=== PATIENT | female | born 1940 | race Caucasian/White ===

== ENCOUNTER → 2017-07-26 12:54 | Outpatient (CLI) | payer MEDICARE, OTHER, SELFPAY ==
--- NOTE | 2017-07-26 12:57 | CT_ITS ---
STUDY: CT RIGHT SHOULDER REASON FOR EXAM: Female, 76 years old. Osteoarthritis. RADIATION DOSAGE (If Supplied By Facility): CTDIvol = ( 24.58 ) mGy, DLP = ( 376.22 ) mGycm TECHNIQUE: The patient was scanned in a multi detector CT scanner. High resolution transaxial imaging was performed without the administration of intravenous contrast material. Sagittal and coronal images were reconstructed. Individualized dose optimization techniques were used for this CT. COMPARISON: None. FINDINGS: No acute fracture or dislocation. Very severe glenohumeral osteoarthritis. There is [id number] osteoarthritis with sclerosis of the glenoid and humeral head, flattening of the articular surface of the humerus, and prominent osteophytes. There are calcifications seen between the humeral head and acromion consistent with calcific tendinitis. Cannot exclude rotator cuff tear. There is a probable fluid density mass in the anterior subcoracoid space approximately 4.7 cm in size and best seen on axial image 27 most consistent with a large ganglion cyst. CT/Extremity Upper without Contra IMPRESSION: No fracture or dislocation. Severe long-standing glenohumeral osteoarthritis. Probable calcific tendinitis. MRI recommended. Electronically Signed: Chip Solitario MD at 18:21 EDT , Service support ,
== END ==
PROVIDERS: Family Provider Student in an Organized Health Care Education/Training Program; PCP Student in an Organized Health Care Education/Training Program; Visit Provider Specialist
DX: M19.211 Secondary osteoarthritis, right shoulder (principal)
CPT/HCPCS: 73200

== ENCOUNTER 2017-11-28 05:56 | Inpatient (IN) | payer MEDICARE, OTHER, SELFPAY ==
--- NOTE | 2017-11-13 14:07 | PCM.HP.BLA ---
History and Physical DATE OF SURGERY: 11/28/2017 SCHEDULED PROCEDURE: Right Reverse Total Shoulder Arthroplasty HISTORY OF PRESENT ILLNESS: This is a 77-year-old female who has been having ongoing pain in her bilateral shoulders for the past 1-2 years. Patient's states the right side is worse than her left. Patient is right-hand dominant. Patient states she has difficult time with any activities that require any overhead lifting. Pain is primarily over the lateral aspect of the shoulder and into the upper arm. She feels there is more limitation of range of motion on the right when compared to the left. She also complains of weakness bilateral shoulders. Patient has tried previous conservative measures consisting of nonsteroidal anti-inflammatories, corticosteroid injection, and physical therapy. Patient continues to have significant dysfunction of the right shoulder. She states it is keeping her up and she has difficult time with sleeping. She has been struggling with activities of daily living. After failing conservative measures and discussing all treatment options of Dr. David Nieto, the patient would like to proceed with a right reverse total shoulder arthroplasty. We are obtaining surgical clearance from patient's primary care physician. Patient currently denies any chest pain, shortness of breath, fevers chills, recent infections. Patient has pertinent medical history for hypertension. REVIEW OF SYSTEMS: ROS: Const: Denies anorexia, anxiety, change in appetite, fever, hard of hearing, vision problems and weight change. CV: Denies chest pain, heart murmur, irregular heartbeat and peripheral vascular disease. Resp: Denies asthma, cough, pneumonia, sleep apnea, SOB, tuberculosis and wheezing. GI: Reports constipation and heartburn, but denies diarrhea, difficulty swallowing, nausea, bloody stools and vomiting. : Genital: reports postmenopausal. Urinary: denies incontinence. Musculo: Reports weakness, but denies leg swelling, limp and trouble walking. Skin: Denies Raynaud's, history of shingles and tattoo. Neuro: Reports dizziness and vertigo but denies ambulatory dysfunction, numbness/tingling and tremor. Psych: Reports stress, but denies anxiety, depression, insomnia and mental illness. Ferdinand/Lymph: Denies anemia, bleeding/bruising tendency and past transfusion. Reviewed, no changes. PAST MEDICAL HISTORY: Advance Care Plan: Other Directive, POA Effective Date: 09/11/2014 Other Directive, LIVING WILL Effective Date: 09/11/2014 PMH: Medical Problems: Arthritis, High Blood Pressure, Thyroid Disease, Hard Of Hearing, Hypercholesterolemia Accidents: None Surgical Hx: Gallbladder - (1984) [facility] Tonsillectomy - (1952) [facility] Knee Replacement LT - (06/09/2008) DR MONROY AT [facility] RT TKR - (01/12/2009) DR MONROY [facility] Anesthesia Complications: None Assistive Devices: Glasses, Dentures, Hearing Aid Reviewed, no changes. 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 Personal Habits: Cigarette Use: Never.Alcohol: Occasionally.Drug Use: Denies Use.Enjoy Exercising: Never Exercises. Reviewed, no changes. VITALS: Ht: 62 Wt: 170lb Wt k.112 BMI: 31.1 BP: 147/102 Pulse: 54 Resp: 16 T: 97.9 T: 36.6C ALLERGIES: Morphine MEDICATIONS: Pravastatin Sodium 40 mg 1po qday, Levothyroxine Sodium 125 mcg 1po qday, Sertraline HCL 50 mg 1 by mouth every day, Aromasin 25 mg 1 tab PO daily, Losartan Potassium 25 mg 1 tab PO daily, Calcium 1500 mg 1 tab PO daily PRE-OP EXAM: General appearance:NORMAL Other: Eyes: Conjunctivae and lids: NORMAL Pupils: ERR Ears, Nose, Mouth, and Throat: NORMAL Other: Inspection of lips, teeth and gums: NORMAL Other: Neck: Examination of neck: no masses noted. Respiratory: Assessment of respiratory effort: NORMAL Other: Auscultation of lungs: clear to auscultation no wheezes, rhonchi or rales. Cardiovascular: Auscultation of heart: regular rate and rhythm, no murmurs, gallops or rubs. Exam of carotid arteries: NORMAL Other: Gastrointestinal: Exam of abdomen: soft, nontender, nondistended bowel sounds present. PHYSICAL EXAMINATION: Right shoulder is cool to touch without erythema. There is mild atrophy appreciated. Shoulder range of motion on the right 80 active forward flexion, passive forward flexion to 85. External rotation is -10 on the right, internal rotation T12 on the right and T8 on the left. Patient does have scapular dyskinesia with crepitus bilaterally. Supraspinatus strength 4/5 on the right. Sensations intact to light touch. IMAGING STUDIES: 1. X-rays of the right shoulder reveal severe glenohumeral osteoarthritis with posterior glenoid wear. There is joint space narrowing, osteophyte formation, and subchondral sclerosis. 2. MRI of the right shoulder show severe osteoarthritis with near full-thickness tear of the rotator cuff IMPRESSION: 1. 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 Hypertension 3. Thyroid disease 4. Hypercholesterolemia PLAN: Dr. Nieto did discuss and review with the patient all treatment options including surgical versus nonsurgical options. Patient does wish to proceed with the above-stated procedure. Potential risks, benefits, and complications of the procedure were discussed in detail including but not limited to , infection, nerve and blood vessel damage, persistent pain, numbness, tingling, paresthesias, blood clot, pulmonary embolism, and requirement for possible further surgery. The patient expressed full understanding and has no further questions for the doctor. Patient does agree to proceed with the above-stated procedure and has signed the surgery consent form. ___ I have re-examined the patient. There are no clinical changes since date of exam. ___ See progress notes for changes. ___ Dictated on admission Date: Time: Signature:
[2017-11-13 14:57] VITALS: BP 139/72; PULSE 53; RESP 16; TEMP 36.9; O2SAT 94; BMI 31.1
--- NOTE | 2017-11-13 15:30 | SDCEKG_ITS ---
Test Reason : Blood Pressure : / mmHG Vent. Rate : 051 BPM Atrial Rate : 051 BPM P-R Int : 158 ms QRS Dur : 088 ms QT Int : 426 ms P-R-T Axes : 002 019 000 degrees QTc Int : 392 ms Sinus bradycardia Nonspecific T wave abnormality Abnormal ECG Confirmed by MASSIEL SIMMS, IZAIAH ([id number]), editor newspaper BRIANNA THAO ([id number]) on 11/16/2017 12:04:56 PM Referred By: David Nieto Confirmed By:IZAIAH RANKIN MD
[2017-11-13 15:45] LABS: Absolute Lymphocyte Count 1.92 X10^3/ul (0.83-4.51); Absolute Neutrophil Count 5.2 X10^3/uL (2.0-7.7); Basophil# 0.04 X10^3/uL; Basophil% 0.5 % (0-1); Eosinophil# 0.25 X10^3/uL; Eosinophils% 3.1 % (0-5); Hematocrit 38.2 % (37-47); Hemoglobin 12.7 g/dl (12.0-15.0); Lymphocyte # 1.92 X10^3/ul (4.0); Lymphocyte % 23.6 % (19-41); Mean Corp Hgb Conc 33.2 g/gl (32-36); Mean Corpuscular Hgb 30.5 pg (27.0-32.0); Mean Corpuscular Volume 91.6 fL (81-99); Mean Platelet Vol. 11.2 fl (6.2-12.0); Monocyte# 0.74 X10^3/uL; Monocyte% 9.1 % (0-10); Neutrophil # 5.16 X10^3/uL (2.7-7.7); Neutrophil % 63.6 % (47-70); Platelet Count 247 K/mm3 (150-450); RBC Distribution Width CV 13.7 % (11.6-14.6); RBC Distribution Width SD 45.2 fl (35.1-43.9); Red Blood Count 4.17 M/mm3 (4.2-5.4); White Blood Count 8.1 K/mm3 (4.4-11.0)
[2017-11-13 15:48] LABS: POSITIVE COUNT NO; POSITIVE DIFFERENTIAL NO; POSITIVE MORPHOLOGY NO
[2017-11-13 16:25] LABS: Anion Gap 9 (5-15); BUN 13 mg/dL (7-18); Calcium,Total 9.1 mg/dL (8.5-10.1); Chloride 106 mmol/L (98-107); Creatinine, Serum 0.81 mg/dL (0.55-1.02); EST Glomerular Filtration Rate 73 mL/min (>60); Est Glom Filt Rate - Afr Amer 88 mL/min (>60); Glucose 136 mg/dL (74-106); Sodium Level 143 mmol/L (136-145); Thyroid Stim Hormone (TSH) 2.27 uIU/mL (0.358-3.74)
[2017-11-28] VITALS (15 sets, daily range): BP systolic 134–192; BP diastolic 73–95; PULSE 56–89; RESP 16–18; TEMP 36.2–36.8; O2SAT 92–99; BMI 31.1
[2017-11-28] MEDS: oxyCODONE HCl Cr 10 MG Tablet PO (06:43)
[2017-11-28] MEDS: Celecoxib 200 MG Capsule 400 MG PO (06:44)
[2017-11-28] MEDS: Acetaminophen 500 MG Tablet 1000 MG PO ×3 (06:44→21:45)
--- NOTE | 2017-11-28 07:01 | PCM.OPRPT ---
Report of Operation Date of Procedure: 11/28/17 Pre-Operative Diagnosis: Right shoulder primary osteoarthritis. Right shoulder rotator cuff tear Post-Operative Diagnosis: Right shoulder primary osteoarthritis. Right shoulder rotator cuff tear Surgery/Procedure Performed:: Right reverse total shoulder replacement Description of Surgical Findings:: Stable shoulder well reduced extension service advisor: Kurt Thornton Type of Anesthesia:: General Anesthesiologist: Tiburcio Duarte Special Medications: 2 g Ancef, 1 g TXA at incision, 1 g TXA closure, 10 mg Decadron, joint cocktail (5 mg Duramorph, 30 mL of 0.5% Ropivicaine, 1000 units of epinephrine, 30 mg of Toradol), 1 g vancomycin throughout case Specimen's removed: Bony cuts Estimated Blood Loss (mL): 150 Fluids Replaced: 500 ML Description of Procedure: Components used 1. Equinox glenoid baseplate from [employer] for reverse TSA 2. Equinox 36 mm Glenosphere 3. Equinox 36mm, 0mm humeral liner 4. Equinox reverse TSA humeral adapter tray 0mm 5. Equinox humeral stem primary press-fit preserve 10 mm mm size Brief history/Operative indications: 77 yo F with history of R shoulder pain and cuff tear arthropathy. Patient failed conservative measures as mentioned in the H&P. After discussion of risk and benefits of reverse total shoulder replacement including but not limited to blood loss, DVTs, PEs, nerve vessel damage, infection, general risk of anesthesia including loss of life, instability and stiffness patient demonstrating understanding wish to proceed was able to sign informed consent. Medical clearance was obtained. Procedure: On the date of the procedure, patient's R upper extremity was marked in the preoperative area. Patient was taken back to the operating room where they were placed on the table in the supine position. Anesthesia assumed control of the C-spine and airway, then administered anesthetic. All bony prominences were identified well-padded, the head was secured and the patient was placed in the beachchair position at about 35? inclination. Anesthesia remained in control of the C-spine airway throughout the remainder of the procedure. Patient was then appropriately fastened to the table and the R upper extremity was prepped in a sterile fashion. The surgeons then scrubbed. Upon reentering the room, the R upper extremity was draped in a sterile fashion and the incision was marked out. Timeout was called, everyone agreed upon the side, the site, the procedure to be performed, patient identity and antibiotics given. Incision was taken down through skin and subcutaneous tissue, fat down to fascia. The stripe of the deltopectoral interval and cephalic vein were identified and blunt dissection was used to retract the deltoid. The cephalic vein was retracted laterally. Clavipectoral fascia was then incised and a cobra retractor was placed in the wound. The proximal one third of the pectoralis major insertion was released. Pectoralis tendon insertion was used to tenodesed the biceps tendon which was identified in the bicipital groove. Tenodesis was done with #1 Vicryl. Proximally we followed the biceps tendon after transecting it into the rotator interval. The rotator interval was split and the arm was externally rotated. The split was 1 cm medial to the bicipital groove. Subscapularis tendon was released. We released down the anterior portion of the humeral head and a vieyra elevator was used to release the inferior portion of the humeral head. The arm was externally rotated and the shoulder was dislocated. The [employer] humeral head cutting guide was used to make humeral cut. This was done at 20? retroversion. Once his humeral head cut was made humerus was retracted out of the way and the glenoid was exposed. After exposing the glenoid, the labrum and the remaining proximal biceps were debrided. At this time we are able to view the entire outer edge of the glenoid. A central pin was placed we sequentially reamed over this central pin to 38mm. Once this was completed the central pedicle was drilled. The glenoid baseplate was impacted into place. Wound was closely irrigated out with normal saline we then drilled sequentially for 4 screws. Screws were placed superiorly and inferiorly and tightened down the screws. Then anteriorly and posteriorly. Once the screws were appropriately tightened into place the glenoid baseplate was compressed against the exposed subchondral bone. Locking caps were placed and a 36mm glenosphere was impacted into place engaging the Jeffers taper. The central screw was then tightened into place. Attention was then turned towards the humerus. The humerus was again externally rotated exposing the proximal portion of the humerus. Central canal finder was then used to open up the canal. We then broached to a 10mm stem. We trialed the 0mm liner, with the 0mm humeral baseplate. We obtained an adequate reduction at this time with a nice stable shoulder. Good internal rotation to the gluteus, forward elevation to 140?, external rotation to 20?. Final components were then assembled on the back table, trials were removed and the wound was copiously irrigated with normal saline after dislocating the shoulder. Once the final components were assembled they were impacted into place. Shoulder was then reduced and found to be stable with good range of motion. Subscapularis tendon not repairable. The wound was then copiously irrigated out with a 1 L normal saline lavage. The deltopectoral fascia was then closed using #1 Vicryl skin was closed using 2-0 Vicryl interrupted sutures and final skin closure was done with 3-0 Monocryl. Steri-Strips are placed for final skin closure. Sterile dressing was placed patient was then placed in a sling and awakened by anesthesia. Patient was then transferred to the PACU for recovery. Postoperative plan: Patient will be admitted to the hospital overnight. They will get physical therapy starting in 2 weeks with normal postoperative regimen. Patient will be placed on 325 mg aspirin daily for DVT prophylaxis. The first postoperative appointment will be in 2 weeks for wound check and initiation of phase 1 physical therapy. During the course of the procedure the physician assistant customer service manager played a vital role. His intimate knowledge of my steps in the procedure aided in safe and expedient completion of the procedure. The PA played a vital rolls in positioning particularly in obtaining the appropriate beach chair position and securing the patient's body and head to the table. The PA was also vital in the retraction of soft tissues during the exposure and especially the glenoid work as this is a vital part of the procedure to prevent neurovascular damage. the PA was also vital and protecting soft tissues during times of bony cuts and reaming. He also played a vital role in closure with my direct supervision. The PA was also important during reduction and dislocation of the joint and trials intraoperatively. Grafts/Implants Used: [employer] Equinox preserve stem - Complications NONE - Admit VTE Documentation VTE Present on Admission: No VTE Mechan Device Prophylaxis: SCD's VTE Pharm Prophylaxis ordered?: Yes
[2017-11-28] MEDS: Cefazolin 2 GM in 0.9% Normal Saline 100 ML IV (08:01)
--- NOTE | 2017-11-28 10:10 | RAD_ITS ---
RAD/Shoulder One View IMPRESSION: Appropriate postsurgical features. Correlate with operative report. Electronically Signed: Macho Karen, at 10:26 EDT Tel , Service support ,
--- NOTE | 2017-11-28 10:33 | SUR.PHASEI ---
1012 pt awake. speech slurred. pt aware that voice sounds different. tongue midline, eye brow raise equal, equal santos hand grasps, equal pedal pushes. Dr Bonilla paged.
[2017-11-28] MEDS: Lactated Ringers 1,000 ML 125 ML IV ×2 (13:17→21:52)
--- NOTE | 2017-11-28 14:15 | PCM.CONS.GEN ---
Problem List (1) Dysphonia Status: Acute Reason for Consult Date of Consultation: 11/28/17 History of Present Illness: The patient is a 77 year old F admitted today for right upper extremity orthopedic procedure. a local block was performed in the right lower neck. the patient then became hoarse, with globus sensation. she had no other complaints. the procedure was completed per usual; the patient had an uneventful intubation and extubation. Past Medical History Allergies morphine Adverse Reaction (Verified 11/13/17 14:45) Vomiting Home Medications: Ambulatory Orders Medication Instructions Recorded Levothyroxine [Synthroid] 125 mcg PO DAILY 01/30/13 Metoprolol Tartrate [Lopressor] 25 mg PO BID 01/30/13 Pravastatin [Pravachol] 40 mg PO QHS 01/30/13 Sertraline HCl [Zoloft] 100 mg PO DAILY 12/04/15 Acetaminophen [Tylenol Extra 500 mg PO DAILY PRN PRN 11/13/17 Strength] Calcium Carbonate [Calcium] 1,500 mg PO QHS 11/13/17 Exemestane [Aromasin] 25 mg PO DAILY 11/13/17 Smoking Status: Never smoker Tobacco Use: Non-smoker Review of Systems HEENT: Denies: Head Aches, Sinus Congestion, Sinus Drainage Cardiovascular: Denies: Chest Pain, Palpitations Respiratory: Reports: - - no stridor. Denies: Cough, Shortness of breath at rest, Sputum production Patient Problems: Active and Suspected Problems Dysphonia (Acute) - Physical Exam General: Alert, Oriented x3, Cooperative HEENT: Atraumatic, PERRLA, EOMI, Normocephalic Neck: Supple, No JVD, Negative Carotid Bruits Lungs: - - no stridor Vital Signs Temp Pulse Resp BP Pulse Ox 97.1 F L 80 18 169/81 H 97 11/28/17 13:52 11/28/17 14:06 11/28/17 13:52 11/28/17 14:06 11/28/17 13:52 Oxygen Flow Rate (L/min) 2 Oxygen Delivery Method Nasal Cannula Weight: 77.111 kg Body Mass Index (BMI) 31.1 Intake and Output for Last 24 Hours 11/26/17 11/27/17 11/28/17 23:59 23:59 23:59 Intake Total 700 / 700 Balance 700 / 700 Assessment/Plan All Active Problems Dysphonia (Acute) 77 year old female with dysphonia after right-sided block. -PO liquid challenge demonstrated no aspiration symptoms -flexible laryngoscopy showed an immobile right vocal cord, in the paramedian position. left cord mobile. airway widely patent -recommend slow PO intake for the remainder of the day (specifically, sips of liquids. no restrictions for solids) -f/u with dr guy in clinic whenever convenient this week - [id number]
--- NOTE | 2017-11-28 14:21 | PCM.OPRPT ---
Problem List (1) Dysphonia Status: Acute Report of Operation Date of Procedure: 11/28/17 Pre-Operative Diagnosis: dysphonia Post-Operative Diagnosis: dysphonia Surgery/Procedure Performed:: fiberoptic flexible laryngoscopy book packer: none Type of Anesthesia:: None Description of Procedure: the tip of the flexible laryngoscope was placed into the right nasal cavity. this was advanced to the nasopharynx. no nasopharyngeal masses. the supraglottis was normal including the epiglottis and arytenoids. the right vocal cord was immobile and paramedian. the left cord moved normally. the airway was widely patent. there were no masses or mucosal irregularities.
[2017-11-28] MEDS: Famotidine 20 MG Tablet PO (14:40)
[2017-11-28] MEDS: Aspirin 325 MG Tablet PO (14:40)
[2017-11-28] MEDS: Sertraline 100 MG Tablet PO (14:40)
[2017-11-28] MEDS: Cefazolin 1 GM/50 ML BAG IV (16:26)
[2017-11-28] MEDS: Pravastatin 40 MG Tablet PO (21:44)
[2017-11-28] MEDS: Calcium (Elemental) 500 MG Tablet 1500 MG PO (21:45)
[2017-11-28] MEDS: Metoprolol Tartrate 25 MG Tablet PO (21:45)
[2017-11-28] MEDS: oxyCODONE 5 MG Tablet PO (21:49)
[2017-11-29] MEDS: Cefazolin 1 GM/50 ML BAG IV (00:06)
[2017-11-29 02:05] VITALS: BP 140/72; PULSE 80; RESP 18; TEMP 36.5; O2SAT 97
[2017-11-29] MEDS: Acetaminophen 500 MG Tablet 1000 MG PO (05:44)
[2017-11-29] MEDS: Levothyroxine 125 MCG Tablet PO (05:44)
[2017-11-29] MEDS: Lactated Ringers 1,000 ML 125 ML IV (05:45)
--- NOTE | 2017-11-29 07:13 | PCM.PN.ORT ---
Patient Problems: Active and Suspected Problems Dysphonia (Acute) Subjective: The patient was sitting in bed upon examination. Patient denies any chest pain, shortness of breath, dizziness, lightheadedness, nausea or vomiting, or calf pain. Pain is controlled on medications. No adverse overnight events. Patient did have vocal cord paralysis secondary to the block. ENT was consulted. Patient states the symptoms she was having last night have resolved this morning. She feels much better. She denies any sore throat, hoarseness, or difficulty swallowing. Patient states the shoulder is doing well and she does wish to go home today. Objective: Dressing is C/D/I Ultra-sling fitting appropriately Sensation intact to axillary, radial, median, and ulnar distribution Motor intact to AIN, PIN, and ulnar nerve - Physical Exam General: Alert, Oriented x3, Cooperative, No apparent distress Vital Signs Temp Pulse Resp BP Pulse Ox 97.7 F L 80 18 140/72 H 97 11/29/17 02:05 11/29/17 02:05 11/29/17 02:05 11/29/17 02:05 11/29/17 02:05 Oxygen Flow Rate (L/min) 2 Oxygen Delivery Method Room Air Weight: 77.111 kg Body Mass Index (BMI) 31.1 Intake and Output for Last 24 Hours 11/27/17 11/28/17 11/29/17 23:59 23:59 23:59 Intake Total 2151 / 2151 1570 / 1570 Output Total 950 / 950 Balance 2151 / 2151 620 / 620 Medical Necessity - Tobacco Use Smoking Status: Never smoker Tobacco Use: Non-smoker Assessment/Plan All Active Problems Dysphonia (Acute) 1. S/P right reverse total shoulder arthroplasty POD #1 2. Continue Pain Medications: Tylenol and oxycodone 3. DVT Prophylaxis: Aspirin 325 mg daily 4. PT/OT: Okay to work on elbow, wrist, hand range of motion and pendulum exercises. No range of motion of the right shoulder. Outpatient formal physical therapy will begin after 2 week postop follow-up. Continue UltraSling at all times. 5. Vocal cord paralysis: Occurred after block, patient's symptoms have resolved. ENT was consulted and patient will follow-up as an outpatient this week. 6. Encouraged Incentive Spirometry 7. Disposition: Plan is for discharge home today. Prescriptions will be E scribed to [facility]. Patient will follow-up per postop instructions. Patient is to follow-up with ENT this week secondary to the vocal cord paralysis.
--- NOTE | 2017-11-29 07:22 | PCM.DC.ORTHO ---
Discharge Diet: No Restrictions Discharge Activity: May Not Drive May shower in (days): 1 - Turned dressing away from water Ice area for (Minutes): 20 - Every 1-2 hours while awake Weight Bearing Status: No weight bearing - Right upper extremity Call your doctor if your incision/area has: Continuous Slow Oozing, Sudden Increased Bleeding, Increased Pain/ Swelling, Increased Redness, Foul Smelling Discharge Call your doctor if you observe: Fever of 101 or Higher, Coldness, Increased Pain, Numbness or Tingling, Change in Color Remove Dressing in (days):: 4 - Okay to remove on December 03, 2017 Additional Instructions: Follow [facility] postop instructions Allergies/Adverse Reactions: Allergies morphine Adverse Reaction (Verified 11/13/17 14:45) Vomiting Medications to take at Discharge Levothyroxine [Synthroid] 125 mcg PO DAILY 01/30/13 Metoprolol Tartrate [Lopressor (beta alina)] 25 mg PO BID 01/30/13 Pravastatin [Pravachol] 40 mg PO QHS 01/30/13 Sertraline HCl [Zoloft] 100 mg PO DAILY 12/04/15 Calcium Carbonate [Calcium] 1,500 mg PO QHS 11/13/17 Exemestane [Aromasin] 25 mg PO DAILY 11/13/17 Acetaminophen [Tylenol] 1,000 mg PO Q8 #60 tab 11/29/17 Aspirin 325 mg PO DAILY@0800 #13 tab 11/29/17 Famotidine [Pepcid] 20 mg PO DAILY #13 tab 11/29/17 Oxycodone [Oxyir] 5 - 10 mg PO Q4H PRN PRN 4 Days #45 tablet 11/29/17 Senna/Docusate Sodium [Senokot-S] 2 tab PO BID PRN PRN #20 tab 11/29/17 The following prescriptions were given: Oxycodone [Oxyir] 5 - 10 mg PO Q4H PRN PRN 4 Days #45 tablet PRN Reason: Pain Acetaminophen [Tylenol] 1,000 mg PO Q8 #60 tab Aspirin 325 mg PO DAILY@0800 #13 tab Famotidine [Pepcid] 20 mg PO DAILY #13 tab Senna/Docusate Sodium [Senokot-S] 2 tab PO BID PRN PRN #20 tab PRN Reason: Constipation Primary Care Physician: Vini Sparks DO [Primary Care Provider] - Test Results: Test results from this visit will be discussed in further detail at your follow-up appointment, if applicable. Please Follow Up With: Michi Lopez MD When: follow up this week Please Follow Up With: physical therapy When: as scheduled, must schedule after 2 week post-op visit @ [facility] Please Follow Up With: Kurt Thornton PA-C When: 12/11/17 @ 10:30 am
[2017-11-29 07:47] VITALS: BP 160/68; PULSE 61; RESP 18; TEMP 37.1; O2SAT 95
[2017-11-29 07:54] VITALS: PULSE 61
[2017-11-29] MEDS: Aspirin 325 MG Tablet PO (07:54)
[2017-11-29] MEDS: Famotidine 20 MG Tablet PO (07:54)
[2017-11-29] MEDS: Metoprolol Tartrate 25 MG Tablet PO (07:54)
[2017-11-29] MEDS: Sertraline 100 MG Tablet PO (07:54)
[2017-11-29 09:18] VITALS: PULSE 79; RESP 17
[2017-11-29] MEDS: 0.9% NaCl Peripheral Flush Adult/Peds IV (09:33)
--- NOTE | 2017-11-29 12:05 | CASEMGMT ---
SYLVIE LOPEZ Face to Face with patient for initial transition planning/care coordination assessment. RN JESSICA introduced self and role at [facility]. Patient sitting in chair, alert and oriented, family at bedside. Patient willing to participate in assessment and is able to answer all questions appropriately. Care providers, pharmacy, and demographics verified. Patient lives with and has family that can assists with transportation. Patient denies needs at this time. Patient wishes to discharge home with follow-up plans at [facility]. Patient states she has no further needs or concerns at this time. CM to follow for discharge planning needs that may arise. Disposition Plan: Patient to discharge home with family support and follow-up plans in place. Lexus MENDEZ, RN, CM
== END 2017-11-29 12:58 | disposition home or self-care (01) | DRG 483 ==
LOC: MS3 05:56
PROVIDERS: Anesthesiology; Admitting Provider Specialist; Family Provider Student in an Organized Health Care Education/Training Program; PCP Student in an Organized Health Care Education/Training Program; Visit Provider Specialist
PROC: 0RRJ00Z Replacement of Right Shoulder Joint with Reverse Ball and Socket Synthetic Substitute, Open Approach (ICD-10-PCS; CPT 23472; principal; 2017-11-28 07:30)
DX: M19.211 Secondary osteoarthritis, right shoulder (principal); M75.101 Unspecified rotator cuff tear or rupture of right shoulder, not specified as traumatic; R49.0 Dysphonia; J38.01 Paralysis of vocal cords and larynx, unilateral; I10 Essential (primary) hypertension; E78.00 Pure hypercholesterolemia, unspecified; F32.9 Major depressive disorder, single episode, unspecified; E06.9 Thyroiditis, unspecified; T88.59XA Other complications of anesthesia, initial encounter; Z85.3 Personal history of malignant neoplasm of breast; Z79.899 Other long term (current) drug therapy
CPT/HCPCS: 73020; 80048; 84443; 85025; 87077; 87081; 93005; 97166; 97530; C1776; J7050; J7120; A4216

== ENCOUNTER 2019-01-09 06:23 | Inpatient (IN) | payer MEDICARE, OTHER, SELFPAY ==
--- NOTE | 2018-12-31 23:31 | PCM.HP.BLA ---
History and Physical Patient Name: Harjit Gooden : 1940 From: MIGNON RUIZ PA-C DATE OF SURGERY: 01/09/2019 SCHEDULED PROCEDURE: left reverse total shoulder arthroplasty and distal clavicle excision HISTORY OF PRESENT ILLNESS: Preoperative history and physical exam was performed on December 31, 2018. This is a 78-year-old female who has been having ongoing pain in her left shoulder which has progressively become worse. Pain is been present for over a year. Patient does feel a large knot over the top of the shoulder. She denies any cervical neck pain or numbness and tingling. Pain can reach as high as an 8/10 with activity. Pain is increased with any wishing, pulling or reaching out and overhead. Activities of daily living including driving increase her pain. She has difficult time getting dressed and doing her hair due to the pain. She has had a previous corticosteroid injection which only gave 1-2 weeks of relief. She has tried oral medications consisting of Tylenol. Patient has severe glenohumeral osteoarthritis with associated chronic rotator cuff dysfunction. Patient is also getting an MRI of the left shoulder to rule out any pathological process of the distal clavicle. Patient currently denies any chest pain, shortness of breath, fevers chills, recent infections. Patient has medical history pertinent for hypertension, thyroid disease, previous breast cancer. She has obtain surgical clearance or patient's primary care physician Dr. Sparks. After failing conservative measures and discussing treatment options with Dr. David Nieto, the patient would like to proceed with a left reverse total shoulder arthroplasty and distal clavicle excision. Patient has undergone a previous reverse total shoulder arthroplasty on the right on November 28, 2017. REVIEW OF SYSTEMS: ROS: Const: Denies anorexia, anxiety, change in appetite, fever, hard of hearing, vision problems and weight change. CV: Denies chest pain, heart murmur, irregular heartbeat and peripheral vascular disease. Resp: Denies asthma, cough, pneumonia, sleep apnea, SOB, tuberculosis and wheezing. GI: Reports constipation and heartburn, but denies diarrhea, difficulty swallowing, nausea, bloody stools and vomiting. : Genital: reports postmenopausal. Urinary: denies incontinence. Musculo: Reports weakness, but denies leg swelling, limp and trouble walking. Skin: Denies Raynaud's, history of shingles and tattoo. Neuro: Reports dizziness and vertigo but denies ambulatory dysfunction, numbness/tingling and tremor. Psych: Reports stress, but denies anxiety, depression, insomnia and mental illness. Ferdinand/Lymph: Denies anemia, bleeding/bruising tendency and past transfusion. Reviewed, no changes. PAST MEDICAL HISTORY: Advance Care Plan: Other Directive, POA Effective Date: 09/11/2014 Other Directive, LIVING WILL Effective Date: 09/11/2014 PMH: Medical Problems: Arthritis, High Blood Pressure, Thyroid Disease, Hard Of Hearing, Hypercholesterolemia, Depression Accidents: None Surgical Hx: Gallbladder - (1984) LODI Tonsillectomy - (1952) LODI Knee Replacement LT - (06/09/2008) DR MONROY AT [facility] RT TKR - (01/12/2009) DR MONROY [facility] RT TSR Revision - (11/28/2017) [email or web address] Anesthesia Complications: None Assistive Devices: Glasses, Dentures, Hearing Aid Reviewed, no changes. 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 Personal Habits: Cigarette Use: Never.Alcohol: Occasionally.Drug Use: Denies Use.Enjoy Exercising: Never Exercises. Reviewed, no changes. VITALS: Ht: 61.5 Wt: 169lb Wt k.658 BMI: 31.4 BP: 118/68 Pulse: 70 Resp: 18 T: 99.6 T: 37.6C ALLERGIES: Morphine MEDICATIONS: Pravastatin Sodium 40 mg 1po qday, Levothyroxine Sodium 125 mcg 1po qday, Sertraline HCL 50 mg 1 by mouth every day, Aromasin 25 mg 1 tab PO daily, Losartan Potassium 25 mg 1 tab PO daily, Calcium 1500 mg 1 tab PO daily PRE-OP EXAM: General appearance:NORMAL Other: Eyes: Conjunctivae and lids: NORMAL Pupils: ERR Ears, Nose, Mouth, and Throat: NORMAL Other: Inspection of lips, teeth and gums: NORMAL Other: Neck: Examination of neck: no masses noted. Respiratory: Assessment of respiratory effort: NORMAL Other: Auscultation of lungs: clear to auscultation no wheezes, rhonchi or rales. Cardiovascular: Auscultation of heart: regular rate and rhythm, no murmurs, gallops or rubs. Gastrointestinal: Exam of abdomen: soft, nontender, nondistended bowel sounds present. PHYSICAL EXAMINATION: Examination of the left shoulder reveals 2 cm x 2 cm round nodule over the top of the shoulder. Left shoulder scope to touch without erythema. Range of motion left shoulder: Forward elevation 100, external rotation 10, internal rotation to back pocket on the left. Supraspinatus strength on the left 4/5. Scapular dyskinesia with range of motion. IMAGING STUDIES: Previous x-rays of the left shoulder reveal severe arthrosis of the glenohumeral joint with large osteophyte on the femoral head and glenoid with a loose body and the inferior pouch. There is central wear pattern of the glenoid. There is also associated rotator cuff dysfunction. There is a small area in the distal clavicle with loss of normal cortical contour concerning for bony lesion. There is associated joint space narrowing and osteophyte formation consistent with severe chronic radicular osteoarthritis. IMPRESSION: 1. Severe left shoulder glenohumeral osteoarthritis with rotator cuff dysfunction 2. Hypertension 3. Thyroid disease 4. Hypercholesterolemia 5. Depression 6. History of breast cancer PLAN: Dr. David Nieto did discuss and review with the patient all treatment options including surgical versus nonsurgical options. Patient does wish to proceed with the above-stated procedure. Potential risks, benefits, and complications of the procedure were discussed in detail including but not limited to , infection, nerve and blood vessel damage, persistent pain, numbness, tingling, paresthesias, blood clot, pulmonary embolism, and requirement for possible further surgery. The patient expressed full understanding and has no further questions for the doctor. Patient does agree to proceed with the above-stated procedure and has signed the surgery consent form. This dictation was created using voice recognition software. Phonetic and/or grammatical errors may exist.. ___ I have re-examined the patient. There are no clinical changes since date of exam. ___ See progress notes for changes. ___ Dictated on admission Date: Time: Signature:
[2019-01-03 15:21] VITALS: BP 124/65; PULSE 62; RESP 17; TEMP 36.5; O2SAT 98; BMI 32.1
[2019-01-03 16:55] LABS: Thyroid Stim Hormone (TSH) 2.16 uIU/mL (0.358-3.74)
[2019-01-09] VITALS (13 sets, daily range): BP systolic 121–168; BP diastolic 67–90; PULSE 53–75; RESP 16–18; TEMP 36.2–36.9; O2SAT 96–100; BMI 32.1; BMI 31.2
[2019-01-09] MEDS: Gabapentin 600 MG Tablet PO (07:00)
[2019-01-09 07:05] LABS: Bedside Glucose 75 mg/dL (70-110)
--- NOTE | 2019-01-09 07:06 | RAD_ITS ---
STUDY: X-RAY - LEFT SHOULDER REASON FOR EXAM: Female, 78 years old. Left shoulder replacement. TECHNIQUE: 2 view(s) of the shoulder. COMPARISON: None. FINDINGS: The patient is status post left reverse shoulder replacement. There is good alignment. Increased markings at the lung bases suggest bibasilar atelectasis with blunting of the left costophrenic angle. RAD/Shoulder min 2 Views IMPRESSION: Status post reverse left shoulder replacement. There is good alignment. Electronically Signed: Carlitos Rainey, at 15:28 EDT , Service support ,
[2019-01-09] MEDS: Acetaminophen 500 MG Tablet 1000 MG PO ×3 (07:09→22:24)
[2019-01-09] MEDS: Magnesium Sulfate 4gm/100mL 4 GM/100 ML IV.SOLN. IV (07:10)
[2019-01-09] MEDS: Celecoxib 200 MG Capsule 400 MG PO (07:10)
[2019-01-09] MEDS: Lactated Ringers 1,000 ML 999 ML IV ×2 (07:19→12:37)
[2019-01-09] MEDS: Cefazolin 2 GM in 0.9% Normal Saline 100 ML IV (08:55)
--- NOTE | 2019-01-09 10:34 | PCM.OPRPT ---
Report of Operation Date of Procedure: 01/09/19 Pre-Operative Diagnosis: 1. Left shoulder severe cuff tear arthropathy. 2. 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 Left shoulder severe cuff tear arthropathy. 2. 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 Left reverse total shoulder replacement. 2. Left distal clavicle resection Description of Surgical Findings:: Stable shoulder. 5 mm distal clavicle resected. nitrocellulose maker: Anthony Valentin Type of Anesthesia:: General Anesthesiologist: Alessandro Baker Special Medications: 2 g Ancef, 1 g TXA at incision, 1 g TXA closure, 10 mg Decadron, joint cocktail (5 mg Duramorph, 30 mL of 0.5% Ropivicaine, 1000 units of epinephrine, 30 mg of Toradol), vancomycin IV Specimen's removed: Bony cuts Estimated Blood Loss (mL): 100 Fluids Replaced: 1200 mL crystalloid Description of Procedure: Components used 1. Equinox glenoid baseplate from [employer] for reverse TSA 2. Equinox 36mm Glenosphere 3. Equinox 36mm, 0mm humeral liner 4. Equinox reverse TSA humeral adapter tray 0mm 5. Equinox humeral stem preserve 10 mm mm size Brief history/Operative indications: 78 yo F with history of left shoulder pain, severe chromic clavicular joint osteoarthritis and cuff tear arthropathy. Patient failed conservative measures as mentioned in the H&P. After discussion of risk and benefits of reverse total shoulder replacement including but not limited to blood loss, DVTs, PEs, nerve vessel damage, infection, general risk of anesthesia including loss of life, instability and stiffness patient demonstrating understanding wish to proceed was able to sign informed consent. Medical clearance was obtained. Procedure: On the date of the procedure, patient's L upper extremity was marked in the preoperative area. Patient was taken back to the operating room where they were placed on the table in the supine position. Anesthesia assumed control of the C-spine and airway, then administered anesthetic. All bony prominences were identified well-padded, the head was secured and the patient was placed in the beachchair position at about 35? inclination. Anesthesia remained in control of the C-spine airway throughout the remainder of the procedure. Patient was then appropriately fastened to the table and the L upper extremity was prepped in a sterile fashion. The surgeons then scrubbed. Upon reentering the room, the L upper extremity was draped in a sterile fashion and the incision was marked out. Timeout was called, everyone agreed upon the side, the site, the procedure to be performed, patient identity and antibiotics given. Incision was taken down through skin and subcutaneous tissue, fat down to fascia. Initially our attention was directed superiorly. We dissected superiorly over the acromioclavicular joint. 18-gauge needle was used to identify the joint. Once identified the joint and made a longitudinal arthrotomy. We then exposed the distal clavicle. Retractors were placed on anteriorly and posteriorly to the distal clavicle and a small saw was used to remove 5 mm of distal clavicle bone. This was removed without excess trauma. This was copiously with normal saline and then closed with #1 Vicryl. The stripe of the deltopectoral interval and cephalic vein were identified and blunt dissection was used to retract the deltoid. The cephalic vein was retracted laterally. Clavipectoral fascia was then incised and a cobra retractor was placed in the wound. The proximal one third of the pectoralis major insertion was released. Pectoralis tendon insertion was used to tenodesed the biceps tendon which was identified in the bicipital groove. Tenodesis was done with #1 Vicryl. Proximally we followed the biceps tendon after transecting it into the rotator interval. The rotator interval was split and the arm was externally rotated. The split was 1 cm medial to the bicipital groove. Subscapularis tendon was released. We released down the anterior portion of the humeral head and a vieyra elevator was used to release the inferior portion of the humeral head. The arm was externally rotated and the shoulder was dislocated. The [employer] humeral head cutting guide was used to make humeral cut. This was done at 20? retroversion. Once his humeral head cut was made humerus was retracted out of the way and the glenoid was exposed. After exposing the glenoid, the labrum and the remaining proximal biceps were debrided. At this time we are able to view the entire outer edge of the glenoid. A central pin was placed we sequentially reamed over this central pin to 36 mm mm. Once this was completed the central pedicle was drilled. The glenoid baseplate was impacted into place. Wound was closely irrigated out with normal saline we then drilled sequentially for 4 screws. Screws were placed superiorly and inferiorly and tightened down the screws. Then anteriorly and posteriorly. Once the screws were appropriately tightened into place the glenoid baseplate was compressed against the exposed subchondral bone. Locking caps were placed and a 36 mm glenosphere was impacted into place engaging the Jeffers taper. The central screw was then tightened into place. Attention was then turned towards the humerus. The humerus was again externally rotated exposing the proximal portion of the humerus. Central canal finder was then used to open up the canal. We then broached to a 10mm stem. We trialed the 0mm liner, with the 0mm humeral baseplate. We obtained an adequate reduction at this time with a nice stable shoulder. Good internal rotation to the gluteus, forward elevation to 140?, external rotation to 20?. Final components were then assembled on the back table, trials were removed and the wound was copiously irrigated with normal saline after dislocating the shoulder. Once the final components were assembled they were impacted into place. Shoulder was then reduced and found to be stable with good range of motion. Subscapularis tendon could not be repaired. Chlorhexidine lavage was performed for 1 minute. The wound was then copiously irrigated out with a 1 L normal saline lavage. The deltopectoral fascia was then closed using #1 Vicryl skin was closed using 2-0 Vicryl interrupted sutures and final skin closure was done with 3-0 Monocryl. Steri-Strips are placed for final skin closure. Sterile dressing was placed patient was then placed in a sling and awakened by anesthesia. Patient was then transferred to the PACU for recovery. Postoperative plan: Patient will be admitted to the hospital overnight. They will get physical therapy starting in 2 weeks with normal postoperative regimen. Patient will be placed on aspirin daily for DVT prophylaxis. The first postoperative appointment will be in 2 weeks for wound check and initiation of phase 1 physical therapy. Grafts/Implants Used: [employer] - Complications No intraoperative complications - Admit VTE Documentation VTE Present on Admission: No VTE Mechan Device Prophylaxis: SCD's, Thigh High JEREMIAS Hose VTE Pharm Prophylaxis ordered?: Yes
[2019-01-09] MEDS: Lactated Ringers 1,000 ML 125 ML IV ×2 (12:45→19:11)
--- NOTE | 2019-01-09 13:24 | CASEMGMT ---
Addendum entered by Marychuy Dominique 01/10/19 10:08: MATHEUS let pt know that the POA form is not in the chart and asked her to bring in the form as able. Pt states understanding. LIAM Rodriguez Original Note: Pt's living will in echart, but not POA. MATHEUS did print LW and placed it on the paper chart. RIGOBERTO RodriguezS
[2019-01-09] MEDS: Ensure Surgery 237 ML LIQUID PO ×2 (13:33→16:50)
[2019-01-09] MEDS: Famotidine 20 MG Tablet PO (13:35)
[2019-01-09] MEDS: Sertraline 50 MG Tablet PO (13:35)
--- NOTE | 2019-01-09 15:34 | NURSING ---
cap refill left hand wnl, fingers mobile shoulder immobilizer adjusted and pt ambulatory to br then to chair w/ sba
[2019-01-09] MEDS: Cefazolin 1 GM/50 ML BAG IV (16:50)
[2019-01-09] MEDS: Calcium (Elemental) 500 MG Tablet 1500 MG PO (16:51)
--- NOTE | 2019-01-09 16:57 | NURSING ---
pt able to move left fingers/squeezing device attached to left arm immobilizer cap refill wnl-pt has no pain
[2019-01-09] MEDS: Senna/Docusate Sodium 1 Tablet 2 TABLET PO (22:24)
[2019-01-09] MEDS: Pravastatin 40 MG Tablet PO (22:24)
[2019-01-10] MEDS: Cefazolin 1 GM/50 ML BAG IV (00:45)
[2019-01-10 00:52] VITALS: BP 131/64; PULSE 50; RESP 16; TEMP 36.5; O2SAT 95
[2019-01-10] MEDS: 0.9% NaCl Peripheral Flush Adult/Peds IV (01:27)
[2019-01-10] MEDS: Levothyroxine 125 MCG Tablet PO (05:07)
[2019-01-10] MEDS: Acetaminophen 500 MG Tablet 1000 MG PO (05:07)
[2019-01-10 05:14] VITALS: BP 122/70; PULSE 65; RESP 16; TEMP 36.4; O2SAT 96
[2019-01-10 06:04] LABS: Hematocrit 35.3 % (37-47); Hemoglobin 11.4 g/dL (12.0-15.0); Mean Corp Hgb Conc 32.3 g/dL (32-36); Mean Corpuscular Hgb 30.7 pg (27.0-32.0); Mean Corpuscular Volume 95.1 fL (81-99); Mean Platelet Vol. 11.3 fl (6.2-12.0); Platelet Count 157 K/mm3 (150-450); RBC Distribution Width SD 49.1 fl (35.1-43.9); Red Blood Count 3.71 M/mm3 (4.2-5.4); White Blood Count 11.7 K/mm3 (4.4-11.0)
[2019-01-10 06:26] LABS: Anion Gap 7 (5-15); BUN 12 mg/dL (7-18); BUN/Creat Ratio 19.1 RATIO (10-20); Calcium,Total 8.2 mg/dL (8.5-10.1); Chloride 110 mmol/L (98-107); Creatinine, Serum 0.63 mg/dL (0.55-1.02); EST Glomerular Filtration Rate 98 mL/min (>60); Est Glom Filt Rate - Afr Amer 118 mL/min (>60); Estimated Creatinine Clearance 38.35 ml/min; Glucose 118 mg/dL (74-106); Potassium 4.7 mmol/L (3.5-5.1); Sodium Level 141 mmol/L (136-145)
[2019-01-10 08:10] VITALS: BP 120/58; PULSE 58; RESP 18; TEMP 36.6; O2SAT 98
[2019-01-10] MEDS: Aspirin E.C. 81 MG Tablet PO (08:13)
[2019-01-10] MEDS: Famotidine 20 MG Tablet PO (08:13)
[2019-01-10] MEDS: Sertraline 50 MG Tablet PO (08:13)
[2019-01-10] MEDS: Ensure Surgery 237 ML LIQUID PO ×2 (08:13→11:50)
[2019-01-10] MEDS: Meloxicam 7.5 MG Tablet PO (08:13)
--- NOTE | 2019-01-10 09:05 | PN.ORTHO_ITS ---
Subjective: The patient was sitting in bedside chair upon examination. Patient denies any chest pain, shortness of breath, dizziness, lightheadedness, nausea or vomiting, or calf pain. Pain is controlled on medications. No adverse overnight events. Overall patient is doing very well. Her pain in the left shoulder is been well controlled. She is tolerating the UltraSling. She does wish to go home today. Objective: Vital signs stable, afebrile Dressing is clean, dry, intact Ultra-sling fitting appropriately Sensation intact to axillary, radial, median, and ulnar distribution Motor intact to AIN, PIN, and ulnar nerve - Physical Exam General: Alert, Oriented x3, Cooperative, No apparent distress Vital Signs Temp Pulse Resp BP Pulse Ox 97.8 F 58 L 18 120/58 L 98 01/10/19 08:10 01/10/19 08:10 01/10/19 08:10 01/10/19 08:10 01/10/19 08:10 Oxygen Flow Rate (L/min) 6 Oxygen Delivery Method Room Air Weight: 80 kg Body Mass Index (BMI) 31.2 Intake and Output for Last 24 Hours 01/08/19 01/09/19 01/10/19 23:59 23:59 23:59 Intake Total 4102.92 / 4102.92 1253.67 / 1253.67 Output Total 300 / 300 1400 / 1400 Balance 3802.92 / 3802.92 -146.33 / -146.33 Laboratory Tests Past 24 Hrs 01/10/19 01/10/19 05:48 05:48 WBC 11.7 H RBC 3.71 L Hgb 11.4 L Hct 35.3 L MCV 95.1 MCH 30.7 MCHC 32.3 RDW Std Deviation 49.1 H RDW Coeff of Beni 14.0 Plt Count 157 MPV 11.3 Sodium 141 Potassium 4.7 Chloride 110 H Carbon Dioxide 24.0 Anion Gap 7 BUN 12 Creatinine 0.63 Estim Creat Clear Calc 38.35 Est GFR (MDRD) Af Amer 118 Est GFR (MDRD) Non-Af 98 BUN/Creatinine Ratio 19.1 Glucose 118 H Calcium 8.2 L Medical Necessity - Tobacco Use Smoking Status: Never smoker Assessment/Plan All Active Problems Dysphonia (Acute) 1. S/P left reverse total shoulder arthroplasty POD #1 2. Continue Pain Medications: Tylenol and OxyIR 3. DVT Prophylaxis: Aspirin for 2 weeks postoperatively 4. PT/OT: Nonweightbearing left upper extremity. No range of motion left shoulder. Okay to work on pendulum, elbow/wrist/hand range of motion only. We will begin formal physical therapy 2 weeks postoperatively. 5. H & H: 11.4/35.3, asymptomatic 6. Reactive leukocytosis: Currently 11.7, afebrile. Patient did receive Decadron intraoperatively 7. Encouraged Incentive Spirometry 8. Disposition: Orthopedically stable, plan will be for discharge home today. Prescriptions will be E scribed to [facility] pharmacy. Patient will follow-up per postop instructions. Outpatient physical therapy has been established..
--- NOTE | 2019-01-10 09:12 | DCINST_ITS ---
Discharge Diet: No Restrictions Discharge Activity: May Not Drive May shower in (days): 1 - If dressing is intact to skin. Turn dressing away from water Ice area for (Minutes): 20 - Every 1-2 hours while awake Weight Bearing Status: No weight bearing - Left upper extremity Call your doctor if your incision/area has: Continuous Slow Oozing, Sudden Increased Bleeding, Increased Pain/ Swelling, Increased Redness, Foul Smelling Discharge Call your doctor if you observe: Fever of 101 or Higher, Coldness, Increased Pain, Numbness or Tingling, Change in Color Remove Dressing in (days):: 4 - Okay to remove on January 14, 2019 Additional Instructions: Follow orthopedic postop instructions Allergies/Adverse Reactions: Allergies morphine Adverse Reaction (Verified 01/09/19 06:52) Vomiting Medications to take at Discharge Levothyroxine [Synthroid] 125 mcg PO DAILY 01/30/13 Pravastatin [Pravachol] 40 mg PO QHS 01/30/13 Sertraline HCl [Zoloft] 50 mg PO DAILY 12/04/15 Calcium Carbonate [Calcium] 1,500 mg PO QHS 11/13/17 Letrozole [Femara] 2.5 mg PO DAILY 01/03/19 Acetaminophen [Tylenol] 1,000 mg PO Q8 14 Days #100 tab 01/10/19 Aspirin E.C. [Ecotrin] 81 mg PO DAILY@0800 #60 tab 01/10/19 Famotidine [Pepcid] 20 mg PO DAILY #14 tab 01/10/19 Meloxicam [Mobic] 7.5 mg PO BID #60 tab 01/10/19 Oxycodone [Oxyir] 5 mg PO Q4H PRN PRN 5 Days #30 tablet 01/10/19 Senna/Docusate Sodium [Senokot-S] 2 tab PO BID #15 tab 01/10/19 The following prescriptions were given: Aspirin E.C. [Ecotrin] 81 mg PO DAILY@0800 #60 tab Transmission Status: Pending to [facility] Meloxicam [Mobic] 7.5 mg PO BID #60 tab Transmission Status: Pending to [facility] Oxycodone [Oxyir] 5 mg PO Q4H PRN PRN 5 Days #30 tablet PRN Reason: Pain Score [id number] Transmission Status: Sent to [facility] Famotidine [Pepcid] 20 mg PO DAILY #14 tab Transmission Status: Pending to [facility] Senna/Docusate Sodium [Senokot-S] 2 tab PO BID #15 tab Transmission Status: Pending to [facility] Acetaminophen [Tylenol] 1,000 mg PO Q8 14 Days #100 tab Transmission Status: Pending to [facility] Primary Care Physician: Vini Sparks DO [Primary Care Provider] - Test Results: Test results from this visit will be discussed in further detail at your follow- up appointment, if applicable. Please Follow Up With: Physical Therapy When: 01/23/19 Please Follow Up With: Kurt Thornton PA-C When: 01/23/19 @ 10:45 AM
--- NOTE | 2019-01-10 10:30 | CASEMGMT ---
RN CM Face to Face with patient for initial transition planning/care coordination assessment. RN CM introduced self and role at [facility]. Patient sitting in chair, alert and oriented. Patient willing to participate in assessment and is able to answer all questions appropriately. Care providers, pharmacy, and demographics verified. Patient wishes to discharge home, denies need for home health at this time. Patient states she has no further needs or concerns at this time. CM to follow for discharge planning needs that may arise. PCP: [place] Specialists: eric Nieto Pharmacy: [facility] Insurance: [facility] Prescription Benefit: yes Living Will/HPOA: yes, Jesus Gooden LNOK: Living Arrangements: Patient lives with in 2 story home with bed and bath on first floor. 5 steps to enter the home with railing. Transportation: , daughter DME/HHC: Patient has shower chair, raised toilet, grab bars, walker at home. Disposition Plan: Patient to discharge home with family support and follow-up plans in place. Lexus MENDEZ, RN, CM
== END 2019-01-10 12:27 | disposition home or self-care (01) | DRG 483 ==
LOC: ACINP 06:24 → MS3 08:46
PROVIDERS: Anesthesiology; Admitting Provider Specialist; Family Provider Student in an Organized Health Care Education/Training Program; PCP Student in an Organized Health Care Education/Training Program; Referring Provider Specialist; Visit Provider Specialist
PROC: 0RRK00Z Replacement of Left Shoulder Joint with Reverse Ball and Socket Synthetic Substitute, Open Approach (ICD-10-PCS; CPT 23472; principal; 2019-01-09 08:30)
DX: M19.012 Primary osteoarthritis, left shoulder (principal); I10 Essential (primary) hypertension; E07.9 Disorder of thyroid, unspecified; E78.00 Pure hypercholesterolemia, unspecified; F32.9 Major depressive disorder, single episode, unspecified; Z85.3 Personal history of malignant neoplasm of breast; Z79.899 Other long term (current) drug therapy; Z90.12 Acquired absence of left breast and nipple; M75.102 Unspecified rotator cuff tear or rupture of left shoulder, not specified as traumatic; D72.828 Other elevated white blood cell count
CPT/HCPCS: 36415; 73030; 80048; 82962; 84443; 85027; 87077; 87081; 97110; 97166; 97535; 99251; C1776; J7050; J7120; A4216; G0463

== ENCOUNTER 2019-06-10 15:03 | Emergency (ER) | payer MEDICARE, OTHER, SELFPAY ==
[2019-01-09 12:50] VITALS: BMI 31.2
[2019-06-10 15:04] VITALS: BP 199/110; PULSE 63; RESP 16; TEMP 36.4; O2SAT 99; BMI 31.9
--- NOTE | 2019-06-10 16:25 | CT_ITS ---
STUDY: CT BRAIN WITHOUT CONTRAST REASON FOR EXAM: Female, 78 years old. DIZZINESS, HEADACHE RADIATION DOSAGE (If Supplied By Facility): CTDIvol = ( 44.99 ) mGy, DLP = ( 745.49 ) mGycm TECHNIQUE: Transaxial CT imaging of the brain was performed without administration of intravenous contrast material. Individualized dose optimization techniques were used for this CT. COMPARISON: No relevant priors. FINDINGS: Normal soft tissue structures. Normal calvarium. There are central and cortical involutional changes. There are mild deep white matter periventricular hypodensities. Normal basal ganglia and thalami. Normal brainstem. Normal cerebellum. There is no intracranial hemorrhage. There are no findings of an acute ischemic infarction. Normal visualized paranasal sinuses. CT/Brain/Head without Contrast IMPRESSION: Central and cortical involutional changes Mild small vessel old deep white matter ischemia, if there is clinical concern for acute infarct MRI brain follow-up could be performed Electronically Signed: Earnest Ceja, at 17:13 EST Tel , Service support ,
--- NOTE | 2019-06-10 16:28 | ED.DCSUM_ITS ---
- ER Visit Summary Date of Service: 06/10/19 Chief Complaint: Dizziness History of Present Illness: The patient is a 78 F 3 of hypertension high cholesterol. Prior breast cancer with prior left mastectomy. Patient states that she is had dizziness since last Monday about 6 days ago. Said she awoke with it Monday morning. Denies any headache, chest pain, shortness of breath or abdominal pain. Denies any nausea, vomiting or diarrhea. She attributed to vertigo that she had years ago. States she is been taking Dramamine for it and that is getting better. She is never had a stroke or mini stroke. She denies any trouble moving arms or legs. She denies any visual change or problems with her speech. Physical Examination: Female no acute distress. Vital signs are initial blood pressure is 199/110. H EENT exam normal. Pupils are unreactive laser motions are intact. TMs normal. No wax. No facial droop. Tongue midline. Normal speech. Neck nontender. Lungs clear to auscultation. Heart regular rhythm no murmur. Abdomen soft nontender normal bowel sounds no peritoneal signs. Extremities moves all 4. 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 Dorsi plantarflexion intact. Fingertip to nose [id number] all within normal limits. Neurologic exam normal. NIH is 0. Patient stood up walk to the door without any difficulty with her balance. No ataxia. Test Results: CAT scan of the brain without contrast read by the radiologist and reviewed by me shows no acute abnormality. Chronic white matter changes. CBC shows no acute abnormality. White count of 7. Hemoglobin 12. BMP shows no acute abnormality. Normal anion gap and creatinine. Emergency Department Course and Treatment: His exam today is normal. She has a normal neurologic exam with an NIH of 0. Her symptoms seem to be getting better with Dramamine which would be consistent with possible vertigo. Treatment Plan: Repeat exam patient is doing well. We went over her CAT scan lab results. She is improving on the Dramamine she will continue that and follow-up with her doctor. Disposition: Discharge Impression: Acute dizziness of uncertain etiology This note was generated with [employer] software. It may contain incorrect words, spelling, and punctuation that were not noted in review of the chart prior to signing ED Disposition - Plan for ED Patient: Referrals: Vini Sparks DO [Primary Care Provider] -
[2019-06-10 17:02] LABS: Hematocrit 39.5 % (37-47); Hemoglobin 12.7 g/dL (12.0-15.0); Mean Corp Hgb Conc 32.2 g/dL (32-36); Mean Corpuscular Hgb 29.8 pg (27.0-32.0); Mean Corpuscular Volume 92.7 fL (81-99); Platelet Count 249 K/mm3 (150-450); RBC Distribution Width CV 13.6 % (11.6-14.6); RBC Distribution Width SD 46.5 fl (35.1-43.9); Red Blood Count 4.26 M/mm3 (4.2-5.4); White Blood Count 7.9 K/mm3 (4.4-11.0)
[2019-06-10 17:03] VITALS: BP 133/116; PULSE 61; RESP 18; O2SAT 96
[2019-06-10 17:08] LABS: Anion Gap 5 (5-15); BUN 12 mg/dL (7-18); BUN/Creat Ratio 14.7 RATIO (10-20); Calcium,Total 9.4 mg/dL (8.5-10.1); Chloride 106 mmol/L (98-107); Creatinine, Serum 0.82 mg/dL (0.55-1.02); EST Glomerular Filtration Rate 72 mL/min (>60); Est Glom Filt Rate - Afr Amer 87 mL/min (>60); Estimated Creatinine Clearance 42.67 ml/min; Glucose 89 mg/dL (74-106); Potassium 3.9 mmol/L (3.5-5.1); Sodium Level 141 mmol/L (136-145)
--- NOTE | 2019-06-10 17:59 | ED.DEP ---
ED Disposition - Plan for ED Patient: Disposition: Home or Assisted Living Instructions: DIZZINESS, Unk Cause Referrals: Vini Sparks DO [Primary Care Provider] - 3-5 Days if not improving Additional Instructions: Follow up with your doctor if not improving. Return to the ER if you are feeling worse. You may continue to use the Dramamine if you feel it is helping.
[2019-06-10 18:12] VITALS: BP 150/99; PULSE 87; RESP 16; O2SAT 97
== END 2019-06-10 18:12 | disposition home or self-care (01) ==
PROVIDERS: Emergency Provider Emergency Medicine; PCP Student in an Organized Health Care Education/Training Program
DX: R42 Dizziness and giddiness (principal); E78.00 Pure hypercholesterolemia, unspecified; I10 Essential (primary) hypertension; Z85.3 Personal history of malignant neoplasm of breast; Z79.899 Other long term (current) drug therapy
CPT/HCPCS: 70450; 80048; 85027; 99284; A4216

== ENCOUNTER 2020-06-15 10:12 | Outpatient (RCR) | payer MEDICARE, OTHER, SELFPAY | END 2020-06-15 23:59 | LOC: IMMUN 10:12 | PROVIDERS: PCP Student in an Organized Health Care Education/Training Program; Referring Provider Family Medicine; Visit Provider Family Medicine | DX: Z23 Encounter for immunization (principal) | CPT/HCPCS: 0011A; 0012A ==

== ENCOUNTER → 2021-09-24 | Outpatient (CLI) | payer MEDICARE, OTHER, SELFPAY ==
--- NOTE | 2021-09-24 14:28 | CT_ITS ---
EXAM: CT HEAD WITHOUT INTRAVENOUS CONTRAST CLINICAL INDICATION: TIA TECHNIQUE: Multiple axial images were obtained of the head without intravenous contrast. This CT exam was performed using one or more of the following dose reduction techniques: automated exposure control, adjustment of the mA and/or kV according to patient size, and/or use of iterative reconstruction technique. This report was created using [employer] report generation technology. COMPARISON: 06/10/2019 FINDINGS: BRAIN AND EXTRA-AXIAL SPACES: Unremarkable. No intra- or extra-axial hemorrhage. No evidence of acute infarct. No intracranial mass or mass effect. There is preservation of the salas/white matter interface. Posterior fossa structures are unremarkable. Ventricles are appropriate for age. No hydrocephalus. Basal cisterns are patent. BONES/JOINTS: Unremarkable. No discrete lytic or blastic abnormalities. SINUSES: Unremarkable as visualized. Clear. MASTOID AIR CELLS: Unremarkable. Clear. ORBITS: Visualized globes, extraocular muscles, optic nerves and retrobulbar fat appear unremarkable. CT/Brain/Head without Contrast IMPRESSION: Negative head/brain CT without intravenous contrast. There has been no significant change from the reference exam. Electronically Signed: Wilver Anders MD at 14:52 EDT ,
== END | disposition home or self-care (01) ==
LOC: CT 14:26
PROVIDERS: PCP Student in an Organized Health Care Education/Training Program; Referring Provider Nurse Practitioner Family; Visit Provider Nurse Practitioner Family
DX: G45.9 Transient cerebral ischemic attack, unspecified (principal); R53.1 Weakness; R47.01 Aphasia; H53.8 Other visual disturbances
CPT/HCPCS: 70450

== ENCOUNTER → 2025-01-13 | Outpatient (CLI) | payer MEDICARE, SELFPAY ==
--- OUTSIDE RECORDS SUMMARY | 2025-01-10 10:48 | XMS RPT_ITS ---
Author Name Auto Generated Organization OHIP Care Team Providers Care Disciplinary Hearing Officer Name Role Phone VINI HERNANDEZ Primary Care Unavailable AYESHA TRAN Referring Unavailabl e VINI HERNANDEZ Primary Care Unavailable VINI HERNANDEZ Referring Unavailable HERNANDEZVINI Primary Care Unavailable VINI HERNANDEZ Referring Unavailable HERNANDEZVINI Primary Care Unavailable ELISSA NEGRO Referring Unavailable VINI HERNANDEZ Referring Unavailable VINI HERNANDEZ Primary Care Unavailable VINI HERNANDEZ L Attending Unavailable HERNANDEZ, VINI L Primary Care Unavailable SIVA ROMERO Attending Unavailable HERNANDEZ, VINI Tsai Primary Care Unavailable VINI HERNANDEZ Attending Unavailable VINI HERNANDEZ Primary Care Unavailable VINI HERNANDEZ Primary Care Unavailable VINI HERNANDEZ L Referring Unavailable PROBLEMS DATE TYPE CONDITION / CODE ATTENDING STATUS [facility] 11/15/2016 Active 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 01/10/2025 Active Encounter for sc reening mammogram for high-risk patient / Z12.31(ICD-10) NA Active [facility] 10/10/2024 Active Carotid atherosclerosis, bilateral / I65.23(ICD-10) NA Active [facility] 09/16/2024 Active Palpitations / R00.2(ICD-10) NA Active [facility] 08/15/2022 Active Hyperkalemia / E87.5(ICD-10) NA Active [facility] 01/20/2021 Active PALMA (generalized anxiety disorder) / F41.1(ICD-10) VINI HERNANDEZ Active [facility] 08/28/2024 Active Medicare annual wellness visit, subsequent / Z00.00(ICD-10) VINI HERNANDEZ Active [facility] 08/28/2024 Active Other chest pain / R07.89(ICD-10) VINI HERNANDEZ Active [facility] 08/28/2024 Active Melena / K92.1(ICD-10) VINI HERNANDEZ Active [facility] 08/28/2024 Active Chronic pain of both knees / M25.561(ICD-10) VINI HERNANDEZ Active [facility] 08/28/2024 Active Chronic pain of both knees / M25.562(ICD-10) VINI HERNANDEZ Active [facility] 08/28/2024 Active Chronic pain of both knees / G89.29(ICD-10) VINI HERNANDEZ Active [facility] 08/28/2024 Active History of total knee arthroplasty, bilateral / Z96.653(ICD-10) VINI HERNANDEZ Active [facility] 08/15/2022 Active Depression, recu rrent (HCC) / F33.9(ICD-10) VINI HERNANDEZ Active [facility] 08/15/2022 Active Hyperglycemia / R73.9(ICD-10) VINI HERNANDEZ Active [facility] 02/28/2018 Active Fatigue, unspeci fied type / R53.83(ICD-10) IVNI HERNANDEZ Active [facility] 08/29/2017 Active Essential hypert ension, benign / I10(ICD-10) VINI HERNANDEZ Active [facility] 08/24/2016 Active Dysthymia / F34.1(ICD-10) VINI HERNANDEZ Active [facility] 02/26/2024 Active Need for influen za vaccination / Z23(ICD-10) VINI HERNANDEZ Active [facility] 02/26/2024 Active Need for COVID-1 9 vaccine / Z23(ICD-10) VINI HERNANDEZ Active [facility] 08/15/2022 Active Vitamin B12 defi ciency / E53.8(ICD-10) NA Active [facility] 02/28/2018 Active Hypothyroidism, acquired / E03.9(ICD-10) NA Active [facility] 02/28/2018 Active Vitamin D defici ency / E55.9(ICD-10) NA Active [facility] 08/29/2017 Active Dyslipidemia / E78.5(ICD-10) NA Active [facility] PROCEDURES No Procedure Records Found RESULTS PROGRESS Observed: 01/10/2025 11:10 AM Status: COMPLETED Source: [facility] HNO ID: [id number] Author: TAYLER CAMPOS RT(R) Service: ? Author Type: Technologist Type: Progress Notes Filed: 01/10/2025 14:34 Note Text: Radiology Service Progress Note PATIENT NAME: Harjit Bradshaw DATE OF SERVICE: January 10, 2025 TIME: 2:33 PM PATIENT IDENTITY VERIFICATION COMPLETED USING TWO (2) IDENTIFIERS: Name and Date of confirmed by patient verbally. FALL SCREENING: Has the patient had 2 falls in the last year or 1 fall with injury or currently using an Ambulatory Assistive Device (Walker, Cane, Wheelchair, Crutches, etc.)? No PATIENT GENDER DATA: Assigned female at . status: : No status: NO. PATIENT RELEVANT IMPLANT DATA REVIEWED: Not Applicable PATIENT PRESENTS WITH AN IMPLANTABLE OR ATTACHED RAND MAKER: No RADIOLOGY DEPARTMENT: Mammography PERIPHERAL IV DATA: Not applicable SIGNED BY: RT Aleida(R) January 10, 2025 2:33 PM AMBROSE SCREENING W ORACIO Observed: 11:05 AM Status: F Source: [facility] * * *Final Report* * * DATE OF EXAM: Jan 10 2025 11:05AM [id number] - AMBROSE SCREENING W ORACIO / PROCEDURE REASON: multiple diagnoses * * * * Physician Interpretation * * * * RESULT: [place] [address] [place] [id number] #[id number] - AMBROSE SCREENING W ORACIO HISTORY: 84 year-old patient presents for screening. Patient is asymptomatic in both breasts. The patient has the following personal history of breast cancer: breast cancer in the left breast at age 76. COMPARISON STUDIES: The present examination has been compared to prior imaging studies dated 11/21/2019 (mammogram), 11/27/2020 (mammogram), 12/31/2021 (mammogram), 01/05/2023 (mammogram) and 01/08/2024 (mammogram). MAMMOGRAM TECHNIQUE: The study was acquired using full field digital technology and interpreted from soft copy. Digital Breast Tomosynthesis (DBT) images were obtained and used to assist in the interpretation of this examination. MAMMOGRAM FINDINGS: There are scattered areas of fibroglandular density. S/P left mastectomy. No suspicious masses, calcifications or other abnormalities are seen in the right breast. There are no significant interval changes. IMPRESSION: There is no mammographic evidence of malignancy in the right breast. Routine screening mammogram is recommended. Annual mammogram will be due in 1 year. BI-RADS Category 1: Negative RISK: Due to the reported patient's history, the patient's estimated lifetime risk of developing breast cancer cannot be assessed at this time. We encourage all patients to talk with their providers about their risk assessment, further recommendations for managing breast health, and appropriate supplemental screening options if the patient has dense breast tissue. Interpreting Radiologist: Silvia Mac M.D. Electronically signed on: 01/11/2025 Watch Hairspring Assembler: HILDA Transcribe Date/Time: Jan 10 2025 10:50A Dictated by: SILVIA MAC MD This examination was interpreted and the report reviewed and electronically signed by: SILVIA MAC MD on Jan 11 2025 7:46AM EST [id number] CNPN Observed: 01/07/2025 12:00 AM Status: COMPLETED Source: [facility] Telephone (FAMPWS) HARJIT BRADSHAW ([id number]) 1940 F Date Time Provider Department 01/07/25 VINI HERNANDEZ FAMPWS During your visit today, we recorded the following information about you: Ashley King 01/07/2025 2:47 PM Signed Prescription Refill Information The patient has been identified by name and date of : Yes Caregiver verified no other encounters exist for this prescription request: Yes Caregiver confirmed with patient/requestor that no other refills are due, in the near future, with this provider at this time: Yes The last office visit in the department: 08/28/24 Does the patient have a future office visit with this provider/department: Yes 02/28/25 Apixaban (Increased from 2.5 mg tabs to 5 mg tabs) Ashley King January 07, 2025 2:44 PM Ayesha Tran APRN.MARYANA 01/08/2025 9:58 AM Signed Refilled 2.5 mg BID. Please clarify with patient the request for an increase. Thank you, Ayesha Tran APRN.MARYANA The following approved medication requests have been transmitted electronically. Requested Prescriptions Signed Prescriptions Disp Refills apixaban (ELIQUIS) 2.5 mg tab(s) 60 tablet 3 Sig: Take 1 tablet by mouth two times a day. Authorizing Provider: AYESHA TRAN APRN.Talia Dupont RN 01/08/2025 10:46 AM Signed Pt called and is notified of providers message. Pt voices understanding. She states Sarah PEARCE from [facility] told her she needed to take 5 mg before her Stress test on Monday. I asked her for how long she wanted her on that dose, and the Pt didn't know. I told her she either needs to send it I to the pharmacy for her or get a hold of the Pt's PCP office and let them know. The Pt said she will contact their office and have the get in contact with us. SYLVIE Wheeler Alyson Taylor, APRN.MARYANA 01/08/2025 10:50 AM Signed Agree with below. Needs instruction and rx from cardiology. Thank you, Ayseha Tran APRN.MARYANA Allergies As of Date: 01/07/2025 Noted Allergy Reaction MORPHINE 03/03/2014 1 - Mental Status Change 5 - Intolerance 8 - GI Upset Date Reviewed: 08/28/2024 Reviewed by: Randy Aguilera LPN - Fully Assessed Reason for Visit: Refill Request [94] Visit Diagnoses:Palpitations [R00.2] Atrial fibrillation, unspecified type (HCC) [I48.91] Order(s):apixaban (ELIQUIS) 2.5 mg tab(s)Take 1 tablet by mouth two times a day.Disp: 60 tabletRfl: 3 Prescriptions as of 01/08/2025 - apixaban (ELIQUIS) 2.5 mg tab(s) Take 1 tablet by mouth two times a day. - pravastatin (PRAVACHOL) 40 mg tablet Take 1 tablet by mouth daily at bedtime. - metoprolol tartrate, short acting, (LOPRESSOR) 50 mg tablet Take 1 tablet by mouth two times a day. - levothyroxine (SYNTHROID) 112 mcg tablet Take 1 tablet by mouth daily Take on empty stomach. For thyroid. - amLODIPine (NORVASC) 5 mg tablet Take 1 tablet by mouth once daily. - sertraline (ZOLOFT) 100 mg tablet Take 2 tablets by mouth once daily. - losartan (COZAAR) 50 mg tablet Take 1 tablet by mouth once daily. - Blood Pressure Test Kit-Large 1 Each once daily. - vitamin b complex tab Take 1 tablet by mouth once daily. - calcium carbonate/vitamin D3 (CALCIUM 600 + D,3, ORAL) Take 1 tablet by mouth once daily. Meds Comments as of 03/03/2011: Problem List As Of Date 01/07/2025 Noted Resolved Hypothyroidism [E03.9] Hyperlipidemia [E78.5] BONE AND CARTILAGE DIS NOS [M89.9, M94.9] OSTEOARTHROS NOS-OTHER SITE [M19.90] BPPV (benign paroxysmal positional vertigo), un*02/15/2007 Malignant neoplasm of central portion of left f*11/27/2015 Unspecified hypothyroidism [E03.9] Other and unspecified hyperlipidemia [E78.5] Bilateral malignant neoplasm of central portion* Microcalcifications of the breast [R92.0] 11/24/2015 Osteopenia of neck of femur [M85.859] 01/2022 Dysthymia [F34.1] 08/24/2016 Malignant neoplasm of central portion of left b*11/15/2016 Dyslipidemia [E78.5] 08/29/2017 HYPERTENSION BENIGN [I10] 08/29/2017 Obesity, Class I, BMI 30-34.9 [E66.811] 08/29/2017 Vitamin D deficiency [E55.9] 02/28/2018 Hypothyroidism, acquired [E03.9] 02/28/2018 Fatigue [R53.83] 02/28/2018 Hypertensive crisis [I16.9] 06/12/2019 Dizziness [R42] 06/12/2019 Vertigo [R42] 06/12/2019 Uncomplicated alcohol dependence (HCC) [F10.20] 01/20/2021 Tremor [R25.1] 01/20/2021 PALMA (generalized anxiety disorder) [F41.1] 01/20/2021 Osteopenia, senile [M85.80] 12/15/2021 Anxious mood [F41.9] 12/15/2021 Hyperkalemia [E87.5] 08/15/2022 Vitamin B12 deficiency [E53.8] 08/15/2022 Hyperglycemia [R73.9] 08/15/2022 Personal history of alcoholism (HCC) [F10.21] 08/15/2022 Depression, recurrent (HCC) [F33.9] 08/15/2022 Prescriptions ordered this encounter Disp Refills Start End APIXABAN 2.5 MG TABLET 60 t* 3 01/08/2025 Route: PO Sig: Take 1 tablet by mouth two times a day. Medications Discontinued During This Encounter Prescriptions - apixaban (ELIQUIS) 2.5 mg tab(s) (Discontinued) Take 1 tablet by mouth two times a day. Encounter Status:Closed by JODIE FLORES on 01/08/25 PROGRESS Observed: 12/17/2024 3:08 PM Status: COMPLETED Source: [facility] ID: [id number] Author: LIANE WHITING MA Service: ? Author Type: Sales Producer Type: Progress Notes Filed: 12/17/2024 15:08 Note Text: POPULATION HEALTH NAVIGATION OUTREACH Action/FYI HCC gap closure added to upcoming appointment notes. No other Hm due. Reason for Outreach Care Gap/HCC or Scheduling Wellness Visits Care Gaps due: N/A Patient Contacted: Unable or unnecessary to reach patient: HCC related Updated appointment notes Navigation Signature: Liane Whiting MA December 17, 2024 3:08 PM MARYANATOMARZENA Observed: 12/17/2024 12:00 AM Status: COMPLETED Source: [facility] Patient Outreach (NETNAV) HARJIT BRADSHAW ([id number]) 1940 F Date Time Provider Department 12/17/24 LIANE WHITING During your visit today, we recorded the following information about you: Liane Whiting MA 12/17/2024 3:08 PM Signed POPULATION HEALTH NAVIGATION OUTREACH Action/FYI HCC gap closure added to upcoming appointment notes. No other Hm due. Reason for Outreach Care Gap/HCC or Scheduling Wellness Visits Care Gaps due: N/A Patient Contacted: Unable or unnecessary to reach patient: HCC related Updated appointment notes Navigation Signature: Liane Whiting MA December 17, 2024 3:08 PM Allergies As of Date: 12/17/2024 Noted Allergy Reaction MORPHINE 03/03/2014 1 - Mental Status Change 5 - Intolerance 8 - GI Upset Date Reviewed: 08/28/2024 Reviewed by: Randy Aguilera LPN - Fully Assessed Reason for Visit: Population Health Navigation Outreach [3910] Cmt: Nehal/Jeff/LILI Prescriptions as of 12/17/2024 - pravastatin (PRAVACHOL) 40 mg tablet Take 1 tablet by mouth daily at bedtime. - metoprolol tartrate, short acting, (LOPRESSOR) 50 mg tablet Take 1 tablet by mouth two times a day. - levothyroxine (SYNTHROID) 112 mcg tablet Take 1 tablet by mouth daily Take on empty stomach. For thyroid. - amLODIPine (NORVASC) 5 mg tablet Take 1 tablet by mouth once daily. - sertraline (ZOLOFT) 100 mg tablet Take 2 tablets by mouth once daily. - apixaban (ELIQUIS) 2.5 mg tab(s) Take 1 tablet by mouth two times a day. - losartan (COZAAR) 50 mg tablet Take 1 tablet by mouth once daily. - Blood Pressure Test Kit-Large 1 Each once daily. - vitamin b complex tab Take 1 tablet by mouth once daily. - calcium carbonate/vitamin D3 (CALCIUM 600 + D,3, ORAL) Take 1 tablet by mouth once daily. Meds Comments as of 03/03/2011: Problem List As Of Date 12/17/2024 Noted Resolved Hypothyroidism [E03.9] Hyperlipidemia [E78.5] BONE AND CARTILAGE DIS NOS [M89.9, M94.9] OSTEOARTHROS NOS-OTHER SITE [M19.90] BPPV (benign paroxysmal positional vertigo), un*02/15/2007 Malignant neoplasm of central portion of left f*11/27/2015 Unspecified hypothyroidism [E03.9] Other and unspecified hyperlipidemia [E78.5] Bilateral malignant neoplasm of central portion* Microcalcifications of the breast [R92.0] 11/24/2015 Osteopenia of neck of femur [M85.859] 01/2022 Dysthymia [F34.1] 08/24/2016 Malignant neoplasm of central portion of left b*11/15/2016 Dyslipidemia [E78.5] 08/29/2017 HYPERTENSION BENIGN [I10] 08/29/2017 Obesity, Class I, BMI 30-34.9 [E66.811] 08/29/2017 Vitamin D deficiency [E55.9] 02/28/2018 Hypothyroidism, acquired [E03.9] 02/28/2018 Fatigue [R53.83] 02/28/2018 Hypertensive crisis [I16.9] 06/12/2019 Dizziness [R42] 06/12/2019 Vertigo [R42] 06/12/2019 Uncomplicated alcohol dependence (HCC) [F10.20] 01/20/2021 Tremor [R25.1] 01/20/2021 PALMA (generalized anxiety disorder) [F41.1] 01/20/2021 Osteopenia, senile [M85.80] 12/15/2021 Anxious mood [F41.9] 12/15/2021 Hyperkalemia [E87.5] 08/15/2022 Vitamin B12 deficiency [E53.8] 08/15/2022 Hyperglycemia [R73.9] 08/15/2022 Personal history of alcoholism (HCC) [F10.21] 08/15/2022 Depression, recurrent (HCC) [F33.9] 08/15/2022 Encounter Status:Closed by LIANE WHITING on 12/17/24 CAROTID ARTERIES [facility] Observed: 10/10/2024 11:31 AM Status: F Source: [facility] Non-Invasive [facility] Carotid Duplex Bilateral/Complete Date of service/time: 10/10/2024 11:31:16 AM Name: MRS. HARJIT BRADSHAW Date of : 1940 Age: 84 years Gender: F Clinical Indication Follow-up study on a patient with known carotid disease. TECHNIQUE -------- A carotid duplex ultrasound examination was performed, including grayscale imaging and color Doppler and spectral Doppler examination of the below mentioned arteries. FINDINGS -------- RIGHT SIDE Common carotid artery: Origin: PSV: 103 cm/s. EDV: 26 cm/s. Proximal: PSV: 70 cm/s. EDV: 13 cm/s. Mid: PSV: 62 cm/s. EDV: 18 cm/s. Distal: PSV: 66 cm/s. EDV: 24 cm/s. Internal carotid artery: Origin: PSV: 48 cm/s. EDV: 14 cm/s. Proximal: PSV: 47 cm/s. EDV: 12 cm/s. Mid: PSV: 61 cm/s. EDV: 26 cm/s. Distal: PSV: 75 cm/s. EDV: 25 cm/s. ICA/CCA Ratio: 0.7 External carotid artery: Proximal: PSV: 68 cm/s. EDV: 8 cm/s. Subclavian artery: Proximal: PSV: 85 cm/s. EDV: 0 cm/s. Innominate artery: PSV: 70 cm/s. EDV: 0 cm/s. Vertebral artery: PSV: 35 cm/s. EDV: 5 cm/s. LEFT SIDE Common carotid artery: Proximal: PSV: 85 cm/s. EDV: 19 cm/s. Mid: PSV: 59 cm/s. EDV: 17 cm/s. Distal: PSV: 65 cm/s. EDV: 10 cm/s. Internal carotid artery: Origin: PSV: 39 cm/s. EDV: 0 cm/s. Proximal: PSV: 46 cm/s. EDV: 18 cm/s. Mid: PSV: 52 cm/s. EDV: 20 cm/s. Distal: PSV: 54 cm/s. EDV: 19 cm/s. ICA/CCA Ratio: 0.7 External carotid artery: Proximal: PSV: 71 cm/s. EDV: 10 cm/s. Subclavian artery: Proximal: PSV: 92 cm/s. EDV: 0 cm/s. Vertebral artery: PSV: 46 cm/s. EDV: 13 cm/s. IMPRESSION Please note: the new carotid interpretation criteria are used as recommended by [facility]. When compared with the prior study, of 09/29/2021 no significant change is noted on the right side and no significant change is noted on the left side. RIGHT SIDE Common carotid artery: Patent. Internal carotid artery: Normal study. External carotid artery: Patent. Vertebral artery: Patent and antegrade flow noted. Innominate artery: Patent. Subclavian artery: Patent. LEFT SIDE Common carotid artery: Patent. Internal carotid artery: Normal study. External carotid artery: Patent. Vertebral artery: Patent and antegrade flow noted. Subclavian artery: Patent. Technologist: Tayler Pritchett T Ordering physician: VINI HERNANDEZ Interpreting physician: Riley Bernstein MD, RPVI Final CC [employer] [facility] Image : [id number] See Link below for Image CNPN Observed: 09/26/2024 12:00 AM Status: COMPLETED [facility]: [facility] ([id number]) 1940 F Date Time Provider Department 09/26/24 VINI HERNANDEZ During your visit today, we recorded the following information about you: Yaa Jordan RN 09/26/2024 3:30 PM Signed Patient states she was ordered Eliquis but it is too costly for her to continue. Asking for provider to order an alternative medication that will cost less. Please call patient with reply. SYLVIE Manjarrez Jordan L, DO 09/27/2024 8:37 AM Signed Has she seen the Lending Consultant yet? This is needed DO Julian Díaz Sherrie, RN 09/27/2024 9:07 AM Signed Attempted to reach patient using two phone numbers, no answer. Unable to leave messages. Please try contacting patient again. SYLVIE Manjarrez Krystle, RN 09/27/2024 9:14 AM Signed Patient returns call and provider message below reviewed. Patient is scheduled to see cardiology on October 15, 2024. Patient reports that her phone is not currently working but she can see when we call so if we are not able to leave a message she will still call back. Continue to use the home phone number. SYLVIE Le Jordan L, DO 09/27/2024 9:50 AM Signed Does she have enough Eliquis to get her to this appt with Lending Consultant? DO Arabella Díaz Susan LPN 09/27/2024 10:18 AM Signed Message left to return call. Jodie Flores LPN 10/04/2024 12:46 PM Signed Tried to call pt muliple times phone rings it appears someone picks up then hangs up . Not sure what is happening. Will try again in a bit. Allergies As of Date: 09/26/2024 Noted Allergy Reaction MORPHINE 03/03/2014 1 - Mental Status Change 5 - Intolerance 8 - GI Upset Date Reviewed: 08/28/2024 Reviewed by: Randy Aguilera LPN - Fully Assessed Reason for Visit: Medication Request [138] Prescriptions as of 10/17/2024 - amLODIPine (NORVASC) 5 mg tablet Take 1 tablet by mouth once daily. - metoprolol tartrate, short acting, (LOPRESSOR) 50 mg tablet Take 1 tablet by mouth two times a day. - sertraline (ZOLOFT) 100 mg tablet Take 2 tablets by mouth once daily. - apixaban (ELIQUIS) 2.5 mg tab(s) Take 1 tablet by mouth two times a day. - levothyroxine (SYNTHROID) 112 mcg tablet Take 1 tablet by mouth daily Take on empty stomach. For thyroid. - pravastatin (PRAVACHOL) 40 mg tablet Take 1 tablet by mouth daily at bedtime. - losartan (COZAAR) 50 mg tablet Take 1 tablet by mouth once daily. - Blood Pressure Test Kit-Large 1 Each once daily. - vitamin b complex tab Take 1 tablet by mouth once daily. - calcium carbonate/vitamin D3 (CALCIUM 600 + D,3, ORAL) Take 1 tablet by mouth once daily. Meds Comments as of 03/03/2011: Problem List As Of Date 09/26/2024 Noted Resolved Hypothyroidism [E03.9] Hyperlipidemia [E78.5] BONE AND CARTILAGE DIS NOS [M89.9, M94.9] OSTEOARTHROS NOS-OTHER SITE [M19.90] BPPV (benign paroxysmal positional vertigo), un*02/15/2007 Malignant neoplasm of central portion of left f*11/27/2015 Unspecified hypothyroidism [E03.9] Other and unspecified hyperlipidemia [E78.5] Bilateral malignant neoplasm of central portion* Microcalcifications of the breast [R92.0] 11/24/2015 Osteopenia of neck of femur [M85.859] 01/2022 Dysthymia [F34.1] 08/24/2016 Malignant neoplasm of central portion of left b*11/15/2016 Dyslipidemia [E78.5] 08/29/2017 HYPERTENSION BENIGN [I10] 08/29/2017 Obesity, Class I, BMI 30-34.9 [E66.811] 08/29/2017 Vitamin D deficiency [E55.9] 02/28/2018 Hypothyroidism, acquired [E03.9] 02/28/2018 Fatigue [R53.83] 02/28/2018 Hypertensive crisis [I16.9] 06/12/2019 Dizziness [R42] 06/12/2019 Vertigo [R42] 06/12/2019 Uncomplicated alcohol dependence (HCC) [F10.20] 01/20/2021 Tremor [R25.1] 01/20/2021 PALMA (generalized anxiety disorder) [F41.1] 01/20/2021 Osteopenia, senile [M85.80] 12/15/2021 Anxious mood [F41.9] 12/15/2021 Hyperkalemia [E87.5] 08/15/2022 Vitamin B12 deficiency [E53.8] 08/15/2022 Hyperglycemia [R73.9] 08/15/2022 Personal history of alcoholism (HCC) [F10.21] 08/15/2022 Depression, recurrent (HCC) [F33.9] 08/15/2022 Encounter Status:Closed by YAA JORDAN on 10/17/24 SID Observed: 09/17/2024 12:00 AM Status: COMPLETED Source: [facility] HARJIT [facility]AD[facility]W ([id number]) 1940 F Date Time Provider Department 09/17/[address] [facility] During your visit today, we recorded the following information about you: Vini Hernandez DO 09/17/2024 7:40 AM Signed Please inform patient that her ECHO shows mild tricuspid valve and mitral valve regurgitation only. Otherwise her ECHO is normal. Continue good exercise and BLOOD PRESSURE control Recommend repeat echo in 2-3 years DO Arabella Díaz Susan LPN 09/17/2024 1:08 PM Signed Pt. informed letter sent. Allergies As of Date: 09/17/2024 Noted Allergy Reaction MORPHINE 03/03/2014 1 - Mental Status Change 5 - Intolerance 8 - GI Upset Date Reviewed: 08/28/2024 Reviewed by: Randy Aguilera LPN - Fully Assessed Prescriptions as of 09/17/2024 - metoprolol tartrate, short acting, (LOPRESSOR) 50 mg tablet Take 1 tablet by mouth two times a day. - sertraline (ZOLOFT) 100 mg tablet Take 2 tablets by mouth once daily. - apixaban (ELIQUIS) 2.5 mg tab(s) Take 1 tablet by mouth two times a day. - amLODIPine (NORVASC) 5 mg tablet Take 1 tablet by mouth once daily. - levothyroxine (SYNTHROID) 112 mcg tablet Take 1 tablet by mouth daily Take on empty stomach. For thyroid. - pravastatin (PRAVACHOL) 40 mg tablet Take 1 tablet by mouth daily at bedtime. - losartan (COZAAR) 50 mg tablet Take 1 tablet by mouth once daily. - Blood Pressure Test Kit-Large 1 Each once daily. - vitamin b complex tab Take 1 tablet by mouth once daily. - calcium carbonate/vitamin D3 (CALCIUM 600 + D,3, ORAL) Take 1 tablet by mouth once daily. Meds Comments as of 03/03/2011: Problem List As Of Date 09/17/2024 Noted Resolved Hypothyroidism [E03.9] Hyperlipidemia [E78.5] BONE AND CARTILAGE DIS NOS [M89.9, M94.9] OSTEOARTHROS NOS-OTHER SITE [M19.90] BPPV (benign paroxysmal positional vertigo), un*02/15/2007 Malignant neoplasm of central portion of left f*11/27/2015 Unspecified hypothyroidism [E03.9] Other and unspecified hyperlipidemia [E78.5] Bilateral malignant neoplasm of central portion* Microcalcifications of the breast [R92.0] 11/24/2015 Osteopenia of neck of femur [M85.859] 01/2022 Dysthymia [F34.1] 08/24/2016 Malignant neoplasm of central portion of left b*11/15/2016 Dyslipidemia [E78.5] 08/29/2017 HYPERTENSION BENIGN [I10] 08/29/2017 Obesity, Class I, BMI 30-34.9 [E66.811] 08/29/2017 Vitamin D deficiency [E55.9] 02/28/2018 Hypothyroidism, acquired [E03.9] 02/28/2018 Fatigue [R53.83] 02/28/2018 Hypertensive crisis [I16.9] 06/12/2019 Dizziness [R42] 06/12/2019 Vertigo [R42] 06/12/2019 Uncomplicated alcohol dependence (HCC) [F10.20] 01/20/2021 Tremor [R25.1] 01/20/2021 PALMA (generalized anxiety disorder) [F41.1] 01/20/2021 Osteopenia, senile [M85.80] 12/15/2021 Anxious mood [F41.9] 12/15/2021 Hyperkalemia [E87.5] 08/15/2022 Vitamin B12 deficiency [E53.8] 08/15/2022 Hyperglycemia [R73.9] 08/15/2022 Personal history of alcoholism (HCC) [F10.21] 08/15/2022 Depression, recurrent (HCC) [F33.9] 08/15/2022 Letter Text Encounter Status:Closed by RANDY AGUILERA LPN on 09/17/24 ECHO Observed: 09/16/2024 1:00 PM Status: F Source: [facility] Echocardiography Report: Tra nsthoracic Echo [facility] Date of service: 09/16/2024 1:00:21 PM [employer] Ordering physician: VINI HERNANDEZ Exam indication: Chest Pain Technologist: Ailin Lilly [facility] Interpreting physician: Dale Mercer MD PATIENT: Name: HARJIT BRADSHAW : 1940 Age: 84 years Gender: F History of hypertension, dyslipidemia and arrhythmia. Primary rhythm: atrial fib. Height: 156.00 cm BSA: 1.80 m Weight: 74.84 kg BMI: 30.8 kg/m Heart rate 95 bpm Blood pressure 116/73 mmHg Technically difficult exam due to body habitus and left mastectomy. Color Doppler was utilized to interrogate the cardiac valves assessed and spectral Doppler was utilized to determine the flow velocities and pressure gradients reported in this exam. MEASUREMENTS: Value Indexed Normal Max aortic dimension 3.1 cm Ao < 3.8 Left atrial volume 65 ml (4ch A-L) 36 ml/m Jess <= 34 LV ID (diastole) 4.0 cm (2D) 2.23 cm/m LV ID (systole) 3.0 cm (2D) 1.67 cm/m IVS, leaflet tips 1.1 cm (2D) Posterior wall thickness 1.0 cm (2D) Left ventricular mass 134 g (2D) 75 g/m LV stroke volume 31 ml (2D 4-ch.) LV end diastolic volume 55 ml (2D 4-ch.) 30.5 ml/m 29<=EDVi<62 LV end systolic volume 24 ml (2D 4-ch.) 13.6 ml/m Ejection Fraction 56 % (2D 4-ch.) EF > 54 FINDINGS: LEFT VENTRICLE The left ventricle is normal in size. Left ventricular systolic function is normal. Left ventricular diastolic function was not evaluated due to AF. Wall Motion: All scored segments are normal. RIGHT VENTRICLE The right ventricle is normal in size. Right ventricular systolic function is normal. RV systolic tissue Doppler velocity is 11.0 cm/s. Estimated right ventricular systolic pressure is 39 mmHg consistent with mild pulmonary hypertension. Estimated right atrial pressure is 8 mmHg based on IVC assessment. LEFT ATRIUM The left atrial cavity is mildly dilated. Pulmonary Veins: The pulmonary venous pattern showed blunted systolic flow. RIGHT ATRIUM The right atrial cavity is normal in size. Inferior Vena Cava: The inferior vena cava appears normal measuring 1.6 cm. The vessel decreases less than 50 percent with inspiration. MITRAL VALVE The mitral valve leaflets are structurally normal. There is mild mitral annular calcification observed posterior. There is mild (1+) mitral valve regurgitation. TRICUSPID VALVE The tricuspid valve leaflets are structurally normal. There is mild (1+) tricuspid valve regurgitation. AORTIC VALVE The aortic valve cusps are structurally normal. There is no aortic valve stenosis. There is no aortic valve regurgitation. Tricuspid aortic valve. The peak gradient is 9 mmHg (peak velocity = 148.9 cm/s). PULMONIC VALVE The pulmonic valve cusps are structurally normal. There is no pulmonic valve stenosis. There is trace pulmonic valve regurgitation. AORTA The visualized aorta is normal in size. Measurements - Mid ascending aorta 3.1 cm. INTERATRIAL SEPTUM There is no evidence of intracardiac shunting as detected by Doppler. PERICARDIUM There is no pericardial effusion. There is an epicardial fat pad. CONCLUSIONS: - Technically difficult exam due to body habitus and left mastectomy. - Exam indication: Chest Pain - The left ventricle is normal in size. Left ventricular systolic function is normal. EF = 56 5% (2D 4-ch.). Left ventricular diastolic function was not evaluated due to AF. - The right ventricle is normal in size. Right ventricular systolic function is normal. - Mild (1+) mitral valve regurgitation. - Mild (1+) tricuspid valve regurgitation. - The patient has not had a prior CC echocardiographic exam for comparison. * * * Final * * * CC [employer] [facility] Image : [id number] Collected: 10:34 AM Status: F Source: [facility] Order Comment: Specimen Type : BLOOD SPECIMEN Ordering Facility: [facility] Address: [address] [place] [address] TYPE CODE TESTS RESULT OUT OF RANGE REFERENCE UNITS LAB 2823-3(LOINC) Potassium SerPl-sCnc 5.0 3.7-5.1 mmol/L Performed By: #### K1 #### [facility] CLIA [id number] [address] [place] [address] [place] [address] [place] CNPN Observed: 09/04/2024 12:00 AM Status: COMPLETED Source: [facility] Telephone ([employer]) HARJIT BRADSHAW ([id number]) 1940 F Date Time Provider Department 09/04/24 VINI HERNANDEZ FAMPWS During your visit today, we recorded the following information about you: Purnima Galvez LPN 09/04/2024 2:55 PM Signed Patient calling said pharmacy told her for a month of Eliquis is 460 dollars and she can not afford that. She said her is on the medication and has to pay that much for 90 days rx. Patient is asking if she could be put on something else that is cheaper? Patient uses [facility] for her pharmacy. Please advise Vini Hernandez DO 09/07/2024 7:29 AM Signed Please call and clarify if she has seen the Lending Consultant yet? She was just recently diagnosed with atrial fibrillation on 08/28 in office DO Kiah Díaz Linda M, LPN 09/07/2024 10:05 AM Signed Spoke wit pt states has not yet seen training and development professional. Vini Hernandez DO 09/07/2024 11:17 AM Signed I need her to get an appt VIDHI, I don;t know if she is actually a candidate, until getting their opinion, to change to Warfarin instead of Eliquis DO Sade Díaz Jazzmin, MA 09/10/2024 10:49 AM Signed Pt needs to see cardiology VIDHI! Please schedule LOULOU Seymour Stephanie 09/12/2024 8:52 AM Signed Spoke with patient and she does not want to leave [place] for her cardiology appointment. First available at [facility] isn't until March 2025. Please advise if provider is ok with patient going to [facility]. Ayesha Tran APRN.MARYANA 09/12/2024 1:16 PM Signed Ok with going with [facility]. Please assistance in scheduling/ provide her the number. Thank you, GODWIN Beth Stephanie 09/13/2024 3:45 PM Signed Order faxed to [facility] with the request that they reach out to the patient to schedule. Allergies As of Date: 09/04/2024 Noted Allergy Reaction MORPHINE 03/03/2014 1 - Mental Status Change 5 - Intolerance 8 - GI Upset Date Reviewed: 08/28/2024 Reviewed by: Liliana-Green, Randy JAR FILLER - Fully Assessed Reason for Visit: Medication Problem [65] cost of Eliquis [Other] Prescriptions as of 09/13/2024 - metoprolol tartrate, short acting, (LOPRESSOR) 50 mg tablet Take 1 tablet by mouth two times a day. - sertraline (ZOLOFT) 100 mg tablet Take 2 tablets by mouth once daily. - apixaban (ELIQUIS) 2.5 mg tab(s) Take 1 tablet by mouth two times a day. - amLODIPine (NORVASC) 5 mg tablet Take 1 tablet by mouth once daily. - levothyroxine (SYNTHROID) 112 mcg tablet Take 1 tablet by mouth daily Take on empty stomach. For thyroid. - pravastatin (PRAVACHOL) 40 mg tablet Take 1 tablet by mouth daily at bedtime. - losartan (COZAAR) 50 mg tablet Take 1 tablet by mouth once daily. - Blood Pressure Test Kit-Large 1 Each once daily. - vitamin b complex tab Take 1 tablet by mouth once daily. - calcium carbonate/vitamin D3 (CALCIUM 600 + D,3, ORAL) Take 1 tablet by mouth once daily. Meds Comments as of 03/03/2011: Problem List As Of Date 09/04/2024 Noted Resolved Hypothyroidism [E03.9] Hyperlipidemia [E78.5] BONE AND CARTILAGE DIS NOS [M89.9, M94.9] OSTEOARTHROS NOS-OTHER SITE [M19.90] BPPV (benign paroxysmal positional vertigo), un*02/15/2007 Malignant neoplasm of central portion of left f*11/27/2015 Unspecified hypothyroidism [E03.9] Other and unspecified hyperlipidemia [E78.5] Bilateral malignant neoplasm of central portion* Microcalcifications of the breast [R92.0] 11/24/2015 Osteopenia of neck of femur [M85.859] 01/2022 Dysthymia [F34.1] 08/24/2016 Malignant neoplasm of central portion of left b*11/15/2016 Dyslipidemia [E78.5] 08/29/2017 HYPERTENSION BENIGN [I10] 08/29/2017 Obesity, Class I, BMI 30-34.9 [E66.811] 08/29/2017 Vitamin D deficiency [E55.9] 02/28/2018 Hypothyroidism, acquired [E03.9] 02/28/2018 Fatigue [R53.83] 02/28/2018 Hypertensive crisis [I16.9] 06/12/2019 Dizziness [R42] 06/12/2019 Vertigo [R42] 06/12/2019 Uncomplicated alcohol dependence (HCC) [F10.20] 01/20/2021 Tremor [R25.1] 01/20/2021 PALMA (generalized anxiety disorder) [F41.1] 01/20/2021 Osteopenia, senile [M85.80] 12/15/2021 Anxious mood [F41.9] 12/15/2021 Hyperkalemia [E87.5] 08/15/2022 Vitamin B12 deficiency [E53.8] 08/15/2022 Hyperglycemia [R73.9] 08/15/2022 Personal history of alcoholism (HCC) [F10.21] 08/15/2022 Depression, recurrent (HCC) [F33.9] 08/15/2022 Encounter Status:Closed by AILIN ALANIS on 09/13/24 HEMOCCULT STL QL IA Collected: 08/31/2024 9:[address] atus: F Source: [facility] Order Comment: Specimen Type : STOOL SPECIMEN Ordering Facility: [facility] Address: [address] [place] [address] TYPE CODE TESTS RESULT OUT OF RANGE REFERENCE UNITS LAB 73725-8(LOINC) Hemoccult Stl Ql IA Negative Negative Performed By: #### 95543-1 # ### [facility] CLIA [id number] [address] [place] [address] [place] DEPRECATED HGB A1C BLD Collected: 08/29 11:26 AM Status: F Source: [facility] Order Comment: Specimen Type : BLOOD SPECIMEN Ordering Facility: [facility] Address: [address] [place] [address] TYPE CODE TESTS RESULT OUT OF RANGE REFERENCE UNITS LAB 4548-4(LOINC) HbA1c MFr Bld 5.8 High 4.3-5.6 % Result Comment: [place] [employer] betes Association guidelines indicate that patients with HgbA1c in the range 5.7-6.4% are at increased risk for development of diabetes, and intervention by lifestyle modification may be beneficial. HgbA1c greater or equal to 6.5% is considered diagnostic of diabetes. LAB 58954-3(LOINC) Est. average glucose Bld gHb Est-mCnc 120 mg/dL Result Comment: eAG: (Estima otis average glucose) is a calculated value from HgbA1c and is credit resolution representative of the average blood glucose level in the last 2-3 month period. Performed By: #### 81366-0 # ### [facility] CLIA [id number] [address] [place] [address] OF [place] VIT B12 SERPL-MCNC Collected: 5 11:26 AM Status: F Source: [facility] Comment: Specimen Type : BLOOD SPECIMEN Ordering Facility: [facility] Address: [address] [place] [address] TYPE CODE TESTS RESULT OUT OF RANGE REFERENCE UNITS LAB 2132-9([facility]) Vit B12 SerPl-mCnc 925 000-8076 pg/mL Performed By: #### 2132-9 ## ## [facility] CLIA [id number] [address] [place] [address] [place] CBC PNL BLD AUTO Collected: 5 11:26 AM Status: F Source: [facility] Comment: Specimen Type : BLOOD SPECIMEN Ordering Facility: [facility] Address: [address] [place] [address] TYPE CODE TESTS RESULT OUT OF RANGE REFERENCE UNITS LAB 6690-2(LOINC) WBC # Bld Auto 9.35 3.70-11.00 k/uL LAB 789-8(LOINC) RBC # Bld Auto 4.39 3.90-5.20 m/uL LAB 718-7(LOINC) Hgb Bld-mCnc 12.9 11.5-15.5 g/dL LAB 4544-3(LOINC) Hct VFr Bld Auto 41.0 36.0-46.0 % LAB 787-2(LOINC) MCV RBC Auto 93.4 80.0-100.0 fL LAB 785-6(LOINC) MCH RBC Qn Auto 29.4 26.0-34.0 pg LAB 786-4([facility]) MCHC RBC Auto-mCnc 31.5 30.5-36.0 g/dL LAB 12016-3([facility]) RDW RBC-Rto 15.4 High 11.5-15.0 % LAB 777-3([facility]) Platelet # Bld Auto 268 150-400 k/uL LAB 27916-1([facility]) PMV Bld Auto 11.5 9.0-12.7 fL LAB 771-6([facility]) nRBC # Bld Auto <0.01 <0.01 k/uL Performed By: #### 90646-4 # ### [facility] CLIA [id number] [address] [place] [address] [place] COMP METAB 2000 PNL SERPL Collected: 11:26 AM Status: F Source: [facility] Order Comment: Specimen Type : BLOOD SPECIMEN Ordering Facility: [facility] Address: [address] [place] [address] TYPE CODE TESTS RESULT OUT OF RANGE REFERENCE UNITS LAB 2885-2([facility]) Prot SerPl-mCnc 7.4 6.3-8.0 g/dL LAB 1751-7([facility]) Albumin SerPl-mCnc 4.5 3.9-4.9 g/dL LAB 60942-1([facility]) Calcium SerPl-mCnc 9.6 8.5-10.2 mg/dL LAB 1975-2([facility]) Bilirub SerPl-mCnc 0.5 0.2-1.3 mg/dL LAB 6768-6([facility]) ALP SerPl-cCnc 119 34-123 U/L LAB 1920-8(INC) AST SerPl-cCnc 31 13-35 U/L LAB 1742-6(INC) ALT SerPl-cCnc 25 7-38 U/L LAB 2345-7([facility]) Glucose SerPl-mCnc 95 74-99 mg/dL Result Comment: The [place] Diabetes Association (ADA) provides guidance for cutoff values for fasting glucose and random glucose. The ADA defines fasting as no caloric intake for at least 8 hours. Fasting plasma glucose results between 100 to 125 mg/dL indicate increased risk for diabetes (prediabetes). Fasting plasma glucose results greater than or equal to 126 mg/dL meet the criteria for diagnosis of diabetes. In the absence of unequivocal hyperglycemia, results should be confirmed by repeat testing. In a patient with classic symptoms of hyperglycemia or hyperglycemic crisis, random plasma glucose results greater than or equal to 200 mg/dL meet the criteria for diagnosis of diabetes. Reference: Standards of Medical Care in Diabetes 2016, [place] Diabetes Association. Diabetes Care. 2016.39(Suppl 1). LAB 3094-0(LOINC) BUN SerPl-mCnc 19 7-21 mg/ dL LAB 2160-0(LOINC) Creat SerPl-mCnc 0.90 0.58-0.96 mg/dL LAB 2951-2(LOINC) Sodium SerPl-sCnc 141 136-144 mmol/L LAB 2823-3(LOINC) Potassium SerPl-sCnc 5.5 High 3.7-5.1 mmol/L LAB 2075-0(LOINC) Chloride SerPl-sCnc 105 98-107 mmol/L LAB 2028-9(LOINC) CO2 SerPl-sCnc 22 22-30 mmo l/L LAB 10306-5(LOINC) Anion Gap SerPl-sCnc 14 8-15 mmol/L LAB 25959-9(LOINC) Creatinine + eGFR Pnl SerPlBld 63 >=60 mL/min/1 .73m??? Result Comment: Estimated Gl omerular Filtration Rate (eGFR) is calculated using the 2020 CKD-EPI creatinine equation. This equation utilizes serum creatinine, sex, and age as parameters. The creatinine assay has traceable calibration to isotope dilution-mass spectrometry. Refer to KDIGO guidelines for clinical interpretation. In patients with unstable renal function, e.g. those with acute kidney injury, the eGFR may not accurately reflect actual GFR. Performed By: #### 3016-3, 2 4331-1, 3024-7, 81673-8 #### [facility] CLIA [id number] [address] [place] [address] [place] LIPID 1996 PNL SERPL Collected: 025 11:26 AM Status: F Source: [facility] Comment: Specimen Type : BLOOD SPECIMEN Ordering Facility: [facility] Address: [address], [place] [address] TYPE CODE TESTS RESULT OUT OF RANGE REFERENCE UNITS LAB 3-3(LOINC) Cholest SerPl-mCnc 200 High <200 mg/dL Result Comment: <200 mg/dL, Desirable 200-239 mg/dL, Borderline high >239 mg/dL, High LAB 2571-8(LOINC) Trigl SerPl-mCnc 131 <150 mg/dL Result Comment: <150 mg/dL, Normal 150-199 mg/dL, Borderline high 200-499 mg/dL, High >499 mg/dL, Very high LAB 5-9(LOINC) HDLc SerPl-mCnc 89 >39 mg/dL Result Comment: 40-59 mg/dL, Acceptable >59 mg/dL, High: Negative risk factor for coronary heart disease <40 mg/dL, Low: Positive risk factor for coronary heart disease LAB 2088-1(LOINC) LDLc SerPl-mCnc 89 <100 mg/dL Result Comment: <100 mg/dL, Optimal 100-129 mg/dL, Near optimal/above optimal 130-159 mg/dL, Borderline high 160-189 mg/dL, High >189 mg/dL, Very high Secondary prevention optimal LDL Cholesterol levels are recommended to be <70 mg/dL LDL cholesterol is calculated using the Butler-NIH equation. LAB 26963-2(LOINC) NonHDLc SerPl-mCnc 111 <130 mg/dL Result Comment: <130 mg/dL, Optimal 130-159 mg/dL, Near optimal/above optimal 160-189 mg/dL, Borderline high 190-219 mg/dL, High >219 mg/dL, Very high Secondary prevention optimal non HDL Cholesterol levels are recommended to be <100 mg/dL LAB 17034-6(LOINC) VLDLc SerPl Calc-mCnc 21 <30 mg/dL LAB 9830-1(LOINC) Cholest/HDLc SerPl 2.25 <5.10 LAB 16095-6(LOINC) LDLc/HDLc SerPl 1.00 <2.54 Result Comment: Reference: 1. National Cholesterol Education Program ATP III Guideline At-A-Glance Quick Desk Reference: National Heart, Lung, and Blood [place]. National Institutes of Health. 2001: NIH Publication No. 01-3305. 2. An International Atherosclerosis Society position paper: global recommendations for the management of dyslipidemia: executive summary, Atherosclerosis. 2014: 232(2):410-413. LAB FT FASTING TIME 12 hrs Performed By: #### 3016-3, 2 4331-1, 3024-7, 07109-4 #### [facility] CLIA [id number] [address] [place] [address] [place] T4 FREE SERPL-MCNC Collected: 5 11:26 AM Status: F Source: [facility] Comment: Specimen Type : BLOOD SPECIMEN Ordering Facility: [facility] Address: [address] [place] [address] TYPE CODE TESTS RESULT OUT OF RANGE REFERENCE UNITS LAB 3024-7(LOINC) T4 Free SerPl-mCnc 1.4 0.9-1.7 ng/dL Performed By: #### 3016-3, 2 4331-1, 3024-7, 70520-4 #### [facility] CLIA [id number] [address] [place], [place] [id number] [place] TSH SERPL-ACNC Collected: 5 11:26 AM Status: F Source: [facility] Comment: Specimen Type : BLOOD SPECIMEN Ordering Facility: [facility] Address: [address] [place] [address] TYPE CODE TESTS RESULT OUT OF RANGE REFERENCE UNITS LAB 301-3(LOINC) TSH SerPl-aCnc 1.370 0.270-4.200 mIU/L Performed By: #### 3016-3, 2 4331-1, 3024-7, 79006-7 #### [facility] CLIA [id number] [address] [place], [place] [address] [place] 25(OH)D3 SERPL-MCNC Collected: 08/30/19 25 11:26 AM Status: F Source: [facility] Comment: Specimen Type : BLOOD SPECIMEN Ordering Facility: [facility] Address: [address] [place], [place] [address] TYPE CODE TESTS RESULT OUT OF RANGE REFERENCE UNITS LAB 1989-3(LOINC) 25(OH)D3 [facility] 63.8 31.0-80.0 ng/mL Performed By: #### 1988-06 ## ## [facility] CLIA [id number] [address] [place] [address] [place] [address] [facility] ECG COMPLETE Observed: 08/28/2024 12:47 PM Status: F Source: [facility] Ventricular Rate : 93 BPM QRS Duration : 84 ms Q-T Interval : 364 ms QTC Calculation(Bazett) : 452 ms Calculated R [place] : 7 degrees Calculated T [place] : -57 degrees ATRIAL FIBRILLATION INFERIOR T WAVE ABNORMALITY ABNORMAL ECG Confirmed by MD LOYA QARAB ([id number]) on 09/02/2024 12:34:02 PM NAME : HARJIT BRADSHAW PID : [id number] : 1940 Gender : Female Race : ORD : [id number] Procedure Date : Aug 28 2024 12:47:38 Edit Date : Sep 02 2024 12:34:05 Diagnosis: ATRIAL FIBRILLATION INFERIOR T WAVE ABNORMALITY ABNORMAL ECG Confirmed by MD LOYA QARAB ([id number]) on 09/02/2024 12:34:02 PM Test Reason : R07.89 Other chest pain Location : 185 : [facility] Overread By : MD LOYA QARAB Edited By : MD LOYA QARAB Referred By : , Acquired by : PAKO, PROGRESS Observed: 08/28/2024 12:40 PM Status: COMPLETED Source: [facility] HNO ID: [id number] Author: VINI HERNANDEZ DO Service: ? Author Type: Physician Type: Progress Notes Filed: 08/28/2024 13:14 Note Text: CC: Harjit Senia Bradshaw is a 84 year old female who presents to the office for follow up HPI: Has had a few episodes of dark tar like stool over the last few months. No abdominal pain, no obvious BRBPR. Denies any nausea or vomiting. Has had increased stress since her had a seizure in Fall 2023 and has had to be caregiving for him B/l knee pain,. Hx of b/l knee replacement surgery in the past. No injuries. Hasn't had any falls. Denies any regular exercise. States "when I walk for a while my knees just start to feel rubbery like they will give out on me." No use of a cane or a walker at this time. Hypothyroidism, willing to have labs obtained Anxiety, +irritability. Was seen in office by another provider 2 months ago and started on buspirone medication without any improvement in symptoms. Wondering if sertraline needs to be adjusted. No SI or HI. Has had stressors with her . Taking as an evening medication. Palpitations, fatigue, a few episodes of heart fluttering feeling/chest discomfort that is fleeting, no chest pressure, no LH/dizziness. No syncope. PAST MEDICAL HISTORY Diagnosis Date Anxiety Bilateral malignant neoplasm of central portion of breast in female (HCC) Disorder of bone and cartilage, unspecified Microcalcifications of the breast 11/24/2015 left Osteoarthrosis, unspecified whether generalized or localized, other specified sites knees Osteopenia of neck of femur 01/2022 Other and unspecified hyperlipidemia Unspecified hypothyroidism PAST SURGICAL HISTORY Procedure Laterality Date ARTHROPLASTY TOTAL SHOULDER Right 11/28/2017 Dr. David Nieto; R reverse total shoulder replacment ARTHROPLASTY TOTAL SHOULDER Left 01/09/2019 Dr. David Nieto @ [facility]; L reverse total shoulder replacement; L distal clavicle resection ARTHRP KNE CONDYLEANDPLATU MEDIALANDLAT COMPARTMENTS 2008 Knee replacement, total, bilateral BX BREAST W/DEVICE 1ST LESION STEREOTACTIC GUID Left 11/24/2015 BX/EXC LYMPH NODE OPEN DEEP AXILLARY NODE Left 12/07/2015 CHOLECYSTECTOMY Cholecystectomy INJ RADIOACTIVE TRACER FOR ID OF SENTINEL NODE 12/07/2015 MASTECTOMY, SIMPLE, COMPLETE Left 12/07/2015 TONSILLECTOMY HX Current Outpatient Medications Medication Sig metoprolol tartrate, short acting, (LOPRESSOR) 50 mg tablet Take 1 tablet by mouth two times a day. sertraline (ZOLOFT) 100 mg tablet Take 2 tablets by mouth once daily. amLODIPine (NORVASC) 5 mg tablet Take 1 tablet by mouth once daily. levothyroxine (SYNTHROID) 112 mcg tablet Take 1 tablet by mouth daily Take on empty stomach. For thyroid. pravastatin (PRAVACHOL) 40 mg tablet Take 1 tablet by mouth daily at bedtime. losartan (COZAAR) 50 mg tablet Take 1 tablet by mouth once daily. Blood Pressure Test Kit-Large 1 Each once daily. vitamin b complex tab Take 1 tablet by mouth once daily. calcium carbonate/vitamin D3 (CALCIUM 600 + D,3, ORAL) Take 1 tablet by mouth once daily. No current facility-administered medications for this visit. ALLERGIES Allergen Reactions Morphine Mental Status Change, Intolerance, GI Upset Social History Tobacco Use Smoking status: Never Smokeless tobacco: Never Vaping Use Vaping status: Never Used Substance Use Topics Alcohol use: Not Currently Comment: couple times a week Drug use: No ROS: See HPI PE: BP 120/80 Pulse 76 Temp (Src) 97 (Left Tympanic) Resp 16 Ht 5' 1.417" (1.56m) Wt 165 lb (74.8kg) BMI 30.75 kg/(m2). Gen: AANDOX3, NAD, non-toxic appearing HEENT: PERRLA, EOMs intact b/l, nares without drainage, pharynx without erythema, exudate, lesions, or drainage. Uvula midline. Neck: No LAD, no thyromegaly, no meningismus. CV: irregularly irregular, 1/6 HSM rusb soft blowing murmur, normal s1s2 Lungs: CTA b/l, no wheezing Skin: No rashes, lesions, or wounds on exposed skin. Reduced b/l thigh and leg strength B/l healed knee vertical incisions No edema lower legs, normal pulses Abd: soft, NT, ND, normal BS, no masses ASSESSMENT/PLAN: 1. Medicare annual wellness visit, subsequent - ICD9: V70.0, ICD10: Z00.00 (primary diagnosis) - Counseled on healthy diet and regular exercise - Discussed need and benefit for weight loss. BMI 30.75 kg/(m2) 2. HYPERTENSION BENIGN - ICD9: 401.1, ICD10: I10 - Controlled - Continue current medications - Recommend home blood pressure monitoring, to bring results to next visit - Encouraged sodium restriction, DASH or Mediterranean diet - Recommend regular aerobic exercise - METOPROLOL TARTRATE 50 MG TABLET 3. Carotid atherosclerosis, bilateral - ICD9: 433.10, 433.30, ICD10: I65.23 Recehck US carotids - US CAROTID ARTERIES [facility] 4. Palpitations - ICD9: 785.1, ICD10: R00.2 Check ECG today Check ECHO - ECHO - PERFLUTREN LIPID MICROSPHERES 1.1 MG/ML INJECTION IN NS 10 ML - SODIUM CHLORIDE 0.9 % (FLUSH) INJECTION SYRINGE 5. PALMA (generalized anxiety disorder) - ICD9: 300.02, ICD10: F41.1 Change zoloft to 100 mg in AM and 100 mg in pm Taper off the buspirone medication No SI or HI - SERTRALINE 100 MG TABLET 6. Dysthymia - ICD9: 300.4, ICD10: F34.1 Change zoloft to 100 mg in AM and 100 mg in pm Taper off the buspirone medication No SI or HI - SERTRALINE 100 MG TABLET 7. Other chest pain - ICD9: 786.59, ICD10: R07.89 See above - ECG COMPLETE 8. Melena - ICD9: 578.1, ICD10: K92.1 Check IFOBT Consider EGD/colonoscopy as d/w her today a - IMMUNOCHEMICAL FECAL OCCULT BLOOD TEST 9. Chronic pain of both knees - ICD9: 719.46, 338.29, ICD10: M25.561, M25.562, G89.29 Xray as ordered Needs to start regular exercises, consider PHYSICAL THERAPY Consider starting on Turmeric supplement as well - XR KNEE GENERAL 4V AP BOTH/PA BOTH/LAT/MERC BILATERAL 10. History of total knee arthroplasty, bilateral - ICD9: V43.65, ICD10: Z96.653 Xray as ordered Needs to start regular exercises, consider PHYSICAL THERAPY Consider starting on Turmeric supplement as well - XR KNEE GENERAL 4V AP BOTH/PA BOTH/LAT/MERC BILATERAL 11. Chronic atrial fibrillation (HCC) - ICD9: 427.31, ICD10: I48.20 Continue metoprolol Start on eliquis Check ECHO and carotid US F/u with Lending Consultant for opinion if any further testing is needed 12. Atrial fibrillation, unspecified type (HCC) - ICD9: 427.31, ICD10: I48.91 See above Continue metoprolol Start on eliquis Check ECHO and carotid US F/u with Lending Consultant for opinion if any further testing is needed - CONSULT TO CARDIOLOGY - APIXABAN 2.5 MG TABLET Vini Hernandez DO I spent 45 minutes in the visit, with more than 50% of the total [id number] time of the visit in counseling / coordination of care. Return if no improvement. Follow up with Vini L Hernandez, DO. To ER if develops chest pain, shortness of breath. Discussed risks, benefits, alternatives, and potential side effects of medications. Patient/Guardian expressed understanding and agreed with the plan. See patient instructions. Vini Hernandez DO [address] [place] [address] PROGRESS Observed: 08/28/2024 12:40 PM Status: COMPLETED Source: [facility] HNO ID: [id number] Author: VINI HERNANDEZ DO Service: ? Author Type: Physician Type: Progress Notes Filed: 08/28/2024 13:14 Note Text: Harjit Bradshaw is a 84 year old female here for a Medicare wellness visit. Medicare Health Risk Assessment General Health Good Exercise: Minutes/Day 0 min Exercise: Days/Week 0 days Alcohol: Daily Use 2-4 times a month Alcohol: Drinks/Day 1 or 2 Alcohol: 6 or more drinks Never Feel off balance No Concerns: Teeth/Dentures No Concerns: Sexual function No Troubled by feelings Stressed; Irritable Frequency: Eating healthy diet Several days ADLs requiring help None of the above Safety precautions in home/vehicle Yes Smoke, vape, chews tobacco No Difficulty hearing Yes, I wear a hearing aid Difficulty seeing No Current Providers Specialists: I have reviewed specialist-related care of the patient in the medical record. Medical/Family history review Reviewed and updated problem list, medical/surgical/family/social history, medications, and allergies. Opioid use review Opioid Medications (last 90 days) No data to display Anxiety/Depression screening PHQ-2 Score: 1 (Lower risk for depression) Recommendation: counseling and medication management Adjusting the zoloft Cognitive screening Mini Cog Score: 5 Cognitive screening reviewed and No further action needed (score 3-5). Functional Observation Was the patient's Timed Up AND Go test unsteady or >= 12 seconds? No Advance Care Planning Surrogate decision maker and/or advance care plan documented Measurements BP 120/80 Pulse 76 Temp 36.1 ?C (97 ?F) (Left Tympanic) Resp 16 Ht 156 cm (5' 1.42") Wt 74.8 kg (165 lb) BMI 30.75 kg/m? Vision Screening: Follows with optometry/ophthalmology Assessment/Plan Medicare annual wellness visit, subsequent (Z00.00) - Counseled on healthy diet and regular exercise - Fall avoidance information provided - Personalized prevention plan provided - Discussed need for and benefit of weight loss. BMI 30.75 kg/(m2) Vini Hernandez DO CNOV Observed: 08/28/2024 12:00 PM Status: COMPLETED Source: [facility] HARJIT BRADSHAW ([id number]) 1940 F Date Time Provider Department 08/28/24 12:00 PM [facility] During your visit today, we recorded the following information about you: Temperature Pulse Respiration Blood pressure 97 degrees 76/minute 16/minute 120/80 Weight Height 74.8 kg 1.56 m Vini Hernandez DO 08/28/2024 1:14 PM Signed Harjit Conn Augustine is a 84 year old female here for a Medicare wellness visit. Medicare Health Risk Assessment General Health Good Exercise: Minutes/Day 0 min Exercise: Days/Week 0 days Alcohol: Daily Use 2-4 times a month Alcohol: Drinks/Day 1 or 2 Alcohol: 6 or more drinks Never Feel off balance No Concerns: Teeth/Dentures No Concerns: Sexual function No Troubled by feelings Stressed; Irritable Frequency: Eating healthy diet Several days ADLs requiring help None of the above Safety precautions in home/vehicle Yes Smoke, vape, chews tobacco No Difficulty hearing Yes, I wear a hearing aid Difficulty seeing No Current Providers Specialists: I have reviewed specialist-related care of the patient in the medical record. Medical/Family history review Reviewed and updated problem list, medical/surgical/family/social history, medications, and allergies. Opioid use review Opioid Medications (last 90 days) No data to display Anxiety/Depression screening PHQ-2 Score: 1 (Lower risk for depression) Recommendation: counseling and medication management Adjusting the zoloft Cognitive screening Mini Cog Score: 5 Cognitive screening reviewed and No further action needed (score 3-5). Functional Observation Was the patient's Timed Up AND Go test unsteady or >= 12 seconds? No Advance Care Planning Surrogate decision maker and/or advance care plan documented Measurements BP 120/80 Pulse 76 Temp 36.1 ?C (97 ?F) (Left Tympanic) Resp 16 Ht 156 cm (5' 1.42") Wt 74.8 kg (165 lb) BMI 30.75 kg/m? Vision Screening: Follows with optometry/ophthalmology Assessment/Plan Medicare annual wellness visit, subsequent (Z00.00) - Counseled on healthy diet and regular exercise - Fall avoidance information provided - Personalized prevention plan provided - Discussed need for and benefit of weight loss. BMI 30.75 kg/(m2) DO Bridger Díaz Jordan L, DO 08/28/2024 1:14 PM Signed CC: Harjit Bradshaw is a 84 year old female who presents to the office for follow up HPI: Has had a few episodes of dark tar like stool over the last few months. No abdominal pain, no obvious BRBPR. Denies any nausea or vomiting. Has had increased stress since her had a seizure in Fall 2023 and has had to be caregiving for him B/l knee pain,. Hx of b/l knee replacement surgery in the past. No injuries. Hasn't had any falls. Denies any regular exercise. States "when I walk for a while my knees just start to feel rubbery like they will give out on me." No use of a cane or a walker at this time. Hypothyroidism, willing to have labs obtained Anxiety, +irritability. Was seen in office by another provider 2 months ago and started on buspirone medication without any improvement in symptoms. Wondering if sertraline needs to be adjusted. No SI or HI. Has had stressors with her . Taking as an evening medication. Palpitations, fatigue, a few episodes of heart fluttering feeling/chest discomfort that is fleeting, no chest pressure, no LH/dizziness. No syncope. PAST MEDICAL HISTORY Diagnosis Date Anxiety Bilateral malignant neoplasm of central portion of breast in female (HCC) Disorder of bone and cartilage, unspecified Microcalcifications of the breast 11/24/2015 left Osteoarthrosis, unspecified whether generalized or localized, other specified sites knees Osteopenia of neck of femur 01/2022 Other and unspecified hyperlipidemia Unspecified hypothyroidism PAST SURGICAL HISTORY Procedure Laterality Date ARTHROPLASTY TOTAL SHOULDER Right 11/28/2017 Dr. David Nieto; R reverse total shoulder replacment ARTHROPLASTY TOTAL SHOULDER Left 01/09/2019 Dr. David Nieto @ [facility]; L reverse total shoulder replacement; L distal clavicle resection ARTHRP KNE CONDYLEANDPLATU MEDIALANDLAT COMPARTMENTS 2008 Knee replacement, total, bilateral BX BREAST W/DEVICE 1ST LESION STEREOTACTIC GUID Left 11/24/2015 BX/EXC LYMPH NODE OPEN DEEP AXILLARY NODE Left 12/07/2015 CHOLECYSTECTOMY Cholecystectomy INJ RADIOACTIVE TRACER FOR ID OF SENTINEL NODE 12/07/2015 MASTECTOMY, SIMPLE, COMPLETE Left 12/07/2015 TONSILLECTOMY HX Current Outpatient Medications Medication Sig metoprolol tartrate, short acting, (LOPRESSOR) 50 mg tablet Take 1 tablet by mouth two times a day. sertraline (ZOLOFT) 100 mg tablet Take 2 tablets by mouth once daily. amLODIPine (NORVASC) 5 mg tablet Take 1 tablet by mouth once daily. levothyroxine (SYNTHROID) 112 mcg tablet Take 1 tablet by mouth daily Take on empty stomach. For thyroid. pravastatin (PRAVACHOL) 40 mg tablet Take 1 tablet by mouth daily at bedtime. losartan (COZAAR) 50 mg tablet Take 1 tablet by mouth once daily. Blood Pressure Test Kit-Large 1 Each once daily. vitamin b complex tab Take 1 tablet by mouth once daily. calcium carbonate/vitamin D3 (CALCIUM 600 + D,3, ORAL) Take 1 tablet by mouth once daily. No current facility-administered medications for this visit. ALLERGIES Allergen Reactions Morphine Mental Status Change, Intolerance, GI Upset Social History Tobacco Use Smoking status: Never Smokeless tobacco: Never Vaping Use Vaping status: Never Used Substance Use Topics Alcohol use: Not Currently Comment: couple times a week Drug use: No ROS: See HPI PE: BP 120/80 Pulse 76 Temp (Src) 97 (Left Tympanic) Resp 16 Ht 5' 1.417" (1.56m) Wt 165 lb (74.8kg) BMI 30.75 kg/(m2). Gen: AANDOX3, NAD, non-toxic appearing HEENT: PERRLA, EOMs intact b/l, nares without drainage, pharynx without erythema, exudate, lesions, or drainage. Uvula midline. Neck: No LAD, no thyromegaly, no meningismus. CV: irregularly irregular, 1/6 HSM rusb soft blowing murmur, normal s1s2 Lungs: CTA b/l, no wheezing Skin: No rashes, lesions, or wounds on exposed skin. Reduced b/l thigh and leg strength B/l healed knee vertical incisions No edema lower legs, normal pulses Abd: soft, NT, ND, normal BS, no masses ASSESSMENT/PLAN: 1. Medicare annual wellness visit, subsequent - ICD9: V70.0, ICD10: Z00.00 (primary diagnosis) - Counseled on healthy diet and regular exercise - Discussed need and benefit for weight loss. BMI 30.75 kg/(m2) 2. HYPERTENSION BENIGN - ICD9: 401.1, ICD10: I10 - Controlled - Continue current medications - Recommend home blood pressure monitoring, to bring results to next visit - Encouraged sodium restriction, DASH or Mediterranean diet - Recommend regular aerobic exercise - METOPROLOL TARTRATE 50 MG TABLET 3. Carotid atherosclerosis, bilateral - ICD9: 433.10, 433.30, ICD10: I65.23 Recehck US carotids - US CAROTID ARTERIES [facility] 4. Palpitations - ICD9: 785.1, ICD10: R00.2 Check ECG today Check ECHO - ECHO - PERFLUTREN LIPID MICROSPHERES 1.1 MG/ML INJECTION IN NS 10 ML - SODIUM CHLORIDE 0.9 % (FLUSH) INJECTION SYRINGE 5. PALMA (generalized anxiety disorder) - ICD9: 300.02, ICD10: F41.1 Change zoloft to 100 mg in AM and 100 mg in pm Taper off the buspirone medication No SI or HI - SERTRALINE 100 MG TABLET 6. Dysthymia - ICD9: 300.4, ICD10: F34.1 Change zoloft to 100 mg in AM and 100 mg in pm Taper off the buspirone medication No SI or HI - SERTRALINE 100 MG TABLET 7. Other chest pain - ICD9: 786.59, ICD10: R07.89 See above - ECG COMPLETE 8. Melena - ICD9: 578.1, ICD10: K92.1 Check IFOBT Consider EGD/colonoscopy as d/w her today a - IMMUNOCHEMICAL FECAL OCCULT BLOOD TEST 9. Chronic pain of both knees - ICD9: 719.46, 338.29, ICD10: M25.561, M25.562, G89.29 Xray as ordered Needs to start regular exercises, consider PHYSICAL THERAPY Consider starting on Turmeric supplement as well - XR KNEE GENERAL 4V AP BOTH/PA BOTH/LAT/MERC BILATERAL 10. History of total knee arthroplasty, bilateral - ICD9: V43.65, ICD10: Z96.653 Xray as ordered Needs to start regular exercises, consider PHYSICAL THERAPY Consider starting on Turmeric supplement as well - XR KNEE GENERAL 4V AP BOTH/PA BOTH/LAT/MERC BILATERAL 11. Chronic atrial fibrillation (HCC) - ICD9: 427.31, ICD10: I48.20 Continue metoprolol Start on eliquis Check ECHO and carotid US F/u with Lending Consultant for opinion if any further testing is needed 12. Atrial fibrillation, unspecified type (HCC) - ICD9: 427.31, ICD10: I48.91 See above Continue metoprolol Start on eliquis Check ECHO and carotid US F/u with Lending Consultant for opinion if any further testing is needed - CONSULT TO CARDIOLOGY - APIXABAN 2.5 MG TABLET Vini Hernandez DO I spent 45 minutes in the visit, with more than 50% of the total cuko-ic-hmog time of the visit in counseling / coordination of care. Return if no improvement. Follow up with Vini Hernandez DO. To ER if develops chest pain, shortness of breath. Discussed risks, benefits, alternatives, and potential side effects of medications. Patient/Guardian expressed understanding and agreed with the plan. See patient instructions. Vini Hernandez DO [address] [place] [address] Allergies As of Date: 08/28/2024 Noted Allergy Reaction MORPHINE 03/03/2014 1 - Mental Status Change 5 - Intolerance 8 - GI Upset Date Reviewed: 08/28/2024 Reviewed by: Randy Aguilera LPN - Fully Assessed Reason for Visit: Medicare Wellness Exam [4060] Primary Visit Diagnosis:Medicare annual wellness visit, subsequent [Z00.00] Other Visit Diagnoses:HYPERTENSION BENIGN [I10] Carotid atherosclerosis, 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] Palpitations [R00.2] PALMA (generalized anxiety disorder) [F41.1] Dysthymia [F34.1] Other chest pain [R07.89] Melena [K92.1] Chronic pain of both knees [M25.561, M25.562, G89.29] History of total knee arthroplasty, bilateral [Z96.653] Chronic atrial fibrillation (HCC) [I48.20] Atrial fibrillation, unspecified type (HCC) [I48.91] Order(s):metoprolol tartrate, short acting, (LOPRESSOR) 50 mg tabletTake 1 tablet by mouth two times a day.Disp: 180 tabletRfl: 3 CAROTID ARTERIES [facility] [0218492] Order #: [id number] FUTURE ECHO [235961] Order #: [id number]: 1 FUTURE sertraline (ZOLOFT) 100 mg tabletTake 2 tablets by mouth once daily.Disp: 180 tabletRfl: 1 ECG COMPLETE [ECG01] Order #: [id number]. #:[id number]--[id number] IMMUNOCHEMICAL FECAL OCCULT BLOOD TEST [SQIFOBT] Order #: [id number]. #:[id number] XR KNEE GENERAL 4V AP BOTH/PA BOTH/LAT/MERC BILATERAL [1721670] Order #: [id number] FUTURE CONSULT TO CARDIOLOGY [9004] Order #: [id number]: 1 FUTURE apixaban (ELIQUIS) 2.5 mg tab(s)Take 1 tablet by mouth two times a day.Disp: 60 tabletRfl: 3 Prescriptions as of 08/28/2024 - metoprolol tartrate, short acting, (LOPRESSOR) 50 mg tablet Take 1 tablet by mouth two times a day. - sertraline (ZOLOFT) 100 mg tablet Take 2 tablets by mouth once daily. - apixaban (ELIQUIS) 2.5 mg tab(s) Take 1 tablet by mouth two times a day. - amLODIPine (NORVASC) 5 mg tablet Take 1 tablet by mouth once daily. - levothyroxine (SYNTHROID) 112 mcg tablet Take 1 tablet by mouth daily Take on empty stomach. For thyroid. - pravastatin (PRAVACHOL) 40 mg tablet Take 1 tablet by mouth daily at bedtime. - losartan (COZAAR) 50 mg tablet Take 1 tablet by mouth once daily. - Blood Pressure Test Kit-Large 1 Each once daily. - vitamin b complex tab Take 1 tablet by mouth once daily. - calcium carbonate/vitamin D3 (CALCIUM 600 + D,3, ORAL) Take 1 tablet by mouth once daily. Meds Comments as of 03/03/2011: Problem List As Of Date 08/28/2024 Noted Resolved Hypothyroidism [E03.9] Hyperlipidemia [E78.5] BONE AND CARTILAGE DIS NOS [M89.9, M94.9] OSTEOARTHROS NOS-OTHER SITE [M19.90] BPPV (benign paroxysmal positional vertigo), un*02/15/2007 Malignant neoplasm of central portion of left f*11/27/2015 Unspecified hypothyroidism [E03.9] Other and unspecified hyperlipidemia [E78.5] Bilateral malignant neoplasm of central portion* Microcalcifications of the breast [R92.0] 11/24/2015 Osteopenia of neck of femur [M85.859] 01/2022 Dysthymia [F34.1] 08/24/2016 Malignant neoplasm of central portion of left b*11/15/2016 Dyslipidemia [E78.5] 08/29/2017 HYPERTENSION BENIGN [I10] 08/29/2017 Obesity, Class I, BMI 30-34.9 [E66.811] 08/29/2017 Vitamin D deficiency [E55.9] 02/28/2018 Hypothyroidism, acquired [E03.9] 02/28/2018 Fatigue [R53.83] 02/28/2018 Hypertensive crisis [I16.9] 06/12/2019 Dizziness [R42] 06/12/2019 Vertigo [R42] 06/12/2019 Uncomplicated alcohol dependence (HCC) [F10.20] 01/20/2021 Tremor [R25.1] 01/20/2021 PALMA (generalized anxiety disorder) [F41.1] 01/20/2021 Osteopenia, senile [M85.80] 12/15/2021 Anxious mood [F41.9] 12/15/2021 Hyperkalemia [E87.5] 08/15/2022 Vitamin B12 deficiency [E53.8] 08/15/2022 Hyperglycemia [R73.9] 08/15/2022 Personal history of alcoholism (HCC) [F10.21] 08/15/2022 Depression, recurrent (HCC) [F33.9] 08/15/2022 Prescriptions ordered this encounter Disp Refills Start End METOPROLOL TARTRATE 50 MG TABLET 180 * 3 08/28/2024 08/23/2025 Route: ORAL Sig: Take 1 tablet by mouth two times a day. SERTRALINE 100 MG TABLET 180 * 1 08/28/2024 Route: ORAL Sig: Take 2 tablets by mouth once daily. APIXABAN 2.5 MG TABLET 60 t* 3 08/28/2024 Route: ORAL Sig: Take 1 tablet by mouth two times a day. Medications Discontinued During This Encounter Prescriptions - metoprolol tartrate, short acting, (LOPRESSOR) 50 mg tablet (Discontinued) Take 1 tablet by mouth two times a day. - sertraline (ZOLOFT) 50 mg tablet (Discontinued) Take 1 tablet PO daily at bedtime x 1 week then increase to 2 tablets PO daily at bedtime - sertraline (ZOLOFT) 100 mg tablet (Discontinued) Take 2 tablets by mouth once daily. - busPIRone (BUSPAR) 10 mg tablet (Discontinued) Take 1 tablet by mouth two times a day. Encounter Status:Closed by VINI HERNANDEZ on 08/28/24 CNPN Observed: 08/28/2024 12:00 AM Status: COMPLETED Source: [facility] HARJIT BRADSHAW ([id number]) 1940 F Date Time Provider Department 08/28/24 [facility] During your visit today, we recorded the following information about you: Vini Hernandez DO 08/28/2024 1:15 PM Signed Please fax Lending Consultant referral to [facility] per her request Also fax current ECG and office notes DO Arabella Díaz Susan LPN 08/28/2024 2:00 PM Signed Medical records faxed to Dr. Can Allergies As of Date: 08/28/2024 Noted Allergy Reaction MORPHINE 03/03/2014 1 - Mental Status Change 5 - Intolerance 8 - GI Upset Date Reviewed: 08/28/2024 Reviewed by: Randy Agiulera LPN - Fully Assessed Prescriptions as of 08/28/2024 - metoprolol tartrate, short acting, (LOPRESSOR) 50 mg tablet Take 1 tablet by mouth two times a day. - sertraline (ZOLOFT) 100 mg tablet Take 2 tablets by mouth once daily. - apixaban (ELIQUIS) 2.5 mg tab(s) Take 1 tablet by mouth two times a day. - amLODIPine (NORVASC) 5 mg tablet Take 1 tablet by mouth once daily. - levothyroxine (SYNTHROID) 112 mcg tablet Take 1 tablet by mouth daily Take on empty stomach. For thyroid. - pravastatin (PRAVACHOL) 40 mg tablet Take 1 tablet by mouth daily at bedtime. - losartan (COZAAR) 50 mg tablet Take 1 tablet by mouth once daily. - Blood Pressure Test Kit-Large 1 Each once daily. - vitamin b complex tab Take 1 tablet by mouth once daily. - calcium carbonate/vitamin D3 (CALCIUM 600 + D,3, ORAL) Take 1 tablet by mouth once daily. Meds Comments as of 03/03/2011: Problem List As Of Date 08/28/2024 Noted Resolved Hypothyroidism [E03.9] Hyperlipidemia [E78.5] BONE AND CARTILAGE DIS NOS [M89.9, M94.9] OSTEOARTHROS NOS-OTHER SITE [M19.90] BPPV (benign paroxysmal positional vertigo), un*02/15/2007 Malignant neoplasm of central portion of left f*11/27/2015 Unspecified hypothyroidism [E03.9] Other and unspecified hyperlipidemia [E78.5] Bilateral malignant neoplasm of central portion* Microcalcifications of the breast [R92.0] 11/24/2015 Osteopenia of neck of femur [M85.859] 01/2022 Dysthymia [F34.1] 08/24/2016 Malignant neoplasm of central portion of left b*11/15/2016 Dyslipidemia [E78.5] 08/29/2017 HYPERTENSION BENIGN [I10] 08/29/2017 Obesity, Class I, BMI 30-34.9 [E66.811] 08/29/2017 Vitamin D deficiency [E55.9] 02/28/2018 Hypothyroidism, acquired [E03.9] 02/28/2018 Fatigue [R53.83] 02/28/2018 Hypertensive crisis [I16.9] 06/12/2019 Dizziness [R42] 06/12/2019 Vertigo [R42] 06/12/2019 Uncomplicated alcohol dependence (HCC) [F10.20] 01/20/2021 Tremor [R25.1] 01/20/2021 PALMA (generalized anxiety disorder) [F41.1] 01/20/2021 Osteopenia, senile [M85.80] 12/15/2021 Anxious mood [F41.9] 12/15/2021 Hyperkalemia [E87.5] 08/15/2022 Vitamin B12 deficiency [E53.8] 08/15/2022 Hyperglycemia [R73.9] 08/15/2022 Personal history of alcoholism (HCC) [F10.21] 08/15/2022 Depression, recurrent (HCC) [F33.9] 08/15/2022 Encounter Status:Closed by RANDY AGUILERA LPN on 08/28/24 CNOV Observed: 07/11/2024 2:20 PM Status: COMPLETED Source: [facility] Office Visit ([facility]) HARJIT BRADSHAW ([id number]) 1940 F Date Time Provider Department 07/11/24 2:20 PM SIVA ROMEROPWS During your visit today, we recorded the following information about you: Pulse Respiration Blood pressure Weight 60/minute 18/minute 130/84 74.7 kg Siva Romero MD 07/11/2024 2:56 PM Signed Chief Complaint Patient presents with: Anxiety HPI Ica A Augustine is a 83 year old female who presents here today for anxiety. Established pt of Dr. Hernandez, new to this office. Pt here with c/o anxiety. Pt called into the office and spoke with Triage Nurse with increasing anxiety over the past month. Pt reports this has worsened since having to care for her . Pt reports symptoms of anxiety, leg feel like rubber, hands get shaky, bottom lip starts shaking and can hardly get it to stop, stomach feels like it "flip/flops", tired, and has no energy. Pt has less ambition, not wanting to go to the store or go around people. Decreased appetite, has lost 10 pounds of weight. Does have hx of depression and anxiety. Denies SI/HI. Reports severity a 9.5/10. Does have family support with her children around, which is helpful. Pt currently takes Zoloft 100 + 50 mg 1 tab po once daily. Zoloft has been helpful. Has not done any counseling. Past medical history, appointments, medications, allergies reviewed. Previous Medical History PAST MEDICAL HISTORY Diagnosis Date Anxiety Bilateral malignant neoplasm of central portion of breast in female (HCC) Disorder of bone and cartilage, unspecified Microcalcifications of the breast 11/24/2015 left Osteoarthrosis, unspecified whether generalized or localized, other specified sites knees Osteopenia of neck of femur 01/2022 Other and unspecified hyperlipidemia Unspecified hypothyroidism Previous Surgical History PAST SURGICAL HISTORY Procedure Laterality Date ARTHROPLASTY TOTAL SHOULDER Right 11/28/2017 Dr. David Nieto; R reverse total shoulder replacment ARTHROPLASTY TOTAL SHOULDER Left 01/09/2019 Dr. David Nieto @ [facility]; L reverse total shoulder replacement; L distal clavicle resection ARTHRP KNE CONDYLEANDPLATU MEDIALANDLAT COMPARTMENTS 2008 Knee replacement, total, bilateral BX BREAST W/DEVICE 1ST LESION STEREOTACTIC GUID Left 11/24/2015 BX/EXC LYMPH NODE OPEN DEEP AXILLARY NODE Left 12/07/2015 CHOLECYSTECTOMY Cholecystectomy INJ RADIOACTIVE TRACER FOR ID OF SENTINEL NODE 12/07/2015 MASTECTOMY, SIMPLE, COMPLETE Left 12/07/2015 TONSILLECTOMY HX Family History FAMILY HISTORY Problem Relation Age of Onset Cancer Mother ? no details, 85 Coronary Artery Disease Father [place], 94 Cancer Sister 57 liver Cancer Brother 50 Acute leukemia Cancer Brother Unknown type of cancer Cancer Brother ?Lung--Unknown type of cancer Cancer Sister 70 Breast cancer Cancer Sister lung Cancer Sister Rheumatologic disease Sister Cancer Brother lung COPD Brother Heart Brother Patient Allergies ALLERGIES Allergen Reactions Morphine Mental Status Change, Intolerance, GI Upset Current Medications Current Outpatient Medications on File Prior to Visit Medication Sig sertraline (ZOLOFT) 100 mg tablet Take 1.5 tablets daily at bedtime amLODIPine (NORVASC) 5 mg tablet Take 1 tablet by mouth once daily. levothyroxine (SYNTHROID) 112 mcg tablet Take 1 tablet by mouth daily Take on empty stomach. For thyroid. pravastatin (PRAVACHOL) 40 mg tablet Take 1 tablet by mouth daily at bedtime. losartan (COZAAR) 50 mg tablet Take 1 tablet by mouth once daily. sertraline (ZOLOFT) 50 mg tablet Take 1 tablet PO daily at bedtime x 1 week then increase to 2 tablets PO daily at bedtime metoprolol tartrate, short acting, (LOPRESSOR) 50 mg tablet Take 1 tablet by mouth two times a day. Blood Pressure Test Kit-Large 1 Each once daily. vitamin b complex tab Take 1 tablet by mouth once daily. calcium carbonate/vitamin D3 (CALCIUM 600 + D,3, ORAL) Take 1 tablet by mouth once daily. No current facility-administered medications on file prior to visit. Social History Social History Tobacco Use Smoking status: Never Smokeless tobacco: Never Vaping Use Vaping status: Never Used Substance Use Topics Alcohol use: Not Currently Comment: couple times a week Drug use: No EXAM: BP 130/84 (BP Site: Right Arm, BP Position: Sitting, BP Cuff Size: Regular Adult) Pulse 60 Resp 18 Wt 74.7 kg (164 lb 10.9 oz) BMI 30.70 kg/m? General Appearance: Well appearing, alert, in no acute distress, well-hydrated, well nourished.. Lungs: Lungs clear to auscultation. No wheezing, rhonchi, rales.. Heart: RRR without murmur, gallop, or rubs. No ectopy. Health Maintenance List DTaP,Tdap,Td Vaccine(1 - Tdap) Never done RSV Vaccine(1 - 1-dose 75+ series) Never done Shingrix Vaccine(2 of 2) due on 12/31/2022 Covid-19 Vaccine(2023- season) due on 08/25/2024 Diabetes Screening due on 02/18/2027 Bone Density Screening Completed Influenza Vaccine Completed Pneumococcal Vaccine: 50+ Completed Colorectal Cancer Screening Discontinued Advance Directive Discussion Discontinued Data reviewed None ASSESSMENT/PLAN: 1. PALMA (generalized anxiety disorder) - ICD9: 300.02, ICD10: F41.1 (primary diagnosis) Increase zoloft to 200mg daily, add Buspar 10 mg bid - SERTRALINE 100 MG TABLET - BUSPIRONE 10 MG TABLET 2. Dysthymia - ICD9: 300.4, ICD10: F34.1 - SERTRALINE 100 MG TABLET - BUSPIRONE 10 MG TABLET Follow up with PCP as scheduled Medical Decision Making: Problems: Moderate: 1+ chronic illnesses with change Risk: Moderate: Drug management Medical Decision Making Level: 4 - Moderate Siva Romero MD Allergies As of Date: 07/11/2024 Noted Allergy Reaction MORPHINE 03/03/2014 1 - Mental Status Change 5 - Intolerance 8 - GI Upset Date Reviewed: 07/11/2024 Reviewed by: Milana Rader MA - Fully Assessed Reason for Visit: Anxiety [9] Primary Visit Diagnosis:PALMA (generalized anxiety disorder) [F41.1] Other Visit Diagnosis:Dysthymia [F34.1] Order(s):sertraline (ZOLOFT) 100 mg tabletTake 2 tablets by mouth once daily.Disp: 180 tabletRfl: 1 busPIRone (BUSPAR) 10 mg tabletTake 1 tablet by mouth two times a day.Disp: 60 tabletRfl: 2 Prescriptions as of 07/11/2024 - sertraline (ZOLOFT) 100 mg tablet Take 2 tablets by mouth once daily. - busPIRone (BUSPAR) 10 mg tablet Take 1 tablet by mouth two times a day. - amLODIPine (NORVASC) 5 mg tablet Take 1 tablet by mouth once daily. - levothyroxine (SYNTHROID) 112 mcg tablet Take 1 tablet by mouth daily Take on empty stomach. For thyroid. - pravastatin (PRAVACHOL) 40 mg tablet Take 1 tablet by mouth daily at bedtime. - losartan (COZAAR) 50 mg tablet Take 1 tablet by mouth once daily. - sertraline (ZOLOFT) 50 mg tablet Take 1 tablet PO daily at bedtime x 1 week then increase to 2 tablets PO daily at bedtime - metoprolol tartrate, short acting, (LOPRESSOR) 50 mg tablet Take 1 tablet by mouth two times a day. - Blood Pressure Test Kit-Large 1 Each once daily. - vitamin b complex tab Take 1 tablet by mouth once daily. - calcium carbonate/vitamin D3 (CALCIUM 600 + D,3, ORAL) Take 1 tablet by mouth once daily. Meds Comments as of 03/03/2011: Problem List As Of Date 07/11/2024 Noted Resolved Hypothyroidism [E03.9] Hyperlipidemia [E78.5] BONE AND CARTILAGE DIS NOS [M89.9, M94.9] OSTEOARTHROS NOS-OTHER SITE [M19.90] BPPV (benign paroxysmal positional vertigo), un*02/15/2007 Malignant neoplasm of central portion of left f*11/27/2015 Unspecified hypothyroidism [E03.9] Other and unspecified hyperlipidemia [E78.5] Bilateral malignant neoplasm of central portion* Microcalcifications of the breast [R92.0] 11/24/2015 Osteopenia of neck of femur [M85.859] 01/2022 Dysthymia [F34.1] 08/24/2016 Malignant neoplasm of central portion of left b*11/15/2016 Dyslipidemia [E78.5] 08/29/2017 HYPERTENSION BENIGN [I10] 08/29/2017 Obesity, Class I, BMI 30-34.9 [E66.811] 08/29/2017 Vitamin D deficiency [E55.9] 02/28/2018 Hypothyroidism, acquired [E03.9] 02/28/2018 Fatigue [R53.83] 02/28/2018 Hypertensive crisis [I16.9] 06/12/2019 Dizziness [R42] 06/12/2019 Vertigo [R42] 06/12/2019 Uncomplicated alcohol dependence (HCC) [F10.20] 01/20/2021 Tremor [R25.1] 01/20/2021 PALMA (generalized anxiety disorder) [F41.1] 01/20/2021 Osteopenia, senile [M85.80] 12/15/2021 Anxious mood [F41.9] 12/15/2021 Hyperkalemia [E87.5] 08/15/2022 Vitamin B12 deficiency [E53.8] 08/15/2022 Hyperglycemia [R73.9] 08/15/2022 Personal history of alcoholism (HCC) [F10.21] 08/15/2022 Depression, recurrent (HCC) [F33.9] 08/15/2022 Prescriptions ordered this encounter Disp Refills Start End SERTRALINE 100 MG TABLET 180 * 1 07/11/2024 Route: ORAL Sig: Take 2 tablets by mouth once daily. BUSPIRONE 10 MG TABLET 60 t* 2 07/11/2024 Route: ORAL Sig: Take 1 tablet by mouth two times a day. Medications Discontinued During This Encounter Prescriptions - sertraline (ZOLOFT) 100 mg tablet (Discontinued) Take 1.5 tablets daily at bedtime Level of Service: OFFICE/OUTPATIENT ESTABLISHED MOD MDM 30 MIN [70227] Additional E/M codes: VISIT CPLX INHERENT EANDM ASSOC WITH MED * Disposition: Return if symptoms worsen or fail to improve. Follow-up and Disposition History for Encounter Date Provider Department Center 07/11/2024 [id number] En[facility] Status:Closed by SIVA ROMERO on 07/11/24 PROGRESS Observed: 07/11/2024 2:20 PM Status: COMPLETED Source: [facility] HN ID: [id number] Author: SIVA ROMERO MD Service: ? Author Type: Physician Type: Progress Notes Filed: 07/11/2024 14:56 Note Text: Chief Complaint Patient presents with: Anxiety HPI Ica Senia Bradshaw is a 83 year old female who presents here today for anxiety. Established pt of Dr. Hernandez, new to this office. Pt here with c/o anxiety. Pt called into the office and spoke with Triage Nurse with increasing anxiety over the past month. Pt reports this has worsened since having to care for her . Pt reports symptoms of anxiety, leg feel like rubber, hands get shaky, bottom lip starts shaking and can hardly get it to stop, stomach feels like it "flip/flops", tired, and has no energy. Pt has less ambition, not wanting to go to the store or go around people. Decreased appetite, has lost 10 pounds of weight. Does have hx of depression and anxiety. Denies SI/HI. Reports severity a 9.5/10. Does have family support with her children around, which is helpful. Pt currently takes Zoloft 100 + 50 mg 1 tab po once daily. Zoloft has been helpful. Has not done any counseling. Past medical history, appointments, medications, allergies reviewed. Previous Medical History PAST MEDICAL HISTORY Diagnosis Date Anxiety Bilateral malignant neoplasm of central portion of breast in female (HCC) Disorder of bone and cartilage, unspecified Microcalcifications of the breast 11/24/2015 left Osteoarthrosis, unspecified whether generalized or localized, other specified sites knees Osteopenia of neck of femur 01/2022 Other and unspecified hyperlipidemia Unspecified hypothyroidism Previous Surgical History PAST SURGICAL HISTORY Procedure Laterality Date ARTHROPLASTY TOTAL SHOULDER Right 11/28/2017 Dr. David Nieto; R reverse total shoulder replacment ARTHROPLASTY TOTAL SHOULDER Left 01/09/2019 Dr. David Nieto @ [facility]; L reverse total shoulder replacement; L distal clavicle resection ARTHRP KNE CONDYLEANDPLATU MEDIALANDLAT COMPARTMENTS 2008 Knee replacement, total, bilateral BX BREAST W/DEVICE 1ST LESION STEREOTACTIC GUID Left 11/24/2015 BX/EXC LYMPH NODE OPEN DEEP AXILLARY NODE Left 12/07/2015 CHOLECYSTECTOMY Cholecystectomy INJ RADIOACTIVE TRACER FOR ID OF SENTINEL NODE 12/07/2015 MASTECTOMY, SIMPLE, COMPLETE Left 12/07/2015 TONSILLECTOMY HX Family History FAMILY HISTORY Problem Relation Age of Onset Cancer Mother ? no details, 85 Coronary Artery Disease Father [place], 94 Cancer Sister 57 liver Cancer Brother 50 Acute leukemia Cancer Brother Unknown type of cancer Cancer Brother ?Lung--Unknown type of cancer Cancer Sister 70 Breast cancer Cancer Sister lung Cancer Sister Rheumatologic disease Sister Cancer Brother lung COPD Brother Heart Brother Patient Allergies ALLERGIES Allergen Reactions Morphine Mental Status Change, Intolerance, GI Upset Current Medications Current Outpatient Medications on File Prior to Visit Medication Sig sertraline (ZOLOFT) 100 mg tablet Take 1.5 tablets daily at bedtime amLODIPine (NORVASC) 5 mg tablet Take 1 tablet by mouth once daily. levothyroxine (SYNTHROID) 112 mcg tablet Take 1 tablet by mouth daily Take on empty stomach. For thyroid. pravastatin (PRAVACHOL) 40 mg tablet Take 1 tablet by mouth daily at bedtime. losartan (COZAAR) 50 mg tablet Take 1 tablet by mouth once daily. sertraline (ZOLOFT) 50 mg tablet Take 1 tablet PO daily at bedtime x 1 week then increase to 2 tablets PO daily at bedtime metoprolol tartrate, short acting, (LOPRESSOR) 50 mg tablet Take 1 tablet by mouth two times a day. Blood Pressure Test Kit-Large 1 Each once daily. vitamin b complex tab Take 1 tablet by mouth once daily. calcium carbonate/vitamin D3 (CALCIUM 600 + D,3, ORAL) Take 1 tablet by mouth once daily. No current facility-administered medications on file prior to visit. Social History Social History Tobacco Use Smoking status: Never Smokeless tobacco: Never Vaping Use Vaping status: Never Used Substance Use Topics Alcohol use: Not Currently Comment: couple times a week Drug use: No EXAM: BP 130/84 (BP Site: Right Arm, BP Position: Sitting, BP Cuff Size: Regular Adult) Pulse 60 Resp 18 Wt 74.7 kg (164 lb 10.9 oz) BMI 30.70 kg/m? General Appearance: Well appearing, alert, in no acute distress, well-hydrated, well nourished.. Lungs: Lungs clear to auscultation. No wheezing, rhonchi, rales.. Heart: RRR without murmur, gallop, or rubs. No ectopy. Health Maintenance List DTaP,Tdap,Td Vaccine(1 - Tdap) Never done RSV Vaccine(1 - 1-dose 75+ series) Never done Shingrix Vaccine(2 of 2) due on 12/31/2022 Covid-19 Vaccine( season) due on 08/25/2024 Diabetes Screening due on 02/18/2027 Bone Density Screening Completed Influenza Vaccine Completed Pneumococcal Vaccine: 50+ Completed Colorectal Cancer Screening Discontinued Advance Directive Discussion Discontinued Data reviewed None ASSESSMENT/PLAN: 1. PALMA (generalized anxiety disorder) - ICD9: 300.02, ICD10: F41.1 (primary diagnosis) Increase zoloft to 200mg daily, add Buspar 10 mg bid - SERTRALINE 100 MG TABLET - BUSPIRONE 10 MG TABLET 2. Dysthymia - ICD9: 300.4, ICD10: F34.1 - SERTRALINE 100 MG TABLET - BUSPIRONE 10 MG TABLET Follow up with PCP as scheduled Medical Decision Making: Problems: Moderate: 1+ chronic illnesses with change Risk: Moderate: Drug management Medical Decision Making Level: 4 - Moderate Siva Romero MD PROGRESS Observed: 07/10/2024 12:55 PM Status: COMPLETED Source: [facility] HNO ID: [id number] Author: DORITA TIJERINA MA Service: ? Author Type: Sales Producer Type: Progress Notes Filed: 07/10/2024 13:27 Note Text: POPULATION HEALTH NAVIGATION OUTREACH Action/FYI Advised patient to be seen within 24 hours due to anxiety symptoms. Patient would like to see Dr. Hernandez. Call received from Chikis Leone RN - above message copied from Triage Encounter. RN did not have patient on the phone at time of call. Call placed to patient to assist in scheduling OV with PCP to discuss anxiety, patient agreeable to schedule with PCP/Team. Reason for Outreach Healthy at Home Care Gaps due: N/A Call received from: Nurse Chikis Leone RN Patient Contacted: Spoke to patient/parent/or legal guardian Patient identified by name and date of Yes Healthy at Home actions taken: Patient scheduled/pended orders: Follow-up Appointment 07/11/2024 in [facility] with SIVA ROMERO - Anxiety 08/28/2024 in [facility] with VINI HERNANDEZ - Medicare Wellness 01/10/2025 in [facility] with [facility] - 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 in female, estrogen receptor positive (HCC) [C50.112, Z17.0]; Encounter for screening mammogram for high-risk patient [Z12.31] , Comment: RIGHT 01/20/2025 in [facility] with ELISSA NEGRO - 1 YR OV/MAMM 01/10* Navigation Signature: Dorita Hopkins MA July 10, 2024 12:55 PM CNPTOUTREACH Observed: 07/10/2024 12:00 AM Status: COMPLETED Source: [facility] Patient Outreach (NETNA[facility]) HARJIT BRADSHAW ([id number]) 1940 F Date Time Provider Department 07/10/24 DORITA TIJERINA During your visit today, we recorded the following information about you: Dorita Tijerina MA 07/10/2024 1:27 PM Signed POPULATION HEALTH NAVIGATION OUTREACH Action/FYI Advised patient to be seen within 24 hours due to anxiety symptoms. Patient would like to see Dr. Hernandez. Call received from Chikis Leone RN - above message copied from Triage Encounter. RN did not have patient on the phone at time of call. Call placed to patient to assist in scheduling OV with PCP to discuss anxiety, patient agreeable to schedule with PCP/Team. Reason for Outreach Healthy at Home Care Gaps due: N/A Call received from: Nurse Chikis Leone RN Patient Contacted: Spoke to patient/parent/or legal guardian Patient identified by name and date of Yes Healthy at Home actions taken: Patient scheduled/pended orders: Follow-up Appointment 07/11/2024 in [facility] with SIVA ROMERO - Anxiety 08/28/2024 in [facility] with VINI HERNANDEZ - Medicare Wellness 01/10/2025 in [facility] with [facility] - 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 in female, estrogen receptor positive (HCC) [C50.112, Z17.0]; Encounter for screening mammogram for high-risk patient [Z12.31] , Comment: RIGHT 01/20/2025 in [facility] with ELISSA NEGRO - 1 YR OV/MAMM 01/10* Navigation Signature: Dorita Hopkins MA July 10, 2024 12:55 PM Allergies As of Date: 07/10/2024 Noted Allergy Reaction MORPHINE 03/03/2014 1 - Mental Status Change 5 - Intolerance 8 - GI Upset Date Reviewed: 02/26/2024 Reviewed by: Randy Aguilera LPN - Fully Assessed Reason for Visit: Population Health Navigation Outreach [3910] Cmt: Healthy at Home - [facility] Prescriptions as of 07/10/2024 - sertraline (ZOLOFT) 100 mg tablet Take 1.5 tablets daily at bedtime - amLODIPine (NORVASC) 5 mg tablet Take 1 tablet by mouth once daily. - levothyroxine (SYNTHROID) 112 mcg tablet Take 1 tablet by mouth daily Take on empty stomach. For thyroid. - pravastatin (PRAVACHOL) 40 mg tablet Take 1 tablet by mouth daily at bedtime. - losartan (COZAAR) 50 mg tablet Take 1 tablet by mouth once daily. - sertraline (ZOLOFT) 50 mg tablet Take 1 tablet PO daily at bedtime x 1 week then increase to 2 tablets PO daily at bedtime - metoprolol tartrate, short acting, (LOPRESSOR) 50 mg tablet Take 1 tablet by mouth two times a day. - Blood Pressure Test Kit-Large 1 Each once daily. - vitamin b complex tab Take 1 tablet by mouth once daily. - calcium carbonate/vitamin D3 (CALCIUM 600 + D,3, ORAL) Take 1 tablet by mouth once daily. Meds Comments as of 03/03/2011: Problem List As Of Date 07/10/2024 Noted Resolved Hypothyroidism [E03.9] Hyperlipidemia [E78.5] BONE AND CARTILAGE DIS NOS [M89.9, M94.9] OSTEOARTHROS NOS-OTHER SITE [M19.90] BPPV (benign paroxysmal positional vertigo), un*02/15/2007 Malignant neoplasm of central portion of left f*11/27/2015 Unspecified hypothyroidism [E03.9] Other and unspecified hyperlipidemia [E78.5] Bilateral malignant neoplasm of central portion* Microcalcifications of the breast [R92.0] 11/24/2015 Osteopenia of neck of femur [M85.859] 01/2022 Dysthymia [F34.1] 08/24/2016 Malignant neoplasm of central portion of left b*11/15/2016 Dyslipidemia [E78.5] 08/29/2017 HYPERTENSION BENIGN [I10] 08/29/2017 Obesity, Class I, BMI 30-34.9 [E66.811] 08/29/2017 Vitamin D deficiency [E55.9] 02/28/2018 Hypothyroidism, acquired [E03.9] 02/28/2018 Fatigue [R53.83] 02/28/2018 Hypertensive crisis [I16.9] 06/12/2019 Dizziness [R42] 06/12/2019 Vertigo [R42] 06/12/2019 Uncomplicated alcohol dependence (HCC) [F10.20] 01/20/2021 Tremor [R25.1] 01/20/2021 PALMA (generalized anxiety disorder) [F41.1] 01/20/2021 Osteopenia, senile [M85.80] 12/15/2021 Anxious mood [F41.9] 12/15/2021 Hyperkalemia [E87.5] 08/15/2022 Vitamin B12 deficiency [E53.8] 08/15/2022 Hyperglycemia [R73.9] 08/15/2022 Personal history of alcoholism (HCC) [F10.21] 08/15/2022 Depression, recurrent (HCC) [F33.9] 08/15/2022 Encounter Status:Closed by DORITA TIJERINA on 07/10/24 PROGRESS Observed: 03/04/2024 10:02 AM Status: COMPLETED Source: [facility] HNO ID: [id number] Author: OWEN JARVIS RN Service: ? Author Type: Registered Nurse Type: Progress Notes Filed: 03/04/2024 10:07 Note Text: CDM Telephonic Outreach Provider Action/FYI HTN, depression, breast cancer with mast, + for Covid in June, Healthy At Home Goal Pt would like to lose 10-15 pounds this year.Stay away from cookies, candies, and bread and will increase activity outside when the weather warms up, check BP at home Contacted for: Routine Telephonic Outreach Contact made with patient: No, unable to leave message. Will reattempt call Recorded Message stated "call did not go through", attempted 2 x Owen Jarvis RN March 04, 2024 10:06 AM CNPTOUTREACH Observed: 03/04/2024 12:00 AM Status: COMPLETED Source: [facility] Patient Outreach ([facility]) HARJIT BRADSHAW ([id number]) 1940 F Date Time Provider Department 03/04/24 OWEN JARVIS During your visit today, we recorded the following information about you: Owen Jarvis RN 03/04/2024 10:07 AM Signed CDM Telephonic Outreach Provider Action/FYI HTN, depression, breast cancer with mast, + for Covid in June, Healthy At Home Goal Pt would like to lose 10-15 pounds this year.Stay away from cookies, candies, and bread and will increase activity outside when the weather warms up, check BP at home Contacted for: Routine Telephonic Outreach Contact made with patient: No, unable to leave message. Will reattempt call Recorded Message stated "call did not go through", attempted 2 x Owen Jarvis RN March 04, 2024 10:06 AM Allergies As of Date: 03/04/2024 Noted Allergy Reaction MORPHINE 03/03/2014 1 - Mental Status Change 5 - Intolerance 8 - GI Upset Date Reviewed: 02/26/2024 Reviewed by: Randy Aguilera LPN - Fully Assessed Prescriptions as of 03/20/2024 - sertraline (ZOLOFT) 100 mg tablet Take 1.5 tablets daily at bedtime - amLODIPine (NORVASC) 5 mg tablet Take 1 tablet by mouth once daily. - levothyroxine (SYNTHROID) 112 mcg tablet Take 1 tablet by mouth daily Take on empty stomach. For thyroid. - pravastatin (PRAVACHOL) 40 mg tablet Take 1 tablet by mouth daily at bedtime. - losartan (COZAAR) 50 mg tablet Take 1 tablet by mouth once daily. - sertraline (ZOLOFT) 50 mg tablet Take 1 tablet PO daily at bedtime x 1 week then increase to 2 tablets PO daily at bedtime - metoprolol tartrate, short acting, (LOPRESSOR) 50 mg tablet Take 1 tablet by mouth two times a day. - Blood Pressure Test Kit-Large 1 Each once daily. - vitamin b complex tab Take 1 tablet by mouth once daily. - calcium carbonate/vitamin D3 (CALCIUM 600 + D,3, ORAL) Take 1 tablet by mouth once daily. Meds Comments as of 03/03/2011: Problem List As Of Date 03/04/2024 Noted Resolved Hypothyroidism [E03.9] Hyperlipidemia [E78.5] BONE AND CARTILAGE DIS NOS [M89.9, M94.9] OSTEOARTHROS NOS-OTHER SITE [M19.90] BPPV (benign paroxysmal positional vertigo), un*02/15/2007 Malignant neoplasm of central portion of left f*11/27/2015 Unspecified hypothyroidism [E03.9] Other and unspecified hyperlipidemia [E78.5] Bilateral malignant neoplasm of central portion* Microcalcifications of the breast [R92.0] 11/24/2015 Osteopenia of neck of femur [M85.859] 01/2022 Dysthymia [F34.1] 08/24/2016 Malignant neoplasm of central portion of left b*11/15/2016 Dyslipidemia [E78.5] 08/29/2017 HYPERTENSION BENIGN [I10] 08/29/2017 Obesity, Class I, BMI 30-34.9 [E66.811] 08/29/2017 Vitamin D deficiency [E55.9] 02/28/2018 Hypothyroidism, acquired [E03.9] 02/28/2018 Fatigue [R53.83] 02/28/2018 Hypertensive crisis [I16.9] 06/12/2019 Dizziness [R42] 06/12/2019 Vertigo [R42] 06/12/2019 Uncomplicated alcohol dependence (HCC) [F10.20] 01/20/2021 Tremor [R25.1] 01/20/2021 PALMA (generalized anxiety disorder) [F41.1] 01/20/2021 Osteopenia, senile [M85.80] 12/15/2021 Anxious mood [F41.9] 12/15/2021 Hyperkalemia [E87.5] 08/15/2022 Vitamin B12 deficiency [E53.8] 08/15/2022 Hyperglycemia [R73.9] 08/15/2022 Personal history of alcoholism (HCC) [F10.21] 08/15/2022 Depression, recurrent (HCC) [F33.9] 08/15/2022 Encounter Status:Closed by OWEN JARVIS on 03/04/24 SID Observed: 02/29/2024 12:00 AM Status: COMPLETED Source: [facility] Telephone (FAMPWS) HARJIT BRADSHAW ([id number]) 1940 F Date Time Provider Department 02/29/24 VINI HERNANDEZ During your visit today, we recorded the following information about you: Purnima Galvez LPN 02/29/2024 9:18 AM Signed [facility] calling asking to clarify directions on Sertraline 100 mg rx please. Rx has 2 sets of directions on the rx. Aware PCP is out of the office on and they will notify the patient also. Please advise Ava Roberts PA-C 03/04/2024 10:46 AM Signed Please confirm with patient her dose-it appears from last visit and refill that she is taking Zoloft 100 mg - 2 tabs at bedtime. Kiya Angeles RN 03/05/2024 11:17 AM Signed Please see below. Pt appears to have a lot of confusion on how many Zoloft tablets she is taking and when. Pt is out of medication and needs today. Called and spoke with pt. Pt states several times that she has only been taking 1 tablet once a day. Pt read off the bottle that they are 50 mg tablets. Pt read directions to nurse and states that she has not been taking them at bedtime and has only been taking 1 tablet in the morning. Confirmed this with her several times. Pt states she took her last 50 mg tablet this morning at 8 am. In looking at pt's script from 11/17/23, pt was to be taking 2 tablets daily at bedtime. The script was for 90 tablets with 1 refill. Called [facility] and spoke with pharmacist Camilla. Confirmed with her the last time that the patient picked up her prescription. She states pt picked up her refill on 01/11 which would have been a 45 day supply. Since pt states she is out of medication, it appears pt had to be taking more than 1 tablet daily. Per Camilla, pt had told pharmacist on 03/01 that she was taking 150 mg daily which would be 3 of the 50 mg tablets. Called pt back a second time to confirm with her how she is taking her medication. Now pt states that sometimes she forgets to take the Zoloft in the morning so then she will take 2 tablets at bedtime. Asked pt to confirm date on the current bottle she has. Pt states the date is 07/09/23 and prescription number of [id number]. Pt states that sometimes she will empty her pills from a new bottle to an old bottle which would explain the June date. Asked pt to look and see if she has any other bottles of Zoloft. Pt denies. After more discussion, pt states that she has been taking 2 tablets at bedtime for the last 1-2 weeks. Then pt stated she took 1 tablet this morning at 8 am. A couple minutes later, she states she takes 1 in the morning and sometimes 1 at night. Asked about reporting to the pharmacist that she was taking 150 mg which would be 3 pills. She states that she told him Dr. Hernandez was going to increase her to 150 mg. Asked pt if she has a daily pill container that she uses. She states that she does but she doesn't put the Zoloft in it. Encouraged that she will need to put her tablets in with the other nighttime pills so that she takes it correctly. Verbalizes understanding. Spoke with pt about her confusion on how she is taking her Zoloft and possibly her other medications. Pt agrees that she is confused. Spoke with pt about having family help her fill her pill container on Sundays. Pt agreeable and pt gives permission to speak with her daughter Lexy, Jesus, [id number] Owen and son Bravo. Nurse concerned about pt so asked if it was okay to contact her daughter Lexy and talk with her about her confusion with medications. Ica okay with speaking with her. She also asked that I call her daughter in law Owen as she lives closer and will probably be the one to help with her pills on Monday. Called and spoke with both daughter Lexy and daughter in law Owen about pt's confusion on medications. They will start helping pt with her medications. Daughter Lexy given pt's next appt date and time so that she can come to appt. Also instructed Lexy to contact us if she starts noticing more confusion. Verbalized understanding. Vini Hernandez DO 03/05/2024 4:22 PM Signed The following approved medication requests have been transmitted electronically. Requested Prescriptions Signed Prescriptions Disp Refills sertraline (ZOLOFT) 100 mg tablet 135 tablet 1 Sig: Take 1.5 tablets daily at bedtime Authorizing Provider: VINI HERNANDEZ DO Detwiler-Green, Susan LPN 03/05/2024 4:45 PM Signed Tried to inform no answer or VM. Kumar Kinney Sarah 03/05/2024 4:49 PM Signed Patient returned phone call. Please call her on her 's cell: [phone]. Randy Aguilera LPN 03/06/2024 5:57 PM Signed Detailed message left on husbands VM. Allergies As of Date: 02/29/2024 Noted Allergy Reaction MORPHINE 03/03/2014 1 - Mental Status Change 5 - Intolerance 8 - GI Upset Date Reviewed: 02/26/2024 Reviewed by: Randy Aguilera LPN - Fully Assessed Reason for Visit: clarify directions on Sertraline 100 mg rx [Other] Visit Diagnosis:Dysthymia [F34.1] Order(s):sertraline (ZOLOFT) 100 mg tabletTake 1.5 tablets daily at bedtimeDisp: 135 tabletRfl: 1 Prescriptions as of 03/06/2024 - sertraline (ZOLOFT) 100 mg tablet Take 1.5 tablets daily at bedtime - amLODIPine (NORVASC) 5 mg tablet Take 1 tablet by mouth once daily. - levothyroxine (SYNTHROID) 112 mcg tablet Take 1 tablet by mouth daily Take on empty stomach. For thyroid. - pravastatin (PRAVACHOL) 40 mg tablet Take 1 tablet by mouth daily at bedtime. - losartan (COZAAR) 50 mg tablet Take 1 tablet by mouth once daily. - sertraline (ZOLOFT) 50 mg tablet Take 1 tablet PO daily at bedtime x 1 week then increase to 2 tablets PO daily at bedtime - metoprolol tartrate, short acting, (LOPRESSOR) 50 mg tablet Take 1 tablet by mouth two times a day. - Blood Pressure Test Kit-Large 1 Each once daily. - vitamin b complex tab Take 1 tablet by mouth once daily. - calcium carbonate/vitamin D3 (CALCIUM 600 + D,3, ORAL) Take 1 tablet by mouth once daily. Meds Comments as of 03/03/2011: Problem List As Of Date 02/29/2024 Noted Resolved Hypothyroidism [E03.9] Hyperlipidemia [E78.5] BONE AND CARTILAGE DIS NOS [M89.9, M94.9] OSTEOARTHROS NOS-OTHER SITE [M19.90] BPPV (benign paroxysmal positional vertigo), un*02/15/2007 Malignant neoplasm of central portion of left f*11/27/2015 Unspecified hypothyroidism [E03.9] Other and unspecified hyperlipidemia [E78.5] Bilateral malignant neoplasm of central portion* Microcalcifications of the breast [R92.0] 11/24/2015 Osteopenia of neck of femur [M85.859] 01/2022 Dysthymia [F34.1] 08/24/2016 Malignant neoplasm of central portion of left b*11/15/2016 Dyslipidemia [E78.5] 08/29/2017 HYPERTENSION BENIGN [I10] 08/29/2017 Obesity, Class I, BMI 30-34.9 [E66.811] 08/29/2017 Vitamin D deficiency [E55.9] 02/28/2018 Hypothyroidism, acquired [E03.9] 02/28/2018 Fatigue [R53.83] 02/28/2018 Hypertensive crisis [I16.9] 06/12/2019 Dizziness [R42] 06/12/2019 Vertigo [R42] 06/12/2019 Uncomplicated alcohol dependence (HCC) [F10.20] 01/20/2021 Tremor [R25.1] 01/20/2021 PALMA (generalized anxiety disorder) [F41.1] 01/20/2021 Osteopenia, senile [M85.80] 12/15/2021 Anxious mood [F41.9] 12/15/2021 Hyperkalemia [E87.5] 08/15/2022 Vitamin B12 deficiency [E53.8] 08/15/2022 Hyperglycemia [R73.9] 08/15/2022 Personal history of alcoholism (HCC) [F10.21] 08/15/2022 Depression, recurrent (HCC) [F33.9] 08/15/2022 Prescriptions ordered this encounter Disp Refills Start End SERTRALINE 100 MG TABLET 135 * 1 03/05/2024 Sig: Take 1.5 tablets daily at bedtime Medications Discontinued During This Encounter Prescriptions - sertraline (ZOLOFT) 100 mg tablet (Discontinued) Take 1.5 tablets by mouth once daily. Take 1 tablet PO daily at bedtime x 1 week then increase to 2 tablets PO daily at bedtime Encounter Status:Closed by RANDY AGUILERA LPN on 03/05/24 CNPN Observed: 02/28/2024 12:00 AM Status: COMPLETED Source: [facility] Telephone ([employer] [facility]) HARJIT BRADSHAW ([id number]) 1940 F Date Time Provider Department 02/28/24 [facility] During your visit today, we recorded the following information about you: Nayely Tiarra 02/28/2024 2:49 PM Signed Ica is calling Vini Hernandez DO today. Patient was at [facility] today and they have no record of receiving two of the medications sent on Monday sertraline (ZOLOFT) 100 mg tablet amLODIPine (NORVASC) 5 mg tablet Please contact pharmacy or send new scripts. Deana Ferreira MA 02/28/2024 3:01 PM Signed Called and spoke to [facility] in [place] they have both prescription on file and will get ready for picker/puller. Deana Ferreira MA Allergies As of Date: 02/28/2024 Noted Allergy Reaction MORPHINE 03/03/2014 1 - Mental Status Change 5 - Intolerance 8 - GI Upset Date Reviewed: 02/26/2024 Reviewed by: Randy Aguilera LPN - Fully Assessed Reason for Visit: Medication Problem [65] Prescriptions as of 02/28/2024 - amLODIPine (NORVASC) 5 mg tablet Take 1 tablet by mouth once daily. - levothyroxine (SYNTHROID) 112 mcg tablet Take 1 tablet by mouth daily Take on empty stomach. For thyroid. - pravastatin (PRAVACHOL) 40 mg tablet Take 1 tablet by mouth daily at bedtime. - sertraline (ZOLOFT) 100 mg tablet Take 1.5 tablets by mouth once daily. Take 1 tablet PO daily at bedtime x 1 week then increase to 2 tablets PO daily at bedtime - losartan (COZAAR) 50 mg tablet Take 1 tablet by mouth once daily. - sertraline (ZOLOFT) 50 mg tablet Take 1 tablet PO daily at bedtime x 1 week then increase to 2 tablets PO daily at bedtime - metoprolol tartrate, short acting, (LOPRESSOR) 50 mg tablet Take 1 tablet by mouth two times a day. - Blood Pressure Test Kit-Large 1 Each once daily. - vitamin b complex tab Take 1 tablet by mouth once daily. - calcium carbonate/vitamin D3 (CALCIUM 600 + D,3, ORAL) Take 1 tablet by mouth once daily. Meds Comments as of 03/03/2011: Problem List As Of Date 02/28/2024 Noted Resolved Hypothyroidism [E03.9] Hyperlipidemia [E78.5] BONE AND CARTILAGE DIS NOS [M89.9, M94.9] OSTEOARTHROS NOS-OTHER SITE [M19.90] BPPV (benign paroxysmal positional vertigo), un*02/15/2007 Malignant neoplasm of central portion of left f*11/27/2015 Unspecified hypothyroidism [E03.9] Other and unspecified hyperlipidemia [E78.5] Bilateral malignant neoplasm of central portion* Microcalcifications of the breast [R92.0] 11/24/2015 Osteopenia of neck of femur [M85.859] 01/2022 Dysthymia [F34.1] 08/24/2016 Malignant neoplasm of central portion of left b*11/15/2016 Dyslipidemia [E78.5] 08/29/2017 HYPERTENSION BENIGN [I10] 08/29/2017 Obesity, Class I, BMI 30-34.9 [E66.811] 08/29/2017 Vitamin D deficiency [E55.9] 02/28/2018 Hypothyroidism, acquired [E03.9] 02/28/2018 Fatigue [R53.83] 02/28/2018 Hypertensive crisis [I16.9] 06/12/2019 Dizziness [R42] 06/12/2019 Vertigo [R42] 06/12/2019 Uncomplicated alcohol dependence (HCC) [F10.20] 01/20/2021 Tremor [R25.1] 01/20/2021 PALMA (generalized anxiety disorder) [F41.1] 01/20/2021 Osteopenia, senile [M85.80] 12/15/2021 Anxious mood [F41.9] 12/15/2021 Hyperkalemia [E87.5] 08/15/2022 Vitamin B12 deficiency [E53.8] 08/15/2022 Hyperglycemia [R73.9] 08/15/2022 Personal history of alcoholism (HCC) [F10.21] 08/15/2022 Depression, recurrent (HCC) [F33.9] 08/15/2022 Encounter Status:Closed by DEANA FERREIRA on 02/28/24 PROGRESS Observed: 02/26/2024 3:47 PM Status: COMPLETED Source: [facility] HNO ID: [id number] Author: VINI HERNANDEZ, DO Service: ? Author Type: Physician Type: Progress Notes Filed: 02/26/2024 15:57 Note Text: CC: Harjit Senia Bradshaw is a 83 year old female who presents to the office for follow up HPI: HPL, had recent fasting labs Mood, overall doing okay, previously she felt her depressed mood an anxiety symptoms are much better but does feel she is struggling to manage her 's poor health worse and she is more irritable and angry at times, wondering if her zoloft can be adjusted. No SI or HI concerns. Feels it has improved since getting off alcohol and now has been sober longer/months of time. Arthritis, stable, trying to do more exercises at home to help with her strength and balance. She has been starting to use a stepper exercise machine to help with balance. Hypothyroidism, taking her levothyroxine hormone medication, no concerns. Has some chronic fatigue symptoms PAST MEDICAL HISTORY Diagnosis Date Anxiety Bilateral malignant neoplasm of central portion of breast in female (HCC) Disorder of bone and cartilage, unspecified Microcalcifications of the breast 11/24/2015 left Osteoarthrosis, unspecified whether generalized or localized, other specified sites knees Osteopenia of neck of femur 01/2022 Other and unspecified hyperlipidemia Unspecified hypothyroidism PAST SURGICAL HISTORY Procedure Laterality Date ARTHROPLASTY TOTAL SHOULDER Right 11/28/2017 Dr. David Nieto; R reverse total shoulder replacment ARTHROPLASTY TOTAL SHOULDER Left 01/09/2019 Dr. David Nieto @ [facility]; L reverse total shoulder replacement; L distal clavicle resection ARTHRP KNE CONDYLEANDPLATU MEDIALANDLAT COMPARTMENTS 2008 Knee replacement, total, bilateral BX BREAST W/DEVICE 1ST LESION STEREOTACTIC GUID Left 11/24/2015 BX/EXC LYMPH NODE OPEN DEEP AXILLARY NODE Left 12/07/2015 CHOLECYSTECTOMY Cholecystectomy INJ RADIOACTIVE TRACER FOR ID OF SENTINEL NODE 12/07/2015 MASTECTOMY, SIMPLE, COMPLETE Left 12/07/2015 TONSILLECTOMY HX Current Outpatient Medications Medication Sig amLODIPine (NORVASC) 5 mg tablet Take 1 tablet by mouth once daily. levothyroxine (SYNTHROID) 112 mcg tablet Take 1 tablet by mouth daily Take on empty stomach. For thyroid. pravastatin (PRAVACHOL) 40 mg tablet Take 1 tablet by mouth daily at bedtime. sertraline (ZOLOFT) 100 mg tablet Take 1.5 tablets by mouth once daily. Take 1 tablet PO daily at bedtime x 1 week then increase to 2 tablets PO daily at bedtime losartan (COZAAR) 50 mg tablet Take 1 tablet by mouth once daily. sertraline (ZOLOFT) 50 mg tablet Take 1 tablet PO daily at bedtime x 1 week then increase to 2 tablets PO daily at bedtime metoprolol tartrate, short acting, (LOPRESSOR) 50 mg tablet Take 1 tablet by mouth two times a day. Blood Pressure Test Kit-Large 1 Each once daily. vitamin b complex tab Take 1 tablet by mouth once daily. calcium carbonate/vitamin D3 (CALCIUM 600 + D,3, ORAL) Take 1 tablet by mouth once daily. No current facility-administered medications for this visit. ALLERGIES Allergen Reactions Morphine Mental Status Change, Intolerance, GI Upset Social History Tobacco Use Smoking status: Never Smokeless tobacco: Never Vaping Use Vaping status: Never Used Substance Use Topics Alcohol use: Not Currently Comment: couple times a week Drug use: No ROS: See HPI PE: BP 120/80 Pulse 60 Temp (Src) 97 (Left Tympanic) Resp 16 Wt 169 lb (76.7kg) Gen: AANDOX3, NAD, non-toxic appearing, hard of hearing, wearing glasses, pleasant, well dressed HEENT: PERRLA, EOMs intact b/l, nares without drainage, pharynx without erythema, exudate, lesions, or drainage. Uvula midline. Neck: No LAD, no thyromegaly, no meningismus. CV: RRR, no murmur, normal s1s2 Lungs: CTA b/l, no wheezing Skin: No rashes, lesions, or wounds on exposed skin. No edema, normal pulses ASSESSMENT/PLAN: 1. Hypothyroidism, acquired - ICD9: 244.9, ICD10: E03.9 (primary diagnosis) - Instructed patient on importance of taking on an empty stomach either first thing in the morning or at bedtime. - continue current dose of Synthroid - THYROID STIMULATING HORMONE - T4 FREE/FREE THYROXINE - COMPREHENSIVE METABOLIC PANEL - COMPLETE BLOOD COUNT 2. HYPERTENSION BENIGN - ICD9: 401.1, ICD10: I10 - Controlled - Continue current medications - Recommend home blood pressure monitoring, to bring results to next visit - Encouraged sodium restriction, DASH or Mediterranean diet - Recommend regular aerobic exercise - Discussed need for and benefit of weight loss. BMI 31.50 kg/(m2) - AMLODIPINE 5 MG TABLET 3. Need for influenza vaccination - ICD9: V04.81, ICD10: Z23 - INFLUENZA VACCINE, PRSV FREE, AGE 65+ YR, HIGH DOSE, TRIVALENT (FLUZONE HIGH-DOSE) 4. Dyslipidemia - ICD9: 272.4, ICD10: E78.5 - Improving control - Continue current medications - Counseled on healthy diet and regular exercise - PRAVASTATIN 40 MG TABLET - LIPID PANEL BASIC 5. Dysthymia - ICD9: 300.4, ICD10: F34.1 Increase dose of zoloft as ordered No SI or HI - SERTRALINE 100 MG TABLET 6. Need for COVID-19 vaccine - ICD9: V04.89, ICD10: Z23 - [employer] COVID-19 VACCINE AGE 12+ YR ([facility]) 7. Depression, recurrent (HCC) - ICD9: 296.30, ICD10: F33.9 See above Increase dose of zoloft 8. Vitamin B12 deficiency - ICD9: 266.2, ICD10: E53.8 Start on oral supplement - VITAMIN B12 9. Vitamin D deficiency - ICD9: 268.9, ICD10: E55.9 Continue supplement Levels are stable - VITAMIN D 25 HYDROXY 10. Hyperglycemia - ICD9: 790.29, ICD10: R73.9 Recheck labs - HEMOGLOBIN A1C 11. Fatigue, unspecified type - ICD9: 780.79, ICD10: R53.83 Labs as ordered. Vini Hernandez, DO Return if no improvement. Follow up with Vini Hernandez DO. To ER if develops chest pain, shortness of breath. Discussed risks, benefits, alternatives, and potential side effects of medications. Patient/Guardian expressed understanding and agreed with the plan. See patient instructions. Vini Hernandez DO [address] [place] [address] CNOV Observed: 02/26/2024 10:40 AM Status: COMPLETED Source: [facility] Office Visit ([facility]) AUGUSTINEHARJIT Senia ([id number]) 1940 F Date Time Provider Department 02/26/24 10:40 AM [facility] During your visit today, we recorded the following information about you: Temperature Pulse Respiration Blood pressure 97 degrees 60/minute 16/minute 120/80 Weight 76.7 kg Vini Hernandez DO 02/26/2024 11:08 AM Signed Magnesium glycinate or gluconate 400-500 mg in the evening to help symptoms Vitamin B12 once a day 1000 mcg a day in the AM Vini Hernandez DO 02/26/2024 3:57 PM Signed CC: Harjit Conn Augustine is a 83 year old female who presents to the office for follow up HPI: HPL, had recent fasting labs Mood, overall doing okay, previously she felt her depressed mood an anxiety symptoms are much better but does feel she is struggling to manage her 's poor health worse and she is more irritable and angry at times, wondering if her zoloft can be adjusted. No SI or HI concerns. Feels it has improved since getting off alcohol and now has been sober longer/months of time. Arthritis, stable, trying to do more exercises at home to help with her strength and balance. She has been starting to use a stepper exercise machine to help with balance. Hypothyroidism, taking her levothyroxine hormone medication, no concerns. Has some chronic fatigue symptoms PAST MEDICAL HISTORY Diagnosis Date Anxiety Bilateral malignant neoplasm of central portion of breast in female (HCC) Disorder of bone and cartilage, unspecified Microcalcifications of the breast 11/24/2015 left Osteoarthrosis, unspecified whether generalized or localized, other specified sites knees Osteopenia of neck of femur 01/2022 Other and unspecified hyperlipidemia Unspecified hypothyroidism PAST SURGICAL HISTORY Procedure Laterality Date ARTHROPLASTY TOTAL SHOULDER Right 11/28/2017 Dr. David Nieto; R reverse total shoulder replacment ARTHROPLASTY TOTAL SHOULDER Left 01/09/2019 Dr. David Nieto @ [facility]; L reverse total shoulder replacement; L distal clavicle resection ARTHRP KNE CONDYLEANDPLATU MEDIALANDLAT COMPARTMENTS 2008 Knee replacement, total, bilateral BX BREAST W/DEVICE 1ST LESION STEREOTACTIC GUID Left 11/24/2015 BX/EXC LYMPH NODE OPEN DEEP AXILLARY NODE Left 12/07/2015 CHOLECYSTECTOMY Cholecystectomy INJ RADIOACTIVE TRACER FOR ID OF SENTINEL NODE 12/07/2015 MASTECTOMY, SIMPLE, COMPLETE Left 12/07/2015 TONSILLECTOMY HX Current Outpatient Medications Medication Sig amLODIPine (NORVASC) 5 mg tablet Take 1 tablet by mouth once daily. levothyroxine (SYNTHROID) 112 mcg tablet Take 1 tablet by mouth daily Take on empty stomach. For thyroid. pravastatin (PRAVACHOL) 40 mg tablet Take 1 tablet by mouth daily at bedtime. sertraline (ZOLOFT) 100 mg tablet Take 1.5 tablets by mouth once daily. Take 1 tablet PO daily at bedtime x 1 week then increase to 2 tablets PO daily at bedtime losartan (COZAAR) 50 mg tablet Take 1 tablet by mouth once daily. sertraline (ZOLOFT) 50 mg tablet Take 1 tablet PO daily at bedtime x 1 week then increase to 2 tablets PO daily at bedtime metoprolol tartrate, short acting, (LOPRESSOR) 50 mg tablet Take 1 tablet by mouth two times a day. Blood Pressure Test Kit-Large 1 Each once daily. vitamin b complex tab Take 1 tablet by mouth once daily. calcium carbonate/vitamin D3 (CALCIUM 600 + D,3, ORAL) Take 1 tablet by mouth once daily. No current facility-administered medications for this visit. ALLERGIES Allergen Reactions Morphine Mental Status Change, Intolerance, GI Upset Social History Tobacco Use Smoking status: Never Smokeless tobacco: Never Vaping Use Vaping status: Never Used Substance Use Topics Alcohol use: Not Currently Comment: couple times a week Drug use: No ROS: See HPI PE: BP 120/80 Pulse 60 Temp (Src) 97 (Left Tympanic) Resp 16 Wt 169 lb (76.7kg) Gen: AANDOX3, NAD, non-toxic appearing, hard of hearing, wearing glasses, pleasant, well dressed HEENT: PERRLA, EOMs intact b/l, nares without drainage, pharynx without erythema, exudate, lesions, or drainage. Uvula midline. Neck: No LAD, no thyromegaly, no meningismus. CV: RRR, no murmur, normal s1s2 Lungs: CTA b/l, no wheezing Skin: No rashes, lesions, or wounds on exposed skin. No edema, normal pulses ASSESSMENT/PLAN: 1. Hypothyroidism, acquired - ICD9: 244.9, ICD10: E03.9 (primary diagnosis) - Instructed patient on importance of taking on an empty stomach either first thing in the morning or at bedtime. - continue current dose of Synthroid - THYROID STIMULATING HORMONE - T4 FREE/FREE THYROXINE - COMPREHENSIVE METABOLIC PANEL - COMPLETE BLOOD COUNT 2. HYPERTENSION BENIGN - ICD9: 401.1, ICD10: I10 - Controlled - Continue current medications - Recommend home blood pressure monitoring, to bring results to next visit - Encouraged sodium restriction, DASH or Mediterranean diet - Recommend regular aerobic exercise - Discussed need for and benefit of weight loss. BMI 31.50 kg/(m2) - AMLODIPINE 5 MG TABLET 3. Need for influenza vaccination - ICD9: V04.81, ICD10: Z23 - INFLUENZA VACCINE, PRSV FREE, AGE 65+ YR, HIGH DOSE, TRIVALENT (FLUZONE HIGH-DOSE) 4. Dyslipidemia - ICD9: 272.4, ICD10: E78.5 - Improving control - Continue current medications - Counseled on healthy diet and regular exercise - PRAVASTATIN 40 MG TABLET - LIPID PANEL BASIC 5. Dysthymia - ICD9: 300.4, ICD10: F34.1 Increase dose of zoloft as ordered No SI or HI - SERTRALINE 100 MG TABLET 6. Need for COVID-19 vaccine - ICD9: V04.89, ICD10: Z23 - [employer] COVID-19 VACCINE AGE 12+ YR ([facility]) 7. Depression, recurrent (HCC) - ICD9: 296.30, ICD10: F33.9 See above Increase dose of zoloft 8. Vitamin B12 deficiency - ICD9: 266.2, ICD10: E53.8 Start on oral supplement - VITAMIN B12 9. Vitamin D deficiency - ICD9: 268.9, ICD10: E55.9 Continue supplement Levels are stable - VITAMIN D 25 HYDROXY 10. Hyperglycemia - ICD9: 790.29, ICD10: R73.9 Recheck labs - HEMOGLOBIN A1C 11. Fatigue, unspecified type - ICD9: 780.79, ICD10: R53.83 Labs as ordered. Vini Hernandez DO Return if no improvement. Follow up with Vini Hernandez DO. To ER if develops chest pain, shortness of breath. Discussed risks, benefits, alternatives, and potential side effects of medications. Patient/Guardian expressed understanding and agreed with the plan. See patient instructions. Vini Hernandez DO [address] [place] [address] Referring Provider: SELF [[id number]] Allergies As of Date: 02/26/2024 Noted Allergy Reaction MORPHINE 03/03/2014 1 - Mental Status Change 5 - Intolerance 8 - GI Upset Date Reviewed: 02/26/2024 Reviewed by: Randy Aguilera LPN - Fully Assessed Reason for Visit: 6 Month Exam [189] Immunizations [194] Cmt: Flu vaccination Primary Visit Diagnosis:Hypothyroidism, acquired [E03.9] Other Visit Diagnoses:HYPERTENSION BENIGN [I10] Need for influenza vaccination [Z23] Dyslipidemia [E78.5] Dysthymia [F34.1] Need for COVID-19 vaccine [Z23] Depression, recurrent (HCC) [F33.9] Vitamin B12 deficiency [E53.8] Vitamin D deficiency [E55.9] Hyperglycemia [R73.9] Fatigue, unspecified type [R53.83] Order(s):INFLUENZA VACCINE, PRSV FREE, AGE 65+ YR, HIGH DOSE, TRIVALENT (FLUZONE HIGH-DOSE) [[id number]] Order #: [id number] amLODIPine (NORVASC) 5 mg tabletTake 1 tablet by mouth once daily.Disp: 90 tabletRfl: 1 levothyroxine (SYNTHROID) 112 mcg tabletTake 1 tablet by mouth daily Take on empty stomach. For thyroid.Disp: 90 tabletRfl: 1 [employer] COVID-19 VACCINE AGE 12+ YR ([facility]) [[id number]] Order #: [id number] pravastatin (PRAVACHOL) 40 mg tabletTake 1 tablet by mouth daily at bedtime.Disp: 90 tabletRfl: 1 sertraline (ZOLOFT) 100 mg tabletTake 1.5 tablets by mouth once daily. Take 1 tablet PO daily at bedtime x 1 week then increase to 2 tablets PO daily at bedtimeDisp: 135 tabletRfl: 1 THYROID STIMULATING HORMONE [SQTSH] Order #: [id number] FUTURE T4 FREE/FREE THYROXINE [SQFT4] Order #: [id number] FUTURE COMPREHENSIVE METABOLIC PANEL [SQCMP] Order #: [id number] FUTURE COMPLETE BLOOD COUNT [SQCBC] Order #: [id number] FUTURE HEMOGLOBIN A1C [[id number]] Order #: [id number] FUTURE LIPID PANEL BASIC [SQLIPB] Order #: [id number] FUTURE VITAMIN D 25 HYDROXY [SQVITD] Order #: [id number] FUTURE VITAMIN B12 [SQB12] Order #: [id number] FUTURE Prescriptions as of 02/26/2024 - amLODIPine (NORVASC) 5 mg tablet Take 1 tablet by mouth once daily. - levothyroxine (SYNTHROID) 112 mcg tablet Take 1 tablet by mouth daily Take on empty stomach. For thyroid. - pravastatin (PRAVACHOL) 40 mg tablet Take 1 tablet by mouth daily at bedtime. - sertraline (ZOLOFT) 100 mg tablet Take 1.5 tablets by mouth once daily. Take 1 tablet PO daily at bedtime x 1 week then increase to 2 tablets PO daily at bedtime - losartan (COZAAR) 50 mg tablet Take 1 tablet by mouth once daily. - sertraline (ZOLOFT) 50 mg tablet Take 1 tablet PO daily at bedtime x 1 week then increase to 2 tablets PO daily at bedtime - metoprolol tartrate, short acting, (LOPRESSOR) 50 mg tablet Take 1 tablet by mouth two times a day. - Blood Pressure Test Kit-Large 1 Each once daily. - vitamin b complex tab Take 1 tablet by mouth once daily. - calcium carbonate/vitamin D3 (CALCIUM 600 + D,3, ORAL) Take 1 tablet by mouth once daily. Meds Comments as of 03/03/2011: Problem List As Of Date 02/26/2024 Noted Resolved Hypothyroidism [E03.9] Hyperlipidemia [E78.5] BONE AND CARTILAGE DIS NOS [M89.9, M94.9] OSTEOARTHROS NOS-OTHER SITE [M19.90] BPPV (benign paroxysmal positional vertigo), un*02/15/2007 Malignant neoplasm of central portion of left f*11/27/2015 Unspecified hypothyroidism [E03.9] Other and unspecified hyperlipidemia [E78.5] Bilateral malignant neoplasm of central portion* Microcalcifications of the breast [R92.0] 11/24/2015 Osteopenia of neck of femur [M85.859] 01/2022 Dysthymia [F34.1] 08/24/2016 Malignant neoplasm of central portion of left b*11/15/2016 Dyslipidemia [E78.5] 08/29/2017 HYPERTENSION BENIGN [I10] 08/29/2017 Obesity, Class I, BMI 30-34.9 [E66.811] 08/29/2017 Vitamin D deficiency [E55.9] 02/28/2018 Hypothyroidism, acquired [E03.9] 02/28/2018 Fatigue [R53.83] 02/28/2018 Hypertensive crisis [I16.9] 06/12/2019 Dizziness [R42] 06/12/2019 Vertigo [R42] 06/12/2019 Uncomplicated alcohol dependence (HCC) [F10.20] 01/20/2021 Tremor [R25.1] 01/20/2021 PALMA (generalized anxiety disorder) [F41.1] 01/20/2021 Osteopenia, senile [M85.80] 12/15/2021 Anxious mood [F41.9] 12/15/2021 Hyperkalemia [E87.5] 08/15/2022 Vitamin B12 deficiency [E53.8] 08/15/2022 Hyperglycemia [R73.9] 08/15/2022 Personal history of alcoholism (HCC) [F10.21] 08/15/2022 Depression, recurrent (HCC) [F33.9] 08/15/2022 Other instructions from your clinician: Magnesium glycinate or gluconate 400-500 mg in the evening to help symptoms Vitamin B12 once a day 1000 mcg a day in the AM Prescriptions ordered this encounter Disp Refills Start End AMLODIPINE 5 MG TABLET 90 t* 1 02/26/2024 Route: ORAL Sig: Take 1 tablet by mouth once daily. LEVOTHYROXINE 112 MCG TABLET 90 t* 1 02/26/2024 Sig: Take 1 tablet by mouth daily Take on empty stomach. For thyroid. PRAVASTATIN 40 MG TABLET 90 t* 1 02/26/2024 Route: ORAL Sig: Take 1 tablet by mouth daily at bedtime. SERTRALINE 100 MG TABLET 135 * 1 02/26/2024 Route: ORAL Sig: Take 1.5 tablets by mouth once daily. Take 1 tablet PO daily at bedtime x 1 week then increase to 2 tablets PO daily at bedtime Medications Discontinued During This Encounter Prescriptions - pravastatin (PRAVACHOL) 40 mg tablet (Discontinued) Take 1 tablet by mouth daily at bedtime. - amLODIPine (NORVASC) 5 mg tablet (Discontinued) Take 1 tablet by mouth once daily. - levothyroxine (SYNTHROID) 112 mcg tablet (Discontinued) Take 1 tablet by mouth daily Take on empty stomach. For thyroid. Encounter Status:Closed by VINI HERNANDEZ on 02/26/24 COMP METAB 2000 PNL SERPL Collected: 10:38 AM Status: F Source: [facility] Order Comment: Specimen Type : BLOOD SPECIMEN Ordering Facility: [facility] Address: [address] [place] [address] TYPE CODE TESTS RESULT OUT OF RANGE REFERENCE UNITS LAB 2885-2(LOINC) Prot SerPl-mCnc 6.8 6.3-8.0 g/dL LAB 1751-7(LOINC) Albumin SerPl-mCnc 4.4 3.9-4.9 g/dL LAB 83518-8(LOINC) Calcium SerPl-mCnc 9.3 8.5-10.2 mg/dL LAB 1975-2(LOINC) Bilirub SerPl-mCnc 0.5 0.2-1.3 mg/dL LAB 6768-6(LOINC) ALP SerPl-cCnc 116 34-123 U/L LAB 1920-8(LOINC) AST SerPl-cCnc 21 13-35 U/L LAB 1742-6(LOINC) ALT SerPl-cCnc 15 7-38 U/L LAB 2345-7(LOINC) Glucose SerPl-mCnc 94 74-99 mg/dL Result Comment: The [place] Diabetes Association (ADA) provides guidance for cutoff values for fasting glucose and random glucose. The ADA defines fasting as no caloric intake for at least 8 hours. Fasting plasma glucose results between 100 to 125 mg/dL indicate increased risk for diabetes (prediabetes). Fasting plasma glucose results greater than or equal to 126 mg/dL meet the criteria for diagnosis of diabetes. In the absence of unequivocal hyperglycemia, results should be confirmed by repeat testing. In a patient with classic symptoms of hyperglycemia or hyperglycemic crisis, random plasma glucose results greater than or equal to 200 mg/dL meet the criteria for diagnosis of diabetes. Reference: Standards of Medical Care in Diabetes 2016, [place] Diabetes Association. Diabetes Care. 2016.39(Suppl 1). LAB 3094-0(LOINC) BUN SerPl-mCnc 17 7-21 mg/ dL LAB 2160-0(LOINC) Creat SerPl-mCnc 0.82 0.58-0.96 mg/dL LAB 2951-2(LOINC) Sodium SerPl-sCnc 139 136-144 mmol/L LAB 2823-3(LOINC) Potassium SerPl-sCnc 4.4 3.7-5.1 mmol/L LAB 2075-0(LOINC) Chloride SerPl-sCnc 102 98-107 mmol/L LAB 2028-9(LOINC) CO2 SerPl-sCnc 25 22-30 mmo l/L LAB 18052-4(LOINC) Anion Gap SerPl-sCnc 12 8-15 mmol/L LAB 37106-7(LOINC) Creatinine + eGFR Pnl SerPlBld 71 >=60 mL/min/1 .73m??? Result Comment: Estimated Gl omerular Filtration Rate (eGFR) is calculated using the 2020 CKD-EPI creatinine equation. This equation utilizes serum creatinine, sex, and age as parameters. The creatinine assay has traceable calibration to isotope dilution-mass spectrometry. Refer to KDIGO guidelines for clinical interpretation. In patients with unstable renal function, e.g. those with acute kidney injury, the eGFR may not accurately reflect actual GFR. Performed By: #### 3016-3, 2 4323-8, 77888-6, 3024-7 #### [facility] CLIA [id number] [address] [place], [place] [address] [place] [address] [place] LIPID 1996 PNL SERPL Collected: 024 10:38 AM Status: F Source: [facility] Order Comment: Specimen Type : BLOOD SPECIMEN Ordering Facility: [facility] Address: [address] [place] [address] TYPE CODE TESTS RESULT OUT OF RANGE REFERENCE UNITS LAB 2093-3(LOINC) Cholest SerPl-mCnc 252 High <200 mg/dL Result Comment: <200 mg/dL, Desirable 200-239 mg/dL, Borderline high >239 mg/dL, High LAB 2571-8(LOINC) Trigl SerPl-mCnc 91 <150 mg/dL Result Comment: <150 mg/dL, Normal 150-199 mg/dL, Borderline high 200-499 mg/dL, High >499 mg/dL, Very high LAB 2085-9(LOINC) HDLc SerPl-mCnc 100 >39 mg/dL Result Comment: 40-59 mg/dL, Acceptable >59 mg/dL, High: Negative risk factor for coronary heart disease <40 mg/dL, Low: Positive risk factor for coronary heart disease LAB 36292-1(LOINC) NonHDLc SerPl-mCnc 152 High <130 mg/dL Result Comment: <130 mg/dL, Optimal 130-159 mg/dL, Near optimal/above optimal 160-189 mg/dL, Borderline high 190-219 mg/dL, High >219 mg/dL, Very high Secondary prevention optimal non HDL Cholesterol levels are recommended to be <100 mg/dL LAB FT FASTING TIME 12 hrs LAB 20253-2(LOINC) VLDLc SerPl Calc-mCnc 18 <30 mg/dL LAB 9830-1(LOINC) Cholest/HDLc SerPl 2.52 <5.10 LAB 2089-1(LOINC) LDLc SerPl-mCnc 134 High <100 mg/dL Result Comment: <100 mg/dL, Optimal 100-129 mg/dL, Near optimal/above optimal 130-159 mg/dL, Borderline high 160-189 mg/dL, High >189 mg/dL, Very high Secondary prevention optimal LDL Cholesterol levels are recommended to be < 70 mg/dL LAB 11636-0(LOINC) LDLc/HDLc SerPl 1.34 <2.54 Result Comment: Reference: 1. National Cholesterol Education Program ATP III Guideline At-A-Glance Quick Desk Reference: National Heart, Lung, and Blood [place]. National Institutes of Health. 2001: NIH Publication No. 01-3305. 2. An International Atherosclerosis Society position paper: global recommendations for the management of dyslipidemia: executive summary, Atherosclerosis. 2014: 232(2):410-413. Performed By: #### 3016-3, 2 4323-8, 48603-6, 3024-7 #### [facility] CLIA [id number] [address] [place] [address] [place] T4 FREE SERPL-MCNC Collected: 4 10:38 AM Status: F Source: [facility] Order Comment: Specimen Type : BLOOD SPECIMEN Ordering Facility: [facility] Address: [address] [place] [address] TYPE CODE TESTS RESULT OUT OF RANGE REFERENCE UNITS LAB 3024-7(LOINC) T4 Free SerPl-mCnc 1.6 0.9-1.7 ng/dL Performed By: #### 3016-3, 2 4323-8, 44005-7, 3024-7 #### [facility] CLIA [id number] [address] [place] TSH SERPL-ACNC Collected: 4 10:38 AM Status: F Source: [facility] Comment: Specimen Type : BLOOD SPECIMEN Ordering Facility: [facility] Address: [address] [place] [address] TYPE CODE TESTS RESULT OUT OF RANGE REFERENCE UNITS LAB 3016-3(LOINC) TSH SerPl-aCnc 0.880 0.270-4.200 mIU/L Performed By: #### 3016-3, 2 4323-8, 04533-1, 3024-7 #### [facility] CLIA [id number] [address] [facility] [address] [address] [place] CBC W AUTO DIFF BLD Collected: 02/19/2024 10:38 AM S tatus: F Source: [facility] Order Comment: Specimen Type : BLOOD SPECIMEN Ordering Facility: [facility] Address: [address] [place] [address] TYPE CODE TESTS RESULT OUT OF RANGE REFERENCE UNITS LAB 6690-2([facility]) WBC # Bld Auto 7.13 3.70-11.00 k/uL LAB 789-8([facility]) RBC # Bld Auto 4.13 3.90-5.20 m/ uL LAB 718-7([facility]) Hgb Bld-mCnc 12.8 11.5-15.5 g/dL LAB 4544-3([facility]) Hct VFr Bld Auto 39.5 36.0-46.0 % LAB 787-2([facility]) MCV RBC Auto 95.6 80.0-100.0 fL LAB 785-6([facility]) MCH RBC Qn Auto 31.0 26.0-34.0 p g LAB 786-4([facility]) MCHC RBC Auto-mCnc 32.4 30.5-36.0 g/dL LAB 11363-3([facility]) RDW RBC-Rto 13.8 11.5-15.0 % LAB 777-3([facility]) Platelet # Bld Auto 262 150-400 k/uL LAB 33720-8([facility]) PMV Bld Auto 11.0 9.0-12.7 fL LAB 770-8([facility]) Neutrophils/leuk NFr Bld Auto 63.2 % LAB 751-8([facility]) Neutrophils # Bld Auto 4.50 1.45-7.50 k/uL LAB 736-9([facility]) Lymphocytes/leuk NFr Bld Auto 21.3 % LAB 731-0([facility]) Lymphocytes # Bld Auto 1.52 1.00-4.00 k/uL LAB 5905-5([facility]) Monocytes/leuk NFr Bld Auto 9.5 % LAB 742-7([facility]) Monocytes # Bld Auto 0.68 <0.87 k/uL LAB 713-8([facility]) Eosinophil/leuk NFr Bld Auto 4.6 % LAB 711-2([facility]) Eosinophil # Bld Auto 0.33 <0.46 k/uL LAB 706-2([facility]) Basophils/leuk NFr Bld Auto 1.0 % LAB 704-7([facility]) Basophils # Bld Auto 0.07 <0.11 k/uL LAB 72680-1([facility]) Imm Granulocytes/salvatore k NFr Bld Auto 0.4 % LAB 72474-4([facility]) Imm Granulocytes # Bld Auto 0.03 <0.10 k/uL LAB 42557-4([facility]) nRBC/100 WBC Bld-Rto 0.0 /100 WBC LAB 771-6([facility]) nRBC # Bld Auto <0.01 <0.01 k/u L LAB 14628-5([facility]) Differential method Bld Auto Performed By: #### 18609-5 # ### [facility] CLIA [id number] [address] [place] [address] [place] 25([place])D3 SERPL-MCNC Collected: 02/19/20 24 10:38 AM Status: F Source: [facility] Order Comment: Specimen Type : BLOOD SPECIMEN Ordering Facility: [facility] Address: [address] [place] [address] TYPE CODE TESTS RESULT OUT OF RANGE REFERENCE UNITS LAB 1988-([facility]) 25([place])D3 SerPl-mCnc 51.5 31.0-80.0 ng/mL Performed By: #### 3 ## ## [facility] CLIA [id number] [address] [place] [address] [place] VIT B12 SERPL-MCNC Collected: 4 10:38 AM Status: F Source: [facility] Order Comment: Specimen Type : BLOOD SPECIMEN Ordering Facility: [facility] Address: [address] [place] [address] TYPE CODE TESTS RESULT OUT OF RANGE REFERENCE UNITS LAB 2131-9([facility]) Vit B12 SerPl-mCnc 700 583-5251 pg/mL Performed By: #### 2131-9 ## ## [facility] CLIA [id number] [address] [place], [place] [address] [place] [address] [place] CNPN Observed: 02/09/2024 12:00 AM Status: COMPLETED Source: [facility] Telephone (FAMPWS) HARJIT BRADSHAW ([id number]) 1940 F Date Time Provider Department 02/09/24 VINI HERNANDEZ FAMPWS During your visit today, we recorded the following information about you: Jyoti Santoyo 02/09/2024 3:19 PM Signed Ica is calling Vini Hernandez DO today with concern regarding Lab Orders Patient would like to do lab work prior to upcoming appointment. Thank you. Patient has been identified by name and birthdate. Duration of symptoms: N/A Person calling: self Call patient at: at home [phone] (home) Was an appointment scheduled: No Closing statement: Results or non-symptom based questions: Thank you for calling [facility], your call will be returned within the next business day. Vini Peres DO 02/10/2024 12:35 PM Signed Orders placed for fasting labs Please inform patient DO Cortez Díaz Amanda, RN 02/12/2024 10:58 AM Signed Pt called and is notified of providers message and instructions. Pt voices understanding. Talia Mitchell RN Allergies As of Date: 02/09/2024 Noted Allergy Reaction MORPHINE 03/03/2014 1 - Mental Status Change 5 - Intolerance 8 - GI Upset Date Reviewed: 12/04/2023 Reviewed by: 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 APRN.POSITION CLASSIFIER - Fully Assessed Reason for Visit: Lab Orders [9088] Primary Visit Diagnosis:Hypothyroidism, acquired [E03.9] Other Visit Diagnoses:Dyslipidemia [E78.5] Vitamin D deficiency [E55.9] Vitamin B12 deficiency [E53.8] Order(s):COMPREHENSIVE METABOLIC PANEL [SQCMP] Order #: [id number] FUTURE COMPLETE BLOOD COUNT AND DIFFERENTIAL [SQCBCDIF] Order #: [id number] FUTURE LIPID PANEL BASIC [SQLIPB] Order #: [id number] FUTURE THYROID STIMULATING HORMONE [SQTSH] Order #: [id number] FUTURE T4 FREE/FREE THYROXINE [SQFT4] Order #: [id number] FUTURE VITAMIN D 25 HYDROXY [SQVITD] Order #: [id number] FUTURE VITAMIN B12 [SQB12] Order #: [id number] FUTURE Prescriptions as of 02/12/2024 - losartan (COZAAR) 50 mg tablet Take 1 tablet by mouth once daily. - sertraline (ZOLOFT) 50 mg tablet Take 1 tablet PO daily at bedtime x 1 week then increase to 2 tablets PO daily at bedtime - levothyroxine (SYNTHROID) 112 mcg tablet Take 1 tablet by mouth daily Take on empty stomach. For thyroid. - metoprolol tartrate, short acting, (LOPRESSOR) 50 mg tablet Take 1 tablet by mouth two times a day. - amLODIPine (NORVASC) 5 mg tablet Take 1 tablet by mouth once daily. - pravastatin (PRAVACHOL) 40 mg tablet Take 1 tablet by mouth daily at bedtime. - Blood Pressure Test Kit-Large 1 Each once daily. - vitamin b complex tab Take 1 tablet by mouth once daily. - calcium carbonate/vitamin D3 (CALCIUM 600 + D,3, ORAL) Take 1 tablet by mouth once daily. Meds Comments as of 03/03/2011: Problem List As Of Date 02/09/2024 Noted Resolved Hypothyroidism [E03.9] Hyperlipidemia [E78.5] BONE AND CARTILAGE DIS NOS [M89.9, M94.9] OSTEOARTHROS NOS-OTHER SITE [M19.90] BPPV (benign paroxysmal positional vertigo), un*02/15/2007 Malignant neoplasm of central portion of left f*11/27/2015 Unspecified hypothyroidism [E03.9] Other and unspecified hyperlipidemia [E78.5] Bilateral malignant neoplasm of central portion* Microcalcifications of the breast [R92.0] 11/24/2015 Osteopenia of neck of femur [M85.859] 01/2022 Dysthymia [F34.1] 08/24/2016 Malignant neoplasm of central portion of left b*11/15/2016 Dyslipidemia [E78.5] 08/29/2017 HYPERTENSION BENIGN [I10] 08/29/2017 Obesity, Class I, BMI 30-34.9 [E66.811] 08/29/2017 Vitamin D deficiency [E55.9] 02/28/2018 Hypothyroidism, acquired [E03.9] 02/28/2018 Fatigue [R53.83] 02/28/2018 Hypertensive crisis [I16.9] 06/12/2019 Dizziness [R42] 06/12/2019 Vertigo [R42] 06/12/2019 Uncomplicated alcohol dependence (HCC) [F10.20] 01/20/2021 Tremor [R25.1] 01/20/2021 PALMA (generalized anxiety disorder) [F41.1] 01/20/2021 Osteopenia, senile [M85.80] 12/15/2021 Anxious mood [F41.9] 12/15/2021 Hyperkalemia [E87.5] 08/15/2022 Vitamin B12 deficiency [E53.8] 08/15/2022 Hyperglycemia [R73.9] 08/15/2022 Personal history of alcoholism (HCC) [F10.21] 08/15/2022 Depression, recurrent (HCC) [F33.9] 08/15/2022 Encounter Status:Closed by TALIA MITCHELL on 02/12/24 PROGRESS Observed: 01/30/2024 2:03 PM Status: COMPLETED Source: [facility] ID: [id number] Author: OWEN JARVIS RN Service: ? Author Type: Registered Nurse Type: Progress Notes Filed: 01/30/2024 14:05 Note Text: CDM Telephonic Outreach Provider Action/FYI HTN, depression, breast cancer with mast, + for Covid in June Goal Pt would like to lose 10-15 pounds this year.Stay away from cookies, candies, and bread and will increase activity outside when the weather warms up, check BP at home 02/26/2024 10:40 AM Vini Hernandez, Family [facility] [place] 6 month follow up Contacted for: Routine Telephonic Outreach Contact made with patient: No, unable to leave message. Will reattempt call Owen Jarvis RN January 30, 2024 2:04 PM PROGRESS Observed: 01/27/2024 4:12 PM Status: COMPLETED Source: [facility] HNO ID: [id number] Author: OWEN JARVIS RN Service: ? Author Type: Registered Nurse Type: Progress Notes Filed: 01/27/2024 16:46 Note Text: CDM Telephonic Outreach Provider Action/FYI HTN, depression, breast cancer with mast, + for Covid in June Goal Pt would like to lose 10-15 pounds this year.Stay away from cookies, candies, and bread and will increase activity outside when the weather warms up, check BP at home 02/26/2024 10:40 AM Vini Hernandez DO Family Medicine [place] 6 month follow up Contacted for: Routine Telephonic Outreach Contact made with patient: No, unable to leave message. Will reattempt call Owen Jarvis RN January 27, 2024 4:44 PM CNPTOUTREACH Observed: 01/27/2024 12:00 AM Status: COMPLETED Source: [facility] Patient Outreach ([facility]) HARJIT BRADSHAW ([id number]) 1940 F Date Time Provider Department 01/27/24 OWEN JARVIS AMBG During your visit today, we recorded the following information about you: Owen Jarvis RN 01/27/2024 4:46 PM Signed CD Telephonic Outreach Provider Action/FYI HTN, depression, breast cancer with mast, + for Covid in June Goal Pt would like to lose 10-15 pounds this year.Stay away from cookies, candies, and bread and will increase activity outside when the weather warms up, check BP at home 02/26/2024 10:40 AM Vini Hernandez DO Family [facility] [place] 6 month follow up Contacted for: Routine Telephonic Outreach Contact made with patient: No, unable to leave message. Will reattempt call Owen Jarvis RN January 27, 2024 4:44 PM Owen Jarvis RN 01/30/2024 2:05 PM Signed CDM Telephonic Outreach Provider Action/FYI HTN, depression, breast cancer with mast, + for Covid in June Goal Pt would like to lose 10-15 pounds this year.Stay away from cookies, candies, and bread and will increase activity outside when the weather warms up, check BP at home 02/26/2024 10:40 AM Vini Hernandez DO Family [facility] [place] 6 month follow up Contacted for: Routine Telephonic Outreach Contact made with patient: No, unable to leave message. Will reattempt call Owen Jarvis RN January 30, 2024 2:04 PM Allergies As of Date: 01/27/2024 Noted Allergy Reaction MORPHINE 03/03/2014 1 - Mental Status Change 5 - Intolerance 8 - GI Upset Date Reviewed: 12/04/2023 Reviewed by: 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 APRN.POSITION CLASSIFIER - Fully Assessed Reason for Visit: community monitoring outreach [Other] Cmt: [facility] telephonic Prescriptions as of 01/30/2024 - sertraline (ZOLOFT) 50 mg tablet Take 1 tablet PO daily at bedtime x 1 week then increase to 2 tablets PO daily at bedtime - levothyroxine (SYNTHROID) 112 mcg tablet Take 1 tablet by mouth daily Take on empty stomach. For thyroid. - metoprolol tartrate, short acting, (LOPRESSOR) 50 mg tablet Take 1 tablet by mouth two times a day. - amLODIPine (NORVASC) 5 mg tablet Take 1 tablet by mouth once daily. - losartan (COZAAR) 50 mg tablet Take 1 tablet by mouth once daily. - pravastatin (PRAVACHOL) 40 mg tablet Take 1 tablet by mouth daily at bedtime. - Blood Pressure Test Kit-Large 1 Each once daily. - vitamin b complex tab Take 1 tablet by mouth once daily. - calcium carbonate/vitamin D3 (CALCIUM 600 + D,3, ORAL) Take 1 tablet by mouth once daily. Meds Comments as of 03/03/2011: Problem List As Of Date 01/27/2024 Noted Resolved Hypothyroidism [E03.9] Hyperlipidemia [E78.5] BONE AND CARTILAGE DIS NOS [M89.9, M94.9] OSTEOARTHROS NOS-OTHER SITE [M19.90] BPPV (benign paroxysmal positional vertigo), un*02/15/2007 Malignant neoplasm of central portion of left f*11/27/2015 Unspecified hypothyroidism [E03.9] Other and unspecified hyperlipidemia [E78.5] Bilateral malignant neoplasm of central portion* Microcalcifications of the breast [R92.0] 11/24/2015 Osteopenia of neck of femur [M85.859] 01/2022 Dysthymia [F34.1] 08/24/2016 Malignant neoplasm of central portion of left b*11/15/2016 Dyslipidemia [E78.5] 08/29/2017 HYPERTENSION BENIGN [I10] 08/29/2017 Obesity, Class I, BMI 30-34.9 [E66.811] 08/29/2017 Vitamin D deficiency [E55.9] 02/28/2018 Hypothyroidism, acquired [E03.9] 02/28/2018 Fatigue [R53.83] 02/28/2018 Hypertensive crisis [I16.9] 06/12/2019 Dizziness [R42] 06/12/2019 Vertigo [R42] 06/12/2019 Uncomplicated alcohol dependence (HCC) [F10.20] 01/20/2021 Tremor [R25.1] 01/20/2021 PALMA (generalized anxiety disorder) [F41.1] 01/20/2021 Osteopenia, senile [M85.80] 12/15/2021 Anxious mood [F41.9] 12/15/2021 Hyperkalemia [E87.5] 08/15/2022 Vitamin B12 deficiency [E53.8] 08/15/2022 Hyperglycemia [R73.9] 08/15/2022 Personal history of alcoholism (HCC) [F10.21] 08/15/2022 Depression, recurrent (HCC) [F33.9] 08/15/2022 Encounter Status:Closed by OWEN JARVIS on 01/27/24 ALLERGIES DATE TYPE / CODE NAME / CODE REACTION SEVERITY SOURCE 03/03/2014 DRUG INGREDI/[id number](S NOMED CT) MORPHINE Mental Chg [facility] ENCOUNTERS ADMIT/DISCHARGE ACCOUNT NUMBER ADMITTING ENCOUNTER CLASS LOC ATION SOURCE 01/10/2025 [id number] [facility] 10/10/2024/ 5 [id number] [facility]WOVL [facility] 09/16/2024/ 5 [id number] [facility]WOCA [facility] 09/14/2024/ 5 [id number] [facility] 08/29/2024/ 5 [id number] [facility] 08/28/2024/ 5 [id number] [facility] 5 [id number] [facility] 02/26/2024/ 4 [id number] [facility] 02/19/2024/ 4 [id number] [facility] PAYERS ENCOUNTER GUARANTOR PAYER SUBSCRIBER SOURCE 01/10/2025 Primary Insuranc e:MEDICARE A AND BPolicy Number: [id number] Date:4623-97-18Iajg Name:P ICA Senia FRARYDOB: [id number] [place] [address] [facility] 01/10/2025 Secondary Insura nce:UNITED HUNGARIAN SUPPLEMENTPolicy Number: [id number] Date:7071-30-71Ljnk Name:C ICA Senia FRARYDOB: [id number] [place] [address] [facility] 10/10/2024 Primary Insuranc e:MEDICARE A AND BPolicy Number: [id number] Date:0196-06-06Shnn Name:P ICA A FRARYDOB: [id number] 09/16/2024 Primary Insuranc e:MEDICARE A AND BPolicy Number: [id number] Date:9599-24-61Cpsy Name:P ICA A FRARYDOB: [id number] [address] 09/14/2024 Primary Insuranc e:MEDICARE A AND BPolicy Number: [id number] Date:2825-10-25Qljf Name:P ICA A FRARYDOB: [id number] [address] 08/29/2024 Primary Insuranc e:MEDICARE A AND BPolicy Number: [id number] Date:0846-01-79Nwgg Name:P ICA A FRARYDOB: [id number] [address] 08/28/2024 Primary Insuranc e:MEDICARE A AND BPolicy Number: [id number] Date:6185-85-53Wgch Name:P ICA A FRARYDOB: [id number] [address] 07/11/2024 Primary Insuranc e:MEDICARE A AND BPolicy Number: [id number] Date:6017-25-07Txdu Name:P ICA A FRARYDOB: [id number] [address] 02/26/2024 Primary Insuranc e:MEDICARE A AND BPolicy Number: [id number] Date:5760-36-68Zewd Name:P ICA A FRARYDOB: [id number] [address] 02/19/2024 Primary Insuranc e:MEDICARE A AND BPolicy Number: [id number] Date:7805-34-65Garv Name:Alberta HAYNES: [id number] [place] [address] [facility]
--- NOTE | 2025-01-13 18:47 | STRESSREP ---
Stress Test Report Pharmacologic myocardial perfusion stress test. 84-year-old lady with a history of dyspnea on exertion. Resting EKG demonstrates atrial fibrillation with a rate of 96 bpm. Resting blood pressure is 132/70 mmHg. 0.4 mg of regadenoson was infused per usual protocol followed by rapid intravenous saline flush injection. Continuous EKG monitoring was performed. The maximum heart rate was 123 bpm which was 90% of max impacted heart rate the maximum workload was 1 metabolic equivalent. At rest there were no ST or T wave changes noted to suggest ischemia and at peak infusion nonspecific ST changes were noted which did not meet the criteria for ischemia. No clinical angina is noted. The final blood pressure was 122/70 mmHg. Myocardial perfusion protocol. 11 mCi of technetium 99m sestamibi was injected at rest. 0.4 mg of regadenoson was infused per usual protocol. At peak infusion 35.4 mCi of technetium 99m sestamibi was injected stress images were obtained stress and rest images were reconstructed and compared in the short axis vertical long and horizontal long axis. Gated images were also obtained. Perfusion SPECT analysis: Review of the stress images demonstrate normal uptake of tracer noted in all areas of the myocardium. The resting images similar demonstrated normal uptake of tracer noted in all areas of the myocardium. No areas of reversibility are noted to suggest ischemia and no previous infarct is noted. Gated SPECT analysis: The gated ejection fraction is 67%. Conclusion: Normal pharmacologic myocardial perfusion stress test. Preserved ejection fraction.
== END | disposition home or self-care (01) ==
PROVIDERS: PCP Student in an Organized Health Care Education/Training Program; Referring Provider Physician Assistant Medical; Visit Provider Physician Assistant Medical
DX: R06.09 Other forms of dyspnea (principal); R53.83 Other fatigue
CPT/HCPCS: 78452; 93017; A9500; A4216; J2785

== ENCOUNTER → 2025-01-16 | Outpatient (CLI) | payer MEDICARE, SELFPAY ==
[2025-01-16 11:41] LABS: Hematocrit 41.5 % (37-47); Hemoglobin 13.4 g/dL (12.0-15.0); Mean Corp Hgb Conc 32.3 g/dL (32-36); Mean Corpuscular Volume 92.2 fL (81-99); Mean Platelet Vol. 10.8 fl (6.2-12.0); Platelet Count 296 K/mm3 (150-450); RBC Distribution Width CV 14.1 % (11.6-14.6); RBC Distribution Width SD 47.7 fl (35.1-43.9); Red Blood Count 4.50 M/mm3 (4.2-5.4); White Blood Count 9.6 K/mm3 (4.4-11.0)
[2025-01-16 12:19] LABS: Anion Gap 12 (5-15); BUN 16 mg/dL (4-19); BUN/Creat Ratio 17.4 RATIO (10-20); Calcium,Total 9.3 mg/dL (7.6-11.0); Carbon Dioxide 23.4 mmol/L (21.0-32.0); Chloride 103 mmol/L (98-108); Glucose 101 mg/dL (70-99); Potassium 4.7 mmol/L (3.3-5.1); T4 Total, Thyroxin 7.0 ug/dL (4.8-13.9)
== END | disposition home or self-care (01) ==
LOC: LAB 11:19
PROVIDERS: PCP Student in an Organized Health Care Education/Training Program; Referring Provider Internal Medicine Cardiovascular Disease; Visit Provider Internal Medicine Cardiovascular Disease
DX: R06.09 Other forms of dyspnea (principal); I48.0 Paroxysmal atrial fibrillation; E03.9 Hypothyroidism, unspecified
CPT/HCPCS: 36415; 80048; 84436; 84443; 85027

== ENCOUNTER 2025-01-28 10:23 | Day surgery (SDC) | payer MEDICARE, OTHER, SELFPAY ==
[2025-01-27 13:44] VITALS: BMI 30.4
--- NOTE | 2025-01-28 12:29 | CARDIOVERS_ITS ---
Cardioversion Cardioversion: The patient was brought to the [facility] recovery area in the fasting state. She had been loaded on amiodarone and was currently on 200 mg daily. She had also been on uninterrupted Eliquis for 6 weeks. The patient had a presumed duration of paroxysmal atrial fibrillation of 3-4 months. The patient received anesthesia by Dr. Sarath Trivedi with 40 mg of IV Diprovan. After she was confirmed to be appropriately anesthetized a single 200 J synchronized shock was delivered. The patient converted to normal sinus rhythm at 60 bpm. ECG was done that showed some nonspecific T wave changes and otherwise was unremarkable. The patient recovered was moving all of her extremities answering questions appropriately and had no obvious neurologic deficits. The patient will be recovered in the cardiac [facility] recovery unit and discharged to home. The patient has an appointment for follow-up ECG in 1 week in the [facility] office. The patient will be continued on amiodarone 200 mg daily will reevaluate long-term management at 4 to 6 weeks when she is reevaluated in the office. Procedures Coronary Therapeutic CF Procedures [id number]: [id number] Cardioversion electric ext
--- NOTE | 2025-01-28 12:37 | PCM.OP.PRO2 ---
Procedures Pulmonary Pulmonary Procedures /Diagnostic Testin Con Sedation Bedside Procedural Bedside Procedure Information Date of Procedure: 01/28/25 Description of procedure: CONSCIOUS SEDATION REPORT DATE OF SERVICE: January 28, 2025 BRIEF HISTORY OF PRESENT ILLNESS: The patient is an 84-year-old female who presented to [facility] to undergo an elective outpatient cardioversion due to underlying atrial fibrillation. The patient has never previously undergone a cardioversion. She denied any anesthetic complications in the past. The patient is systemically anticoagulated on Eliquis. Her last surface echocardiogram demonstrated an ejection fraction of 55%. The patient has never been diagnosed with any pulmonary related conditions. She denies a history of obstructive sleep apnea. PHYSICAL EXAMINATION: VITAL SIGNS: Reviewed and were acceptable. GENERAL: The patient is a female, in no apparent distress, speaking in full sentences. HEENT: Normocephalic, atraumatic. Mucous membranes are moist and pink. Good mouth opening noted. Trachea is midline. CHEST: S1, S2 irregularly irregular. No murmurs, rubs or gallops were noted. LUNGS: Clear to auscultation bilaterally without appreciable wheezes, rales or rhonchi. ABDOMEN: Soft, nontender, nondistended. Positive bowel sounds. EXTREMITIES: There is no clubbing, cyanosis or edema. ASA Class: II DESCRIPTION OF PROCEDURE: After confirmation of informed consent, the patient's anesthesia plan was reviewed in detail. Propofol was chosen. Risks and benefits were reviewed and the patient agreed to proceed. At 1218, the patient was given 40 mg of propofol. The patient achieved an appropriate level of sedation and was given a 200 joule synchronized cardioversion by Dr. Bustos at the bedside. This was successful in achieving normal sinus rhythm. The patient was monitored until 1233, at which time she reached her baseline mental status and function. The patient tolerated the procedure well. COMPLICATIONS: None ESTIMATED BLOOD LOSS: None RECOMMENDATIONS: Okay to recover in usual fashion.
== END 2025-01-28 13:20 | disposition home or self-care (01) ==
PROVIDERS: PCP Student in an Organized Health Care Education/Training Program; Referring Provider Internal Medicine Cardiovascular Disease; Visit Provider Internal Medicine Cardiovascular Disease
DX: I48.20 Chronic atrial fibrillation, unspecified (principal); Z79.01 Long term (current) use of anticoagulants; I10 Essential (primary) hypertension; I25.10 Atherosclerotic heart disease of native coronary artery without angina pectoris; E03.9 Hypothyroidism, unspecified; Z79.899 Other long term (current) drug therapy; E78.00 Pure hypercholesterolemia, unspecified; Z79.890 Hormone replacement therapy
CPT/HCPCS: 92960; 93005

== ENCOUNTER 2025-01-30 22:11 | Inpatient (IN) | payer MEDICARE, OTHER, SELFPAY ==
[2025-01-30 21:00] VITALS: BP 130/77; PULSE 72; RESP 16; TEMP 35.9; O2SAT 97
--- OUTSIDE RECORDS SUMMARY | 2025-01-30 21:15 | XMS RPT_ITS | CCD ---
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 Vini Sparks DO Primary Care Provider Dr. Vini Sparks DO Referring Provider Dr. Srinath Bustos MD Attending Provider [facility] TROUT FARMER.Marilny MIJARES Unavailable Sarah Charles Attending Provider Dr. Vini Sparks DO Primary Care Physician Dr. Srinath Bustos MD Attending Physician Sarah Charles Attending Physician Sarah Charles Referring Provider Sarah Charles Nurse Practitioner Pamella SIMMS, Dr. Cherry Attending Physician Dr. Srinath Bustos MD Referring Provider SPARKS, VINI L Referring Unavailable SPARKS, VINI L Primary Care Unavailable AYESHA TRAN Referring Unavailabl e SPARKS, VINI L Primary Care Unavailable SPARKS, VINI L Referring Unavailable SPARKS, VINI L Primary Care Unavailable SPARKS, VINI L Primary Care Unavailable SPARKS, VINI L Attending Unavailable SPARKS, VINI L Primary Care Unavailable SIVA KNAPP Attending Unavailable SPARKS, VINI L Primary Care Unavailable SPARKS, VINI L Attending Unavailable SPARKS, VINI L Primary Care Unavailable SPARKS, VINI L Referring Unavailable ELISSA NEGRO Attending Unavailable ELISSA NEGRO Referring Unavailable SPARKS, VINI L Primary Care Unavailable ELISSA NEGRO Referring Unavailable SPARKS, VINI L Primary Care Unavailable SPARKS, VINI L Referring Unavailable SPARKS, VINI L Primary Care Unavailable Sparks, Vini Primary Care Unavailable Srinath Bustos Attending Unavailable Srinath Bustos Referring Unavailable Sarath Trivedi Attending Unavailable Srinath Bustos Referring Unavailable Srinath Bustos Consulting Unavailable Sparks, Vini Primary Care Unavailable Sparks, Vini Primary Care Unavailable Sarah Charles Consulting Unavail able Sarah Charles Referring Unavail able Dilip Can Attending Unavailable Srinath Bustos Attending Unavailable Sparks, Vini Primary Care Unavailable Sparks, Vini Referring Unavailable Sarah Charles Attending Unavail able Sparks, Vini Primary Care Unavailable Sparks, Vini Referring Unavailable Sparks, Vini Primary Care Unavailable Srinath Bustos Attending Unavailable Sparks, Vini Referring Unavailable Srinath Bustos Attending Unavailable Sparks, Vini Referring Unavailable Sparks, Vini Primary Care Unavailable Srinath Bustos Referring Unavailable Srinath Bustos Consulting Unavailable Srinath Bustos Attending Unavailable Sparks, Vini Primary Care Unavailable Sarah Charles Attending Unavail able Sarah Charles Referring Unavail able Sparks, Vini Primary Care Unavailable Srinath Bustos Referring Unavailable Srinath Bustos Attending Unavailable Sparks, Vini Primary Care Unavailable Allergies Allergy Classification Reported Allergen(s) Allergy Type Date of Onset Reaction(s) Facility (20 sources) Morphine; Translations: [MORPHINE] Drug Allergy 4 Mental Status Change, Intolerance, GI Upset [facility] (1 source) Morphine Drug Allergy 5 [facility] Repository Medications Current Medications Medication Drug Class(es) Dates Sig (Normalized) Sig (Original) amiodarone hydrochloride 200 mg oral tablet (3 sources) Antiarrhythmic Start: 01-16-2025 take 1 tablet by mouth once daily amLODIPine 5 mg oral tablet (20 sources) Dihydropyridine Calcium Channel Kushal Start: 09-30-2024 take 1 tablet by mouth once daily Start: 04-13-2022 End: 09-18-2024 take 1 tablet by mouth once daily Amlodipine 5 mg tablet Active 5 mg PO daily September 30, 2024 12:00am Comment on above: Take 1 tablet by alesha th once daily. apixaban 5 mg oral tablet (20 sources) Factor Xa Inhibitor Start: 12-13-2024 take 1 tablet by mouth twice daily Start: 08-28-2024 End: 12-13-2024 take 1 tablet by mouth twice daily Apixaban (Eliquis) 2.5 mg tablet Discontinued 2.5 mg PO TWICE A DAY 200 3 December 12, 2024 9:17am December 13, 2024 3:05pm Blood Pressure Test Kit-Larg e (20 sources) Start: 01-21-2022 Blood Pressure Test Kit-Large Indications: Essential hypertension, benign 1 Each once daily. 1 Each 01/21/2022 Active Start: 01-21-2022 Blood Pressure Test Kit-Large Indications: Essential hypertension, benign 1 Each once daily. 1 Each 0 01/21/2022 Active Comment on above: 1 Each once daily. calcium carbonate 1250 mg oral tablet (6 sources) Start: 11-13-2017 take 1500 mg by mouth at bedtime Calcium Carbonate Active 1500 MG PO AT BEDTIME November 13, 2017 2:45pm Start: 11-13-2017 take 3 tablets by mouth at bed time Calcium Carbonate / vitamin D3 (20 sources) take 1 tablet by alesha th once daily calcium carbonate/vitamin D3 (CALCIUM 600 + D,3, ORAL) Take 1 tablet by mouth once daily. Active take 1 tablet by mouth once chen y calcium carbonate/vitamin D3 (CALCIUM 600 + D,3, ORAL) Take 1 tablet by mouth once daily. 0 Active Comment on above: Take 1 tablet by alesha th once daily. levothyroxine sodium 0.112 mg oral tablet (20 sources) l-Thyroxine Start: 12-12-2024 take 1 tablet by mouth once daily Start: 12-12-2024 take 1 tablet by mouth once [place] Levothyroxine 112 mcg tablet Active 112 ug PO daily December 12, 2024 12:00am Start: 09-30-2024 End: 12-12-2024 take 1 capsule by mouth once daily Levothyroxine 112 mcg capsule Discontinued 112 ug PO daily September 30, 2024 12:00am December 12, 2024 8:35am Start: 10-23-2023 End: 11-05-2024 take 1 tablet by mouth once daily for thyroid dysfunction levothyroxine (SYNTHROID) 112 mcg tablet Take 1 tablet by mouth daily Take on empty stomach. For thyroid. 90 tablet 1 11/05/2024 Active Start: 04-13-2022 End: 10-20-2023 take 1 tablet by mouth once daily for thyroid dysfunction levothyroxine (SYNTHROID) 112 mcg tablet Take 1 tablet by mouth daily Take on empty stomach. For thyroid. 90 tablet 1 04/06/2023 10/20/2023 Discontinued Start: 04-14-2021 End: 10-11-2021 take 1 tablet by mouth once daily for thyroid dysfunction levothyroxine (LEVOXYL) 112 mcg tablet Take 1 tablet by mouth daily Take on empty stomach. For thyroid. 90 tablet 1 10/12/2021 Active Start: 01-30-2013 End: 09-30-2024 take 1 tablet by mouth once daily Levothyroxine 125 MC G tablet Discontinued 125 ug PO DAILY January 30, 2013 12:00am September 30, 2024 1:44pm THYROID Comment on above: Take 1 tablet by alesha th daily Take on empty stomach. For thyroid. losartan potassium 50 mg oral tablet (20 sources) Angiotensin 2 Receptor Kushal Start: 09-30-2024 take 1 tablet by mouth once daily Start: 04-07-2023 End: 02-09-2024 take 1 tablet by mouth once daily Losartan 50 mg tablet Active 50 mg PO daily September 30, 2024 12:00am Start: 02-18-2022 End: 02-01-2023 take 1 tablet by mouth once daily losartan (COZAAR) 50 mg tablet Indications: Essential hypertension, benign Take 1 tablet by mouth once daily. 30 tablet 1 12/05/2022 02/01/2023 Discontinued Start: 01-21-2022 End: 02-20-2022 take 1 tablet by mouth twice daily losartan (COZAAR) 50 mg tablet Indications: Essential hypertension, benign Take 1 tablet by mouth twice daily. 60 tablet 2 01/21/2022 02/20/2022 Active Start: 01-18-2022 End: 01-21-2022 take 1 tablet by mouth once daily losartan (COZAAR) 50 mg tablet Take 1 tablet by mouth once daily. 30 tablet 0 01/18/2022 01/21/2022 Discontinued Comment on above: Take 1 tablet by alesha th twice daily. Take 1 tablet by alesha th once daily. naproxen 500 mg oral tablet (5 sources) Nonsteroidal Anti-inflammatory Drug Start: End: take 1 tablet by mouth every twelve hours as needed for headache and headache naproxen (NAPROSYN) 500 mg tablet Indications: Headaches Take 1 tablet by mouth twice daily as needed (for pain/inflammation) . Take with food. 30 tablet 0 01/13/2022 02/12/2022 Active Comment on above: Take 1 tablet by alesha th twice daily as needed (for pain/inflammation). Take with food. pravastatin sodium 40 mg oral tablet (20 sources) HMG-CoA Reductase Inhibitor Start: End: take 1 tablet by mouth at bedtime Start: 02-01-2021 take 1 tablet by alesha th once daily at bedtime pravastatin (PRAVACHOL) 40 mg tablet Indications: Dyslipidemia Take 1 tablet by mouth daily at bedtime. 90 tablet 3 02/01/2021 Active Comment on above: Take 1 tablet by alesha th daily at bedtime. sertraline 50 mg oral tablet (20 sources) Serotonin Reuptake Inhibitor Start: 10-15-2024 End: 01-16-2025 take 1 tablet by mouth at bedtime Start: 07-11-2024 End: 10-15-2024 take 2 tablets by mouth once daily Sertraline 100 mg tablet Discontinued 200 mg PO DAILY September 30, 2024 1:46pm October 15, 2024 1:16pm DEPRESSION Start: 02-26-2024 End: 07-11-2024 sertraline (ZOLOFT) 100 mg t ablet Indications: Dysthymia Take 1.5 tablets daily at bedtime 135 tablet 1 03/05/2024 07/11/2024 Discontinued Start: 06-13-2022 End: 08-28-2024 take 1 tablet by mouth once daily at bedtime, then take 2 tablets by mouth once daily at bedtime sertraline (ZOLOFT) 50 mg tablet Indications: Dysthymia Take 1 tablet PO daily at bedtime x 1 week then increase to 2 tablets PO daily at bedtime 90 tablet 1 11/17/2023 08/28/2024 Discontinued Start: 05-13-2022 End: 06-13-2022 take 1 tablet by mouth once daily at bedtime, then take 2 tablets by mouth once daily at bedtime sertraline (ZOLOFT) 25 mg tablet Indications: Dysthymia Take 1 tablet PO daily at bedtime x 1 week then increase to 2 tablets PO daily at bedtime 90 tablet 0 05/13/2022 06/13/2022 Discontinued Start: 10-21-2021 End: 12-14-2021 take 1 tablet by mouth once daily sertraline (ZOLOFT) 100 mg tablet Indications: Dysthymia Take 1 tablet by mouth once daily. 145 tablet 2 10/21/2021 12/14/2021 Discontinued Start: 11-13-2020 End: 10-21-2021 take 1.5 tablets by mouth once daily sertraline (ZOLOFT) 100 mg tablet Indications: Dysthymia Take 1.5 tablets by mouth once daily. 145 tablet 2 11/13/2020 10/21/2021 Discontinued (Adjust Sig - Block E-Cancel) Start: 12-04-2015 take 50 mg by mouth once daily Sertraline Active 50 MG PO DAILY December 04, 2015 1:59pm Start: 12-04-2015 End: 09-30-2024 Sertraline 100 MG tablet Discontinued 50 mg PO DAILY December 04, 2015 12:00am September 30, 2024 1:47pm DEPRESSION Comment on above: Take 1.5 tablets by mouth once daily. Take 1 tablet by alesha th once daily. Take 1 tablet PO bret ly at bedtime x 1 week then increase to 2 tablets PO daily at bedtime Vitamin B Complex (20 sources) take 1 tablet by mouth once daily vitamin b complex tab Take 1 tablet by mouth once daily. Active take 1 tablet by mouth once chen y vitamin b complex tab Take 1 tablet by mouth once daily. 0 Active Comment on above: Take 1 tablet by alesha th once daily. Vitamin B Complex tablet (5 sources) Start: 09-30-2024 Start: 09-30-2024 Vitamin B Comp micheal tablet Active 1 {tbl} PO daily September 30, 2024 12:00am Complies with drug therapy Start: 09-30-2024 Vitamin B Comp micheal tablet Active 1 {tbl} PO daily September 30, 2024 12:00am Completed/Discontinued Medications Medication Drug Class(es) Dates Sig (Normalized) Sig (Original) acetaminophen 500 mg oral tablet (20 sources) Start: 01-10-2019 End: 01-28-2019 take 3000 mg by mouth every twenty-four hours Acetaminophen Discontinued 1000 MG PO EVERY 8 HOURS 100 14 January 10, 2019 9:08am January 28, 2019 12:08am Do not take more than 3000 mg Tylenol in 24-hour. Start: 01-10-2019 End: 01-28-2019 Acetaminophen 500 MG tablet Discontinued 1000 mg PO EVERY 8 HOURS 100 14 0 January 10, 2019 12:00am January 23, 2019 12:00am January 28, 2019 12:08am Do not take more than 3000 mg Tylenol in 24-hour. Start: 11-29-2017 End: 01-10-2019 Acetaminophen Discontinued 1 000 MG PO NEEDED January 03, 2019 3:19pm January 10, 2019 9:11am Start: 11-29-2017 End: 01-10-2019 Acetaminophen 500 MG tablet Discontinued 1000 mg PO NEEDED as needed for Pain January 03, 2019 3:19pm January 10, 2019 9:11am Start: 11-13-2017 End: 11-29-2017 take 1 tablet by mouth once daily as needed for pain Acetaminophen (Tylenol Extra Strength) 500 MG tablet Discontinued 500 mg PO DAILY NEEDED as needed for Pain November 13, 2017 12:00am November 29, 2017 7:19am acetaminophen 325 mg / oxyCODONE hydrochloride 5 mg oral tablet (6 sources) Opioid Agonist Start: 12-08-2015 End: 12-08-2015 take 1 tablet by mouth every four hours Oxycodone-Acetaminophen Discontinued 1 - 2 TABLET PO Q4H December 08, 2015 7:35am December 08, 2015 11:46am Start: 12-08-2015 End: 12-08-2015 Oxycodone-Acetaminophen 1 TA BLET tablet Discontinued 1 - 2 {tbl} PO Q4H as needed for Pain 20 0 December 08, 2015 12:00am December 08, 2015 11:46am benzonatate 100 mg oral capsule (2 sources) Non-narcotic Antitussive Start: 01-09-2023 End: 01-24-2023 take 1 capsule by mouth every eight hours as needed for cough and cough benzonatate (TESSALON PERLE) 100 mg capsule Indications: Acute cough Take 1 capsule by mouth every 8 hours as needed for cough for up to 15 days. 30 capsule 01/09/2023 01/24/2023 Comment on above: Take 1 capsule by mo [facility] every 8 hours as needed for cough for up to 15 days. busPIRone hydrochloride 10 mg oral tablet (2 sources) Start: 07-11-2024 End: 08-28-2024 take 1 tablet by mouth twice daily busPIRone (BUSPAR) 10 mg tablet Indications: PALMA (generalized anxiety disorder) , Dysthymia Take 1 tablet by mouth two times a day. 60 tablet 2 07/11/2024 08/28/2024 Discontinued letrozole 2.5 mg oral tablet (11 sources) Aromatase Inhibitor Start: 01-03-2019 End: 10-15-2024 take 1 tablet by mouth once daily Letrozole 2.5 MG tablet Discontinued 2.5 mg PO DAILY January 03, 2019 12:00am October 15, 2024 1:19pm breast ca Comment on above: Take 1 tablet by alesha once daily. meloxicam 7.5 mg oral tablet (6 sources) Nonsteroidal Anti-inflammatory Drug Start: 01-10-2019 End: 10-15-2024 take 1 tablet by mouth twice daily Meloxicam 7.5 MG tablet Discontinued 7.5 mg PO TWICE A DAY 60 0 January 10, 2019 12:00am October 15, 2024 1:19pm Do not take any other nonsteroidal anti-inflammatorie s while on Mobic/meloxicam metoprolol tartrate 50 mg oral tablet (20 sources) beta-Adrenergic Kushal Start: 02-18-2022 End: 10-31-2025 take 1 tablet by mouth twice daily Metoprolol Tartrate 50 mg tablet Discontinued 50 mg PO TWICE A DAY September 30, 2024 12:00am January 16, 2025 11:15am Start: 01-13-2022 take 1 tablet by alesha th twice daily metoprolol tartrate, short acting, (LOPRESSOR) 50 mg tablet Indications: Essential hypertension, benign Take 1 tablet by mouth twice daily. 60 tablet 1 01/13/2022 Active Start: 01-20-2021 take 1.5 tablets by mouth twice daily metoprolol tartrate, short acting, (LOPRESSOR) 25 mg tablet Indications: Essential hypertension, benign Take 1.5 tablets by mouth twice daily. 270 tablet 3 01/20/2021 Active Start: 06-10-2019 End: 09-30-2024 take 1 tablet by mouth twice daily Metoprolol Tartrate 25 MG tablet Discontinued 25 mg PO TWICE A DAY June 10, 2019 1:00am September 30, 2024 1:44pm Comment on above: Take 1.5 tablets by mouth twice daily. Take 1 tablet by alesha th twice daily. oxyCODONE hydrochloride 5 mg oral tablet (6 sources) Opioid Agonist Start: End: take 1 tablet by mouth every four hours as needed for pain Oxycodone 5 MG tablet Discontinued 5 mg PO EVERY 4 HOURS NEEDED as needed for Pain Score 4-10/10 30 5 0 January 10, 2019 January 14, 2019 12:00am January 23, 2019 12:07am Presence of left artificial shoulder joint Problems Active Problems Problem Classification Problem Date Documented Date Episodic/Chronic Alcohol-related disorders (20 sources) Alcohol dependence; Translations: [Alcohol dependence, uncomplicated] Onset: 01-20-2021 01-20-2021 Chronic Anxiety disorders (20 sources) Generalized anxiety disorder; Translations: [Generalized anxiety disorder] Onset: 01-20-2021 01-20-2021 Chronic Blindness and vision defects (1 source) Blurring of visual image; Translations: [Other visual disturbances] Episodic Cancer of breast (20 sources) Malignant neoplasm of central part of female breast; Translations: [Malignant neoplasm of central portion of left female breast] Onset: 11-27-2015 11-27-2015 Chronic Cancer of breast (3 sources) History of malignant neoplasm of breast; Translations: [Personal history of malignant neoplasm of breast] Onset: 01-20-2025 12-04-2023 Episodic Cardiac dysrhythmias (20 sources) Atrial fibrillation; Translations: [Chronic atrial fibrillation] Onset: 01-20-2025 08-28-2024 Chronic Disorders of lipid metabolism (20 sources) Hyperlipidemia; Translations: [Hyperlipidemia, unspecified] Onset: 08-29-2017 04-28-2015 Chronic Essential hypertension (20 sources) Benign essential hypertension; Translations: [Essential (primary) hypertension] Onset: 08-29-2017 08-29-2017 Chronic Headache; including migraine (1 source) Headache; Translations: [Headaches] Episodic Headache; including migraine (1 source) Headache; including migraine; Translations: [Acute nonintractable headache, unspecified headache type] Onset: 01-18-2022 Hypertension with complications and secondary hypertension (20 sources) Hypertensive crisis; Translations: [Hypertensive crisis, unspecified] Onset: 06-12-2019 06-12-2019 Chronic Malaise and fatigue (20 sources) Asthenia; Translations: [Weakness] Onset: 02-28-2018 Episodic Mood disorders (20 sources) Dysthymia; Translations: [Dysthymic disorder] Onset: 08-24-2016 08-24-2016 Chronic Nutritional deficiencies (20 sources) Vitamin D deficiency; Translations: [Vitamin D deficiency, unspecified] Onset: 02-28-2018 02-28-2018 Chronic Occlusion or stenosis of precerebral arteries (17 sources) Bilateral atherosclerosis of carotid arteries; Translations: [Occlusion and stenosis of bilateral carotid arteries] Onset: 08-28-2024 08-28-2024 Chronic Osteoarthritis (20 sources) Osteoarthritis; Translations: [Unspecified osteoarthritis, unspecified site] 03-29-2005 Chronic Other aftercare (1 source) Encounter for follow-up examination after completed treatment for malignant neoplasm; Translations: [Encounter for follow-up surveillance of breast cancer] Onset: 01-20-2025 Episodic Other bone disease and musculoskeletal deformities (20 sources) Disorder of skeletal system; Translations: [Disorder of bone, unspecified] 03-29-2005 Episodic Other bone disease and musculoskeletal deformities (1 source) Disorder of bone and articular cartilage; Translations: [Disorder of bone, unspecified] Episodic Other bone disease and musculoskeletal deformities (2 sources) Disorder of bone; Translations: [Disorder of bone density and structure, unspecified] Episodic Other connective tissue disease (1 source) History of bilateral total knee replacement; Translations: [Presence of artificial knee joint, bilateral] 08-28-2024 Chronic Other connective tissue disease (1 source) Presence of artificial knee joint, bilateral; Translations: [History of total knee arthroplasty, bilateral] Onset: 08-28-2024 Chronic Other injuries and conditions due to external causes (1 source) Foreign body in left ear; Translations: [Foreign body in left ear, initial encounter] Episodic Other lower respiratory disease (1 source) Cough; Translations: [Acute cough] 01-09-2023 Episodic Other lower respiratory disease (8 sources) Dyspnea on exertion; Translations: [Other forms of dyspnea] 12-12-2024 Episodic Other lower respiratory disease (2 sources) Other forms of dyspnea; Translations: [Other forms of dyspnea] Onset: 01-17-2025 Episodic Other nervous system disorders (1 source) Aphasia; Translations: [Aphasia] Chronic Other nervous system disorders (1 source) Other chronic pain; Translations: [Chronic pain of both knees] Onset: 08-28-2024 Chronic Other nutritional; endocrine; and metabolic disorders (20 sources) Obese class I; Translations: [Obesity, unspecified] Onset: 08-29-2017 08-29-2017 Chronic Other screening for suspected conditions (not mental disorders or infectious disease) (11 sources) Patient encounter status; Translations: [Encounter for screening mammogram for malignant neoplasm of breast] Onset: 01-17-2022 Episodic Other skin disorders (1 source) Excessive sweating; Translations: [Generalized hyperhidrosis] Episodic Other upper respiratory disease (6 sources) Dysphonia; Translations: [Dysphonia] 11-28-2017 Episodic Other upper respiratory infections (1 source) Viral upper respiratory tract infection; Translations: [Acute upper respiratory infection, unspecified] 06-29-2023 Episodic Residual codes; unclassified (1 source) History of left mastectomy; Translations: [Acquired absence of left breast and nipple] 02-15-2023 Episodic Thyroid disorders (20 sources) Hypothyroidism; Translations: [Hypothyroidism, unspecified] Onset: 02-28-2018 09-08-2015 Chronic Transient cerebral ischemia (1 source) Cerebral ischemia; Translations: [Transient cerebral ischemic attack, unspecified] Chronic Unclassified (1 source) Chronic pain of both knees 08-28-2024 Unclassified (1 source) Chronic atrial fibrillation, unspecified; Translations: [Chronic atrial fibrillation, unspecified] Onset: 01-20-2025 Past or Other Problems Problem Classification Problem Date Documented Date Episodic/Chronic Cardiac dysrhythmias (9 sources) Palpitations; Translations: [Palpitations] Onset: 5 08-28-2024 Episodic Conditions associated with dizziness or vertigo (20 sources) Benign paroxysmal positional vertigo; Translations: [Benign paroxysmal vertigo, unspecified ear] Onset: 7 03-05-2020 Episodic Diabetes mellitus without complication (20 sources) Hyperglycemia; Translations: [Hyperglycemia, unspecified] Onset: 3 Episodic Fluid and electrolyte disorders (20 sources) Hyperkalemia; Translations: [Hyperkalemia] Onset: 3 Episodic Gastrointestinal hemorrhage (2 sources) Melena; Translations: [Melena] Onset: 5 08-28-2024 Episodic Immunizations and screening for infectious disease (5 sources) Contact with or exposure to other viral diseases; Translations: [Exposure to COVID-19 virus] Onset: 4 06-29-2023 Episodic Nonmalignant breast conditions (20 sources) Microcalcifications of the breast; Translations: [Mammographic microcalcification found on diagnostic imaging of breast] Onset: 6 08-24-2016 Episodic Nonspecific chest pain (3 sources) Chest pain; Translations: [Other chest pain] Onset: 5 08-28-2024 Episodic Nutritional deficiencies (20 sources) Cobalamin deficiency; Translations: [Deficiency of other specified B group vitamins] Onset: 3 Episodic Other bone disease and musculoskeletal deformities (20 sources) Osteopenia; Translations: [Other specified disorders of bone density and structure, multiple sites] Onset: 7 08-24-2016 Episodic Other bone disease and musculoskeletal deformities (20 sources) Senile osteopenia; Translations: [Other specified disorders of bone density and structure, unspecified site] Onset: 2 Episodic Other nervous system disorders (20 sources) Tremor; Translations: [Tremor, unspecified] Onset: 1 01-20-2021 Episodic Other non-traumatic joint disorders (2 sources) Pain in right knee; Translations: [Pain in joint, lower leg] Onset: 5 08-28-2024 Episodic Other non-traumatic joint disorders (1 source) Pain in left knee; Translations: [Chronic pain of both knees] Onset: 5 Episodic Residual codes; unclassified (1 source) Estrogen receptor positive status [ER+]; Translations: [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 in female, estrogen receptor positive (HCC)] Onset: 7 Episodic Unclassified (1 source) History of bilateral total knee replacement 08-28-2024 Results Test Name Value Interpretation Reference Range Facility Cardioversion Reporton 01-28 Cardioversion Report [facility] [address] [place] [address] MR#: [id number] Acct: [id number] Name: HARJIT BRADSHAW Rep #: [id number] : [id number] 84 From: Srinath Bustos MD Primary Care: Dr. Vini Sparks, DO [place] [facility] [place]erring [place]: Srinath Bustos MD Sex: F C Cardioversion Cardioversion: The patient was brought to the [facility] [place] recovery area in the fasting state. She had been loaded on amiodarone and was currently on 200 mg daily. She had also been on uninterrupted Eliquis for 6 weeks. The patient had a presumed duration of paroxysmal atrial fibrillation of 3-4 months. The patient received anesthesia by Dr. Sarath Trivedi with 40 mg of IV Diprovan. After she was confirmed to be appropriately anesthetized a single 200 J synchronized shock was delivered. The patient converted to normal sinus rhythm at 60 bpm. ECG was done that showed some nonspecific T wave changes and otherwise was unremarkable. The patient recovered was moving all of her extremities answering questions appropriately and had no obvious neurologic deficits. The patient will be recovered in the cardiac [facility] recovery unit and discharged to home. The patient has an appointment for follow-up ECG in 1 week in the [place] [facility] office. The patient will be continued on amiodarone 200 mg daily will reevaluate long-term management at 4 to 6 weeks when she is reevaluated in the office. Procedures Coronary Therapeutic CF Procedures [id number]-[id number]: [id number] Cardioversion electric ext 01/28/25 1233 Date Srinath Bustos MD CC: Dr. Vini Sparks, DO; Dr. Srinath Bustos MD Date Dictated: 01/28/251228 Date Transcribed: 01/28/251228 Freight Breaker: Signed Normal [facility] Procedure Reporton Procedure Report [facility] Medical Records Department [address] [place] [address] Procedure Report 01/28/25 1237 MR#: [id number] Acct: [id number] Name: HARJIT BRADSHAW Rep #: [id number] : 1940 84 From: Sarath Trivedi DO PCP: Dr. Vini Sparks DO [place] [facility] [place] [facility] Procedures Pulmonary Pulmonary Procedures /Diagnostic Testin Con Sedation Bedside Procedural Bedside Procedure Information Date of Procedure: 01/28/25 Description of procedure: CONSCIOUS SEDATION REPORT DATE OF SERVICE: January 28, 2025 BRIEF HISTORY OF PRESENT ILLNESS: The patient is an 84-year-old female who presented to [facility] to undergo an elective outpatient cardioversion due to underlying atrial fibrillation. The patient has never previously undergone a cardioversion. She denied any anesthetic complications in the past. The patient is systemically anticoagulated on Eliquis. Her last surface echocardiogram demonstrated an ejection fraction of 55%. The patient has never been diagnosed with any pulmonary related conditions. She denies a history of obstructive sleep apnea. PHYSICAL EXAMINATION: VITAL SIGNS: Reviewed and were acceptable. GENERAL: The patient is a female, in no apparent distress, speaking in full sentences. HEENT: Normocephalic, atraumatic. Mucous membranes are moist and pink. Good mouth opening noted. Trachea is midline. CHEST: S1, S2 irregularly irregular. No murmurs, rubs or gallops were noted. LUNGS: Clear to auscultation bilaterally without appreciable wheezes, rales or rhonchi. ABDOMEN: Soft, nontender, nondistended. Positive bowel sounds. EXTREMITIES: There is no clubbing, cyanosis or edema. ASA Class: II DESCRIPTION OF PROCEDURE: After confirmation of informed consent, the patient's anesthesia plan was reviewed in detail. Propofol was chosen. Risks and benefits were reviewed and the patient agreed to proceed. At 1218, the patient was given 40 mg of propofol. The patient achieved an appropriate level of sedation and was given a 200 joule synchronized cardioversion by Dr. Bustos at the bedside. This was successful in achieving normal sinus rhythm. The patient was monitored until 1233, at which time she reached her baseline mental status and function. The patient tolerated the procedure well. COMPLICATIONS: None ESTIMATED BLOOD LOSS: None RECOMMENDATIONS: Okay to recover in usual fashion. 01/28/25 1239 Cosigner Signature (if applicable): CC: Dr. Sarath Trivedi, DO; Dr. Vini Sparks, DO; Dr. Srinath Bustos MD Signed Normal [facility] CNOVSPon 01-20-2025 CNOVSP Visit (SP) Office (HEMAWS) HARJIT BRADSHAW ([id number]) 1940 F Date Time Provider Department 01/20/25 11:00 AM ELISSA NEGRO During your visit today, we recorded the following information about you: Temperature Pulse Blood pressure Weight 97.4 degrees 88/minute 130/90 74.2 kg 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 APRN.CNP 01/20/2025 11:26 AM Signed Chief Complaint Patient presents with: Established Patient HPI: Harjit Bradshaw is a 84 year old female who presents here today for follow up breast cancer. Per Dr. Nelson's previous note: H/o was found to have an abnormality in the left breast on a recent screening mammogram. She underwent a left breast, stereotactic mammotome biopsy on 11/24/2015. 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 The ductal carcinoma in situ was noted to be of solid pattern and intermediate nuclear grade and comprised less than 5% the tumor volume. The malignancy was both ER and IA positive (both > 95%, strong) and HER-2 quantified at 1+. The patient then underwent a mastectomy with sentinel lymph node sampling procedure on 12/03/2015. The final pathology demonstrated that within the center portion of the breast there was a 5 mm single focus of cancer. Overall grade was 2. Margins were negative. Lymphovascular invasion was not identified. 6 sentinel lymph nodes were removed all were negative for disease. Current therapy:Chloé Began arimidex 12/2015. Changed to aromasin 11/2016. Changed to femara 12/14/18. No new concerns today. Appetite:I'm not hungry but I eat. Wt. down 7# over past year. Energy level:I have very little. Denies fevers or recent illness. Resp:denies cough or sob Cardiac:denies chest pain/palpitations h/o A.fib GI:denies abd pain, n/v, moving bowels regularly :denies dysuria/hematuria Extrem:chronic L shoulder pain, s/p R shoulder replacement, denies new pain today Endo:denies hot flashes Neuro:denies symptoms of neuropathy Skin:denies rashes/lesions Heme:denies bleeding, on eliquis The ROS is otherwise negative. Past medical history, appointments, medications, allergies reviewed. No changes. EXAM: BP 130/90 Pulse 88 Temp 36.3 ?C (97.4 ?F) (Temporal) Wt 74.2 kg (163 lb 9.3 oz) SpO2 95% BMI 30.49 kg/m? APPEARANCE Well appearing, alert, in no acute distress, well-hydrated, well nourished. HEART RRR with normal S1 and S2, no murmurs LUNG clear to auscultation BREAST FEMALE R no mass/nodule, L mastectomy scar no nodule LYMPH NODES No cervical lymphadenopathy, No supraclavicular lymphadenopathy, and No axillary lymphadenopathy. ABDOMEN bowel sounds normoactive, soft, non-tender EXTREMITIES No edema NEURO Awake, alert and oriented x 3, Normal gait, and No involuntary motions. SKIN Skin color, texture, turgor normal, no suspicious rashes or lesions RADIOLOGY: Mammogram 01/10/25: IMPRESSION: There is no mammographic evidence of malignancy in the right breast. Routine screening mammogram is recommended. Annual mammogram will be due in 1 year. BI-RADS Category 1: Negative ASSESSMENT/PLAN: 1. 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 - No concerning findings on exam. - Tolerated aromasin poorly d/t fatigue and crying spells. - Tolerated femara well. - Pt. completed 5 years of AI therapy fall 2020. - Reviewed R mamm with pt. - Continue follow up with PCP for routine. - R mammogram due 2025. - Follow up in one year. - Pt. aware to call office with any questions/concerns. The patient indicates understanding of these issues and agrees with the plan. All documentation from previous visit of 12/04/23-Dr. Nelson/myself was copied and pasted, documentation has been reviewed and edited as necessary for today's visit. 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 APRN.MAINTENANCE AND CUSTODIAN SUPERVISOR Referring Provider: ELISSA NEGRO [[id number]] Allergies As of Date: 01/20/2025 Noted Allergy Reaction MORPHINE 03/03/2014 1 - Mental Status Change 5 - Intolerance 8 - GI Upset Date Reviewed: 01/20/2025 Reviewed by: 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 APRN.MAINTENANCE AND CUSTODIAN SUPERVISOR - Fully Assessed Reason for Visit: Established Patient [175] Primary Visit Diagnosis:Encounter for follow-up surveillance of breast cancer [Z08, Z85.3] Other Visit Diagnoses: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 in female, estrogen receptor positive (HCC) [C50.112, Z17.0] Encounter for screening mammogram for high-risk patient [Z12.31] Order(s):[facility] SCREENING W ORACIO [[id number]] Order #: [id number] FUTURE Follow-up and Disposition History for Encounter Date Provider Department Center 01/20/2025 [id number] Prescriptions as of 01/20/2025 - a (more content not included)... Normal [facility] Anion gap in Serum or Plasma Ordered By: Srinath Bustos on 01-16-2025 Anion gap [Moles/Vol] 12 mmol/L 08-29 [facility] BUN/creatinine ratioOrdered By: Srinath Bustos on 01-16-2025 Urea nitrogen/Creatinine [Mass ratio] 17.4 mg/mg 02-03 [facility] Basic Metabolic Profile (BMP )on 01-16-2025 BUN/CRE 17.4 RATIO Normal 10-20 [facility] Comment on above: Performed By: #### L 500.2500, L501.9310, L100.0500, L501.9520 #### [facility] Laboratory [address] [place], [address] Calcium [Mass/Vol] 9.3 mg/dL Normal 7.6-11.0 [facility] Comment on above: Performed By: #### L 500.2500, L501.9310, L100.0500, L501.9520 #### [facility] [address] [place], [address] Chloride [Moles/Vol] 103 mmol/L Normal 98-108 [facility] Comment on above: Performed By: #### L 500.2500, L501.9310, L100.0500, L501.9520 #### [facility] [address] [place], [address] CO2 [Moles/Vol] 23.4 mmol/L Normal 21.0-32.0 [facility] Comment on above: Performed By: #### L 500.2500, L501.9310, L100.0500, L501.9520 #### [facility] [address] [place], [address] Creatinine [Mass/Vol] 0.90 mg/dL Normal 0.70-1.20 [facility] Comment on above: Performed By: #### L 500.2500, L501.9310, L100.0500, L501.9520 #### [facility] [address] [place], [address] GAP 12 Normal 5-15 [facility] Comment on above: Performed By: #### L 500.2500, L501.9310, L100.0500, L501.9520 #### [facility] [address] [place], [address] GFR/1.73 sq M.predicted among non-blacks MDRD (S/P/Bld) [Vol rate/Area] 63 mL/min/{1.73_m2} Normal >60 [facility] Comment on above: Result Comment: mL/m in/1.73m2 CKD-EPI Creatinine Equation (2020) Performed By: #### L 500.2500, L501.9310, L100.0500, L501.9520 #### [facility] [address] [place], [address] Glucose [Mass/Vol] 101 mg/dL High 70-99 [facility] Comment on above: Performed By: #### L 500.2500, L501.9310, L100.0500, L501.9520 #### [facility] [address] [place], [address] Potassium [Moles/Vol] 4.7 mmol/L Normal 3.3-5.1 [facility] Comment on above: Performed By: #### L 500.2500, L501.9310, L100.0500, L501.9520 #### [facility] [address] [place], [address] Sodium [Moles/Vol] 139 mmol/L Normal 133-145 [facility] Comment on above: Performed By: #### L 500.2500, L501.9310, L100.0500, L501.9520 #### [facility] [address] [place], [address] Urea nitrogen [Mass/Vol] 16 mg/dL Normal 4-19 [facility] Comment on above: Performed By: #### L 500.2500, L501.9310, L100.0500, L501.9520 #### [facility] [address] [place], [address] CBC-Complete Blood Cnt No Di ffon 01-16-2025 Erythrocyte distribution width (RBC) [Ratio] 14.1 % Normal 11.6-14.6 [facility] Comment on above: Performed By: #### L 500.2500, L501.9310, L100.0500, L501.9520 #### [facility] [address] [place], [address] Hematocrit (Bld) [Volume fraction] 41.5 % Normal 37-47 [facility] Comment on above: Performed By: #### L 500.2500, L501.9310, L100.0500, L501.9520 #### [facility] [address] [place], [address] Hemoglobin (Bld) [Mass/Vol] 13.4 g/dL Normal 12.0-15.0 [facility] Comment on above: Performed By: #### L 500.2500, L501.9310, L100.0500, L501.9520 #### [facility] [address] [place], [address] MCH (RBC) [Entitic mass] 29.8 pg Normal 27.0-32.0 [facility] Comment on above: Performed By: #### L 500.2500, L501.9310, L100.0500, L501.9520 #### [facility] [address] [place], [address] MCHC (RBC) [Mass/Vol] 32.3 g/dL Normal 32-36 [facility] Comment on above: Performed By: #### L 500.2500, L501.9310, L100.0500, L501.9520 #### [facility] [address] [place], [address] MCV (RBC) [Entitic vol] 92.2 fL Normal 81-99 [facility] Comment on above: Performed By: #### L 500.2500, L501.9310, L100.0500, L501.9520 #### [facility] [address] [place], [address] Platelet mean volume (Bld) [Entitic vol] 10.8 fL Normal 6.2-12.0 [facility] Comment on above: Performed By: #### L 500.2500, L501.9310, L100.0500, L501.9520 #### [facility] [address] [place], [address] Platelets (Bld) [#/Vol] 296 10*3/uL Normal 150-450 [facility] Comment on above: Performed By: #### L 500.2500, L501.9310, L100.0500, L501.9520 #### [facility] [address] [place], [address] RBC (Bld) [#/Vol] 4.50 10*6/uL Normal 4.2-5.4 [facility] Comment on above: Performed By: #### L 500.2500, L501.9310, L100.0500, L501.9520 #### [facility] [address] [place], [address] RDW SD 47.7 fl High 35.1-43.9 [facility] Comment on above: Performed By: #### L 500.2500, L501.9310, L100.0500, L501.9520 #### [facility] [address] [place], [address] WBC (Bld) [#/Vol] 9.6 10*3/uL Normal 4.4-11.0 [facility] Comment on above: Performed By: #### L 500.2500, L501.9310, L100.0500, L501.9520 #### [facility] [address] [place], [address] Carbon dioxide, total [Moles /volume] in Central venous bloodOrdered By: Srinath Bustos on 01-16-2025 CO2 [Moles/Vol] 23.4 mmol/L 21.0-32.0 [facility] Cardiology Visit Reporton Cardiology Visit Report [facility] [address] [place] [address] OFFICE VISIT Date of Service: 01/16/25 MR#: [id number] Acct: [id number] Name: HARJIT BRADSHAW Rep #: [id number] : 1940 Provider: Dr. Srinath styles MD Age/Sex: 84/F Location: [facility] [place] Status: Signed HPI HPI History of Present Illness Details: Patient is a very pleasant 84-year-old white female that comes in today with her for reevaluation of her atrial fibrillation. Patient was originally diagnosed with atrial fibrillation in July or August 2024. She was first seen in our office in October 2024. She has now been on oral anticoagulation therapy for more than 6 weeks she had been reluctant to take it due to black tarry stools back in the summer. These stools were found not to be consistent with a GI bleed. And she has been on Eliquis December 12. Patient denies any nuisance bleeding she does report fatigue and dyspnea on exertion and does appear to be having symptoms from her atrial fibrillation. She is also complaining of jitteriness and fluttering sensations in her chest. The patient carries a history of hypertension her blood pressure is adequate controlled at 133/91 heart rate is 93 by palpation it was 105 on her ECGs which shows atrial fibrillation. The ECG also shows poor R wave progression and some nonspecific T wave changes in the inferior leads. Patient's echocardiogram done September 16, 2024 showed a mildly enlarged left atrium normal right atrium LVEF was 56% the right ventricle was normal in size with right ventricular systolic pressure being normal 1+ MR 1+ TR. This was done at the [facility]. The patient also had a stress test done 01/13/2025 which was a pharmacologic nuclear stress test which showed no evidence of ischemia. The patient is now here with her to discuss further recommendations. Intake Vital Signs 12/12/24 08:30 01/16/25 10:34 Height 5 ft 1 in 5 ft 1 in Weight: 164 lb 161 lb BMI 30.9 30.4 BP 140/90 H 133/91 H Blood Pressure Location Rt brachial Rt brachial Position Sitting Sitting Respiration 16 18 Pulse 74 93 Pulse Source NIBP Monitor Pulse Oximetry (%) 96 Oxygen Delivery Method room air Intake Visit Reasons: 6 W FU Complex Commercial Litigation Paralegal Required: No Accompanied by: Is patient in pain?: No Allergies morphine Adverse Reaction (Verified 01/16/25 10:35) Vomiting Medications ???Medication ???Instructions ???Recorded ???Confirmed ???Type calcium carbonate 1,500 mg PO QHS SUPPLEMENT 8 01/16/25 History amlodipine 5 mg tablet 5 mg PO QDAY 09/30/24 01/16/25 His tory losartan 50 mg tablet 50 mg PO QDAY 09/30/24 01/16/25 Hi story pravastatin 40 mg tablet 40 mg PO QHS 09/30/24 01/16/25 His tory vitamin B complex 1 tab PO QDAY 09/30/24 01/16/25 Hi story levothyroxine 112 mcg tablet 112 mcg PO QDAY 12/12/24 01/16/25 History apixaban 5 mg tablet 5 mg PO BID #200 tabs 12/13/2406/11 Rx amiodarone 200 mg tablet 200 mg PO QDAY #60 tabs 01/16/25 1 Rx sertraline 50 mg tablet 50 mg PO QHS 01/16/25 01/16/25 His tory Ejection fraction %: 56 Have you fallen in the past year?: No PFSH Medical History Chronic atrial fibrillation Palpitations Carotid atherosclerosis Hypothyroidism Bilateral malignant neoplasm of central portion of breast in female Anxiety Hyperlipidemia Hypertension Surgical History History of knee replacement History of tonsillectomy History of mastectomy History of cholecystectomy History of breast biopsy Family History Mother Cancer Father CAD (coronary artery disease) Myocardial infarction Sister Cancer Brother Cancer Heart disease Social History Smoking Status: Never smoker alcohol intake: current substance use type: does not use caffeine: Yes ROS Const Const: Positive for fatigue; Negative for weakness ENT ENT: Positive for dizziness; Negative for balance problems Cardio Chest Pain: No Palpitations: Yes Edema: Bilateral Muscle aches with walking: None Resp Respiratory: Negative for SOB with activity, SOB at rest or SOB orthopnea SOB lying down GI GI: Negative nausea, vomiting or heartburn Musc Musc: Negative for muscle weakness or balance problems Neuro Neuro: Positive for dizziness; Negative for lightheadedness, near syncope, syncope or weakness Endo Endo: Positive for fatigue Cardiology Exam Const Appearance: cooperative, healthy appearing, comfortable and no acute distress Nutritional Appearance: overweight Head Head: n (more content not included)... Normal [facility] Chloride assayOrdered By: Ariadna Bustos on 01-16-2025 Chloride [Moles/Vol] 103 mmol/L 98-108 [facility] Erythrocyte distribution wid th ratioOrdered By: Srinath Bustos on 01-16-2025 Erythrocyte distribution width (RBC) [Ratio] 14.1 % 11.6-14.6 [facility] Erythrocyte distribution wid th standard deviationOrdered By: Srinath Bustos on 01-16-2025 Erythrocyte distribution width (RBC) [Ratio] 47.7 fl High 35.1-43.9 [facility] Glomerular filtration rate ( GFR) estimation/1.73 sq m using serum, plasma, or whole bOrdered By: Srinath Bustos on 01-16-2025 GFR/1.73 sq M.predicted among non-blacks MDRD (S/P/Bld) [Vol rate/Area] 63 mL/min/{1.73_m2} >60 [facility] Comment on above: mL/min/1.73m2 CKD-EP I Creatinine Equation (2020) Hematocrit Auto (Bld) [Volum e fraction]Ordered By: Srinath Bustos on 01-16-2025 Hematocrit (Bld) [Volume fraction] 41.5 % 37-47 [facility] Hemoglobin measurementOrdere d By: Srinath Bustos on 01-16-2025 Hemoglobin (Bld) [Mass/Vol] 13.4 g/dL 12.0-15.0 [facility] MCV (mean corpuscular volume ) determinationOrdered By: Srinath Bustos on 01-16-2025 MCV (RBC) [Entitic vol] 92.2 fL 81-99 [facility] Mean corpuscular hemoglobin (MCH) determinationOrdered By: Srinath Bustos on 01-16-2025 MCH (RBC) [Entitic mass] 29.8 pg 27.0-32.0 [facility] Mean corpuscular hemoglobin concentration (MCHC) determinationOrdered By: Srinath Bustos on 01-16-2025 MCHC (RBC) [Mass/Vol] 32.3 g/dL 32-36 [facility] Mean platelet volume determi nationOrdered By: Srinath Bustos on 01-16-2025 Platelet mean volume (Bld) [Entitic vol] 10.8 fL 6.2-12.0 [facility] Platelet countOrdered By: Ariadna Bustos on 01-16-2025 Platelets (Bld) [#/Vol] 296 10*3/uL 150-450 [facility] Potassium measurement (mass/ volume)Ordered By: Srinath Bustos on 01-16-2025 Potassium (Unsp spec) [Mass/Vol] 4.7 mmol/L 3.3-5.1 [facility] RBC Auto (Bld) [#/Vol]Ordere d By: Srinath Bustos on 01-16-2025 RBC (Bld) [#/Vol] 4.50 10*6/uL 4.2-5.4 [facility] Serum creatinine measurement (mass/volume)Ordered By: Srinath Bustos on 01-16-2025 Creatinine [Mass/Vol] 0.90 mg/dL 0.70-1.20 [facility] Serum glucose measurement (m ass/volume)Ordered By: Srinath Bustos on 01-16-2025 Glucose [Mass/Vol] 101 mg/dL High 70-99 [facility] Serum or plasma calcium bette urement (mass/volume)Ordered By: Srinath Bustos on 01-16-2025 Calcium [Mass/Vol] 9.3 mg/dL 7.6-11.0 [facility] Serum or plasma urea nitroge n measurement (mass/volume)Ordered By: Srinath Bustos on 01-16-2025 Urea nitrogen [Mass/Vol] 16 mg/dL 4-19 [facility] Sodium levelOrdered By: Angel Bustos on 01-16-2025 Sodium [Moles/Vol] 139 mmol/L 133-145 [facility] T4 Total, Thyroxinon 025 T4 [Mass/Vol] 7.0 ug/dL Normal 4.8-13.9 [facility] Comment on above: Performed By: #### L 500.2500, L501.9310, L100.0500, L501.9520 #### [facility] [address] [place], [address] TSH DL <= 0.005 mIU/L QnOrde red By: Srinath Bustos on 01-16-2025 TSH Qn 3.710 uIU/mL 0.300-4.200 [facility] Thyroid Stim Hormone (TSH)on 01-16-2025 TSH 3.710 uIU/mL Normal 0.300-4.200 [facility] Comment on above: Performed By: #### L 500.2500, L501.9310, L100.0500, L501.9520 #### [facility] [address] [place], [address] ThyroxineOrdered By: Srinath Bustos on 01-16-2025 T4 [Mass/Vol] 7.0 ug/dL 4.8-13.9 [facility] White blood cell (WBC) count Ordered By: Srinath Bustos on 01-16-2025 WBC (Bld) [#/Vol] 9.6 10*3/uL 4.4-11.0 [facility] Cardiovascular stress test r eportOrdered By: Dilip Can on 01-13-2025 Study report [facility] Cardiovascular Services [address] [place] [address] MR#: [id number] Acct: [id number] Name: HARJIT BRADSHAW Rep #: [id number] : 1940 84 From: Dilip Can MD Primary Care: Dr. Vini Sparks, Sta tus: REG CLI Referring Dr: Sarah Garcia Sex : F C Stress Test Report Pharmacologic myocardial perfusion stress test. 84-year-old lady with a history of dyspnea on exertion. Resting EKG demonstrates atrial fibrillation with a rate of 96 bpm. Resting blood pressure is 132/70 mmHg. 0.4 mg of regadenoson was infused per usual protocol followed by rapid intravenous saline flush injection. Continuous EKG monitoring was performed. The maximum heart rate was 123 bpm which was 90% of max impacted heart rate the maximum workload was 1 metabolic equivalent. At restthere were no ST or T wave changes noted to suggest ischemia and at peak infusion nonspecific ST changes were noted which did not meet the criteria for ischemia. No clinical angina is noted. The final blood pressure was 122/70 mmHg. Myocardial perfusion protocol. 11 mCi of technetium 99m sestamibi was injected at rest. 0.4 mg of regadenoson was infused per usual protocol. At peak infusion 35.4 mCi of technetium 99m sestamibi was injected stress images were obtained stress and rest images were reconstructed and compared in the short axis vertical long and horizontal long axis. Gated images were also obtained. Perfusion SPECT analysis: Review of the stress images demonstrate normal uptake of tracer noted in all areas of the myocardium. The resting images similar demonstrated normal uptake of tracer noted in all areas of the myocardium. No areas of reversibility are noted to suggest ischemia and no previous infarct is noted. Gated SPECT analysis: The gated ejection fraction is 67%. Conclusion: Normal pharmacologic myocardial perfusion stress test. Preserved ejection fraction. 01/13/251847 Date _ Dilip Can MD CC: Dr. Vini Sparks DO; RAMSES Bansal ~ Date Dictated: 01/13/251846 Date Transcribed: 01/13/251846 Freight Breaker: CO Signed [facility] Work Phone: Stress Reporton 01-13-2025 Stress Report [facility] Cardiovascular Services [address] [place] [address] MR#: [id number] Acct: [id number] Name: HARJIT BRADSHAW Senia Rep #: [id number] : 1940 84 From: Dilip Can MD Primary Care: Dr. Vini Sparks DO Status: REG CLI Referring Dr: Sarah Garcia Sex: F C Stress Test Report Pharmacologic myocardial perfusion stress test. 84-year-old lady with a history of dyspnea on exertion. Resting EKG demonstrates atrial fibrillation with a rate of 96 bpm. Resting blood pressure is 132/70 mmHg. 0.4 mg of regadenoson was infused per usual protocol followed by rapid intravenous saline flush injection. Continuous EKG monitoring was performed. The maximum heart rate was 123 bpm which was 90% of max impacted heart rate the maximum workload was 1 metabolic equivalent. At rest there were no ST or T wave changes noted to suggest ischemia and at peak infusion nonspecific ST changes were noted which did not meet the criteria for ischemia. No clinical angina is noted. The final blood pressure was 122/70 mmHg. Myocardial perfusion protocol. 11 mCi of technetium 99m sestamibi was injected at rest. 0.4 mg of regadenoson was infused per usual protocol. At peak infusion 35.4 mCi of technetium 99m sestamibi was injected stress images were obtained stress and rest images were reconstructed and compared in the short axis vertical long and horizontal long axis. Gated images were also obtained. Perfusion SPECT analysis: Review of the stress images demonstrate normal uptake of tracer noted in all areas of the myocardium. The resting images similar demonstrated normal uptake of tracer noted in all areas of the myocardium. No areas of reversibility are noted to suggest ischemia and no previous infarct is noted. Gated SPECT analysis: The gated ejection fraction is 67%. Conclusion: Normal pharmacologic myocardial perfusion stress test. Preserved ejection fraction. 01/13/251847 Date Dilip Can MD CC: Dr. Vini Sparks, DO; RAMSES Bansal Date Dictated: 01/13/251846 Date Transcribed: 01/13/251846 Freight Breaker: CO Signed Normal [facility] AMBROSE SCREENING Rosana Lewis 01-10 AMBROSE SCREENING W ORACIO * * *Final Report* * * DATE OF EXAM: Jan 10 2025 11:05AM WRW [id number] - AMBROSE SCREENING W ORACIO / PROCEDURE REASON: multiple diagnoses * * * * Physician Interpretation * * * * RESULT: [address] [address] #[id number] - [facility] SCREENING W ORACIO HISTORY: 84 year-old patient [...] has dense breast tissue. Interpreting Radiologist: Silvia Story M.D. Electronically signed on: 01/11/2025 Freight Breaker: HILDA Transcribe Date/Time: Jan 10 2025 10:50A Dictated by: SILVIA STORY MD This examination was interpreted and the report reviewed and electronically signed by: SILVIA STORY MD on Jan 11 2025 7:46AM EST [id number] Normal [facility] López [facility]-07-20[facility] HARJ[facility] BRADSHAW ([id number]) 1940 F Date Time Provider Department 01/07/25 VINI SPARKS During your visit today, we recorded the [...] January 07, 2025 2:44 PM Ayesha Tran APRN.CNP 01/08/2025 9:58 AM Signed Refilled 2.5 mg BID. Please clarify with patient the request for an increase. Thank you, Ayesha Tran APRN.MARYANA The following approved medication requests have been transmitted electronically. Requested Prescriptions Signed Prescriptions Disp Refills apixaban (ELIQUIS) 2.5 mg tab(s) 60 tablet 3 Sig: Take 1 tablet by mouth two times a day. Authorizing Provider: AYESHA TRAN APRN.CNP Babulski, Amanda, RN 01/08/2025 10:46 AM Signed Pt called and is notified of providers message. Pt voices understanding. She states Sarah PEARCE from [facility] told her she needed to [...] instruction and rx from cardiology. Thank you, Ayesha Tran APRN.MAINTENANCE AND CUSTODIAN SUPERVISOR Allergies As of Date: 01/07/2025 Noted Allergy Reaction MORPHINE 03/03/2014 1 - Mental Status Change 5 - Intolerance 8 - GI Upset Date Reviewed: 08/28/2024 Reviewed by: Randy Aguilera LPN - Fully Assessed Reason for Visit: Refill Request [94] Visit Diagnoses:Palpitation s [R00.2] Atrial fibrillation, unspecified type (HCC) [I48.91] [...] t* 3 01/08/2025 Route: PO Sig: Take (more content not included)... Normal [facility] Cardiology Visit Reporton Cardiology Visit Report [facility] [address] [place], [place] [address]curly. [address] [place], [place] [address] OFFICE VISIT Date of Service: 12/12/24 MR#: [id number] Acct: [id number] Name: HARJIT BRADSHAW Senia Rep #: [id number] : 1940 Provider: RAMSES Da Silva Age/Sex: 84/F Location: [facility] Status: Signed HPI HPI History of Present Illness Details: Harjit Bradshaw is an 84-year-old female that recently established with us for atrial fibrillation. She also has a history of hypertension and hyperlipidemia. echocardiogram in 2024 demonstrated an ejection fraction of 56%. Mild mitral and tricuspid insuff. Stress test in 2016 was negative for ischemia. She was not started on Eliquis d/t concerns over blood in her stools. This work up was negative. She is here today to discuss this. Pts biggest concern is leg weakness. She has not fallen. It is getting worse over the last few months. She also feels that she is more fatigued with exertion. She does not have any chest pain. She does sometimes have worsening SOB. Intake Vital Signs 10/15/24 13:14 12/12/24 08:30 Height 5 ft 1 in 5 ft 1 in Weight: 162 lb 164 lb BMI 30.6 30.9 BP 114/76 140/90 H Blood Pressure Location Lt brachial Rt brachial Position Sitting Sitting Respiration 18 16 Pulse 86 74 Pulse Source Monitor NIBP Pulse Oximetry (%) 95 Oxygen Delivery Method room air Intake Visit Reasons: 2 WK FU/See Clinical Note Complex Commercial Litigation Paralegal Required: No Accompanied by: Is patient in pain?: No Allergies morphine Adverse Reaction (Verified 10/15/24 13:14) Vomiting Medications ???Medication ???Instructions ???Recorded ???Confirmed ???Type calcium carbonate 1,500 mg PO QHS SUPPLEMENT 8 12/12/24 History amlodipine 5 mg tablet 5 mg PO QDAY 09/30/24 12/12/24 His tory losartan 50 mg tablet 50 mg PO QDAY 09/30/24 12/12/24 Hi story metoprolol tartrate 50 mg tablet 50 mg PO BID 09/30/24 12/12/24 His tory pravastatin 40 mg tablet 40 mg PO QHS 09/30/24 12/12/24 His tory vitamin B complex 1 tab PO QDAY 09/30/24 12/12/24 Hi story sertraline 50 mg tablet mg PO QHS 10/15/24 12/12/24 Histor y apixaban 2.5 mg tablet (Eliquis) 2.5 mg PO BID #200 tabs 12/12/24 0 12/12/24 Rx levothyroxine 112 mcg tablet 112 mcg PO QDAY 12/12/24 12/12/24 History Ejection fraction %: 56 Have you fallen in the past year?: No PFSH Medical History Chronic atrial fibrillation Palpitations Carotid atherosclerosis Hypothyroidism Bilateral malignant neoplasm of central portion of breast in female Anxiety Hyperlipidemia Hypertension Surgical History History of knee replacement History of tonsillectomy History of mastectomy History of cholecystectomy History of breast biopsy Family History Mother Cancer Father CAD (coronary artery disease) Myocardial infarction Sister Cancer Brother Cancer Heart disease Social History Smoking Status: Never smoker alcohol intake: current substance use type: does not use caffeine: Yes ROS Const Const: Negative for fatigue or weakness Eyes Eyes: Negative for change in vision ENT ENT: Negative for dizziness or balance problems Cardio Chest Pain: No Palpitations: No Edema: Bilateral (Mild, intermittently) Resp Respiratory: Positive for SOB with activity (Occasionally); Negative for SOB at rest or SOB orthopnea SOB lying down GI GI: Negative nausea or heartburn Musc Musc: Positive for muscle weakness (Leg weakness at times); Negative for balance problems Neuro Neuro: Positive for lightheadedness (Occasionally); Negative for dizziness, near syncope, syncope or weakness Endo Endo: Negative for fatigue Cardiology Exam Const Appearance: cooperative, comfortable and no acute distress Nutritional Appearance: overweight Head Head: normal to inspection Eyes General: appearance normal, both eyes and all related structures Neck Neck: normal visual inspection and no JVD Carotids: Negative bruit Chest Chest inspection: normal inspection of the chest Auscultation: Bilateral: Clear to Auscultation Cardio Rate: regular rate Rhythm: irregularly irregular Heart sounds: S1 normal and S2 normal; Negative rub, gallop or murmur Neuro General: patient alert and patient oriented x3 Extremities Lower Extremity Edema: None: Bilateral Psych Psychological: normal affect Supplemental Info Supplemental Information Echocardiogram 09/16/2024 Conclusions -Technically difficult exam due to body habitus and left mastectomy -Exam indication: chest pain -The left ventricle is normal in size. Left ventricular systolic function is no (more content not included)... Normal [facility] Cardiology Visit Reporton Cardiology Visit Report [facility] [address] [place] [address] OFFICE VISIT Date of Service: 10/15/24 MR#: [id number] Acct: [id number] Name: HARJIT BRADSHAW Rep #: [id number] : 1940 Provider: Dr. Srinath styles MD Age/Sex: 84/F Location: [facility] Status: Signed HPI HPI History of Present Illness Details: Patient is a very pleasant 84-year-old white female that comes in today with her who I actually took care of 25 years ago at [facility]. The patient is here for new patient visit for atrial fibrillation. Patient originally found out that she was in atrial fibrillation in July 2024 when she was evaluated in Dr. Sparks's office and found to be in an irregular rhythm. She does not know when this started. ECG in the office today shows that she is in atrial fibrillation with a controlled ventricular response at 97 bpm there are some nonspecific inferior and lateral T wave changes. The patient denies any chest pain she denies any palpitations she is totally asymptomatic from an arrhythmia standpoint. The patient denies any history of TIA or CVAs she has been on Eliquis and has noted some dark tarry stools. She apparently sent the stool sample in recently to Dr. Sparks's office but has not heard back yet. She also had blood work done which I assume was a CBC but I do not have access to it. 3 weeks ago she had blood work which showed a hemoglobin of 12.9 hematocrit 41.0 and a normal platelet count of 268,000. Patient's last lipids 3 weeks ago total cholesterol was 200 triglycerides 131 HDL 89 and LDL 89. The patient does not have known coronary artery disease. She has minimal carotid disease. Patient reports that she is able to get around and do about what she pleases but is limited by weakness that occurs with her legs status post bilateral knee replacements. She denies any dyspnea on exertion or shortness of breath denies any PND orthopnea denies any chest pains. Intake Vital Signs 10/15/24 13:14 Height 5 ft 1 in Weight: 162 lb BMI 30.6 BP 114/76 Blood Pressure Location Lt brachial Position Sitting Respiration 18 Pulse 86 Pulse Source Monitor Pulse Oximetry (%) 95 Oxygen Delivery Method room air Intake Visit Reasons: AFIB (BRIDGER) Complex Commercial Litigation Paralegal Required: No Accompanied by: Is patient in pain?: No Allergies morphine Adverse Reaction (Verified 10/15/24 13:14) Vomiting Medications ???Medication ???Instructions ???Recorded ???Confirmed ???Type calcium carbonate 1,500 mg PO QHS SUPPLEMENT 8 10/15/24 History amlodipine 5 mg tablet 5 mg PO QDAY 09/30/24 10/15/24 His tory apixaban 2.5 mg tablet (Eliquis) 2.5 mg PO BID 09/30/24 10/15/24 Hi story levothyroxine 112 mcg capsule 112 mcg PO QDAY 09/30/24 10/15/24 History losartan 50 mg tablet 50 mg PO QDAY 09/30/24 10/15/24 Hi story metoprolol tartrate 50 mg tablet 50 mg PO BID 09/30/24 10/15/24 His tory pravastatin 40 mg tablet 40 mg PO QHS 09/30/24 10/15/24 His tory vitamin B complex 1 tab PO QDAY 09/30/24 10/15/24 Hi story sertraline 50 mg tablet mg PO QHS 10/15/24 10/15/24 Histor y Ejection fraction %: 56 Have you fallen in the past year?: No PFSH Medical History Chronic atrial fibrillation Palpitations Carotid atherosclerosis Hypothyroidism Bilateral malignant neoplasm of central portion of breast in female Anxiety Hyperlipidemia Hypertension Surgical History History of knee replacement History of tonsillectomy History of mastectomy History of cholecystectomy History of breast biopsy Family History Mother Cancer Father CAD (coronary artery disease) Myocardial infarction Sister Cancer Brother Cancer Heart disease Social History Smoking Status: Never smoker alcohol intake: current substance use type: does not use caffeine: Yes ROS Const Const: Positive for fatigue; Negative for weakness ENT ENT: Negative for dizziness or balance problems Cardio Chest Pain: No Palpitations: No Edema: Bilateral Muscle aches with walking: None Resp Respiratory: Positive for SOB with activity; Negative for SOB at rest or SOB orthopnea SOB lying down GI GI: Negative nausea, vomiting or heartburn Musc Musc: Negative for muscle weakness or balance problems Neuro Neuro: Negative for dizziness, lightheadedness, near syncope, syncope or weakness Endo Endo: Positive for fatigue Cardiology Exam Const Appearance: cooperative, comfortable and no acute distress Nutritional Appearance: overweight Head Head: normal to inspecti (more content not included)... Normal [facility] US CAROTID ARTERIES [facility] 10-10-2024 US CAROTID [facility]ERIES [facility] Non-Invasive Vascular Laboratory [facility] Carotid Duplex Bilateral/Complete Date of service/time: 10/10/2024 [...] interpretation criteria are used as recommended by Intersocietal Accreditation Commission. When compared with the prior [...] noted. Subclavian artery: Patent. Technologist: Tayler Pritchett RVT Ordering physician: VINI SPARKS Interpreting physician: Juan Bernstein MD, LUDIVINA Final CC [employer] [facility] Image : [id number] amicsSISUID See Link below for Image Normal [facility] CNPElizabeth 09-26-2024 CNPN Telephone (FAMPWS) HARJIT BRADSHAW ([id number]) 1940 F Date Time Provider Department 09/26/24 [facility] During your visit today, we recorded the following information about you: Yaa Jordan RN 09/26/2024 3:30 PM Signed Patient states she was ordered Eliquis but it is too costly for her to continue. Asking for provider to order an alternative medication that will cost less. Please call patient with reply. SYLVIE Manjarrez Jordan L, DO 09/27/2024 8:37 AM Signed Has she seen the Community Relations Police Lieutenant yet? This is needed DO Julian Díaz [...] to get her to this appt with Community Relations Police Lieutenant? DO Arabella Díaz Susan LPN 09/27/2024 10:18 AM Signed Message left to return call. Jodie Dupont LPN 10/04/2024 12:46 PM Signed Tried to [...] Encounter Status:Closed by YAA JORDAN on 10/17/24 [facility] 09-17-2024 [facility] HARJIT BRADSHAW ([id number]) 1940 F Date Time Provider Department 09/17/24 VINI SPARKS [facility] During your visit today, we recorded the following information about you: Vini Sparks, DO 09/17/2024 7:40 AM Signed Please inform [...] Status:Closed by RANDY AGUILERA LPN on 09/17/24 Normal [facility] ECHOon 09-16-2024 Echocardiography Echocardiography Report: Transthoracic Echo [facility] Date of service: 09/16/2024 1:00:21 PM MACHINIST Ordering physician: VINI SPARKS Exam indication: Chest Pain Technologist: Ailin Lilly RD Interpreting physician: Dale Mercer MD PATIENT: Name: [...] * * Final * * * CC [employer] [facility] : [id number] amicsSISUID Normal [facility] POTASSIUMon 09-14-2024 Potassium [Moles/Vol] 5.0 mmol/L Normal 3.7-5.1 [facility] Comment on above: Order Comment: Speci men Type: BLOOD SPECIMEN Ordering Facility: [facility] Address: [address] [place] [address] Performed By: #### K 1 #### [facility] CLIA [id number] [address] [place], [place] [address] [place] CNPNon 09-04-2024 CNPN Telephone (FAMPWS) HARJIT BRADSHAW ([id number]) 1940 F Date Time Provider Department 09/04/24 VINI SPARKS [facility] During your visit today, we recorded the following information about you: Quattrocchi, Purnima, AUTOMOTIVE WINDOW TINTER 09/04/2024 2:55 PM Signed Patient calling said pharmacy told her for a month of Eliquis is 460 dollars and she can not afford that. She said her is on the medication and has to pay that much for 90 days rx. Patient is asking if she could be put on something else that is cheaper? Patient uses [facility] for her pharmacy. Please advise Vini Sparks DO 09/07/2024 7:29 AM Signed Please call and clarify if she has seen the Community Relations Police Lieutenant yet? She was just recently diagnosed with atrial fibrillation on 08/28 in office DO Kiah Díaz Linda M, LPN 09/07/2024 10:05 AM Signed Spoke wit pt states has not yet seen legal cashier. Vini Sparks DO 09/07/2024 11:17 AM Signed I need her to get an appt [facility], I don;t know if she is actually a candidate, until getting their opinion, to change to Warfarin instead of Eliquis DO Sade Díaz Jazzmin, MA 09/10/2024 10:49 AM Signed Pt needs to see cardiology [facility]! Please schedule LOULOU Seymour Stephanie 09/12/2024 8:52 AM Signed Spoke with patient and she does not want to leave [facility] for [facility] cardiology [facility]. [facility] Please advise if provider is ok with patient going to [facility]. Ayesha Tran APRN.MARYANA 09/12/2024 1:16 PM Signed Ok with going with [facility]. Please assistance in scheduling/ provide her the number. Thank you, GODWIN Beth Stephanie 09/13/2024 3:45 PM Signed Order faxed to [facility] with the request that they reach out to the patient to schedule. Allergies As of Date: 09/04/2024 Noted Allergy Reaction MORPHINE 03/03/2014 1 - Mental Status Change 5 - Intolerance 8 - GI Upset Date Reviewed: 08/28/2024 Reviewed by: Liliana-Green, Randy AUTOMOTIVE WINDOW TINTER - Fully Assessed Reason for Visit: Medication [...] Encounter Status:Closed by AILIN ALANIS on 09/13/24 Normal [facility] Hemoccult Stl Ql IAon 2024 Lower GI hemoglobin IA Ql (Stl) Negative Normal Negative [facility] Comment on above: Order Comment: Speci men Type: STOOL SPECIMEN Ordering Facility: [facility] Address: [address] [place] [address] Performed By: #### 2 9771-3 #### [facility] CLIA [id number] [address] [place] [address] [place] 25(OH)D3 [facility] 25-hydroxyvitamin D3 [Mass/Vol] 63.8 ng/mL Normal 31.0-80.0 [facility] Comment on above: Order Comment: Speci men Type: BLOOD SPECIMENOrdering Facility: [facility] Address: [address] [place] [address] Performed By: #### 1 989-3 ####[facility]IA [id number] [place] [address] [place] CBC panel Auto (Bld)on 05-15 -2025 Erythrocyte distribution width (RBC) [Ratio] 15.4 % High 11.5-15.0 [facility] Comment on above: Order Comment: Speci men Type: STOOL SPECIMEN Ordering Facility: [facility] Address: [address] [place] [address] Performed By: #### 2 9771-3 #### [facility] CLIA [id number] [address] [place] [address] [place] Hematocrit (Bld) [Volume fraction] 41.0 % Normal 36.0-46.0 [facility] Comment on above: Order Comment: Speci men Type: STOOL SPECIMEN Ordering Facility: [facility] Address: [address] [place] [address] Performed By: #### 2 9771-3 #### [facility] CLIA [id number] [address] [place] [address] [place] Hemoglobin (Bld) [Mass/Vol] 12.9 g/dL Normal 11.5-15.5 [facility] Comment on above: Order Comment: Speci men Type: STOOL SPECIMEN Ordering Facility: [facility] Address: [address] [place] [address] Performed By: #### 2 9771-3 #### [facility] CLIA [id number] [address] [place] [address] [place] MCH (RBC) [Entitic mass] 29.4 pg Normal 26.0-34.0 [facility] Comment on above: Order Comment: Speci men Type: STOOL SPECIMEN Ordering Facility: [facility] Address: [address] [place] [address] Performed By: #### 2 9771-3 #### [facility] CLIA [id number] [address] [place] [address] [place] MCHC (RBC) [Mass/Vol] 31.5 g/dL Normal 30.5-36.0 [facility] Comment on above: Order Comment: Speci men Type: STOOL SPECIMEN Ordering Facility: [facility] Address: [address] [place] [address] Performed By: #### 2 9771-3 #### [facility] CLIA [id number] [address] [place] [address] [place] MCV (RBC) [Entitic vol] 93.4 fL Normal 80.0-100.0 [facility] Comment on above: Order Comment: Speci men Type: STOOL SPECIMEN Ordering Facility: [facility] Address: [address] [place] [address] Performed By: #### 2 9771-3 #### [facility] CLIA [id number] [address] [place] [address] [place] Nucleated RBC (Bld) [#/Vol] 10*3/uL Normal <0.01 [facility] Comment on above: Order Comment: Speci men Type: STOOL SPECIMEN Ordering Facility: [facility] Address: [address] [place] [address] Performed By: #### 2 9771-3 #### [facility] CLIA [id number] [address] [place] [address] [place] Platelet mean volume (Bld) [Entitic vol] 11.5 fL Normal 9.0-12.7 [facility] Comment on above: Order Comment: Speci men Type: STOOL SPECIMEN Ordering Facility: [facility] Address: [address] [place] [address] Performed By: #### 2 9771-3 #### [facility] CLIA [id number] [address] [place] [address] [place] Platelets (Bld) [#/Vol] 268 10*3/uL Normal 150-400 [facility] Comment on above: Order Comment: Speci men Type: STOOL SPECIMEN Ordering Facility: [facility] Address: [address] [place] [address] Performed By: #### 2 9771-3 #### [facility] CLIA [id number] [address] [place] [address] [place] RBC (Bld) [#/Vol] 4.39 10*6/uL Normal 3.90-5.20 [facility] Comment on above: Order Comment: Speci men Type: STOOL SPECIMEN Ordering Facility: [facility] Address: [address] [place] [address] Performed By: #### 2 9771-3 #### [facility] CLIA [id number] [address] [place] [address] [place] WBC (Bld) [#/Vol] 9.35 10*3/uL Normal 3.70-11.00 [facility] Comment on above: Order Comment: Speci men Type: STOOL SPECIMEN Ordering Facility: [facility] Address: [address] [place] [address] Performed By: #### 2 9771-3 #### [facility] CLIA [id number] [address] [place] [address] [place] Comprehensive metabolic 2000 panelon 08-29-2024 Albumin [Mass/Vol] 4.5 g/dL Normal 3.9-4.9 [facility] Comment on above: Order Comment: Speci men Type: BLOOD SPECIMENOrdering Facility: [facility] Address: [address] [place] [address] Performed By: #### 3 016-3, 20817-3, 04254-7, 3024-7 ####[facility] [id number] [place] [address] [place] ALP [Catalytic activity/Vol] 119 U/L Normal 34-123 [facility] Comment on above: Order Comment: Speci men Type: BLOOD SPECIMENOrdering Facility: [facility] Address: [address] [place] [address] Performed By: #### 3 016-3, 13498-5, 76696-5, 3024-7 ####[facility] [id number] [address] [address] [place] ALT [Catalytic activity/Vol] 25 U/L Normal 7-38 [facility] Comment on above: Order Comment: Speci men Type: BLOOD SPECIMENOrdering Facility: [facility] Address: [address] [place] [address] Performed By: #### 3 016-3, 93292-5, 78014-7, 3023-7 ####[facility] [id number] [address] [address] [place] Anion gap [Moles/Vol] 14 mmol/L Normal 8-15 [facility] Comment on above: Order Comment: Speci men Type: BLOOD SPECIMENOrdering Facility: [facility] Address: [address] [place] [address] Performed By: #### 3 016-3, 79953-1, 12471-2, 3023-7 ####[facility] [id number] [place] [id number] [place] AST [Catalytic activity/Vol] 31 U/L Normal 13-35 [facility] Comment on above: Order Comment: Speci men Type: BLOOD SPECIMENOrdering Facility: [facility] Address: [address] [place] [address] Performed By: #### 3 016-3, 01567-3, 09920-6, 3023-7 ####[facility] [id number] [address] [address] [place] Bilirubin [Mass/Vol] 0.5 mg/dL Normal 0.2-1.3 [facility] Comment on above: Order Comment: Speci men Type: BLOOD SPECIMENOrdering Facility: [facility] Address: [address] [place] [address] Performed By: #### 3 016-3, 31526-5, 61790-5, 302-7 ####[facility] [id number] [address] [address] [place] Calcium [Mass/Vol] 9.6 mg/dL Normal 8.5-10.2 [facility] Comment on above: Order Comment: Speci men Type: BLOOD SPECIMENOrdering Facility: [facility] Address: [address] [place] [address] Performed By: #### 3 016-3, 29013-5, 86252-9, 3023-7 ####[facility] [id number] [place] [id number] [place] Chloride [Moles/Vol] 105 mmol/L Normal 98-107 [facility] Comment on above: Order Comment: Speci men Type: BLOOD SPECIMENOrdering Facility: [facility] Address: [address] [place] [address] Performed By: #### 3 016-3, 18782-2, 46245-5, 3027 ####[facility] [id number] [place] [id number] [place] CO2 [Moles/Vol] 22 mmol/L Normal 22-30 [facility] Comment on above: Order Comment: Speci men Type: BLOOD SPECIMENOrdering Facility: [facility] Address: [address] [place] [address] Performed By: #### 3 016-3, 02591-4, 25624-6, 7 ####[facility] [id number] [address] [address] [place] Creatinine [Mass/Vol] 0.90 mg/dL Normal 0.58-0.96 [facility] Comment on above: Order Comment: Speci men Type: BLOOD SPECIMENOrdering Facility: [facility] Address: [address] [place] [address] Performed By: #### 3 016-3, 88085-0, 20529-1, 302-7 ####[facility]IA [id number] [address] [place] Creatinine and Glomerular filtration rate.predicted panel (S/P/Bld) 63 mL/min/1.73m??? Normal >=60 [facility] Comment on above: Order Comment: Marychuy andrew Type: BLOOD SPECIMENOrdering Facility: [facility] Address: [address] [place] [address] Result Comment: Halley mated Glomerular Filtration Rate (eGFR) is calculated using the 2020 CKD-EPI creatinine equation. This equation utilizes serum creatinine, sex, and age as parameters. The creatinine assay has traceable calibration to isotope dilution-mass spectrometry. Refer to KDIGO guidelines for clinical interpretation. In patients with unstable renal function, e.g. those with acute kidney injury, the eGFR may not accurately reflect actual GFR. Performed By: #### 3 016-3, 98208-1, 27033-0, 3024-7 ####[facility] [id number] [place] [address] [place] Glucose [Mass/Vol] 95 mg/dL Normal 74-99 [facility] Comment on above: Order Comment: Marychuy andrew Type: BLOOD SPECIMENOrdering Facility: [facility] Address: [address] [place] [address] Result Comment: The [place] Diabetes Association (ADA) provides guidance for cutoff [...] Standards of Medical Care in Diabetes 2016, [place] Diabetes Association. Diabetes Care. 2016.39(Suppl 1). Performed By: #### 3 016-3, 43648-1, 94517-2, 3024-7 ####[facility]IA [id number] [address] [address] [place] Potassium [Moles/Vol] 5.5 mmol/L High 3.7-5.1 [facility] Comment on above: Order Comment: Speci men Type: BLOOD SPECIMENOrdering Facility: [facility] Address: [address] [place] [address] Performed By: #### 3 016-3, 03161-4, 72139-5, 3023-7 ####[facility]IA [id number] [facility] [address] [place] [address] [place] Protein [Mass/Vol] 7.4 g/dL Normal 6.3-8.0 [facility] Comment on above: Order Comment: Speci men Type: BLOOD SPECIMENOrdering Facility: [facility] Address: [address] [place] [address] Performed By: #### 3 016-3, 00363-7, 15922-3, 7 ####[facility]IA [id number] [facility] [address], [facility] [place] Sodium [Moles/Vol] 141 mmol/L Normal 136-144 [facility] Comment on above: Order Comment: Speci men Type: BLOOD SPECIMENOrdering Facility: [facility] Address: [address] [place] [address] Performed By: #### 3 016-3, 19274-6, 25192-1, 7 ####[facility]IA [id number] [facility] [address] [place] [address] [place] Urea nitrogen [Mass/Vol] 19 mg/dL Normal 7-21 [facility] Comment on above: Order Comment: Speci men Type: BLOOD SPECIMENOrdering Facility: [facility] Address: [address] [place] [address] Performed By: #### 3 016-3, 79767-0, 32019-8, 302-7 ####[facility]IA [id number] [facility] [address] [place] HbA1c (Bld)on 08-29-2024 Average glucose Estimated from glycated hemoglobin (Bld) [Mass/Vol] 120 mg/dL Normal [facility] Comment on above: Order Comment: Marychuy andrew Type: STOOL SPECIMEN Ordering Facility: [facility] Address: [address] [place] [address] Result Comment: eAG: (Estimated average glucose) is a calculated value from HgbA1c and is rental sales representative of the average blood glucose level in the last 2-3 month period. Performed By: #### 2 9771-3 #### [facility] CLIA [id number] [address] [place] [address] [place] HbA1c (Bld) [Mass fraction] 5.8 % High 4.3-5.6 [facility] Comment on above: Order Comment: Marychuy andrew Type: STOOL SPECIMEN Ordering Facility: [facility] Address: [address] [place] [address] Result Comment: Amer ican Diabetes Association guidelines indicate that patients with HgbA1c in the range 5.7-6.4% are at increased risk for development of diabetes, and intervention by lifestyle modification may be beneficial. HgbA1c greater or equal to 6.5% is considered diagnostic of diabetes. Performed By: #### 2 9771-3 #### [facility] CLIA [id number] [address] [place] [address] [place] Lipid 1996 panelon 5 Cholesterol [Mass/Vol] 200 mg/dL High <200 [facility] Comment on above: Order Comment: Marychuy andrew Type: BLOOD SPECIMENOrdering Facility: [facility] Address: [address] [place] [address] Result Comment: <200 mg/dL, Desirable 200-239 mg/dL, Borderline high >239 mg/dL, High Performed By: #### 3 016-3, 48133-8, 08182-6, 3024-7 ####[facility] [id number] [place] [address] [place] Cholesterol in HDL [Mass/Vol] 89 mg/dL Normal >39 [facility] Comment on above: Order Comment: Elissai lorrie Type: BLOOD SPECIMENOrdering Facility: [facility] Address: [address] [place] [address] Result Comment: 40-5 9 mg/dL, Acceptable >59 mg/dL, High: Negative risk factor for coronary heart disease <40 mg/dL, Low: Positive risk factor for coronary heart disease Performed By: #### 3 016-3, 14364-9, 95933-2, 3024-7 ####[facility] [id number] [address] [address] [facility] Cholesterol in LDL [Mass/Vol] 89 mg/dL Normal <100 [facility] Comment on above: Order Comment: Marychuy lorrie Type: BLOOD SPECIMENOrdering Facility: [facility] Address: [address] [place] [address] Result Comment: <100 mg/dL, Optimal 100-129 mg/dL, Near optimal/above optimal 130-159 mg/dL, Borderline high 160-189 mg/dL, High >189 mg/dL, Very high Secondary prevention optimal LDL Cholesterol levels are recommended to be <70 mg/dL LDL cholesterol is calculated using the Butler-NIH equation. Performed By: #### 3 016-3, 26793-0, 80786-3, 3024-7 ####[facility] [id number] [place] [address] [facility] Cholesterol in LDL/Cholesterol in HDL [Mass ratio] 1.00 {ratio} Normal <2.54 [facility] Comment on above: Order Comment: Marychuy andrew Type: BLOOD SPECIMENOrdering Facility: [facility] Address: [address] [place] [address] Result Comment: [place]: 1. National Cholesterol Education Program ATP III Guideline At-A-Glance Quick Desk Reference: National Heart, Lung, and Blood [place]. National Institutes of Health. 2001: NIH Publication No. 01-3305. 2. An International Atherosclerosis Society position paper: global recommendations for the management of dyslipidemia: executive summary, Atherosclerosis. 2014: 232(2):410-413. Performed By: #### 3 016-3, 45785-2, 03610-9, 7 ####[facility] [id number] [address] [address] [place] Cholesterol in VLDL [Mass/Vol] 21 mg/dL Normal <30 [facility] Comment on above: Order Comment: Speci men Type: BLOOD SPECIMENOrdering Facility: [facility] Address: [address] [place] [address] Performed By: #### 3 016-3, 86036-3, 24943-5, 3023-10 ####[facility] [id number] [place] [address] [place] Cholesterol non HDL [Mass/Vol] 111 mg/dL Normal <130 [facility] Comment on above: Order Comment: Speci men Type: BLOOD SPECIMENOrdering Facility: [facility] Address: [address] [place] [address] Result Comment: <130 mg/dL, Optimal 130-159 mg/dL, Near optimal/above optimal 160-189 mg/dL, Borderline high 190-219 mg/dL, High >219 mg/dL, Very high Secondary prevention optimal non HDL Cholesterol levels are recommended to be <100 mg/dL Performed By: #### 3 016-3, 60037-0, 85391-6, 7 ####[facility]IA [id number] [address] [place] [address] [place] Cholesterol.total/Choles terol in HDL [Mass ratio] 2.25 {ratio} Normal <5.10 [facility] Comment on above: Order Comment: Speci men Type: BLOOD SPECIMENOrdering Facility: [facility] Address: [address] [place] [address] Performed By: #### 3 016-3, 75017-9, 90554-4, 7 ####[facility]IA [id number] [address] [address] [place] FASTING TIME 12 hrs Normal [facility] Comment on above: Order Comment: Speci men Type: BLOOD SPECIMENOrdering Facility: [facility] Address: [address] [place] [address] Performed By: #### 3 016-3, 58745-4, 27269-9, 4-7 ####[facility]IA [id number] [place] [address] [place] Triglyceride [Mass/Vol] 131 mg/dL Normal <150 [facility] Comment on above: Order Comment: Speci men Type: BLOOD SPECIMENOrdering Facility: [facility] Address: [address] [place] [address] Result Comment: <150 mg/dL, Normal 150-199 mg/dL, Borderline high 200-499 mg/dL, High >499 mg/dL, Very high Performed By: #### 3 016-3, 26096-4, 93499-5, 3023-7 ####[facility]IA [id number] [place] [address] [place] T4 Free SerPl-mCncon 025 Free T4 [Mass/Vol] 1.4 ng/dL Normal 0.9-1.7 [facility] Comment on above: Order Comment: Speci men Type: BLOOD SPECIMENOrdering Facility: [facility] Address: [address] [place] [address] Performed By: #### 3 016-3, 29651-8, 04082-2, 3023-7 ####[facility]IA [id number] [place] [id number] [place] TSH SerPl-aCncon 08-29-2024 TSH Qn 1.370 m[IU]/L Normal 0.270-4.200 [facility] Comment on above: Order Comment: Speci men Type: BLOOD SPECIMENOrdering Facility: [facility] Address: [address] [place] [address] Performed By: #### 3 016-3, 25437-4, 86809-2, 3024-7 ####[facility] [id number] [place] [address] [place] Vit B12 Rosariol-Bobbincabigail 05-15-2 025 Cobalamin (Vitamin B12) [Mass/Vol] 661 pg/mL Normal 232-1245 [facility] Comment on above: Order Comment: Speci men Type: STOOL SPECIMEN Order[facility] Address: [address] [place] [address] Performed By: #### 2 9771-3 #### [facility] CLIA [id number] [address] [place] [address] [place] SHAWNAOVabigail 08-28-2024 CNOV Office Visit (FAMPWS ) HARJIT BRADSHAW ([id number]) 1940 Date Time Provider Department 08/28/24 12:00 PM VINI SPARKS [facility] During your visit today, we recorded the following information about you: Temperature Pulse Respiration Blood pressure 97 degrees 76/minute 16/minute 120/80 Weight Height 74.8 kg 1.56 m Vini Sparks DO 08/28/2024 1:14 PM Signed Harjit Conn [...] history review Reviewed and updated problem list, medical/surgical/fami ly/social history, medications, and allergies. Opioid use review [...] Tympanic) Resp 16 Ht 156 cm (5' 1.42) Wt 74.8 kg (165 lb) BMI 30.75 kg/m? Vision Screening: Follows with optometry/ophthalmolo gy Assessment/Plan Medicare annual wellness visit, subsequent (Z00.00) [...] any falls. Denies any regular exercise. States when I walk for a while my knees just start to feel rubbery like they will give out on me. No use of a cane or a [...] SHOULDER Left 01/09/2019 Dr. David Nieto @ [facility]; L reverse total shoulder replacement; [...] by mouth once daily. levothyroxine (SYNTHROID) 112 (more content not included)... Normal [facility] 08-28-2024 [facility] Telephone (FAMPWS) HARJIT BRADSHAW ([id number]) 1940 F Date Time Provider Department 08/28/24 [facility] During your visit today, we recorded the following information about you: Vini Sparks, 08/28/2024 1:15 PM Signed Please fax Community Relations Police Lieutenant referral to [facility] per her request Also fax current ECG and office notes DO Arablela Díaz Susan LPN 08/28/2024 2:00 PM Signed [...] Status:Closed by RANDY AGUILERA LPN on 08/28/24 Normal [facility] ECG COMPLETEon 08-28-2024 ECG COMPLETE Ventricular Rate : 9 3 BPM QRS Duration : 84 ms Q-T Interval : 364 ms QTC Calculation(Bazett) : 452 ms Calculated R Rapidan : 7 degrees Calculated T Rapidan : -57 degrees ATRIAL FIBRILLATION INFERIOR T WAVE ABNORMALITY ABNORMAL ECG Confirmed by MD SHALINI, DAVID ([id number]) on 09/02/2024 12:34:02 PM NAME : HARJIT BRADSHAW PID : [id number] : 1940 Gender : Female Race : ORD : [id number] Procedure Date : Aug 28 2024 12:47:38 Edit Date : Sep 02 2024 12:34:05 Diagnosis: ATRIAL FIBRILLATION INFERIOR T WAVE ABNORMALITY ABNORMAL ECG Confirmed by MD LOYA QARAB ([id number]) on 09/02/2024 12:34:02 PM Test Reason : R07.89 Other chest pain Location : 185 : [facility] Overread By : MD LOYA QARAB Edited By : MD LOYA QARAB Referred By : , Acquired by : Genaro MIN [facility] CNOVon 07-11-2024 CNOV Office Visit (FAMPWS ) HARJIT BRADSHAW ([id number]) 1940 F Date Time Provider Department 07/11/24 2:20 PM SIVA KNAPP [facility] During your visit today, we recorded the following information about you: Pulse Respiration Blood pressure Weight 60/minute 18/minute 130/84 74.7 kg Siva Knapp MD 07/11/2024 2:56 PM Signed Chief Complaint Patient presents with: Anxiety HPI Ica A Augustine is a 83 year old female who presents here today for anxiety. Established pt of Dr. Sparks, new to this office. Pt here with [...] it to stop, stomach feels like it flip/flops, tired, and has no energy. Pt has [...] SHOULDER Left 01/09/2019 Dr. David Nieto @ [facility]; L reverse total shoulder replacement; [...] no details, 85 Coronary Artery Disease Father [place], 94 Cancer Sister 57 liver Cancer Brother [...] done Shingrix Vaccine(2 of 2) due on (more content not included)... Normal [facility] HARJIT BRADSHAW ([id number]) 1940 F Date Time Provider Department 02/29/24 VINI SPARKS [facility] During your visit today, we recorded the following information about you: Purnima Galvez LPN 02/29/2024 9:18 AM Signed [facility] [place] [facility] calling asking to clarify directions on [...] for 90 tablets with 1 refill. Called [facility] and spoke with pharmacist Camilla. Confirmed with [...] date is 07/09/23 and prescription number of [id number]. Pt states that sometimes she will empty [...] She states that she told him Dr. Sparks was going to increase her to 150 [...] to speak with her daughter Lexy, Jesus, mwbqpvja-[id number] Owen and son Bravo. Nurse concerned about [...] starts noticing more confusion. Verbalized understanding. Vini Sparks DO 03/05/2024 4:22 PM Signed The following approved medication requests have been transmitted electronically. Requested Prescriptions Signed Prescriptions Disp Refills sertraline (ZOLOFT) 100 mg tablet 135 tablet 1 Sig: Take 1.5 tablets daily at bedtime Authorizing Provider: VINI SPARKS DO Detwiler-Green, Susan LPN 03/05/2024 4:45 PM Signed Tried to inform no answer or VM. [place] Sarah Kinney 03/05/2024 4:49 PM Signed Patient returned phone call. Please call her on her 's cell: [phone]. Randy Aguilera LPN 03/06/2024 5:57 PM Signed Detailed message left on husbands VM. Allergies As of Date: 02/29/2024 Noted Allergy Reaction MORPHINE 03/03/2014 1 - Mental Status Change 5 - Intolerance 8 - GI Upset D (more content not included)... [facility] HARJ[facility] BRADSHAW ([id number]) 1940 F Date Time Provider Department 02/28/24 VINI SPARKSWS During your visit today, we recorded the following information about you: Nayely, Deanna 02/28/2024 2:49 PM Signed Harjit is calling Vini Sparks DO today. Patient was at [facility] today and they have no record of receiving two of the medications sent on Monday sertraline (ZOLOFT) 100 mg tablet amLODIPine (NORVASC) 5 mg tablet Please contact pharmacy or send new scripts. Deana Ferreira MA 02/28/2024 3:01 PM Signed [facility] [place] [facility] file and will get ready for turkey picker. Deana Ferreira MA Allergies As of Date: [...] Encounter Status:Closed by DEANA FERREIRA on 02/28/24 [facility] CNOVon 02-26-2024 CNOV Office Visit (FAMPWS ) AUGUSTINEHARJIT Senia ([id number]) 1940 F Date Time Provider Department 02/26/24 10:40 AM [facility] During your visit today, we recorded the following information about you: Temperature Pulse Respiration Blood pressure 97 degrees 60/minute 16/minute 120/80 Weight 76.7 kg Vini Sparks, 02/26/2024 11:08 AM Signed Magnesium glycinate or gluconate 400-500 mg in the evening to help symptoms Vitamin B12 once a day 1000 mcg a day in the AM Vini Sparks DO 02/26/2024 3:57 PM Signed CCJose Luis Conn Augustine is a 83 year old [...] SHOULDER Left 01/09/2019 Dr. David Nieto @ [facility]; L reverse total shoulder replacement; [...] bring results to next visit - Encouraged so (more content not included)... Normal [facility] 25(OH)D3 [facility] 25-hydroxyvitamin D3 [Mass/Vol] 51.5 ng/mL Normal 31.0-80.0 [facility] Comment on above: Order Comment: Speci men Type: BLOOD SPECIMENOrdering Facility: [facility] Address: [address] [place] [address] Performed By: #### 1 989-3 ####[facility] [id number] [place] [address] [place] CBC W Auto Differential pane l (Bld)on 02-19-2024 Basophils (Bld) [#/Vol] 0.07 10*3/uL Normal <0.11 [facility] Comment on above: Order Comment: Elissai men Type: STOOL SPECIMEN [facility] Facility[facility] Address: [address] [place] [address] Performed By: #### 2 9771-3 #### [facility] CLIA [id number] [address] [place] [address] [place] Basophils/100 WBC (Bld) 1.0 % Normal [facility] Comment on above: Order Comment: Speci men Type: STOOL SPECIMEN [facility] Facility[facility] Address: [address] [place] [address] Performed By: #### 2 9771-3 #### [facility] CLIA [id number] [address] [place] [address] [place] Differential cell count method Nom (Bld) Auto Normal [facility] Comment on above: Order Comment: Speci men Type: STOOL SPECIMEN [facility] Address: [address] [place] [address] Performed By: #### 2 9771-3 #### [facility] CLIA [id number] [address] [place] [address] [place] Eosinophils (Bld) [#/Vol] 0.33 10*3/uL Normal <0.46 [facility] Comment on above: Order Comment: Speci men Type: STOOL SPECIMEN [facility] Address: [address] [place] [address] Performed By: #### 2 9771-3 #### [facility] CLIA [id number] [address] [place] [address] [place] Eosinophils/100 WBC (Bld) 4.6 % Normal [facility] Comment on above: Order Comment: Speci men Type: STOOL SPECIMEN [facility] Address: [address] [place] [address] Performed By: #### 2 9771-3 #### [facility] CLIA [id number] [address] [place] [address] [place] Erythrocyte distribution width (RBC) [Ratio] 13.8 % Normal 11.5-15.0 [facility] Comment on above: Order Comment: Speci men Type: STOOL SPECIMEN [facility] Address: [address] [place] [address] Performed By: #### 2 9771-3 #### [facility] CLIA [id number] [address] [place] [address] [place] Hematocrit (Bld) [Volume fraction] 39.5 % Normal 36.0-46.0 [facility] Comment on above: Order Comment: Speci men Type: STOOL SPECIMEN [facility] Address: [address] [place] [address] Performed By: #### 2 9771-3 #### [facility] CLIA [id number] [address] [place] [address] [place] Hemoglobin (Bld) [Mass/Vol] 12.8 g/dL Normal 11.5-15.5 [facility] Comment on above: Order Comment: Speci men Type: STOOL SPECIMEN [facility] Address: [address] [place] [address] Performed By: #### 2 9771-3 #### [facility] CLIA [id number] [address] [place] [address] [place] Immature granulocytes (Bld) [#/Vol] 0.03 10*3/uL Normal <0.10 [facility] Comment on above: Order Comment: Speci men Type: STOOL SPECIMEN [facility] Address: [address] [place] [address] Performed By: #### 2 9771-3 #### [facility] CLIA [id number] [address] [place] [address] [place] Immature granulocytes/100 WBC (Bld) 0.4 % Normal [facility] Comment on above: Order Comment: Speci men Type: STOOL SPECIMEN [facility] Address: [address] [place] [address] Performed By: #### 2 9771-3 #### [facility] CLIA [id number] [address] [place] [address] [place] Lymphocytes (Bld) [#/Vol] 1.52 10*3/uL Normal 1.00-4.00 [facility] Comment on above: Order Comment: Speci men Type: STOOL SPECIMEN [facility] Address: [address] [place] [address] Performed By: #### 2 9771-3 #### [facility] CLIA [id number] [address] [place] [address] [place] Lymphocytes/100 WBC (Bld) 21.3 % Normal [facility] Comment on above: Order Comment: Speci men Type: STOOL SPECIMEN [facility] Address: [address] [place] [address] Performed By: #### 2 9771-3 #### [facility] CLIA [id number] [address] [place] [address] [place] MCH (RBC) [Entitic mass] 31.0 pg Normal 26.0-34.0 [facility] Comment on above: Order Comment: Speci men Type: STOOL SPECIMEN [facility] Address: [address] [place] [address] Performed By: #### 2 9771-3 #### [facility] CLIA [id number] [address] [place] [address] [place] MCHC (RBC) [Mass/Vol] 32.4 g/dL Normal 30.5-36.0 [facility] Comment on above: Order Comment: Speci men Type: STOOL SPECIMEN [facility] Address: [address] [place] [address] Performed By: #### 2 9771-3 #### [facility] CLIA [id number] [address] [place] [address] [place] MCV (RBC) [Entitic vol] 95.6 fL Normal 80.0-100.0 [facility] Comment on above: Order Comment: Speci men Type: STOOL SPECIMEN [facility] Address: [address] [place] [address] Performed By: #### 2 9771-3 #### [facility] CLIA [id number] [address] [place] [address] [place] Monocytes (Bld) [#/Vol] 0.68 10*3/uL Normal <0.87 [facility] Comment on above: Order Comment: Speci men Type: STOOL SPECIMEN [facility] Address: [address] [place] [address] Performed By: #### 2 9771-3 #### [facility] CLIA [id number] [address] [place] [address] [place] Monocytes/100 WBC (Bld) 9.5 % Normal [facility] Comment on above: Order Comment: Speci men Type: STOOL SPECIMEN [facility] Address: [address] [place] [address] Performed By: #### 2 9771-3 #### [facility] CLIA [id number] [address] [place] [address] [place] Neutrophils (Bld) [#/Vol] 4.50 10*3/uL Normal 1.45-7.50 [facility] Comment on above: Order Comment: Speci men Type: STOOL SPECIMEN [facility] Address: [address] [place] [address] Performed By: #### 2 9771-3 #### [facility] CLIA [id number] [address] [place] [address] [place] Neutrophils/100 WBC (Bld) 63.2 % Normal [facility] Comment on above: Order Comment: Speci men Type: STOOL SPECIMEN [facility] Address: [address] [place] [address] Performed By: #### 2 9771-3 #### [facility] CLIA [id number] [address] [place] [address] [place] Nucleated RBC (Bld) [#/Vol] 10*3/uL Normal <0.01 [facility] Comment on above: Order Comment: Speci men Type: STOOL SPECIMEN [facility] Address: [address] [place] [address] Performed By: #### 2 9771-3 #### [facility] CLIA [id number] [address] [place] [address] [place] Nucleated RBC/100 WBC (Bld) [Ratio] 0.0 /100 WBC Normal [facility] Comment on above: Order Comment: Speci men Type: STOOL SPECIMEN [facility] Address: [address] [place] [address] Performed By: #### 2 9771-3 #### [facility] CLIA [id number] [address] [place] [address] [place] Platelet mean volume (Bld) [Entitic vol] 11.0 fL Normal 9.0-12.7 [facility] Comment on above: Order Comment: Speci men Type: STOOL SPECIMEN [facility] Address: [address] [place] [address] Performed By: #### 2 9771-3 #### [facility] CLIA [id number] [address] [place] [address] [place] Platelets (Bld) [#/Vol] 262 10*3/uL Normal 150-400 [facility] Comment on above: Order Comment: Speci men Type: STOOL SPECIMEN [facility] Address: [address] [place] [address] Performed By: #### 2 9771-3 #### [facility] CLIA [id number] [address] [place] [address] [place] RBC (Bld) [#/Vol] 4.13 10*6/uL Normal 3.90-5.20 [facility] Comment on above: Order Comment: Speci men Type: STOOL SPECIMEN [facility] Address: [address] [place] [address] Performed By: #### 2 9771-3 #### [facility] CLIA [id number] [address] [place] [address] [place] WBC (Bld) [#/Vol] 7.13 10*3/uL Normal 3.70-11.00 [facility] Comment on above: Order Comment: Speci men Type: STOOL SPECIMEN [facility] Address: [address] [place] [address] Performed By: #### 2 9771-3 #### [facility] CLIA [id number] [address] [place] [address] [place] Comprehensive metabolic 2000 panelon 02-19-2024 Albumin [Mass/Vol] 4.4 g/dL Normal 3.9-4.9 [facility] Comment on above: Order Comment: Speci men Type: STOOL SPECIMEN [facility] Address: [address] [place] [address] Performed By: #### 2 9771-3 #### [facility] CLIA [id number] [address] [place] [address] [place] ALP [Catalytic activity/Vol] 116 U/L Normal 34-123 [facility] Comment on above: Order Comment: Speci men Type: STOOL SPECIMEN [facility] Address: [address] [place] [address] Performed By: #### 2 9771-3 #### [facility] CLIA [id number] [address] [place] [address] [place] ALT [Catalytic activity/Vol] 15 U/L Normal 7-38 [facility] Comment on above: Order Comment: Speci men Type: STOOL SPECIMEN [facility] Address: [address] [place] [address] Performed By: #### 2 9771-3 #### [facility] CLIA [id number] [address] [place], [place] [address] [place] Anion gap [Moles/Vol] 12 mmol/L Normal 8-15 [facility] Comment on above: Order Comment: Speci men Type: STOOL SPECIMEN [facility] Address: [address] [place] [address] Performed By: #### 2 9771-3 #### [facility] CLIA [id number] [address] [place] [address] [place] AST [Catalytic activity/Vol] 21 U/L Normal 13-35 [facility] Comment on above: Order Comment: Speci men Type: STOOL SPECIMEN [facility] Address: [address] [place] [address] Performed By: #### 2 9771-3 #### [facility] CLIA [id number] [address] [place] [address] [place] Bilirubin [Mass/Vol] 0.5 mg/dL Normal 0.2-1.3 [facility] Comment on above: Order Comment: Speci men Type: STOOL SPECIMEN [facility] Address: [address] [place] [address] Performed By: #### 2 9771-3 #### [facility] CLIA [id number] [address] [place] [address] [place] Calcium [Mass/Vol] 9.3 mg/dL Normal 8.5-10.2 [facility] Comment on above: Order Comment: Speci men Type: STOOL SPECIMEN [facility] Address: [address] [place] [address] Performed By: #### 2 9771-3 #### [facility] CLIA [id number] [address] [place] [address] [place] Chloride [Moles/Vol] 102 mmol/L Normal 98-107 [facility] Comment on above: Order Comment: Speci men Type: STOOL SPECIMEN [facility] Address: [address] [place] [address] Performed By: #### 2 9771-3 #### [facility] CLIA [id number] [address] [place] [address] [place] CO2 [Moles/Vol] 25 mmol/L Normal 22-30 [facility] Comment on above: Order Comment: Speci men Type: STOOL SPECIMEN [facility] Address: [address] [place] [address] Performed By: #### 2 9771-3 #### [facility] CLIA [id number] [address] [place] [address] [place] Creatinine [Mass/Vol] 0.82 mg/dL Normal 0.58-0.96 [facility] Comment on above: Order Comment: Speci men Type: STOOL SPECIMEN [facility] Address: [address] [place] [address] Performed By: #### 2 9771-3 #### [facility] CLIA [id number] [address] [place] [address] [place] Creatinine and Glomerular filtration rate.predicted panel (S/P/Bld) 71 mL/min/1.73m??? Normal >=60 [facility] Comment on above: Order Comment: Speci men Type: STOOL SPECIMEN [facility] Address: [address] [place] [address] Result Comment: Halley mated Glomerular Filtration Rate (eGFR) is calculated using the 2020 CKD-EPI creatinine equation. This equation utilizes serum creatinine, sex, and age as parameters. The creatinine assay has traceable calibration to isotope dilution-mass spectrometry. Refer to KDIGO guidelines for clinical interpretation. In patients with unstable renal function, e.g. those with acute kidney injury, the eGFR may not accurately reflect actual GFR. Performed By: #### 2 9771-3 #### [facility] CLIA [id number] [address] [place] [address] [place] Glucose [Mass/Vol] 94 mg/dL Normal 74-99 [facility] Comment on above: Order Comment: Speci men Type: STOOL SPECIMEN [facility] Address: [address] [place] [address] Result Comment: The [place] [employer] (ADA) provides guidance for cutoff [...] Standards of Medical Care in Diabetes 2016, [place] [employer]. Diabetes Care. 2016.39(Suppl 1). Performed By: #### 2 9771-3 #### [facility] CLIA [id number] [address] [place] [address] [place] Potassium [Moles/Vol] 4.4 mmol/L Normal 3.7-5.1 [facility] Comment on above: Order Comment: Speci men Type: STOOL SPECIMEN [facility] Address: [address] [place], [place] [address] Performed By: #### 2 9771-3 #### [facility] CLIA [id number] [address] [place] [address] [place] Protein [Mass/Vol] 6.8 g/dL Normal 6.3-8.0 [facility] Comment on above: Order Comment: Speci men Type: STOOL SPECIMEN [facility] Address: [address] [place] [address] Performed By: #### 2 9771-3 #### [facility] CLIA [id number] [address] [place] [address] [place] Sodium [Moles/Vol] 139 mmol/L Normal 136-144 [facility] Comment on above: Order Comment: Speci men Type: STOOL SPECIMEN [facility] Address: [address] [place] [address] Performed By: #### 2 9771-3 #### [facility] CLIA [id number] [address] [place] [address] [place] Urea nitrogen [Mass/Vol] 17 mg/dL Normal 7-21 [facility] Comment on above: Order Comment: Speci men Type: STOOL SPECIMEN [facility] Address: [address] [place] [address] Performed By: #### 2 9771-3 #### [facility] CLIA [id number] [address] [place] [address] [place] Lipid 1996 panelon 4 Cholesterol [Mass/Vol] 252 mg/dL High <200 [facility] Comment on above: Order Comment: Speci men Type: STOOL SPECIMEN [facility] Address: [address] [place] [address] Result Comment: <200 mg/dL, Desirable 200-239 mg/dL, Borderline high >239 mg/dL, High Performed By: #### 2 9771-3 #### [facility] CLIA [id number] [address] [place] [address] [place] Cholesterol in HDL [Mass/Vol] 100 mg/dL Normal >39 [facility] Comment on above: Order Comment: Speci men Type: STOOL SPECIMEN [facility] Address: [address] [place] [address] Result Comment: 40-5 9 mg/dL, Acceptable >59 mg/dL, High: Negative risk factor for coronary heart disease <40 mg/dL, Low: Positive risk factor for coronary heart disease Performed By: #### 2 9771-3 #### [facility] CLIA [id number] [address] [place] [address] [place] Cholesterol in LDL [Mass/Vol] 134 mg/dL High <100 [facility] Comment on above: Order Comment: Speci men Type: STOOL SPECIMEN [facility] Address: [address] [place] [address] Result Comment: <100 mg/dL, Optimal 100-129 mg/dL, Near optimal/above optimal 130-159 mg/dL, Borderline high 160-189 mg/dL, High >189 mg/dL, Very high Secondary prevention optimal LDL Cholesterol levels are recommended to be < 70 mg/dL Performed By: #### 2 9771-3 #### [facility] CLIA [id number] [address] [place] [address] [place] [facility] Cholesterol in LDL/Cholesterol in HDL [Mass ratio] 1.34 {ratio} Normal <2.54 [facility] Comment on above: Order Comment: Speci men Type: STOOL SPECIMEN [facility] Address: [address] [place] [address] Result Comment: Refe rence: 1. National Cholesterol Education Program ATP III Guideline At-A-Glance Quick Desk Reference: National Heart, Lung, and Blood [place]. National Institutes of Health. 2001: NIH Publication No. 01-3305. 2. An International Atherosclerosis Society position paper: global recommendations for the management of dyslipidemia: executive summary, Atherosclerosis. 2014: 232(2):410-413. Performed By: #### 2 9771-3 #### [facility] CLIA [id number] [address] [place] [address] [place] Cholesterol in VLDL [Mass/Vol] 18 mg/dL Normal <30 [facility] Comment on above: Order Comment: Speci men Type: STOOL SPECIMEN [facility] Address: [address] [place] [address] Performed By: #### 2 9771-3 #### [facility] CLIA [id number] [address] [place] [address] [place] Cholesterol non HDL [Mass/Vol] 152 mg/dL High <130 [facility] Comment on above: Order Comment: Speci men Type: STOOL SPECIMEN [facility]ing [facility]: [facility] Address: [address] [place] [address] Result Comment: <130 mg/dL, Optimal 130-159 mg/dL, Near optimal/above optimal 160-189 mg/dL, Borderline high 190-219 mg/dL, High >219 mg/dL, Very high Secondary prevention optimal non HDL Cholesterol levels are recommended to be <100 mg/dL Performed By: #### 2 9771-3 #### [facility] CLIA [id number] [address] [place] [address] [place] Cholesterol.total/Choles terol in HDL [Mass ratio] 2.52 {ratio} Normal <5.10 [facility] Comment on above: Order Comment: Speci men Type: STOOL SPECIMEN [facility]ing Facility: [facility] Address: [address] [place] [address] Performed By: #### 2 9771-3 #### [facility] CLIA [id number] [address] [place] [address] [place] FASTING TIME 12 hrs Normal [facility] Comment on above: Order Comment: Speci men Type: STOOL SPECIMEN [facility] Address: [address] [place] [address] Performed By: #### 2 9771-3 #### [facility] CLIA [id number] [address] [place] [address] [place] Triglyceride [Mass/Vol] 91 mg/dL Normal <150 [facility] Comment on above: Order Comment: Speci men Type: STOOL SPECIMEN [facility]ing [facility] Address: [address] [place] [address] Result Comment: <150 mg/dL, Normal 150-199 mg/dL, Borderline high 200-499 mg/dL, High >499 mg/dL, Very high Performed By: #### 2 9771-3 #### [facility] CLIA [id number] [address] [place] [address] [place] T4 Free SerPl-mCncon 024 Free T4 [Mass/Vol] 1.6 ng/dL Normal 0.9-1.7 [facility] Comment on above: Order Comment: Speci men Type: STOOL SPECIMEN [facility]ing [facility] Address: [address] [place] [address] Performed By: #### 2 9771-3 #### [facility] CLIA [id number] [address] [place] [address] [place] TSH SerPl-aCncon 02-19-2024 TSH Qn 0.880 m[IU]/L Normal 0.270-4.200 [facility] Comment on above: Order Comment: Speci men Type: STOOL SPECIMEN [facility] Address: [address] [place] [address] Performed By: #### 2 9771-3 #### [facility] CLIA [id number] [address] [place] [address] [place] Vit B12 SerPl-mCncon 024 Cobalamin (Vitamin B12) [Mass/Vol] 537 pg/mL Normal 232-1245 [facility] Comment on above: Order Comment: Speci men Type: BLOOD SPECIMENOrdering Facility: [facility] Address: [address] [place] [address] Performed By: #### 2 132-9 ####[facility] [id number] [place] [address] [place] CNPElizabeth 02-09-2024 CNPN Telephone (FAMPWS) HARJIT BRADSHAW Senia ([id number]) 1940 F Date Time Provider Department 02/09/24 VINI SPARKS FAMPWS During your visit today, we recorded the following information about you: Jyoti Santoyo 02/09/2024 3:19 PM Signed Ica is calling Vini Sparks DO today with concern regarding Lab Orders Patient would like to do lab work prior to upcoming appointment. Thank you. Patient has been identified by name and birthdate. Duration of symptoms: N/A Person calling: self Call patient at: at home [phone] (home) Was an appointment scheduled: No Closing statement: Results or non-symptom based questions: Thank you for calling [facility], your call will be returned within the next business day. Vini Peres DO 02/10/2024 12:35 PM Signed Orders placed for fasting labs Please inform patient DO Cortez Díaz Amanda, RN 02/12/2024 10:58 AM Signed Pt called and is notified of providers message and instructions. Pt voices understanding. Talia Toro RN Allergies As of Date: 02/09/2024 Noted Allergy Reaction MORPHINE 03/03/2014 1 - Mental Status Change 5 - Intolerance 8 - GI Upset Date Reviewed: 12/04/2023 Reviewed by: 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 APRN.MAINTENANCE AND CUSTODIAN SUPERVISOR - Fully Assessed Reason for Visit: Lab Orders [1688] Primary Visit Diagnosis:Hypothyroid ism, acquired [E03.9] Other Visit Diagnoses:Dyslipidemi a [E78.5] Vitamin D deficiency [E55.9] Vitamin B12 deficiency [E53.8] Order(s):COMPREHENSIV E METABOLIC PANEL [SQCMP] Order #: [id number] FUTURE COMPLETE BLOOD COUNT AND DIFFERENTIAL [SQCBCDIF] Order #: [id number] FUTURE LIPID PANEL BASIC [SQLIPB] Order #: [id number] FUTURE THYROID STIMULATING HORMONE [SQTSH] Order #: [id number] FUTURE T4 FREE/FREE THYROXINE [SQFT4] Order #: [id number] FUTURE VITAMIN D 25 HYDROXY [SQVITD] Order #: [id number] FUTURE VITAMIN B12 [SQB12] Order #: [id number] FUTURE Prescriptions as of 02/12/2024 - losartan [...] (HCC) [F33.9] 08/15/2022 Encounter Status:Closed by TALIA TORO on 02/12/24 Normal [facility] CBC W Auto Differential pane l (Bld)on 08-22-2023 Basophils (Bld) [#/Vol] 0.09 10*3/uL [facility] Basophils/100 WBC (Bld) 1.3 % [facility] Differential cell count method Nom (Bld) Auto [facility] Eosinophils (Bld) [#/Vol] 0.23 10*3/uL [facility] Eosinophils/100 WBC (Bld) 3.4 % [facility] Erythrocyte distribution width (RBC) [Ratio] 14.7 % 11.5 - 15.0 % [facility] Hematocrit (Bld) [Volume fraction] 38.5 % 36.0 - 46.0 % [facility] Hemoglobin (Bld) [Mass/Vol] 12.2 g/dL 11.5 - 15.5 g/dL [facility] Immature granulocytes (Bld) [#/Vol] 0.03 10*3/uL [facility] Immature granulocytes/100 WBC (Bld) 0.4 % [facility] Lymphocytes (Bld) [#/Vol] 1.35 10*3/uL [facility] Lymphocytes/100 WBC (Bld) 19.7 % [facility] MCH (RBC) [Entitic mass] 30.0 pg 26. 0 - 34.[address] [facility] MCHC (RBC) [Mass/Vol] 31.7 g/dL 30.5 - 36.0 g/dL [facility] MCV (RBC) [Entitic vol] 94.8 fL 80.0 - 100.[address] [facility] Monocytes (Bld) [#/Vol] 0.70 10*3/uL [facility] Monocytes/100 WBC (Bld) 10.2 % [facility] Neutrophils (Bld) [#/Vol] 4.46 10*3/uL [facility] Neutrophils/100 WBC (Bld) 65.0 % [facility] Nucleated RBC (Bld) [#/Vol] NINF [facility] Nucleated RBC/100 WBC (Bld) [Ratio] 0.0 % /[address] [facility] Platelet mean volume (Bld) [Entitic vol] 11.6 fL 9.0 - 12.[address] [facility] Platelets (Bld) [#/Vol] 269 10*3/uL [facility] RBC (Bld) [#/Vol] 4.06 10*6/uL 3.90 - 5.2 0 m/uL [facility] WBC (Bld) [#/Vol] 6.86 10*3/uL [facility] Cobalamin (Vitamin B12) [Mas s/Vol]on 08-22-2023 Interpretation and review of laboratory results Normal [facility] Comprehensive metabolic 2000 panelon 08-22-2023 Albumin [Mass/Vol] 4.2 g/dL 3.9 - 4.9 g/dL [facility] ALP [Catalytic activity/Vol] 113 U/L 34 - 123 U/L [facility] ALT [Catalytic activity/Vol] 18 U/L 7 - 38 U/L [facility] Anion gap [Moles/Vol] 12 mmol/L 9 - 18 mmol/L [facility] AST [Catalytic activity/Vol] 28 U/L 13 - 35 U/L [facility] Bilirubin [Mass/Vol] 0.4 mg/dL 0.2 - 1 .3 mg/dL [facility] Calcium [Mass/Vol] 9.5 mg/dL 8.5 - 10. 2 mg/dL [facility] Chloride [Moles/Vol] 105 mmol/L 97 - 10 5 mmol/L [facility] CO2 [Moles/Vol] 23 mmol/L 22 - 30 mmol/L [facility] Creatinine [Mass/Vol] 0.76 mg/dL 0.58 - 0.96 mg/dL [facility] GFR/1.73 sq M.predicted among non-blacks MDRD (S/P/Bld) [Vol rate/Area] 78 mL/min/{1.73_m2} - PINF [facility] Comment on above: Estimated Glomerular Filtration Rate (eGFR) is calculated using the 2020 CKD-EPI creatinine equation. This equation utilizes serum creatinine, sex, and age as parameters. The creatinine assay has traceable calibration to isotope dilution-mass spectrometry. Refer to KDIGO guidelines for clinical interpretation. In patients with unstable renal function, e.g. those with acute kidney injury, the eGFR may not accurately reflect actual GFR. Glucose [Mass/Vol] 94 mg/dL 74 - 99 mg/dL [facility] Comment on above: The [place] Diab[employer] s Association (ADA) provides guidance for cutoff values [...] Standards of Medical Care in Diabetes 2016, [place] [employer]. Diabetes Care. 2016.39(Suppl 1). Interpretation and review of laboratory results Normal [facility] Potassium [Moles/Vol] 4.8 mmol/L 3.7 - 5.1 mmol/L [facility] Protein [Mass/Vol] 7.1 g/dL 6.3 - 8.0 g/dL [facility] Sodium [Moles/Vol] 140 mmol/L 136 - 144 mmol/L [facility] Urea nitrogen [Mass/Vol] 17 mg/dL 7 - 21 mg/d L [facility] Lipid 1996 panelon 4 Cholesterol [Mass/Vol] 204 mg/dL High NINF - 200 mg/dL [facility] Comment on above: <200 mg/dL, Desirabl e 200-239 mg/dL, Borderline high >239 mg/dL, High Cholesterol in HDL [Mass/Vol] 90 mg/dL 39 - PINF mg/dL [facility] Comment on above: 40-59 mg/dL, Accepta ble >59 mg/dL, High: Negative risk factor for coronary heart disease <40 mg/dL, Low: Positive risk factor for coronary heart disease Cholesterol in LDL [Mass/Vol] 97 mg/dL NINF - 100 mg/dL [facility] Comment on above: <100 mg/dL, Optimal 100-129 mg/dL, Near optimal/above optimal 130-159 mg/dL, Borderline high 160-189 mg/dL, High >189 mg/dL, Very high Secondary prevention optimal LDL Cholesterol levels are recommended to be < 70 mg/dL Cholesterol in LDL/Cholesterol in HDL [Mass ratio] 1.08 {ratio} NINF - 2.54 [facility] Comment on above: Reference: 1. National Cholesterol Education Program ATP III Guideline At-A-Glance Quick Desk Reference: National Heart, Lung, and Blood [place]. National Institutes of Health. 2001: NIH Publication No. 01-3305. 2. An International Atherosclerosis Society position paper: global recommendations for the management of dyslipidemia: executive summary, Atherosclerosis. 2014: 232(2):410-413. Cholesterol in VLDL [Mass/Vol] 17 mg/dL NINF - 30 mg/dL [facility] Cholesterol non HDL [Mass/Vol] 114 mg/dL NINF - 130 mg/dL [facility] Comment on above: <130 mg/dL, Optimal 130-159 mg/dL, Near optimal/above optimal 160-189 mg/dL, Borderline high 190-219 mg/dL, High >219 mg/dL, Very high Secondary prevention optimal non HDL Cholesterol levels are recommended to be <100 mg/dL Cholesterol.total/Choles terol in HDL [Mass ratio] 2.27 {ratio} NINF - 5.10 [facility] Fasting Time [address] [facility] Interpretation and review of laboratory results Abnormal [facility] Triglyceride [Mass/Vol] 84 mg/dL NINF - 150 mg/dL [facility] Comment on above: <150 mg/dL, Normal 150-199 mg/dL, Borderline high 200-499 mg/dL, High >499 mg/dL, Very high No Panel Informationon 08-21 Interpretation and review of laboratory results Normal [facility] T4 FREE/FREE THYROXINEon Free T4 [Mass/Vol] 1.4 ng/dL 0.9 - 1.7 ng/dL [facility] THYROID STIMULATING HORMONEo n 08-22-2023 TSH Qn 0.747 m[IU]/L [facility] VITAMIN B12on 08-22-2023 Cobalamin (Vitamin B12) [Mass/Vol] 516 pg/mL 232 - 1245 pg/mL [facility] XR Chest PA and Lateralon IMPRESSION: Stable exam without acute findings. Freight Breaker: PSCCarmen Transcribe Date/Time: Jan 09 2023 11:32A Dictated by : SHAVON DUMONT MD This examination was interpreted and the report reviewed and electronically signed by: SHAVON DUMONT MD on Jan 09 2023 11:34AM [facility] DIVISION OF RADIOLOGY * * *Final Report* * * DATE OF EXAM: Jan 09 2023 11:24AM WOX 5291 - XR CHEST 2V FRONTAL/LAT / PROCEDURE REASON: Acute cough * * * * Physician Interpretation * * * * EXAMINATION: CHEST RADIOGRAPH (2 VIEW FRONTAL & LATERAL) CLINICAL HISTORY: Acute cough MQ: XC2_6 EXAM DATE/TIME: 01/09/2023 11:24 AM COMPARISON: Chest x-ray on 01/17/2022 RESULT: Lines, tubes, and devices: None. Lungs and pleura: No consolidation. No lung mass. No pleural effusion. No pneumothorax. Large bilateral pericardial fat pads are visualized. Cardiomediastinal silhouette: Stable cardiomediastinal silhouette. Bones and soft tissues: Status post bilateral shoulder reverse arthroplasty. The spine shows degenerative changes. DIVISION OF RADIOLOGY Provider, [facility] Luana garcia [place] - 01/09/2023 * * *Final Report* * * DATE OF EXAM: Jan 09 2023 11:24AM WOX 5291 - XR CHEST 2V FRONTAL/LAT / PROCEDURE REASON: Acute cough * * * * Physician Interpretation * * * * EXAMINATION: CHEST RADIOGRAPH (2 VIEW FRONTAL & LATERAL) CLINICAL HISTORY: Acute cough MQ: XC2_6 EXAM DATE/TIME: 01/09/2023 11:24 AM COMPARISON: Chest x-ray on 01/17/2022 RESULT: Lines, tubes, and devices: None. Lungs and pleura: No consolidation. No lung mass. No pleural effusion. No pneumothorax. Large bilateral pericardial fat pads are visualized. Cardiomediastinal silhouette: Stable cardiomediastinal silhouette. Bones and soft tissues: Status post bilateral shoulder reverse arthroplasty. The spine shows degenerative changes. IMPRESSION IMPRESSION: Stable exam without acute findings. Freight Breaker: PSCB Transcribe Date/Time: Jan 09 2023 11:32A Dictated by : SHAVON DUMONT MD This examination was interpreted and the report reviewed and electronically signed by: SHAVON DUMONT MD on Jan 09 2023 11:34AM EST [facility] Radiology Study observation (narrative) Carlos dowling [employer] XR Chest PA and LateralOrder ed By: Ccf Provider on 01-09-2023 [facility] AMBROSE SCREENING W TOMOon 01-05 [facility] ED NOTEon 01-18-2022 ED NOTE HNO ID: [id number] Author: Lulu Hurtado RN Service: Emergency Medicine Author Type: Registered Nurse Type: ED Notes Filed: 01/18/2022 4:46 PM Note Text: Pt verbalizes understanding of discharge instructions. Denies further questions, comments, concerns at this time. Continues to report that she is feeling much better. [facility] ED NOTE HNO ID: [id number] Author: Lulu Hurtado RN Service: Emergency Medicine Author Type: Registered Nurse Type: ED Notes Filed: 01/18/2022 4:08 PM Note Text: Pt sleeping. Awakens to voice and states that she is feeling much better. [facility] ED NOTE HNO ID: [id number] Author: Lulu Hurtado RN Service: Emergency Medicine Author Type: Registered Nurse Type: ED Notes Filed: 01/18/2022 2:47 PM Note Text: Physician to bedside. [facility] ED NOTE HNO ID: [id number] Author: Lulu Hurtado RN Service: Emergency Medicine Author Type: Registered Nurse Type: ED Notes Filed: 01/18/2022 2:47 PM Note Text: Pts standing at door shouting at staff and asking, Is there a doctor even here? Pt and family were educated on emergency room staff and that the physician is currently assisting other emergencies in the department. Pt assessment unchanged. She and family remain anxious. VS as charted. Charge nurse to bedside to speak with patient and family. Patient and family deny further questions, comments, concerns at this time. Pt refuses warm blankets. States position of comfort. Verbalizes understanding to inform staff of any change in condition or needs. Call light in reach. [facility] ED NOTE HNO ID: [id number] Author: Lulu Hurtado RN Service: Emergency Medicine Author Type: Registered Nurse Type: ED Notes Filed: 01/18/2022 2:30 PM Note Text: Pt comes in stating that her bp is high and she has had a headache x1 month. She was seen and treated yesterday for the same symptoms and, whatever you guys gave me it worked. She states that her bp was elevated this morning at home then came down to high normal levels after she took her bp medication but states it has been rising for the last couple hours. She had an apt with her PCP today for follow up and canceled it bc she felt she needed to be seen sooner. She appears in NAD. VS as charted including manual bp. Unable to use left arm for vs post mastectomy. Pt is anxious. Emotional support offered. Family at bedside. Call light in reach. [facility] ED PROV NOTEon 01-18-2022 ED PROV NOTE HNO ID: [id number] Author: Juan Jaimes MD Service: Emergency Medicine Author Type: Physician Type: ED Provider Notes Filed: 01/18/2022 6:30 PM Note Text: ED Provider Note Patient Name: Harjit Bradshaw : 1940 SERVICE DATE: 01/18/22 History Patient presents with: Hypertension Patient brought to the emergency department by her family, for concerns of hypertension and headache. This is patient's second visit for the same in two days. Patient is noted to have blood pressures greater than 200 systolic at home, and she is still complaining of a headache. Patient reports taking her normal blood pressure medications approximate 9 AM this morning, however she not take anything for the headache. Patient mitts to headache, however she states is not that bad since he come to the ER, described as some of a throbbing sensation in the front part of her head, and this is similar to yesterday. Patient has no blurry vision, no loss conscious, no focal weakness, no unilateral complaints, patient has no chest pain, dyspnea. Patient has no leg swelling. Hypertension Severity: Moderate Onset quality: Unable to specify Chronicity: New Relieved by: Nothing Ineffective treatments: Beta blockers Associated symptoms: headaches Associated symptoms: no abdominal pain, no blurred vision, no chest pain, no confusion, no dizziness, no fever, no loss of consciousness, no palpitations, no peripheral edema, no shortness of breath and not vomiting Risk factors comment: Remote hx of alcohol abuse PAST MEDICAL HISTORY Diagnosis Date Anxiety Bilateral malignant neoplasm of central portion of breast in female (HCC) Disorder of bone and cartilage, unspecified Microcalcifications of the breast 11/24/2015 left Osteoarthrosis, unspecified whether generalized or localized, other specified sites knees Other and unspecified hyperlipidemia Unspecified hypothyroidism PAST SURGICAL HISTORY Procedure Laterality Date ARTHROPLASTY TOTAL SHOULDER Right 11/28/2017 Dr. David Nieto; R reverse total shoulder replacment ARTHROPLASTY TOTAL SHOULDER Left 01/09/2019 Dr. David Nieto @ [facility]; L reverse total shoulder replacement; L distal clavicle resection ARTHRP KNE CONDYLEANDPLATU MEDIALANDLAT COMPARTMENTS 2008 Knee replacement, total, bilateral BX BREAST W/DEVICE 1ST LESION STEREOTACTIC GUID Left 11/24/2015 BX/EXC LYMPH NODE OPEN DEEP AXILLARY NODE Left 12/07/2015 CHOLECYSTECTOMY Cholecystectomy INJ RADIOACTIVE TRACER FOR ID OF SENTINEL NODE 12/07/2015 MASTECTOMY, SIMPLE, COMPLETE Left 12/07/2015 TONSILLECTOMY HX FAMILY HISTORY Problem Relation Age of Onset Cancer Mother ? no details, 85 Coronary Artery Disease Father [place], 94 Cancer Sister 57 liver Cancer Brother 50 Acute leukemia Cancer Brother Unknown type of cancer Cancer Brother ?Lung--Unknown type of cancer Cancer Sister 70 Breast cancer Cancer Sister lung Cancer Sister Rheumatologic disease Sister Cancer Brother lung COPD Brother Heart Brother Social History Tobacco Use Smoking status: Never Smokeless tobacco: Never Vaping Use Vaping Use: Never used Substance and Sexual Activity Alcohol use: Not Currently Comment: couple times a week Drug use: No Sexual activity: Yes Partners: Male ALLERGIES Allergen Reactions Morphine Mental Status Change, Intolerance, GI Upset Review of Systems Constitutional: Negative for fever. Eyes: Negative for blurred vision. Respiratory: Negative for shortness of breath. Cardiovascular: Negative for chest pain and palpitations. Gastrointestinal: Negative for abdominal pain and vomiting. Neurological: Positive for headaches. Negative for dizziness and loss of consciousness. Psychiatric/Behaviora l: Negative for confusion. All other systems reviewed and are negative. Physical Exam Vitals [01/18/22 1359] BP Pulse Temp Temp src Resp SpO2 Weight Height (!) 232/109 58 36.1 ?C (97 ?F) Temporal 17 100 % 76.7 kg (169 lb) -- Physical Exam Vitals and nursing note reviewed. Constitutional: General: She is not in acute distress. Appearance: Normal appearance. She is not ill-appearing or toxic-appearing. HENT: Head: Normocephalic and atraumatic. Eyes: General: Right eye: No discharge. Left eye: No discharge. Cardiovascular: Rate and Rhythm: Regular rhythm. Bradycardia present. Pulses: Normal pulses. Heart sounds: No murmur heard. Pulmonary: Effort: No respiratory distress. Abdominal: General: There is no distension. Tenderness: There is no abdominal tenderness. There is no guarding. Musculoskeletal: Right lower leg: No edema. Left lower leg: No edema. Skin: General: Skin is warm and dry. Neurological: General: No focal deficit present. Mental Status: She is alert and oriented to person, place, and time. Mental status is at baseline. Comments: Patient is alert and oriented (more content not included)... Normal [facility] Basic metabolic 2000 panelon 01-17-2022 Anion gap [Moles/Vol] 10 mmol/L Normal 9-18 [facility] Comment on above: Order Comment: Marychuy andrew Type: BLOOD SPECIMEN Ordering Facility: [facility] Address: [address] [place] [address] Performed By: #### 3 016-3, 28589-2 #### [facility] CLIA [id number] [address] [place] [address] [place] Calcium [Mass/Vol] 9.5 mg/dL Normal 8.5-10.2 [facility] Comment on above: Order Comment: Marychuy andrew Type: BLOOD SPECIMEN Ordering Facility: [facility] Address: [address] [place] [place] [address] Performed By: #### 3 016-3, 85257-3 #### [facility] CLIA [id number] [address] [place] Chloride [Moles/Vol] 104 mmol/L Normal 97-105 [facility] Comment on above: Order Comment: Speci men Type: BLOOD SPECIMEN Ordering Facility: [facility] Address: [address] [place] [address] Performed By: #### 3 016-3, 84932-3 #### [facility] CLIA [id number] [address] [place] [id number] [place] CO2 [Moles/Vol] 28 mmol/L Normal 22-30 [facility] Comment on above: Order Comment: Speci men Type: BLOOD SPECIMEN Ordering Facility: [facility] Address: [address] [place] [address] Performed By: #### 3 016-3, 02080-5 #### [facility] CLIA [id number] [address] OF [facility] Creatinine [Mass/Vol] 0.76 mg/dL Normal 0.58-0.96 [facility] Comment on above: Order Comment: Speci men Type: BLOOD SPECIMEN Ordering Facility: [facility] Address: [address] [place] [address] Performed By: #### 3 016-3, 50543-6 #### [facility] CLIA [id number] [address] ESTIMATED GLOMERULAR FILTRATION RATE 79 mL/min/1.73m??? Normal >=60 [facility] Comment on above: Order Comment: Speci men Type: BLOOD SPECIMEN Ordering Facility: [facility] Address: [address] [place] [address] Result Comment: Halley mated Glomerular Filtration Rate (eGFR) is calculated using the 2020 CKD-EPI creatinine equation. This equation utilizes serum creatinine, sex, and age as parameters. The creatinine assay has traceable calibration to isotope dilution-mass spectrometry. Refer to KDIGO guidelines for clinical interpretation. In patients with unstable renal function, e.g. those with acute kidney injury, the eGFR may not accurately reflect actual GFR. Performed By: #### 3 016-3, 54975-7 #### [facility] CLIA [id number] [address] [place] [address] [place] Glucose [Mass/Vol] 106 mg/dL High 74-99 [facility] Comment on above: Order Comment: Marychuy andrew Type: BLOOD SPECIMEN Ordering Facility: [facility] Address: [address] [place], [place] [address] Result Comment: The [place] Diabetes Association (ADA) provides guidance for cutoff [...] Standards of Medical Care in Diabetes 2016, [place] Diabetes Association. Diabetes Care. 2016.39(Suppl 1). Performed By: #### 3 016-3, 05340-4 #### [facility] CLIA [id number] [address] [place] [address] [place] Potassium [Moles/Vol] 4.1 mmol/L Normal 3.7-5.1 [facility] Comment on above: Order Comment: Marychuy andrew Type: BLOOD SPECIMEN Ordering Facility: [facility] Address: [address] [place] [id number] Performed By: #### 3 016-3, 15796-4 #### [facility] CLIA [id number] [address] [place] [address] [place] Sodium [Moles/Vol] 142 mmol/L Normal 136-144 [facility] Comment on above: Order Comment: Marychuy andrew Type: BLOOD SPECIMEN Ordering Facility: [facility] Address: [address] [place] [address] Performed By: #### 3 016-3, 78613-1 #### [facility] CLIA [id number] [address] Urea nitrogen [Mass/Vol] 16 mg/dL Normal 7-21 [facility] Comment on above: Order Comment: Speci men Type: BLOOD SPECIMEN Ordering Facility: [facility] Address: [address] [place] [address] Performed By: #### 3 016-3, 64446-1 #### [facility] CLIA [id number] [address] CBC W Auto Differential pane l (Bld)on 01-17-2022 Basophils (Bld) [#/Vol] 0.04 10*3/uL Normal <0.11 [facility] Comment on above: Order Comment: Speci men Type: BLOOD SPECIMEN Ordering Facility: [facility] Address: [address] [place] [address] Performed By: #### 5 7021-8 #### [facility] CLIA [id number] [address] [place] [address] Basophils/100 WBC (Bld) 0.5 % Normal [facility] Comment on above: Order Comment: Speci men Type: BLOOD SPECIMEN Ordering Facility: [facility] Address: [address] [place] [address] Performed By: #### 5 7021-8 #### [facility] CLIA [id number] [address] Differential cell count method Nom (Bld) Auto Normal [facility] Comment on above: Order Comment: Speci men Type: BLOOD SPECIMEN Ordering Facility: [facility] Address: [address] [place] [address] Performed By: #### 5 7021-8 #### [facility] CLIA [id number] [address] [place] Eosinophils (Bld) [#/Vol] 0.27 10*3/uL Normal <0.46 [facility] Comment on above: Order Comment: Speci men Type: BLOOD SPECIMEN Ordering Facility: [facility] Address: [address] [place] [address] Performed By: #### 5 7021-8 #### [facility] CLIA [id number] [address] [place] Eosinophils/100 WBC (Bld) 3.3 % Normal [facility] Comment on above: Order Comment: Speci men Type: BLOOD SPECIMEN Ordering Facility: [facility] Address: [address] [place] [address] Performed By: #### 5 7021-8 #### [facility] CLIA [id number] [address] [place] Erythrocyte distribution width (RBC) [Ratio] 13.0 % Normal 11.5-15.0 [facility] Comment on above: Order Comment: Speci men Type: BLOOD SPECIMEN Ordering Facility: [facility] Address: [address] [place] [address] Performed By: #### 5 7021-8 #### [facility] CLIA [id number] [address] [place] Hematocrit (Bld) [Volume fraction] 38.1 % Normal 36.0-46.0 [facility] Comment on above: Order Comment: Speci men Type: BLOOD SPECIMEN Ordering Facility: [facility] Address: [address] [place] [address] Performed By: #### 5 7021-8 #### [facility] CLIA [id number] 225 [address] [address] [place] Hemoglobin (Bld) [Mass/Vol] 12.7 g/dL Normal 11.5-15.5 [facility] Comment on above: Order Comment: Speci men Type: BLOOD SPECIMEN Ordering Facility: [facility] Address: [address] [address] Performed By: #### 5 7021-8 #### [facility] CLIA [id number] [address] [place] [address] [place] Lymphocytes (Bld) [#/Vol] 1.63 10*3/uL Normal 1.00-4.00 [facility] Comment on above: Order Comment: Speci men Type: BLOOD SPECIMEN Ordering Facility: [facility] Address: [address] [place] [address] Performed By: #### 5 7021-8 #### [facility] CLIA [id number] [address] [place] [address] Lymphocytes/100 WBC (Bld) 20.0 % Normal [facility] Comment on above: Order Comment: Speci men Type: BLOOD SPECIMEN Ordering Facility: [facility] Address: [address] [place] [address] Performed By: #### 5 7021-8 #### [facility] CLIA [id number] [address] [place] [address] OF [facility] MCH (RBC) [Entitic mass] 30.7 pg Normal 26.0-34.0 [facility] Comment on above: Order Comment: Speci men Type: BLOOD SPECIMEN Ordering Facility: [facility] Address: [address] [place] [address] Performed By: #### 5 7021-8 #### [facility] CLIA [id number] [address] [place] [address] OF [facility] MCHC (RBC) [Mass/Vol] 33.3 g/dL Normal 30.5-36.0 [facility] Comment on above: Order Comment: Speci men Type: BLOOD SPECIMEN Ordering Facility: [facility] Address: [address] [place] [address] Performed By: #### 5 7021-8 #### [facility] CLIA [id number] [address] MCV (RBC) [Entitic vol] 92.0 fL Normal 80.0-100.0 [facility] Comment on above: Order Comment: Speci men Type: BLOOD SPECIMEN Ordering Facility: [facility] Address: [address] [place] [address] Performed By: #### 5 7021-8 #### [facility] CLIA [id number] [address] [place] [address] [place] Monocytes (Bld) [#/Vol] 0.69 10*3/uL Normal <0.87 [facility] Comment on above: Order Comment: Speci men Type: BLOOD SPECIMEN Ordering Facility: [facility] Address: [address] [place] [address] Performed By: #### 5 7021-8 #### [facility] CLIA [id number] [address] [place], [place] [address] [place] [address] [place] Monocytes/100 WBC (Bld) 8.5 % Normal [facility] Comment on above: Order Comment: Speci men Type: BLOOD SPECIMEN Ordering Facility: [facility] Address: [address] [place] [address] Performed By: #### 5 7021-8 #### [facility] CLIA [id number] [address] [place] [address] [place] Neutrophils (Bld) [#/Vol] 5.52 10*3/uL Normal 1.45-7.50 [facility] Comment on above: Order Comment: Speci men Type: BLOOD SPECIMEN Ordering Facility: [facility] Address: [address] [place] [address] Performed By: #### 5 7021-8 #### [facility] CLIA [id number] [address] [place] Neutrophils/100 WBC (Bld) 67.7 % Normal [facility] Comment on above: Order Comment: Speci men Type: BLOOD SPECIMEN Ordering Facility: [facility] Address: [address] [place] [address] Performed By: #### 5 7021-8 #### [facility] CLIA [id number] [address] [place] [address] [place] Platelet mean volume (Bld) [Entitic vol] 11.1 fL Normal 9.0-12.7 [facility] Comment on above: Order Comment: Speci men Type: BLOOD SPECIMEN Ordering Facility: [facility] Address: [address] [place] [address] Performed By: #### 5 7021-8 #### [facility] CLIA [id number] [address] [place] [address] [place] Platelets (Bld) [#/Vol] 261 10*3/uL Normal 150-400 [facility] Comment on above: Order Comment: Speci men Type: BLOOD SPECIMEN Ordering Facility: [facility] Address: [address] [place] [address] Performed By: #### 5 7021-8 #### [facility] CLIA [id number] [address] [place] [address] [place] RBC (Bld) [#/Vol] 4.14 10*6/uL Normal 3.90-5.20 [facility] Comment on above: Order Comment: Speci men Type: BLOOD SPECIMEN Ordering Facility: [facility] Address: [address] [place] [address] Performed By: #### 5 7021-8 #### [facility] CLIA [id number] [address] [place] [address] [place] WBC (Bld) [#/Vol] 8.15 10*3/uL Normal 3.70-11.00 [facility] Comment on above: Order Comment: Speci men Type: BLOOD SPECIMEN Ordering Facility: [facility] Address: [address] [place] [address] Performed By: #### 5 7021-8 #### [facility] CLIA [id number] [address] [place], [place] [address] [place] [address] [place] [address] [address] BRAIN WO IVCONon 01-18-[address] BRAIN WO IVCON * * *Final Report* * * DATE OF EXAM: Jan 17 2022 2:39PM [facility] 0504 - CT BRAIN WO IVCON / PROCEDURE REASON: Headache, new or worsening (Age >= 50y) * * * * Physician Interpretation * * * * EXAMINATION: CT BRAIN WO IVCON CLINICAL HISTORY: Headache new or worsening TECHNIQUE: Serial axial images without IV contrast were obtained from the vertex to the foramen magnum. MQ: CTBWO_3 CT Radiation dose: Integrated Dose-Length Product (DLP) for this visit = 882.80 mGy*cm CT Dose Reduction Employed: No dose reduction techniques were required COMPARISON: MRI brain 10/15/2020 RESULT: [employer] (topogram) images: No additional findings. Post-operative change: None. Acute change: None. Hemorrhage: No evidence of acute intracranial hemorrhage. ECASS hemorrhagic transformation score: Not Applicable Mass Lesion / Mass Effect: No significant mass effect. Chronic change: None apparent. Parenchyma: Cerebral volume loss greatest in the frontal and temporal lobes. Ventricles: The ventricles are within normal limits of size and configuration for age. Paranasal sinuses and skull base: The visualized paranasal sinuses are grossly clear. The skull base and imaged soft tissues are unremarkable. IMPRESSION: No acute intracranial findings. Freight Breaker: PSCB Transcribe Date/Time: Jan 17 2022 2:50P Dictated by : ELOY RICH MD This examination was interpreted and the report reviewed and electronically signed by: ELOY RICH MD on Jan 17 2022 2:53PM EST [id number] N Normal [facility] ECG COMPLETEon 01-17-2022 ECG COMPLETE Ventricular Rate : 5 4 BPM Atrial Rate : 54 BPM P-R Interval : 144 ms QRS Duration : 92 ms Q-T Interval : 420 ms QTC Calculation(Bazett) : 398 ms Calculated P Rapidan : -3 degrees Calculated R Rapidan : 23 degrees Calculated T Rapidan : -23 degrees SINUS BRADYCARDIA INCOMPLETE RIGHT BUNDLE BRANCH BLOCK OTHERWISE NORMAL ECG NO PREVIOUS ECGS AVAILABLE Confirmed by MD ALYSSA, VI ([id number]) on 01/18/2022 11:15:05 PM NAME : HARJIT BRADSHAW PID : [id number] : 1940 Gender : Female Race : ORD : [id number] Procedure Date : Jan 17 2022 14:22:56 Edit Date : Jan 18 2022 23:15:05 Diagnosis: SINUS BRADYCARDIA INCOMPLETE RIGHT BUNDLE BRANCH BLOCK OTHERWISE NORMAL ECG NO PREVIOUS ECGS AVAILABLE Confirmed by MD SHAH VINAYAK ([id number]) on 01/18/2022 11:15:05 PM Test Reason : Hypertension Location : 150 : [facility] 12 Overread By : MD SHAH VINAYAK Edited By : MD SHAH VINAYAK Referred By : , Acquired by : GRANT WAY [facility] ED NOTEon 01-17-2022 ED NOTE HNO ID: [id number] Author: Seth Muro RN Service: Emergency Medicine Author Type: Registered Nurse Type: ED Notes Filed: 01/18/2022 11:47 AM Note Text: Patient Call Back Information How are you doing ? better Did we appropriately manage your pain? Yes Did you understand your discharge instructions? Yes Did you get your prescriptions filled? Yes Were you able to make a follow-up appointment with your physician? Yes Were you comfortable during your stay here? Yes Did a member of the ER nursing team round on you during your visit? Yes You will receive a patient satisfaction survey in the mail in the nest 2 weeks, please take the time to fill out the survey as your input from your ER visit is very important to us. Yes Can we do anything else to help you? No Normal [facility] ED PROV NOTEon 01-17-2022 ED PROV NOTE HNO ID: [id number] Author: Gloria Brown DO Service: Emergency Medicine Author Type: Physician Type: ED Provider Notes Filed: 01/17/2022 5:58 PM Note Text: ED Provider Note Patient Name: Harjit Bradshaw : 1940 SERVICE DATE: 01/17/22 History Patient presents with: Headache Harjit Bradshaw is a 81 year old female with history of multiple chronic medical problems who presents with Headache. - Symptoms began 1 month ago. - Severity: moderate - Timing: constant - Quality: dull, frontal location - Headache is exacerbated by nothing. - Headache is not exacerbated by anything. - Symptoms are associated with 1 episode of vomiting 2 days ago, hypertension. - Symptoms are not associated with abdominal pain, chest pain, chills, diarrhea, fever, nausea, rash, shortness of breath, URI symptoms, vision changes, numbness, weakness, difficulty speaking, slurred speech, head injury, neck stiffness. Patient reports that she has had a frontal headache over the past 1 month. She states she took her self off of Zoloft about a month ago, headache started shortly after. She states her blood pressure has also been elevated. She states she did see her doctor on and they did increase her blood pressure medication. She states that she was prescribed Naprosyn for the headache and her headache improves some with the naprosyn. She states that she has had no fall or head injury. No syncope. No vision changes, numbness, weakness, difficulty speaking or slurred speech. She denies chest pain or shortness of breath. She does note she vomited once which was 2 days ago, no further vomiting. She denies nausea. No diarrhea. No abdominal pain. PAST MEDICAL HISTORY Diagnosis Date Anxiety Bilateral malignant neoplasm of central portion of breast in female (HCC) Disorder of bone and cartilage, unspecified Microcalcifications of the breast 11/24/2015 left Osteoarthrosis, unspecified whether generalized or localized, other specified sites knees Other and unspecified hyperlipidemia Unspecified hypothyroidism PAST SURGICAL HISTORY Procedure Laterality Date ARTHROPLASTY TOTAL SHOULDER Right 11/28/2017 Dr. David Nieto; R reverse total shoulder replacment ARTHROPLASTY TOTAL SHOULDER Left 01/09/2019 Dr. David Nieto @ [facility]; L reverse total shoulder replacement; L distal clavicle resection ARTHRP KNE CONDYLEANDPLATU MEDIALANDLAT COMPARTMENTS 2008 Knee replacement, total, bilateral BX BREAST W/DEVICE 1ST LESION STEREOTACTIC GUID Left 11/24/2015 BX/EXC LYMPH NODE OPEN DEEP AXILLARY NODE Left 12/07/2015 CHOLECYSTECTOMY Cholecystectomy INJ RADIOACTIVE TRACER FOR ID OF SENTINEL NODE 12/07/2015 MASTECTOMY, SIMPLE, COMPLETE Left 12/07/2015 TONSILLECTOMY HX FAMILY HISTORY Problem Relation Age of Onset Cancer Mother ? no details, 85 Coronary Artery Disease Father [place], 94 Cancer Sister 57 liver Cancer Brother 50 Acute leukemia Cancer Brother Unknown type of cancer Cancer Brother ?Lung--Unknown type of cancer Cancer Sister 70 Breast cancer Cancer Sister lung Cancer Sister Rheumatologic disease Sister Cancer Brother lung COPD Brother Heart Brother Social History Tobacco Use Smoking status: Never Smokeless tobacco: Never Vaping Use Vaping Use: Never used Substance and Sexual Activity Alcohol use: Not Currently Comment: couple times a week Drug use: No Sexual activity: Yes Partners: Male ALLERGIES Allergen Reactions Morphine Mental Status Change, Intolerance, GI Upset Review of Systems Constitutional: Negative for chills and fever. HENT: Negative for facial swelling. Eyes: Negative for photophobia, pain, redness and visual disturbance. Respiratory: Negative for cough and shortness of breath. Cardiovascular: Negative for chest pain, palpitations and leg swelling. Gastrointestinal: Positive for vomiting (1 time, which occurred 2 days ago, no further vomiting). Negative for abdominal pain, diarrhea and nausea. Genitourinary: Negative for dysuria and flank pain. Musculoskeletal: Negative for neck pain and neck stiffness. Skin: Negative for rash. Neurological: Positive for headaches. Negative for dizziness, syncope, facial asymmetry, speech difficulty, weakness and numbness. Psychiatric/Behaviora l: Negative for agitation and confusion. Physical Exam Vitals [01/17/22 1341] BP Pulse Temp Temp src Resp SpO2 Weight Height (!) 208/125 58 36.6 ?C (97.8 ?F) Temporal 16 98 % 79.3 kg (174 lb 14.4 oz) 1.549 m (5' 1) Physical Exam Vitals and nursing note reviewed. Constitutional: General: She is not in acute distress. Appearance: She is not ill-appearing, toxic-appearing or diaphoretic. HENT: Head: Normocephalic and atraumatic. Mouth/Throat: Mouth: Mucous membranes are moist. Pharynx: Oropharynx is clear. Eyes: General: No scleral icterus. Extraocular Movements: Extraocular m (more content not included)... Normal [facility] TSH SerPl-aCncon 01-17-2022 TSH Qn 0.124 m[IU]/L Low 0.270-4.200 [facility] Comment on above: Order Comment: Speci men Type: BLOOD SPECIMENOrdering Facility: [facility] Address: [address] [place] [address] Performed By: #### 3 016-3, 92886-2 ####[facility] [id number] [place] [address] [place] Urinalysis complete panel (U )on 01-17-2022 Bacteria LM.HPF (Urine sed) [#/Area] Many Abnormal None Seen [facility] Comment on above: Order Comment: Speci men Type: URINE SPECIMEN Ordering Facility: [facility] Address: [address] [place] [address] Performed By: #### 2 4356-8 #### [facility] CLIA [id number] [address] Bilirubin Ql (U) Negative Normal Negative [facility] Comment on above: Order Comment: Speci men Type: URINE SPECIMEN Ordering Facility: [facility] Address: [address] [place] [address] Performed By: #### 2 4356-8 #### [facility] CLIA [id number] [address] Clarity (Unsp spec) Slightly Cloudy Abnormal Clear [facility] Comment on above: Order Comment: Speci men Type: URINE SPECIMEN Ordering Facility: [facility] Address: [address] [place] [address] Performed By: #### 2 4356-8 #### [facility] CLIA [id number] [address] Color (U) Yellow Normal Yellow [facility] Comment on above: Order Comment: Speci men Type: URINE SPECIMEN Ordering Facility: [facility] Address: [address] [place] [address] Performed By: #### 2 4356-8 #### [facility] CLIA [id number] [address] [id number] [facility] Glucose Test strip (U) [Mass/Vol] Negative Normal Negative [facility] Comment on above: Order Comment: Speci men Type: URINE SPECIMEN Ordering Facility: [facility] Address: [address] [place] [address] Performed By: #### 2 4356-8 #### [facility] CLIA [id number] [address] [place] [address] [facility] [place] Hemoglobin Ql (U) Negative Normal Negative [facility] Comment on above: Order Comment: Speci men Type: URINE SPECIMEN Ordering Facility: [facility] Address: [address] [place] [address] Performed By: #### 2 4356-8 #### [facility] CLIA [id number] [address] [place], [place] [address] [place] [address] [place] Ketones Ql (U) Negative Normal Negative [facility] Comment on above: Order Comment: Speci men Type: URINE SPECIMEN Ordering Facility: [facility] Address: [address] [place] [address] Performed By: #### 2 4356-8 #### [facility] CLIA [id number] [address] [place] Leukocyte esterase Test strip Ql (U) Negative Normal Negative [facility] Comment on above: Order Comment: Speci men Type: URINE SPECIMEN Ordering Facility: [facility] Address: [address] [place] [address] Performed By: #### 2 4356-8 #### [facility] CLIA [id number] [address] [place] Nitrite Ql (U) Negative Normal Negative [facility] Comment on above: Order Comment: Speci men Type: URINE SPECIMEN Ordering Facility: [facility] Address: [address] [place] [address] Performed By: #### 2 4356-8 #### [facility] CLIA [id number] [address] [place] [address] [facility] [place] pH (U) 7.0 [pH] Normal 5.0-8.0 [facility] Comment on above: Order Comment: Speci men Type: URINE SPECIMEN Ordering Facility: [facility] Address: [address] [place] [address] Performed By: #### 2 4356-8 #### [facility] CLIA [id number] [address] Protein (U) [Mass/Vol] Negative Normal Negative [facility] Comment on above: Order Comment: Speci men Type: URINE SPECIMEN Ordering Facility: [facility] Address: [address] [place] [address] Performed By: #### 2 4356-8 #### [facility] CLIA [id number] [address] RBC LM.HPF (Urine sed) [#/Area] 0-3 /HPF Normal 0-3 /HPF [facility] Comment on above: Order Comment: Speci men Type: URINE SPECIMEN Ordering Facility: [facility] Address: [address] [place] [address] Performed By: #### 2 4356-8 #### [facility] CLIA [id number] [address] Specific gravity (U) [Rel density] 1.015 Normal 1.005-1.030 [facility] Comment on above: Order Comment: Speci men Type: URINE SPECIMEN Ordering Facility: [facility] Address: [address] [place] [address] Performed By: #### 2 4356-8 #### [facility] CLIA [id number] [address] Urobilinogen Ql (U) 0.2 EU/dL Normal 0.2-1.0 EU/dL [facility] Comment on above: Order Comment: Speci men Type: URINE SPECIMEN Ordering Facility: [facility] Address: [address] [place] [address] Performed By: #### 2 4356-8 #### [facility] CLIA [id number] [address] WBC LM.HPF (Urine sed) [#/Area] 0-5 /HPF Normal 0-5 /HPF [facility] Comment on above: Order Comment: Speci men Type: URINE SPECIMEN Ordering Facility: [facility] Address: [address] [place] [address] Performed By: #### 2 4356-8 #### [facility] CLIA [id number] [address] [place] [address] [place] [facility] XR CHEST 1V FRONTALon 2021 XR CHEST 1V FRONTAL * * *Final Report* * * DATE OF EXAM: Jan 17 2022 2:44PM LD[facility] 5290 - XR CHEST 1V FRONTAL / PROCEDURE REASON: Hypertension, primary (essential) * * * * Physician Interpretation * * * * EXAMINATION: CHEST RADIOGRAPH (SINGLE VIEW AP OR PA) CLINICAL HISTORY: Hypertension, primary (essential) MQ: XC1_5 Comparison: Chest radiograph 12/22/2018 RESULT: Lines, tubes, and devices: None. Lungs and pleura: No consolidation. No pneumothorax. No pleural effusion. Cardiomediastinal silhouette: Stable cardiomediastinal silhouette. Other: Bilateral shoulder arthroplasty. IMPRESSION: No acute radiographic abnormality. Freight Breaker: PSCB Transcribe Date/Time: Jan 17 2022 2:49P Dictated by : ELOY RICH MD This examination was interpreted and the report reviewed and electronically signed by: ELOY RICH MD on Jan 17 2022 2:50PM EST [id number] N Normal [facility] AMBROSE SCREENING W Joshua 12-31 [facility] Vital Signs Date Time Vital Sign Value Performing Clinician Facility 01-16-2025 10:34-0400 Body height 154.[address] Vini Sparks DO Work Phone: [facility] 01-16-2025 10:34-0400 Body mass index (BMI) [Ratio] 30.4 kg/m2 Dr. Vini Sparks DO Work Phone: [facility] 01-16-2025 10:34-0400 Body weight 73.[address] Vini Sparks DO Work Phone: [facility] 01-16-2025 10:34-0400 Diastolic blood pressure 91 mm[Hg] Dr. Vini Sparks DO Work Phone: [facility] 01-16-2025 10:34-0400 Heart rate 93 /min Dr. Vini Sparks DO Work Phone: 2(757)905-540805 [place] [address] 01-16-2025 10:34-0400 Respiratory rate 18 /min Dr. Vini Sparks DO Work Phone: 5(765)852-735005 [place] [address] 01-16-2025 10:34-0400 SaO2% (BldA) [Mass fraction] 96 % Dr. Vini Sparks DO Work Phone: 6(893)954-758905 [place] [address] 01-16-2025 10:34-0400 Systolic blood pressure 133 mm[Hg] Dr. Vini Sparks DO Work Phone: 2(764)842-698705 [place] [address] 12-12-2024 08:30-0400 Body height 154.[address] Vini Sparks DO Work Phone: 4(855)431-380105 [place] [address] 12-12-2024 08:30-0400 Body mass index (BMI) [Ratio] 30.9 kg/m2 Dr. Vini Sparks DO Work Phone: 1(333)296-940105 [place] [address] 12-12-2024 08:30-0400 Body weight 74.[address] Vini Sparsk DO Work Phone: 8(284)109-214205 [place] [address] 12-12-2024 08:30-0400 Diastolic blood pressure 90 mm[Hg] Dr. Vini Sparks DO Work Phone: 8(432)951-636105 [place] [address] 12-12-2024 08:30-0400 Heart rate 74 /min Dr. Vini Sparks DO Work Phone: 6(886)877-922205 [place] [address] 12-12-2024 08:30-0400 Respiratory rate 16 /min Dr. Vini Sparks DO Work Phone: 1(480)939-925805 [place] [address] 12-12-2024 08:30-0400 Systolic blood pressure 140 mm[Hg] Dr. Vini Sparks DO Work Phone: 7(408)486-691405 [place] [address] 10-15-2024 13:14-0400 Body height 154.[address] Vini Sparks DO Work Phone: 5(793)642-101005 [place] [address] 10-15-2024 13:14-0400 Body mass index (BMI) [Ratio] 30.6 kg/m2 Dr. Vini Sparks DO Work Phone: [facility] 10-15-2024 13:14-0400 Body weight 73.[address] Vini Sparks DO Work Phone: [facility] 10-15-2024 13:14-0400 Diastolic blood pressure 76 mm[Hg] Dr. Vini Sparks DO Work Phone: 7(288)686-229605 [place] [address] 10-15-2024 13:14-0400 Heart rate 86 /min Dr. Vini Sparks DO Work Phone: 2(837)451-155505 [place] [address] 10-15-2024 13:14-0400 Respiratory rate 18 /min Dr. Vini Sparks DO Work Phone: 0(637)694-068005 [place] [address] 10-15-2024 13:14-0400 SaO2% (BldA) [Mass fraction] 95 % Dr. Vini Sparks DO Work Phone: 8(586)266-574505 [place] [address] 10-15-2024 13:14-0400 Systolic blood pressure 114 mm[Hg] Dr. Vini Sparks DO Work Phone: 3(284)221-936805 [place] [address] 08-28-2024 11:47-0400 Body height 156 cm Vini Sparks DO Work Phone: [facility] 08-28-2024 11:47-0400 Body mass index (BMI) [Ratio] 30.75 kg/m2 Vini Sparks DO Work Phone: [facility] 08-28-2024 11:47-0400 Body temperature 97 [degF] Vini Sparks DO Work Phone: [facility] 08-28-2024 11:47-0400 Body weight 74.84 kg Vini Sparks DO Work Phone: [facility] 08-28-2024 11:47-0400 Diastolic blood pressure 80 mm[Hg] Vini Sparks DO Work Phone: [facility] 08-28-2024 11:47-0400 Heart rate 76 /min Vini Sparks DO Work Phone: [facility] 08-28-2024 11:47-0400 Respiratory rate 16 /min Vini Sparks DO Work Phone: [facility] 08-28-2024 11:47-0400 Systolic blood pressure 120 mm[Hg] Vini Sparks DO Work Phone: [facility] 07-11-2024 14:31-0400 Body mass index (BMI) [Ratio] 30.7 kg/m2 Siva Knapp MD Work Phone: [facility] 07-11-2024 14:31-0400 Body weight 74.7 kg Siva Knapp MD Work Phone: [facility] 07-11-2024 14:31-0400 Diastolic blood pressure 84 mm[Hg] Siva Knapp MD Work Phone: [facility] 07-11-2024 14:31-0400 Heart rate 60 /min Siva Knapp MD Work Phone: [facility] [facility] 07-11-2024 14:31-0400 Respiratory rate 18 /min Siva Knapp MD Work Phone: [facility] 07-11-2024 14:31-0400 Systolic blood pressure 130 mm[Hg] Siva Knapp MD Work Phone: [facility] 02-26-2024 10:32-0500 Body mass index (BMI) [Ratio] 31.5 kg/m2 Vini Sparks DO Work Phone: [facility] 02-26-2024 10:32-0500 Body temperature 97 [degF] Vini Sparks DO Work Phone: [facility] 02-26-2024 10:32-0500 Body weight 76.66 kg Vini Sparks DO Work Phone: [facility] 02-26-2024 10:32-0500 Diastolic blood pressure 80 mm[Hg] Vini Sparks DO Work Phone: [facility] 02-26-2024 10:32-0500 Heart rate 60 /min Vini Sparks DO Work Phone: [facility] 02-26-2024 10:32-0500 Respiratory rate 16 /min Vini Sparks DO Work Phone: [facility] 02-26-2024 10:32-0500 Systolic blood pressure 120 mm[Hg] Vini Sparks DO Work Phone: [facility] 12-04-2023 11:24-0400 Body mass index (BMI) [Ratio] 31.81 kg/m2 Hayfield Negro 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 Work Phone: [facility] 12-04-2023 11:24-0400 Body temperature 97.5 [degF] 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 Work Phone: [facility] 12-04-2023 11:24-0400 Body weight 77.4 kg 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 Work Phone: [facility] 12-04-2023 11:24-0400 Diastolic blood pressure 70 mm[Hg] Hayfield Negro 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 Work Phone: [facility] 12-04-2023 11:24-0400 Heart rate 55 /min Hayfield Negro 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 Work Phone: [facility] 12-04-2023 11:24-0400 Systolic blood pressure 143 mm[Hg] 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 Work Phone: [facility] 08-22-2023 10:37-0400 Body mass index (BMI) [Ratio] 32.25 kg/m2 Vini Sparks DO Work Phone: [facility] 08-22-2023 10:37-0400 Body temperature 97.2 [degF] Vini Sparks DO Work Phone: [facility] 08-22-2023 10:37-0400 Body weight 78.47 kg Vini Sparks DO Work Phone: [facility] 08-22-2023 10:37-0400 Diastolic blood pressure 80 mm[Hg] Vini Sparks DO Work Phone: [facility] 08-22-2023 10:37-0400 Heart rate 60 /min Vini Sparks DO Work Phone: [facility] 08-22-2023 10:37-0400 Respiratory rate 16 /min Vini Sparks DO Work Phone: [facility] 08-22-2023 10:37-0400 Systolic blood pressure 130 mm[Hg] Vini Sparks DO Work Phone: [facility] 06-29-2023 11:37-0400 Body temperature 97.9 [degF] Patience Praisler-Wood 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 Work Phone: [facility] 06-29-2023 11:37-0400 Body weight 78.2 kg Patience Praisler-Wood 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 Work Phone: [facility] 06-29-2023 11:37-0400 Diastolic blood pressure 72 mm[Hg] Patience Praisler-Wood 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 Work Phone: [facility] 06-29-2023 11:37-0400 Heart rate 63 /min Patience Praisler-Wood 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 Work Phone: [facility] 06-29-2023 11:37-0400 Respiratory rate 16 /min Patience Praisler-Wood 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 Work Phone: [facility] 06-29-2023 11:37-0400 SaO2% (BldA) [Mass fraction] 96 % Patience Praisler-Wood 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 Work Phone: [facility] 06-29-2023 11:37-0400 Systolic blood pressure 128 mm[Hg] Patience Praisler-Wood 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 Work Phone: [facility] 02-13-2023 13:00-0400 Body temperature 97.59 [degF] Susanna Older 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 Work Phone: [facility] 12-02-2022 11:16-0400 Body height 156 cm Hayfield Negro 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 Work Phone: [facility] 12-02-2022 11:16-0400 Body temperature 98.1 [degF] Hayfield Negro 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 Work Phone: [facility] 12-02-2022 11:16-0400 Body weight 78.93 kg 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 Work Phone: [facility] 12-02-2022 11:16-0400 Diastolic blood pressure 67 mm[Hg] Hayfield Negro 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 Work Phone: [facility] 12-02-2022 11:16-0400 Heart rate 59 /min Hayfield Negro 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 Work Phone: [facility] 12-02-2022 11:16-0400 SaO2% (BldA) [Mass fraction] 98 % 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 Work Phone: [facility] 12-02-2022 11:16-0400 Systolic blood pressure 128 mm[Hg] Hayfield Negro 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 Work Phone: [facility] 08-15-2022 10:41-0400 Body temperature 96.6 [degF] Vini Sparks DO Work Phone: [facility] 08-15-2022 10:41-0400 Body weight 78.47 kg Vini Sparks DO Work Phone: [facility] 08-15-2022 10:41-0400 Diastolic blood pressure 84 mm[Hg] Vini Sparks DO Work Phone: [facility] 08-15-2022 10:41-0400 Heart rate 56 /min Vini Sparks DO Work Phone: [facility] 08-15-2022 10:41-0400 Respiratory rate 20 /min Vini Sparks DO Work Phone: [facility] 08-15-2022 10:41-0400 Systolic blood pressure 132 mm[Hg] Vini Sparks DO Work Phone: [facility] 06-13-2022 11:06-0500 Body weight 79.47 kg Radha Rhiannon 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 Work Phone: [facility] 06-13-2022 11:06-0500 Diastolic blood pressure 78 mm[Hg] Radha Rhiannon 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 Work Phone: [facility] 06-13-2022 11:06-0500 Heart rate 51 /min Radha Rhiannon 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 Work Phone: [facility] 06-13-2022 11:06-0500 SaO2% (BldA) [Mass fraction] 96 % Radha Rhiannon 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 Work Phone: [facility] 06-13-2022 11:06-0500 Systolic blood pressure 124 mm[Hg] Radha Rhiannon 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 Work Phone: [facility] 01-21-2022 11:10-0400 Body weight 76.3 kg Ayesha Zurawick 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 Work Phone: [facility] 01-21-2022 11:10-0400 Diastolic blood pressure 80 mm[Hg] Ayesha Zurawick 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 Work Phone: [facility] 01-21-2022 11:10-0400 Heart rate 53 /min Ayesha Zurawick 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 Work Phone: [facility] 01-21-2022 11:10-0400 Respiratory rate 14 /min Ayesha Zurawick 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 Work Phone: [facility] 01-21-2022 11:10-0400 SaO2% (BldA) [Mass fraction] 100 % Ayesha Zurawick 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 Work Phone: [facility] 01-21-2022 11:10-0400 Systolic blood pressure 170 mm[Hg] Ayesha Zurawick 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 Work Phone: [facility] 01-03-2022 14:16-0400 Body weight 76.66 kg Yamilexhof 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 Work Phone: [facility] 01-03-2022 14:16-0400 Diastolic blood pressure 88 mm[Hg] Tannhof 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 Work Phone: [facility] 01-03-2022 14:16-0400 Heart rate 61 /min raquel Kaminskihof 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 Work Phone: [facility] 01-03-2022 14:16-0400 Respiratory rate 16 /min Ashley Kaminskihof 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 Work Phone: [facility] 01-03-2022 14:16-0400 SaO2% (BldA) [Mass fraction] 98 % Ashley Kaminskihof 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 Work Phone: [facility] 01-03-2022 14:16-0400 Systolic blood pressure 138 mm[Hg] raquel Kaminskihof 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 Work Phone: [facility] 12-14-2021 12:26-0400 Body temperature 97.5 [degF] Vini Sparks DO Work Phone: [facility] 12-14-2021 12:26-0400 Body weight 77.11 kg Vini Sparks DO Work Phone: [facility] 12-14-2021 12:26-0400 Diastolic blood pressure 70 mm[Hg] Vini Sparks DO Work Phone: [facility] 12-14-2021 12:26-0400 Heart rate 64 /min Vini Sparks DO Work Phone: [facility] 12-14-2021 12:26-0400 Respiratory rate 16 /min Vini Sparks DO Work Phone: [facility] 12-14-2021 12:26-0400 Systolic blood pressure 120 mm[Hg] Vini Sparks DO Work Phone: [facility] 12-02-2021 11:27-0400 Body height 157.5 cm 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 Work Phone: [facility] 12-02-2021 11:27-0400 Body temperature 97.59 [degF] 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 Work Phone: [facility] 12-02-2021 11:27-0400 Body weight 77.56 kg Hayfield Negro 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 Work Phone: [facility] 12-02-2021 11:27-0400 Diastolic blood pressure 76 mm[Hg] Hayfield Negro 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 Work Phone: [facility] 12-02-2021 11:27-0400 Heart rate 58 /min 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 Work Phone: [facility] 12-02-2021 11:27-0400 Systolic blood pressure 149 mm[Hg] Hayfield Negro 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 Work Phone: [facility] 10-21-2021 13:07-0400 Body weight 77.29 kg Ayesha Zurawick 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 Work Phone: [facility] 10-21-2021 13:07-0400 Diastolic blood pressure 64 mm[Hg] Ayesha Zurawick 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 Work Phone: [facility] 10-21-2021 13:07-0400 Heart rate 68 /min Ayesha Zurawick 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 Work Phone: [facility] 10-21-2021 13:07-0400 Respiratory rate 18 /min Ayesha Zurawick 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 Work Phone: [facility] 10-21-2021 13:07-0400 Systolic blood pressure 124 mm[Hg] Ayesha Zurawick 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 Work Phone: [facility] 09-24-2021 12:51-0400 Body weight 77.11 kg Radha Rhiannon 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 Work Phone: [facility] 09-24-2021 12:51-0400 Diastolic blood pressure 86 mm[Hg] Radha Rhiannon 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 Work Phone: [facility] 09-24-2021 12:51-0400 Heart rate 54 /min Radha Jurado 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 Work Phone: [facility] 09-24-2021 12:51-0400 Respiratory rate 16 /min Radha Jurado 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 Work Phone: [facility] 09-24-2021 12:51-0400 SaO2% (BldA) [Mass fraction] 97 % Radha Jurado 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 Work Phone: [facility] 09-24-2021 12:51-0400 Systolic blood pressure 142 mm[Hg] Radhazenobia Jurado 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 Work Phone: [facility] Encounters Encounter Date Encounter Type Care Provider Facility Start: 01-28-2025 ambulatory Sarath [facility] Facility:[facility] Start: 01-28-2025 End: 01-28-2025 ambulatory Srinath Bustos Facility:[facility] Start: 01-20-2025 End: 01-20-[address] Srinath Bustos MD -[facility] Work Phone: Start: 01-20-2025 End: 01-20-[address] Vini Sparks DO Work Phone: -[facility] Start: 01-20-2025 End: 01-20-2025 ambulatory [facility] Facility:[facility] Start: 01-16-2025 End: 01-16-[address] Srinath Bustos MD -[facility] Work Phone: Start: 01-16-2025 End: 01-16-[address] Vini Sparks DO Work Phone: -[facility] Start: 01-13-2025 ambulatory Vini Marin y:[facility] Start: 01-13-2025 Non-patient / Non-visit Dr. Felisha SIMMS -[facility] Start: 01-13-2025 End: 01-13-[address] Vini Sparks DO Work Phone: -[facility] Start: 01-13-2025 End: 01-13-2025 Patient encounter procedure Sarah Garcia PA -[facility] Work Phone: Start: 01-13-2025 End: 01-13-2025 ambulatory Sarah PEARCE Facility:[facility] Start: 01-10-2025 ambulatory ELISSA NEGRO Facilit y:[facility] Start: 12-17-2024 End: 12-17-2024 ambulatory Liane Mosher [facility] Start: 12-17-2024 End: 12-17-2024 Patient encounter procedure Liane Mosher MA [facility] Comment on above: Population Health Na vigation Outreach ([place] ) Start: 12-12-2024 End: 12-12-2024 Patient encounter procedure Sarah PEARCE -[place] Work Phone: Start: 12-12-2024 End: 12-12-[address] Vini Sparks DO Work Phone: -[facility] Start: 11-05-2024 End: 11-05-2024 Refill Vini Sparks DO Work Phone: [facility] Comment on above: Refill Request Start: 10-15-2024 End: 10-15-[address] Srinath Bustos MD -[facility] Work Phone: Start: 10-15-2024 End: 10-15-[address] Vini Sparks DO Work Phone: -[facility] Start: 10-10-2024 End: 10-10-2024 ambulatory VINI SPARKS Facility:[facility] Start: 09-26-2024 End: 10-17-2024 Telephone encounter iVni Sparks DO Work Phone: [facility] Comment on above: Medication Request Start: 09-18-2024 End: 09-18-2024 Refill Vini Sparks DO Work Phone: [facility] Comment on above: Refill Request Start: 09-17-2024 End: 09-17-2024 Telephone encounter Vini Fuenteson DO Work Phone: [facility] Start: 09-16-2024 End: 09-16-2024 Follow-up encounter Ayesha Tran APRN.MAINTENANCE AND CUSTODIAN SUPERVISOR Work Phone: [facility] Start: 09-16-2024 End: 09-16-2024 ambulatory VINI SPARKS Facility:[facility] Start: 09-14-2024 End: 09-14-2024 ambulatory AYESHA TRAN Facility:[facility] Start: 09-12-2024 End: 09-13-2024 Follow-up encounter Ayesha Tran 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 Work Phone: [facility] Comment on above: Results Start: 09-04-2024 End: 09-13-2024 Telephone encounter Vini Fuenteson DO Work Phone: [facility] Comment on above: Medication Problem; cost of Eliquis Start: 08-29-2024 End: 08-29-2024 ambulatory VINI MICHELRISON Facility:[facility] Start: 08-28-2024 End: 08-28-2024 Telephone encounter Vini Fuenteson DO Work Phone: [facility] Start: 08-28-2024 End: 08-28-2024 ambulatory VINI FUENTESON Facility:[facility] Start: 08-28-2024 End: 08-28-2024 Patient encounter procedure Vini Michelrison DO Work Phone: [facility] Comment on above: Medicare annual well ness visit, subsequent (Primary Dx); HYPERTENSION BENIGN; Carotid atherosclerosis, bilateral; Palpitations; PALMA (generalized anxiety disorder); Dysthymia; Other chest pain; Melena; Chronic pain of both knees; History of total knee arthroplasty, bilateral; Chronic atrial fibrillation (HCC); Atrial fibrillation, unspecified type (HCC) Start: 07-11-2024 End: 07-11-2024 ambulatory VINI SPARKS Facility:[facility] Start: 07-11-2024 End: 07-11-2024 Office outpatient visit 25 minutes Siva Knapp MD Work Phone: [facility] [place] Comment on above: PALMA (generalized anx iety disorder) (Primary Dx); Dysthymia Start: 07-10-2024 End: 07-10-2024 ambulatory Chikis Leone RN [facility] Comment on above: Anxiety Start: 07-10-2024 End: 07-10-2024 Patient encounter procedure Dorita Hopkins MA [facility] [place] Comment on above: Population Health Na vigation Outreach ([facility] - [facility] ) Start: 03-04-2024 End: 03-04-2024 ambulatory Owen Lopez RN Work Phone: Special Education Director Management Start: 02-29-2024 End: 03-05-2024 Telephone encounter Vini Sparks DO Work Phone: [facility] [place] Comment on above: clarify directions o n Sertraline 100 mg rx Start: 02-28-2024 End: 02-28-2024 Telephone encounter Vini Sparks DO Work Phone: [facility] [place] Comment on above: Medication Problem Start: 02-26-2024 End: 02-26-2024 Refill Vini Fuenteson DO Work Phone: [facility] [place] Comment on above: Med Change Request Start: 02-26-2024 End: 02-26-2024 Patient encounter procedure Vini Fuenteson DO Work Phone: [facility] [place] Comment on above: Hypothyroidism, acqu ired (Primary Dx); HYPERTENSION BENIGN; Need for influenza vaccination; Dyslipidemia; Dysthymia; Need for COVID-19 vaccine; Depression, recurrent (HCC); Vitamin B12 deficiency; Vitamin D deficiency; Hyperglycemia; Fatigue, unspecified type Start: 02-26-2024 End: 02-26-2024 ambulatory VINI SPARKS Facility:[facility] Start: 02-19-2024 End: 02-19-2024 ambulatory VINI SPARKS Facility:[facility] Start: 02-09-2024 End: 02-12-2024 Refill Vini Fuenteson DO Work Phone: [facility] Comment on above: Refill Request Lab Orders Start: 01-27-2024 End: 01-27-2024 ambulatory Owen Lopez RN Work Phone: Special Education Director Management Comment on above: community monitoring outreach (CDM telephonic) Start: 01-11-2024 End: 01-12-2024 Telephone encounter 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 APRN.CNP Work Phone: Hematology/Oncology Start: 01-10-2024 End: 01-11-2024 Documentation procedure Mammography Coordinator [facility] Start: 01-10-2024 End: 01-11-2024 Letter encounter Mammography Coordinator [facility] Start: 01-08-2024 End: 01-08-2024 Subsequent hospital visit by physician [facility] Comment on above: Personal history of breast cancer [Z85.3] Start: 12-29-2023 End: 12-29-2023 ambulatory Owen Lopez RN Work Phone: Special Education Director Management Comment on above: community monitoring outreach (CDM telephonic) Start: 12-20-2023 End: 12-20-2023 ambulatory Owen Lopez RN Work Phone: Special Education Director Management Comment on above: community monitoring outreach (CDM telephonic) Start: 12-04-2023 End: 12-04-2023 Telephone encounter Vini Eulalio Sparks Work Phone: [facility] Comment on above: Patient Update Start: 12-04-2023 End: 12-04-2023 ambulatory 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 APRN.CNP Work Phone: Hematology/Oncology Comment on above: Personal history of breast cancer (Primary Dx); Encounter for screening mammogram for high-risk patient Start: 12-04-2023 End: 12-04-2023 Patient encounter procedure 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 APRN.CNP Work Phone: Hematology/Oncology Start: 11-23-2023 ambulatory Owen Echavarria Work Phone: Special Education Director Management Comment on above: community monitoring outreach (CDM telephonic) Start: 11-17-2023 Refill Vini vicente DO Work Phone: [facility] [place] Comment on above: Refill Request Start: 10-26-2023 ambulatory Owen Garcia Piar R N Work Phone: Special Education Director Management Comment on above: community monitoring outreach (CDM telephonic) Start: 10-20-2023 Refill Vini vicente DO Work Phone: [facility] Comment on above: Refill Request Start: 10-11-2023 ambulatory Owen Garcia Piar R N Work Phone: Special Education Director Management Comment on above: community monitoring outreach (CDM telephonic) Start: 09-13-2023 ambulatory Owen Garcia Piar R N Work Phone: Special Education Director Management Comment on above: community monitoring outreach (CDM telephonic) Refill Request Start: 08-23-2023 Telephone encounter Ayesha vicente 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 Work Phone: [facility] Comment on above: Results Start: 08-22-2023 End: 08-22-2023 Patient encounter procedure Vini Sparks DO Work Phone: [facility] Comment on above: Dyslipidemia (Primar y Dx); Dysthymia; Essential hypertension, benign; Hypothyroidism, acquired; Vitamin D deficiency; Vitamin B12 deficiency; Hyperglycemia; Depression, recurrent (HCC); Personal history of alcoholism (HCC); 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 in female, estrogen receptor positive (HCC) Start: 08-16-2023 ambulatory Owen Gracia Chrissar R N Work Phone: Special Education Director Management Comment on above: community monitoring outreach (CDM telephonc) Start: 08-02-2023 ambulatory Owen G Chrissar R N Work Phone: Special Education Director Management Comment on above: community monitoring outreach (CDM telephonic) Refill Request Start: 07-05-2023 ambulatory Owen Garcia Piar R N Work Phone: Special Education Director Management Comment on above: community monitoring outreach (CDM telephonic) Start: 06-30-2023 Telephone encounter Gray duran 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 Work Phone: [facility] Comment on above: Results Start: 06-29-2023 End: 06-29-2023 Patient encounter procedure Patience Winter 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 Work Phone: [facility] Comment on above: Viral URI with cough (Primary Dx); Exposure to COVID-19 virus Start: 05-23-2023 ambulatory Owen Lopez R N Work Phone: Special Education Director Management Comment on above: community monitoring outreach ([facility] telephonic) Start: 03-21-2023 ambulatory Owen Lopez R N Work Phone: Special Education Director Management Comment on above: community monitoring outreach ([facility] telephonic) Start: 03-20-2023 Refill Radha Stnickishayla tess 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 Work Phone: [facility] [place] Comment on above: Refill Request Start: 02-14-2023 Telephone encounter Elissa Ja milian 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 Work Phone: Hematology/Oncology Comment on above: Refill Request Start: 02-13-2023 End: 02-13-2023 Patient encounter procedure Susanna Laguna 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 Work Phone: [facility] [place] Comment on above: Encounter for immuni zation (Primary Dx) Start: 02-07-2023 Refill Ava muñoz PA-C Work Phone: [facility] [place] Comment on above: Refill Request Start: 02-01-2023 Refill Vini Calderon son DO Work Phone: [facility] [place] Comment on above: Refill Request Start: 01-31-2023 ambulatory Owen Lopez R N Work Phone: Special Education Director Management Comment on above: community monitoring outreach ([facility] telephonic) Start: 01-10-2023 Telephone encounter Patience Andre 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 Work Phone: [facility] Comment on above: Results Start: 01-09-2023 End: 01-09-2023 Subsequent hospital visit by physician [facility] Work Phone: Radiology Comment on above: Acute cough [R05.1] Start: 01-06-2023 Refill Vini vicente DO Work Phone: [facility] Comment on above: Refill Request Results Start: 01-05-2023 End: 01-05-2023 Subsequent hospital visit by physician [facility] Comment on above: 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, estrogen receptor positive (HCC) [C50.112, Z17.0] Start: 01-03-2023 ambulatory Owen Lopez R N Work Phone: Special Education Director Management Comment on above: community monitoring outreach (CDM telephonic) Start: 12-06-2022 ambulatory Owen Lopez R N Work Phone: Special Education Director Management Comment on above: community monitoring outreach (CDM telephonic) Start: 12-05-2022 Refill Vini vicente DO Work Phone: [facility] Comment on above: Refill Request Start: 12-02-2022 End: 12-02-2022 ambulatory 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 APRN.MAINTENANCE AND CUSTODIAN SUPERVISOR Work Phone: Hematology/Oncology Comment on above: 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, estrogen receptor positive (HCC) (Primary Dx); Encounter for screening mammogram for high-risk patient; Depression, recurrent (HCC) Start: 12-02-2022 End: 12-02-2022 Patient encounter procedure 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 Work Phone: [place] [facility] Start: 11-11-2022 ambulatory Owen Lopez R N Work Phone: Special Education Director Management Comment on above: community monitoring outreach (CDM telephonic) Start: 10-14-2022 ambulatory Owen Lopez R N Work Phone: Special Education Director Management Comment on above: community monitoring outreach (CDM telephonic) Start: 10-04-2022 Refill Vini vicente DO Work Phone: [facility] Comment on above: Refill Request Start: 09-28-2022 Refill Vini vicente DO Work Phone: [facility] Comment on above: Refill Request Start: 09-15-2022 ambulatory Owen Lopez R N Work Phone: Special Education Director Management Comment on above: community monitoring outreach (CDM telephonic) Start: 08-18-2022 ambulatory Owen Banerjeear R N Work Phone: Special Education Director Management Comment on above: community monitoring outreach (CDM telephonic) Start: 08-16-2022 Telephone encounter Vini jimenes DO Work Phone: [facility] Comment on above: Results Start: 08-15-2022 End: 08-15-2022 Patient encounter procedure Vini Sparks DO Work Phone: [facility] Comment on above: Essential hypertensi on, benign (Primary Dx); Dyslipidemia; Hypothyroidism, acquired; Hyperkalemia; Vitamin B12 deficiency; Vitamin D deficiency; Hyperglycemia; Personal history of alcoholism (HCC); PALMA (generalized anxiety disorder); 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 in female, estrogen receptor positive (HCC); Depression, recurrent (HCC) Start: 08-09-2022 Refill Vini vicente DO Work Phone: [facility] Comment on above: Refill Request Start: 08-03-2022 ambulatory Owen Lopez R N Work Phone: Special Education Director Management Comment on above: community monitoring outreach (CDM telephonic) Start: 07-27-2022 ambulatory Erik Smith RN [facility] Comment on above: Patient Update Start: 07-18-2022 Refill Radha pulido APRN.CNP Work Phone: [facility] Comment on above: Refill Request Start: 07-06-2022 ambulatory Owen Lopez R N Work Phone: Special Education Director Management Comment on above: community monitoring outreach (CDM telephonic) Start: 06-13-2022 End: 06-13-2022 Patient encounter procedure Radha Rhiannon 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 Work Phone: [facility] [place] Comment on above: Dysthymia Start: 05-19-2022 Telephone encounter Vini jimenes DO Work Phone: [facility] [place] Comment on above: Insurance Authorizat ion Start: 05-16-2022 Transcribe Orders Ciara Marcelo MA Patient Services Comment on above: Malignant neoplasm o f central portion of left breast (HCC) (Primary Dx) Start: 05-12-2022 ambulatory Liliana Love RN Work Phone: [facility] Comment on above: Mood Swings Start: 05-03-2022 Telephone encounter Elissa milian 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 Work Phone: Hematology/Oncology Comment on above: Orders Start: 04-27-2022 ambulatory Peace Hylton RN Work Phone: Special Education Director Management Comment on above: cdm (enrollment) Start: 04-25-2022 Refill Vini Calderon jules DO Work Phone: [facility] [place] Comment on above: Refill Request Start: 02-02-2022 Telephone encounter Vini jimenes DO Work Phone: [facility] [place] Comment on above: Results Start: 01-31-2022 Telephone encounter Ayesha honeycutt 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 Work Phone: [facility] [place] Comment on above: Results Start: 01-27-2022 Telephone encounter Ayesha honeycutt 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 Work Phone: [facility] [place] Comment on above: Results Start: 01-21-2022 End: 01-21-2022 Patient encounter procedure Ayesha Jefferson 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 Work Phone: [facility] [place] Comment on above: HYPERTENSION BENIGN (Primary Dx); Encounter for immunization; PALMA (generalized anxiety disorder); Headaches; Dyslipidemia; Hypothyroidism, acquired; Fatigue, unspecified type Start: 01-18-2022 End: 01-18-2022 Emergency department patient visit VINI Christianson:[facility] Start: 01-18-2022 Telephone encounter Vini jimenes DO Work Phone: [facility] [place] Comment on above: Headache; Hypertensi on Start: 01-17-2022 End: 01-17-2022 Emergency department patient visit VINI SPARKS Facility:[facility] Start: 01-03-2022 End: 01-03-2022 Patient encounter procedure Ashley Flores APRN.MAINTENANCE AND CUSTODIAN SUPERVISOR Work Phone: [facility] [place] Comment on above: HYPERTENSION BENIGN (Primary Dx); Ear foreign body, left, initial encounter Start: 01-03-2022 ambulatory Vini vicente DO Work Phone: [facility] [place] Comment on above: Hypertension Start: 12-31-2021 Documentation procedure Mammog arlin Coordinator [facility] Start: 12-31-2021 Letter encounter Mammography Coordinator 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, estrogen receptor positive (HCC) [C50.112, Z17.0] Start: 12-14-2021 End: 12-14-2021 Patient encounter procedure Vini Sparks DO Work Phone: [facility] [place] Comment on above: Anxious mood (Primar y Dx); Osteopenia, senile; Disorder of bone and articular cartilage; Disorder of bone density and structure, unspecified; Other specified disorders of bone density and structure, multiple sites ; Dysthymia; Vitamin D deficiency; HYPERTENSION BENIGN; Dyslipidemia; Hypothyroidism, acquired; Fatigue, unspecified type Start: 12-02-2021 End: 12-02-2021 ambulatory 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 Work Phone: Hematology/Oncology Comment on above: 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, estrogen receptor positive (HCC) (Primary Dx); Encounter for screening mammogram for high-risk patient Start: 12-02-2021 End: 12-02-2021 Patient encounter procedure 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 Work Phone: [facility] Start: 10-22-2021 Telephone encounter Ayesha Reeder yinka 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 Work Phone: [facility] Comment on above: Results Start: 10-21-2021 End: 10-21-2021 Patient encounter procedure Ayesha Jefferson 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 Work Phone: [facility] Comment on above: Anxious mood (Primar y Dx); Excessive sweating; Dysthymia; Vitamin D deficiency Start: 10-11-2021 Refill Vini vicente DO Work Phone: [facility] Comment on above: Refill Request Start: 09-29-2021 Telephone encounter Ayesha honeycutt 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 Work Phone: [facility] Comment on above: Results Start: 09-24-2021 End: 09-24-2021 Patient encounter procedure [facility] Start: 09-24-2021 Telephone encounter Radha Machado 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 Work Phone: [facility] Comment on above: Results Start: 09-24-2021 End: 09-24-2021 Patient encounter procedure Radha Jurado 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 Work Phone: [facility] Comment on above: Transient cerebral i schemia, unspecified type (Primary Dx); Generalized weakness; Aphasia; Blurred vision Procedures Date Procedure Procedure Detail Performing Clinician Start: 01-13-2025 Cardiovascular stres s test using pharmacologic stress agent Dr. Vini Sparks DO Work Phone: Start: 08-28-2024 Ecg routine ecg w/le ast 12 lds i&r only Vini Sparks DO Work Phone: Start: 02-26-2024 [employer] COVI D-19 VACCINE AGE 12+ YR (COMIRNATY) Vini Sparsk DO Work Phone: Start: 02-13-2023 [employer] COVI D-19 VACCINE ( SEASON) AGE 12+ YR Susanna Older 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 Work Phone: Start: 01-09-2023 Radiologic exam ches t 2 views Brendon Dong MD Work Phone: Start: 01-05-2023 Screening digital br east tomosynthesis bi 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 Work Phone: Start: 01-21-2022 INFLUENZA SEASONAL QUADRIVALENT HIGH DOSE AGE 65+ Ayesha Li 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 Work Phone: Start: 12-31-2021 AMBROSE SCREENING W [facility] Da rbtavon Negro 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 Work Phone: Start: 09-24-2021 CT of head without contrast Plan of Treatment Date Care Activity Detail Author Start: 08-30-2027 [facility] Start: 02-18-2027 Diabetes Screening Diabetes Screenin g [facility] Start: 08-21-2026 Diabetes Screening Diabetes Screenin g [facility] Start: 02-13-2026 [facility] Start: 08-28-2025 Medicare Annual Well ness Visit Medicare Annual Wellness Visit [facility] Start: 08-15-2025 DIABETES SCREEN DIABETES SCREEN [facility] Start: 08-15-2025 Diabetes Screening Diabetes Screenin g [facility] Start: 02-28-2025 End: 02-28-2025 Patient encounter procedure 02/28/2025 12:40 PM EST Office Visit Family [facility] [place] [address] [facility] [place] [id number] Vini Sparks DO [address] [facility] [place] [id number] Follow up 6 months Family [facility] [place] Comment on above: Follow up 6 months Start: 01-28-2025 DIABETES SCREEN DIABETES SCREEN [facility] Start: 01-21-2025 DIABETES SCREEN DIABETES SCREEN [facility] Start: 01-20-2025 End: 01-20-2025 ambulatory 01/20/2025 11:00 AM EDT Visit (SP) Office Hematology/Oncology [address] [place] [address] 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 APRN.MAINTENANCE AND CUSTODIAN SUPERVISOR [address] [place] [address] 1 YR OV/MAMM 01/10* Hematology/Oncology Comment on above: 1 YR OV/MAMM 01/10* Start: 01-20-2025 End: 01-20-2025 Evaluation of diagnostic study results [facility] Start: 01-17-2025 DIABETES SCREEN DIABETES SCREEN [facility] Start: 01-16-2025 Complete blood count [facility] Start: 01-16-2025 Evaluation of diagno stic study results [facility] Start: 01-16-2025 Thyroid stimulating hormone measurement [facility] Start: 01-16-2025 Thyroxine measurement [facility] Start: 01-10-2025 End: 02-09-2025 DBT Breast - bilateral screening AMBROSE SCREENING [facility] Radiology Routine 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 in female, estrogen receptor positive (HCC) Encounter for screening mammogram for high-risk patient Expected: 01/10/2025 (Approximate), Expires: 02/09/2025 [facility] Work Phone: Comment on above: Expected: 01/10/2025 (Approximate), Expires: 02/09/2025 Start: 01-10-2025 End: 01-10-2025 Patient encounter procedure 01/10/2025 11:10 AM EDT Appointment Mammogram [address] [place] [address] 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 in female, estrogen receptor positive (HCC) [C50.112, Z17.0]; Encounter for screening mammogram for high-risk patient [Z12.31] Mammogram Comment on above: 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 Start: 10-21-2024 DIABETES SCREEN DIABETES SCREEN [facility] Start: 10-15-2024 Evaluation of diagno stic study results [facility] Start: 10-15-2024 Evaluation of diagno stic study results [facility] Start: 10-10-2024 End: 10-10-2024 Patient encounter procedure 10/10/2024 12:30 PM EDT Office Visit Vasculary Surgery [address] [place] [address] Carotid atherosclerosis, 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] Vasculary Surgery Comment on above: Carotid atherosclero sis, 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] Start: 09-16-2024 End: 09-16-2024 Patient encounter procedure 09/16/2024 1:00 PM EDT Office Visit Cardiology [address] [place] [address] Palpitations [R00.2] Cardiology Comment on above: Palpitations [R00.2] Start: 09-12-2024 End: 12-12-2024 Potassium [Moles/volume] in Serum or Plasma POTASSIUM Lab Routine Hyperkalemia Expected: 09/12/2024, Expires: 12/12/2024 [facility] Work Phone: Comment on above: Expected: 09/12/2024 , Expires: 12/12/2024 Start: 08-28-2024 End: 08-28-2024 Patient encounter procedure 08/28/2024 12:00 PM EDT Office Visit [facility] [place] [address] [place] [place] [address] Vini Sparks DO [address] [place] [address] Medicare Wellness [facility] [place] Comment on above: Medicare Wellness Start: 08-25-2024 End: 11-24-2024 25-hydroxyvitamin D3 [Mass/volume] in Serum or Plasma VITAMIN D 25 HYDROXY Lab Routine Vitamin D deficiency Expected: 08/25/2024, Expires: 11/24/2024 [facility] Comment on above: Expected: 08/25/2024 , Expires: 11/24/2024 Start: 08-25-2024 End: 11-24-2024 CBC panel - Blood by Automated count COMPLETE BLOOD COUNT Lab Routine Hypothyroidism, acquired Expected: 08/25/2024, Expires: 11/24/2024 [facility] Comment on above: Expected: 08/25/2024 , Expires: 11/24/2024 Start: 08-25-2024 End: 11-24-2024 Cobalamin (Vitamin B12) [Mass/volume] in Serum or Plasma VITAMIN B12 Lab Routine Vitamin B12 deficiency Expected: 08/25/2024, Expires: 11/24/2024 [facility] Comment on above: Expected: 08/25/2024 , Expires: 11/24/2024 Start: 08-25-2024 End: 11-24-2024 Comprehensive metabolic 2000 panel - Serum or Plasma COMPREHENSIVE METABOLIC PANEL Lab Routine Hypothyroidism, acquired Expected: 08/25/2024, Expires: 11/24/2024 [facility] Comment on above: Expected: 08/25/2024 , Expires: 11/24/2024 Start: 08-25-2024 Covid-19 Vaccine () Covid-19 Vaccine () [facility] Start: 08-25-2024 End: 11-24-2024 Hemoglobin A1c in Blood HEMOGLOBIN A1C Lab Routine Hyperglycemia Expected: 08/25/2024, Expires: 11/24/2024 [facility] Comment on above: Expected: 08/25/2024 , Expires: 11/24/2024 Start: 08-25-2024 End: 11-24-2024 Lipid 1996 panel - Serum or Plasma LIPID PANEL BASIC Lab Routine Dyslipidemia Expected: 08/25/2024, Expires: 11/24/2024 [facility] Comment on above: Expected: 08/25/2024 , Expires: 11/24/2024 Start: 08-25-2024 End: 11-24-2024 Thyrotropin [Units/volume] in Serum or Plasma THYROID STIMULATING HORMONE Lab Routine Hypothyroidism, acquired Expected: 08/25/2024, Expires: 11/24/2024 [facility] Work Phone: Comment on above: Expected: 08/25/2024 , Expires: 11/24/2024 Start: 08-25-2024 End: 11-24-2024 Thyroxine (T4) free [Mass/volume] in Serum or Plasma T4 FREE/FREE THYROXINE Lab Routine Hypothyroidism, acquired Expected: 08/25/2024, Expires: 11/24/2024 [facility] Comment on above: Expected: 08/25/2024 , Expires: 11/24/2024 Start: 08-21-2024 Covid-19 Vaccine () Covid-19 Vaccine () [facility] Comment on above: Postponed from (Declined at this time) Start: 07-11-2024 End: 07-11-2024 Patient encounter procedure 07/11/2024 2:20 PM EDT Office Visit [facility] [place] [address] [place] [id number] Siva Knapp MD [address] [facility] [place], [place] [id number] Anxiety [facility] [place] Comment on above: Anxiety Start: 03-15-2024 DIABETES SCREEN DIABETES SCREEN [facility] Start: 02-26-2024 End: 02-26-2024 Patient encounter procedure 02/26/2024 10:40 AM EST Office Visit [facility] [place] [address] [place] [address] Vini Sparks DO [address] [place] [address] 6 month follow up [facility] [place] Comment on above: 6 month follow up Start: 02-10-2024 End: 05-11-2024 25-hydroxyvitamin D3 [Mass/volume] in Serum or Plasma VITAMIN D 25 HYDROXY Lab Routine Vitamin D deficiency Expected: 02/10/2024, Expires: 05/11/2024 [facility] Comment on above: Expected: 02/10/2024 , Expires: 05/11/2024 Start: 02-10-2024 End: 05-11-2024 CBC W Auto Differential panel - Blood COMPLETE BLOOD COUNT AND DIFFERENTIAL Lab Routine Dyslipidemia Expected: 02/10/2024, Expires: 05/11/2024 [facility] Comment on above: Expected: 02/10/2024 , Expires: 05/11/2024 Start: 02-10-2024 End: 05-11-2024 Cobalamin (Vitamin B12) [Mass/volume] in Serum or Plasma VITAMIN B12 Lab Routine Vitamin B12 deficiency Expected: 02/10/2024, Expires: 05/11/2024 [facility] Comment on above: Expected: 02/10/2024 , Expires: 05/11/2024 Start: 02-10-2024 End: 05-11-2024 Comprehensive metabolic 2000 panel - Serum or Plasma COMPREHENSIVE METABOLIC PANEL Lab Routine Dyslipidemia Expected: 02/10/2024, Expires: 05/11/2024 [facility] Work Phone: Comment on above: Expected: 02/10/2024 , Expires: 05/11/2024 Start: 02-10-2024 End: 05-11-2024 Lipid 1996 panel - Serum or Plasma LIPID PANEL BASIC Lab Routine Dyslipidemia Expected: 02/10/2024, Expires: 05/11/2024 [facility] Comment on above: Expected: 02/10/2024 , Expires: 05/11/2024 Start: 02-10-2024 End: 05-11-2024 Thyrotropin [Units/volume] in Serum or Plasma THYROID STIMULATING HORMONE Lab Routine Hypothyroidism, acquired Expected: 02/10/2024, Expires: 05/11/2024 [facility] Comment on above: Expected: 02/10/2024 , Expires: 05/11/2024 Start: 02-10-2024 End: 05-11-2024 Thyroxine (T4) free [Mass/volume] in Serum or Plasma T4 FREE/FREE THYROXINE Lab Routine Hypothyroidism, acquired Expected: 02/10/2024, Expires: 05/11/2024 [facility] Comment on above: Expected: 02/10/2024 , Expires: 05/11/2024 Start: 01-08-2024 End: 01-08-2024 Patient encounter procedure 01/08/2024 11:30 AM EDT Appointment Mammogram [address] [place] [address] Right- Personal history of breast cancer [Z85.3]; Encounter for screening mammogram for high-risk patient [Z12.31] Mammogram Comment on above: Right- Personal hist ory of breast cancer [Z85.3]; Encounter for screening mammogram for high-risk patient [Z12.31] Start: 12-17-2023 Covid-19 Vaccine ( season) Covid-19 Vacc[address] () [facility] Start: 12-17-2023 Covid-19 Vaccine () Covid-19 Vaccine () [facility] Start: 12-17-2023 Influenza vaccination Influenza Vacc ine (#1) [facility] Start: 12-04-2023 End: 12-04-2023 ambulatory 12/04/2023 11:30 AM EDT Visit (SP) Office Hematology/Oncology [address] [place] [id number] 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 APRN.MAINTENANCE AND CUSTODIAN SUPERVISOR [address] [place] [id number] 1 YR OV/MAMM 01/05/23* Hematology/Oncology Comment on above: 1 YR OV/MAMM 01/05/23 * Start: 08-22-2023 End: 11-21-2023 25-hydroxyvitamin D3 [Mass/volume] in Serum or Plasma [facility] Work Phone: Comment on above: Expected: 08/22/2023 , Expires: 11/21/2023 Start: 08-22-2023 End: 11-21-2023 [address] A1c in Blood [facility] Comment on above: Expected: 08/22/2023 , Expires: 11/21/2023 Start: 08-22-2023 End: 08-22-2023 Patient encounter procedure 08/22/2023 10:40 AM EDT Office Visit [facility] [place] [address] [place], [place] [id number] Vini Sparks DO [address] [place] [address] 6 month follow up [facility] [place] Comment on above: 6 month follow up Start: 06-15-2023 Covid-19 Vaccine () Covid-19 Vaccine () [facility] Start: 02-15-2023 End: 04-17-2023 25-hydroxyvitamin D3 [Mass/volume] in Serum or Plasma VITAMIN D 25 HYDROXY Lab Routine Vitamin D deficiency Expected: 02/15/2023, Expires: 04/17/2023 [facility] Work Phone: Comment on above: Expected: 02/15/2023 , Expires: 04/17/2023 Start: 02-15-2023 End: 04-17-2023 CBC panel - Blood by Automated count CBC Lab Routine Essential hypertension, benign Dyslipidemia Expected: 02/15/2023, Expires: 04/17/2023 [facility] Work Phone: Comment on above: Expected: 02/15/2023 , Expires: 04/17/2023 Start: 02-15-2023 End: 04-17-2023 Comprehensive metabolic 2000 panel - Serum or Plasma COMP METABOLIC PANEL Lab Routine Essential hypertension, benign Dyslipidemia Expected: 02/15/2023, Expires: 04/17/2023 [facility] Work Phone: Comment on above: Expected: 02/15/2023 , Expires: 04/17/2023 Start: 02-15-2023 End: 04-17-2023 Hemoglobin A1c in Blood HGB A1C Lab Routine Hyperglycemia Expected: 02/15/2023, Expires: 04/17/2023 [facility] Work Phone: Comment on above: Expected: 02/15/2023 , Expires: 04/17/2023 Start: 02-15-2023 End: 04-17-2023 Lipid 1996 panel - Serum or Plasma LIPID PANEL BASIC Lab Routine Essential hypertension, benign Expected: 02/15/2023, Expires: 04/17/2023 [facility] Work Phone: Comment on above: Expected: 02/15/2023 , Expires: 04/17/2023 Start: 02-15-2023 End: 04-17-2023 Thyrotropin [Units/volume] in Serum or Plasma TSH BLD Lab Routine Hypothyroidism, acquired Expected: 02/15/2023, Expires: 04/17/2023 [facility] Work Phone: Comment on above: Expected: 02/15/2023 , Expires: 04/17/2023 Start: 02-15-2023 End: 04-17-2023 Thyroxine (T4) free [Mass/volume] in Serum or Plasma T4 FREE/FREE THYROX Lab Routine Hypothyroidism, acquired Expected: 02/15/2023, Expires: 04/17/2023 [facility] Work Phone: Comment on above: Expected: 02/15/2023 , Expires: 04/17/2023 Start: 01-21-[address] [facility] Comment on above: Postponed from 08/17 (Declined at this time) Start: 12-31-2022 Shingrix Vaccine (2 of 2) Cohn grix Vaccine (2 of 2) [facility] Start: 12-16-2022 Covid-19 Vaccine (2022- season) Covid-19 Vaccine (2022- season) [facility] Start: 12-16-2022 Influenza vaccination [facility] Start: 08-15-2022 End: 10-15-2022 CBC W Auto Differential panel - Blood [facility] Work Phone: Comment on above: Expected: 08/15/2022 , Expires: 10/15/2022 Start: 08-15-2022 End: 10-15-2022 Cobalamin (Vitamin B12) [Mass/volume] in Serum or Plasma [facility] Work Phone: Comment on above: Expected: 08/15/2022 , Expires: 10/15/2022 Start: 08-15-2022 End: 10-15-2022 Comprehensive metabolic 2000 panel - Serum or Plasma [facility] Work Phone: Comment on above: Expected: 08/15/2022 , Expires: 10/15/2022 Start: 08-15-2022 End: 10-15-2022 Thyrotropin [Units/volume] in Serum or Plasma [facility] Work Phone: Comment on above: Expected: 08/15/2022 , Expires: 10/15/2022 Start: 08-15-2022 End: 10-15-2022 Thyroxine (T4) free [Mass/volume] in Serum or Plasma [facility] Work Phone: Comment on above: Expected: 08/15/2022 , Expires: 10/15/2022 Start: 06-14-2022 End: 08-14-2022 25-hydroxyvitamin D3 [Mass/volume] in Serum or Plasma VITAMIN D 25 HYDROXY Lab Routine Vitamin D deficiency Fatigue, unspecified type Expected: 06/14/2022, Expires: 08/14/2022 [facility] Work Phone: Comment on above: Expected: 06/14/2022 , Expires: 08/14/2022 Start: 06-14-2022 End: 08-14-2022 CBC panel - Blood by Automated count CBC Lab Routine Dyslipidemia Expected: 06/14/2022, Expires: 08/14/2022 [facility] Work Phone: Comment on above: Expected: 06/14/2022 , Expires: 08/14/2022 Start: 06-14-2022 End: 08-14-2022 Cobalamin (Vitamin B12) [Mass/volume] in Serum or Plasma VITAMIN B12 BLOOD Lab Routine Fatigue, unspecified type Expected: 06/14/2022, Expires: 08/14/2022 [facility] Work Phone: Comment on above: Expected: 06/14/2022 , Expires: 08/14/2022 Start: 06-14-2022 End: 08-14-2022 Comprehensive metabolic 2000 panel - Serum or Plasma COMP METABOLIC PANEL Lab Routine Dyslipidemia Expected: 06/14/2022, Expires: 08/14/2022 [facility] Work Phone: Comment on above: Expected: 06/14/2022 , Expires: 08/14/2022 Start: 06-14-2022 End: 08-14-2022 Lipid 1996 panel - Serum or Plasma LIPID PANEL BASIC Lab Routine Dyslipidemia Expected: 06/14/2022, Expires: 08/14/2022 [facility] Work Phone: Comment on above: Expected: 06/14/2022 , Expires: 08/14/2022 Start: 06-14-2022 End: 08-14-2022 Thyrotropin [Units/volume] in Serum or Plasma TSH BLD Lab Routine Hypothyroidism, acquired Expected: 06/14/2022, Expires: 08/14/2022 [facility] Work Phone: Comment on above: Expected: 06/14/2022 , Expires: 08/14/2022 Start: 06-14-2022 End: 08-14-2022 Thyroxine (T4) free [Mass/volume] in Serum or Plasma T4 FREE/FREE THYROX Lab Routine Hypothyroidism, acquired Expected: 06/14/2022, Expires: 08/14/2022 [facility] Work Phone: Comment on above: Expected: 06/14/2022 , Expires: 08/14/2022 Start: 06-14-2022 End: 08-14-2022 Triiodothyronine (T3) Free [Mass/volume] in Serum or Plasma T3 FREE BLD Lab Routine Hypothyroidism, acquired Expected: 06/14/2022, Expires: 08/14/2022 [facility] Work Phone: Comment on above: Expected: 06/14/2022 , Expires: 08/14/2022 Start: 04-17-2022 ADVANCE DIRECTIVE DISCUSSION ADVANCE DIRECTIVE DISCUSSION [facility] Start: 03-23-2022 FECAL OCCULT BLOOD FECAL OCCULT BLOO D [facility] Start: 01-27-2022 End: 03-29-2022 Comprehensive metabolic 2000 panel - Serum or Plasma COMP METABOLIC PANEL Lab Routine Serum potassium elevated Expected: 01/27/2022, Expires: 03/29/2022 [facility] Work Phone: Comment on above: Expected: 01/27/2022 , Expires: 03/29/2022 Start: 01-03-2022 COVID-19 VACCINE (6 - Booster for Moderna series) COVID-19 VACCINE (6 - Booster for Moderna series) [facility] Start: 01-03-2022 COVID-19 VACCINE (6 - Moderna series) COVID-19 VACCINE (6 - Moderna series) [facility] Start: 12-16-2021 Influenza vaccination INFLUENZA (#1) [facility] Start: 10-21-2021 End: 12-21-2021 25-hydroxyvitamin D3 [Mass/volume] in Serum or Plasma [facility] Work Phone: Comment on above: Expected: 10/21/2021 , Expires: 12/21/2021 Start: 10-21-2021 End: 12-21-2021 CBC panel - Blood by Automated count [facility] Work Phone: Comment on above: Expected: 10/21/2021 , Expires: 12/21/2021 Start: 10-21-2021 End: 12-21-2021 Cobalamin (Vitamin B12) [Mass/volume] in Serum or Plasma [facility] Work Phone: Comment on above: Expected: 10/21/2021 , Expires: 12/21/2021 Start: 10-21-2021 End: 12-21-2021 Comprehensive metabolic 2000 panel - Serum or Plasma [facility] Work Phone: Comment on above: Expected: 10/21/2021 , Expires: 12/21/2021 Start: 10-21-2021 End: 12-21-2021 Thyrotropin [Units/volume] in Serum or Plasma [facility] Work Phone: Comment on above: Expected: 10/21/2021 , Expires: 12/21/2021 Start: 10-21-2021 End: 12-21-2021 Thyroxine (T4) free [Mass/volume] in Serum or Plasma [facility] Work Phone: Comment on above: Expected: 10/21/2021 , Expires: 12/21/2021 Start: 10-21-2021 End: 12-21-2021 Triiodothyronine (T3) [Mass/volume] in Serum or Plasma [facility] Work Phone: Comment on above: Expected: 10/21/2021 , Expires: 12/21/2021 Start: 09-24-2021 End: 11-24-2021 CREATININE BLD CREATININE BLD Lab Routine Transient cerebral ischemia, unspecified type Generalized weakness Aphasia Blurred vision Expected: 09/24/2021, Expires: 11/24/2021 [facility] Work Phone: Comment on above: Expected: 09/24/2021 , Expires: 11/24/2021 Start: 06-23-2021 COVID-19 VACCINE (5 - Booster for Moderna series) COVID-19 VACCINE (5 - Booster for Moderna series) [facility] Start: 04-17-2021 ADVANCE DIRECTIVE DISCUSSION ADVANCE DIRECTIVE DISCUSSION [facility] Start: 08-18-2015 RSV Vaccine (1 - 1-d ose 75+ series) RSV Vaccine (1 - 1-dose 75+ series) [facility] Start: 2000 RSV Vaccine (1 - 1-d ose 60+ series) RSV Vaccine (1 - 1-dose 60+ series) [facility] Start: 1990 SHINGRIX VACCINE (1 of 2) COHN GRIX VACCINE (1 of 2) [facility] Start: 08-18-1959 SHINGRIX VACCINE (1 of 2) COHN GRIX VACCINE (1 of 2) [facility] Start: 08-18-[address] [facility] Basic metabolic 2008 panel with ionized calcium - Serum or Plasma [facility] Cardioversion [facility] End: 10-24-2022 Ct head/brain w/o contrast material CT BRAIN WO IVCON Radiology STAT Transient cerebral ischemia, unspecified type Generalized weakness Aphasia Blurred vision 1 Occurrences starting 09/24/2021 until 10/24/2022 [facility] Work Phone: Comment on above: 1 Occurrences starti ng 09/24/2021 until 10/24/2022 End: 01-02-2025 DBT Breast - bilateral screening AMBROSE SCREENING W ORACIO Radiology Routine Personal history of breast cancer Encounter for screening mammogram for high-risk patient 1 Occurrences starting 12/04/2023 until 01/02/2025 [facility] Work Phone: Comment on above: 1 Occurrences starti ng 12/04/2023 until 01/02/2025 DBT Breast - bilater al screening AMBROSE SCREENING W ORACIO Radiology Routine Personal history of breast cancer Encounter for screening mammogram for high-risk patient 01/08/2024 1:08 PM EDT [facility] Work Phone: End: 10-24-2022 Duplex scan extracranial art compl bi study US CAROTID BILAT Radiology Routine Transient cerebral ischemia, unspecified type Generalized weakness Aphasia Blurred vision 1 Occurrences starting 09/24/2021 until 10/24/2022 [facility] Work Phone: Comment on above: 1 Occurrences starti ng 09/24/2021 until 10/24/2022 End: 01-13-2023 Dxa bone density study 1/> sites axial skel DXA-AXIAL SKELETON Radiology Routine Osteopenia, senile Disorder of bone and articular cartilage Disorder of bone density and structure, unspecified Other specified disorders of bone density and structure, multiple sites 1 Occurrences starting 12/14/2021 until 01/13/2023 [facility] Work Phone: Comment on above: 1 Occurrences starti ng 12/14/2021 until 01/13/2023 End: 09-24-2022 ECG COMPLETE ECG COMPLETE ECG Routine Transient cerebral ischemia, unspecified type Generalized weakness Aphasia Blurred vision 1 Occurrences starting 09/24/2021 until 09/24/2022 [facility] Work Phone: Comment on above: 1 Occurrences starti ng 09/24/2021 until 09/24/2022 ECG COMPLETE ECG COMPLETE ECG Routine Other chest pain 08/28/2024 12:[address] [facility] End: 08-28-2025 Echocardiography ECHO Cardiology Routine Palpitations 1 Occurrences starting 08/28/2024 until 08/28/2025 [facility] Comment on above: 1 Occurrences starti ng 08/28/2024 until 08/28/2025 Evaluation of diagno stic study results [facility] Hemoglobin.gastroint estina l.lower [Presence] in Stool by Immunoassay IMMUNOCHEMICAL FECAL OCCULT BLOOD TEST Lab Routine Melena Ordered: 08/28/2024 [facility] Comment on above: Ordered: 08/28/2024 End: 01-01-2023 AMBROSE SCREENING W ORACIO AMBROSE SCREENING W ORACIO Radiology Routine 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 in female, estrogen receptor positive (HCC) Encounter for screening mammogram for high-risk patient 1 Occurrences starting 12/02/2021 until 01/01/2023 [facility] Work Phone: Comment on above: 1 Occurrences starti ng 12/02/2021 until 01/01/2023 End: 01-01-2024 AMBROSE SCREENING W ORACIO AMBROSE SCREENING W ORACIO Radiology Routine 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 in female, estrogen receptor positive (HCC) Encounter for screening mammogram for high-risk patient 1 Occurrences starting 12/02/2022 until 01/01/2024 [facility] Work Phone: Comment on above: 1 Occurrences starti ng 12/02/2022 until 01/01/2024 NM Heart Views W str ess and W radionuclide IV [facility] SARS-CoV-2 (COVID-19 ) RNA [Presence] in Respiratory specimen by BLADE with probe detection COVID NAAT, UPPER RESPIRATORY, ROUTINE Microbiology Routine Viral URI with cough Exposure to COVID-19 virus 06/29/2023 1:10 PM EDT [facility] Work Phone: End: 08-28-2025 US Carotid arteries - bilateral US CAROTID ARTERIES [facility] Lab Routine Carotid atherosclerosis, bilateral 1 Occurrences starting 08/28/2024 until 08/28/2025 [facility] Work Phone: Comment on above: 1 Occurrences starti ng 08/28/2024 until 08/28/2025 End: 09-27-2025 XR Knee - bilateral 4 Views XR KNEE GENERAL 4V AP BOTH/PA BOTH/LAT/MERC BILATERAL Radiology Routine Chronic pain of both knees History of total knee arthroplasty, bilateral 1 Occurrences starting 08/28/2024 until 09/27/2025 [facility] Comment on above: 1 Occurrences starti ng 08/28/2024 until 09/27/2025 [facility] Immunizations Immunization Date Immunization Notes Care Provider Jamari maravilla 02-26-2024 COVID-19 vaccine, ag e 12+ yr (PFIZER-BIONTECH COMIRNATY) Vini Michelrison DO Work Phone: [facility] 02-26-2024 influenza, high dose seasonal, preservative-free Vini Michelrison DO Work Phone: [facility] 02-26-2024 influenza virus vacc ine, unspecified formulation Vini Michelrison DO Work Phone: [facility] 02-21-2023 influenza (HD-IIV4) vaccine, age 65+ yr, high dose, quadrivalent, PF (FLUZONE HIGH-DOSE) Radha Jurado 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 Work Phone: [facility] 02-21-2023 pneumococcal (PCV20) vaccine, 20 valent (PREVNAR 20) Radha Jurado 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 Work Phone: [facility] 02-21-2023 influenza virus vacc ine, unspecified formulation Vini Michelrison DO Work Phone: [facility] 02-13-2023 COVID-19 vaccine, ag e 12+ yr, 2022- season (Systancia) Susanna Laguna 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 Work Phone: [facility] Work Phone: 01-21-2022 influenza, high-dose , quadrivalent vaccine (FLUZONE HIGH DOSE QUADRIVALENT) Ayesha Jefferson 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 Work Phone: [facility] 01-21-2022 influenza virus vacc ine, unspecified formulation Owen Lopez RN Work Phone: [facility] 08-11-2020 COVID-19 vaccine, fu ll dose (MODERNA) Radha Jurado 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 Work Phone: [facility] 07-14-2020 COVID-19 vaccine, fu ll dose (MODERNA) Radha Jurado 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 Work Phone: [facility] 07-13-2020 Covid (Moderna) [facility] 06-15-2020 Covid (Moderna) [facility] 01-08-2020 influenza, high dose seasonal, preservative-free Radha Rhiannon 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 Work Phone: [facility] 02-01-2019 influenza, high dose seasonal, preservative-free Radha Rhiannon 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 Work Phone: [facility] 01-02-2018 influenza, high dose seasonal, preservative-free Radha Rhiannon 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 Work Phone: [facility] Work Phone: 01-16-2017 Influenza virus vaccine [facility] 01-16-2017 influenza, seasonal, injectable, preservative free Radha Rhiannon 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 Work Phone: [facility] 12-31-2016 influenza, high dose seasonal, preservative-free Radha Rhiannon 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 Work Phone: [facility] 08-24-2016 pneumococcal polysaccharide vaccine, 23 valent Radha Rhiannon 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 Work Phone: [facility] Work Phone: 12-30-2015 influenza, high dose seasonal, preservative-free Radha Rhiannon 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 Work Phone: [facility] Work Phone: 07-31-2015 pneumococcal conjuga te vaccine, 13 valent Radha Rhiannon 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 Work Phone: [facility] 02-18-2015 influenza, high dose seasonal, preservative-free Radha Rhiannon 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 Work Phone: [facility] 01-20-2014 influenza, high dose seasonal, preservative-free Radha Rhiannon 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 Work Phone: [facility] 01-29-2013 influenza virus vacc ine, unspecified formulation Radha Rhiannon 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 Work Phone: [facility] 01-25-2012 influenza virus vacc ine, unspecified formulation Radha Rhiannon 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 Work Phone: [facility] Work Phone: 01-10-2009 influenza virus vacc ine, unspecified formulation Radha Rhiannon 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 Work Phone: [facility] 02-19-2008 influenza virus vacc ine, whole virus Radha Rhiannon 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 Work Phone: [facility] 02-19-2008 pneumococcal conjuga te vaccine, 7 valent Radha Rhiannon 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 Work Phone: [facility] 02-19-2007 influenza virus vacc ine, unspecified formulation Radha Rhiannon TROUT FARMER.[facility] Work Phone: [facility] Work Phone: 02-20-2006 influenza virus vacc ine, unspecified formulation Radha Rhiannon 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 Work Phone: [facility] 02-15-2005 influenza virus vacc ine, unspecified formulation Radha Rhiannon TROUT FARMER.[facility] Work Phone: [facility] Work Phone: Payers Date Payer Category Payer Unknown [id number] 2024 Self-pay [id number] 2021 Unknown [employer] [id number] 2021-Present [phone] [id number] [place] [address] Indemnity [id number] 2021 Unknown [employer] [id number] 2021-Present [phone] [address] [address] [place] [address] Indemnity [id number] 2010 Unknown [id number] 2005 Medicare MEDICARE MEDICAR E A AND B [id number] 2005-Present [phone] [address] [address] [place] [address] Medicare [id number] 2005 Medicare [id number] 2005 Medicare [id number] Unknown [id number] Unknown [id number] Unknown [id number] Unknown [id number] Unknown [id number] Unknown [id number] Unknown [id number] Unknown [id number] Unknown [id number] Unknown [id number] Social History Date Type Detail Facility Start: 03-03-2011 End: 10-15-2024 Tobacco smoking status VTIS Never smoked tobacco [facility] Start: 09-24-2021 End: 01-03-2022 Alcohol intake Current drinker of alcohol (finding) [facility] Start: 1940 Sex Assigned At Not on file [facility] Start: 09-14-2021 End: 01-18-2022 Exposure to SARS-CoV-2 (event) Not sure [facility] Start: 06-10-2019 Tobacco smoking stat us VTIS Unknown if ever smoked [facility] Work Phone: Start: 11-29-2017 Non-smoker [facility] Start: 1940 Sex [facility]igned At Female [facility] Start: 03-03-2011 End: 01-03-2022 Tobacco use and exposure Smokeless tobacco non-user [facility] Start: 01-18-2022 End: 08-28-2024 Alcohol intake Ex-drinker (finding) [facility] Start: 01-11-2022 End: 01-21-2022 Exposure to SARS-CoV-2 (event) Yes [facility] Start: 08-15-2022 End: 12-02-2022 History of Social function [facility] Work Phone: Start: 08-15-2022 End: 12-02-[address] [facility] Work Phone: (I/We) worried jodi er (my/our) food would run out before (I/we) got money to buy more. Never true [facility] Work Phone: Start: 03-18-2012 In the past 12 month s, has lack of transportation kept you from medical appointments or from getting medications? No [facility] Work Phone: How often to you hav e a drink containing alcohol? 2-[address] [facility] How many standard dr inks containing alcohol do you have on a typical day? [address] [facility] How often do you hav e 6 or more drinks on 1 occasion? Never [facility] Medical Equipment Procedure Code Equipment Code Equipment Origin al Text Equipment Identifier Dates 4.5MM EQUINOXE R EC CMP SCREW FDA Start: 11-28-2017 EQUINOXE REV HUM ERAL LINER FDA Start: 11-28-2017 EQUINOXE REV LOC K GLENO SCREW FDA Start: 11-28-2017 EQUINOXE REV TOR QUE DEF SCREW FDA Start: 11-28-2017 4.5MM EQUINOXE R EV CMP SCREW FDA Start: 11-28-2017 4.5MM EQUINOXE R EV CMP SCREW FDA Start: 11-28-2017 4.5MM EQUINOXE R EV CMP SCREW FDA Start: 11-28-2017 EQUINOXE GLENOID K-WIRE FDA Start: 11-28-2017 EQUINOXE PRESERV E HUM STEM FDA Start: 11-28-2017 EQUINOXE REV GLE NOID PLATE FDA Start: 11-28-2017 EQUINOXE REV GLENOSPHERE FDA Start: 11-28-2017 EQUINOXE REV HUM ERAL ADPT TRAY FDA Start: 11-28-2017 36MM HUMERAL LINER FDA Start: 01-09-2019 GLENOSPHERE LOCK ING SCREW FDA Start: 01-09-2019 HUMERAL ADAPTER TRAY FDA Star t: 01-09-2019 HUMERAL STEM PF PLASMA COATED FDA Start: 01-09-2019 COMPRESSION SCREW/LOCKING CAP FDA Start: 01-09-2019 COMPRESSION SCREW/LOCKING CAP FDA Start: 01-09-2019 COMPRESSION SCREW/LOCKING CAP FDA Start: 01-09-2019 COMPRESSION SCREW/LOCKING CAP FDA Start: 01-09-2019 COMPRESSION SCREW/LOCKING CAP FDA Start: 01-09-2019 EQUINOXE REV VITALIY ULDER PLATE FDA Start: 01-09-2019 FIXED ANGLE TORQ UE DEFINING SC FDA Start: 01-09-2019 GLENOSPHERE FDA Start: 01-09-2019 4.5MM EQUINOXE R EC CMP SCREW FDA Start: 11-28-2017 EQUINOXE REV HUM ERAL LINER FDA Start: 11-28-2017 EQUINOXE REV LOC K GLENO SCREW FDA Start: 11-28-2017 EQUINOXE REV TOR QUE DEF SCREW FDA Start: 11-28-2017 4.5MM EQUINOXE R EV CMP SCREW FDA Start: 11-28-2017 4.5MM EQUINOXE R EV CMP SCREW FDA Start: 11-28-2017 4.5MM EQUINOXE R EV CMP SCREW FDA Start: 11-28-2017 EQUINOXE GLENOID K-WIRE FDA Start: 11-28-2017 EQUINOXE PRESERV E HUM STEM FDA Start: 11-28-2017 EQUINOXE REV GLE NOID PLATE FDA Start: 11-28-2017 EQUINOXE REV GLENOSPHERE FDA Start: 11-28-2017 EQUINOXE REV HUM ERAL ADPT TRAY FDA Start: 11-28-2017 36MM HUMERAL LINER FDA Start: 01-09-2019 GLENOSPHERE LOCK ING SCREW FDA Start: 01-09-2019 HUMERAL ADAPTER TRAY FDA Star t: 01-09-2019 HUMERAL STEM PF PLASMA COATED FDA Start: 01-09-2019 COMPRESSION SCREW/LOCKING CAP FDA Start: 01-09-2019 COMPRESSION SCREW/LOCKING CAP FDA Start: 01-09-2019 COMPRESSION SCREW/LOCKING CAP FDA Start: 01-09-2019 COMPRESSION SCREW/LOCKING CAP FDA Start: 01-09-2019 COMPRESSION SCREW/LOCKING CAP FDA Start: 01-09-2019 EQUINOXE REV VITALIY ULDER PLATE FDA Start: 01-09-2019 FIXED ANGLE TORQ UE DEFINING SC FDA Start: 01-09-2019 GLENOSPHERE FDA Start: 01-09-2019 4.5MM EQUINOXE R EC CMP SCREW FDA Start: 11-28-2017 EQUINOXE REV HUM ERAL LINER FDA Start: 11-28-2017 EQUINOXE REV LOC K GLENO SCREW FDA Start: 11-28-2017 EQUINOXE REV TOR QUE DEF SCREW FDA Start: 11-28-2017 4.5MM EQUINOXE R EV CMP SCREW FDA Start: 11-28-2017 4.5MM EQUINOXE R EV CMP SCREW FDA Start: 11-28-2017 4.5MM EQUINOXE R EV CMP SCREW FDA Start: 11-28-2017 EQUINOXE GLENOID K-WIRE FDA Start: 11-28-2017 EQUINOXE PRESERV E HUM STEM FDA Start: 11-28-2017 EQUINOXE REV GLE NOID PLATE FDA Start: 11-28-2017 EQUINOXE REV GLENOSPHERE FDA Start: 11-28-2017 EQUINOXE REV HUM ERAL ADPT TRAY FDA Start: 11-28-2017 36MM HUMERAL LINER FDA Start: 01-09-2019 GLENOSPHERE LOCK ING SCREW FDA Start: 01-09-2019 HUMERAL ADAPTER TRAY FDA Star t: 01-09-2019 HUMERAL STEM PF PLASMA COATED FDA Start: 01-09-2019 COMPRESSION SCREW/LOCKING CAP FDA Start: 01-09-2019 COMPRESSION SCREW/LOCKING CAP FDA Start: 01-09-2019 COMPRESSION SCREW/LOCKING CAP FDA Start: 01-09-2019 COMPRESSION SCREW/LOCKING CAP FDA Start: 01-09-2019 COMPRESSION SCREW/LOCKING CAP FDA Start: 01-09-2019 EQUINOXE REV VITALIY ULDER PLATE FDA Start: 01-09-2019 FIXED ANGLE TORQ UE DEFINING SC FDA Start: 01-09-2019 GLENOSPHERE FDA Start: 01-09-2019 4.5MM EQUINOXE R EC CMP SCREW FDA Start: 11-28-2017 EQUINOXE REV HUM ERAL LINER FDA Start: 11-28-2017 EQUINOXE REV LOC K GLENO SCREW FDA Start: 11-28-2017 EQUINOXE REV TOR QUE DEF SCREW FDA Start: 11-28-2017 4.5MM EQUINOXE R EV CMP SCREW FDA Start: 11-28-2017 4.5MM EQUINOXE R EV CMP SCREW FDA Start: 11-28-2017 4.5MM EQUINOXE R EV CMP SCREW FDA Start: 11-28-2017 EQUINOXE GLENOID K-WIRE FDA Start: 11-28-2017 EQUINOXE PRESERV E HUM STEM FDA Start: 11-28-2017 EQUINOXE REV GLE NOID PLATE FDA Start: 11-28-2017 EQUINOXE REV GLENOSPHERE FDA Start: 11-28-2017 EQUINOXE REV HUM ERAL ADPT TRAY FDA Start: 11-28-2017 36MM HUMERAL LINER FDA Start: 01-09-2019 GLENOSPHERE LOCK ING SCREW FDA Start: 01-09-2019 HUMERAL ADAPTER TRAY FDA Star t: 01-09-2019 HUMERAL STEM PF PLASMA COATED FDA Start: 01-09-2019 COMPRESSION SCREW/LOCKING CAP FDA Start: 01-09-2019 COMPRESSION SCREW/LOCKING CAP FDA Start: 01-09-2019 COMPRESSION SCREW/LOCKING CAP FDA Start: 01-09-2019 COMPRESSION SCREW/LOCKING CAP FDA Start: 01-09-2019 COMPRESSION SCREW/LOCKING CAP FDA Start: 01-09-2019 EQUINOXE REV VITALIY ULDER PLATE FDA Start: 01-09-2019 FIXED ANGLE TORQ UE DEFINING SC FDA Start: 01-09-2019 GLENOSPHERE FDA Start: 01-09-2019 4.5MM EQUINOXE R EC CMP SCREW FDA Start: 11-28-2017 EQUINOXE REV HUM ERAL LINER FDA Start: 11-28-2017 EQUINOXE REV LOC K GLENO SCREW FDA Start: 11-28-2017 EQUINOXE REV TOR QUE DEF SCREW FDA Start: 11-28-2017 4.5MM EQUINOXE R EV CMP SCREW FDA Start: 11-28-2017 4.5MM EQUINOXE R EV CMP SCREW FDA Start: 11-28-2017 4.5MM EQUINOXE R EV CMP SCREW FDA Start: 11-28-2017 EQUINOXE GLENOID K-WIRE FDA Start: 11-28-2017 EQUINOXE PRESERV E HUM STEM FDA Start: 11-28-2017 EQUINOXE REV GLE NOID PLATE FDA Start: 11-28-2017 EQUINOXE REV GLENOSPHERE FDA Start: 11-28-2017 EQUINOXE REV HUM ERAL ADPT TRAY FDA Start: 11-28-2017 36MM HUMERAL LINER FDA Start: 01-09-2019 GLENOSPHERE LOCK ING SCREW FDA Start: 01-09-2019 HUMERAL ADAPTER TRAY FDA Star t: 01-09-2019 HUMERAL STEM PF PLASMA COATED FDA Start: 01-09-2019 COMPRESSION SCREW/LOCKING CAP FDA Start: 01-09-2019 COMPRESSION SCREW/LOCKING CAP FDA Start: 01-09-2019 COMPRESSION SCREW/LOCKING CAP FDA Start: 01-09-2019 COMPRESSION SCREW/LOCKING CAP FDA Start: 01-09-2019 COMPRESSION SCREW/LOCKING CAP FDA Start: 01-09-2019 EQUINOXE REV VITALIY ULDER PLATE FDA Start: 01-09-2019 FIXED ANGLE TORQ UE DEFINING SC FDA Start: 01-09-2019 GLENOSPHERE FDA Start: 01-09-2019 4.5MM EQUINOXE R EC CMP SCREW FDA Start: 11-28-2017 EQUINOXE REV HUM ERAL LINER FDA Start: 11-28-2017 EQUINOXE REV LOC K GLENO SCREW FDA Start: 11-28-2017 EQUINOXE REV TOR QUE DEF SCREW FDA Start: 11-28-2017 4.5MM EQUINOXE R EV CMP SCREW FDA Start: 11-28-2017 4.5MM EQUINOXE R EV CMP SCREW FDA Start: 11-28-2017 4.5MM EQUINOXE R EV CMP SCREW FDA Start: 11-28-2017 EQUINOXE GLENOID K-WIRE FDA Start: 11-28-2017 EQUINOXE PRESERV E HUM STEM FDA Start: 11-28-2017 EQUINOXE REV GLE NOID PLATE FDA Start: 11-28-2017 EQUINOXE REV GLENOSPHERE FDA Start: 11-28-2017 EQUINOXE REV HUM ERAL ADPT TRAY FDA Start: 11-28-2017 36MM HUMERAL LINER FDA Start: 01-09-2019 GLENOSPHERE LOCK ING SCREW FDA Start: 01-09-2019 HUMERAL ADAPTER TRAY FDA Star t: 01-09-2019 HUMERAL STEM PF PLASMA COATED FDA Start: 01-09-2019 COMPRESSION SCREW/LOCKING CAP FDA Start: 01-09-2019 COMPRESSION SCREW/LOCKING CAP FDA Start: 01-09-2019 COMPRESSION SCREW/LOCKING CAP FDA Start: 01-09-2019 COMPRESSION SCREW/LOCKING CAP FDA Start: 01-09-2019 COMPRESSION SCREW/LOCKING CAP FDA Start: 01-09-2019 EQUINOXE REV VITALIY ULDER PLATE FDA Start: 01-09-2019 FIXED ANGLE TORQ UE DEFINING SC FDA Start: 01-09-2019 GLENOSPHERE FDA Start: 01-09-2019 Goals Date Patient Goal Desired Activity /State Personal health goal Comment on above: Formatting of this n ote might be different from the original. To keep BP under 140/80 Formatting of this n ote might be different from the original. To keep BP under 140/80 03/21/23 BP at most recent provider office visits has been <130/80 Personal health goal Comment on above: Formatting of this n ote might be different from the original. Patient has the following High Blood Pressure/Hypertension Goals: Two PCP Visits annually and BMP annually Patient will meet these goals by 04/16/24 (describe interventions done by PCC) Formatting of this n ote might be different from the original. Patient has the following High Blood Pressure/Hypertension Goals: Two PCP Visits annually and BMP annually 03/21/23 BP at recent provider office visits have been <130/80 Patient will meet these goals by 04/16/24 (describe interventions done by PCC) Personal health goal Comment on above: Formatting of this n ote might be different from the original. To check BP at home on a regular basis and record. Personal health goal Comment on above: Formatting of this n ote might be different from the original. Pt would like to lose 10-15 pounds this year.Stay away from Burpple, candies, and bread and will increase activity outside when the weather warms up Comment on above: Formatting of this n ote might be different from the original. To keep BP under 140/80 Functional Status Date Assessment Result Facility 08-28-2024 Total score [AUDIT-C] 2 08/29/19 11:50 AM EDT Randy Aguilera LPN [facility] 04-04-2014 Are you deaf, or do you have serious difficulty hearing No 04/04/2014 2:11 PM Sariah Dennis RN No [facility] 04-04-2014 Are you blind, or do you have serious difficulty seeing, even when wearing glasses No 04/04/2014 2:11 PM Sariah Dennis RN No [facility] 04-04-2014 Do you have serious difficulty walking or climbing stairs No 04/04/2014 2:11 PM Sariah Dennis RN No [facility] 04-04-2014 Do you have difficul ty dressing or bathing No 04/04/2014 2:11 PM Sariah Dennis RN No [facility] 04-04-2014 Because of a physica l, mental, or emotional condition, do you have difficulty doing errands alone such as visiting a physician's office or shopping No 04/04/2014 2:11 PM Sariah Dennis RN No [facility] Mental Status Date Assessment Result Facility 04-04-2014 Because of a physica l, mental, or emotional condition, do you have serious difficulty concentrating, remembering, or making decisions No 04/04/2014 2:11 PM Sariah Dennis RN No [facility] Clinical Notes 09-24-2021 to 01-20-2025 Liane Mosher MA - 12/17/2024 3:08 PM EDTTelephone Encounter - María Elena Brown - 11/05/2024 12:00 PM EDTTelephone Encounter - María Elena Brown - 11/05/2024 12:00 PM EDT Note Date & Type Note Facility 01-20-2025 Note HNO ID: [id number] Author: ELISSA NEGRO APRN.MAINTENANCE AND CUSTODIAN SUPERVISOR Service: ? Author Type: Nurse Practitioner Type: Progress Notes Filed: 01/20/2025 11:26 Note Text: Chief Complaint Patient presents with: Established Patient HPI: Harjit Bradshaw is a 84 year old female who presents here today for follow up breast cancer. Per Dr. Nelson's previous note: H/o was found to have an abnormality in the left breast on a recent screening mammogram. She underwent a left breast, stereotactic mammotome biopsy on 11/24/2015. 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 The ductal carcinoma in situ was noted to be of solid pattern and intermediate nuclear grade and comprised less than 5% the tumor volume. The malignancy was both ER and IA positive (both > 95%, strong) and HER-2 quantified at 1+. The patient then underwent a mastectomy with sentinel lymph node sampling procedure on 12/03/2015. The final pathology demonstrated that within the center portion of the breast there was a 5 mm single focus of cancer. Overall grade was 2. Margins were negative. Lymphovascular invasion was not identified. 6 sentinel lymph nodes were removed all were negative for disease. Current therapy:Femara Began arimidex 12/2015. Changed to aromasin 11/2016. Changed to femara 12/14/18. No new concerns today. Appetite:I'm not hungry but I eat. Wt. down 7# over past year. Energy level:I have very little. Denies fevers or recent illness. Resp:denies cough or sob Cardiac:denies chest pain/palpitations h/o A.fib GI:denies abd pain, n/v, moving bowels regularly :denies dysuria/hematuria Extrem:chronic L shoulder pain, s/p R shoulder replacement, denies new pain today Endo:denies hot flashes Neuro:denies symptoms of neuropathy Skin:denies rashes/lesions Heme:denies bleeding, on eliquis The ROS is otherwise negative. Past medical history, appointments, medications, allergies reviewed. No changes. EXAM: BP 130/90 Pulse 88 Temp 36.3 ?C (97.4 ?F) (Temporal) Wt 74.2 kg (163 lb 9.3 oz) SpO2 95% BMI 30.49 kg/m? APPEARANCE Well appearing, alert, in no acute distress, well-hydrated, well nourished. HEART RRR with normal S1 and S2, no murmurs LUNG clear to auscultation BREAST FEMALE R no mass/nodule, L mastectomy scar no nodule LYMPH NODES No cervical lymphadenopathy, No supraclavicular lymphadenopathy, and No axillary lymphadenopathy. ABDOMEN bowel sounds normoactive, soft, non-tender EXTREMITIES No edema NEURO Awake, alert and oriented x 3, Normal gait, and No involuntary motions. SKIN Skin color, texture, turgor normal, no suspicious rashes or lesions RADIOLOGY: Mammogram 01/10/25: IMPRESSION: There is no mammographic evidence of malignancy in the right breast. Routine screening mammogram is recommended. Annual mammogram will be due in 1 year. BI-RADS Category 1: Negative ASSESSMENT/PLAN: 1. 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 - No concerning findings on exam. - Tolerated aromasin poorly d/t fatigue and crying spells. - Tolerated femara well. - Pt. completed 5 years of AI therapy fall 2020. - Reviewed R mamm with pt. - Continue follow up with PCP for routine. - R mammogram due 2025. - Follow up in one year. - Pt. aware to call office with any questions/concerns. The patient indicates understanding of these issues and agrees with the plan. All documentation from previous visit of 12/04/23-Dr. Nelson/myself was copied and pasted, documentation has been reviewed and edited as necessary for today's visit. 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 APRN.[facility] 01-10-2025 Note HNO ID: [id number] Author: TAYLER CAMPOS RT(R) Service: ? Author [...] PATIENT PRESENTS WITH AN IMPLANTABLE OR ATTACHED DIRECTOR OF CODING: No RADIOLOGY DEPARTMENT: Mammography PERIPHERAL IV DATA: Not applicable SIGNED BY: RT Aleida(R) January 10, 2025 2:33 PM [facility] 12-17-2024 Note HNO ID: [id number] Author: LIANE MOSHER MA Service: ? Author Type: Yarder Operator Type: Progress Notes Filed: 12/17/2024 15:08 Note Text: POPULATION HEALTH NAVIGATION OUTREACH Action/FYI HCC gap closure added to upcoming appointment notes. No other Hm due. Reason for Outreach Care Gap/HCC or Scheduling Wellness Visits Care Gaps due: N/A Patient Contacted: Unable or unnecessary to reach patient: HCC related Updated appointment notes Navigation Signature: Liane Mosher MA December 17, 2024 3:08 PM [facility] 12-17-2024 History of Presen t illness Narrative POPULATION HEALTH NAVIGATION OUTREACH Action/FYI HCC gap closure added to upcoming appointment notes. No other Hm due. Reason for Outreach Care Gap/HCC or Scheduling Wellness Visits Care Gaps due: N/A Patient Contacted: Unable or unnecessary to reach patient: HCC related Updated appointment notes Navigation Signature: Liane Mosher MA December 17, 2024 3:08 PM documented in this encounter [facility] 12-17-2024 Note Patient Outreach (NE TNAV) HARJIT BRADSHAW ([id number]) 1940 F Date Time Provider Department 12/17/24 LIANE MOSHER NETVINIV During your visit today, we recorded the following information about you: Liane Mosher MA 12/17/2024 3:08 PM Signed POPULATION HEALTH NAVIGATION OUTREACH Action/FYI HCC gap closure added to upcoming appointment notes. No other Hm due. Reason for Outreach Care Gap/HCC or Scheduling Wellness Visits Care Gaps due: N/A Patient Contacted: Unable or unnecessary to reach patient: HCC related Updated appointment notes Navigation Signature: Liane Mosher MA December 17, 2024 3:08 PM Allergies As of Date: 12/17/2024 Noted Allergy Reaction MORPHINE 03/03/2014 1 - Mental Status Change 5 - Intolerance 8 - GI Upset Date Reviewed: 08/28/2024 Reviewed by: Randy Aguilera LPN - Fully Assessed Reason for Visit: Population Health Navigation Outreach [3910] Cmt: Nehal/Workbeabdiaziz/ACO Prescriptions as of 12/17/2024 - pravastatin (PRAVACHOL) [...] (HCC) [F33.9] 08/15/2022 Encounter Status:Closed by LIANE MOSHER on 12/17/24 [facility] 11-05-2024 Telephone encounter Note Prescription Refill Information The patient has been identified by name and date of : Yes Caregiver verified no other encounters exist for this prescription request: Yes Caregiver confirmed with patient/requestor that no other refills are due, in the near future, with this provider at this time: Yes The last office visit in the department: 08-28-24 Does the patient have a future office visit with this provider/department: Yes Requested Prescriptions Pending Prescriptions Disp Refills pravastatin (PRAVACHOL) 40 mg tablet 90 tablet 1 Sig: Take 1 tablet by mouth daily at bedtime. metoprolol tartrate, short acting, (LOPRESSOR) 50 mg tablet 180 tablet 3 Sig: Take 1 tablet by mouth two times a day. levothyroxine (SYNTHROID) 112 mcg tablet 90 tablet 1 Sig: Take 1 tablet by mouth daily Take on empty stomach. For thyroid. María Elena Brown November 05, 2024 12:[address] [facility] 11-05-2024 Miscellaneous Notes Prescription Refill Information The patient has been identified by name and date of : Yes Caregiver verified no other encounters exist for this prescription request: Yes Caregiver confirmed with patient/requestor that no other refills are due, in the near future, with this provider at this time: Yes The last office visit in the department: 08-28-24 Does the patient have a future office visit with this provider/department: Yes Requested Prescriptions Pending Prescriptions Disp Refills pravastatin (PRAVACHOL) 40 mg tablet 90 tablet 1 Sig: Take 1 tablet by mouth daily at bedtime. metoprolol tartrate, short acting, (LOPRESSOR) 50 mg tablet 180 tablet 3 Sig: Take 1 tablet by mouth two times a day. levothyroxine (SYNTHROID) 112 mcg tablet 90 tablet 1 Sig: Take 1 tablet by mouth daily Take on empty stomach. For thyroid. María Elena Brown November 05, 2024 12:01 PM documented in this encounter [facility] 10-15-2024 Evaluation note Diagnosis Onset Date Resolution Carotid atherosclerosis acute J chelsi 2024 1:09pm Hyperlipidemia acute October 15, 2024 1:09pm Chronic atrial fibrillation chronic October 15, 2024 1:09pm Hypertension chronic October 15 1:09pm Carotid atherosclerosis acute A ugust 2024 8:28am HELM (dyspnea on exertion) acute December 12, 2024 8:28am Fatigue acute December 12, 2 025 8:28am Hyperlipidemia acute November 8:28am Chronic atrial fibrillation chronic December 12 8:28am Hypertension chronic December 12, 2024 8:28am [facility] Work Phone: 1(219) 265-388207-01-2025 Evaluation note* Diagnosis Onset Date Resolution Status Admit Date Carotid atherosclerosis acute J 2024 1:09pm Hyperlipidemia acute October 15, 2024 1:09pm Chronic atrial fibrillation October 15, 2024 1:09pm Hypertension chronic October 15 1:09pm Carotid atherosclerosis acute A ugust 2024 8:28am HELM (dyspnea on exertion) acute December 12, 2024 8:28am Fatigue acute December 12, 2 025 8:28am Hyperlipidemia acute November 8:28am Chronic atrial fibrillation chronic December 12, 2024 8:28am Hypertension chronic December 12, 2024 8:28am Paroxysmal atrial fibrillation acute January 16, 2025 10:32am [facility] Work Phone: 1(234) 403-808007-01-2025 Evaluation note* Diagnosis Onset Date Resolution Status Admit Date Carotid atherosclerosis acute J 2024 1:09pm Hyperlipidemia acute October 15, 2024 1:09pm Chronic atrial fibrillation October 15, 2024 1:09pm Hypertension chronic October 15 1:09pm Carotid atherosclerosis acute A ugust 2024 8:28am HELM (dyspnea on exertion) acute December 12, 2024 8:28am Fatigue acute December 12, 2 025 8:28am Hyperlipidemia acute November 8:28am Chronic atrial fibrillation chronic December 12, 2024 8:28am Hypertension chronic December 12, 2024 8:28am Hyperlipidemia acute January 10:32am Paroxysmal atrial fibrillation acute January 16, 2025 10:32am Hypertension chronic January 16, 2025 10:32am [facility] Work Phone: 1(599) 473-661906-20-2025 Telephone encounter Note* Telephone Encounter - Jodie Dupont LPN - 10/04/2024 12:45 PM EDT Tried to call pt muliple times phone rings it appears someone picks up then hangs up . Not sure what is happening. Will try again in a bit. [facility]06-20-2025 Miscellaneous Notes* Telephone Encounter - Jodie Dupont LPN - 10/04/2024 12:45 PM EDT Tried to call pt muliple times phone rings it appears someone picks up then hangs up . Not sure what is happening. Will try again in a bit. * Telephone Encounter - Randy Aguilera LPN - 09/27/2024 10:18 AM EDT Message left to return call. * Telephone Encounter - Vini Sparks DO - 09/27/2024 9:50 AM EDT Does she have enough Eliquis to get her to this appt with Community Relations Police Lieutenant? Vini Sparks DO * Telephone Encounter - Dianna Monroe RN - 09/27/2024 9:13 AM EDT Patient returns call and provider message below reviewed. Patient is scheduled to see cardiology on October 15, 2024. Patient reports that her phone is not currently working but she can see when we call so if we are not able to leave a message she will still call back. Continue to use the home phone number. Dianna Monroe RN * Telephone Encounter - Yaa Jordan RN - 09/27/2024 9:06 AM EDT Attempted to reach patient using two phone numbers, no answer. Unable to leave messages. Please try contacting patient again. Yaa Jordan RN * Telephone Encounter - Vini Sparks DO - 09/27/2024 8:37 AM EDT Has she seen the Community Relations Police Lieutenant yet? This is needed Vini Sparks DO * Telephone Encounter - Yaa Jordan RN - 09/26/2024 3:27 PM EDT Patient states she was ordered Eliquis but it is too costly for her to continue. Asking for provider to order an alternative medication that will cost less. Please call patient with reply. Yaa Jordan RN [facility] Telephone encounter Note * Telephone Encounter - Randy Aguilera LPN - 09/27/2024 10:18 AM EDT Message left to return call. [facility]06-13-2025 Telephone encounter Note* Telephone Encounter - Vini Sparks DO - 09/27/2024 9:50 AM EDT Does she have enough Eliquis to get her to this appt with Community Relations Police Lieutenant? Vini Sparks DO [facility]06-13-2025 Telephone encounter Note* Telephone Encounter - Dianna Monroe RN - 09/27/2024 9:13 AM EDT Patient returns call and provider message below reviewed. Patient is scheduled to see cardiology on October 15, 2024. Patient reports that her phone is not currently working but she can see when we call so if we are not able to leave a message she will still call back. Continue to use the home phone number. Dianna Monroe RN [facility]06-13-2025 Telephone encounter Note* Telephone Encounter - Yaa Jordan RN - 09/27/2024 9:06 AM EDT Attempted to reach patient using two phone numbers, no answer. Unable to leave messages. Please try contacting patient again. Yaa Jordan RN [facility]06-13-2025 Telephone encounter Note* Telephone Encounter - Vini Sparks DO - 09/27/2024 8:37 AM EDT Has she seen the Community Relations Police Lieutenant yet? This is needed Vini Sparks DO [facility]06-12-2025 Telephone encounter Note* Telephone Encounter - Yaa Jordan RN - 09/26/2024 3:27 PM EDT Patient states she was ordered Eliquis but it is too costly for her to continue. Asking for provider to order an alternative medication that will cost less. Please call patient with reply. Yaa Jordan RN [facility]06-04-2025 Telephone encounter Note* Telephone Encounter - Dianna Monroe RN - 09/18/2024 9:13 AM EDT The patient has been identified by name and date of : Yes Caregiver verified no other encounters exist for this prescription request: Yes Caregiver confirmed with patient/requestor that no other refills are due, in the near future, with this provider at this time: Yes The last office visit in the department: 08/28/2024 Does the patient have a future office visit with this provider/department: 02/28/2025 Requested Prescriptions Pending Prescriptions Disp Refills amLODIPine (NORVASC) 5 mg tablet 90 tablet 1 Sig: Take 1 tablet by mouth once daily. Dianna Monroe RN September 18, 2024 9:[address] [facility]06-04-2025 Miscellaneous Notes* Telephone Encounter - Dianna Monroe RN - 09/18/2024 9:13 AM EDT The patient has been identified by name and date of : Yes Caregiver verified no other encounters exist for this prescription request: Yes Caregiver confirmed with patient/requestor that no other refills are due, in the near future, with this provider at this time: Yes The last office visit in the department: 08/28/2024 Does the patient have a future office visit with this provider/department: 02/28/2025 Requested Prescriptions Pending Prescriptions Disp Refills amLODIPine (NORVASC) 5 mg tablet 90 tablet 1 Sig: Take 1 tablet by mouth once daily. Dianna Monroe RN September 18, 2024 9:13 AM documented in [facility] encounter[facility] Telephone encounter Note * Telephone Encounter - Randy Aguilera LPN - 09/17/2024 1:08 PM EDT Pt. informed letter sent. [facility]06-03-2025 Miscellaneous Notes* Telephone Encounter - Randy Geiger LPN - 09/17/2024 1:08 PM EDT Pt. informed letter sent. * Telephone Encounter - Vini Sparks DO - 09/17/2024 7:39 AM EDT Please inform patient that her ECHO shows mild tricuspid valve and mitral valve regurgitation only.Otherwise her ECHO is normal. Continue good exercise and BLOOD PRESSURE control Recommend repeat echo in 2-3 years Vini Sparks DO documented [facility] Telephone encounter Note * Telephone Encounter - Vini Sparks DO - 09/17/2024 7:39 AM EDT Please inform patient that her ECHO shows mild tricuspid valve and mitral valve regurgitation only.Otherwise her ECHO is normal. Continue good exercise and BLOOD PRESSURE control Recommend repeat echo in 2-3 years Vini Sparks DO [facility]06-02-2025 Telephone encounter Note* Telephone Encounter - Neha Stuart MA - 09/16/2024 10:15 AM EDT Pt informed, verbalized understanding Neha Stuart MA [facility]06-02-2025 Miscellaneous Notes* Telephone Encounter - Neha Stuart MA - 09/16/2024 10:15 AM EDT Pt informed, verbalized understanding Neha Stuart MA * Telephone Encounter - Neha Stuart MA - 09/16/2024 10:14 AM EDT ----- Message from Ayesha Tran APRN.MAINTENANCE AND CUSTODIAN SUPERVISOR sent at 09/16/2024 7:42 AM EDT ----- Please let patient know that potassium level is back to normal. No concerns. Take care, Ayesha Tran APRN.MAINTENANCE AND CUSTODIAN SUPERVISOR documented in [place] encounterC[place] [id number] Telephone encounter Note * Telephone Encounter - Neha Stuart MA - 09/16/2024 10:14 AM EDT ----- Message from Ayesha Tran APRN.MAINTENANCE AND CUSTODIAN SUPERVISOR sent at 09/16/2024 7:42 AM EDT ----- Please let patient know that potassium level is back to normal. No concerns. Take care, Ayesha Tran APRN.MAINTENANCE AND CUSTODIAN SUPERVISOR [facility]05-30-2025 Telephone encounter Note* Telephone Encounter - Purnima Galvez LPN - 09/13/2024 4:26 PM EDT Patient returned call and went over results, notes from Ayesha Tran MILL HELPER with understanding. Patient may not get lab done until Monday that is when she is coming into [place] again, depends ifshe can do it Monday. [facility]05-30-2025 Miscellaneous Notes* Telephone Encounter - Purnima Galvez LPN - 09/13/2024 4:26 PM EDT Patient returned call and went over results, notes from Ayesha Tran MILL HELPER with understanding. Patient may not get lab done until Monday that is when she is coming into [place] again, depends ifshe can do it Monday. * Telephone Encounter - Jodie Dupont LPN - 09/12/2024 3:44 PM EDT Attempted to call pt rings. Then hear a clicking like someone picks up but no one there. * Telephone Encounter - Ayesha Tran APRN.CNP - 09/12/2024 2:18 PM EDT Please call patient and let her know that overall lab work looks good. Cholesterol levels are greatly improved. Continue on current regimens. Potassium level is elevated. I would like to repeat this. I have placed order to have drawn funmi . All other labs look great. Thank you, Ayesha Tran APRN.MARYANA documented in [facility] encounterSt[facility]05-[facility] Telephone encounter Note * Telephone Encounter - Ailin Alanis - 09/13/2024 3:44 PM EDT Order faxed to [facility] with the request that they reach out to the patient to schedule. [facility]05-30-2025 Miscellaneous Notes* Telephone Encounter - Ailin Alanis - 09/13/2024 3:44 PM EDT Order faxed to [facility] with the request that they reach out to the patient to schedule. * Telephone Encounter - Ayesha Tran APRN.MARYANA - 09/12/2024 1:15 PM EDT Ok with going with [facility]. Please assistance in scheduling/ provide her the number. Thank you, Ayesha Tran APRN.MAINTENANCE AND CUSTODIAN SUPERVISOR * Telephone Encounter - Ailin Alanis - 09/12/2024 8:51 AM EDT Spoke with patient and she does not want to leave [place] for her cardiology appointment. First available at [facility] isn't until March 2025. Please advise if provider is ok with patient going to [facility]. * Telephone Encounter - Neha Stuart MA - 09/10/2024 10:48 AM EDT Pt needs to see cardiology FUN[facility]! Please schedule Neha Stuart MA * Telephone Encounter - Vini Sparks DO - 09/07/2024 11:17 AM EDT I need her to get an appt [facility], I don;t know if she is actually a candidate, until getting their opinion, to change to Warfarin instead of Eliquis Vini Sparks DO * Telephone Encounter - Jodie Dupont LPN - 09/07/2024 10:05 AM EDT Spoke wit pt states has not yet seen legal cashier. * Telephone Encounter - Vini Sparks DO - 09/07/2024 7:28 AM EDT Please call and clarify if she has seen the Community Relations Police Lieutenant yet? She was just recently diagnosed with atrial fibrillation on 08/28 in office Vini Sparks DO * Telephone Encounter - Purnima Galvez LPN - 09/04/2024 2:52 PM EDT Patient calling said pharmacy told her for a month of Eliquis is 460 dollars and she can not affordthat. She said her is on the medication and has to pay that much for 90 days rx. Patient isasking if she could be put on something else that is cheaper? Patient uses [facility] for her pharmacy. Please advise [facility] Telephone encounter Note * Telephone Encounter - Jodie Dupont LPN - 09/12/2024 3:44 PM EDT Attempted to call pt rings. Then hear a clicking like someone picks up but no one there. [facility] Telephone encounter Note* Telephone Encounter - Ayesha Tran APRN.MARYANA - 09/12/2024 2:18 PM EDT Please call patient and let her know that overall lab work looks good. Cholesterol levels are greatly improved. Continue on current regimens. Potassium level is elevated. I would like to repeat this. I have placed order to have drawn funmi . All other labs look great. Thank you, Ayesha Tran APRN.MAINTENANCE AND CUSTODIAN SUPERVISOR [facility] Telephone encounter Note* Telephone Encounter - Ayesha Tran APRN.MAINTENANCE AND CUSTODIAN SUPERVISOR - 09/12/2024 1:15 PM EDT Ok with going with [facility]. Please assistance in scheduling/ provide her the number. Thank you, Ayesha Tran APRN.MAINTENANCE AND CUSTODIAN SUPERVISOR [facility] Telephone encounter Note* Telephone Encounter - Ailin Alanis - 09/12/2024 8:51 AM EDT Spoke with patient and she does not want to leave [place] for her cardiology appointment. First available at [facility] isn't until March 2025. Please advise if provider is ok with patient going to [facility]. [facility] Telephone encounter Note* Telephone Encounter - Neha Stuart MA - 09/10/2024 10:48 AM EDT Pt needs to see cardiology FUNMI! Please schedule Neha Stuart MA [facility]05-24-[facility]25 Telephone encounter Note* Telephone Encounter - Vini Sparks DO - 09/07/2024 11:17 AM EDT I need her to get an appt FUNMI, I don;t know if she is actually a candidate, until getting their opinion, to change to Warfarin instead of Eliquis Vini Sparks DO [facility] Telephone encounter Note* Telephone Encounter - Jodie Dupont LPN - 09/07/2024 10:05 AM EDT Spoke wit pt states has not yet seen legal cashier. [facility] Telephone encounter Note* Telephone Encounter - Vini Sparks DO - 09/07/2024 7:28 AM EDT Please call and clarify if she has seen the Community Relations Police Lieutenant yet? She was just recently diagnosed with atrial fibrillation on 08/28 in office Vini Sparks DO [facility]05-21-[facility] Telephone encounter Note* Telephone Encounter - Purnima Galvez LPN - 09/04/2024 2:52 PM EDT Patient calling said pharmacy told her for a month of Eliquis is 460 dollars and she can not affordthat. She said her is on the medication and has to pay that much for 90 days rx. Patient isasking if she could be put on something else that is cheaper? Patient uses [facility] for her pharmacy. Please advise [facility] Telephone encounter Note* Telephone Encounter - Randy Aguilera LPN - 08/28/2024 1:59 PM EDT Medical records faxed to Dr. Can [facility] Miscellaneous Notes* Telephone Encounter - Randy Geiger LPN - 08/28/2024 1:59 PM EDT Medical records faxed to Dr. Can * Telephone Encounter - Vini Sparks DO - 08/28/2024 1:15 PM EDT Please fax Community Relations Police Lieutenant referral to [facility] per her request Also fax current ECG and office notes Vini Sparks DO documented in this encounterSt. [facility] Telephone encounter Note * Telephone Encounter - Vini Sparks DO - 08/28/2024 1:15 PM EDT Please fax Community [employer] Police Lieutenant referral to [facility] per her request Also fax current ECG and office notes Vini Sparks DO [facility]25 NoteHNO ID: [id number] Author: VINI SPARKS DO Service: ? Author Type: Physician Type: [...] any falls. Denies any regular exercise. States when I walk for a while my knees just start to feel rubbery like they will give out on me. No use of a cane or a [...] SHOULDER Left 01/09/2019 Dr. David Nieto @ [facility]; L reverse total shoulder replacement; [...] 97 (Left Tympanic) Resp 16 Ht 5' 1.417 (1.56m) Wt 165 lb (74.8kg) BMI 30.75 [...] - ECHO - PERFLUTREN LIPID MICROSPHERES 1.1 M (more content not included)...[facility]05-14-2025 NoteHNO ID: [id number] Author: VINI SPARKS, DO Service: ? Author Type: Physician Type: [...] Tympanic) Resp 16 Ht 156 cm (5' 1.42) Wt 74.8 kg (165 lb) BMI 30.75 kg/m? Vision Screening: Follows with optometry/ophthalmology Assessment/Plan Medicare annual wellness visit, subsequent (Z00.00) - Counseled on healthy diet and regular exercise - Fall avoidance information provided - Personalized prevention plan provided - Discussed need for and benefit of weight loss. BMI 30.75 kg/(m2) Vini Sparks [facility]05-14-2025 History of Present illness Narrative* Bridger Vini Tsai, DO - 08/28/2024 12:40 PM EDT CC: Harjit Senia Bradshaw is a 84 year old female who presents to the office for follow up HPI: Has had a few episodes of dark tar like stool over the last few months. No abdominal pain, no obvious BRBPR. Denies any nausea or vomiting. Has had increased stress since her had a seizure inFall 2023 and has had to be caregiving for him B/l knee pain,. Hx of b/l knee replacement surgery in the past. No injuries. Hasn't had any falls. Denies any regular exercise. States when I walk for a while my knees just start to feel rubbery like they will give out on me. No use of a cane or a [...] SHOULDER Left 01/09/2019 Dr. David Nieto @ [facility]; L reverse total shoulder replacement; L distal clavicle resection ARTHRP KNE CONDYLE&PLATU MEDIAL&LAT COMPARTMENTS 2009 Knee replacement, total, bilateral BX BREAST W/DEVICE [...] 97 (Left Tympanic) Resp 16 Ht 5' 1.417 (1.56m) Wt 165 lb (74.8kg) BMI 30.75 kg/(m^2). Gen: A&OX3, NAD, non-toxic appearing HEENT: PERRLA, EOMs intact b/l, nares without drainage, pharynx without erythema, exudate, lesions,or drainage. Uvula midline. Neck: No LAD, no [...] and benefit for weight loss. BMI 30.75 kg/(m^2) 2. HYPERTENSION BENIGN - ICD9: 401.1, ICD10: [...] Check ECHO and carotid US F/u with Community Relations Police Lieutenant for opinion if any further testing is needed 12. Atrial fibrillation, unspecified type (HCC) - ICD9: 427.31, ICD10: I48.91 See above Continue metoprolol Start on eliquis Check ECHO and carotid US F/u with Community Relations Police Lieutenant for opinion if any further testing is needed - CONSULT TO CARDIOLOGY - APIXABAN 2.5 MG TABLET Vini Sparks DO I spent 45 minutes in the visit, with more than 50% of the total [id number] time of the visit in counseling / coordination of care. Return if no improvement. Follow up with Vini Sparks DO. To ER if develops chest pain, shortness of breath. Discussed risks, benefits, alternatives, and potential side effects of medications. Patient/Guardian expressed understanding and agreed with the plan. See patient instructions. Vini Sparks DO [address] [place] [address] * Vini Sparks DO - 08/28/2024 12:40 PM EDT Images from the original note were not included. Harjit Bradshaw is a 84 year old [...] Functional Observation Was the patient's Timed Up & Go test unsteady or >= 12 seconds? No Advance Care Planning Surrogate decision maker and/or advance care plan documented Measurements BP 120/80 Pulse 76 Temp 36.1 C (97 F) (Left Tympanic) Resp 16 Ht 156 cm (5' 1.42) Wt 74.8 kg (165 lb) BMI 30.75 kg/m Vision Screening: Follows with optometry/ophthalmology Assessment/Plan Medicare annual wellness visit, subsequent (Z00.00) - Counseled on healthy diet and regular exercise - Fall avoidance information provided - Personalized prevention plan provided - Discussed need for and benefit of weight loss. BMI 30.75 kg/(m^2) Vini Sparks DO documented in this encounterSt. [facility]03-[facility] History of Present illness Narrative* Siva Knapp MD - 07/11/2024 2:20 PM EDT Chief Complaint Patient presents with: Anxiety HPI Ica Senia Bradshaw is a 83 year old female who presents here today for anxiety. Established pt of Dr. Sparks, new to this office. Pt here with [...] it to stop, stomach feels like it flip/flops, tired, and has no energy. Pt has less ambition, not wanting to go to the store or go around people. Decreased appetite, has lost 10 pounds of weight. Does have hx of depression and anxiety. Denies SI/HI. Reports severity a 9.5/10. Does have family support with her children around, which is helpful. Pt currently takes Zoloft 100 + 50 mg 1 tabpo once daily. Zoloft has been helpful. Has [...] SHOULDER Left 01/09/2019 Dr. David Nieto @ [facility]; L reverse total shoulder replacement; L distal clavicle resection ARTHRP KNE CONDYLE&PLATU MEDIAL&LAT COMPARTMENTS 2008 Knee replacement, total, bilateral BX BREAST W/DEVICE 1ST LESION STEREOTACTIC GUID Left 11/24/2015 BX/EXC LYMPH NODE OPEN DEEP AXILLARY NODE Left 12/07/2015 CHOLECYSTECTOMY Cholecystectomy INJ RADIOACTIVE TRACER FOR ID OF SENTINEL NODE 12/07/2015 MASTECTOMY, SIMPLE, COMPLETE Left 12/07/2015 TONSILLECTOMY HX Family History FAMILY HISTORY Problem Relation Age of Onset Cancer Mother ? no details, 85 Coronary Artery Disease Father [place], 94 Cancer Sister 57 liver Cancer Brother [...] BP Cuff Size: Regular Adult) Pulse 60 Resp18 Wt 74.7 kg (164 lb 10.9 oz) BMI 30.70 kg/m General Appearance: Well appearing, alert, in no [...] Decision Making Level: 4 - Moderate Siva Knapp MD documented in this encounterSt. [facility]03-27-2025 NoteHNO ID: [id number] Author: SIVA KNAPP MD Service: ? Author Type: Physician Type: Progress Notes Filed: 07/11/2024 14:56 Note Text: Chief Complaint Patient presents with: Anxiety HPI Ica Senia Bradshaw is a 83 year old female who presents here today for anxiety. Established pt of Dr. Sparks, new to this office. Pt here with [...] it to stop, stomach feels like it flip/flops, tired, and has no energy. Pt has [...] SHOULDER Left 01/09/2019 Dr. David Nieto @ [facility]; L reverse total shoulder replacement; L distal clavicle resection ARTHRP KNE CONDYLEANDPLATU MEDIALANDLAT COMPARTMENTS 2009 Knee replacement, total, bilateral BX BREAST W/DEVICE 1ST LESION STEREOTACTIC GUID Left 11/24/2015 BX/EXC LYMPH NODE OPEN DEEP AXILLARY NODE Left 12/07/2015 CHOLECYSTECTOMY Cholecystectomy INJ RADIOACTIVE TRACER FOR ID OF SENTINEL NODE 12/07/2015 MASTECTOMY, SIMPLE, COMPLETE Left 12/07/2015 TONSILLECTOMY HX Family History FAMILY HISTORY Problem Relation Age of Onset Cancer Mother ? no details, 85 Coronary Artery Disease Father [place], 94 Cancer Sister 57 liver Cancer Brother [...] Completed Colorectal Cancer Screening Discontinued Advance Directive Discussio (more content not included)...[facility]03-26-2025 Telephone encounter Note* Telephone Encounter - Vini Sparks DO - 07/10/2024 2:28 PM EDT See below Patient needs to be seen by MAINTENANCE AND CUSTODIAN SUPERVISOR since I am not in tomorrow and don't have any option to see her Monday and am off next week Vini Sparks DO [facility]03-26[facility]25 Miscellaneous Notes* Telephone Encounter - Vini Sparks DO - 07/10/2024 2:28 PM EDT See below Patient needs to be seen by MAINTENANCE AND CUSTODIAN SUPERVISOR since I am not in tomorrow and don't have any option to see her Monday and am off next week Vini Sparks DO * Telephone Encounter - Chikis Leone RN - 07/10/2024 12:34 PM EDT HEALTHY AT HOME OUTREACH Provider Action/FYI: Advised patient to be seen within 24 hours due to anxiety symptoms. Patient would like to see Dr. Sparks. Lexx, you've reached [facility] Home, my name is Chikis Leone RN, I'm a registered nurse, and we are on a recorded line. Patient identified by name and date of Spoke with patient Verify that the patient is a [facility] patient: Yes Are you having any symptoms today? Yes - Go to Fatuma Ramirez Protocol Symptoms present: anxiety Based on what you've told me, I do recommend that you: Routed to Navigation Do you understand my recommendations? (After patient verifies understanding) If you develop any newsymptoms, your condition worsens, then GO TO THE EMERGENCY ROOM OR CALL 911. If you have any questions, please call us back. Reason for Disposition Patient sounds very upset or troubled to the triager Answer Assessment - Initial Assessment Questions 1. CONCERN: over the last month symptoms have become worse since having to care more for 2. ANXIETY SYMPTOMS: Anxious, legs feel like rubber, hands get shaky, Bottom lip starts shaking andcan hardly get it to stop; tired, no energy Seems like stomach flips and flops 3. ONSET: see above 4. SEVERITY: 9.5/10 5. FUNCTIONAL IMPAIRMENT: having less ambition, not wanting to go to the grocery store or go aroundpeople 6. HISTORY: history of depression and anxiety 7. RISK OF HARM - SUICIDAL IDEATION: denies 8. TREATMENT: medication-Zoloft 9. THERAPIST: Denies 10. POTENTIAL TRIGGERS: see above 11. PATIENT SUPPORT: family/children are very helpful 12. OTHER SYMPTOMS: see above 13. : N/A Protocols used: Anxiety and Panic [id number] documented in this encounterSt. Charles Hospital03-26-2025 NoteHNO ID: [id number] Author: DORITA TIJERINA MA Service: ? Author Type: Yarder Operator Type: Progress Notes Filed: 07/10/2024 13:27 Note Text: POPULATION HEALTH NAVIGATION OUTREACH Action/FYI Advised patient to be seen within 24 hours due to anxiety symptoms. Patient would like to see Dr. Sparks. Call received from Chikis Leone RN - [...] Patient scheduled/pended orders: Follow-up Appointment 07/11/[address] [facility] with SIVA KNAPP - [facility] - Medicare Wellness 01[facility]10/2025 in [facility] with [facility] - 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 in female, estrogen receptor positive (HCC) [C50.112, Z17.0]; Encounter for screening mammogram for high-risk patient [Z12.31] , Comment: RIGHT 01/20/2025 in [facility] with ELISSA NEGRO - 1 YR OV/MAMM 01/10* Navigation Signature: Dorita Hopkins MA July 10, 2024 12:55 [facility]03-26-2025 History of Present illness Narrative* Dorita Tijerina MA - 07/10/2024 12:55 PM EDT POPULATION HEALTH NAVIGATION OUTREACH Action/FYI Advised patient to be seen within 24 hours due to anxiety symptoms. Patient would like to see Dr. Sparks. Call received from Chikis Leone RN - above message copied from Triage Encounter. RN did not have patient on the phone at time of call. Call placed to patient to assist in scheduling OV with PCP to discuss anxiety, patient agreeable toschedule with PCP/Team. Reason for Outreach Healthy at Home Care Gaps due: N/A Call received from: Nurse Chikis Leone RN Patient Contacted: Spoke to patient/parent/or legal guardian Patient identified by name and date of Yes Healthy at Home actions taken: Patient scheduled/pended orders: Follow-up Appointment 07/11/[address] [facility] with SIVA KNAPP - An[facility] - Medicare Wellness 01/10/2025 in [facility] with [facility] - 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 in female, estrogen receptor positive (HCC) [C50.112, Z17.0]; Encounter for screening mammogram for high-risk patient [Z12.31] , Comment: RIGHT 01/20/2025 in [facility] with ELISSA NEGRO - 1 YR OV/MAMM 01/10* Navigation Signature: Dorita Hopkins MA July 10, 2024 12:55 PM documented in this encounterSt. [facility] Hospital03-26-2025 Telephone encounter Note * Telephone Encounter - Chikis Leone RN - 07/10/2024 12:34 PM EDT HEALTHY AT HOME OUTREACH Provider Action/FYI: Advised patient to be seen within 24 hours due to anxiety symptoms. Patient would like to see Dr. Sparks. Hello, you've reached [facility], my name is Chikis Leone RN, I'm a registered nurse, and we are on a recorded line. Patient identified by name and date of Spoke with patient Verify that the patient is a [facility] patient: Yes Are you having any symptoms today? Yes - Go to Burris Ramirez Protocol Symptoms present: anxiety Based on what you've told me, I do recommend that you: Routed to Navigation Do you understand my recommendations? (After patient verifies understanding) If you develop any newsymptoms, your condition worsens, then GO TO THE EMERGENCY ROOM OR CALL 911. If you have any questions, please call us back. Reason for Disposition Patient sounds very upset or troubled to the triager Answer Assessment - Initial Assessment Questions 1. CONCERN: over the last month symptoms have become worse since having to care more for 2. ANXIETY SYMPTOMS: Anxious, legs feel like rubber, hands get shaky, Bottom lip starts shaking andcan hardly get it to stop; tired, no energy Seems like stomach flips and flops 3. ONSET: see above 4. SEVERITY: 9.5/10 5. FUNCTIONAL IMPAIRMENT: having less ambition, not wanting to go to the grocery store or go aroundpeople 6. HISTORY: history of depression and anxiety 7. RISK OF HARM - SUICIDAL IDEATION: denies 8. TREATMENT: medication-Zoloft 9. THERAPIST: Denies 10. POTENTIAL TRIGGERS: see above 11. PATIENT SUPPORT: family/children are very helpful 12. OTHER SYMPTOMS: see above 13. : N/A Protocols used: Anxiety and Panic [id number] [facility]03-26-2025 NotePatient Outreach (NETNAV) HARJIT BRADSHAW ([id number]) 1940 F Date Time Provider Department 07/10/24 DORITA TIJERINA During your visit today, we recorded the following information about you: Dorita Tijerina MA 07/10/2024 1:27 PM Signed POPULATION HEALTH NAVIGATION OUTREACH Action/FYI Advised patient to be seen within 24 hours due to anxiety symptoms. Patient would like to see Dr. Sparks. Call received from Chikis Leone RN - [...] Patient scheduled/pended orders: Follow-up Appointment 07/11/[address] [facility] with SIVA KNAPP - Anxiety 08/28/[address] [facility] with VINI SPARKS - Medicare Wellness 01/10/2025 in [facility] with [facility] - 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 in female, estrogen receptor positive (HCC) [C50.112, Z17.0]; Encounter for screening mammogram for high-risk patient [Z12.31] , Comment: RIGHT 01/20/2025 in [facility] with ELISSA NEGRO - 1 YR OV/MAMM 01/10* Navigation Signature: Dorita eLivaLOULOU polanco July 10, 2024 12:55 PM Allergies As of Date: 07/10/2024 Noted Allergy Reaction MORPHINE 03/03/2014 1 - Mental Status Change 5 - Intolerance 8 - GI Upset Date Reviewed: 02/26/2024 Reviewed by: Randy Aguilera LPN - Fully Assessed Reason for Visit: Population Health Navigation Outreach [3910] Cmt: Healthy at Home - [facility] Prescriptions as of 07/10/2024 - sertraline [...] 08/15/2022 Encounter Status:Closed by DORITA TIJERINA on 07/10/24[facility]11-19-2024 Telephone encounter Note* Telephone Encounter - [place] Sarah Kinney - 03/05/2024 4:49 PM EST Patient returned phone call. Please call her on her 's cell: [phone]. [facility]11-19-[facility] Miscellaneous Notes* Telephone Encounter - [place] Sarah Kinney - 03/05/2024 4:49 PM EST Patient returned phone call. Please call her on her 's cell: [phone]. * Telephone Encounter - Randy Aguilera LPN - 03/05/2024 4:45 PM EST Tried to inform no answer or VM. * Telephone Encounter - Vini Sparks DO - 03/05/2024 4:22 PM EST The following approved medication requests have been transmitted electronically. Requested Prescriptions Signed Prescriptions Disp Refills sertraline (ZOLOFT) 100 mg tablet 135 tablet 1 Sig: Take 1.5 tablets daily at bedtime Authorizing Provider: VINI SPARKS DO * Telephone Encounter - Kiya Angeles RN - 03/05/2024 9:22 AM EST Please see below. Pt appears to have [...] for 90 tablets with 1 refill. Called [facility] and spoke with pharmacist Camilla. Confirmed with her the last time that the patient picked up her prescription. She states pt picked up her refill on 01/11 which would have been a 45 day supply. Since pt states she is out of medication, itappears pt had to be taking more than [...] date is 07/09/23 and prescription number of [id number]. Pt states that sometimes she will empty her pills from a new bottle to an old bottle which would explain the June date. Asked pt to look and see if she has any other bottles of Zoloft. Pt denies. After more discussion, pt states that she has been taking 2 tablets at bedtimefor the last 1-2 weeks. Then pt stated she took 1 tablet this morning at 8 am. A couple minutes later, she states she takes 1 in the morning and sometimes 1 at night. Asked about reporting to the pharmacist that she was taking 150 mg which would be 3 pills. She states that she told him Dr. Bustamante going to increase her to 150 mg. [...] to speak with her daughter Lexy, Jesus, [id number] Owen and son Bravo. Nurse concerned about pt so asked if it was okay to contact celinaUmaña and talk with her about her confusion with medications. Ica okay with speaking with her. She also asked that I call her daughter in law Owen as she lives closer and will probably bethe one to help with her pills on Monday. Called and spoke with both daughter Lexy and daughter in law Owen about pt's confusion on medications. They will start helping pt with her medications. Eloy Pugh given pt's next appt date and time so that she can come to appt. Also instructed Lexy to contact us if she starts noticing more confusion. Verbalized understanding. * Telephone Encounter - Ava Roberts PA-C - 03/04/2024 10:45 AM EST Please confirm with patient her dose-it appears from last visit and refill that she is taking Zoloft 100 mg - 2 tabs at bedtime. * Telephone Encounter - Purnima Galvez LPN - 02/29/2024 9:14 AM EST [facility] [place] pharmacy calling asking to clarify directions on Sertraline 100 mg rx please. Rx has2 sets of directions on the rx. Aware PCP is out of the office on and they will notify thepatient also. Please advise documented in this encounterSt[facility]11-[facility]24 Telephone encounter Note * Telephone Encounter - Randy Aguilera LPN - 03/05/2024 4:45 PM EST Tried to inform no answer or VM. [facility]-19-[facility] Telephone encounter Note* Telephone Encounter - Vini Sparks DO - 03/05/2024 4:22 PM EST The following approved medication requests have been transmitted electronically. Requested Prescriptions Signed Prescriptions Disp Refills sertraline (ZOLOFT) 100 mg tablet 135 tablet 1 Sig: Take 1.5 tablets daily at bedtime Authorizing Provider: VINI SPARKS DO [facility]11-19-2024 Telephone encounter Note* Telephone Encounter - Kiya Angeles RN - 03/05/2024 9:22 AM EST Please see below. Pt appears to have [...] for 90 tablets with 1 refill. Called [facility] and spoke with pharmacist Camilla. Confirmed with her the last time that the patient picked up her prescription. She states pt picked up her refill on 01/11 which would have been a 45 day supply. Since pt states she is out of medication, itappears pt had to be taking more than [...] date is 07/09/23 and prescription number of [id number]. Pt states that sometimes she will empty her pills from a new bottle to an old bottle which would explain the June date. Asked pt to look and see if she has any other bottles of Zoloft. Pt denies. After more discussion, pt states that she has been taking 2 tablets at bedtimefor the last 1-2 weeks. Then pt stated she took 1 tablet this morning at 8 am. A couple minutes later, she states she takes 1 in the morning and sometimes 1 at night. Asked about reporting to the pharmacist that she was taking 150 mg which would be 3 pills. She states that she told him Dr. Bustamante going to increase her to 150 mg. [...] to speak with her daughter Lexy, Jesus, [id number] Owen and son Bravo. Nurse concerned about pt so asked if it was okay to contact shelton Pugh and talk with her about her confusion with medications. Ica okay with speaking with her. She also asked that I call her daughter in law Owen as she lives closer and will probably bethe one to help with her pills on Monday. Called and spoke with both daughter Lexy and daughter in law Owen about pt's confusion on medications. They will start helping pt with her medications. Daughter Lexy given pt's next appt date and time so that she can come to appt. Also instructed Lexy to contact us if she starts noticing more confusion. Verbalized understanding. [facility]11-18-2024 Telephone encounter Note* Telephone Encounter - Ava Roberts PA-C - 03/04/2024 10:45 AM EST Please confirm with patient her dose-it appears from last visit and refill that she is taking Zoloft 100 mg - 2 tabs at bedtime. [facility] Work Phone: [phone] 569-888311-18-2024 NoteHNO ID: [id number] Author: OWEN LOPEZ RN Service: ? Author Type: Registered Nurse [...] message. Will reattempt call Recorded Message stated call did not go through, attempted 2 x Owen Lopez RN March 04, 2024 10:06 [facility]11-18-2024 History of Present illness Narrative* Owen Lopez RN - 03/04/2024 10:02 AM EST CDM Telephonic Outreach Provider Action/MISBAH HTN, depression, breast cancer with mast, + [...] message. Will reattempt call Recorded Message stated call did not go through, attempted 2 x Owen Lopez RN March 04, 2024 10:06 AM documented in this encounterSt. [facility]11[facility]24 NotePatient Outreach ([facility]) HARJIT BRADSHAW ([id number]) 1940 F Date Time Provider Department 03/04/24 OWEN LOPEZ [facility] During your visit today, we recorded the following information about you: Owen Lopez, RN 03/04/2024 10:07 AM Signed [facility] Telephonic Outreach Provider Scooter/MISBAH HTN, depression, breast cancer with mast, + [...] message. Will reattempt call Recorded Message stated call did not go through, attempted 2 x Owen Lopez RN March 04, 2024 10:06 AM Allergies [...] (HCC) [F33.9] 08/15/2022 Encounter Status:Closed by OWEN LOPEZ on 03/04/24[facility] 02-29-2024 Telephone encounter Note* Telephone Encounter - Purnima Galvez LPN - 02/29/2024 9:14 AM EST [facility] calling asking to clarify directions on Sertraline 100 mg rx please. Rx has2 sets of directions on the rx. Aware PCP is out of the office on and they will notify thepatient also. Please advise [facility]11-13-2024 Telephone encounter Note* Telephone Encounter - Deana Ferreira MA - 02/28/2024 3:00 PM EST [facility] [place] [facility] prescription on file and will get ready for turkey picker. Deana Ferreira MA [facility]11-13-2024 Miscellaneous Notes* Telephone Encounter - Deana Ferreira MA - 02/28/2024 3:00 PM EST [facility] [place] [facility] both prescription on file and will get ready for turkey picker. Deana Ferreira MA * Telephone Encounter - Tiarra Adler - 02/28/2024 2:47 PM EST [facility] is calling Vini Sparks DO today. Patient was at [facility] today and they have no record of receiving two of the medications sent on Monday sertraline (ZOLOFT) 100 mg tablet amLODIPine (NORVASC) 5 mg tablet Please contact pharmacy or send new scripts. documented in this encounterSt. [facility]11-13-2024 Telephone encounter Note * Telephone Encounter - Tiarra Adler - 02/28/2024 2:47 PM EST [facility] is calling Vini Sparks DO today. Patient was at [facility] today and they have no record of receiving two of the medications sent on Monday sertraline (ZOLOFT) 100 mg tablet amLODIPine (NORVASC) 5 mg tablet Please contact pharmacy or send new scripts. [facility]11-11-2024 NoteHNO ID: [id number] Author: VINI SPARKS DO Service: ? Author Type: Physician Type: [...] SHOULDER Left 01/09/2019 Dr. David Nieto @ [facility]; L reverse total shoulder replacement; [...] Counseled on healthy diet and regular exercise (more content not included)...[facility]11-11-2024 History of Present illness Narrative* Vini Sparks Eulalio, - 02/26/2024 3:47 PM EST CC: Harjit Senia Bradshaw is a 83 [...] SHOULDER Left 01/09/2019 Dr. David Nieto @ [facility]; L reverse total shoulder replacement; L distal clavicle resection ARTHRP KNE CONDYLE&PLATU MEDIAL&LAT COMPARTMENTS 2009 Knee replacement, total, bilateral BX BREAST W/DEVICE [...] Resp 16 Wt 169 lb (76.7kg) Gen: A&OX3, NAD, non-toxic appearing, hard of hearing, wearing glasses, pleasant, well dressed HEENT: PERRLA, EOMs intact b/l, nares without drainage, pharynx without erythema, exudate, lesions,or drainage. Uvula midline. Neck: No LAD, no [...] and benefit of weight loss. BMI 31.50 kg/(m^2) - AMLODIPINE 5 MG TABLET 3. Need [...] vaccine - ICD9: V04.89, ICD10: Z23 - [employer] COVID-19 VACCINE AGE 12+ YR (COMIRNATY) 7. [...] 780.79, ICD10: R53.83 Labs as ordered. Vini Sparks DO Return if no improvement. Follow up with Vini Sparks DO. To ER if develops chest pain, shortness of breath. Discussed risks, benefits, alternatives, and potential side effects of medications. Patient/Guardian expressed understanding and agreed with the plan. See patient instructions. Vini Sparks DO [address] [place] [address] documented in this encounterSt. [facility]11-11-2024 Instructions* Patient Instructions* Vini Sparks DO - 02/26/2024 11:08 AM EST Magnesium glycinate or gluconate 400-500 mg in the evening to help symptoms Vitamin B12 once a day 1000 mcg a day in the AM documented in this encounterSt. [facility] Hospital10-28-2024 Telephone encounter Note * Telephone Encounter - Talia Toro RN - 02/12/2024 10:58 AM EDT Pt called and is notified of providers message and instructions. Pt voices understanding. Talia Toro RN [facility]10-28-2024 Miscellaneous Notes* Telephone Encounter - Talia Toro RN - 02/12/2024 10:58 AM EDT Pt called and is notified of providers message and instructions. Pt voices understanding. Talia Toro RN * Telephone Encounter - Vini Sparks DO - 02/10/2024 12:35 PM EDT Orders placed for fasting labs Please inform patient Vini Sparks DO * Telephone Encounter - Jyoti Santoyo - 02/09/2024 3:18 PM EDT Ica is calling Vini Sparks DO today with concern regarding Lab Orders Patient would like to do lab work prior to upcoming appointment. Thank you. Patient has been identified by name and birthdate. Duration of symptoms: N/A Person calling: self Call patient at: at home [phone] (home) Was an appointment scheduled: No Closing statement: Results or non-symptom based questions: Thank you for [facility], your call will be returned within the next business day. Jyoti Kinney documented in this encounterSt. Charles Hospital10-26-2024 Telephone encounter Note * Telephone Encounter - Vini Sparks DO - 02/10/2024 12:35 PM EDT Orders placed for fasting labs Please inform patient Vini Sparks DO [facility]10-25-2024 Telephone encounter Note* Telephone Encounter - Jyoti Santoyo - 02/09/2024 3:18 PM EDT Ica is calling Vini Sparks DO today with concern regarding Lab Orders Patient would like to do lab work prior to upcoming appointment. Thank you. Patient has been identified by name and birthdate. Duration of symptoms: N/A Person calling: self Call patient at: at home [phone] (home) Was an appointment scheduled: No Closing statement: Results or non-symptom based questions: Thank you for [facility], your call will be returned within the next business day. Jyoti Kinney [facility]10-25-2024 Telephone encounter Note* Telephone Encounter - Jyoti Santoyo - 02/09/2024 3:17 PM EDT Prescription Refill Information The patient has been identified by name and date of : Yes Caregiver verified no other encounters exist for this prescription request: Yes Caregiver confirmed with patient/requestor that no other refills are due, in the near future, with this provider at this time: Yes The last office visit in the department: 08-22-23 Does the patient have a future office visit with this provider/department: Yes Requested Prescriptions Pending Prescriptions Disp Refills losartan (COZAAR) 50 mg tablet 90 tablet 2 Sig: Take 1 tablet by mouth once daily. Jyoti Owenselizabeth Kinney February 09, 2024 3:[address] [facility]10-25-2024 Miscellaneous Notes* Telephone Encounter - Jyoti Santoyo - 02/09/2024 3:17 PM EDT Prescription Refill Information The patient has been identified by name and date of : Yes Caregiver verified no other encounters exist for this prescription request: Yes Caregiver confirmed with patient/requestor that no other refills are due, in the near future, with this provider at this time: Yes The last office visit in the department: 08-22-23 Does the patient have a future office visit with this provider/department: Yes Requested Prescriptions Pending Prescriptions Disp Refills losartan (COZAAR) 50 mg tablet 90 tablet 2 Sig: Take 1 tablet by mouth once daily. Jyoti Owen Kinney February 09, 2024 3:17 PM documented in this encounterSt. Charles Hospital10-15-2024 NoteHNO ID: [id number] Author: OWEN LOPEZ RN Service: ? Author Type: Registered Nurse [...] BP at home 02/26/2024 10:40 AM Vini Sparks, [facility] [place] 6 month follow up Contacted for: Routine Telephonic Outreach Contact made with patient: No, unable to leave message. Will reattempt call Owen Lopez RN January 30, 2024 2:04 [facility]10-12-2024 NoteHNO ID: [id number] Author: OWEN LOPEZ RN Service: ? Author Type: Registered Nurse [...] BP at home 02/26/2024 10:40 AM Vini Sparks, [facility] [place] 6 month follow up Contacted for: Routine Telephonic Outreach Contact made with patient: No, unable to leave message. Will reattempt call Owen Lopez RN January 27, 2024 4:44 [facility] History of Present illness Narrative* Owen Lopez RN - 01/27/2024 4:12 PM EDT CDM Telephonic Outreach Provider Action/FYI HTN, depression, breast cancer with mast, + for Covid in June Goal Pt would like to lose 10-15 pounds this year.Stay away from cookies, candies, and bread and will increase activity outside when the weather warms up, check BP at home 02/26/2024 10:40 AM Vini Sparks, [facility] [place] 6 month follow up Contacted for: Routine Telephonic Outreach Contact made with patient: No, unable to leave message. Will reattempt call Owen Lopez RN January 27, 2024 4:44 PM documented in this encounterSt. Charles Hospital10-12-2024 NotePatient Outreach ([facility]) HARJIT BRADSHAW ([id number]) 1940 F Date Time Provider Department 01/27/24 OWEN LOPEZ During your visit today, we recorded the following information about you: Owen Lopez RN 01/27/2024 4:46 PM Signed CD Telephonic Outreach Provider Action/MISBAH HTN, depression, breast cancer with mast, + for Covid in June Goal Pt would like to lose 10-15 pounds this year.Stay away from cookies, candies, and bread and will increase activity outside when the weather warms up, check BP at home 02/26/2024 10:40 AM Vini Sparks, DO [facility] [place] 6 month follow up Contacted for: Routine Telephonic Outreach Contact made with patient: No, unable to leave message. Will reattempt call Owen Lopez RN January 27, 2024 4:44 PM Owen Lopez RN 01/30/2024 2:05 PM Signed [facility] Telephonic Outreach Provider Action/MISBAH HTN, depression, breast cancer with mast, + for Covid in June Goal Pt would like to lose 10-15 pounds this year.Stay away from cookies, candies, and bread and will increase activity outside when the weather warms up, check BP at home 02/26/2024 10:40 AM Vini Sparks, [facility] [place] 6 month follow up Contacted for: Routine Telephonic Outreach Contact made with patient: No, unable to leave message. Will reattempt call Owen Lopez RN January 30, 2024 2:04 PM Allergies As of Date: 01/27/2024 Noted Allergy Reaction MORPHINE 03/03/2014 1 - Mental Status Change 5 - Intolerance 8 - GI Upset Date Reviewed: 12/04/2023 Reviewed by: 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 APRN.MAINTENANCE AND CUSTODIAN SUPERVISOR - Fully Assessed Reason for Visit: community monitoring outreach [Other] Cmt: [facility] telephonic Prescriptions as of 01/30/2024 - sertraline [...] (HCC) [F33.9] 08/15/2022 Encounter Status:Closed by OWEN LOPEZ on 01/27/24[facility] 01-12-2024 Telephone encounter Note* Telephone Encounter - Ailin Alanis - 01/12/2024 10:50 AM EDT Spoke with patient and scheduled. Printed and mailed schedule to patient. Ailin Alanis [facility]09-27-2024 Miscellaneous Notes* Telephone Encounter - Ailin Alanis - 01/12/2024 10:50 AM EDT Spoke with patient and scheduled. Printed and mailed schedule to patient. Ailin Alanis * Telephone Encounter - Fabiana De Los Santos LPN - 01/12/2024 9:16 AM EDT Patient still needs scheduled. Fabiana De Los Santos LPN * Telephone Encounter - Herminia Levin - 01/12/2024 8:52 AM EDT Pt called back and was given info about mammogram. Patient voiced understanding. * Telephone Encounter - Fabiana De Los Santos LPN - 01/12/2024 8:48 AM EDT Unable to get through to patient. Fabiana De Los Santos LPN * Telephone Encounter - Ailin Alanis - 01/11/2024 1:57 PM EDT Attempted twice to contact patient - phone rings once, then sounds like someone picks up, hear 2 clicks about 4 seconds apart and then the call disconnects. Ailin Alanis * Telephone Encounter - 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 APRN.CNP - 01/11/2024 1:51 PM EDT Please inform pt. that her R mammogram is fine. R mammogram due in one year-OV one week after mammogram. Thank you. 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 APRN.MAINTENANCE AND CUSTODIAN SUPERVISOR documented in this encounterSt. Charles Hospital09-27-2024 Telephone encounter Note * Telephone Encounter - Fabiana De Los Santos LPN - 01/12/2024 9:16 AM EDT Patient still needs scheduled. Fabiana De Los Santos LPN [facility]09-27-2024 Telephone encounter Note* Telephone Encounter - Herminia Levin - 01/12/2024 8:52 AM EDT Pt called back and was given info about mammogram. Patient voiced understanding. [facility]09-27-2024 Telephone encounter Note* Telephone Encounter - Fabiana De Los Santos LPN - 01/12/2024 8:48 AM EDT Unable to get through to patient. Fabiana De Los Santos LPN [facility]09-26-2024 Telephone encounter Note* Telephone Encounter - Ailin Alanis - 01/11/2024 1:57 PM EDT Attempted twice to contact patient - phone rings once, then sounds like someone picks up, hear 2 clicks about 4 seconds apart and then the call disconnects. Ailin Alanis [facility]09-26-2024 Telephone encounter Note* Telephone Encounter - 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 APRN.CNP - 01/11/2024 1:51 PM EDT Please inform pt. that her R mammogram is fine. R mammogram due in one year-OV one week after mammogram. Thank you. 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 APRN.MAINTENANCE AND CUSTODIAN SUPERVISOR [facility]09-25-2024 Note* Letter - Coordinator, Mammography - 01/10/2024 9:36 PM EDT January 11, 2024 PID: [id number] Harjit Bradshaw [address] [place] [id number] Dear Ms. Bradshaw, We are pleased to inform you that the results of your recent breast imaging exam on 01/08/2024 are normal. Breast tissue can be either dense or not dense. Dense tissue makes it harder to find breast cancer on a mammogram and also raises the risk of developing breast cancer. Your breast tissue is dense. Insome people with dense tissue, other imaging tests in addition to a mammogram may help find cancers. Talk to your healthcare provider about breast density, risks for breast cancer, and your individual situation. Early detection of cancer is very important. We also understand recommendations regarding breast cancer screening are controversial. Please discuss with your primary care provider which strategy is best for you and whether a mammogram is right for you. Your imaging studies and report will be kept on file at [facility] as part of your permanent medical record and are available for your continuing care. Thank you for allowing us to help in meeting your health care needs. Sincerely, Dr. Whiteside Interpreting Radiologist [facility] [place] (Normal over 40) [facility]09-25-2024 Miscellaneous Notes* Letter - Coordinator, Mammography - 01/10/2024 9:36 PM EDT January 11, 2024 PID: [id number] Harjit Bradshaw [address] [place] [phone] Dear Ms. Bradshaw, We are pleased to inform you that the results of your recent breast imaging exam on 01/08/2024 are normal. Breast tissue can be either dense or not dense. Dense tissue makes it harder to find breast cancer on a mammogram and also raises the risk of developing breast cancer. Your breast tissue is dense. Insome people with dense tissue, other imaging tests in addition to a mammogram may help find cancers. Talk to your healthcare provider about breast density, risks for breast cancer, and your individual situation. Early detection of cancer is very important. We also understand recommendations regarding breast cancer screening are controversial. Please discuss with your primary care provider which strategy is best for you and whether a mammogram is right for you. Your imaging studies and report will be kept on file at [facility] as part of your permanent medical record and are available for your continuing care. Thank you for allowing us to help in meeting your health care needs. Sincerely, Dr. Whiteside Interpreting Radiologist [facility] (Normal over 40) documented in this encounterSt. Charles Hospital09-23-2024 History of Present illness Narrative* Anila Flynn Mammo Tech - 01/08/2024 11:30 AM EDT Radiology Service Progress Note PATIENT NAME: Harjit Bradshaw DATE OF SERVICE: January 08, 2024 TIME: 11:10 AM PATIENT IDENTITY VERIFICATION COMPLETED USING TWO (2) IDENTIFIERS: Name and Date of confirmedby patient verbally. FALL SCREENING: Has the patient had 2 falls in the last year or 1 fall with injury or currently using an Ambulatory Assistive Device (Walker, Cane, Wheelchair, Crutches, etc.)? No PATIENT GENDER DATA: Female. status: : No status: NO. PATIENT RELEVANT IMPLANT DATA REVIEWED: Not Applicable PATIENT PRESENTS WITH AN IMPLANTABLE OR ATTACHED DIRECTOR OF CODING: No RADIOLOGY DEPARTMENT: Mammography PERIPHERAL IV DATA: Not applicable SIGNED BY: Patricia Rudolph January 08, 2024 11:10 AM documented in this encounterSt. Charles Hospital09-13-2024 History of Present illness Narrative* Owen Lopez RN - 12/29/2023 9:47 AM EDT CDM Telephonic Outreach Provider Action/FYI HTN, depression, breast cancer with mast, + for Covid in June Goal Pt would like to lose 10-15 pounds this year.Stay away from cookies, candies, and bread and will increase activity outside when the weather warms up, check BP at home Contacted for: Routine Telephonic Outreach Contact made with patient: No, unable to leave message. Will reattempt call in two weeks Owen Lopez RN December 29, 2023 9:49 AM documented in this encounterSt. Charles Hospital09-04-2024 History of Present illness Narrative* Owen Lopez RN - 12/20/2023 4:19 PM EDT [facility] Telephonic Outreach Provider Action/FYI Contacted for: Routine Telephonic Outreach Contact made with patient: No, unable to leave message. Will reattempt call Owen Lopez RN December 20, 2023 4:19 PM documented in this encounterSt. Charles Hospital08-19-2024 Telephone encounter Note * Telephone Encounter - Ashley King - 12/04/2023 3:52 PM EDT Patient called requesting PCP to review today's OV notes from 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 CNP for a second opinion on plan of care. ASSESSMENT/PLAN: 1. 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 - No concerning findings on exam. - Tolerated aromasin poorly d/t fatigue and crying spells. - Tolerated femara well. - Pt. completed 5 years of AI therapy fall 2020. - Advised pt. to contact PCP re:anxiety. - R mammogram due next month. - Follow up in one year-pending R mammogram. - Pt. aware to call office with any questions/concerns. Patient made aware that an OV with PCP was required to further discuss. Patient is wanting to wait until next scheduled appointment on 02/26/24. [facility]08-19-2024 Miscellaneous Notes* Telephone Encounter - Ashley King - 12/04/2023 3:52 PM EDT Patient called requesting PCP to review today's OV notes from 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 CNP for a second opinion on plan of care. ASSESSMENT/PLAN: 1. 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 - No concerning findings on exam. - Tolerated aromasin poorly d/t fatigue and crying spells. - Tolerated femara well. - Pt. completed 5 years of AI therapy fall 2020. - Advised pt. to contact PCP re:anxiety. - R mammogram due next month. - Follow up in one year-pending R mammogram. - Pt. aware to call office with any questions/concerns. Patient made aware that an OV with PCP was required to further discuss. Patient is wanting to wait until next scheduled appointment on 02/26/24. documented in this encounterSt. Charles Hospital08-19-2024 History of Present illness Narrative* 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 APRN.CNP - 12/04/2023 11:22 AM EDT Chief Complaint Patient presents with: Established Patient HPI: Ica Senia Bradshaw is a 83 year old female who presents here today for follow up breast cancer. Per Dr. Nelson's previous note: H/o was found to have an abnormality in the left breast on a recent screening mammogram. She underwent a left breast, stereotactic mammotome biopsy on 11/24/2015. 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 The ductal carcinoma in situ was noted to be of solid pattern and intermediate nuclear grade and comprised less than 5%the tumor volume. The malignancy was both ER and IA positive (both > 95%, strong) and HER-2 quantified at 1+. The patient then underwent a mastectomy with sentinel lymph node sampling procedure on 12/03/2015. The final pathology demonstrated that within the center portion of the breast there was a 5 mm singlefocus of cancer. Overall grade was 2. Margins were negative. Lymphovascular invasion was not identified. 6 sentinel lymph nodes were removed all were negative for disease. Current therapy:Chloé Began arimidex 12/2015. Changed to aromasin 11/2016. Changed to femara 12/14/18. I get so upset. 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 I'm overwhelmed. Appetite:Good. Wt. down 4#. Energy level:I have it. Denies fevers or recent illness. Resp:denies cough or sob Cardiac:denies chest pain/palpitations GI:denies abd pain, n/v, moving bowels regularly :denies dysuria/hematuria Extrem:chronic L shoulder pain, s/p R shoulder replacement, denies pain today Endo:denies hot flashes Neuro:denies symptoms of neuropathy Skin:denies rashes/lesions Heme:denies bleeding The ROS is otherwise negative. Past medical history, appointments, medications, allergies reviewed. No changes. EXAM: BP 143/70 Pulse (!) 55 Temp 36.4 C (97.5 F) (Temporal) Wt 77.4 kg (170 lb 10.2 oz) BMI 31.81 kg/m APPEARANCE Well appearing/tearful, alert, in no acute distress, well-hydrated, well nourished. HEART RRR with normal S1 and S2, no murmurs LUNG clear to auscultation BREAST FEMALE R no mass/nodule, L mastectomy scar no nodule LYMPH NODES No cervical lymphadenopathy, No supraclavicular lymphadenopathy, and No axillary lymphadenopathy. ABDOMEN bowel sounds normoactive, soft, non-tender EXTREMITIES No edema NEURO Awake, alert and oriented x 3, Normal gait, and No involuntary motions. SKIN Skin color, texture, turgor normal, no suspicious rashes or lesions ASSESSMENT/PLAN: 1. 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 - No concerning findings on exam. - Tolerated aromasin poorly d/t fatigue and crying spells. - Tolerated femara well. - Pt. completed 5 years of AI therapy fall 2020. - Advised pt. to contact PCP re:anxiety. - R mammogram due next month. - Follow up in one year-pending R mammogram. - Pt. aware to call office with any questions/concerns. The patient indicates understanding of these issues and agrees with the plan. All documentation from previous visit of 12/02/22-Dr. Nelson/myself was copied and pasted, documentation has been reviewed and edited as necessary for today's visit. 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 APRN.CNP documented in this encounterSt. [facility]08-[facility] History of Present illness Narrative* Owen Lopez RN - 11/23/2023 2:59 PM EDT [facility] Telephonic Outreach Provider Action/FYI Unable to leave message, no voicemail HTN, depression, breast cancer with mast, + for Covid in June Goal Pt would like to lose 10-15 pounds this year.Stay away from cookies, candies, and bread and will increase activity outside when the weather warms up, check BP at home 12/04/2023 11:30 AM 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 APRN.CNP Hematology/Oncology 1 YR OV/MAMM 01/05/23* Contacted for: Routine Telephonic Outreach Contact made with patient: No, unable to leave message. Will reattempt call Owen Lopez RN November 23, 2023 3:02 PM documented in this encounterSt. [facility]08-[facility] Telephone encounter Note * Telephone Encounter - Laurie Johnson LPN - 11/17/2023 12:50 PM EDT Patient taking 2 at bedtime, please review. [facility] Miscellaneous Notes* Telephone Encounter - Laurie Johnson LPN - 11/17/2023 12:50 PM EDT Patient taking 2 at bedtime, please review. * Telephone Encounter - Amparo Woods - 11/17/2023 12:18 PM EDT Prescription Refill Information The patient has been identified by name and date of : Yes Caregiver verified no other encounters exist for this prescription request: Yes Caregiver confirmed with patient/requestor that no other refills are due, in the near future, with this provider at this time: Yes The last office visit in the department: 08/22/23 Does the patient have a future office visit with this provider/department: Yes Requested Prescriptions Pending Prescriptions Disp Refills sertraline (ZOLOFT) 50 mg tablet 90 tablet 1 Sig: Take 1 tablet PO daily at bedtime x 1 week then increase to 2 tablets PO daily at bedtime Amparo Kinney November 17, 2023 12:18 PM documented in this encounterSt. [facility]08-02-2024 Telephone encounter Note * Telephone Encounter - Amparo Woods - 11/17/2023 12:18 PM EDT Prescription Refill Information The patient has been identified by name and date of : Yes Caregiver verified no other encounters exist for this prescription request: Yes Caregiver confirmed with patient/requestor that no other refills are due, in the near future, with this provider at this time: Yes The last office visit in the department: 08/22/23 Does the patient have a future office visit with this provider/department: Yes Requested Prescriptions Pending Prescriptions Disp Refills sertraline (ZOLOFT) 50 mg tablet 90 tablet 1 Sig: Take 1 tablet PO daily at bedtime x 1 week then increase to 2 tablets PO daily at bedtime Amparo Kinney November 17, 2023 12:[address] [facility] History of Present illness Narrative* Owen Lopez RN - 10/26/2023 11:44 AM EDT CDM Telephonic Outreach Provider Action/FYI Unable to leave message, no vmm HTN, depression, breast cancer with mast, + for Covid in June Goal Pt would like to lose 10-15 pounds this year.Stay away from cookies, candies, and bread and will increase activity outside when the weather warms up, check BP at home 12/04/2023 11:30 AM 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 APRN.MAINTENANCE AND CUSTODIAN SUPERVISOR Hematology/Oncology 1 YR OV/MAMM 01/05/23* Contacted for: Routine Telephonic Outreach Contact made with patient: No, unable to leave message. Will reattempt call Owen Lopez RN October 26, 2023 11:47 AM documented in this encounterSt. [facility]07-05-2024 Telephone encounter Note * Telephone Encounter - Jyoti Santoyo - 10/20/2023 2:45 PM EDT Prescription Refill Information The patient has been identified by name and date of : Yes Caregiver verified no other encounters exist for this prescription request: Yes Caregiver confirmed with patient/requestor that no other refills are due, in the near future, with this provider at this time: Yes The last office visit in the department: 08-22-23 Does the patient have a future office visit with this provider/department: Yes Requested Prescriptions Pending Prescriptions Disp Refills levothyroxine (SYNTHROID) 112 mcg tablet 90 tablet 1 Sig: Take 1 tablet by mouth daily Take on empty stomach. For thyroid. Jyoti Kinney October 20, 2023 2:[address] [facility] Miscellaneous Notes* Telephone Encounter - Jyoti Santoyo - 10/20/2023 2:45 PM EDT Prescription Refill Information The patient has been identified by name and date of : Yes Caregiver verified no other encounters exist for this prescription request: Yes Caregiver confirmed with patient/requestor that no other refills are due, in the near future, with this provider at this time: Yes The last office visit in the department: 08-22-23 Does the patient have a future office visit with this provider/department: Yes Requested Prescriptions Pending Prescriptions Disp Refills levothyroxine (SYNTHROID) 112 mcg tablet 90 tablet 1 Sig: Take 1 tablet by mouth daily Take on empty stomach. For thyroid. Jyoti Kinney October 20, 2023 2:46 PM documented in this encounterSt. [facility]06-26-2024 History of Present illness Narrative* Owen Lopez RN - 10/11/2023 11:47 AM EDT [facility] Telephonic Outreach Provider Scooter/MISBAH LVM HTN, depression, breast cancer with mast, + for Covid in June Goal Pt would like to lose 10-15 pounds this year.Stay away from cookies, candies, and bread and will increase activity outside when the weather warms up, check BP at home Contacted for: Routine Telephonic Outreach Contact made with patient: No, left message. Owen Lopez RN October 11, 2023 11:48 AM documented in this encounterSt. [facility]05-29-2024 History of Present illness Narrative* Owen Lopez RN - 09/13/2023 1:47 PM EDT [facility] Telephonic Outreach Provider Scooter/MISBAH Spoke to pt, pt states she feels fine, just brought home from hospital, had seizure and is now getting speech and physical therapy Pt states she has good support system with family and medical team Offered pt at any time social work to help with additional resources, pt states she is good right now and has everything she needs HTN, depression, breast cancer with mast, + for Leslie in June Goal Pt would like to lose 10-15 pounds this year.Stay away from cookies, candies, and bread and will increase activity outside when the weather warms up, check BP at home Contacted for: Routine Telephonic Outreach Contact made with patient: Yes Patient identified by name and date of . Discussed care with patient Are you experiencing any new or worsening symptoms you need to talk about today? No Disease Specific Do you check your blood pressure at home? No pt states BP was good at last PCP appt 130/80 Do you have new or worsening shortness of breath with activity? No Do you feel like you are dehydrated for any reason, including not being able to eat or drink normally, or having less urine/much darker urine than normal for you? No Do you check your daily weight at home? No Based on fairing worker, the following disposition is advised: No symptoms or symptoms present, not severe. Routed to: No Action Needed ABNER Education Provided this Outreach: No Owen Lopez RN September 13, 2023 1:53 PM documented in this encounterSt. [facility]05-29-2024 Telephone encounter Note * Telephone Encounter - Tiarra Adler - 09/13/2023 11:44 AM EDT Patient has been identified by name and date of : Yes Patient phones for refill(s): Requested Prescriptions Pending Prescriptions Disp Refills metoprolol tartrate, short acting, (LOPRESSOR) 50 mg tablet 180 tablet 3 Sig: Take 1 tablet by mouth two times a day. Date of last office visit in primary care: 08/22/2023 Date of next office visit in primary care: 02/26/2024 Please advise. Thank you. Tiarra Adler. [facility] Miscellaneous Notes* Telephone Encounter - Tiarra Adler - 09/13/2023 11:44 AM EDT Patient has been identified by name and date of : Yes Patient phones for refill(s): Requested Prescriptions Pending Prescriptions Disp Refills metoprolol tartrate, short acting, (LOPRESSOR) 50 mg tablet 180 tablet 3 Sig: Take 1 tablet by mouth two times a day. Date of last office visit in primary care: 08/22/2023 Date of next office visit in primary care: 02/26/2024 Please advise. Thank you. Tiarra Adler. documented in this encounterSt. [facility]05-08-2024 Telephone encounter Note * Telephone Encounter - Randy Aguilera LPN - 08/23/2023 6:19 PM EDT Pt. informed. [facility] Miscellaneous Notes* Telephone Encounter - Randy Geiger LPN - 08/23/2023 6:19 PM EDT Pt. informed. * Telephone Encounter - Ayesha Tran APRN.CNP - 08/23/2023 6:13 PM EDT Please call patient and let her know that lab work results all look great and stable. No concerns or abnormalities. Thank you, Ayesha Tran APRN.CNP documented in this encounterSt. [facility] Hospital05-08-2024 Telephone encounter Note * Telephone Encounter - Ayesha Tran APRN.CNP - 08/23/2023 6:13 PM EDT Please call patient and let her know that lab work results all look great and stable. No concerns or abnormalities. Thank you, Ayesha Tran APRN.MAINTENANCE AND CUSTODIAN SUPERVISOR [facility] History of Present illness Narrative* Vini Sparks, DO - 08/22/2023 10:47 AM EDT CC: Harjit Bradshaw is a 83 year old female who presents to the office for follow up HPI: HPL, had recent fasting labs Mood, overall doing great, feels her depressed mood an anxiety symptoms are much better. No SI or HI concerns. Feels it has improved since getting off alcohol and now has been sober longer/months of time. She now just has a few stressors with her husbands health but feels she is overall managing this. Arthritis, stable, trying to do more exercises [...] SHOULDER Left 01/09/2019 Dr. David Nieto @ [facility]; L reverse total shoulder replacement; L distal clavicle resection ARTHRP KNE CONDYLE&PLATU MEDIAL&LAT COMPARTMENTS 2009 Knee replacement, total, bilateral BX BREAST W/DEVICE [...] 1 tablet by mouth daily at bedtime. metoprolol tartrate, short acting, (LOPRESSOR) 50 mg tablet Take 1 tablet by mouth twice daily. Blood Pressure Test Kit-Large 1 Each [...] Never Smokeless tobacco: Never Vaping Use Vaping Use: Never used Substance Use Topics Alcohol use: Not Currently Comment: couple times a week Drug use: No ROS: See HPI PE: BP 130/80 Pulse 60 Temp (Src) 97.2 (Left Tympanic) Resp 16 Wt 173 lb (78.5kg) Gen: A&OX3, NAD, non-toxic appearing, hard of hearing, wearing glasses, pleasant, well dressed HEENT: PERRLA, EOMs intact b/l, nares without drainage, pharynx without erythema, exudate, lesions,or drainage. Uvula midline. Neck: No LAD, no thyromegaly, no meningismus. CV: RRR, no murmur, normal s1s2 Lungs: CTA b/l, no wheezing Skin: No rashes, lesions, or wounds on exposed skin. No edema, normal pulses ASSESSMENT/PLAN: 1. Dyslipidemia - ICD9: 272.4, ICD10: E78.5 (primary diagnosis) - Control undetermined, due for labs - Continue current medications - Counseled on healthy diet and regular exercise - Discussed need for and benefit of weight loss. BMI 32.25 kg/(m^2) - LIPID PANEL BASIC 2. Dysthymia - ICD9: 300.4, ICD10: F34.1 Stable/improved, continue same medication Start on exercise routine 3. Essential hypertension, benign - ICD9: 401.1, ICD10: I10 - Controlled - Continue current medications - Recommend home blood pressure monitoring, to bring results to next visit - Encouraged sodium restriction, DASH or Mediterranean diet - Recommend regular aerobic exercise 4. Hypothyroidism, acquired - ICD9: 244.9, ICD10: E03.9 - Instructed patient on importance of taking on an empty stomach either first thing in the morning or at bedtime. - COMPREHENSIVE METABOLIC PANEL - COMPLETE BLOOD COUNT AND DIFFERENTIAL - THYROID STIMULATING HORMONE - T4 FREE/FREE THYROXINE 5. Vitamin D deficiency - ICD9: 268.9, ICD10: E55.9 Continue supplement - VITAMIN D 25 HYDROXY 6. Vitamin B12 deficiency - ICD9: 266.2, ICD10: E53.8 Continue supplement - VITAMIN B12 7. Hyperglycemia - ICD9: 790.29, ICD10: R73.9 Recheck labs - HEMOGLOBIN A1C 8. Depression, recurrent (HCC) - ICD9: 296.30, ICD10: F33.9 Stable/improved, continue same medication Start on exercise routine 9. Personal history of alcoholism (HCC) - ICD9: V11.3, ICD10: F10.21 Stable/improved, continue same medication Start on exercise routine 10. 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 in female, estrogen receptor positive (HCC) - ICD9: 174.1, V86.0, ICD10: C50.112, Z17.0 Hx of Vini Sparks DO Return if no improvement. Follow up with Vini Sparks DO. To ER if develops chest pain, shortness of breath. Discussed risks, benefits, alternatives, and potential side effects of medications. Patient/Guardian expressed understanding and agreed with the plan. See patient instructions. Vini Sparks DO [address] [place] [address] agdaagux documented in this encounterSt. Charles Hospital05-01-2024 History of Present illness Narrative* Owen Lopez RN - 08/16/2023 12:13 PM EDT CDM Telephonic Outreach Provider Action/FYI Unable to leave message, no voicemail HTN, depression, breast cancer with mast, + for Covid in June Goal Pt would like to lose 10-15 pounds this year.Stay away from cookies, candies, and bread and will increase activity outside when the weather warms up, check BP at home 08/21 PCP appt Contacted for: Routine Telephonic Outreach Contacted for: Routine Telephonic Outreach Contact made with patient: No, unable to leave message. Will reattempt call Owen Lopez RN August 16, 2023 12:15 PM documented in this encounterSt. Charles Hospital04-17-2024 Miscellaneous Notes* Telephone Encounter - Jodie Dupont LPN - 08/02/2023 1:18 PM EDT Patient has been identified by name and date of : Yes, Provider Dr. Sparks Date 08/02/23 Time 1:19 Patient phones for refill(s): Requested Prescriptions Pending Prescriptions Disp Refills amLODIPine (NORVASC) 5 mg tablet 90 tablet 1 Sig: Take 1 tablet by mouth once daily. sertraline (ZOLOFT) 50 mg tablet 90 tablet 1 Sig: Take 1 tablet PO daily at bedtime x 1 week then increase to 2 tablets PO daily at bedtime Date of last office visit in primary care: 02/21/2023 Date of next office visit in primary care: 08/22/2023 Please advise. Thank you. Jodie Dupont LPN. * Telephone Encounter - María Elena Brown - 08/02/2023 1:02 PM EDT Patient has been identified by name and date of : Patient phones for refill(s): Requested Prescriptions Pending Prescriptions Disp Refills amLODIPine (NORVASC) 5 mg tablet 90 tablet 1 Sig: Take 1 tablet by mouth once daily. sertraline (ZOLOFT) 50 mg tablet 90 tablet 1 Sig: Take 1 tablet PO daily at bedtime x 1 week then increase to 2 tablets PO daily at bedtime Date of last office visit in primary care: 02/21/2023 Date of next office visit in primary care: 08/22/2023 Please advise. Thank you. María Elena Brown. documented in this encounterSt. Charles Hospital04-17-2024 History of Present illness Narrative* Owen Lopez, RN - 08/02/2023 12:36 PM EDT CDM Telephonic Outreach Provider Action/FYI LVM HTN, depression, breast cancer with mast, + for Covid in June 19 PCP appt Goal Pt would like to lose 10-15 pounds this year.Stay away from cookies, candies, and bread and will increase activity outside when the weather warms up, check BP at home Contacted for: Routine Telephonic Outreach Contact made with patient: No, left message. Owen Lopez RN August 02, 2023 12:37 PM documented in this encounterSt. [facility] Hospital03-20-2024 History of Present illness Narrative* Owen Lopez RN - 07/05/2023 11:36 AM EDT CDM Telephonic Outreach Provider Action/ROSINAI LVM HTN, depression, breast cancer with mast 08/21 PCP appt Contacted for: Routine Telephonic Outreach Contact made with patient: No, left message. Owen Lopez RN July 05, 2023 11:40 AM documented in this encounterSt. Charles Hospital03-15-2024 Miscellaneous Notes* Telephone Encounter - Zita Capps MA - 06/30/2023 8:30 AM EDT Patient notified of results and recommendations as listed below, verbalized understanding. Zita Capps MA * Telephone Encounter - Gray Cooper APRN.MARYANA - 06/30/2023 7:11 AM EDT Please notify patient positive for covid. Is past treatment window. Treat with otc cold/flu medication. F/u for new or worsening s/s. documented in this encounterSt. Charles Hospital03-14-2024 History of Present illness Narrative* Patience Winter APRN.CNP - 06/29/2023 11:56 AM EDT Subjective Cough Pertinent negatives include no chest pain, no chills, no ear pain, no sore throat, no myalgias and no shortness of breath. Harjit Bradshaw is a 82 year old female who presents with possible COVID. Her was in the hospital on Monday with COVID. He is home now. Harjit has had a cough for the past week. States she feels better now. Her kids wanted her to come get checked. Review of Systems Constitutional: Negative for chills and fever. HENT: Positive for congestion. Negative for ear pain and sore throat. Respiratory: Positive for cough. Negative for shortness of breath. Cardiovascular: Negative for chest pain. Musculoskeletal: Negative for myalgias. BP 128/72 Pulse 63 Temp 36.6 C (97.9 F) (Left Tympanic) Resp 16 Wt 78.2 kg (172 lb 6.4 oz) SpO2 96% BMI 32.13 kg/m PAST MEDICAL HISTORY Diagnosis Date Anxiety Bilateral [...] SHOULDER Left 01/09/2019 Dr. David Nieto @ [facility]; L reverse total shoulder replacement; L distal clavicle resection ARTHRP KNE CONDYLE&PLATU MEDIAL&LAT COMPARTMENTS 2008 Knee replacement, total, bilateral BX BREAST W/DEVICE 1ST LESION STEREOTACTIC GUID Left 11/24/2015 BX/EXC LYMPH NODE OPEN DEEP AXILLARY NODE Left 12/07/2015 CHOLECYSTECTOMY Cholecystectomy INJ RADIOACTIVE TRACER FOR ID OF SENTINEL NODE 12/07/2015 MASTECTOMY, SIMPLE, COMPLETE Left 12/07/2015 TONSILLECTOMY HX ALLERGIES Morphine MEDICATIONS sertraline (ZOLOFT) 50 mg tablet Take 1 [...] 1 tablet by mouth daily at bedtime. amLODIPine (NORVASC) 5 mg tablet take 1 tablet by mouth once daily. Blood Pressure Test Kit-Large 1 Each once daily. vitamin b complex tab Take 1 tablet by mouth once daily. calcium carbonate/vitamin D3 (CALCIUM 600 + D,3, ORAL) Take 1 tablet by mouth once daily. metoprolol tartrate, short acting, (LOPRESSOR) 50 mg tablet Take 1 tablet by mouth twice daily. FAMILY HISTORY Problem Relation Age of Onset Cancer Mother ? no details, 85 Coronary Artery Disease Father [place], 94 Cancer Sister 57 liver Cancer Brother 50 Acute leukemia Cancer Brother Unknown type of cancer Cancer Brother ?Lung--Unknown type of cancer Cancer Sister 70 Breast cancer Cancer Sister lung Cancer Sister Rheumatologic disease Sister Cancer Brother lung COPD Brother Heart Brother Social History Tobacco Use Smoking status: Never Smokeless tobacco: Never Vaping Use Vaping Use: Never used Substance Use Topics Alcohol use: Not Currently Comment: couple times a week Drug use: No Objective Physical Exam Vitals and nursing note reviewed. Constitutional: Appearance: Normal appearance. HENT: Mouth/Throat: Mouth: Mucous membranes are moist. Pharynx: Oropharynx is clear. Cardiovascular: Rate and Rhythm: Normal rate and regular rhythm. Heart sounds: Normal heart sounds. Pulmonary: Effort: Pulmonary effort is normal. No respiratory distress. Breath sounds: Normal breath sounds. No wheezing or rales. Neurological: Mental Status: She is alert. ASSESSMENT/PLAN: 1. Viral URI with cough - ICD9: 465.9, ICD10: J06.9 (primary diagnosis) - Discussed viral etiology and rationale for treatment. - Symptomatic treatment with prn analgesia - Supportive care with fluids and rest - COVID NAAT, UPPER RESPIRATORY, ROUTINE 2. Exposure to COVID-19 virus - ICD9: V01.79, ICD10: Z20.822 - COVID NAAT, UPPER RESPIRATORY, ROUTINE - Follow-up with your PCP in 3-5 days if symptoms have not improved or sooner if symptoms worsen - Discussed red flags and need for immediate medical evaluation if any occur. - Discussed supportive care treatment with fluids, rest and analgesia. - Discussed expected course of illness Patience Winter APRN.MARYANA documented in this encounterSt. Charles Hospital03-14-2024 Instructions* Patient Instructions* Patience Winter APRN.CNP - 06/29/2023 11:54 AM EDT ASSESSMENT/PLAN: 1. Viral URI with cough - ICD9: 465.9, ICD10: J06.9 (primary diagnosis) - Discussed viral etiology and rationale for treatment. - Symptomatic treatment with prn analgesia - Supportive care with fluids and rest - COVID NAAT, UPPER RESPIRATORY, ROUTINE 2. Exposure to COVID-19 virus - ICD9: V01.79, ICD10: Z20.822 - COVID NAAT, UPPER RESPIRATORY, ROUTINE - Follow-up with your PCP in 3-5 days if symptoms have not improved or sooner if symptoms worsen - Discussed red flags and need for immediate medical evaluation if any occur. - Discussed supportive care treatment with fluids, rest and analgesia. - Discussed expected course of illness Patience Winter APRN.MARYANA documented in this encounterSt. Charles Hospital02-06-2024 History of Present illness Narrative* Owen Lopez RN - 05/23/2023 2:15 PM EST [facility] Telephonic Outreach Provider Action/FYI Pt goal, adls and falls risk reviewed and updated Contacted for: Goals/Falls/ADL Update Contact made with patient: Yes Patient identified by name and date of . Discussed care with: patient Goal Setting I would like to take some time today to discuss your personal health goals. Yes, patient has goals. Capture the goal the patient wants to accomplish: To lose 10-15 pounds and monitor BP at home. Does the goal align with programs offered at the [facility]? Yes Chronic Disease Management patient goals yes: Weight loss Most people know what to do to become healthier, yet struggle to put it into action on their own, It can be hard to maintain a healthy lifestyle, especially when life is so stressful. Can we connect you with a [facility] Guide Dog Instructor to find a program that could help you meet your goals? No Falls completed:Yes ADL's updated: Yes Are you experiencing any new or worsening symptoms you need to talk about today? No * Owen Lopez RN - 05/23/2023 2:05 PM EST CDM Telephonic Outreach Provider Scooter/MISBAH Spoke to pt, no CDM issues or concerns HTN, depression, breast cancer with mast 08/21 PCP appt Contacted for: Routine Telephonic Outreach Contact made with patient: Yes Patient identified by name and date of . Discussed care with patient Are you experiencing any new or worsening symptoms you need to talk about today? No Disease Specific Do you check your blood pressure at home? Yes, Enter readings: 134/72 Do you have new or worsening shortness of breath with activity? No Based on fairing worker, the following disposition is advised: No symptoms or symptoms present, not severe. Routed to: No Action Needed ABNER Education Provided this Outreach: No Owen Lopez RN May 23, 2023 2:13 PM documented in this encounterSt. Charles Hospital12-05-2023 History of Present illness Narrative* Owen Lopez RN - 03/21/2023 1:21 PM EST CD Telephonic Outreach Provider Scooter/MISBAH LVM HTN, depression, breast cancer with mast Contacted for: Routine Telephonic Outreach Contact made with patient: No, left message. Owen Lopez RN March 21, 2023 1:25 PM documented in this encounterSt. Charles Hospital12-04-2023 Miscellaneous Notes* Telephone Encounter - Katlin Sandoval MA - 03/20/2023 9:52 AM EST Patient has been identified by name and date of : Yes Requested Prescriptions Pending Prescriptions Disp Refills pravastatin (PRAVACHOL) 40 mg tablet [Pharmacy Med Name: pravastatin 40 mg tablet] 90 tablet 3 Sig: Take 1 tablet by mouth daily at bedtime. RX INSTRUCTIONS: Patient aware RX will be sent to pharmacy. No need to notify patient. Katlin Sandoval MA Janine 02/2023 Nov 08/2023 Last refill: 02/2022 documented in this encounterSt. [facility] Hospital11-01-2023 Miscellaneous Notes* Telephone Encounter - Karlene Rahman LPN - 02/15/2023 11:23 AM EDT Will fax. Karlene Rahman LPN * Telephone Encounter - 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 APRN.CNP - 02/15/2023 10:57 AM EDT Printed. Thank you. 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 APRN.MARYANA * Telephone Encounter - Karlene Rahman LPN - 02/15/2023 9:34 AM EDT Per AYLEEN Strong for printed RX. Insurance allows for 3 bras with 3 refills, prosthetic x 1. Karlene Rahman LPN * Telephone Encounter - 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 APRN.CNP - 02/15/2023 8:13 AM EDT 3 bras? 1 prosthesis? Do they have a form they want me to sign or do they want me to do scripts for each? Thank you. 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 APRN.MARYANA * Telephone Encounter - Kirsten Wagner - 02/14/2023 4:36 PM EDT Ligia- over my head toni at the [facility] calling asking for prescription for pt Mastectomy bras and breast prosthetics. Stated pt needs 3 more [phone] Please assist documented in this encounterSt. Charles Hospital10-24-2023 Miscellaneous Notes* Telephone Encounter - Laurie Johnson LPN - 02/07/2023 10:18 AM EDT Patient has been identified by name and date of : Yes Patient phones for refill(s): Requested Prescriptions Pending Prescriptions Disp Refills amLODIPine (NORVASC) 5 mg tablet [Pharmacy Med Name: amlodipine 5 mg tablet] 90 tablet 1 Sig: take 1 tablet by mouth once daily. Date of last office visit in primary care: 08/15/2022 Date of next office visit in primary care: 02/21/2023 Please advise. Thank you. Laurie Johnson LPN. documented in this encounterSt. Charles Hospital10-18-2023 Miscellaneous Notes* Telephone Encounter - Randy Aburto - 02/01/2023 9:42 AM EDT Patient has been identified by name and date of : Yes Requested Prescriptions Pending Prescriptions Disp Refills losartan (COZAAR) 50 mg tablet 30 tablet 1 Sig: Take 1 tablet by mouth once daily. RX INSTRUCTIONS: Patient aware RX will be sent to pharmacy. No need to notify patient. Randy Kinney documented in this encounterSt. Charles Hospital10-17-2023 History of Present illness Narrative* Owen Lopez RN - 01/31/2023 1:50 PM EDT CDM Telephonic Outreach Provider Action/FYI Fasting labs prior to PCP appt LVM HTN, depression, breast cancer with mast 02/21 PCP appt Contacted for: Routine Telephonic Outreach Contact made with patient: No, left message. Owen Lopez RN January 31, 2023 1:52 PM documented in this encounterSt. Charles Hospital09-26-2023 Miscellaneous Notes* Telephone Encounter - Lexy Garcia - 01/10/2023 7:32 AM EDT Patient given results and verbalized understanding of instructions given. Lexy Garcia * Telephone Encounter - Lexy Garcia - 01/10/2023 7:32 AM EDT ----- Message from Patience Winter APRN.MAINTENANCE AND CUSTODIAN SUPERVISOR sent at 01/10/2023 7:23 AM EDT ----- Please advise patient the COVID test was negative. documented in this encounterSt. Charles Hospital09-25-2023 History of Present illness Narrative* Grace Ramirez RT(R) - 01/09/2023 11:20 AM EDT Radiology Service Progress Note PATIENT NAME: Harjit Bradshaw DATE OF SERVICE: January 09, 2023 TIME: 11:19 AM PATIENT IDENTITY VERIFICATION COMPLETED USING TWO (2) IDENTIFIERS: Name and Date of confirmedby patient verbally. FALL SCREENING: Has the patient had 2 falls in the last year or 1 fall with injury or currently using an Ambulatory Assistive Device (Walker, Cane, Wheelchair, Crutches, etc.)? No PATIENT GENDER DATA: Female. status: : No status: NO. PATIENT RELEVANT IMPLANT DATA REVIEWED: Yes RADIOLOGY DEPARTMENT: General X-ray: Exam(s) Completed: Chest X-Ray PERIPHERAL IV DATA: Not applicable SIGNED BY: RT Julián(R) January 09, 2023 11:19 AM documented in this encounterSt. Charles Hospital09-22-2023 Miscellaneous Notes* Telephone Encounter - Fabiana De Los Santos LPN - 01/06/2023 4:32 PM EDT Patient notified. Fabiana De Los Santos LPN * Telephone Encounter - 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 APRN.CNP - 01/06/2023 2:33 PM EDT Please inform pt. that her mammogram looks good. Follow up as scheduled. Thank you. 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 APRN.MAINTENANCE AND CUSTODIAN SUPERVISOR documented in this encounterSt. Charles Hospital09-22-2023 Miscellaneous Notes* Telephone Encounter - Jodie Dupont LPN - 01/06/2023 10:33 AM EDT Janine--08/15/22 Nov--02/21/23 Last refill--10/04/22 90 with 1 refill Last labs--08/15/22 * Telephone Encounter - Rama Lang - 01/06/2023 9:52 AM EDT Patient has been identified by name and date of : Yes Last office visit in this department: 08/15/2022 RX INSTRUCTIONS: Patient aware RX will be sent to pharmacy. No need to notify patient. Patient phones requesting refills as follows: Requested Prescriptions Pending Prescriptions Disp Refills sertraline (ZOLOFT) 50 mg tablet 90 tablet 1 Sig: Take 1 tablet PO daily at bedtime x 1 week then increase to 2 tablets PO daily at bedtime Please review and advise. Rama Kinney documented in this encounterSt. Charles Hospital09-21-2023 History of Present illness Narrative* Kiya Dos Santos RT(R) - 01/05/2023 11:30 AM EDT Radiology Service Progress Note PATIENT NAME: Harjit Bradshaw DATE OF SERVICE: January 05, 2023 TIME: 11:01 AM PATIENT IDENTITY VERIFICATION COMPLETED USING TWO (2) IDENTIFIERS: Name and Date of confirmedby patient verbally. FALL SCREENING: Has the patient had 2 falls in the last year or 1 fall with injury or currently using an Ambulatory Assistive Device (Walker, Cane, Wheelchair, Crutches, etc.)? No PATIENT GENDER DATA: Female. status: : No status: NO. PATIENT RELEVANT IMPLANT DATA REVIEWED: Not Applicable RADIOLOGY DEPARTMENT: Mammography PERIPHERAL IV DATA: Not applicable SIGNED BY: RT Allen(R) January 05, 2023 11:01 AM documented in this encounterSt. Charles Hospital09-19-2023 History of Present illness Narrative* Owen Lopez RN - 01/03/2023 1:36 PM EDT CDM Telephonic Outreach Provider Action/MISBAH DURON HTN breast cancer depression 921 mammogram 02/21 PCP f/u Contacted for: Routine Telephonic Outreach Contact made with patient: No, left message. Owen Lopez RN January 03, 2023 1:44 PM documented in this encounterSt. Charles Hospital08-22-2023 History of Present illness Narrative* Owen Lopez RN - 12/06/2022 2:57 PM EDT CDM Telephonic Outreach Provider Action/FYI LVM HTN breast cancer depression 02/15 PCP f/u Contacted for: Routine Telephonic Outreach Contact made with patient: No, left message. Owen Lopez RN December 06, 2022 2:59 PM documented in this encounterSt. Charles Hospital08-21-2023 Miscellaneous Notes* Telephone Encounter - Tiarra Adler - 12/05/2022 3:31 PM EDT Patient has been identified by name and date of : Yes Requested Prescriptions Pending Prescriptions Disp Refills losartan (COZAAR) 50 mg tablet 30 tablet 1 Sig: Take 1 tablet by mouth once daily. RX INSTRUCTIONS: Patient aware RX will be sent to pharmacy. No need to notify patient. Tiarra Adler documented in this encounterSt. Charles Hospital08-18-2023 History of Present illness Narrative* 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 APRN.MARYANA - 12/02/2022 11:17 AM EDT Chief Complaint Patient presents with: Established Patient HPI: Harjit Bradshaw is a 82 year old female who presents here today for follow up breast cancer. Per Dr. Nelson's previous note: H/o was found to have an abnormality in the left breast on a recent screening mammogram. She underwent a left breast, stereotactic mammotome biopsy on 11/24/2015. 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 The ductal carcinoma in situ was noted to be of solid pattern and intermediate nuclear grade and comprised less than 5%the tumor volume. The malignancy was both ER and IA positive (both > 95%, strong) and HER-2 quantified at 1+. The patient then underwent a mastectomy with sentinel lymph node sampling procedure on 12/03/2015. The final pathology demonstrated that within the center portion of the breast there was a 5 mm singlefocus of cancer. Overall grade was 2. Margins were negative. Lymphovascular invasion was not identified. 6 sentinel lymph nodes were removed all were negative for disease. Current therapy:Chloé Began arimidex 12/2015. Changed to aromasin 11/2016. Changed to femara 12/14/18. No new concerns today. Appetite:Too good. Wt. stable. Energy level:I don't have much. Denies fevers or recent illness. Resp:denies cough or sob Cardiac:denies chest pain/palpitations GI:denies abd pain, n/v, moving bowels regularly-occ. loose stools since increasing dose of zoloft :denies dysuria/hematuria Extrem:chronic L shoulder pain, s/p R shoulder replacement, denies pain today Endo:hot flashes I sweat. does not wake pt. at night Neuro:denies symptoms of neuropathy Skin:denies rashes/lesions Heme:denies bleeding The ROS is otherwise negative. Past medical history, appointments, medications, allergies reviewed. No changes. EXAM: BP 128/67 Pulse (!) 59 Temp 36.7 C (98.1 F) Ht 156 cm (5' 1.42) Wt 78.9 kg (174 lb) NpG127% BMI 32.43 kg/m APPEARANCE Well appearing, alert, in no acute distress, well-hydrated, well nourished. HEART RRR with normal S1 and S2, no murmurs LUNG clear to auscultation BREAST FEMALE R no mass/nodule, L mastectomy scar no nodule LYMPH NODES No cervical lymphadenopathy, No supraclavicular lymphadenopathy, and No axillary lymphadenopathy. ABDOMEN bowel sounds normoactive, soft, non-tender EXTREMITIES No edema NEURO Awake, alert and oriented x 3, Normal gait, and No involuntary motions. SKIN Skin color, texture, turgor normal, no suspicious rashes or lesions ASSESSMENT/PLAN: 1. 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 - No concerning findings on exam. - Tolerated aromasin poorly d/t fatigue and crying spells. - Tolerated femara well. - Pt. completed 5 years of AI therapy fall 2020. - Pt. will follow up with PCP to discuss zoloft s/e. - R mammogram due next month. - Follow up in one year-pending R mammogram. - Pt. aware to call office with any questions/concerns. The patient indicates understanding of these issues and agrees with the plan. All documentation from previous visit of 12/02/21-Dr. Nelson/myself was copied and pasted, documentation has been reviewed and edited as necessary for today's visit. 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 APRN.MAINTENANCE AND CUSTODIAN SUPERVISOR documented in this encounterSt. Charles Hospital07-28-2023 History of Present illness Narrative* Owen Lopez RN - 11/11/2022 2:09 PM EDT CDM Telephonic Outreach Provider Scooter/MISBAH Spoke to pt, no CDM issues or concerns HTN breast cancer 12/02 Ferdinand/oncology appt Contacted for: Routine Telephonic Outreach Contact made with patient: Yes Patient identified by name and date of . Discussed care with patient Are you experiencing any new or worsening symptoms you need to talk about today? No Disease Specific Do you check your blood pressure at home? Yes, Enter readings: 132/74 Do you have new or worsening shortness of breath with activity? No Do you feel like you are dehydrated for any reason, including not being able to eat or drink normally, or having less urine/much darker urine than normal for you? No Do you check your daily weight at home? No Based on fairing worker, the following disposition is advised: No symptoms or symptoms present, not severe. Routed to: No Action Needed ABNER Education Provided this Outreach: No Owen Lopez RN November 11, 2022 2:19 PM documented in this encounterSt. Charles Hospital06-30-2023 History of Present illness Narrative* Owen Lopez RN - 10/14/2022 2:00 PM EDT CDM Telephonic Outreach Provider Scooter/MISBAH LVM HTN depression Contacted for: Routine Telephonic Outreach Contact made with patient: No, left message. Owen Lopez RN October 14, 2022 2:02 PM documented in this encounterSt. Charles Hospital06-20-2023 Miscellaneous Notes* Telephone Encounter - Irasema Henry Ma - 10/04/2022 10:17 AM EDT Last office visit: 08/15/22 F/u scheduled: 02/15/23 Irasema Henry Ma * Telephone Encounter - Amparo Brown Pss - 10/04/2022 10:14 AM EDT Patient has been identified by name and date of : Yes Requested Prescriptions Pending Prescriptions Disp Refills sertraline (ZOLOFT) 50 mg tablet 90 tablet 1 Sig: Take 1 tablet PO daily at bedtime x 1 week then increase to 2 tablets PO daily at bedtime amLODIPine (NORVASC) 5 mg tablet 90 tablet 1 Sig: Take 1 tablet by mouth once daily. levothyroxine (LEVOXYL) 112 mcg tablet 90 tablet 1 Sig: Take 1 tablet by mouth daily Take on empty stomach. For thyroid. RX INSTRUCTIONS: Patient aware RX will be sent to pharmacy. No need to notify patient. Amparo Brown Pss documented in this encounterSt. Charles Hospital06-14-2023 Miscellaneous Notes* Telephone Encounter - Silvia Aviles - 09/28/2022 10:02 AM EDT Patient has been identified by name and date of : Yes Requested Prescriptions Pending Prescriptions Disp Refills losartan (COZAAR) 50 mg tablet 30 tablet 1 Sig: Take 1 tablet by mouth once daily. JANINE-08/15/22 Labs-08/15/22 NOV-02/15/23 RX INSTRUCTIONS: Patient aware RX will be sent to pharmacy. No need to notify patient. Silvia Aviles documented in this encounterSt. Charles Hospital06-01-2023 History of Present illness Narrative* Owen Lopez RN - 09/15/2022 11:31 AM EDT CDM Telephonic Outreach Provider Action/FYI LVM HTN depression Contacted for: Routine Telephonic Outreach Contact made with patient: No, left message. Owen Lopez RN September 15, 2022 11:32 AM documented in this encounterSt. Charles Hospital05-04-2023 History of Present illness Narrative* Owen Lopez RN - 08/18/2022 9:30 AM EDT Care Coordination Deferred Outreach Provider Action / FYI: Pt seen by PCP in office on 08/15 therefore outreach deferred Deferred outreach to patient at this time due to: Visit with provider today Next Outreach date: 09/15/22 Owen Lopez RN August 18, 2022 9:30 AM documented in this encounterSt. Charles Hospital05-03-2023 Miscellaneous Notes* Telephone Encounter - Shayla Jessica RN - 2022 4:26 PM EDT Patient returned call and given provider's message below with verbalized understanding. * Telephone Encounter - Sadie Medina LPN - 2022 12:44 PM EDT LEFT MESSAGE FOR PATIENT TO CALL OFFICE. * Telephone Encounter - Vini Sparks DO - 08/16/2022 5:16 PM EDT Please inform patient that her labs are stable Vini Sparks DO documented in this encounterSt. Charles Hospital05-01-2023 Miscellaneous Notes* Addendum Note - Vini Sparks DO - 08/15/2022 11:59 AM EDTAddended by: VINI SPARKS on: 08/15/2022 11:59 AM Modules accepted: Orders documented in this encounterSt. Charles Hospital05-01-2023 History of Present illness Narrative* Vini Sparks DO - 08/15/2022 11:43 AM EDT CC: Harjit Bradshaw is a 81 year old female who presents to the office for follow up HPI: Mood, overall doing great, feels her depressed mood an anxiety symptoms are much better. No SI or HI concerns. Feels it has improved since getting off alcohol and now has been sober longer/months of time. Hypothyroidism, taking her levothyroxine hormone medication, no concerns. Willing to have repeat labs. HPL, willing to have fasting labs upcoming Arthritis, stable, trying to do more exercises at home to help with her strength and balance. PAST MEDICAL HISTORY Diagnosis Date Anxiety Bilateral [...] SHOULDER Left 01/09/2019 Dr. David Nieto @ [facility]; L reverse total shoulder replacement; L distal clavicle resection ARTHRP KNE CONDYLE&PLATU MEDIAL&LAT COMPARTMENTS 2009 Knee replacement, total, bilateral BX BREAST W/DEVICE 1ST LESION STEREOTACTIC GUID Left 11/24/2015 BX/EXC LYMPH NODE OPEN DEEP AXILLARY NODE Left 12/07/2015 CHOLECYSTECTOMY Cholecystectomy INJ RADIOACTIVE TRACER FOR ID OF SENTINEL NODE 12/07/2015 MASTECTOMY, SIMPLE, COMPLETE Left 12/07/2015 TONSILLECTOMY HX Social History: Social History Tobacco Use Smoking status: Never Smokeless tobacco: Never Vaping Use Vaping Use: Never used Substance Use Topics Alcohol use: Not Currently Comment: couple times a week Drug use: No FAMILY HISTORY Problem Relation Age of Onset Cancer Mother ? no details, 85 Coronary Artery Disease Father [place], 94 Cancer Sister 57 liver Cancer Brother 50 Acute leukemia Cancer Brother Unknown type of cancer Cancer Brother ?Lung--Unknown type of cancer Cancer Sister 70 Breast cancer Cancer Sister lung Cancer Sister Rheumatologic disease Sister Cancer Brother lung COPD Brother Heart Brother Current Outpatient prescriptions: metoprolol tartrate, short acting, (LOPRESSOR) 50 mg tablet Take 1 tablet by mouth twice daily. losartan (COZAAR) 50 mg tablet Take 1 tablet by mouth once daily. sertraline (ZOLOFT) 50 mg tablet Take 1 tablet PO daily at bedtime x 1 week then increase to 2 tablets PO daily at bedtime amLODIPine (NORVASC) 5 mg tablet Take 1 tablet by mouth once daily. levothyroxine (LEVOXYL) 112 mcg tablet Take 1 tablet by mouth daily Take on empty stomach. For thyroid. pravastatin (PRAVACHOL) 40 mg tablet Take 1 tablet by mouth daily at bedtime. Blood Pressure Test Kit-Large 1 Each once daily. vitamin b complex tab Take 1 tablet by mouth once daily. calcium carbonate/vitamin D3 (CALCIUM 600 + D,3, ORAL) Take 1 tablet by mouth once daily. Allergies: ALLERGIES Allergen Reactions Morphine Mental Status Change, Intolerance, GI Upset ROS: See HPI PE: 08/15/22 1041 BP: 132/84 Pulse: (!) 56 Resp: 20 Temp: (!) 35.9 C (96.6 F) TempSrc: Left Tympanic Weight: 78.5 kg (173 lb) Gen: A&OX3, NAD, non-toxic appearing, hard of hearing, wearing glasses, pleasant, well dressed HEENT: PERRLA, EOMs intact b/l, nares without drainage, pharynx without erythema, exudate, lesions,or drainage. Uvula midline. Neck: No LAD, no thyromegaly, no meningismus. CV: RRR, no murmur, normal s1s2 Lungs: CTA b/l, no wheezing Skin: No rashes, lesions, or wounds on exposed skin. No edema, normal pulses ASSESSMENT/PLAN: 1. Essential hypertension, benign - ICD9: 401.1, ICD10: I10 (primary diagnosis) - good control - Continue current medication(s) - Encouraged dietary sodium restriction/DASH diet - Recommended regular aerobic exercise. - Recommend home blood pressure monitoring, to bring results in on next visit - Goal of BP <130/80 - COMP METABOLIC PANEL - CBC - LIPID PANEL BASIC 2. Dyslipidemia - ICD9: 272.4, ICD10: E78.5 - to be determined upon return of lab results - Encouraged following a low fat, low cholesterol diet. - Discussed the benefits of regular aerobic exercise and weight loss. - COMP METABOLIC PANEL - CBC 3. Hypothyroidism, acquired - ICD9: 244.9, ICD10: E03.9 - Instructed patient on importance of taking on an empty stomach either first thing in the morning or at bedtime. - continue current dose of Synthroid Stable - Behavioral intervention and - Continue current medications - CBC + DIFF - TSH BLD - T4 FREE/FREE THYROX - TSH BLD - T4 FREE/FREE THYROX 4. Hyperkalemia - ICD9: 276.7, ICD10: E87.5 - COMP METABOLIC PANEL 5. Vitamin B12 deficiency - ICD9: 266.2, ICD10: E53.8 Recheck labs as ordered, continue supplement - VITAMIN B12 BLOOD 6. Vitamin D deficiency - ICD9: 268.9, ICD10: E55.9 See above - VITAMIN D 25 HYDROXY 7. Hyperglycemia - ICD9: 790.29, ICD10: R73.9 Recheck labs - HGB A1C 8. Personal history of alcoholism (HCC) - ICD9: V11.3, ICD10: F10.21 Recheck labs as ordered Vini Sparks DO To ER if develops chest pain, shortness of breath, or severe worsening of symptoms. Discussed risks, benefits, alternatives, and potential side effects of medications. Patient expressed understanding and agreed with the plan. Vini Sparks DO [address] [place] [address] documented in this encounterSt. Charles Hospital04-25-2023 Miscellaneous Notes* Telephone Encounter - [place]jignesh [place] [facility] [place]09[place] 10:39 AM EDT Patient has been identified by name and date of : Yes Requested Prescriptions Pending Prescriptions Disp Refills metoprolol tartrate, short acting, (LOPRESSOR) 50 mg tablet 180 tablet 3 Sig: Take 1 tablet by mouth twice daily. RX INSTRUCTIONS: Patient aware RX will be sent to pharmacy. No need to notify patient. [facility]ins [facility] documented in this encounterSt. Charles Hospital04-19-2023 History of Present illness Narrative* Owen Lopez RN - 08/03/2022 2:38 PM EDT CDM Telephonic Outreach Provider Action/FYI LVM HTN depression 08/15 PCP appt Contacted for: Routine Telephonic Outreach Contact made with patient: No, left message. Owen Lopez RN August 03, 2022 2:39 PM documented in this encounterSt. Charles Hospital04-12-2023 Miscellaneous Notes* Telephone Encounter - Erik Smith RN - 07/27/2022 8:03 AM EDT [facility] OUTREACH Provider Action/FYI: Patient will call local pharmacy to ask pharmacist what they can take for diarrhea. This RN offeredto triage symptoms, and informed unable to give recommendation on which anti-diarrheal to take but local pharmacy where they get prescriptions filled ca. Patient politely decline triage and will callpharmacy. Hello, you've reached [facility], my name is Erik Smith RN, I'm a registered nurse, and we are on a recorded line. Patient identified by name and date of Spoke with patient Verify that the patient is a [facility] patient: Yes Are you having any symptoms today? No - What is the reason for call? General Questions/Other Need Started having nausea, vomiting, and diarrhea Monday but felt better around 12:00 PM. This morning, it started again. Asking that they can take over the counter for the diarrhea. Call Disposition: Managed by H@H RN Will call back/seek care for new/worsening symptoms. documented in this encounterSt. Charles Hospital04-03-2023 Miscellaneous Notes* Telephone Encounter - Kiya Jamison LPN - 07/18/2022 12:48 PM EDT Patient phones requesting refills as follows: Requested Prescriptions Pending Prescriptions Disp Refills losartan (COZAAR) 50 mg tablet [Pharmacy Med Name: losartan 50 mg tablet] 30 tablet 1 Sig: Take 1 tablet by mouth once daily. JANINE-06/13/22 Labs-01/28/22 NOV-08/15/22 med filled 02/18/22 Please review and advise. Kiya Jamison LPN documented in this encounterSt. Charles Hospital03-22-2023 History of Present illness Narrative* Owen Lopez RN - 07/06/2022 2:38 PM EDT INSIGHT CDM TELEPHONIC OUTREACH Provider Action/FYI: Spoke to pt, no CDM issues or concerns BP 130's/80's HTN 08/15 PCP appt Contact made with patient: Yes Patient identified by name and . Discussed care with patient It s nice talking to you again. As a reminder, this is our bi-weekly check-in where I will be asking you questions about your health. This will only take a few minutes of your time. Is this a good time? Yes Symptoms What Chronic Disease(s) does the patient have: HTN Do you check your blood pressures at home? Yes, Enter readings: 130/80's Do you have new or worse shortness of breath with activity? No Do you feel like you are dehydrated for any reason, including not being able to eat or drink normally, or having less urine/much darker urine than normal for you? No Do you check your daily weight at home? No Are you having any other symptoms that your PCP needs to know about? No Symptoms: none Symptom Escalation ABNER Education Ordered -: No The patient required an escalation for symptom(s)? No Medications Do you have any questions about taking your medication or which medications you should be on? No Do you need any medication refills at this time, including any of the medications you might take only when needed? No Social We would like to make sure you have what you need so that your basic needs are met- including your personal safety, food, housing, transportation and medications? Would you like to speak with a social work cdl team truck driver to help give you support for any of these needs? No did not ask It can be normal to feel anxious or down during a time like this. Would you like to talk to a mental health professional about how you have been feeling? No did not ask Closing Thank you for taking the time to talk with me today. We want to work with you to ensure that we arekeeping your medical condition(s) well-controlled and to keep you healthy and out of the doctor's office or hospital. It s also not too late for me to sign you up for automated weekly questionnaires through SwitchNote. This is an easy way for us to stay connected each week. Are you interested? No, I understand. We can always sign you up in the future if you change your mind. Just as a reminder, will continue to call you every other week to check in on your health. Our calls should take 10-15 minutes or less. Remember, if you have concerns in between our calls, please call your PCP's office right away. Thank you. Enter next patient outreach date for two weeks on the same day of the week as today in the Track PtOutreach and End outreach. documented in this encounterSt. Charles Hospital02-27-2023 History of Present illness Narrative* Radha Jurado APRN.MAINTENANCE AND CUSTODIAN SUPERVISOR - 06/13/2022 11:09 AM EST Chief Complaint Patient presents with: Depression HPI Ica A Augustine is a 81 year old female who presents here today for Above Complaints. Today: Is doing very well on her Zoloft 50mg daily. Is more social, less borden. Appetite is good. Sleepingbetter. Past medical history, appointments, medications, allergies reviewed. [...] SHOULDER Left 01/09/2019 Dr. David Nieto @ [facility]; L reverse total shoulder replacement; L distal clavicle resection ARTHRP KNE CONDYLE&PLATU MEDIAL&LAT COMPARTMENTS 2008 Knee replacement, total, bilateral BX BREAST W/DEVICE 1ST LESION STEREOTACTIC GUID Left 11/24/2015 BX/EXC LYMPH NODE OPEN DEEP AXILLARY NODE Left 12/07/2015 CHOLECYSTECTOMY Cholecystectomy INJ RADIOACTIVE TRACER FOR ID OF SENTINEL NODE 12/07/2015 MASTECTOMY, SIMPLE, COMPLETE Left 12/07/2015 TONSILLECTOMY HX Family History FAMILY HISTORY Problem Relation Age of Onset Cancer Mother ? no details, 85 Coronary Artery Disease Father [place], 94 Cancer Sister 57 liver Cancer Brother [...] Prior to Visit Medication Sig sertraline (ZOLOFT) 25 mg tablet Take 1 tablet PO daily at bedtime x 1 week then increase to 2 tablets PO daily at bedtime metoprolol tartrate, short acting, (LOPRESSOR) 50 mg tablet Take 1 tablet by mouth twice daily. amLODIPine (NORVASC) 5 mg tablet Take 1 tablet by mouth once daily. levothyroxine (LEVOXYL) 112 mcg tablet Take 1 tablet by [...] Never Smokeless tobacco: Never Vaping Use Vaping Use: Never used Substance Use Topics Alcohol use: Not Currently Comment: couple times a week Drug use: No Review of Symptoms REVIEW OF SYSTEMS See HPI, otherwise negative EXAM: BP 124/78 (BP Site: Left Arm, BP Position: Sitting, BP Cuff Size: Regular Adult) Pulse (!) 51 Wt 79.5 kg (175 lb 3.2 oz) SpO2 96% BMI 33.10 kg/m General Appearance: Well appearing, alert, in no acute distress, well-hydrated, well nourished.. Lungs: Lungs clear to auscultation. No wheezing, rhonchi, rales.. Heart: RRR without murmur, gallop, or rubs. No ectopy. Psychiatric: pleasant, cooperative. Health Maintenance List SHINGRIX VACCINE(1 of 2) Never done FECAL OCCULT BLOOD due on 03/23/2022 ADVANCE DIRECTIVE DISCUSSION Never done DTAP,TDAP,TD(1 - Tdap) due on 01/21/2023 DIABETES SCREEN due on 01/28/2025 BONE DENSITY Completed INFLUENZA Completed COVID-19 VACCINE Completed PNEUMOCOCCAL: 65+ Completed Data reviewed Previous records, office notes ASSESSMENT/PLAN: 1. Dysthymia - ICD9: 300.4, ICD10: F34.1 Doing well on current dose, continue current Zoloft 50mg daily. Follow up in 6 months, sooner if necessary. - SERTRALINE 50 MG TABLET Radha Jurado APRN.MARYANA documented in this encounterSt. Charles Hospital02-02-2023 Miscellaneous Notes* Telephone Encounter - Zayda Spence LPN - 05/19/2022 9:50 AM EST Rec'd covermymed PA for sertraline 25 mg. Called the pharmacy pt paid al for this rx. The issue would be the dose and qty. Insurance would not this to be 50 mg one daily not 25 mg two daily for next refill. documented in this encounterSt. Charles Hospital01-30-2023 Miscellaneous Notes* Telephone Encounter - Purnima Galvez LPN - 05/16/2022 9:35 AM EST Patient returned call and went over notes below from Dr Sparks with understanding.Patient had already picked up rx and stated medication. Scheduled appt with [facility] for 06/13/2022. * Telephone Encounter - Deana Ferreira Ma - 05/13/2022 2:03 PM EST Left message for patient to call back Deana Ferreira Ma * Telephone Encounter - Vini Sparks DO - 05/13/2022 1:44 PM EST Please inform patient to start on rx as below and make sure she has a follow up within the month with me or my team Vini Sparks DO The following approved medication requests have been transmitted electronically. Requested Prescriptions Signed Prescriptions Disp Refills sertraline (ZOLOFT) 25 mg tablet 90 tablet 0 Sig: Take 1 tablet PO daily at bedtime x 1 week then increase to 2 tablets PO daily at bedtime Vini Sparks DO * Telephone Encounter - Talia Toro RN - 05/13/2022 9:03 AM EST Pt called and is notified of providers message and instructions. Pt voices understanding. She states she will try whatever provider thinks is best and would like it to go to [facility] in [place]. Talia Toro RN * Telephone Encounter - Vini Sparks DO - 05/13/2022 7:55 AM EST Patient would need to follow up with [facility] regarding the hormone concerns. I am okay with restarting Zoloft or Wellbutrin if she is willing Vini Sparks DO * Telephone Encounter - Liliana Love RN - 05/12/2022 11:00 AM EST Reason for Disposition [1] Depression AND [2] NO worsening or change Answer Assessment - Initial Assessment Questions 1. CONCERN: What happened that made you call today? Patient states that she has been irritable with her spouse, she feels like she is angry a lot of the time and can cry at the drop of a hat. 2. DEPRESSION SYMPTOM SCREENING: More irritable than normal, can cry easily. 3. RISK OF HARM - SUICIDAL IDEATION: None - INTENT: Do you have thoughts of hurting or killing yourself right NOW? No 4. RISK OF HARM - HOMICIDAL IDEATION: Do you ever have thoughts of hurting or killing someone else? (e.g., yes, no, no but preoccupation - INTENT: Do you have thoughts of hurting or killing someone right NOW? No 5. FUNCTIONAL IMPAIRMENT: How have things been going for you overall? Have you had more difficultythan usual doing your normal daily activities? (e.g., better, same, worse; self-care, school, work, interactions) Same 6. SUPPORT: Who is with you now? Who do you live with? Do you have family or friends who you can talk to? Spouse Protocols used: [id number] [facility]ALTH[facility] AT HOME OUTREACH Provider Action/FYI: Patient feels angry at lot at spouse. States that she feels irritable and can cry at the drop of a hat. Feels that maybe she should go back on a hormone replacement to help stabilize her mood. She does not feel that she is a harm to herself or others. Helreg, you've reached [facility], my name is Liliana Love RN, I'm a registered nurse, and we are on a recorded line. Patient identified by name and date of Spoke with patient Verify that the patient is a [facility] patient: Yes Are you having any symptoms today? Yes - Go to Fatuma Ramirez Protocol Symptoms present: Irritability Based on what you've told me, I do recommend that you: Managed by H@H RN routed to PCP to see if patient needs to be seen or a medication can be started. Do you understand my recommendations? (After patient verifies understanding) If you develop any newsymptoms, your condition worsens, then GO TO THE EMERGENCY ROOM OR CALL 911. If you have any questions, please call us back. documented in this encounterSt. Charles Hospital01-17-2023 Miscellaneous Notes* Telephone Encounter - Estee Alfonso LPN - 05/03/2022 11:32 AM EST Orders faxed. Estee Alfonso LPN * Telephone Encounter - 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 APRN.CNP - 05/03/2022 10:55 AM EST Rx done. 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 APRN.MAINTENANCE AND CUSTODIAN SUPERVISOR * Telephone Encounter - Ashley King - 05/03/2022 10:17 AM EST [facility] is requesting a new prescription for the mastectomy bras [phone]. Ph. [phone]. The patient is eligible to receive 3 bras per year. documented in this encounterSt. Charles Hospital01-11-2023 History of Present illness Narrative* Peace Hylton RN - 04/27/2022 9:12 AM EST [facility] CDM Enrollment Provider Action/FYI: Lexx this is Peace Hylton RN your nurse Sock Mender. I am calling to provide you with a phonenumber to connect you with [facility] services. This number is available 7 days a week from 8am-8pm and provides you with one call access to nursing, appointments, and other valuable resources.I can also send this information to your [employer]. Please take the time to write this number down . - AGREES TO MONTHLY OUTREACHES - DENIES NEEDS OR CONCERNS AT THIS TIME Patient referred by: [facility] Alissa Contact made with patient: Yes - Patient identified by name and . Discussed care with patient Lexx this is Peace Hylton RN and I am calling from Vini Sparks DO office at the [facility]. I am a RN Sock Mender with our [facility] Chronic Disease Management program. Vini Sparks DO wanted me to reach out to help you manage your health at home. Our goal is to keep you wellat home. We want to help you manage your chronic disease by providing a safety net of resources around you, getting you the care you need in a timely manner, and hopefully keep you out of the ED and hospital. I will send you a few questions once a week through your SwitchNote account. It will automatically show up for you to complete. There are simple questions that will help us identify if you haveany concerns or symptoms and I will call you to help get what you need. We will be able to connect you, review your symptoms, do an on demand visit, or communicate with Vini Sparks DO if needed. I am going to sign you up for the program now. Enrollment Questions: Let's get you enrolled in the program. Yes, Do you have regular access to a computer/smartphone? No, Are you offering patient a biweekly phone call? yes/no: Yes. Goal Setting: I would like to take some time today to discuss your personal health goals. Patient does not have a goal. We will review during our next conversations to help support you. Most people know what to do to become healthier, yet struggle to put it into action on their own.Itcan be hard to maintain a healthy lifestyle, especially when life is so stressful. Can we connect you with a [facility] Guide Dog Instructor to find a program that could help you meet your goals? No Closing: Patient accepts telephonic outreach. ABNER Farah Ordered -: No Thank you for your time today. I am excited to work together in managing your health! I will check back within in two weeks to see how things are going. If questions or concerns arise between phone calls, please reach out to your PCP s office. (Place in active status for [facility] and place name in care team and update next patient outreach data to next business day two weeks from today s date) documented in this encounterSt. Charles Hospital01-09-2023 Miscellaneous Notes* Telephone Encounter - Gloria Jerez Pss - 04/25/2022 8:53 AM EST Pharmacy verified in [facility] Patient has been identified by name and date of : Yes Patient aware RX will be sent to pharmacy. No need to notify patient. Patient phones for refill(s): Requested Prescriptions Pending Prescriptions Disp Refills metoprolol tartrate, short acting, (LOPRESSOR) 50 mg tablet 60 tablet Sig: Take 1 tablet by mouth twice daily. Date of last office visit : 02/18/2022 Labs-01/28/22 Date of next office visit : 08/15/2022 Last 2 Encounter Wt Readings: Date: Wt: 02/18/2022 76.8 kg (169 lb 6.4 oz) 01/21/2022 76.3 kg (168 lb 3.2 oz) Please advise. Gloria Jerez Pss documented in this encounterSt. Charles Hospital10-20-2022 Miscellaneous Notes* Telephone Encounter - Neha Mcmahon Ma - 02/03/2022 9:17 AM EDT Pt informed, verbalized understanding Neha Mcmahon Ma * Telephone Encounter - Vini Sparks DO - 02/02/2022 9:50 PM EDT Please inform patient that her BMD shows IMPRESSION: Osteopenia in the left femoral neck. 10-year Fracture Risk (FRAX): Major osteoporotic fracture risk 21% Hip fracture risk 11% I suggest 1200-1500mg of Calcium carbonate into 2 doses daily as well as at least 1000 units of Vitamin D3 daily. Weight bearing exercise, if not already doing, and f/u exam in 2 years for bone density. Vini Sparks DO documented in this encounterSt. Charles Hospital10-17-2022 Miscellaneous Notes* Telephone Encounter - Neha Mcmahon Ma - 01/31/2022 9:27 AM EDT Pt informed, verbalized understanding. Neha Mcmahon Ma * Telephone Encounter - Ayesha Jefferson APRN.CNP - 01/31/2022 7:27 AM EDT Please call and let patient know that potassium is back within normal levels. We will continue to monitor this regularly with the new losartan regimen. For now, no changes. Thank you, Ayesha Jefferson APRN.MARYANA documented in this encounterSt. Charles Hospital10-13-2022 Miscellaneous Notes* Telephone Encounter - Neha Mcmahon Ma - 01/27/2022 2:26 PM EDT Pt informed, verbalized understanding Neha Mcmahon Ma * Telephone Encounter - Ayesha Jefferson APRN.CNP - 01/27/2022 1:30 PM EDT Please let patient know that blood work results look great! Lipid panel is much improved from prior. Continue with the pravastatin 40 mg daily. Thyroid is all normal. Continue current regimen. My only concern is the potassium level of 5.5. This is too high. The losartan can cause elevation in potassium. I would like a redraw [facility] tomorrow to reassess this and if still elevated we may need to change HTN regimen. Thank you, Ayesha Jefferson APRN.MARYANA * Telephone Encounter - Ailin Barrow RN - 01/27/2022 1:11 PM EDT Patient calls and is asking about labs results that were done on 01/21/2022. Please review and advise, Ailin Barrow RN documented in this encounterCleveland [id number] History of Present illness Narrative* Ayesha Jefferson, DIMITRIOS.MAINTENANCE AND CUSTODIAN SUPERVISOR - 01/21/2022 11:19 AM EDT Chief Complaint Patient presents with: BP Check HPI Ica Senia Bradshaw is a 81 year old female who presents here today for Above Complaints. Ica is an established patient of Dr. Sparks, and myself. Concerns today... HTN --- 2 ED visits on 01/17 and 01/18 at [place] [facility] for high BP and headaches. Recent office visits for HTN with on 01/13 and Ashley Flores on 01/03. 1st ER visit -- patient had CT head, laboratory studies, including normal electrolytes, kidney function, and sequential troponins which were reassuring, as well as a baseline EKG. There is no evidence of endorgan damage yesterday, and patient's blood pressure was brought safely down in the emergency room with the addition of hydralazine. 2nd ER visit -- 1 dose of catapres improved HTN, Tylenol improved headache. Started patient on losartan 50 mg daily and discharged. Today.. Reports feeling much better since starting the losartan. Headaches are greatly improved. BP has decreased from at home readings but still elevated -- around 180s systolic per pt. When comparing home BP cuff with our readings -- home BP was 200s systolic while in office cuff [id number] systolic. Pt does admit BP cuff to be very old. She denies chest pain, shortness of breath, palpitations, dizziness, leg edema, or vision changes. Last 14 Encounter BP Readings: Date: BP: 01/21/2022 170/80 01/18/2022 154/88 01/17/2022 136/73 01/13/2022 166/84 01/03/2022 138/88 12/14/2021 120/70 12/02/2021 149/76 10/21/2021 124/64 09/24/2021 142/86 03/23/2021 136/84 01/20/2021 138/84 11/13/2020 117/78 10/14/2020 150/92 03/05/2020 130/86 Zoloft -- Officially out of system. Stopped mediation 6 weeks ago now. Feels stable and mood well controlled without medication. Does not want to start any new medications for anxiety/depression at this point. HLD -- Pravastatin 40 mg daily. Will recheck today. Component Latest Ref Rng & Units 03/15/2021 Cholesterol, Total <200 mg/dL 244 (H) Triglyceride <150 mg/dL 116 HDL Cholesterol >39 mg/dL 89 LDL Cholesterol <100 mg/dL 132 (H) Non HDL Cholesterol <130 mg/dL 155 (H) Fasting Time hrs 12 VLDL Cholesterol <30 mg/dL 23 TC:HDL Ratio <5.10 2.74 LDL:HDL Ratio <2.54 1.48 Hypothyroidism --- Levothyroxine 112 mcg daily. Does report some mild fatigue. Otherwise, no other hypothyroidism symptoms. Will recheck lab work today. Past medical history, appointments, medications, allergies reviewed. 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 David Nieto; R reverse total shoulder replacment ARTHROPLASTY TOTAL SHOULDER Left 01/09/2019 Dr. David Nieto @ [facility]; L reverse total shoulder replacement; L distal clavicle resection ARTHRP KNE CONDYLE&PLATU MEDIAL&LAT COMPARTMENTS 2008 Knee replacement, total, bilateral BX BREAST W/DEVICE 1ST LESION STEREOTACTIC GUID Left 11/24/2015 BX/EXC LYMPH NODE OPEN DEEP AXILLARY NODE Left 12/07/2015 CHOLECYSTECTOMY Cholecystectomy INJ RADIOACTIVE TRACER FOR ID OF SENTINEL NODE 12/07/2015 MASTECTOMY, SIMPLE, COMPLETE Left 12/07/2015 TONSILLECTOMY HX Family History FAMILY HISTORY Problem Relation Age of Onset Cancer Mother ? no details, 85 Coronary Artery Disease Father [place], 94 Cancer Sister 57 liver Cancer Brother [...] on File Prior to Visit Medication Sig losartan (COZAAR) 50 mg tablet Take 1 tablet by mouth once daily. naproxen (NAPROSYN) 500 mg tablet Take 1 tablet by mouth twice daily as needed (for pain/inflammation). Take with food. metoprolol tartrate, short acting, (LOPRESSOR) 50 mg tablet Take 1 tablet by mouth twice daily. (Patient taking differently: Take 100 mg by mouth twice daily.) vitamin b complex tab Take 1 tablet by mouth once daily. levothyroxine (LEVOXYL) 112 mcg tablet Take 1 tablet by mouth daily Take on empty stomach. For thyroid. pravastatin (PRAVACHOL) 40 mg tablet Take 1 tablet by mouth daily at bedtime. calcium carbonate/vitamin D3 (CALCIUM 600 + D,3, ORAL) Take 1 tablet by mouth once daily. No current facility-administered medications on file prior to visit. Social History Social History Tobacco Use Smoking status: Never Smokeless tobacco: Never Vaping Use Vaping Use: Never used Substance Use Topics Alcohol use: Not Currently Comment: couple times a week Drug use: No REVIEW OF SYSTEMS: as above Reviewed relevant PMHx, PSHx, Social Hx, current medications and allergies. Review of Symptoms REVIEW OF SYSTEMS See HPI. All other systems are negative. EXAM: BP 170/80 (BP Site: Right Arm, BP Position: Sitting, BP Cuff Size: Regular Adult) Pulse (!) 53 Resp 14 Wt 76.3 kg (168 lb 3.2 oz) SpO2 100% BMI 31.78 kg/m General Appearance: Well appearing, alert, in no acute distress, well-hydrated, well nourished.. Skin: Skin color, texture, turgor normal, no suspicious rashes or lesions. Head: Normocephalic, no masses, lesions, tenderness or abnormalities. Neck: Supple, no adenopathy; thyroid symmetric, normal size, no bruits. Back:no pain to palpation of vertebrae, good flexion and extension, good range of motion, no muscletenderness, reflexes are 2+ and symmetric, motor and sensory appear to be normal, negative SLR test, no evidence of scoliosis Lungs: Lungs clear to auscultation. No wheezing, rhonchi, rales.. Heart: RRR without murmur, gallop, or rubs. No ectopy. Abdomen: Normal abdominal exam, Abdomen soft, non-tender. Bowel sounds normal. No masses, organomegaly. Extremities: No deformities, edema, skin discoloration, clubbing or cyanosis. Good capillary refill. . Musculoskeletal: No joint swelling, deformity, or tenderness. Peripheral Pulses: Normal. Neurologic: Gait normal. Reflexes normal and symmetric. Sensation grossly intact.. Health Maintenance List SHINGRIX VACCINE(1 of 2) Never done ADVANCE DIRECTIVE DISCUSSION Never done INFLUENZA(1) due on 12/16/2021 DTAP,TDAP,TD(1 - Tdap) due on 01/21/2023 FECAL OCCULT BLOOD due on 03/23/2022 DIABETES SCREEN due on 01/17/2025 BONE DENSITY Completed COVID-19 VACCINE Completed PNEUMOCOCCAL: 65+ Completed ASSESSMENT/PLAN: 1. HYPERTENSION BENIGN - ICD9: 401.1, ICD10: I10 (primary diagnosis) - poor control Improving symptoms and BP control since ED visit 3-4 days ago. But current BP still largely above goal. Increasing HTN dosage regimen even though only 4 days on current regimen. Pt agreeable. Take BP at home daily with new BP cuff as ordered. Bring recordings to next appointment. Report systolic of 200 to office. Discussed when to seek immediate medical attention at ER. - Continue current medication(s) - Increase losartan(Cozaar) to 50 mg BID. - Encouraged dietary sodium restriction/DASH diet - Recommended regular aerobic exercise. - Recommend home blood pressure monitoring, to bring results in on next visit - Discussed need and benefit for weight loss. - Follow up in 1 month for BP recheck. - Goal of BP <130/80 - Recommend home or pharmacy blood pressure monitoring - Recommended no refined sugar, low refined starch, healthy oil intake (olive oil), healthy protein(fish) along the lines of the Mediterranean diet. - BLOOD PRESSURE TEST KIT-LARGE CUFF - LOSARTAN 50 MG TABLET 2. Encounter for immunization - ICD9: V03.89, ICD10: Z23 - INFLUENZA SEASONAL QUADRIVALENT HIGH DOSE AGE 65+ 3. PALMA (generalized anxiety disorder) - ICD9: 300.02, ICD10: F41.1 Stable. Well controlled with relaxation techniques. Continue without medication regimen at this time. If symptoms return, please RTO. 4. Headaches - ICD9: 784.0, ICD10: R51.9 Improving. Likely related to HTN. 5. Dyslipidemia - ICD9: 272.4, ICD10: E78.5 - to be determined upon return of lab results. Have blood work drawn as ordered prior. - Continue current medication. - Check fasting lipid panel and ALT. - Encouraged following a low carbohydrate, healthy oil intake diet. 6. Hypothyroidism, acquired - ICD9: 244.9, ICD10: E03.9 Check blood work as ordered prior. Continue current regimen for now. 7. Fatigue, unspecified type - ICD9: 780.79, ICD10: R53.83 Check blood work as ordered prior. RTO in 4 weeks, sooner if needed. Prescription instructions reviewed with patient as applicable. Potential red flag symptoms discussed with the patient. Reviewed appropriate action plan to take if red flag symptoms occur. Patient agreeable to treatment plan. Ayesha Jefferson APRN.CNP [address] [place] [address] documented in this encounterSt. Charles Hospital10-05-2022 Miscellaneous Notes* Telephone Encounter - Ayesha Jefferson APRN.CNP - 01/19/2022 7:36 PM EDT Agree with below. Ayesha Jefferson APRN.CNP * Telephone Encounter - Brigitte Guerra LPN - 01/18/2022 2:09 PM EDT Pt's caregiver calls from [facility] stating this is the second day pt has been to the ER for high blood pressure and headache. Caregiver reports that today pt's bp was over 200 and pt said it felt like her head was going to explode. Spoke to Dr. Sparks who advised that pt should be admitted to the hospital. Caregiver notified ofsa. Brigitte Guerra LPN documented in this encounterSt. Charles Hospital09-19-2022 Instructions* Patient Instructions* Ashley Flores APRN.CNP - 01/03/2022 2:32 PM EDT 1.) Recommend monitoring blood pressure at home, 1-2 times daily, write down numbers. 2.) Take Metoprolol 1.5 tablets twice daily. 3.) Get plenty of rest and stay hydrated 4.) foreign object removed from left ear. 5.) If symptoms do not improve please contact the office. documented in this encounterSt. Charles Hospital09-19-2022 History of Present illness Narrative* Ashley Flores APRN.MARYANA - 01/03/2022 2:20 PM EDT This is a 81 year old female who presents today with: Patient presents with: Acute Visit: LANE, and elevated BP HISTORY OF PRESENT ILLNESS: Harjit Bradshaw is a 81 year old female. Patient presents with: Acute Visit: LANE, and elevated BP Here in the office for headache and elevated blood pressure. Headaches for the past 2 weeks that wax and wane. On Monday the headache seemed worse, felt weak, light-headed. Used tylenol and dramamine. The medication helped. Maynard better today. Blood pressure was elevated at home. Refers that she wastaking Metoprolol 25 mg BID, ordered 1.5 tablet BID. Took medication this morning and BP came down. Lab work completed in October was within normal limits. PAST MEDICAL HISTORY: PAST MEDICAL HISTORY Diagnosis Date Anxiety Bilateral malignant neoplasm of central portion of breast in female (HCC) Disorder of bone and cartilage, unspecified Microcalcifications of the breast 11/24/2015 left Osteoarthrosis, unspecified whether generalized or localized, other specified sites knees Other and unspecified hyperlipidemia Unspecified hypothyroidism PAST SURGICAL HISTORY Procedure Laterality Date ARTHROPLASTY TOTAL SHOULDER Right 11/28/2017 Dr. David Nieto; R reverse total shoulder replacment ARTHROPLASTY TOTAL SHOULDER Left 01/09/2019 Dr. David Nieto @ [facility]; L reverse total shoulder replacement; L distal clavicle resection ARTHRP KNE CONDYLE&PLATU MEDIAL&LAT COMPARTMENTS 2009 Knee replacement, total, bilateral BX BREAST W/DEVICE 1ST LESION STEREOTACTIC GUID Left 11/24/2015 BX/EXC LYMPH NODE OPEN DEEP AXILLARY NODE Left 12/07/2015 CHOLECYSTECTOMY Cholecystectomy INJ RADIOACTIVE TRACER FOR ID OF SENTINEL NODE 12/07/2015 MASTECTOMY, SIMPLE, COMPLETE Left 12/07/2015 TONSILLECTOMY HX ALLERGIES Morphine MEDICATIONS Current Outpatient Medications Medication Sig vitamin b complex tab Take 1 tablet by mouth once daily. levothyroxine (LEVOXYL) 112 mcg tablet Take 1 tablet by mouth daily Take on empty stomach. For thyroid. pravastatin (PRAVACHOL) 40 mg tablet Take 1 tablet by mouth daily at bedtime. metoprolol tartrate, short acting, (LOPRESSOR) 25 mg tablet Take 1.5 tablets by mouth twice daily. calcium carbonate/vitamin D3 (CALCIUM 600 + D,3, ORAL) Take 1 tablet by mouth once daily. No current facility-administered medications for this visit. FAMILY HISTORY Problem Relation Age of Onset Cancer Mother ? no details, 85 Coronary Artery Disease Father [place], 94 Cancer Sister 57 liver Cancer Brother 50 Acute leukemia Cancer Brother Unknown type of cancer Cancer Brother ?Lung--Unknown type of cancer Cancer Sister 70 Breast cancer Cancer Sister lung Cancer Sister Rheumatologic disease Sister Cancer Brother lung COPD Brother Heart Brother Social History Tobacco Use Smoking status: Never Smokeless tobacco: Never Vaping Use Vaping Use: Never used Substance Use Topics Alcohol use: Yes Comment: couple times a week Drug use: No REVIEW OF SYSTEMS GENERAL: No weight loss, malaise or fevers/chills HEENT: Negative for frequent or significant headaches, No changes in hearing or vision. NECK: Negative for lumps, goiter, pain and significant neck swelling RESPIRATORY: Negative for cough, hemoptysis, wheezing, dyspnea or shortness of breath CARDIOVASCULAR: Negative for chest pain, leg swelling, orthopnea, or palpitations GI: No nausea, vomiting, or diarrhea/constipation. No hematochezia/melena. No heartburn or reflux symptoms. : No history of dysuria, frequency or incontinence MUSCULOSKELETAL: Negative for joint pain or swelling. SKIN: Negative for lesions, rash, and itching ENDOCRINE: Negative for cold or heat intolerance, polyuria, polydipsia and goiter NEURO: + Headache MOOD: Negative for depression, anxiety, or suicidal ideation. EXAM: BP 138/88 Pulse 61 Resp 16 Wt 76.7 kg (169 lb) SpO2 98% BMI 30.91 kg/m PHYSICAL EXAM: General Appearance: Well appearing, alert, in no acute distress, well-hydrated, well nourished. Skin: Skin color, texture, turgor normal, no suspicious rashes or lesions. Head: Normocephalic, no masses, lesions, tenderness or abnormalities. Eyes: Anicteric sclera. Pupils are equally round and reactive to light. Extraocular movements are intact. Ears: External ears normal, canals clear, Positive findings: Foreign object removed from the left ear canal with a curette. Was a small piece from her hearing aid. TMs pearly salas. Neck: Supple, no adenopathy; thyroid symmetric, normal size, no bruits. Lungs: Lungs clear to auscultation. No wheezing, rhonchi, rales.. Heart: RRR without murmur, gallop, or rubs. No ectopy. Extremities: No deformities, edema, skin discoloration, clubbing or cyanosis. Good capillary refill. Peripheral Pulses: Normal, Capillary refill <2secs, strong peripheral pulses, Pulses palpable. Neurologic: Gait normal. Sensation grossly intact. ASSESSMENT/PLAN: 1. HYPERTENSION BENIGN - ICD9: 401.1, ICD10: I10 (primary diagnosis) - suboptimal control - Symptoms more than likely due to incorrect medication dosing. - Continue current medication(s) - Recommended regular aerobic exercise. - Recommend home blood pressure monitoring, to bring results in on next visit - Goal of BP <130/80 2. Ear foreign body, left, initial encounter - ICD9: 931, E915, ICD10: T16.2XXA - Foreign body removed from the left ear canal without difficulty. Follow-up as needed or sooner if symptoms get worse or do not improve. Discussed treatment plan and patient voices understanding. Patient's questions answered appropriately. Medications and potential side effects were discussed and patient voices understanding. Ashley Flores APRN.MARYANA This note was partially generated using Teliportme voice recognition system. Note was reviewed for accuracy. There may be minor misspellings or grammar miscues with Teliportme voice recognition. documented in this encounterSt. [facility]09-19-2022 Miscellaneous Notes* Telephone Encounter - Shayla Jessica RN - 01/03/2022 8:23 AM EDT Protocol recommends see provider in 24 hours. The headache occurred yesterday and so far is resolved. During triage discovered BP is elevated and has been taking metoprolol 25 mg twice daily. Med list states she should be taking 25 mg 1.5 tabs twice daily. Patient states she never knew this. Scheduled same day appt. Patient agreeable to ER if LANE returns at 10/10 like she had yesterday. Reason for Disposition [1] New headache AND [2] age > 50 Answer Assessment - Initial Assessment Questions 1. LOCATION: No headache yet today. Color in face is normal today. Monday had eyes checked at eye doctor, and a bright light was used. No problems Fri or Sat. Monday morning was sweaty, shaky, and nauseous- before breakfast developed a bad LANE (has had off / on for a couple of weeks). Worst LANE she ever had- 10/10. Had dizziness/ lightheadedness, weakness, face looked salas, difficulty walking. Took2 dramamine and 2 tylenol XS. Slept about 2 hours. When woke up felt better- LANE was gone. Sat in chair most of the evening. Slept good through Monday night. 2. ONSET: Monday. 3. PATTERN: No longer has a LANE. Afraid it will return once she is moving around. Forehead, top of head, and between eyes is where the LANE was. 4. SEVERITY: 10/10 on Monday, prior to taking dramamine. 5. RECURRENT SYMPTOM: Has had LANE's for the last couple of weeks. BP reading 150's/80-90's- arm cuffautomatic. BP reading right now- 208/99 (60). Checked it again right away- 216/189. Waited 5 mins checked BP- 173/94 (58) 6. CAUSE: Feels it may be vertigo related to bright light at eye doctor. 7. MIGRAINE: No history of migraines. 8. HEAD INJURY: No recent injury. 9. OTHER SYMPTOMS: May have had a fever but didn't check, has been coughing off and on but not serious, no eye pain- eye doctor said eyes are healthy, blood vessels are good, may have astigmatism. Symptoms were nausea, dizziness/lightheadedness (no spinning), sick to stomach, LANE. No loss of vision. No numbness. No one sided weakness or slurred speech. 10. : No Protocols used: [id number] documented in this encounterSt. Charles Hospital09-16-2022 Miscellaneous Notes* Telephone Encounter - Fabiana De Los Santos LPN - 12/31/2021 3:19 PM EDT Patient notified. Fabiana De Los Santos LPN * Telephone Encounter - 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 APRN.CNP - 12/31/2021 3:01 PM EDT Please inform pt. that her mammogram looks good. Follow up as scheduled. Thank you. 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 APRN.MARYANA documented in this encounterSt. Charles Hospital09-16-2022 Miscellaneous Notes* Letter - Mammography Coordinator - 12/31/2021 1:03 PM EDT December 31, 2021 PID: [id number] Harjit Bradshaw [address] [place] [id number] Dear Ms. Bradshaw, We are pleased to inform you that the results of your recent breast imaging exam on 12/31/2021 are normal. Your mammogram demonstrates that you have dense breast tissue, which could hide abnormalities. Dense breast tissue, in and of itself, is a relatively common condition. Therefore, this information is not provided to cause undue concern; rather, it is to raise your awareness and promote discussion with your health care provider regarding the presence of dense breast tissue in addition to other riskfactors. Early detection of cancer is very important. We also understand recommendations regarding breast cancer screening are controversial. Please discuss with your primary care provider which strategy is best for you and whether a mammogram is right for you. Your imaging studies and report will be kept on file at [facility] as part of your permanent medical record and are available for your continuing care. Thank you for allowing us to help in meeting your health care needs. Sincerely, Dr. Sloan Interpreting Radiologist [facility] (Normal over 40) documented in this encounterSt. Charles Hospital09-16-2022 History of Present illness Narrative* RT Darryl(R) - 12/31/2021 11:10 AM EDT Radiology Service Progress Note PATIENT NAME: Harjit Bradshaw DATE OF SERVICE: December 31, 2021 TIME: 11:00 AM PATIENT IDENTITY VERIFICATION COMPLETED USING TWO (2) IDENTIFIERS: Name and Date of confirmedby patient verbally. FALL SCREENING: Has the patient had 2 falls in the last year or 1 fall with injury or currently using an Ambulatory Assistive Device (Walker, Cane, Wheelchair, Crutches, etc.)? No PATIENT GENDER DATA: Female. status: : No status: NO. PATIENT RELEVANT IMPLANT DATA REVIEWED: Not Applicable RADIOLOGY DEPARTMENT: Mammography PERIPHERAL IV DATA: Not applicable SIGNED BY: RT Darryl(R) December 31, 2021 11:00 AM documented in this encounterSt. Charles Hospital08-31-2022 History of Present illness Narrative* Vini Sparks DO - 12/15/2021 7:11 AM EDT CC: Harjit Bradshaw is a 81 year old female who presents to the office for follow up HPI: Previously Feb 2020 Vertigo, off and on symptoms, lasting typically for seconds at a time, months of symptoms. Worse when she moves her head such as laying down to go to sleep at night or rotating her head during cleaning or cooking etc. No headaches or vision changes or vomiting or fevers or chills or syncope symptoms or head injuries Strong urine odor like ammonia that has been occurring x months. No burning or obvious blood in urine or flank pain or fevers or chills Admits that she has been drinking 3-4 beers per day, her also has been drinking more than usual in the last few months. Has a fmhx of alcoholism in brothers and previously in father as well. Knows it is too much and I need to slow down. I know it is a problem. Hypothyroidism, taking levothyroxine 112 mcg only 6 days a week currently TSH Date Value Ref Range Status 02/26/2020 1.750 0.270 - 4.200 uU/mL Final Free T3 2.5 10/15/2018 T3 73 02/26/2020 Free T4 Date Value Ref Range Status 02/26/2020 1.2 0.9 - 1.7 ng/dL Final BLOOD PRESSURE has been elevated 140-150/80-90s, no CP or dyspnea or palpitations or edema She was started on wellbutrin at that time At follow up virtually 04/01/2020 She hasn't started medicaiton yet but feels she is ready to try this. She is down to 1-2 beers per day but struggling with this sometimes. Plan: will start on once a day wellbutrin and titrate up as needed, f/u in 3-4 weeks to see how sheis doing At next virtual follow up on 05/01/20 She states that she is tolerating the wellbutrin 150 mg tablet very well and feels much better on this. She has been able to cut out the beer mostly and taper off of it. Much less cravings and less difficulty with this process. Very happy about this success. No obvious SE from medication. Plan: will continue this same medication and f/u in 3-4 months in the office when able [facility] She was seen by Deana Du CNP. She was complaining of headaches and dizziness, found to have chronic changes without acute findingon MRI brain. She was started on Zoloft and this was titrated up. Her wellbutrin was stopped. At [facility] 01/20[facility]2021 Mood, feels it is improved, taking 150 mg Zoloft daily, no SI or HI. Has cut down to about 1 beer per day. Knows needs to quit, doesn't want to talk to a counselor or go into a rehab program. Admits to some fatigue and tremors or hands and face at times. Wonders if this is related to the alcohol intake in the past. Hypothyroidism, taking levothyroxine, tolerating well. Seen in office in Mar 2021, at that time Mood, she states that she is doing great. Feels much better controlled and finding carmen again, taking the Zoloft as prescribed. Is now completely off the alcohol, only occasionally drinking an Alcohol-free beer. No alcohol at all. Has quit and feels so good about her accomplishment. She is very excited about her days and more motivated. Denies any concerns. Smiling much more. Currently She was feeling that she was more irritable and overwhelmed and anxious feeling. She states that she just weaned herself off the Zoloft in the last 2 weeks and she is feeling much better, I am like myself again. She has been enjoying her and sitting on the porch. Also has been able to gettogether with a girlfriend and get a pedicure and relax. Feels she is in a stable position for her mood Hypothyroidism, taking levothyroxine TSH Date Value Ref Range Status 10/21/2021 0.406 0.270 - 4.200 mIU/L Final Free T4 Date Value Ref Range Status 10/21/2021 1.5 0.9 - 1.7 ng/dL Final PAST MEDICAL HISTORY Diagnosis Date Anxiety Bilateral malignant neoplasm of central portion of breast in female (HCC) Disorder of bone and cartilage, unspecified Microcalcifications of the breast 11/24/2015 left Osteoarthrosis, unspecified whether generalized or localized, other specified sites knees Other and unspecified hyperlipidemia Unspecified hypothyroidism PAST SURGICAL HISTORY Procedure Laterality Date ARTHROPLASTY TOTAL SHOULDER Right 11/28/2017 Dr. David Nieto; R reverse total shoulder replacment ARTHROPLASTY TOTAL SHOULDER Left 01/09/2019 Dr. David Nieto @ [facility]; L reverse total shoulder replacement; L distal clavicle resection ARTHRP KNE CONDYLE&PLATU MEDIAL&LAT COMPARTMENTS 2009 Knee replacement, total, bilateral BX BREAST W/DEVICE 1ST LESION STEREOTACTIC GUID Left 11/24/2015 BX/EXC LYMPH NODE OPEN DEEP AXILLARY NODE Left 12/07/2015 CHOLECYSTECTOMY Cholecystectomy INJ RADIOACTIVE TRACER FOR ID OF SENTINEL NODE 12/07/2015 MASTECTOMY, SIMPLE, COMPLETE Left 12/07/2015 TONSILLECTOMY HX Current Outpatient Medications Medication Sig vitamin b complex tab Take 1 tablet by mouth once daily. levothyroxine (LEVOXYL) 112 mcg tablet Take 1 tablet by mouth daily Take on empty stomach. For thyroid. pravastatin (PRAVACHOL) 40 mg tablet Take 1 tablet by mouth daily at bedtime. metoprolol tartrate, short acting, (LOPRESSOR) 25 mg tablet Take 1.5 tablets by mouth twice daily. calcium carbonate/vitamin D3 (CALCIUM 600 + D,3, ORAL) Take 1 tablet by mouth once daily. No current facility-administered medications for this visit. ALLERGIES Allergen Reactions Morphine Mental Status Change, Intolerance, GI Upset Social History Tobacco Use Smoking status: Never Smokeless tobacco: Never Vaping Use Vaping Use: Never used Substance Use Topics Alcohol use: Yes Comment: couple times a week Drug use: No ROS: See HPI PE: BP 120/70 Pulse 64 Temp (Src) 97.5 (Temporal) Resp 16 Wt 170 lb (77.1kg) Gen: A&OX3, NAD, non-toxic appearing, hard of hearing, wearing glasses, pleasant, well dressed HEENT: PERRLA, EOMs intact b/l, nares without drainage, pharynx without erythema, exudate, lesions,or drainage. Uvula midline. Neck: No LAD, no thyromegaly, no meningismus. CV: RRR, no murmur, normal s1s2 Lungs: CTA b/l, no wheezing Skin: No rashes, lesions, or wounds on exposed skin. No edema, normal pulses ASSESSMENT/PLAN: 1. 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 Continue off the zoloft. Consider low dose of lexaproor celexa if starts to have symptoms of anxiety or depressed mood. 2. Osteopenia, senile - ICD9: 733.90, ICD10: M85.80 - set up for BMD AP Spine and Hip Unilateral - Reviewed the need for Calcium and Vitamin D supplements and weight bearing exercise as tolerated - DXA-AXIAL SKELETON 3. Disorder of bone and articular cartilage - ICD9: 733.90, ICD10: M89.9, M94.9 - set up for BMD AP Spine and Hip Unilateral - Reviewed the need for Calcium and Vitamin D supplements and weight bearing exercise as tolerated - DXA-AXIAL SKELETON 4. Disorder of bone density and structure, unspecified - ICD9: 733.90, ICD10: M85.9 - set up for BMD AP Spine and Hip Unilateral - Reviewed the need for Calcium and Vitamin D supplements and weight bearing exercise as tolerated - DXA-AXIAL SKELETON 5. Other specified disorders of bone density and structure, multiple sites - ICD9: 733.99, ICD10: M85.89 - DXA-AXIAL SKELETON 6. Dysthymia - ICD9: 300.4, ICD10: F34.1 See above, overall very stable now, not on any medication 7. Vitamin D deficiency - ICD9: 268.9, ICD10: E55.9 - VITAMIN D 25 HYDROXY 8. HYPERTENSION BENIGN - ICD9: 401.1, ICD10: I10 - good control - Continue current medication(s) - Encouraged dietary sodium restriction/DASH diet - Recommended regular aerobic exercise. - Recommend home blood pressure monitoring, to bring results in on next visit - Goal of BP <130/80 9. Dyslipidemia - ICD9: 272.4, ICD10: E78.5 - suboptimal control - Encouraged following a low fat, low cholesterol diet. - Discussed the benefits of regular aerobic exercise and weight loss. - COMP METABOLIC PANEL - CBC - LIPID PANEL BASIC 10. Hypothyroidism, acquired - ICD9: 244.9, ICD10: E03.9 - Instructed patient on importance of taking on an empty stomach either first thing in the morning or at bedtime. Stable - Behavioral intervention, - Pharmacological intervention, and - Continue current medications - TSH BLD - T4 FREE/FREE THYROX - T3 FREE BLD 11. Fatigue, unspecified type - ICD9: 780.79, ICD10: R53.83 - VITAMIN D 25 HYDROXY - VITAMIN B12 BLOOD Vini Sparks DO Return if no improvement. Follow up with Vini Sparks DO. To ER if develops chest pain, shortness of breath Discussed risks, benefits, alternatives, and potential side effects of medications. Patient/Guardian expressed understanding and agreed with the plan. See patient instructions. Vini Sparks DO [address] [place] [address] documented in this encounterSt. Charles Hospital08-18-2022 History of Present illness Narrative* 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 APRN.MAINTENANCE AND CUSTODIAN SUPERVISOR - 12/02/2021 11:39 AM EDT Chief Complaint Patient presents with: Established Patient HPI: Harjit Bradshaw is a 81 year old female who presents here today for follow up breast cancer. Per Dr. Nelson's previous note: H/o was found to have an abnormality in the left breast on a recent screening mammogram. She underwent a left breast, stereotactic mammotome biopsy on 11/24/2015. 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 The ductal carcinoma in situ was noted to be of solid pattern and intermediate nuclear grade and comprised less than 5%the tumor volume. The malignancy was both ER and IA positive (both > 95%, strong) and HER-2 quantified at 1+. The patient then underwent a mastectomy with sentinel lymph node sampling procedure on 12/03/2015. The final pathology demonstrated that within the center portion of the breast there was a 5 mm singlefocus of cancer. Overall grade was 2. Margins were negative. Lymphovascular invasion was not identified. 6 sentinel lymph nodes were removed all were negative for disease. Current therapy:Femara Began arimidex 12/2015. Changed to aromasin 11/2016. Changed to femara 12/14/18. No new concerns today. Appetite:Too good. Wt. stable. Energy level:I don't have much. I get so anxious. Some days I just want to go back to bed. Denies fevers or recent illness. Resp:denies cough or sob Cardiac:denies chest pain/palpitations GI:denies abd pain, n/v, moving bowels regularly :denies dysuria/hematuria Extrem:chronic L shoulder pain, s/p R shoulder replacement, denies pain today Endo:hot flashes I sweat. does not wake pt. at night Neuro:denies symptoms of neuropathy Skin:denies rashes/lesions Heme:denies bleeding The ROS is otherwise negative. Past medical history, appointments, medications, allergies reviewed. No changes. EXAM: BP 149/76 Pulse (!) 58 Temp 36.4 C (97.6 F) (Temporal) Ht 157.5 cm (5' 2) Wt 77.6 kg (171 lb) BMI 31.28 kg/m APPEARANCE Well appearing, alert, in no acute distress, well-hydrated, well nourished. HEART RRR with normal S1 and S2, no murmurs LUNG clear to auscultation BREAST FEMALE R no mass/nodule, L mastectomy scar no nodule LYMPH NODES No cervical lymphadenopathy, No supraclavicular lymphadenopathy, and No axillary lymphadenopathy. ABDOMEN bowel sounds normoactive, soft, non-tender, non-distended, without organomegaly or palpablemasses, no tenderness to palpation EXTREMITIES No edema NEURO Awake, alert and oriented x 3, Normal gait, and No involuntary motions. SKIN Skin color, texture, turgor normal, no suspicious rashes or lesions ASSESSMENT/PLAN: 1. 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 - No concerning findings on exam. - Tolerated aromasin poorly d/t fatigue and crying spells. - Tolerated femara well. - Pt. completed 5 years of AI therapy fall 2020. - Follow up with PCP as scheduled to discuss anxiety. - R mammogram due. - Follow up in one year-pending R mammogram. - Pt. aware to call office with any questions/concerns. The patient indicates understanding of these issues and agrees with the plan. All documentation from previous visit of 11/16/20-Dr. Nelson/myself was copied and pasted, documentation has been reviewed and edited as necessary for today's visit. 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 APRN.MARYANA documented in this encounterSt. Charles Hospital07-08-2022 Miscellaneous Notes* Telephone Encounter - Purnima Galvez LPN - 10/22/2021 2:24 PM EDT Patient returned call and went over results, notes from Ayesha Jefferson MILL HELPER with understanding. * Telephone Encounter - Neha Mcmahon Ma - 10/22/2021 1:55 PM EDT left with patient to contact office for results Neha Mcmahon Ma * Telephone Encounter - Ayesha Jefferson APRN.CNP - 10/22/2021 1:08 PM EDT Please call patient and let her know that her blood work results look fantastic! Not a single red flag or abnormal value. No concerns at all. Thyroid levels are all within normal limits, so the anxious feeling is not related to levothyroxinedosage. Continue current regimen. Thank you, Ayesha Jefferson APRN.CNP documented in this encounterSt. Charles Hospital07-07-2022 Instructions* Patient Instructions* Ayesha Jefferson APRN.CNP - 10/21/2021 2:02 PM EDT Blood work today. Decreased zoloft to 100 mcg daily -- 1 tablet vs 1.5 tablets daily. Follow-up in 6 weeks. documented in this encounterSt. Charles Hospital07-07-2022 History of Present illness Narrative* Ayesha Jefferson APRN.CNP - 10/21/2021 1:20 PM EDT Chief Complaint Patient presents with: Anxiety HPI Ica Senia Bradshaw is a 81 year old female who presents here today for Above Complaints. Ica is an established patient of Dr. Bridger DO. Ica is a new patient to me today. Concerns today... Nervous/anxious: Reports anxious mood swings x a few months. Will wake up in the morning and take her levothyroxine,waits an hour and then takes the rest of her medication... about 1-2 hours after that she will get this anxious mood. Becomes agitated, excessive sweating, and lashes out on in episodes. Pt reports no situation or causal event that leads to episodes. Reports I will get angry and agitation over nothing. Mood and episodes will improve throughout the day. Pt concerned one of her medicationis causing this. Pt also reports wanting to be alone and sleep which is similar to her depression symptoms when she was first diagnosed. Patient is currently taking: (No changes in medications) Levothyroxine 112 mcg daily. Last TSH in february was normal at 2.680. Does report an upset stomach, stomach turning with mood episodes but denies any diarrhea. Denies any hot/cold intolerance or weight changes. Zoloft 150 mg daily. Has been on this regimen for years. Initially started on d/t depression. Pt believes this is the medication that is causing her problems. Femara for breast cancer prevention prescribed by Dr. Negro, oncologist. Has not been taking this x 1 year per pt. Lopressor 37.5 mg daily Pravastatin 40 mg daily No other concerns or complaints at this visit. Past medical history, appointments, medications, allergies reviewed. 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 David Nieto; R reverse total shoulder replacment ARTHROPLASTY TOTAL SHOULDER Left 01/09/2019 Dr. David Nieto @ [facility]; L reverse total shoulder replacement; L distal clavicle resection ARTHRP KNE CONDYLE&PLATU MEDIAL&LAT COMPARTMENTS 2008 Knee replacement, total, bilateral BX BREAST W/DEVICE 1ST LESION STEREOTACTIC GUID Left 11/24/2015 BX/EXC LYMPH NODE OPEN DEEP AXILLARY NODE Left 12/07/2015 CHOLECYSTECTOMY Cholecystectomy INJ RADIOACTIVE TRACER FOR ID OF SENTINEL NODE 12/07/2015 MASTECTOMY, SIMPLE, COMPLETE Left 12/07/2015 TONSILLECTOMY HX Family History FAMILY HISTORY Problem Relation Age of Onset Cancer Mother ? no details, 85 Coronary Artery Disease Father [place], 94 Cancer Sister 57 liver Cancer Brother [...] on File Prior to Visit Medication Sig levothyroxine (LEVOXYL) 112 mcg tablet Take 1 tablet by mouth daily Take on empty stomach. For thyroid. pravastatin (PRAVACHOL) 40 mg tablet Take 1 tablet by mouth daily at bedtime. metoprolol tartrate, short acting, (LOPRESSOR) 25 mg tablet Take 1.5 tablets by mouth twice daily. sertraline (ZOLOFT) 100 mg tablet Take 1.5 tablets by mouth once daily. (Patient taking differently: Take 150 mg by mouth once daily. Taking 1.5 tablets daily ( x1 month) ) letrozole (FEMARA) 2.5 mg tablet Take 1 tablet by mouth once daily. calcium carbonate/vitamin D3 (CALCIUM 600 + D,3, ORAL) Take 1 tablet by mouth once daily. No current facility-administered medications on file prior to visit. Social History Social History Tobacco Use Smoking status: Never Smoker Smokeless tobacco: Never Used Vaping Use Vaping Use: Never used Substance Use Topics Alcohol use: Yes Comment: couple times a week Drug use: No REVIEW OF SYSTEMS: as above Reviewed relevant PMHx, PSHx, Social Hx, current medications and allergies. Review of Symptoms See HPI. All other systems are negative. EXAM: BP 124/64 (BP Site: Right Arm, BP Position: Sitting, BP Cuff Size: Regular Adult) Pulse 68 Resp18 Wt 77.3 kg (170 lb 6.4 oz) BMI (P) 30.96 kg/m General Appearance: Well appearing, alert, in no acute distress, well-hydrated, well nourished.. Skin: Skin color, texture, turgor normal, no suspicious rashes or lesions. Head: Normocephalic, no masses, lesions, tenderness or abnormalities. Neck: Supple, no adenopathy; thyroid symmetric, normal size, no bruits. Lungs: Lungs clear to auscultation. No wheezing, rhonchi, rales.. Heart: RRR without murmur, gallop, or rubs. No ectopy. Neurologic: Gait normal. Reflexes normal and symmetric. Sensation grossly intact.. Health Maintenance List DTAP,TDAP,TD(1 - Tdap) Never done SHINGRIX VACCINE(1 of 2) Never done ADVANCE DIRECTIVE DISCUSSION Never done COVID-19 VACCINE(5 - Booster for Moderna series) due on 06/23/2021 INFLUENZA(1) due on 12/16/2021 FECAL OCCULT BLOOD due on 03/23/2022 DIABETES SCREEN due on 03/15/2024 BONE DENSITY Completed PNEUMOCOCCAL: 65+ Completed ASSESSMENT/PLAN: 1. 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 Concerns for elevated thyroid levels -- may need to decrease levothyroxine dosage if so. - TSH BLD - T3 BLD - T4 FREE/FREE THYROX - CBC - COMP METABOLIC PANEL - VITAMIN B12 BLOOD 2. Excessive sweating - ICD9: 780.8, ICD10: R61 See above. - TSH BLD - T3 BLD - T4 FREE/FREE THYROX - CBC - COMP METABOLIC PANEL - VITAMIN B12 BLOOD 3. Dysthymia - ICD9: 300.4, ICD10: F34.1 Concern for medication side effect vs. Serotonin overload vs worsening anxiety/depression. Discussed options of decreasing Zoloft to see if symptoms resolve related to medication side effect versus adding to anxiety/depression regimen by adding Wellbutrin. Pt would like to get blood work and trial the decreased zoloft first. Will RTO in 6 weeks to reassess. If no improvement, will discuss adding Wellbutrin. Continue current regimen if symptoms worsen with the decreased dosage -- pt agreeable. - SERTRALINE 100 MG TABLET 4. Vitamin D deficiency - ICD9: 268.9, ICD10: E55.9 - VITAMIN D 25 HYDROXY RTO in 6 weeks, sooner if needed. Prescription instructions reviewed with patient as applicable. Potential red flag symptoms discussed with the patient. Reviewed appropriate action plan to take if red flag symptoms occur. Patient agreeable to treatment plan. Ayesha Jefferson APRN.MARYANA [address] [place] [address] documented [facility] Miscellaneous Notes* Telephone Encounter - Danielito Terrell LPN - 10/11/2021 6:34 PM EDT JANINE 09/24/21 NOV no upcoming appt * Telephone Encounter - María Elena Brown - 10/11/2021 4:15 PM EDT Patient has been identified by name and date of : Yes Pending Prescriptions Disp Refills LEVOTHYROXINE 112 MCG TABLET 90 tablet 1 Sig: Take 1 tablet by mouth daily Take on empty stomach. For thyroid. NIC: No RX INSTRUCTIONS: Patient aware RX will be sent to pharmacy. No need to notify patient. María Elena Brown documented in this encounterSt[facility] Miscellaneous Notes* Telephone Encounter - Shira Weaver LPN - 09/29/2021 3:29 PM EDT Spoke with pt and information listed below given. Pt verbalizes understanding. Shira Weaver LPN * Telephone Encounter - Ayesha Jefferson APRN.CNP - 09/29/2021 2:57 PM EDT Please call and let patient know that US of carotid arteries were negative for any significant stenosis. No further work-up needed. Thank you, Ayesha Jefferson APRN.MARYANA documented in this encounterSt[facility]06-[facility]22 Miscellaneous Notes* Telephone Encounter - Randy Aguilera LPN - 09/25/2021 8:23 AM EDT Pt. informed. Randy Aguilera LPN * Telephone Encounter - Radha Jurado APRN.CNP - 09/24/2021 4:50 PM EDT Please let ICA know that the CT of her brain looks good, no concerns. Radha Jurado APRN.CNP documented in this encounterSt. [facility]06-[facility]-2022 Instructions* Patient Instructions* Radha Jurado APRN.CNP - 09/24/2021 1:21 PM EDT Schedule your carotid ultrasound and CT scan. Go to the ED if this happens again! documented in this encounterSt. [facility]06-[facility]22 History of Present illness Narrative* Radha Jurado APRN.CNP - 09/24/2021 1:02 PM EDT Chief Complaint Patient presents with: Neurologic Problem: slurred speech & foggy vision on 09/17 Fatigue Numbness: right leg since 09/17 HPI Ica Senia Bradshaw is a 81 year old female who presents here today for Above Complaints. Today: 1 week ago was out and about. When she got home, was just sitting and doing her regular things. Allof a sudden everything was blurry, unclear. Her asked her a question and she was unable to talk clearly. Voice was very low, modulated, and didn't make any sense. Stayed this way for 10-15 minutes. wanted her to go to ED, but patient refused. Since this episode, has been tired and weak. Right leg has been bothering her- feels pins and needles down the outside of her right leg. No CP, SOB, palpitations. Past medical history, appointments, medications, allergies reviewed. 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 David Nieto; R reverse total shoulder replacment ARTHROPLASTY TOTAL SHOULDER Left 01/09/2019 Dr. David Nieto @ [facility]; L reverse total shoulder replacement; L distal clavicle resection ARTHRP KNE CONDYLE&PLATU MEDIAL&LAT COMPARTMENTS 2009 Knee replacement, total, bilateral BX BREAST W/DEVICE 1ST LESION STEREOTACTIC GUID Left 11/24/2015 BX/EXC LYMPH NODE OPEN DEEP AXILLARY NODE Left 12/07/2015 CHOLECYSTECTOMY Cholecystectomy INJ RADIOACTIVE TRACER FOR ID OF SENTINEL NODE 12/07/2015 MASTECTOMY, SIMPLE, COMPLETE Left 12/07/2015 TONSILLECTOMY HX Family History FAMILY HISTORY Problem Relation Age of Onset Cancer Mother ? no details, 85 Coronary Artery Disease Father [place], 94 Cancer Sister 57 liver Cancer Brother [...] on File Prior to Visit Medication Sig levothyroxine (LEVOXYL) 112 mcg tablet Take 1 tablet by mouth daily Take on empty stomach. For thyroid. pravastatin (PRAVACHOL) 40 mg tablet Take 1 tablet by mouth daily at bedtime. metoprolol tartrate, short acting, (LOPRESSOR) 25 mg tablet Take 1.5 tablets by mouth twice daily. sertraline (ZOLOFT) 100 mg tablet Take 1.5 tablets by mouth once daily. (Patient taking differently: Take 150 mg by mouth once daily. Taking 1.5 tablets daily ( x1 month) ) letrozole (FEMARA) 2.5 mg tablet Take 1 tablet by mouth once daily. calcium carbonate/vitamin D3 (CALCIUM 600 + D,3, ORAL) Take 1 tablet by mouth once daily. No current facility-administered medications on file prior to visit. Social History Social History Tobacco Use Smoking status: Never Smoker Smokeless tobacco: Never Used Vaping Use Vaping Use: Never used Substance Use Topics Alcohol use: Yes Comment: couple times a week Drug use: No Review of Symptoms REVIEW OF SYSTEMS see HPI, otherwise negative EXAM: BP 142/86 (BP Site: Left Arm, BP Position: Sitting, BP Cuff Size: Regular Adult) Pulse (!) 54 Resp 16 Wt 77.1 kg (170 lb) SpO2 97% BMI (P) 30.89 kg/m General Appearance: Well appearing, alert, in no acute distress, well-hydrated, well nourished.. Head: Normocephalic, no masses, lesions, tenderness or abnormalities. Eyes: Anicteric sclera. Pupils are equally round and reactive to light. Extraocular movements are intact. . Ears: External ears normal, canals clear. Neck: Supple, no adenopathy; thyroid symmetric, normal size, no bruits. Lungs: Lungs clear to auscultation. No wheezing, rhonchi, rales.. Heart: RRR without murmur, gallop, or rubs. No ectopy. Abdomen: Normal abdominal exam, Abdomen soft, non-tender. Bowel sounds normal. No masses, organomegaly. Neurologic: Gait normal. Reflexes normal and symmetric. Sensation grossly intact., Visual aguilar: Normal., Oriented X 4. Health Maintenance List DTAP,TDAP,TD(1 - Tdap) Never done SHINGRIX VACCINE(1 of 2) Never done ADVANCE DIRECTIVE DISCUSSION Never done COVID-19 VACCINE(5 - Booster for Moderna series) due on 06/23/2021 FECAL OCCULT BLOOD due on 03/23/2022 DIABETES SCREEN due on 03/15/2024 BONE DENSITY Completed INFLUENZA Completed PNEUMOCOCCAL: 65+ Completed Data reviewed Previous records, office notes ASSESSMENT/PLAN: 1. Transient cerebral ischemia, unspecified type - ICD9: 435.9, ICD10: G45.9 (primary diagnosis) Suspect TIA. Recommend ED for further evaluation. Patient not agreeable to ED visit. Will obtain stat CT brain today. Needs carotid ultrasound. EKG bradycardic, no change from previous. Discussed red flag warning signs with patient and . She has agreed to go to the ED via squadif previous symptoms return. - US CAROTID BILAT - ECG COMPLETE - CT BRAIN WO IVCON - CREATININE BLD 2. Generalized weakness - ICD9: 780.79, ICD10: R53.1 Suspect TIA. Recommend ED for further evaluation. Patient not agreeable to ED visit. Will obtain stat CT brain today. Needs carotid ultrasound. EKG bradycardic, no change from previous. Discussed red flag warning signs with patient and . She has agreed to go to the ED via squadif previous symptoms return. - US CAROTID BILAT - ECG COMPLETE - CT BRAIN WO IVCON - CREATININE BLD 3. Aphasia - ICD9: 784.3, ICD10: R47.01 Suspect TIA. Recommend ED for further evaluation. Patient not agreeable to ED visit. Will obtain stat CT brain today. Needs carotid ultrasound. EKG bradycardic, no change from previous. Discussed red flag warning signs with patient and . She has agreed to go to the ED via squadif previous symptoms return. - US CAROTID BILAT - ECG COMPLETE - CT BRAIN WO IVCON - CREATININE BLD 4. Blurred vision - ICD9: 368.8, ICD10: H53.8 Suspect TIA. Recommend ED for further evaluation. Patient not agreeable to ED visit. Will obtain stat CT brain today. Needs carotid ultrasound. EKG bradycardic, no change from previous. Discussed red flag warning signs with patient and . She has agreed to go to the ED via squadif previous symptoms return. - US CAROTID BILAT - ECG COMPLETE - CT BRAIN WO IVCON - CREATININE BLD Radha Jurado APRN.CNP [facility]* Diagnosis Transient cerebral ischemia, unspecified type- Primary Generalized weakness Other malaise and fatigue Aphasia Blurred vision Other specified visual disturbances [facility] encounter [facility] noteNo assessment information availableWMemorial Hospital Work Phone: Evaluation note* Diagnosis Anxious mood- Primary Anxiety state, unspecified Excessive sweating Generalized hyperhidrosis Dysthymia Dysthymic disorder Vitamin D deficiency Unspecified vitamin D deficiency [facility]* Diagnosis 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 in female, estrogen receptor positive (HCC)- Primary Encounter for screening mammogram for high-risk patient documented [facility]* Diagnosis Anxious mood- Primary Anxiety state, unspecified Osteopenia, senile Disorder of bone and cartilage, unspecified Disorder of bone and articular cartilage Disorder of bone and cartilage, unspecified Disorder of bone density and structure, unspecified Other specified disorders of bone density and structure, multiple sites Dysthymia Dysthymic disorder Vitamin D deficiency Unspecified vitamin D deficiency HYPERTENSION BENIGN Essential hypertension, benign Dyslipidemia Other and unspecified hyperlipidemia Hypothyroidism, acquired Unspecified hypothyroidism Fatigue, unspecified type [facility]* Diagnosis 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 in female, estrogen receptor positive (HCC) Encounter for screening mammogram for high-risk patient documented [facility]* Diagnosis HYPERTENSION BENIGN- Primary Essential hypertension, benign Ear foreign body, left, initial encounter documented [facility]* Diagnosis HYPERTENSION BENIGN- Primary Essential hypertension, benign Encounter for immunization Need for other specified prophylactic vaccination against single bacterial disease PALMA (generalized anxiety disorder) Generalized anxiety disorder Headaches Dyslipidemia Other and unspecified hyperlipidemia Hypothyroidism, acquired Unspecified hypothyroidism Fatigue, unspecified type [facility]* Diagnosis Serum potassium elevated- Primary Hyperpotassemia [facility]* Diagnosis HYPERTENSION BENIGN Essential hypertension, benign [facility]* Diagnosis Vertigo- Primary Dizziness and giddiness [facility]* Diagnosis 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 in female, estrogen receptor positive (HCC)- Primary [facility]* Diagnosis Dysthymia- Primary Dysthymic disorder [facility]* Diagnosis 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 (HCC)- Primary [facility]* Diagnosis Dysthymia Dysthymic disorder [facility]* Diagnosis HYPERTENSION BENIGN Essential hypertension, benign [facility]* Diagnosis Essential hypertension, benign- Primary Dyslipidemia Other and unspecified hyperlipidemia Hypothyroidism, acquired Unspecified hypothyroidism Hyperkalemia Hyperpotassemia Vitamin B12 deficiency Other B-complex deficiencies Vitamin D deficiency Unspecified vitamin D deficiency Hyperglycemia Other abnormal glucose Personal history of alcoholism (HCC) Personal history of alcoholism PALMA (generalized anxiety disorder) Generalized anxiety disorder 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 in female, estrogen receptor positive (HCC) Depression, recurrent (HCC) Major depressive disorder, recurrent episode, unspecified [facility]* Diagnosis HYPERTENSION BENIGN Essential hypertension, benign [facility]* Diagnosis Dysthymia Dysthymic disorder HYPERTENSION BENIGN Essential hypertension, benign [facility]* Diagnosis 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 in female, estrogen receptor positive (HCC)- Primary Encounter for screening mammogram for high-risk patient Depression, recurrent (HCC) Major depressive disorder, recurrent episode, unspecified [facility]* Diagnosis HYPERTENSION BENIGN Essential hypertension, benign [facility]* Diagnosis Dysthymia Dysthymic disorder [facility]* Diagnosis Encounter for immunization- Primary Need for other specified prophylactic vaccination against single bacterial disease [facility] this [facility]* Diagnosis 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 in female, estrogen receptor positive (HCC)- Primary H/O left mastectomy Acquired absence of breast and nipple [facility]* Diagnosis 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 in female, estrogen receptor positive (HCC) Encounter for screening mammogram for high-risk patient [facility]* Diagnosis Dyslipidemia Other and unspecified hyperlipidemia [facility]* Diagnosis Viral URI with cough- Primary Acute upper respiratory infections of unspecified site Exposure to COVID-19 virus [facility]* Diagnosis HYPERTENSION BENIGN Essential hypertension, benign Dysthymia Dysthymic disorder [facility]* Diagnosis Dyslipidemia- Primary Other and unspecified hyperlipidemia Dysthymia Dysthymic disorder Essential hypertension, benign Hypothyroidism, acquired Unspecified hypothyroidism Vitamin D deficiency Unspecified vitamin D deficiency Vitamin B12 deficiency Other B-complex deficiencies Hyperglycemia Other abnormal glucose Depression, recurrent (HCC) Major depressive disorder, recurrent episode, unspecified Personal history of alcoholism (HCC) Personal history of alcoholism 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 in female, estrogen receptor positive (HCC) [facility]* Diagnosis HYPERTENSION BENIGN Essential hypertension, benign [facility]* Diagnosis Dysthymia Dysthymic disorder [facility] this [facility]* Diagnosis Personal history of breast cancer- Primary Personal history of malignant neoplasm of breast Encounter for screening mammogram for high-risk patient [facility]* Diagnosis Acute cough [facility]* Diagnosis Personal history of breast cancer Personal history of malignant neoplasm of breast Encounter for screening mammogram for high-risk patient [facility]* Diagnosis 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 in female, estrogen receptor positive (HCC)- Primary Encounter for screening mammogram for high-risk patient [facility]* Diagnosis HYPERTENSION BENIGN Essential hypertension, benign [facility]* Diagnosis Hypothyroidism, acquired- Primary Unspecified hypothyroidism Dyslipidemia Other and unspecified hyperlipidemia Vitamin D deficiency Unspecified vitamin D deficiency Vitamin B12 deficiency Other B-complex deficiencies [facility]* Diagnosis Dysthymia Dysthymic disorder documented in this encounter [facility]* Diagnosis Hypothyroidism, acquired- Primary Unspecified hypothyroidism HYPERTENSION BENIGN Essential hypertension, benign Need for influenza vaccination Need for prophylactic vaccination and inoculation against influenza Dyslipidemia Other and unspecified hyperlipidemia Dysthymia Dysthymic disorder Need for COVID-19 vaccine Depression, recurrent (HCC) Major depressive disorder, recurrent episode, unspecified Vitamin B12 deficiency Other B-complex deficiencies Vitamin D deficiency Unspecified vitamin D deficiency Hyperglycemia Other abnormal glucose Fatigue, unspecified type [facility]* Diagnosis Dysthymia Dysthymic disorder [facility]* Diagnosis PALMA (generalized anxiety disorder)- Primary Generalized anxiety disorder Dysthymia Dysthymic disorder [facility]* Diagnosis Medicare annual wellness visit, subsequent- Primary Routine general medical examination at a health care facility HYPERTENSION BENIGN Essential hypertension, benign Carotid atherosclerosis, bilateral Palpitations PALMA (generalized anxiety disorder) Generalized anxiety disorder Dysthymia Dysthymic disorder Other chest pain Melena Blood in stool Chronic pain of both knees History of total knee arthroplasty, bilateral Chronic atrial fibrillation (HCC) Atrial fibrillation Atrial fibrillation, unspecified type (HCC) [facility]* Diagnosis Hyperkalemia- Primary Hyperpotassemia documented in this encounter [facility]* Diagnosis HYPERTENSION BENIGN Essential hypertension, benign documented in this encounter [facility]* Diagnosis Dyslipidemia Other and unspecified hyperlipidemia HYPERTENSION BENIGN Essential hypertension, benign documented in this encounter [facility] for referral (narrative)* Diagnostic Procedure Only (Routine) - Authorized Specialty Diagnoses / Procedures Referred By Ebenezer t Referred To Contact [facility] Diagnoses 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 in female, estrogen receptor positive (HCC) Encounter for screening mammogram for high-risk patient Procedures AMBROSE SCREENING W ORACIO SCREENING DIGITAL BREAST TOMOSYNTHESIS BI SCREENING MAMMOGRAPHY BI 2-VIEW BREAST INC Elissa Flores APRN.MAINTENANCE AND CUSTODIAN SUPERVISOR [address] [place] [address] [facility] [address] [place] [address] Referral ID Status Reason Start Date Expiration Date Visits Requested Visits Authorized [id number] Authorized Auto-Generat ed Referral 12/02/2021 01/01/2023 1 1 T [facility] for referral (narrative)* Diagnostic Procedure Only (Routine) - Closed Specialty Diagnoses / Procedures Referred By Contac t Referred To Contact [facility] Diagnoses 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 in female, estrogen receptor positive (HCC) Encounter for screening mammogram for high-risk patient Procedures AMBROSE SCREENING W ORACIO SCREENING DIGITAL BREAST TOMOSYNTHESIS BI SCREENING MAMMOGRAPHY BI 2-VIEW BREAST INC [facility] 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 APRN.MAINTENANCE AND CUSTODIAN SUPERVISOR [address] [place] [address] [facility] [address] [place] [address] Referral ID Status Reason Start Date Expiration Date V isits Requested Visits Authorized [id number] Closed Auto-Generate d Referral 12/02/2021 01/01/2023 1 1 T [facility] for referral (narrative)* Diagnostic Procedure Only (Routine) - Authorized Specialty Diagnoses / Procedures Referred By Contac t Referred To Contact [facility] Diagnoses 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 in female, estrogen receptor positive (HCC) Encounter for screening mammogram for high-risk patient Procedures AMBROSE SCREENING W ORACIO SCREENING DIGITAL BREAST TOMOSYNTHESIS BI SCREENING MAMMOGRAPHY BI 2-VIEW BREAST INC Elissa Flores APRN.MAINTENANCE AND CUSTODIAN SUPERVISOR [address] [place] [address] [facility] [address] [place] [address] Referral ID Status Reason Start Date Expiration Date Visits Requested Visits Authorized [id number] Authorized Auto-Generat ed Referral 12/02/2022 01/01/2024 1 1 T [facility] for referral (narrative)* Diagnostic Procedure Only (Routine) - Closed Specialty Diagnoses / Procedures Referred By Contac t Referred To Contact [facility] Diagnoses 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 in female, estrogen receptor positive (HCC) Encounter for screening mammogram for high-risk patient Procedures AMBROSE SCREENING W ORACIO SCREENING DIGITAL BREAST TOMOSYNTHESIS BI SCREENING MAMMOGRAPHY BI 2-VIEW BREAST INC [facility] 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 APRN.MAINTENANCE AND CUSTODIAN SUPERVISOR [address] [place] [address] [facility] [address] [place] [address] Referral ID Status Reason Start Date Expiration Date V isits Requested Visits Authorized [id number] Closed Auto-Generate d Referral 12/02/2022 01/01/2024 1 1 [facility] for referral (narrative)* Diagnostic Procedure Only (Routine) - Authorized Specialty Diagnoses / Procedures Referred By Contac t Referred To Contact [facility] Diagnoses Personal history of breast cancer Encounter for screening mammogram for high-risk patient Procedures AMBROSE SCREENING W ORACIO SCREENING DIGITAL BREAST TOMOSYNTHESIS BI SCREENING MAMMOGRAPHY BI 2-VIEW BREAST INC Elissa Flores APRN.MAINTENANCE AND CUSTODIAN SUPERVISOR [address] [place] [address] [facility] [address] [place] [address] Referral ID Status Reason Start Date Expiration Date Visits Requested Visits Authorized [id number] Authorized Auto-Generat ed Referral 12/04/2023 01/02/2025 1 1 [facility] for referral (narrative)* Diagnostic Procedure Only (Routine) - Authorized Specialty Diagnoses / Procedures Referred By Contac t Referred To Contact [facility] Diagnoses 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 in female, estrogen receptor positive (HCC) Encounter for screening mammogram for high-risk patient Procedures AMBROSE SCREENING W ORACIO SCREENING DIGITAL BREAST TOMOSYNTHESIS BI SCREENING MAMMOGRAPHY BI 2-VIEW BREAST INC [facility] 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 APRN.MAINTENANCE AND CUSTODIAN SUPERVISOR [address] [place] [address] [facility] [address] [place] [address] Referral ID Status Reason Start Date Expiration Date Visits Requested Visits Authorized [id number] Authorized Auto-Generat ed Referral 01/10/2025 02/09/2025 1 1 [facility] for referral (narrative)No reason for referral information [facility] Phone: Reason for visit Narrative* Diagnostic Procedure Only (Routine) - Closed Specialty Diagnoses / Procedures Referred By Ebenezer morgan Referred To Contact [facility] Diagnoses 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 in female, estrogen receptor positive (HCC) Encounter for screening mammogram for high-risk patient Procedures AMBROSE SCREENING W ORACIO SCREENING DIGITAL BREAST TOMOSYNTHESIS BI SCREENING MAMMOGRAPHY BI 2-VIEW BREAST INC Elissa Flores APRN.MAINTENANCE AND CUSTODIAN SUPERVISOR [address] [place] [address] [facility] [address] [place] [address] Referral ID Status Reason Start Date Expiration Date V isits Requested Visits Authorized [id number] Closed Auto-Generate d Referral 12/02/2021 01/01/2023 1 1 [facility] for visit Narrative* Diagnostic Procedure Only (Routine) - Closed Specialty Diagnoses / Procedures Referred By Ebenezer morgan Referred To Contact [facility] Diagnoses 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 in female, estrogen receptor positive (HCC) Encounter for screening mammogram for high-risk patient Procedures AMBROSE SCREENING W ORACIO SCREENING DIGITAL BREAST TOMOSYNTHESIS BI SCREENING MAMMOGRAPHY BI 2-VIEW BREAST INC Elissa Flores APRN.MAINTENANCE AND CUSTODIAN SUPERVISOR [address] [place] [address] [facility] [address] [place] [address] Referral ID Status Reason Start Date Expiration Date V isits Requested Visits Authorized [id number] Closed Auto-Generate d Referral 12/02/2022 01/01/2024 1 1 [facility] for visit Narrative* Diagnostic Procedure Only (Routine) - Closed Specialty Diagnoses / Procedures Referred By Ebenezer morgan Referred To Contact [facility] Diagnoses Personal history of breast cancer Encounter for screening mammogram for high-risk patient Procedures AMBROSE SCREENING W ORACIO SCREENING DIGITAL BREAST TOMOSYNTHESIS BI SCREENING MAMMOGRAPHY BI 2-VIEW BREAST INC CAD 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, 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 [address] [place] [address] [facility] [address] [place] [address] Referral ID Status Reason Start Date Expiration Date V isits Requested Visits Authorized [id number] Closed Auto-Generate d Referral 12/04/2023 01/02/[address] [facility] Reason for Referral Specialty Diagnoses / Procedures Referred By Contac t Referred To Contact CT IMAGING Diagnoses Transient cerebral ischemia, unspecified type Generalized weakness Aphasia Blurred vision Procedures CT BRAIN WO IVCON CT HEAD/BRAIN W/O CONTRAST MATERIAL Radha Jurado, 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 [address] [place] [address] Ct Imaging Referral ID Status Reason Start Date Expiration Date Visits Requested Visits Authorized [id number] Pending Review Auto-Generat ed Referral 09/24/2021 10/24/2022 1 1 Specialty Diagnoses / Procedures Referred By Contac t Referred [facility] Diagnoses Transient cerebral ischemia, unspecified type Generalized weakness Aphasia Blurred vision Procedures ECG COMPLETE ECG ROUTINE ECG W/LEAST 12 LDS W/I&R Radha Jurado, 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 [address] [place] [address] [facility] [place] [address] [place] [address] Referral ID Status Reason Start Date Expiration Date V isits Requested Visits Authorized [id number] Closed Auto-Generate d Referral 09/24/2021 09/24/2022 1 1 Specialty Diagnoses / Procedures Referred By Contac t Referred To Contact [facility] Diagnoses Transient cerebral ischemia, unspecified type Generalized weakness Aphasia Blurred vision Procedures US CAROTID BILAT Radha Jurado, 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 [address] [place] [address] [facility] Referral ID Status Reason Start Date Expiration Date Visits Requested Visits Authorized [id number] Authorized Auto-Generat ed Referral 09/24/2021 10/24/2022 1 1 Specialty Diagnoses / Procedures Referred By Contac t Referred To Contact Diagnoses 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 in female, estrogen receptor positive (HCC) Procedures BREAST PROSTHESIS, MASTECTOMY BRA 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, 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 [address] [place] [address] Referral ID Status Reason Start Date Expiration Date V isits Requested Visits Authorized [id number] Closed PCP Requested Referral 05/03/2022 08/01/2022 1 1 Specialty Diagnoses / Procedures Referred By Contac t Referred To Contact Diagnoses 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 (HCC) Procedures BREAST PROSTHESIS, MASTECTOMY BRA 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, 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 [address] [place] [address] Referral ID Status Reason Start Date Expiration Date V isits Requested Visits Authorized [id number] Closed PCP Requested Referral 05/16/2022 08/14/2022 1 1 Specialty Diagnoses / Procedures Referred By Contac t Referred To Contact Diagnoses 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 (HCC) Procedures BREAST PROSTHESIS, SILICONE 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, 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 [address] [place] [address] Referral ID Status Reason Start Date Expiration Date V isits Requested Visits Authorized [id number] Closed PCP Requested Referral 05/16/2022 08/14/2022 1 1 Chief Complaint and Reason for Visit Chief Complaint WEAKNESS, APHASIA, B LURRED VISION Chief Complaint Admit Date AFIB (SPARKS) October 15, 2024 1:09p m Chief Complaint Admit Date AFIB (SPARKS) October 15, 2024 1:09p m 2 WK FU/See Clinical Note December 12 025 8:28am Reason for Visit Admit Date Carotid atherosclerosis October 15, 2024 1 :09pm Hyperlipidemia October 15, 2024 1:09p m Chronic atrial fibrillation October 15 1:09pm Hypertension October 15, 2024 1:09p m Carotid atherosclerosis December 12 8:28am HELM (dyspnea on exertion) December 12 2 025 8:28am Fatigue December 12, 2024 8: 28am Hyperlipidemia December 12, 2024 8: 28am Chronic atrial fibrillation December 12, 2024 8:28am Hypertension December 12, 2024 8: 28am Chief Complaint Admit Date AFIB (SPARKS) October 15, 2024 1:09p m 2 WK FU/See Clinical Note December 12 8:28am FATIGUE, HELM January 13, 2025 7:02am FATIGUE, HELM January 13, 2025 6:47pm 6 W FU January 16, 2025 10 :32am Reason for Visit Admit Date Carotid atherosclerosis October 15, 2024 1 :09pm Hyperlipidemia October 15, 2024 1:09p m Chronic atrial fibrillation October 15 1:09pm Hypertension October 15, 2024 1:09p m Carotid atherosclerosis December 12 8:28am HELM (dyspnea on exertion) December 12 8:28am Fatigue December 12, 2024 8: 28am Hyperlipidemia December 12, 2024 8: 28am Chronic atrial fibrillation December 12, 2024 8:28am Hypertension December 12, 2024 8: 28am Paroxysmal atrial fibrillation January 162024 10:32am Chief Complaint Admit Date AFIB (SPARKS) October 15, 2024 1:09p m 2 WK FU/See Clinical Note December 12 8:28am FATIGUE, HELM January 13, 2025 7:02am FATIGUE, HELM January 13, 2025 6:47pm 6 W FU January 16, 2025 10 :32am INT LAB ORDERS January 16, 2025 11 :18am Reason for Visit Admit Date Carotid atherosclerosis October 15, 2024 1 :09pm Hyperlipidemia October 15, 2024 1:09p m Chronic atrial fibrillation October 15 1:09pm Hypertension October 15, 2024 1:09p m Carotid atherosclerosis December 12 8:28am HELM (dyspnea on exertion) December 12 8:28am Fatigue December 12, 2024 8: 28am Hyperlipidemia December 12, 2024 8: 28am Chronic atrial fibrillation December 12, 2024 8:28am Hypertension December 12, 2024 8: 28am Hyperlipidemia January 16, 2025 10 :32am Paroxysmal atrial fibrillation January 162024 10:32am Hypertension January 16, 2025 10 :32am Chief Complaint Admit Date AFIB (SPARKS) October 15, 2024 1:09p m 2 WK FU/See Clinical Note December 12 8:28am FATIGUE, HELM January 13, 2025 7:02am FATIGUE, HELM January 13, 2025 6:47pm 6 W FU January 16, 2025 10 :32am INT LAB ORDERS January 16, 2025 11 :18am DCCV 01/28/25 January 20, 2025 12 :56pm Advance Directives No Advanced Directives Records Found Advance Directive Response Recorded Date/ Time Advance Directives Yes December 07, 2015 12:05pm Living Will Yes June 10 5:52pm Power of Supervisor Locomotive Yes June 10, 2019 5:52pm Advance Directive Response Recorded Date/ Time Advance Directives Yes December 07, 2015 12:05pm Summary Purpose Family History No Family History Records Found Relationship Condition Age at Onset Recorded Date/T dayron mother Malignant neoplasm Unknown father Coronary artery disease Unknown Myocardial infarction Unknown sister Malignant neoplasm Unknown brother Malignant neoplasm Unknown Cardiac disease Unknown Health Concerns Infection Onset Date Last Indicated Resolved Time COVID-19 Confirmed 06/29/2023 06/29/2023 Additional Source Comments Source Comments (unrecognize d section and content) In the event this informatio n is protected by the Federal Confidentiality of Alcohol and Drug Abuse Patient Records regulations: The Federal rules restrict any use of the information to criminally investigate or prosecute any alcohol or drug abuse patient.[facility] event this information is protected by the Federal Confidentiality of Alcohol and Drug Abuse Patient Records regulations: The Federal rules restrict any use of the information to criminally investigate or prosecute any alcohol or drug abuse patient.[facility] the event this information is protected by the Federal Confidentiality of Alcohol and Drug Abuse Patient Records regulations: The Federal rules restrict any use of the information to criminally investigate or prosecute any alcohol or drug abuse patient.[facility] the event this information is protected by the Federal Confidentiality of Alcohol and Drug Abuse Patient Records regulations: The Federal rules restrict any use of the information to criminally investigate or prosecute any alcohol or drug abuse patient.[facility] the event this information is protected by the Federal Confidentiality of Alcohol and Drug Abuse Patient Records regulations: The Federal rules restrict any use of the information to criminally investigate or prosecute any alcohol or drug abuse patient.[facility] the event this information is protected by the Federal Confidentiality of Alcohol and Drug Abuse Patient Records regulations: The Federal rules restrict any use of the information to criminally investigate or prosecute any alcohol or drug abuse patient.[facility] the event this information is protected by the Federal Confidentiality of Alcohol and Drug Abuse Patient Records regulations: The Federal rules restrict any use of the information to criminally investigate or prosecute any alcohol or drug abuse patient.[facility] the event this information is protected by the Federal Confidentiality of Alcohol and Drug Abuse Patient Records regulations: The Federal rules restrict any use of the information to criminally investigate or prosecute any alcohol or drug abuse patient.[facility] the event this information is protected by the Federal Confidentiality of Alcohol and Drug Abuse Patient Records regulations: The Federal rules restrict any use of the information to criminally investigate or prosecute any alcohol or drug abuse patient.[facility] the event this information is protected by the Federal Confidentiality of Alcohol and Drug Abuse Patient Records regulations: The Federal rules restrict any use of the information to criminally investigate or prosecute any alcohol or drug abuse patient.[facility] the event this information is protected by the Federal Confidentiality of Alcohol and Drug Abuse Patient Records regulations: The Federal rules restrict any use of the information to criminally investigate or prosecute any alcohol or drug abuse patient.[facility] the event this information is protected by the Federal Confidentiality of Alcohol and Drug Abuse Patient Records regulations: The Federal rules restrict any use of the information to criminally investigate or prosecute any alcohol or drug abuse patient.[facility] the event this information is protected by the Federal Confidentiality of Alcohol and Drug Abuse Patient Records regulations: The Federal rules restrict any use of the information to criminally investigate or prosecute any alcohol or drug abuse patient.[facility] the event this information is protected by the Federal Confidentiality of Alcohol and Drug Abuse Patient Records regulations: The Federal rules restrict any use of the information to criminally investigate or prosecute any alcohol or drug abuse patient.[facility] the event this information is protected by the Federal Confidentiality of Alcohol and Drug Abuse Patient Records regulations: The Federal rules restrict any use of the information to criminally investigate or prosecute any alcohol or drug abuse patient.[facility] the event this information is protected by the Federal Confidentiality of Alcohol and Drug Abuse Patient Records regulations: The Federal rules restrict any use of the information to criminally investigate or prosecute any alcohol or drug abuse patient.[facility] the event this information is protected by the Federal Confidentiality of Alcohol and Drug Abuse Patient Records regulations: The Federal rules restrict any use of the information to criminally investigate or prosecute any alcohol or drug abuse patient.[facility] the event this information is protected by the Federal Confidentiality of Alcohol and Drug Abuse Patient Records regulations: The Federal rules restrict any use of the information to criminally investigate or prosecute any alcohol or drug abuse patient.[facility] the event this information is protected by the Federal Confidentiality of Alcohol and Drug Abuse Patient Records regulations: The Federal rules restrict any use of the information to criminally investigate or prosecute any alcohol or drug abuse patient.[facility] the event this information is protected by the Federal Confidentiality of Alcohol and Drug Abuse Patient Records regulations: The Federal rules restrict any use of the information to criminally investigate or prosecute any alcohol or drug abuse patient.[facility] the event this information is protected by the Federal Confidentiality of Alcohol and Drug Abuse Patient Records regulations: The Federal rules restrict any use of the information to criminally investigate or prosecute any alcohol or drug abuse patient.[facility] the event this information is protected by the Federal Confidentiality of Alcohol and Drug Abuse Patient Records regulations: The Federal rules restrict any use of the information to criminally investigate or prosecute any alcohol or drug abuse patient.[facility] the event this information is protected by the Federal Confidentiality of Alcohol and Drug Abuse Patient Records regulations: The Federal rules restrict any use of the information to criminally investigate or prosecute any alcohol or drug abuse patient.[facility] the event this information is protected by the Federal Confidentiality of Alcohol and Drug Abuse Patient Records regulations: The Federal rules restrict any use of the information to criminally investigate or prosecute any alcohol or drug abuse patient.[facility] the event this information is protected by the Federal Confidentiality of Alcohol and Drug Abuse Patient Records regulations: The Federal rules restrict any use of the information to criminally investigate or prosecute any alcohol or drug abuse patient.[facility] the event this information is protected by the Federal Confidentiality of Alcohol and Drug Abuse Patient Records regulations: The Federal rules restrict any use of the information to criminally investigate or prosecute any alcohol or drug abuse patient.[facility] the event this information is protected by the Federal Confidentiality of Alcohol and Drug Abuse Patient Records regulations: The Federal rules restrict any use of the information to criminally investigate or prosecute any alcohol or drug abuse patient.[facility] the event this information is protected by the Federal Confidentiality of Alcohol and Drug Abuse Patient Records regulations: The Federal rules restrict any use of the information to criminally investigate or prosecute any alcohol or drug abuse patient.[facility] the event this information is protected by the Federal Confidentiality of Alcohol and Drug Abuse Patient Records regulations: The Federal rules restrict any use of the information to criminally investigate or prosecute any alcohol or drug abuse patient.[facility]In the event this information is protected by the Federal Confidentiality of Alcohol and Drug Abuse Patient Records regulations: The Federal rules restrict any use of the information to criminally investigate or prosecute any alcohol or drug abuse patient.[facility]In the event this information is protected by the Federal Confidentiality of Alcohol and Drug Abuse Patient Records regulations: The Federal rules restrict any use of the information to criminally investigate or prosecute any alcohol or drug abuse patient.[facility]In the event this information is protected by the Federal Confidentiality of Alcohol and Drug Abuse Patient Records regulations: The Federal rules restrict any use of the information to criminally investigate or prosecute any alcohol or drug abuse patient.[facility] the event this information is protected by the Federal Confidentiality of Alcohol and Drug Abuse Patient Records regulations: The Federal rules restrict any use of the information to criminally investigate or prosecute any alcohol or drug abuse patient.[facility]In the event this information is protected by the Federal Confidentiality of Alcohol and Drug Abuse Patient Records regulations: The Federal rules restrict any use of the information to criminally investigate or prosecute any alcohol or drug abuse patient.[facility]In the event this information is protected by the Federal Confidentiality of Alcohol and Drug Abuse Patient Records regulations: The Federal rules restrict any use of the information to criminally investigate or prosecute any alcohol or drug abuse patient.[facility]In the event this information is protected by the Federal Confidentiality of Alcohol and Drug Abuse Patient Records regulations: The Federal rules restrict any use of the information to criminally investigate or prosecute any alcohol or drug abuse patient.[facility]In the event this information is protected by the Federal Confidentiality of Alcohol and Drug Abuse Patient Records regulations: The Federal rules restrict any use of the information to criminally investigate or prosecute any alcohol or drug abuse patient.[facility] HospitalIn the event this information is protected by the Federal Confidentiality of Alcohol and Drug Abuse Patient Records regulations: The Federal rules restrict any use of the information to criminally investigate or prosecute any alcohol or drug abuse patient.[facility] HospitalIn the event this information is protected by the Federal Confidentiality of Alcohol and Drug Abuse Patient Records regulations: The Federal rules restrict any use of the information to criminally investigate or prosecute any alcohol or drug abuse patient.[facility] HospitalIn the event this information is protected by the Federal Confidentiality of Alcohol and Drug Abuse Patient Records regulations: The Federal rules restrict any use of the information to criminally investigate or prosecute any alcohol or drug abuse patient.[facility] HospitalIn the event this information is protected by the Federal Confidentiality of Alcohol and Drug Abuse Patient Records regulations: The Federal rules restrict any use of the information to criminally investigate or prosecute any alcohol or drug abuse patient.[facility] HospitalIn the event this information is protected by the Federal Confidentiality of Alcohol and Drug Abuse Patient Records regulations: The Federal rules restrict any use of the information to criminally investigate or prosecute any alcohol or drug abuse patient.[facility] HospitalIn the event this information is protected by the Federal Confidentiality of Alcohol and Drug Abuse Patient Records regulations: The Federal rules restrict any use of the information to criminally investigate or prosecute any alcohol or drug abuse patient.[facility] HospitalIn the event this information is protected by the Federal Confidentiality of Alcohol and Drug Abuse Patient Records regulations: The Federal rules restrict any use of the information to criminally investigate or prosecute any alcohol or drug abuse patient.[facility] HospitalIn the event this information is protected by the Federal Confidentiality of Alcohol and Drug Abuse Patient Records regulations: The Federal rules restrict any use of the information to criminally investigate or prosecute any alcohol or drug abuse patient.[facility] HospitalIn the event this information is protected by the Federal Confidentiality of Alcohol and Drug Abuse Patient Records regulations: The Federal rules restrict any use of the information to criminally investigate or prosecute any alcohol or drug abuse patient.[facility] HospitalIn the event this information is protected by the Federal Confidentiality of Alcohol and Drug Abuse Patient Records regulations: The Federal rules restrict any use of the information to criminally investigate or prosecute any alcohol or drug abuse patient.[facility] HospitalIn the event this information is protected by the Federal Confidentiality of Alcohol and Drug Abuse Patient Records regulations: The Federal rules restrict any use of the information to criminally investigate or prosecute any alcohol or drug abuse patient.[facility] HospitalIn the event this information is protected by the Federal Confidentiality of Alcohol and Drug Abuse Patient Records regulations: The Federal rules restrict any use of the information to criminally investigate or prosecute any alcohol or drug abuse patient.[facility] HospitalIn the event this information is protected by the Federal Confidentiality of Alcohol and Drug Abuse Patient Records regulations: The Federal rules restrict any use of the information to criminally investigate or prosecute any alcohol or drug abuse patient.[facility] HospitalIn the event this information is protected by the Federal Confidentiality of Alcohol and Drug Abuse Patient Records regulations: The Federal rules restrict any use of the information to criminally investigate or prosecute any alcohol or drug abuse patient.[facility] HospitalIn the event this information is protected by the Federal Confidentiality of Alcohol and Drug Abuse Patient Records regulations: The Federal rules restrict any use of the information to criminally investigate or prosecute any alcohol or drug abuse patient.[facility] HospitalIn the event this information is protected by the Federal Confidentiality of Alcohol and Drug Abuse Patient Records regulations: The Federal rules restrict any use of the information to criminally investigate or prosecute any alcohol or drug abuse patient.[facility] HospitalIn the event this information is protected by the Federal Confidentiality of Alcohol and Drug Abuse Patient Records regulations: The Federal rules restrict any use of the information to criminally investigate or prosecute any alcohol or drug abuse patient.[facility] HospitalIn the event this information is protected by the Federal Confidentiality of Alcohol and Drug Abuse Patient Records regulations: The Federal rules restrict any use of the information to criminally investigate or prosecute any alcohol or drug abuse patient.[facility] HospitalIn the event this information is protected by the Federal Confidentiality of Alcohol and Drug Abuse Patient Records regulations: The Federal rules restrict any use of the information to criminally investigate or prosecute any alcohol or drug abuse patient.[facility] HospitalIn the event this information is protected by the Federal Confidentiality of Alcohol and Drug Abuse Patient Records regulations: The Federal rules restrict any use of the information to criminally investigate or prosecute any alcohol or drug abuse patient.[facility] HospitalIn the event this information is protected by the Federal Confidentiality of Alcohol and Drug Abuse Patient Records regulations: The Federal rules restrict any use of the information to criminally investigate or prosecute any alcohol or drug abuse patient.[facility] HospitalIn the event this information is protected by the Federal Confidentiality of Alcohol and Drug Abuse Patient Records regulations: The Federal rules restrict any use of the information to criminally investigate or prosecute any alcohol or drug abuse patient.[facility] HospitalIn the event this information is protected by the Federal Confidentiality of Alcohol and Drug Abuse Patient Records regulations: The Federal rules restrict any use of the information to criminally investigate or prosecute any alcohol or drug abuse patient.[facility] HospitalIn the event this information is protected by the Federal Confidentiality of Alcohol and Drug Abuse Patient Records regulations: The Federal rules restrict any use of the information to criminally investigate or prosecute any alcohol or drug abuse patient.[facility] HospitalIn the event this information is protected by the Federal Confidentiality of Alcohol and Drug Abuse Patient Records regulations: The Federal rules restrict any use of the information to criminally investigate or prosecute any alcohol or drug abuse patient.[facility] HospitalIn the event this information is protected by the Federal Confidentiality of Alcohol and Drug Abuse Patient Records regulations: The Federal rules restrict any use of the information to criminally investigate or prosecute any alcohol or drug abuse patient.[facility] HospitalIn the event this information is protected by the Federal Confidentiality of Alcohol and Drug Abuse Patient Records regulations: The Federal rules restrict any use of the information to criminally investigate or prosecute any alcohol or drug abuse patient.[facility] HospitalIn the event this information is protected by the Federal Confidentiality of Alcohol and Drug Abuse Patient Records regulations: The Federal rules restrict any use of the information to criminally investigate or prosecute any alcohol or drug abuse patient.[facility] HospitalIn the event this information is protected by the Federal Confidentiality of Alcohol and Drug Abuse Patient Records regulations: The Federal rules restrict any use of the information to criminally investigate or prosecute any alcohol or drug abuse patient.[facility] HospitalIn the event this information is protected by the Federal Confidentiality of Alcohol and Drug Abuse Patient Records regulations: The Federal rules restrict any use of the information to criminally investigate or prosecute any alcohol or drug abuse patient.[facility] HospitalIn the event this information is protected by the Federal Confidentiality of Alcohol and Drug Abuse Patient Records regulations: The Federal rules restrict any use of the information to criminally investigate or prosecute any alcohol or drug abuse patient.[facility] HospitalIn the event this information is protected by the Federal Confidentiality of Alcohol and Drug Abuse Patient Records regulations: The Federal rules restrict any use of the information to criminally investigate or prosecute any alcohol or drug abuse patient.[facility] HospitalIn the event this information is protected by the Federal Confidentiality of Alcohol and Drug Abuse Patient Records regulations: The Federal rules restrict any use of the information to criminally investigate or prosecute any alcohol or drug abuse patient.[facility] HospitalIn the event this information is protected by the Federal Confidentiality of Alcohol and Drug Abuse Patient Records regulations: The Federal rules restrict any use of the information to criminally investigate or prosecute any alcohol or drug abuse patient.[facility] HospitalIn the event this information is protected by the Federal Confidentiality of Alcohol and Drug Abuse Patient Records regulations: The Federal rules restrict any use of the information to criminally investigate or prosecute any alcohol or drug abuse patient.[facility] HospitalIn the event this information is protected by the Federal Confidentiality of Alcohol and Drug Abuse Patient Records regulations: The Federal rules restrict any use of the information to criminally investigate or prosecute any alcohol or drug abuse patient.[facility] HospitalIn the event this information is protected by the Federal Confidentiality of Alcohol and Drug Abuse Patient Records regulations: The Federal rules restrict any use of the information to criminally investigate or prosecute any alcohol or drug abuse patient.[facility] HospitalIn the event this information is protected by the Federal Confidentiality of Alcohol and Drug Abuse Patient Records regulations: The Federal rules restrict any use of the information to criminally investigate or prosecute any alcohol or drug abuse patient.[facility] HospitalIn the event this information is protected by the Federal Confidentiality of Alcohol and Drug Abuse Patient Records regulations: The Federal rules restrict any use of the information to criminally investigate or prosecute any alcohol or drug abuse patient.[facility] HospitalIn the event this information is protected by the Federal Confidentiality of Alcohol and Drug Abuse Patient Records regulations: The Federal rules restrict any use of the information to criminally investigate or prosecute any alcohol or drug abuse patient.[facility] HospitalIn the event this information is protected by the Federal Confidentiality of Alcohol and Drug Abuse Patient Records regulations: The Federal rules restrict any use of the information to criminally investigate or prosecute any alcohol or drug abuse patient.[facility] HospitalIn the event this information is protected by the Federal Confidentiality of Alcohol and Drug Abuse Patient Records regulations: The Federal rules restrict any use of the information to criminally investigate or prosecute any alcohol or drug abuse patient.[facility] HospitalIn the event this information is protected by the Federal Confidentiality of Alcohol and Drug Abuse Patient Records regulations: The Federal rules restrict any use of the information to criminally investigate or prosecute any alcohol or drug abuse patient.[facility] HospitalIn the event this information is protected by the Federal Confidentiality of Alcohol and Drug Abuse Patient Records regulations: The Federal rules restrict any use of the information to criminally investigate or prosecute any alcohol or drug abuse patient.[facility] HospitalIn the event this information is protected by the Federal Confidentiality of Alcohol and Drug Abuse Patient Records regulations: The Federal rules restrict any use of the information to criminally investigate or prosecute any alcohol or drug abuse patient.[facility] HospitalIn the event this information is protected by the Federal Confidentiality of Alcohol and Drug Abuse Patient Records regulations: The Federal rules restrict any use of the information to criminally investigate or prosecute any alcohol or drug abuse patient.[facility] HospitalIn the event this information is protected by the Federal Confidentiality of Alcohol and Drug Abuse Patient Records regulations: The Federal rules restrict any use of the information to criminally investigate or prosecute any alcohol or drug abuse patient.[facility] HospitalIn the event this information is protected by the Federal Confidentiality of Alcohol and Drug Abuse Patient Records regulations: The Federal rules restrict any use of the information to criminally investigate or prosecute any alcohol or drug abuse patient.[facility] HospitalIn the event this information is protected by the Federal Confidentiality of Alcohol and Drug Abuse Patient Records regulations: The Federal rules restrict any use of the information to criminally investigate or prosecute any alcohol or drug abuse patient.[facility] HospitalIn the event this information is protected by the Federal Confidentiality of Alcohol and Drug Abuse Patient Records regulations: The Federal rules restrict any use of the information to criminally investigate or prosecute any alcohol or drug abuse patient.[facility] HospitalIn the event this information is protected by the Federal Confidentiality of Alcohol and Drug Abuse Patient Records regulations: The Federal rules restrict any use of the information to criminally investigate or prosecute any alcohol or drug abuse patient.[facility] HospitalIn the event this information is protected by the Federal Confidentiality of Alcohol and Drug Abuse Patient Records regulations: The Federal rules restrict any use of the information to criminally investigate or prosecute any alcohol or drug abuse patient.[facility] HospitalIn the event this information is protected by the Federal Confidentiality of Alcohol and Drug Abuse Patient Records regulations: The Federal rules restrict any use of the information to criminally investigate or prosecute any alcohol or drug abuse patient.[facility] HospitalIn the event this information is protected by the Federal Confidentiality of Alcohol and Drug Abuse Patient Records regulations: The Federal rules restrict any use of the information to criminally investigate or prosecute any alcohol or drug abuse patient.[facility] HospitalIn the event this information is protected by the Federal Confidentiality of Alcohol and Drug Abuse Patient Records regulations: The Federal rules restrict any use of the information to criminally investigate or prosecute any alcohol or drug abuse patient.[facility] HospitalIn the event this information is protected by the Federal Confidentiality of Alcohol and Drug Abuse Patient Records regulations: The Federal rules restrict any use of the information to criminally investigate or prosecute any alcohol or drug abuse patient.[facility] HospitalIn the event this information is protected by the Federal Confidentiality of Alcohol and Drug Abuse Patient Records regulations: The Federal rules restrict any use of the information to criminally investigate or prosecute any alcohol or drug abuse patient.[facility] HospitalIn the event this information is protected by the Federal Confidentiality of Alcohol and Drug Abuse Patient Records regulations: The Federal rules restrict any use of the information to criminally investigate or prosecute any alcohol or drug abuse patient.[facility] HospitalIn the event this information is protected by the Federal Confidentiality of Alcohol and Drug Abuse Patient Records regulations: The Federal rules restrict any use of the information to criminally investigate or prosecute any alcohol or drug abuse patient.[facility] HospitalIn the event this information is protected by the Federal Confidentiality of Alcohol and Drug Abuse Patient Records regulations: The Federal rules restrict any use of the information to criminally investigate or prosecute any alcohol or drug abuse patient.[facility] HospitalIn the event this information is protected by the Federal Confidentiality of Alcohol and Drug Abuse Patient Records regulations: The Federal rules restrict any use of the information to criminally investigate or prosecute any alcohol or drug abuse patient.[facility] Reason for Visit (unrecogniz ed section and content) Reason Comments Neurologic Problem slurred speech & fog gy vision on 09/17 Fatigue Numbness right leg since 09/17 Reason Comments Results Reason Onset Date Comments Refill Request 10/11/2021 Reason Comments Anxiety Reason Comments Established Patient Reason Comments Mood Reason Comments Acute Visit LANE, and elevated BP Reason Comments Hypertension Reason Comments Headache Hypertension Reason Comments BP Check Reason Onset Date Comments Refill Request 04/25/2022 Reason Onset Date Comments cdm 04/27/2022 enrollment Reason Comments Orders Reason Comments Mood Swings Reason Comments Insurance Authorization Reason Comments Depression Reason Onset Date Comments community monitoring outreach 07/06/2022 CD M telephonic Reason Comments Refill Request Reason Comments Patient Update Reason Onset Date Comments community monitoring outreach 08/03/2022 CD M telephonic Reason Comments Follow Up Reason Onset Date Comments community monitoring outreach 08/18/2022 CD M telephonic Reason Onset Date Comments community monitoring outreach 09/15/2022 CD M telephonic Reason Onset Date Comments Refill Request 09/28/2022 Reason Onset Date Comments Refill Request 10/04/2022 Reason Onset Date Comments community monitoring outreach 10/14/2022 CD M telephonic Reason Onset Date Comments community monitoring outreach 11/11/2022 CD M telephonic Reason Onset Date Comments Refill Request 12/05/2022 Reason Onset Date Comments community monitoring outreach 12/06/2022 CD M telephonic Reason Onset Date Comments community monitoring outreach 01/03/2023 CD M telephonic Reason Onset Date Comments Refill Request 01/06/2023 Reason Onset Date Comments community monitoring outreach 01/31/2023 CD M telephonic Reason Onset Date Comments Refill Request 02/01/2023 Reason Onset Date Comments community monitoring outreach 03/21/2023 CD M telephonic Reason Onset Date Comments community monitoring outreach 05/23/2023 CD M telephonic Reason Comments Cough X 1 week with + COVI D exposure spouse at [facility] Sunday 06/25 Reason Onset Date Comments community monitoring outreach 07/05/2023 CD M telephonic Reason Onset Date Comments community monitoring outreach 08/02/2023 CD M telephonic Reason Onset Date Comments Refill Request 08/02/2023 Reason Onset Date Comments community monitoring outreach 08/16/2023 CD M telephonc Reason Comments 6 Month Exam Reason Onset Date Comments community monitoring outreach 09/13/2023 CD M telephonic Reason Onset Date Comments Refill Request 09/13/2023 Reason Onset Date Comments community monitoring outreach 10/11/2023 CD M telephonic Reason Onset Date Comments Refill Request 10/20/2023 Reason Onset Date Comments community monitoring outreach 10/26/2023 CD M telephonic Reason Onset Date Comments Refill Request 11/17/2023 Reason Onset Date Comments community monitoring outreach 11/23/2023 CD M telephonic Reason Onset Date Comments community monitoring outreach 12/20/2023 CD M telephonic Reason Onset Date Comments community monitoring outreach 12/29/2023 CD M telephonic Reason Onset Date Comments community monitoring outreach 01/27/2024 CD M telephonic Reason Onset Date Comments Refill Request 02/09/2024 Reason Comments Lab Orders Reason Comments Med Change Request Reason Onset Date Comments 6 Month Exam Immunizations 02/26/2024 Flu vaccination Reason Comments Medication Problem Reason Comments clarify directions on Sertraline 100 mg rx Reason Onset Date Comments Population Health Navigation Outreach 07/10/2024 Healthy at Home - [facility] [place] Reason Comments Medicare Wellness Exam Reason Comments Medication Problem cost of Eliquis Reason Onset Date Comments Results 09/12/2024 Reason Onset Date Comments Refill Request 09/18/2024 Reason Comments Medication Request Reason Onset Date Comments Refill Request 11/05/2024 Reason Onset Date Comments Population Health Navigation Outreach 12/17/2024 [place] Care Teams (unrecognized sec tion and content) [employer] Relationship Specialty Start Date End Date Vini Sparks DO [address] [place] [address] PCP - General Family Practice 08/24/16 [employer] Relationship Specialty Start Date End Date Vini Sparks DO [address] [place] [address] PCP - General Family Practice 08/24/16 [employer]er Relationship Specialty Start Date End Date Vini Sparks DO [address] [place] [address] PCP - General Family Practice 08/24/16 Railroad [employer]er Relationship Specialty Start Date End Date Vini Sparks, DO [address] [place] [address] PCP - General Family Practice 08/24/16 Railroad Car [employer]er Relationship Specialty Start Date End Date Vini Sparks, DO [address] [place] [address] PCP - General Family Practice 08/24/16 Railroad [employer]er Relationship Specialty Start Date End Date Vini Sparks, DO [address] [place] [address] PCP - General Family Practice 08/24/16 Railroad [employer]er Relationship Specialty Start Date End Date Vini Sparks, DO [address] [place] [address] PCP - General Family Practice 08/24/16 Railroad [employer]er Relationship Specialty Start Date End Date Vini Sparks, DO [address] [place] [address] PCP - General Family Practice 08/24/16 Railroad [employer]er Relationship Specialty Start Date End Date Vini Sparks, DO [address] [place] [address] PCP - General Family Practice 08/24/16 Railroad Car [employer]er Relationship Specialty Start Date End Date Vini Sparks, DO [address] [place] [address] PCP - General Family Practice 08/24/16 Railroad [employer]er Relationship Specialty Start Date End Date Vini Sparks, DO [address] [place] [address] PCP - General Family Medicine 08/24/16 [employer]er Relationship Specialty Start Date End Date Vini Sparks, DO [address] [place] [address] PCP - General Family Medicine 08/24/16 Railroad Car [employer]er Relationship Specialty Start Date End Date Vini Sparks, DO [address] [place] [address] PCP - General Family Medicine 08/24/16 Railroad [employer]er Relationship Specialty Start Date End Date Vini Sparks, DO [address] [place] [address] PCP - General Family Medicine 08/24/16 Railroad [employer]er Relationship Specialty Start Date End Date Vini Sparks, DO [address] [place] [address] PCP - General Family Medicine 08/24/16 [employer]er Relationship Specialty Start Date End Date Vini Sparks, DO [address] [place] [address] PCP - General Family Medicine 08/24/16 Owen Lopez, RN [address] [place] [address] Crystallizer Operator Internal Medicine 04/27/22 Railroad [employer]er Relationship Specialty Start Date End Date Vini Sparks, DO [address] [place] [address] PCP - General Family Medicine 08/24/16 Owen Lopez, RN [address] [place] [address] Crystallizer Operator Internal Medicine 04/27/22 Railroad Car [employer]er Relationship Specialty Start Date End Date Vini Sparks, DO [address] [place] [address] PCP - General Family Medicine 08/24/16 Owen Lopez, RN [address] [place] [address] Crystallizer Operator Internal Medicine 04/27/22 Railroad Car Loader Relationship Specialty Start Date End Date Vini Sparks, DO [address] [place] [address] PCP - General Family Medicine 08/24/16 Owen Lopez, RN [address] [place] [address] Crystallizer Operator Internal Medicine 04/27/22 Railroad Car Loader Relationship Specialty Start Date End Date Vini Sparks, DO [address] [place] [address] PCP - General Family Medicine 08/24/16 Owen Lopez, RN [address] [place] [address] Crystallizer Operator Internal Medicine 04/27/22 Railroad Car Loader Relationship Specialty Start Date End Date Vini Sparks, DO [address] [place] [address] PCP - General Family Medicine 08/24/16 Owen Lopez, RN [address] [place] [address] Crystallizer Operator Internal Medicine 04/27/22 Railroad Car Loader Relationship Specialty Start Date End Date Vini Sparks, DO [address] [place] [address] PCP - General Family Medicine 08/24/16 Owen Lopez, RN [address] [place] [address] Crystallizer Operator Internal Medicine 04/27/22 Railroad Car Loader Relationship Specialty Start Date End Date Vini Sparks, DO [address] [place] [address] PCP - General Family Medicine 08/24/16 Owen Lopez, RN [address] [place] [address] Crystallizer Operator Internal Medicine 04/27/22 Railroad Car Loader Relationship Specialty Start Date End Date Vini Sparks, DO [address] [place] [address] PCP - General Family Medicine 08/24/16 Owen Lopez, RN [address] [place] [address] Crystallizer Operator Internal Medicine 04/27/22 Railroad Car Loader Relationship Specialty Start Date End Date Vini Sparsk, DO [address] [place] [address] PCP - General Family Medicine 08/24/16 Owen Lopez, RN [address] [place] [address] Crystallizer Operator Internal Medicine 04/27/22 Railroad Car Loader Relationship Specialty Start Date End Date Vini Sparks, DO [address] [place] [address] PCP - General Family Medicine 08/24/16 Owen Lopez, RN [address] [place] [address] Crystallizer Operator Internal Medicine 04/27/22 Railroad Car Loader Relationship Specialty Start Date End Date Vini Sparks, DO [address] [place] [address] PCP - General Family Medicine 08/24/16 Owen Lopez, RN [address] [place] [address] Crystallizer Operator Internal Medicine 04/27/22 Railroad Car Loader Relationship Specialty Start Date End Date Vini Sparks DO [address] [place] [address] PCP - General Family Medicine 08/24/16 Owen Lopez, RN [address] [place] [address] Crystallizer Operator Internal Medicine 04/27/22 Railroad Car Loader Relationship Specialty Start Date End Date Vini Sparks DO [address] [place] [address] PCP - General Family Medicine 08/24/16 Owen Lopez, RN [address] [place] [address] Crystallizer Operator Internal Medicine 04/27/22 Railroad Car Loader Relationship Specialty Start Date End Date Vini Sparks DO [address] [place] [address] PCP - General Family Medicine 08/24/16 Owen Lopez, RN [address] [place] [address] Crystallizer Operator Internal Medicine 04/27/22 Railroad Car Loader Relationship Specialty Start Date End Date Vini Sparks DO [address] [place] [address] PCP - General Family Medicine 08/24/16 Owen Lopez RN [address] [place] [address] Crystallizer Operator Internal Medicine 04/27/22 Railroad Car Loader Relationship Specialty Start Date End Date Vini Sparks, [address] [place] [address] PCP - General Family Medicine 08/24/16 Owne Lopez, RN [address] [place] [address] Crystallizer Operator Internal Medicine 04/27/22 Railroad Car Loader Relationship Specialty Start Date End Date Vini Sparks, [address] [place] [address] PCP - General Family Medicine 08/24/16 Owen Lopez, RN [address] [place] [address] Crystallizer Operator Internal Medicine 04/27/22 Railroad Car Loader Relationship Specialty Start Date End Date Vini Sparks, [address] [place] [address] PCP - General Family Medicine 08/24/16 Owen Lopez, RN [address] [place] [address] Crystallizer Operator Internal Medicine 04/27/22 Railroad Car Loader Relationship Specialty Start Date End Date Vini Sparks DO [address] [place] [address] PCP - General Family Medicine 08/24/16 Owen Lopez, RN [address] [place] [address] Crystallizer Operator Internal Medicine 04/27/22 Railroad Car Loader Relationship Specialty Start Date End Date Vini Sparks DO [address] [place] [address] PCP - General Family Medicine 08/24/16 Owen Lopez, RN [address] [place] [address] Crystallizer Operator Internal Medicine 04/27/22 Railroad Car Loader Relationship Specialty Start Date End Date Vini Sparks DO [address] [place] [address] PCP - General Family Medicine 08/24/16 Owen Lopez, RN [address] [place] [address] Crystallizer Operator Internal Medicine 04/27/22 Railroad Car Loader Relationship Specialty Start Date End Date Vini Sparks, [address] [place] [address] PCP - General Family Medicine 08/24/16 Owen Lopez, RN [address] [place] [address] Crystallizer Operator Internal Medicine 04/27/22 Railroad Car Loader Relationship Specialty Start Date End Date Vini Sparks DO [address] [place] [address] PCP - General Family Medicine 08/24/16 Owen Lopez, RN [address] [place] [address] Crystallizer Operator Internal Medicine 04/27/22 Railroad Car Loader Relationship Specialty Start Date End Date Vini Sparks, [address] [place] [address] PCP - General Family Medicine 08/24/16 Owen Lopez, RN [address] [place] [address] Crystallizer Operator Internal Medicine 04/27/22 Railroad Car Loader Relationship Specialty Start Date End Date Vini Sparks DO [address] [place] [address] PCP - General Family Medicine 08/24/16 Owen Lopez, RN [address] [place] [address] Crystallizer Operator Internal Medicine 04/27/22 Railroad Car Loader Relationship Specialty Start Date End Date Vini Sparks, [address] [place] [address] PCP - General Family Medicine 08/24/16 Owen Lopez, RN [address] [place] [address] Crystallizer Operator Internal Medicine 04/27/22 Railroad Car Loader Relationship Specialty Start Date End Date Vini Sparks, [address] [place] [address] PCP - General Family Medicine 08/24/16 Owen Lopez, RN [address] [place] [address] Crystallizer Operator Internal Medicine 04/27/22 Railroad Car Loader Relationship Specialty Start Date End Date Vini Sparks, [address] [place] [address] PCP - General Family Medicine 08/24/16 Owen Lopez, RN [address] [place] [address] Crystallizer Operator Internal Medicine 04/27/22 Railroad Car Loader Relationship Specialty Start Date End Date Vini Sparks DO [address] [place] [address] PCP - General Family Medicine 08/24/16 Owen Lopez, RN [address] [place] [address] Crystallizer Operator Internal Medicine 04/27/22 Railroad Car Loader Relationship Specialty Start Date End Date Vini Sparks DO [address] [place] [address] PCP - General Family Medicine 08/24/16 Owen Lopez RN [address] [place] [address] Crystallizer Operator Internal Medicine 04/27/22 Railroad Car Loader Relationship Specialty Start Date End Date Vini Sparks DO [address] [place] [address] PCP - General Family Medicine 08/24/16 Radha Jurado, 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 [address] [place] [address] Farm Mechanic Apprentice Family Medicine 03/24/24 Railroad Car Loader Relationship Specialty Start Date End Date Vini Sparks DO [address] [place] [address] PCP - General Family Medicine 08/24/16 Radha Jurado, 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 [address] [place] [address] Farm Mechanic Apprentice Family [facility] 03/24/24 Railroad Car Loader Relationship Specialty Start Date End Date Vini Sparks DO [address] [place] [address] PCP - General Family Medicine 08/24/16 Radha Jurado, 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 [address] [place] [address] Farm Mechanic Apprentice Family [facility] 03/24/24 Railroad Car Loader Relationship Specialty Start Date End Date Viin Sparks DO [address] [place] [address] PCP - General Family Medicine 08/24/16 Radha Jurado, 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 [address] [place] [address] Farm Mechanic Apprentice [facility] 03/24/24 Railroad Car Loader Relationship Specialty Start Date End Date Vini Sparks DO [address] [place] [address] PCP - General Family Medicine 08/24/16 Radha Jurado, 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 [address] [place] [address] [facility] Railroad Car Loader Relationship Specialty Start Date End Date Vini Sparks DO [address] [place] [address] PCP - General Family Medicine 08/24/16 Radha Jurado, 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 [address] [place] [address] [facility] Railroad Car Loader Relationship Specialty Start Date End Date Vini Sparks DO [address] [place], [place] [address] PCP - General Family Medicine 08/24/16 [facility] 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 [address] [place], [place] [address] [facility] 03/24/24 Team Status: Active Member Role/Relationship Status Dates Dr. Vini Sparks DO Family Provider Active Dr. Vini Sparks DO Primary Care Provider Active Team Status: Inactive Member Role/Relationship Status Dates Dr. Vini Sparks DO Primary Care Provider Active Start: October 15, 2024 End: October 15, 2024 Dr. Vini Sparks DO Referring Provider Active Start: October 15, 2024 End: October 15, 2024 Dr. Srinath Bustos MD Attending Provider Active Start: October 15, 2024 End: October 15, 2024 Railroad Car Loader Relationship Specialty Start Date End Date Vini Sparks DO [address] [place], [place] [address] PCP - General Family Medicine 08/24/16 [facility] Radha, 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 [address] [place] [address] [facility] 03/24/24 Marilyn Cummings, 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 [address] [place], [place] [id number] [facility] 09/30/24 Team Status: Inactive Member Role/Relationship Status Dates Dr. Vini Sparks DO Primary Care Provider Active Start: December 12, 2024 End: December 12, 2024 Dr. Vini Sparks DO Referring Provider Active Start: December 12, 2024 End: December 12, 2024 Sarah PEARCE, PA Attending Provider Active Start: December 12, 2024 End: December 12, 2024 Railroad Car Loader Relationship Specialty Start Date End Date Vini Sparks DO [address] [place] [address] PCP - General Family Medicine 08/24/16 Radha Jurado, 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 [address] [place] [address] Farm Mechanic Apprentice Family Medicine 03/24/24 Marilyn Cummings, 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 [address] [place] [address] Farm Mechanic Apprentice Family [facility] 09/30/24 Team Status: Active Member Role/Relationship Status Dates Dr. Vini Sparks DO Primary care physician Active Team Status: Inactive Member Role/Relationship Status Dates Dr. Vini Sparks DO Primary care physician Active Start: October 15, 2024 End: October 15, 2024 Dr. Vini Sparks DO Referring Provider Active Start: October 15, 2024 End: October 15, 2024 Dr. Srinath Bustos MD Attending physician Active Start: October 15, 2024 End: October 15, 2024 Team Status: Inactive Member Role/Relationship Status Dates Dr. Vini Sparks DO Primary care physician Active Start: December 12, 2024 End: December 12, 2024 Dr. Vini Sparks DO Referring Provider Active Start: December 12, 2024 End: December 12, 2024 Sarah PEARCE, PA Attending physician Active Start: December 12, 2024 End: December 12, 2024 Team Status: Active Member Role/Relationship Status Dates Dr. Vini Sparks DO Primary care physician Active Start: January 13, 2025 Sarah PEARCE, PA Attending physician Active Start: January 13, 2025 Sarah Garcia PA, PA Referring Provider Active Start: January 13, 2025 Team Status: Active Member Role/Relationship Status Dates Dr. Vini Sparks DO Primary care physician Active Start: January 13, 2025 RAMSES Espino Referring Provider Active Start: January 13, 2025 RAMSES Espino Nurse Practitioner Active Start: January 13, 2025 Dr. Dilip Can MD Attending physician Active Start: January 13, 2025 Team Status: Inactive Member Role/Relationship Status Dates Dr. Vini Sparks DO Primary care physician Active Start: January 16, 2025 End: January 16, 2025 Dr. Vini Sparks DO Referring Provider Active Start: January 16, 2025 End: January 16, 2025 Dr. Srinath Bustos MD Attending physician Active Start: January 16, 2025 End: January 16, 2025 Team Status: Inactive Member Role/Relationship Status Dates Dr. Vini Sparks DO Primary care physician Active Start: January 13, 2025 End: January 13, 2025 RAMSES Espino Attending physician Active Start: January 13, 2025 End: January 13, 2025 RAMSES Espino Referring Provider Active Start: January 13, 2025 End: January 13, 2025 Team Status: Active Member Role/Relationship Status Dates Dr. Vini Sparks DO Primary care physician Active Start: January 16, 2025 Dr. Srinath Bustos MD Attending physician Active Start: January 16, 2025 Dr. Srinath Bustos MD Referring Provider Active Start: January 16, 2025 Team Status: Inactive Member Role/Relationship Status Dates Dr. Vini Sparks DO Primary care physician Active Start: January 20, 2025 End: January 20, 2025 Dr. Vini Sparks DO Referring Provider Active Start: January 20, 2025 End: January 20, 2025 Dr. Srinath Bustos MD Attending physician Active Start: January 20, 2025 End: January 20, 2025 Goals (unrecognized section and content) Goals may be documented in a n alternate sectionGoals may be documented in an alternate sectionGoals may be documented in an alternate sectionGoals may be documented in an alternate sectionGoals may be documented in an alternate sectionGoals may be documented in an alternate section INFORMATION SOURCE (unrecogn ized section and content) DATE CREATED AUTHOR 01/19/2022 [facility] DATE CREATED AUTHOR AUTHOR'S ORGANIZ ATION 01/22/2025 [facility] DATE CREATED AUTHOR AUTHOR'S TIANA ATION 01/28/2025 [facility] FOR RECORDS PERTAINING TO PATIENTS WHO ARE OR HAVE BEEN ENROLLED IN A CHEMICAL DEPENDENCY/SUBSTANCEABUSE PROGRAM, SOME INFORMATION MAY BE OMITTED. This clinical summary was aggregated from multiple sources. Caution should be exercised in using it in the provision of clinical care. This summary normalizes information from multiple sources, and as a consequence, information in this document may materially change the coding, format and clinical context of patient data. In addition, data may be omitted in some cases. CLINICAL DECISIONS SHOULD BE BASED ON THE PRIMARY CLINICAL RECORDS. [facility] [employer] [facility]. provides no warranty or guarantee of the accuracy or completeness of information in this document.
[2025-01-30 21:29] VITALS: BMI 29.1
--- NOTE | 2025-01-30 21:38 | PCM.HP.STD ---
HPI - General General Date of Admission: 01/30/25 Date of Service: 01/30/25 Chief Complaint: shortness of breath HPI Narrative SIVAN BRADSHAW, is a 84 F with a past medical history as outlined who was admitted as a transfer from [facility] ED for hypoxia. Patient had had cardioversion for A-fib with RVR done in [facility] on 01/28/2025. He was discharged home. He went to the ED today because he had a mechanical fall at home. Patient is on Eliquis. He denied any dizziness, palpitations, nausea vomiting or any other symptoms. CT of the brain done at outside hospital was negative and CT of the cervical, thoracic and lumbar spine showed a mild acute T12 compression fracture with no other significant findings. Was at outside hospital he was hypoxic and saturation at 87% at rest on room air and at 83% on room air with exertion. CTA of the chest showed no evidence of PE but showed interstitial edema with small bilateral pleural effusions and bibasilar subsegmental parenchymal consolidation adjacent to the pleural effusions, moderate cardiomegaly and dense calcification in the LAD. BNP was more than 3000. He was given IV Lasix 20 mg at outside hospital and there was concern for pneumonia so he was also given a dose of IV Rocephin. Labs done at outside hospital showed WBC of 13.7, hemoglobin of 12 and platelets of 233. Chemistry done that showed sodium of 138 with potassium of 4.4, bicarb of 21 and BUN of 18. Creatinine was 0.9 and liver function test were within normal limits. Of note, D dimer was also markedly elevated but as stated the CT chest was negaitve for any evidence of PE and patient is already anticoagulated on eliquis. He was transferred to [facility] to be managed for probable acute exacerbation of heart failure with hypoxia as well as probable pneumonia. OF note, CT cervical,, thoracic and lumbar spine showed mild acute T12 compression fracture and no other fracture and showed multilevel degenerative spine changes and trace pleural effusions and evidence of pulmonary edema. [facility] Medical History Chronic atrial fibrillation Palpitations Carotid atherosclerosis Hypothyroidism Bilateral malignant neoplasm of central portion of breast in female Anxiety Hyperlipidemia Hypertension Home Medications ?Medication ?Instructions ?Recorded ?Last Taken ?Type calcium carbonate 1,500 mg PO QHS SUPPLEMENT 11/13/17 01/29/25 History amlodipine 5 mg tablet 5 mg PO QDAY 09/30/24 01/29/25 History losartan 50 mg tablet 50 mg PO QDAY 09/30/24 01/29/25 History pravastatin 40 mg tablet 40 mg PO QHS 09/30/24 01/29/25 History vitamin B complex 1 tab PO QDAY 09/30/24 Unknown History levothyroxine 112 mcg tablet 112 mcg PO QDAY 12/12/24 01/29/25 History apixaban 5 mg tablet 5 mg PO BID #200 tabs 12/13/24 01/29/25 Rx amiodarone 200 mg tablet 200 mg PO QDAY #60 tabs 01/16/25 01/29/25 Rx sertraline 50 mg tablet 50 mg PO QHS 01/16/25 01/29/25 History metoprolol tartrate 50 mg tablet 50 mg PO BID 01/30/25 01/29/25 History Allergy/AdvReac Type Severity Reaction Status Date / Time morphine AdvReac Vomiting Verified 01/16/25 10:35 Family History Mother Cancer Father CAD (coronary artery disease) Myocardial infarction Sister Cancer Brother Cancer Heart disease Surgical History History of knee replacement History of tonsillectomy History of mastectomy History of cholecystectomy History of breast biopsy Social History Smoking Status: Never smoker alcohol intake: current substance use type: does not use caffeine: Yes ROS Constitutional Constitutional: Reports fatigue, malaise and weakness; Denies anorexia, chills or fever(s) Eyes Eyes: Denies change in vision ENT HEENT: Denies dysphagia, headache(s) or nasal congestion Cardiovascular Cardiovascular: Reports dyspnea on exertion and orthopnea; Denies chest pain, edema, lightheadedness, palpitations, paroxysmal nocturnal dyspnea, rapid heart rate or syncope Respiratory/Chest Respiratory/Chest: Reports cough, dyspnea, shortness of breath at rest and shortness of breath with exertion; Denies productive cough or wheezing Gastrointestinal Gastrointestinal: Denies abdominal pain, constipation, diarrhea, nausea or vomiting Genitourinary Genitourinary: Denies burning urination or dysuria Neurologic Neurologic: Denies confusion, dizziness, focal weakness, headache(s), numbness, seizures or syncope Psychiatric Psychiatric: Denies anxiety Vital Signs Vital Signs Vital Signs: Weight Weight: 159 lb 6.307 oz Body Mass Index (BMI) 29.1 Physical Exam Const alert, oriented x3 and no apparent distress General Appearance: cooperative HEENT normocephalic, head/scalp atraumatic, hearing grossly normal bilaterally, moist oral mucous membranes and oropharynx normal Mouth: oral and palatal mucosa normal Eyes EOMs intact bilaterally and conjunctivae normal Neck supple and no JVD Resp Resp Narrative: Mildly diminished breath sounds bibasilarly. No wheezes or crackles. On room air. Cardio regular rate, regular rhythm, S1 normal heart sound, S2 normal heart sound and no murmurs GI normal to inspection, nondistended, normoactive bowel sounds, soft to palpation, non-tender and non-distended Extremity normal to inspection, full ROM and no clubbing, cyanosis or edema Neuro oriented x3, moves all extremities and no focal motor deficits Sensorium / Orientation: awake and alert Motor Exam: strength 5/5 throughout Psych affect normal Results Lab / Micro Data 01/31/25 05:31 01/31/25 05:31 Assessment & Plan Assessment/Plan (1) Paroxysmal atrial fibrillation: (2) Hypoxia: (3) Acute heart failure: PLAN: Plan # Acute hypoxia due to acute exacerbation of heart failure Admitted as a transfer from outside hospital where he presented with shortness of breath and mechanical fall. He was hypoxic on room air with exertion also. CTA chest showed no PE but showed interstitial edema with bilateral pleural effusion. Diuresed with IV Lasix 40 mg twice daily BNP was markedly elevated at over 3000. Monitor intake and output. Fluid restriction to 1500 cc daily. Titrate oxygen to maintain saturation above 90%. #Paroxysmal atrial fibrillation: Had cardioversion done on 01/28/2025 at [facility]. On amiodarone and Eliquis as well as metoprolol. #Hypothyroidism: On Synthroid #Hypertension: On amlodipine and losartan as well as metoprolol XL #Hyperlipidemia: On statin #Depression: On sertraline DVT prophylaxis: Already on Eliquis CODE STATUS: Patient counseled extensively about different types of CODE STATUS including full code, DNR CCA and DNR CCA. Patient elects to be full code. Total [id number] time 16 minutes. Charges/Coding Visit Charges Inpatient E&M: 43293 Init Hosp L3 Procedures Hospitalists Procedures: 67333 Advncd Care Plan 30 Min
--- OUTSIDE RECORDS SUMMARY | 2025-01-30 22:20 | XMS RPT_ITS | CCD ---
Author Organization [facility] Care Team Providers Care Acetone Button Paster Name Role Phone Vini Sparks DO Primary Care Provider VINI SPARKS Primary Care Unavailable JUAN JAIMES Attending Unava ilable VINI SPARKS Primary Care Unavailable GLORIA BROWN Attending Unavaila ble Vini Sparks DO Primary Care Provider Vini Sparks DO Primary Care Provider Owen Lopez RN Unavailable Owen Lopez RN Unavailable Vini Sparks DO Primary Care Provider [facility] [employer].Radha MIJARES Unavailable Dr. Vini Sparks DO Primary Care Provider Dr. Vini Sparks DO Referring Provider Dr. Srinath Bustos MD Attending Provider [facility] [employer].Marilyn MIJARES Unavailable Sarah Charles Attending Provider Dr. [...] 4 Mental Status Change, Intolerance, GI Upset [facility] (1 source) Morphine Drug Allergy 5 [facility] Repository Medications Current Medications Medication [...] Comment on above: Take 1 tablet by aelsha th twice daily. Take 1 tablet by [...] on above: Take 1 capsule by mo [facility] every 8 hours as needed for [...] Range Facility Cardioversion Reporton 01-28 Cardioversion Report [facility] Cardiovascular Services [address] [place] [address] MR#: [id number] Acct: [id number] Name: HARJIT BRADSHAW Rep #: [id number] : 1940 84 From: Srinath Bustos MD Primary Care: Dr. Vini Sparks, DO Status: [facility] Referring Dr: Srinath Bustos MD Sex: F C Cardioversion Cardioversion: The patient was brought to the Tour [facility] recovery area in the fasting state. She [...] patient will be recovered in the cardiac Tour [facility] recovery unit and discharged to home. The patient has an appointment for follow-up ECG in 1 week in the [place] [facility] office. The patient will be continued on amiodarone 200 mg daily will reevaluate long-term management at 4 to 6 weeks when she is reevaluated in the office. Procedures Coronary Therapeutic CF Procedures 92xxx-93xxx: 40435 Cardioversion electric ext 01/28/25 1233 Date Srinath Bustos MD CC: Dr. Vini Sparks, DO; Dr. Srinath Bustos MD Date Dictated: 01/28/251228 Date Transcribed: 01/28/251228 Agile Tester: Signed Normal [facility] Procedure Reporton Procedure Report [facility] Medical Records Department [address] [place] [address] Procedure Report 01/28/25 1237 MR#: [id number] Acct: [id number] Name: HARJIT BRADSHAW Rep #: [id number] : 1940 84 From: Sarath Trivedi DO PCP: Dr. Vini Sparks DO Status:[facility] Location: [facility] Procedures Pulmonary Pulmonary Procedures /Diagnostic Testin Con Sedation Bedside Procedural Bedside Procedure Information Date of Procedure: 01/28/25 Description of procedure: CONSCIOUS SEDATION REPORT DATE OF SERVICE: January 28, 2025 BRIEF HISTORY OF PRESENT ILLNESS: The patient is an 84-year-old female who presented to [facility] to undergo an elective outpatient [...] DO; Dr. Srinath Bustos MD Signed Normal [facility] CNOVSPon 01-20-2025 CNOVSP Visit (SP) Office (HEMAWS) HARJIT BRADSHAW ([id number]) 1940 F Date Time Provider Department 01/20/25 11:00 AM ELISSA NEGRO During your visit today, we recorded the following information about you: Temperature Pulse Blood pressure Weight 97.4 degrees 88/minute 130/90 74.2 kg Elsisa Negro APRN.CNP 01/20/2025 11:26 AM Signed Chief [...] volume. 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 APRN.DISTRICT MANAGER Referring Provider: ELISSA NEGOR [[id number]] Allergies As of Date: 01/20/2025 Noted Allergy Reaction MORPHINE 03/03/2014 1 - Mental Status Change 5 - Intolerance 8 - GI Upset Date Reviewed: 01/20/2025 Reviewed by: 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 APRN.DISTRICT MANAGER - Fully Assessed Reason for Visit: Established Patient [175] Primary Visit Diagnosis:Encounter for follow-up surveillance of breast cancer [Z08, Z85.3] Other Visit Diagnoses: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 in female, estrogen receptor positive (HCC) [C50.112, Z17.0] Encounter for screening mammogram for high-risk patient [Z12.31] Order(s):[facility] SCREENING W ORACIO [[id number]] Order #: [id number] FUTURE Follow-up and Disposition History for Encounter Date Provider Department Center 01/20/2025 [id number][facility] Prescriptions as of 01/20/2025 - a (more content not included)... Normal [facility] Anion gap in Serum or Plasma Ordered By: Srinath Bustos on 01-16-2025 Anion gap [Moles/Vol] 12 mmol/L 08-29 [facility] BUN/creatinine ratioOrdered By: Srinath Bustos on 01-16-2025 Urea nitrogen/Creatinine [Mass ratio] 17.4 mg/mg 02-03 [facility] Basic Metabolic Profile (BMP )on 01-16-2025 BUN/CRE 17.4 RATIO Normal 10-20 [facility] Comment on above: Performed By: #### L 500.2500, L501.9310, L100.0500, L501.9520 #### [facility] Laboratory [address] [place], [address] Calcium [Mass/Vol] 9.3 mg/dL Normal 7.6-11.0 [facility] Comment on above: Performed By: #### L 500.2500, L501.9310, L100.0500, L501.9520 #### [facility] Laboratory [address] [place], [address] Chloride [Moles/Vol] 103 mmol/L Normal 98-108 [facility] Comment on above: Performed By: #### L 500.2500, L501.9310, L100.0500, L501.9520 #### [facility] [address] [place], [address] CO2 [Moles/Vol] 23.4 mmol/L Normal 21.0-32.0 [facility] Comment on above: Performed By: #### L 500.2500, L501.9310, L100.0500, L501.9520 #### [facility] Laboratory [address] [place], [address] Creatinine [Mass/Vol] 0.90 mg/dL Normal 0.70-1.20 [facility] Comment on above: Performed By: #### L 500.2500, L501.9310, L100.0500, L501.9520 #### [facility] [address] [place], [address] GAP 12 Normal 5-15 [facility] Comment on above: Performed By: #### L 500.2500, L501.9310, L100.0500, L501.9520 #### [facility] [address] [place], [address] GFR/1.73 sq M.predicted among non-blacks MDRD (S/P/Bld) [Vol rate/Area] 63 mL/min/{1.73_m2} Normal >60 [facility] Comment on above: Result Comment: mL/m in/1.73m2 CKD-EPI Creatinine Equation (2020) Performed By: #### L 500.2500, L501.9310, L100.0500, L501.9520 #### [facility] Laboratory [address] [place], [address] Glucose [Mass/Vol] 101 mg/dL High 70-99 [facility] Comment on above: Performed By: #### L 500.2500, L501.9310, L100.0500, L501.9520 #### [facility] Laboratory [address] [place], [address] Potassium [Moles/Vol] 4.7 mmol/L Normal 3.3-5.1 [facility] Comment on above: Performed By: #### L 500.2500, L501.9310, L100.0500, L501.9520 #### [facility] [address] [place], [address] Sodium [Moles/Vol] 139 mmol/L Normal 133-145 [facility] Comment on above: Performed By: #### L 500.2500, L501.9310, L100.0500, L501.9520 #### [facility] [address] [place], [address] Urea nitrogen [Mass/Vol] 16 mg/dL Normal 4-19 [facility] Comment on above: Performed By: #### L 500.2500, L501.9310, L100.0500, L501.9520 #### [facility] Laboratory [address] [place], [address] CBC-Complete Blood Cnt No Di ffon 01-16-2025 Erythrocyte distribution width (RBC) [Ratio] 14.1 % Normal 11.6-14.6 [facility] Comment on above: Performed By: #### L 500.2500, L501.9310, L100.0500, L501.9520 #### [facility] [address] [place], [address] Hematocrit (Bld) [Volume fraction] 41.5 % Normal 37-47 [facility] Comment on above: Performed By: #### L 500.2500, L501.9310, L100.0500, L501.9520 #### [facility] [address] [place], [address] Hemoglobin (Bld) [Mass/Vol] 13.4 g/dL Normal 12.0-15.0 [facility] Comment on above: Performed By: #### L 500.2500, L501.9310, L100.0500, L501.9520 #### [facility] [address] [place], [address] MCH (RBC) [Entitic mass] 29.8 pg Normal 27.0-32.0 [facility] Comment on above: Performed By: #### L 500.2500, L501.9310, L100.0500, L501.9520 #### [facility] [address] [place], [address] MCHC (RBC) [Mass/Vol] 32.3 g/dL Normal 32-36 [facility] Comment on above: Performed By: #### L 500.2500, L501.9310, L100.0500, L501.9520 #### [facility] [address] [place], [address] MCV (RBC) [Entitic vol] 92.2 fL Normal 81-99 [facility] Comment on above: Performed By: #### L 500.2500, L501.9310, L100.0500, L501.9520 #### [facility] Laboratory [address] [place], [address] Platelet mean volume (Bld) [Entitic vol] 10.8 fL Normal 6.2-12.0 [facility] Comment on above: Performed By: #### L 500.2500, L501.9310, L100.0500, L501.9520 #### [facility] Laboratory [address] [place], [address] Platelets (Bld) [#/Vol] 296 10*3/uL Normal 150-450 [facility] Comment on above: Performed By: #### L 500.2500, L501.9310, L100.0500, L501.9520 #### [facility] [address] [place], [address] RBC (Bld) [#/Vol] 4.50 10*6/uL Normal 4.2-5.4 [facility] Comment on above: Performed By: #### L 500.2500, L501.9310, L100.0500, L501.9520 #### [facility] [address] [place], [address] RDW SD 47.7 fl High 35.1-43.9 [facility] Comment on above: Performed By: #### L 500.2500, L501.9310, L100.0500, L501.9520 #### [facility] [address] [place], [address] WBC (Bld) [#/Vol] 9.6 10*3/uL Normal 4.4-11.0 [facility] Comment on above: Performed By: #### L 500.2500, L501.9310, L100.0500, L501.9520 #### [facility] [address] [place], [address] Carbon dioxide, total [Moles /volume] in Central venous bloodOrdered By: Srinath Bustos on 01-16-2025 CO2 [Moles/Vol] 23.4 mmol/L 21.0-32.0 [facility] Cardiology Visit Reporton Cardiology Visit Report [facility] [address] [place] [address] OFFICE VISIT Date of Service: 01/16/25 MR#: [id number] Acct: [id number] Name: HARJIT BRADSHAW Rep #: [id number] : 1940 Provider: Dr. Srinath styles MD Age/Sex: 84/F Location: [facility] [place] Status: Signed HPI HPI History of [...] 1+ TR. This was done at the [facility]. The patient also had a stress test [...] air Intake Visit Reasons: 6 W FU Technical Publications Manager Required: No Accompanied by: Is patient in [...] Head: n (more content not included)... Normal [facility] Chloride assayOrdered By: Ariadna Bustos on 01-16-2025 Chloride [Moles/Vol] 103 mmol/L 98-108 [facility] Erythrocyte distribution wid th ratioOrdered By: Srinath Bustos on 01-16-2025 Erythrocyte distribution width (RBC) [Ratio] 14.1 % 11.6-14.6 [facility] Erythrocyte distribution wid th standard deviationOrdered By: Srinath Bustos on 01-16-2025 Erythrocyte distribution width (RBC) [Ratio] 47.7 fl High 35.1-43.9 [facility] Glomerular filtration rate ( GFR) estimation/1.73 sq m using serum, plasma, or whole bOrdered By: Srinath Bustos on 01-16-2025 GFR/1.73 sq M.predicted among non-blacks MDRD (S/P/Bld) [Vol rate/Area] 63 mL/min/{1.73_m2} >60 [facility] Comment on above: mL/min/1.73m2 CKD-EP I Creatinine Equation (2020) Hematocrit Auto (Bld) [Volum e fraction]Ordered By: Srinath Bustos on 01-16-2025 Hematocrit (Bld) [Volume fraction] 41.5 % 37-47 [facility] Hemoglobin measurementOrdere d By: Srinath Bustos on 01-16-2025 Hemoglobin (Bld) [Mass/Vol] 13.4 g/dL 12.0-15.0 [facility] MCV (mean corpuscular volume ) determinationOrdered By: Srinath Bustos on 01-16-2025 MCV (RBC) [Entitic vol] 92.2 fL 81-99 [facility] Mean corpuscular hemoglobin (MCH) determinationOrdered By: Srinath Bustos on 01-16-2025 MCH (RBC) [Entitic mass] 29.8 pg 27.0-32.0 [facility] Mean corpuscular hemoglobin concentration (MCHC) determinationOrdered By: Srinath Bustos on 01-16-2025 MCHC (RBC) [Mass/Vol] 32.3 g/dL 32-36 [facility] Mean platelet volume determi nationOrdered By: Srinath Bustos on 01-16-2025 Platelet mean volume (Bld) [Entitic vol] 10.8 fL 6.2-12.0 [facility] Platelet countOrdered By: Ariadna Bustos on 01-16-2025 Platelets (Bld) [#/Vol] 296 10*3/uL 150-450 [facility] Potassium measurement (mass/ volume)Ordered By: Srinath Bustos on 01-16-2025 Potassium (Unsp spec) [Mass/Vol] 4.7 mmol/L 3.3-5.1 [facility] RBC Auto (Bld) [#/Vol]Ordere d By: Srinath Bustos on 01-16-2025 RBC (Bld) [#/Vol] 4.50 10*6/uL 4.2-5.4 [facility] Serum creatinine measurement (mass/volume)Ordered By: Srinath Bustos on 01-16-2025 Creatinine [Mass/Vol] 0.90 mg/dL 0.70-1.20 [facility] Serum glucose measurement (m ass/volume)Ordered By: Srinath Bustos on 01-16-2025 Glucose [Mass/Vol] 101 mg/dL High 70-99 [facility] Serum or plasma calcium bette urement (mass/volume)Ordered By: Srinath Bustos on 01-16-2025 Calcium [Mass/Vol] 9.3 mg/dL 7.6-11.0 [facility] Serum or plasma urea nitroge n measurement (mass/volume)Ordered By: Srinath Bustos on 01-16-2025 Urea nitrogen [Mass/Vol] 16 mg/dL 4-19 [facility] Sodium levelOrdered By: Angel Bustos on 01-16-2025 Sodium [Moles/Vol] 139 mmol/L 133-145 [facility] T4 Total, Thyroxinon 025 T4 [Mass/Vol] 7.0 ug/dL Normal 4.8-13.9 [facility] Comment on above: Performed By: #### L 500.2500, L501.9310, L100.0500, L501.9520 #### [facility] Laboratory [address] [place], [address] TSH DL <= 0.005 mIU/L QnOrde red By: Srinath Bustos on 01-16-2025 TSH Qn 3.710 uIU/mL 0.300-4.200 [facility] Thyroid Stim Hormone (TSH)on 01-16-2025 TSH 3.710 uIU/mL Normal 0.300-4.200 [facility] Comment on above: Performed By: #### L 500.2500, L501.9310, L100.0500, L501.9520 #### [facility] Laboratory [address] [facility] [place], [address] ThyroxineOrdered By: Srinath Bustos on 01-16-2025 T4 [Mass/Vol] 7.0 ug/dL 4.8-13.9 [facility] White blood cell (WBC) count Ordered By: Srinath Bustos on 01-16-2025 WBC (Bld) [#/Vol] 9.6 10*3/uL 4.4-11.0 [facility] Cardiovascular stress test r eportOrdered By: Dilip Can on 01-13-2025 Study report [facility] Cardiovascular Services [address] [place] [address] MR#: [id number] Acct: [id number] Name: HARJIT BRADSHAW Rep #: [id number] : 1940 84 From: Dilip Can MD [...] ~ Date Dictated: 01/13/251846 Date Transcribed: 01/13/251846 Agile Tester: CO Signed [facility] Work Phone: Stress Reporton 01-13-2025 Stress Report [facility] Cardiovascular Services [address] [place] [address] MR#: [id number] Acct: [id number] Name: HARJIT BRADSHAW Senia Rep #: [id number] : 1940 84 From: Dilip Can MD [...] Bansal Date Dictated: 01/13/251846 Date Transcribed: 01/13/251846 Agile Tester: CO Signed Normal [facility] AMBROSE SCREENING Rosana Lewis 01-10 AMBROSE SCREENING W ORACIO * * *Final Report* * * DATE OF EXAM: Jan 10 2025 11:05AM WRW 0582 - AMBROSE SCREENING W ORACIO / PROCEDURE REASON: multiple diagnoses * * * * Physician Interpretation * * * * RESULT: [address] [address] #[id number] - [facility] SCREENING W ORACIO HISTORY: 84 year-old [...] Silvia Story M.D. Electronically signed on: 01/11/2025 Agile Tester: HILDA Transcribe Date/Time: Jan 10 2025 10:50A Dictated by: SILVIA STORY MD This examination was interpreted and the report reviewed and electronically signed by: SILVIA STORY MD on Jan 11 2025 7:46AM EST [id number] Normal [facility] López [facility]-07-2025 [facility] HARJIT BRADSHAW ([id number]) 1940 F Date Time Provider Department 01/07/25 [...] voices understanding. She states Sarah PEARCE from [place] [facility] told her she needed to [...] rx from cardiology. Thank you, Ayesha Tran APRN.DISTRICT MANAGER Allergies As of Date: 01/07/2025 Noted Allergy [...] Sig: Take (more content not included)... Normal [facility] Cardiology Visit Reporton Cardiology Visit Report [facility] [address] [place], [place] [address]curly. [address] [place], [place] [address] OFFICE VISIT Date of Service: 12/12/24 MR#: [id number] Acct: [id number] Name: HARJIT BRADSHAW Senia Rep #: [id number] : 1940 Provider: RAMSES Da Silva Age/Sex: 84/F Location: [facility] Status: Signed HPI HPI History of [...] Visit Reasons: 2 WK FU/See Clinical Note Technical Publications Manager Required: No Accompanied by: Is patient in [...] is no (more content not included)... Normal [facility] Cardiology Visit Reporton Cardiology Visit Report [facility] [address] [place] [address] OFFICE VISIT Date of Service: 10/15/24 MR#: [id number] Acct: [id number] Name: HARJIT BRADSHAW Rep #: [id number] : 1940 Provider: Dr. Srinath styles MD Age/Sex: 84/F Location: [facility] Status: Signed HPI HPI History of Present Illness Details: Patient is a very pleasant 84-year-old white female that comes in today with her who I actually took care of 25 years ago at [facility]. The patient is here for new patient [...] room air Intake Visit Reasons: AFIB (BRIDGER) Technical Publications Manager Required: No Accompanied by: Is patient in [...] to inspecti (more content not included)... Normal [facility] US CAROTID ARTERIES [facility] 10-10-2024 US CAROTID [facility]ERIES [facility] Non-Invasive Vascular Laboratory [facility] Carotid Duplex Bilateral/Complete Date of service/time: 10/10/2024 [...] physician: Juan Bernstein MD, LUDIVINA Final CC [employer] [facility] Image : [id number] amicsSISUID See Link below for Image Normal [facility] CNPElizabeth 09-26-2024 CNPN Telephone (FAMPWS) HARJIT BRADSHAW ([id number]) 1940 F Date Time Provider Department 09/26/24 [facility] During your visit today, we recorded [...] 8:37 AM Signed Has she seen the Insole Department Worker yet? This is needed DO Julian Díaz [...] to get her to this appt with Insole Department Worker? 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] 01/20/2021 Tremor [R25.1] 01/20/2021 PAMLA (generalized anxiety disorder) [F41.1] 01/20/2021 Osteopenia, senile [M85.80] 12/15/2021 Anxious mood [F41.9] 12/15/2021 Hyperkalemia [E87.5] 08/15/2022 Vitamin B12 deficiency [E53.8] 08/15/2022 Hyperglycemia [R73.9] 08/15/2022 Personal history of alcoholism (HCC) [F10.21] 08/15/2022 Depression, recurrent (HCC) [F33.9] 08/15/2022 Letter Text Encounter Status:Closed by RANDY AGUILERA LPN on 09/17/24 Normal [facility] ECHOon 09-16-2024 Echocardiography Echocardiography Report: Transthoracic Echo [facility] Date of service: 09/16/2024 1:00:21 PM STUDENT Ordering physician: VINI SPARKS Exam indication: Chest [...] * * Final * * * CC [employer] [facility] : [id number] amicsSISUID Normal [facility] POTASSIUMon 09-14-2024 Potassium [Moles/Vol] 5.0 mmol/L Normal 3.7-5.1 [facility] Comment on above: Order Comment: Speci men Type: BLOOD SPECIMEN Ordering Facility: [facility] Address: [address] [place] [address] Performed By: #### K 1 #### [facility] CLIA [id number] [address] [place], [place] [address] [address] [place] CNPNon 09-04-2024 CNPN Telephone (FAMPWS) HARJIT BRADSHAW ([id number]) 1940 F Date Time Provider Department 09/04/24 [facility] During your visit today, we recorded the following information about you: Quattrocchi, Purnima, JAVA DEVELOPER 09/04/2024 2:55 PM Signed Patient calling said pharmacy told her for a month of Eliquis is 460 dollars and she can not afford that. She said her is on the medication and has to pay that much for 90 days rx. Patient is asking if she could be put on something else that is cheaper? Patient uses [facility] for her pharmacy. Please advise Vini Sparks DO 09/07/2024 7:29 AM Signed Please call and clarify if she has seen the Insole Department Worker yet? She was just recently diagnosed with atrial fibrillation on 08/28 in office DO Kiah Díaz Linda M, LPN 09/07/2024 10:05 AM Signed Spoke wit pt states has not yet seen tool planer set up operator. Vini Sparks DO 09/07/2024 11:17 AM Signed [...] and she does not want to leave [place] [facility] cardi[facility]. [facility] Please advise if provider is ok with patient going to [facility]. Ayesha Tran APRN.MARYANA 09/12/2024 1:16 PM Signed Ok with going with [facility]. Please assistance in scheduling/ provide her the number. Thank you, GODWIN Beth Stephanie 09/13/2024 3:45 PM Signed Order faxed to [facility] with the request that they reach out to the patient to schedule. Allergies As of Date: 09/04/2024 Noted Allergy Reaction MORPHINE 03/03/2014 1 - Mental Status Change 5 - Intolerance 8 - GI Upset Date Reviewed: 08/28/2024 Reviewed by: Liliana-Green, Randy JAVA DEVELOPER - Fully Assessed Reason for Visit: Medication [...] Status:Closed by AILIN ALANIS on 09/13/24 Normal [facility] Hemoccult Stl Ql IAon 2024 Lower GI hemoglobin IA Ql (Stl) Negative Normal Negative [facility] Comment on above: Order Comment: Speci men Type: STOOL SPECIMEN Ordering Facility: [facility] Address: [address] [place] [address] Performed By: #### 2 9771-3 #### [facility] CLIA [id number] [address] [place] [address] [place] 25(OH)D3 [facility] 25-hydroxyvitamin D3 [Mass/Vol] 63.8 ng/mL Normal 31.0-80.0 [facility] Comment on above: Order Comment: Speci men Type: BLOOD SPECIMENOrdering Facility: [facility] Address: [address] [place] [address] Performed By: #### 1 989-3 ####[facility] [id number] [place] [address] [place] CBC panel Auto (Bld)on 05-15 -2025 Erythrocyte distribution width (RBC) [Ratio] 15.4 % High 11.5-15.0 [facility] Comment on above: Order Comment: Speci men Type: STOOL SPECIMEN Ordering Facility: [facility] Address: [address] [place] [address] Performed By: #### 2 9771-3 #### [facility] CLIA [id number] [address] [place] [address] [place] Hematocrit (Bld) [Volume fraction] 41.0 % Normal 36.0-46.0 [facility] Comment on above: Order Comment: Speci men Type: STOOL SPECIMEN Ordering Facility: [facility] Address: [address] [place] [address] Performed By: #### 2 9771-3 #### [facility] CLIA [id number] [address] [place] [address] [place] Hemoglobin (Bld) [Mass/Vol] 12.9 g/dL Normal 11.5-15.5 [facility] Comment on above: Order Comment: Speci men Type: STOOL SPECIMEN Ordering Facility: [facility] Address: [address] [place] [address] Performed By: #### 2 9771-3 #### [facility] CLIA [id number] [address] [place] [address] [place] MCH (RBC) [Entitic mass] 29.4 pg Normal 26.0-34.0 [facility] Comment on above: Order Comment: Speci men Type: STOOL SPECIMEN Ordering Facility: [facility] Address: [address] [place] [address] Performed By: #### 2 9771-3 #### [facility] CLIA [id number] [address] [place] [address] [place] MCHC (RBC) [Mass/Vol] 31.5 g/dL Normal 30.5-36.0 [facility] Comment on above: Order Comment: Speci men Type: STOOL SPECIMEN Ordering Facility: [facility] Address: [address] [place] [address] Performed By: #### 2 9771-3 #### [facility] CLIA [id number] [address] [place] [address] [place] MCV (RBC) [Entitic vol] 93.4 fL Normal 80.0-100.0 [facility] Comment on above: Order Comment: Speci men Type: STOOL SPECIMEN Ordering Facility: [facility] Address: [address] [place] [address] Performed By: #### 2 9771-3 #### [facility] CLIA [id number] [address] [place] [address] [place] Nucleated RBC (Bld) [#/Vol] 10*3/uL Normal <0.01 [facility] Comment on above: Order Comment: Speci men Type: STOOL SPECIMEN Ordering Facility: [facility] Address: [address] [place] [address] Performed By: #### 2 9771-3 #### [facility] CLIA [id number] [address] [place] [address] [place] Platelet mean volume (Bld) [Entitic vol] 11.5 fL Normal 9.0-12.7 [facility] Comment on above: Order Comment: Speci men Type: STOOL SPECIMEN Ordering Facility: [facility] Address: [address] [place] [address] Performed By: #### 2 9771-3 #### [facility] CLIA [id number] [address] [place] [address] [place] Platelets (Bld) [#/Vol] 268 10*3/uL Normal 150-400 [facility] Comment on above: Order Comment: Speci men Type: STOOL SPECIMEN Ordering Facility: [facility] Address: [address] [place] [address] Performed By: #### 2 9771-3 #### [facility] CLIA [id number] [address] [place] [address] [place] RBC (Bld) [#/Vol] 4.39 10*6/uL Normal 3.90-5.20 [facility] Comment on above: Order Comment: Speci men Type: STOOL SPECIMEN Ordering Facility: [facility] Address: [address] [place] [address] Performed By: #### 2 9771-3 #### [facility] CLIA [id number] [address] [place] [address] [place] WBC (Bld) [#/Vol] 9.35 10*3/uL Normal 3.70-11.00 [facility] Comment on above: Order Comment: Speci men Type: STOOL SPECIMEN Ordering Facility: [facility] Address: [address] [place] [address] Performed By: #### 2 9771-3 #### [facility] CLIA [id number] [address] [place] [address] [place] Comprehensive metabolic 2000 panelon 08-29-2024 Albumin [Mass/Vol] 4.5 g/dL Normal 3.9-4.9 [facility] Comment on above: Order Comment: Speci men Type: BLOOD SPECIMENOrdering Facility: [facility] Address: [address] [place] [address] Performed By: #### 3 016-3, 70504-6, 43300-9, 3024-7 ####[facility] [id number] [place] [address] [place] ALP [Catalytic activity/Vol] 119 U/L Normal 34-123 [facility] Comment on above: Order Comment: Speci men Type: BLOOD SPECIMENOrdering Facility: [facility] Address: [address] [place] [address] Performed By: #### 3 016-3, 00753-5, 42994-0, 3024-7 ####[facility] [id number] [address] [address] [place] ALT [Catalytic activity/Vol] 25 U/L Normal 7-38 [facility] Comment on above: Order Comment: Speci men Type: BLOOD SPECIMENOrdering Facility: [facility] Address: [address] [place] [address] Performed By: #### 3 016-3, 37578-0, 79232-8, 3023-7 ####[facility] [id number] [address] [address] [place] Anion gap [Moles/Vol] 14 mmol/L Normal 8-15 [facility] Comment on above: Order Comment: Speci men Type: BLOOD SPECIMENOrdering Facility: [facility] Address: [address] [place] [address] Performed By: #### 3 016-3, 64875-3, 91113-3, 3023-7 ####[facility] [id number] [place] [id number] [place] AST [Catalytic activity/Vol] 31 U/L Normal 13-35 [facility] Comment on above: Order Comment: Speci men Type: BLOOD SPECIMENOrdering Facility: [facility] Address: [address] [place] [address] Performed By: #### 3 016-3, 68260-9, 60100-9, 3023-7 ####[facility] [id number] [address] [address] [place] Bilirubin [Mass/Vol] 0.5 mg/dL Normal 0.2-1.3 [facility] Comment on above: Order Comment: Speci men Type: BLOOD SPECIMENOrdering Facility: [facility] Address: [address] [place] [address] Performed By: #### 3 016-3, 17096-2, 93608-2, 302-7 ####[facility] [id number] [address] [address] [place] Calcium [Mass/Vol] 9.6 mg/dL Normal 8.5-10.2 [facility] Comment on above: Order Comment: Speci men Type: BLOOD SPECIMENOrdering Facility: [facility] Address: [address] [place] [address] Performed By: #### 3 016-3, 99476-8, 91835-2, 3023-7 ####[facility] [id number] [place] [id number] [place] Chloride [Moles/Vol] 105 mmol/L Normal 98-107 [facility] Comment on above: Order Comment: Speci men Type: BLOOD SPECIMENOrdering Facility: [facility] Address: [address] [place] [address] Performed By: #### 3 016-3, 54574-9, 35542-1, 3027 ####[facility] [id number] [place] [address] [place] CO2 [Moles/Vol] 22 mmol/L Normal 22-30 [facility] Comment on above: Order Comment: Speci men Type: BLOOD SPECIMENOrdering Facility: [facility] Address: [address] [place] [address] Performed By: #### 3 016-3, 47820-7, 94051-7, 7 ####[facility] [id number] [address] [address] [place] Creatinine [Mass/Vol] 0.90 mg/dL Normal 0.58-0.96 [facility] Comment on above: Order Comment: Speci men Type: BLOOD SPECIMENOrdering Facility: [facility] Address: [address] [place] [address] Performed By: #### 3 016-3, 47285-4, 65316-5, 302-7 ####[facility] [id number] [address] [place] Creatinine and Glomerular filtration rate.predicted panel (S/P/Bld) 63 mL/min/1.73m??? Normal >=60 [facility] Comment on above: Order Comment: Marychuy andrew Type: BLOOD SPECIMENOrdering Facility: [facility] Address: [address] [place] [address] Result Comment: Halley mated Glomerular Filtration Rate [...] actual GFR. Performed By: #### 3 016-3, 24375-3, 18209-4, 3024-7 ####[facility] [id number] [place] [address] [place] Glucose [Mass/Vol] 95 mg/dL Normal 74-99 [facility] Comment on above: Order Comment: Marychuy andrew Type: BLOOD SPECIMENOrdering Facility: [facility] Address: [address] [place] [address] Result Comment: The [place] Diabetes Association (ADA) provides guidance for cutoff [...] Standards of Medical Care in Diabetes 2016, [place] Diabetes Association. Diabetes Care. 2016.39(Suppl 1). Performed By: #### 3 016-3, 64055-7, 12592-0, 3024-7 ####[facility] [id number] [address] [address] [place] Potassium [Moles/Vol] 5.5 mmol/L High 3.7-5.1 [facility] Comment on above: Order Comment: Speci men Type: BLOOD SPECIMENOrdering Facility: [facility] Address: [address] [place] [address] Performed By: #### 3 016-3, 04991-1, 41681-0, 3023-7 ####[facility] [id number] [facility] [address] [place] [address] [place] Protein [Mass/Vol] 7.4 g/dL Normal 6.3-8.0 [facility] Comment on above: Order Comment: Speci men Type: BLOOD SPECIMENOrdering Facility: [facility] Address: [address] [place] [address] Performed By: #### 3 016-3, 83748-6, 59349-8, 7 ####[facility] [id number] [facility] [address], [facility] [place] Sodium [Moles/Vol] 141 mmol/L Normal 136-144 [facility] Comment on above: Order Comment: Speci men Type: BLOOD SPECIMENOrdering Facility: [facility] Address: [address] [place] [address] Performed By: #### 3 016-3, 92214-9, 07618-8, 7 ####[facility] [id number] [facility] [address] [place] [address] [place] Urea nitrogen [Mass/Vol] 19 mg/dL Normal 7-21 [facility] Comment on above: Order Comment: Speci men Type: BLOOD SPECIMENOrdering Facility: [facility] Address: [address] [place] [address] Performed By: #### 3 016-3, 57963-0, 12827-8, 302-7 ####[facility] [id number] [facility] [address] [place] HbA1c (Bld)on 08-29-2024 Average glucose Estimated from glycated hemoglobin (Bld) [Mass/Vol] 120 mg/dL Normal [facility] Comment on above: Order Comment: Marychuy andrew Type: STOOL SPECIMEN Order[facility] Facility[facility] Address: [address] [place] [address] Result Comment: eAG: (Estimated average glucose) is a calculated value from HgbA1c and is appliance service representative of the average blood glucose level in the last 2-3 month period. Performed By: #### 2 9771-3 #### [facility] CLIA [id number] [address] [place] [address] [place] HbA1c (Bld) [Mass fraction] 5.8 % High 4.3-5.6 [facility] Comment on above: Order Comment: Marychuy andrew Type: STOOL SPECIMEN Order[facility] Address: [address] [place] [address] Result Comment: Amer [place] Diabetes Association guidelines indicate that patients with HgbA1c in the range 5.7-6.4% are at increased risk for development of diabetes, and intervention by lifestyle modification may be beneficial. HgbA1c greater or equal to 6.5% is considered diagnostic of diabetes. Performed By: #### 2 9771-3 #### [facility] CLIA [id number] [address] [place] [address] [place] Lipid 1996 panelon 5 Cholesterol [Mass/Vol] 200 mg/dL High <200 [facility] Comment on above: Order Comment: Marychuy andrew Type: BLOOD SPECIMENOrdering Facility: [facility] Address: [address] [place] [address] Result Comment: <200 mg/dL, Desirable 200-239 mg/dL, Borderline high >239 mg/dL, High Performed By: #### 3 016-3, 78033-4, 72839-5, 3024-7 ####[facility] [id number] [place] [address] [place] Cholesterol in HDL [Mass/Vol] 89 mg/dL Normal >39 [facility] Comment on above: Order Comment: Elissai lorrie Type: BLOOD SPECIMENOrdering Facility: [facility] Address: [address] [place] [address] Result Comment: 40-5 9 mg/dL, Acceptable >59 mg/dL, High: Negative risk factor for coronary heart disease <40 mg/dL, Low: Positive risk factor for coronary heart disease Performed By: #### 3 016-3, 22273-2, 57688-8, 3024-7 ####[facility] [id number] [address] [address] [facility] Cholesterol in LDL [Mass/Vol] 89 mg/dL Normal <100 [facility] Comment on above: Order Comment: Marychuy lorrie Type: BLOOD SPECIMENOrdering Facility: [facility] Address: [address] [place] [address] Result Comment: <100 mg/dL, Optimal 100-129 mg/dL, Near optimal/above optimal 130-159 mg/dL, Borderline high 160-189 mg/dL, High >189 mg/dL, Very high Secondary prevention optimal LDL Cholesterol levels are recommended to be <70 mg/dL LDL cholesterol is calculated using the Butler-NIH equation. Performed By: #### 3 016-3, 46894-6, 86289-2, 3024-7 ####[facility] [id number] [place] [id number] [employer] [facility] Cholesterol in LDL/Cholesterol in HDL [Mass ratio] 1.00 {ratio} Normal <2.54 [facility] Comment on above: Order Comment: Marychuy andrew Type: BLOOD SPECIMENOrdering Facility: [facility] Address: [address] [place] [address] Result Comment: [place]al rock: 1. National Cholesterol Education Program ATP III Guideline At-A-Glance Quick Desk Reference: National Heart, Lung, and Blood [place]. National Institutes of Health. 2001: NIH Publication No. 01-3305. 2. An International Atherosclerosis Society position paper: global recommendations for the management of dyslipidemia: executive summary, Atherosclerosis. 2014: 232(2):410-413. Performed By: #### 3 016-3, 90800-6, 69668-2, 7 ####[facility] [id number] [address] [address] [place] Cholesterol in VLDL [Mass/Vol] 21 mg/dL Normal <30 [facility] Comment on above: Order Comment: Speci men Type: BLOOD SPECIMENOrdering Facility: [facility] Address: [address] [place] [address] Performed By: #### 3 016-3, 32915-5, 21489-9, 3023-10 ####[facility] [id number] [place] [address] [place] Cholesterol non HDL [Mass/Vol] 111 mg/dL Normal <130 [facility] Comment on above: Order Comment: Speci men Type: BLOOD SPECIMENOrdering Facility: [facility] Address: [address] [place] [address] Result Comment: <130 mg/dL, Optimal 130-159 mg/dL, Near optimal/above optimal 160-189 mg/dL, Borderline high 190-219 mg/dL, High >219 mg/dL, Very high Secondary prevention optimal non HDL Cholesterol levels are recommended to be <100 mg/dL Performed By: #### 3 016-3, 53680-3, 50643-6, 7 ####[facility] [id number] [address] [place] [address] [place] Cholesterol.total/Choles terol in HDL [Mass ratio] 2.25 {ratio} Normal <5.10 [facility] Comment on above: Order Comment: Speci men Type: BLOOD SPECIMENOrdering Facility: [facility] Address: [address] [place] [address] Performed By: #### 3 016-3, 11574-6, 38977-3, 7 ####[facility] [id number] [address] [address] [place] FASTING TIME 12 hrs Normal [facility] Comment on above: Order Comment: Speci men Type: BLOOD SPECIMENOrdering Facility: [facility] Address: [address] [place] [address] Performed By: #### 3 016-3, 54317-8, 84652-7, 4-7 ####[facility] [id number] [place] [address] [place] Triglyceride [Mass/Vol] 131 mg/dL Normal <150 [facility] Comment on above: Order Comment: Speci men Type: BLOOD SPECIMENOrdering Facility: [facility] Address: [address] [place] [address] Result Comment: <150 mg/dL, Normal 150-199 mg/dL, Borderline high 200-499 mg/dL, High >499 mg/dL, Very high Performed By: #### 3 016-3, 50067-9, 62648-0, 3023-7 ####[facility] [id number] [place] [address] [place] T4 Free SerPl-mCncon 025 Free T4 [Mass/Vol] 1.4 ng/dL Normal 0.9-1.7 [facility] Comment on above: Order Comment: Speci men Type: BLOOD SPECIMENOrdering Facility: [facility] Address: [address] [place] [address] Performed By: #### 3 016-3, 28215-0, 60390-3, 3023-7 ####[facility] [id number] [place] [id number] [place] TSH SerPl-aCncon 08-29-2024 TSH Qn 1.370 m[IU]/L Normal 0.270-4.200 [facility] Comment on above: Order Comment: Speci men Type: BLOOD SPECIMENOrdering Facility: [facility] Address: [address] [place] [address] Performed By: #### 3 016-3, 32855-1, 90968-2, 3024-7 ####[facility] [id number] [place] [address] [place] Vit B12 Rosariol-Bobbincabigail 05-15-2 025 Cobalamin (Vitamin B12) [Mass/Vol] 661 pg/mL Normal 232-1245 [facility] Comment on above: Order Comment: Speci men Type: STOOL SPECIMEN [facility] Address: [address] [place] [address] Performed By: #### 2 9771-3 #### [facility] CLIA [id number] [address] [place] [address] [place] SHAWNAOVabigail 08-28-2024 CNOV Office Visit (FAMPWS ) HARJIT BRADSHAW ([id number]) 1940 Date Time Provider Department 08/28/24 12:00 [...] SHOULDER Left 01/09/2019 Dr. David Nieto @ [facility]; L reverse total shoulder replacement; L distal [...] (SYNTHROID) 112 (more content not included)... Normal [facility] 08-28-2024 [facility] Telephone (FAMPWS) HARJIT BRADSHAW ([id number]) 1940 F Date Time Provider Department 08/28/24 [facility] visit today, we recorded the following information about you: Vini Sparks, 08/28/2024 1:15 PM Signed Please fax [place] Department Worker referral to [facility] per her request Also fax [...] by RANDY AGUILERA LPN on 08/28/24 Normal [facility] ECG COMPLETEon 08-28-2024 ECG COMPLETE Ventricular Rate : 9 3 BPM QRS Duration : 84 ms Q-T Interval : 364 ms QTC Calculation(Bazett) : 452 ms Calculated R [place] : 7 degrees Calculated T [place] : -57 degrees ATRIAL FIBRILLATION INFERIOR T WAVE ABNORMALITY ABNORMAL ECG Confirmed by MD SHALINI, DAVID ([id number]) on 09/02/2024 12:34:02 PM NAME : HARJIT BRADSHAW PID : [id number] : 1940 Gender : Female Race : ORD : [id number] Procedure Date : Aug 28 2024 12:47:38 Edit Date : Sep 02 2024 12:34:05 Diagnosis: ATRIAL FIBRILLATION INFERIOR T WAVE ABNORMALITY ABNORMAL ECG Confirmed by MD LOYA QARAB ([id number]) on 09/02/2024 12:34:02 PM Test Reason : R07.89 Other chest pain Location : 185 : [facility] Overread By : MD LOYA QARAB Edited By : MD LOYA QARAB Referred By : , Acquired by : Genaro MIN [facility] CNOVon 07-11-2024 CNOV Office Visit (FAMPWS ) HARJIT BRADSHAW ([id number]) 1940 F Date Time Provider Department 07/11/24 2:20 PM SIVA KNAPP [facility] During your visit today, we [...] SHOULDER Left 01/09/2019 Dr. David Nieto @ [facility]; L reverse total shoulder replacement; L distal [...] no details, 85 Coronary Artery Disease Father ID, 94 Cancer Sister 57 liver Cancer Brother [...] due on (more content not included)... Normal [facility] ([id number]) 1940 F Date Time Provider Department 02/29/24 VINI SPARKS [facility] During your visit today, we recorded the following information about you: Purnima Galvez LPN 02/29/2024 9:18 AM Signed [facility] pharmacy calling asking to clarify directions on [...] for 90 tablets with 1 refill. Called [facility] and spoke with pharmacist Camilla. Confirmed with [...] date is 07/09/23 and prescription number of [id number]. Pt states that sometimes she will empty [...] to speak with her daughter Lexy, Jesus, wcyoahya-ye-rsb Owen and son Bravo. Nurse concerned about [...] Tried to inform no answer or VM. Madison Sarah Kinney 03/05/2024 4:49 PM Signed Patient returned phone call. Please call her on her 's cell: [phone]. Randy Aguilera LPN 03/06/2024 5:57 PM Signed Detailed message left on husbands VM. Allergies As of Date: 02/29/2024 Noted Allergy Reaction MORPHINE 03/03/2014 1 - Mental Status Change 5 - Intolerance 8 - GI Upset D (more content not included)... [facility] HARJIT BRASDHAW ([id number]) 1940 F Date Time Provider Department 02/28/24 VINI SPARKSWS During your visit today, we recorded the following information about you: Nayely, Deanna 02/28/2024 2:49 PM Signed Harjit is calling Vini Sparks DO today. Patient was at [facility] today and they have no record of receiving two of the medications sent on Monday sertraline (ZOLOFT) 100 mg tablet amLODIPine (NORVASC) 5 mg tablet Please contact pharmacy or send new scripts. 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 Deana Ferreira MA Allergies As of Date: [...] Encounter Status:Closed by DEANA FERREIRA on 02/28/24 [facility] CNOVon 02-26-2024 CNOV Office Visit (FAMPWS ) AUGUSTINEHARJIT Senia ([id number]) 1940 F Date Time Provider Department 02/26/24 10:40 AM [facility] During your visit today, we recorded the [...] SHOULDER Left 01/09/2019 Dr. David Nieto @ [facility]; L reverse total shoulder replacement; L distal [...] Encouraged so (more content not included)... Normal [facility](OH[facility] 25-hydroxyvitamin D3 [Mass/Vol] 51.5 ng/mL Normal 31.0-80.0 [facility] Comment on above: Order Comment: Speci men Type: BLOOD SPECIMENOrdering Facility: [facility] Address: [address] [place] [address] Performed By: #### 1 989-3 ####[facility] [id number] [place] [address] [place] CBC W Auto Differential pane l (Bld)on 02-19-2024 Basophils (Bld) [#/Vol] 0.07 10*3/uL Normal <0.11 [facility] Comment on above: Order Comment: Elissai men Type: STOOL SPECIMEN [facility]ing Facility[facility] Address: [address] [place] [address] Performed By: #### 2 9771-3 #### [facility] CLIA [id number] [address] [place] [address] [place] Basophils/100 WBC (Bld) 1.0 % Normal [facility] Comment on above: Order Comment: Speci men Type: STOOL SPECIMEN [facility]ing Facility: [facility] Address: [address] [place] [address] Performed By: #### 2 9771-3 #### [facility] CLIA [id number] [address] [place] [address] [place] Differential cell count method Nom (Bld) Auto Normal [facility] Comment on above: Order Comment: Speci men Type: STOOL SPECIMEN [facility] Address: [address] [place] [address] Performed By: #### 2 9771-3 #### [facility] CLIA [id number] [address] [place] [address] [place] Eosinophils (Bld) [#/Vol] 0.33 10*3/uL Normal <0.46 [facility] Comment on above: Order Comment: Speci men Type: STOOL SPECIMEN [facility] Address: [address] [place] [address] Performed By: #### 2 9771-3 #### [facility] CLIA [id number] [address] [place] [address] [place] Eosinophils/100 WBC (Bld) 4.6 % Normal [facility] Comment on above: Order Comment: Speci men Type: STOOL SPECIMEN [facility] Address: [address] [place] [address] Performed By: #### 2 9771-3 #### [facility] CLIA [id number] [address] [place] [address] [place] Erythrocyte distribution width (RBC) [Ratio] 13.8 % Normal 11.5-15.0 [facility] Comment on above: Order Comment: Speci men Type: STOOL SPECIMEN [facility] Address: [address] [place] [address] Performed By: #### 2 9771-3 #### [facility] CLIA [id number] [address] [place] [address] [place] Hematocrit (Bld) [Volume fraction] 39.5 % Normal 36.0-46.0 [facility] Comment on above: Order Comment: Speci men Type: STOOL SPECIMEN [facility] Address: [address] [place] [address] Performed By: #### 2 9771-3 #### [facility] CLIA [id number] [address] [place] [address] [place] Hemoglobin (Bld) [Mass/Vol] 12.8 g/dL Normal 11.5-15.5 [facility] Comment on above: Order Comment: Speci men Type: STOOL SPECIMEN [facility] Address: [address] [place] [address] Performed By: #### 2 9771-3 #### [facility] CLIA [id number] [address] [place] [address] [place] Immature granulocytes (Bld) [#/Vol] 0.03 10*3/uL Normal <0.10 [facility] Comment on above: Order Comment: Speci men Type: STOOL SPECIMEN [facility] Address: [address] [place] [address] Performed By: #### 2 9771-3 #### [facility] CLIA [id number] [address] [place] [address] [place] Immature granulocytes/100 WBC (Bld) 0.4 % Normal [facility] Comment on above: Order Comment: Speci men Type: STOOL SPECIMEN [facility] Address: [address] [place] [address] Performed By: #### 2 9771-3 #### [facility] CLIA [id number] [address] [place] [address] [place] Lymphocytes (Bld) [#/Vol] 1.52 10*3/uL Normal 1.00-4.00 [facility] Comment on above: Order Comment: Speci men Type: STOOL SPECIMEN [facility] Address: [address] [place] [address] Performed By: #### 2 9771-3 #### [facility] CLIA [id number] [address] [place] [address] [place] Lymphocytes/100 WBC (Bld) 21.3 % Normal [facility] Comment on above: Order Comment: Speci men Type: STOOL SPECIMEN [facility] Address: [address] [place] [address] Performed By: #### 2 9771-3 #### [facility] CLIA [id number] [address] [place] [address] [place] MCH (RBC) [Entitic mass] 31.0 pg Normal 26.0-34.0 [facility] Comment on above: Order Comment: Speci men Type: STOOL SPECIMEN [facility] Address: [address] [place] [address] Performed By: #### 2 9771-3 #### [facility] CLIA [id number] [address] [place] [address] [place] MCHC (RBC) [Mass/Vol] 32.4 g/dL Normal 30.5-36.0 [facility] Comment on above: Order Comment: Speci men Type: STOOL SPECIMEN [facility] Address: [address] [place] [address] Performed By: #### 2 9771-3 #### [facility] CLIA [id number] [address] [place] [address] [place] MCV (RBC) [Entitic vol] 95.6 fL Normal 80.0-100.0 [facility] Comment on above: Order Comment: Speci men Type: STOOL SPECIMEN [facility] Address: [address] [place] [address] Performed By: #### 2 9771-3 #### [facility] CLIA [id number] [address] [place] [address] [place] Monocytes (Bld) [#/Vol] 0.68 10*3/uL Normal <0.87 [facility] Comment on above: Order Comment: Speci men Type: STOOL SPECIMEN [facility] Address: [address] [place] [address] Performed By: #### 2 9771-3 #### [facility] CLIA [id number] [address] [place] [address] [place] Monocytes/100 WBC (Bld) 9.5 % Normal [facility] Comment on above: Order Comment: Speci men Type: STOOL SPECIMEN [facility] Address: [address] [place] [address] Performed By: #### 2 9771-3 #### [facility] CLIA [id number] [address] [place] [address] [place] Neutrophils (Bld) [#/Vol] 4.50 10*3/uL Normal 1.45-7.50 [facility] Comment on above: Order Comment: Speci men Type: STOOL SPECIMEN [facility] Address: [address] [place] [address] Performed By: #### 2 9771-3 #### [facility] CLIA [id number] [address] [place] [address] [place] Neutrophils/100 WBC (Bld) 63.2 % Normal [facility] Comment on above: Order Comment: Speci men Type: STOOL SPECIMEN [facility] Address: [address] [place] [address] Performed By: #### 2 9771-3 #### [facility] CLIA [id number] [address] [place] [address] [place] Nucleated RBC (Bld) [#/Vol] 10*3/uL Normal <0.01 [facility] Comment on above: Order Comment: Speci men Type: STOOL SPECIMEN [facility] Address: [address] [place] [address] Performed By: #### 2 9771-3 #### [facility] CLIA [id number] [address] [place] [address] [place] Nucleated RBC/100 WBC (Bld) [Ratio] 0.0 /100 WBC Normal [facility] Comment on above: Order Comment: Speci men Type: STOOL SPECIMEN [facility] Address: [address] [place] [address] Performed By: #### 2 9771-3 #### [facility] CLIA [id number] [address] [place] [address] [place] Platelet mean volume (Bld) [Entitic vol] 11.0 fL Normal 9.0-12.7 [facility] Comment on above: Order Comment: Speci men Type: STOOL SPECIMEN [facility] Address: [address] [place] [address] Performed By: #### 2 9771-3 #### [facility] CLIA [id number] [address] [place] [address] [place] Platelets (Bld) [#/Vol] 262 10*3/uL Normal 150-400 [facility] Comment on above: Order Comment: Speci men Type: STOOL SPECIMEN [facility] Address: [address] [place] [address] Performed By: #### 2 9771-3 #### [facility] CLIA [id number] [address] [place] [address] [place] RBC (Bld) [#/Vol] 4.13 10*6/uL Normal 3.90-5.20 [facility] Comment on above: Order Comment: Speci men Type: STOOL SPECIMEN [facility] Address: [address] [place] [address] Performed By: #### 2 9771-3 #### [facility] CLIA [id number] [address] [place] [address] [place] WBC (Bld) [#/Vol] 7.13 10*3/uL Normal 3.70-11.00 [facility] Comment on above: Order Comment: Speci men Type: STOOL SPECIMEN [facility] Address: [address] [place] [address] Performed By: #### 2 9771-3 #### [facility] CLIA [id number] [address] [place] [address] [place] Comprehensive metabolic 2000 panelon 02-19-2024 Albumin [Mass/Vol] 4.4 g/dL Normal 3.9-4.9 [facility] Comment on above: Order Comment: Speci men Type: STOOL SPECIMEN [facility] Address: [address] [place] [address] Performed By: #### 2 9771-3 #### [facility] CLIA [id number] [address] [place] [address] [place] ALP [Catalytic activity/Vol] 116 U/L Normal 34-123 [facility] Comment on above: Order Comment: Speci men Type: STOOL SPECIMEN [facility] Address: [address] [place] [address] Performed By: #### 2 9771-3 #### [facility] CLIA [id number] [address] [place] [address] [place] ALT [Catalytic activity/Vol] 15 U/L Normal 7-38 [facility] Comment on above: Order Comment: Speci men Type: STOOL SPECIMEN [facility] Address: [address] [place] [address] Performed By: #### 2 9771-3 #### [facility] CLIA [id number] [address] [place], [place] [address] [place] Anion gap [Moles/Vol] 12 mmol/L Normal 8-15 [facility] Comment on above: Order Comment: Speci men Type: STOOL SPECIMEN [facility] Address: [address] [place] [address] Performed By: #### 2 9771-3 #### [facility] CLIA [id number] [address] [place] [address] [place] AST [Catalytic activity/Vol] 21 U/L Normal 13-35 [facility] Comment on above: Order Comment: Speci men Type: STOOL SPECIMEN [facility] Address: [address] [place] [address] Performed By: #### 2 9771-3 #### [facility] CLIA [id number] [address] [place] [address] [place] Bilirubin [Mass/Vol] 0.5 mg/dL Normal 0.2-1.3 [facility] Comment on above: Order Comment: Speci men Type: STOOL SPECIMEN [facility] Address: [address] [place] [address] Performed By: #### 2 9771-3 #### [facility] CLIA [id number] [address] [place] [address] [place] Calcium [Mass/Vol] 9.3 mg/dL Normal 8.5-10.2 [facility] Comment on above: Order Comment: Speci men Type: STOOL SPECIMEN [facility] Address: [address] [place] [address] Performed By: #### 2 9771-3 #### [facility] CLIA [id number] [address] [place] [address] [place] Chloride [Moles/Vol] 102 mmol/L Normal 98-107 [facility] Comment on above: Order Comment: Speci men Type: STOOL SPECIMEN [facility] Address: [address] [place] [address] Performed By: #### 2 9771-3 #### [facility] CLIA [id number] [address] [place] [address] [place] CO2 [Moles/Vol] 25 mmol/L Normal 22-30 [facility] Comment on above: Order Comment: Speci men Type: STOOL SPECIMEN [facility] Address: [address] [place] [address] Performed By: #### 2 9771-3 #### [facility] CLIA [id number] [address] [place] [address] [place] Creatinine [Mass/Vol] 0.82 mg/dL Normal 0.58-0.96 [facility] Comment on above: Order Comment: Speci men Type: STOOL SPECIMEN [facility] Address: [address] [place] [address] Performed By: #### 2 9771-3 #### [facility] CLIA [id number] [address] [place] [address] [place] Creatinine and Glomerular filtration rate.predicted panel (S/P/Bld) 71 mL/min/1.73m??? Normal >=60 [facility] Comment on above: Order Comment: Speci men Type: STOOL SPECIMEN [facility] Address: [address] [place] [address] Result Comment: Halley mated Glomerular Filtration Rate [...] GFR. Performed By: #### 2 9771-3 #### [facility] CLIA [id number] [address] [place] [address] [place] Glucose [Mass/Vol] 94 mg/dL Normal 74-99 [facility] Comment on above: Order Comment: Speci men Type: STOOL SPECIMEN [facility] Address: [address] [place] [address] Result Comment: The [place] Diabetes Association (ADA) provides guidance for cutoff [...] Standards of Medical Care in Diabetes 2016, [place] [employer] Association. Diabetes Care. 2016.39(Suppl 1). Performed By: #### 2 9771-3 #### [facility] CLIA [id number] [address] [place] [address] [place] Potassium [Moles/Vol] 4.4 mmol/L Normal 3.7-5.1 [facility] Comment on above: Order Comment: Speci men Type: STOOL SPECIMEN [facility] Address: [address] [place], [place] [address] Performed By: #### 2 9771-3 #### [facility] CLIA [id number] [address] [place] [address] [place] Protein [Mass/Vol] 6.8 g/dL Normal 6.3-8.0 [facility] Comment on above: Order Comment: Speci men Type: STOOL SPECIMEN [facility] Address: [address] [place] [address] Performed By: #### 2 9771-3 #### [facility] CLIA [id number] [address] [place] [address] [place] Sodium [Moles/Vol] 139 mmol/L Normal 136-144 [facility] Comment on above: Order Comment: Speci men Type: STOOL SPECIMEN [facility] Address: [address] [place] [address] Performed By: #### 2 9771-3 #### [facility] CLIA [id number] [address] [place] [address] [place] Urea nitrogen [Mass/Vol] 17 mg/dL Normal 7-21 [facility] Comment on above: Order Comment: Speci men Type: STOOL SPECIMEN [facility] Address: [address] [place] [address] Performed By: #### 2 9771-3 #### [facility] CLIA [id number] [address] [place] [address] [place] Lipid 1996 panelon 4 Cholesterol [Mass/Vol] 252 mg/dL High <200 [facility] Comment on above: Order Comment: Speci men Type: STOOL SPECIMEN [facility] Address: [address] [place] [address] Result Comment: <200 mg/dL, Desirable 200-239 mg/dL, Borderline high >239 mg/dL, High Performed By: #### 2 9771-3 #### [facility] CLIA [id number] [address] [place] [address] [place] Cholesterol in HDL [Mass/Vol] 100 mg/dL Normal >39 [facility] Comment on above: Order Comment: Speci men Type: STOOL SPECIMEN [facility] Address: [address] [place] [address] Result Comment: 40-5 9 mg/dL, Acceptable >59 mg/dL, High: Negative risk factor for coronary heart disease <40 mg/dL, Low: Positive risk factor for coronary heart disease Performed By: #### 2 9771-3 #### [facility] CLIA [id number] [address] [place] [address] [place] Cholesterol in LDL [Mass/Vol] 134 mg/dL High <100 [facility] Comment on above: Order Comment: Speci men Type: STOOL SPECIMEN [facility] Address: [address] [place] [address] Result Comment: <100 mg/dL, Optimal 100-129 mg/dL, Near optimal/above optimal 130-159 mg/dL, Borderline high 160-189 mg/dL, High >189 mg/dL, Very high Secondary prevention optimal LDL Cholesterol levels are recommended to be < 70 mg/dL Performed By: #### 2 9771-3 #### [facility] CLIA [id number] [address] [place] [address] [place] [facility] Cholesterol in LDL/Cholesterol in HDL [Mass ratio] 1.34 {ratio} Normal <2.54 [facility] Comment on above: Order Comment: Speci men Type: STOOL SPECIMEN [facility] Address: [address] [place] [address] Result Comment: Refe rence: 1. National Cholesterol Education Program ATP III Guideline At-A-Glance Quick Desk Reference: National Heart, Lung, and Blood [place]. National Institutes of Health. 2001: NIH Publication No. 01-3305. 2. An International Atherosclerosis Society position paper: global recommendations for the management of dyslipidemia: executive summary, Atherosclerosis. 2014: 232(2):410-413. Performed By: #### 2 9771-3 #### [facility] CLIA [id number] [address] [place] [address] [place] Cholesterol in VLDL [Mass/Vol] 18 mg/dL Normal <30 [facility] Comment on above: Order Comment: Speci men Type: STOOL SPECIMEN [facility] Address: [address] [place] [address] Performed By: #### 2 9771-3 #### [facility] CLIA [id number] [address] [place] [address] [place] Cholesterol non HDL [Mass/Vol] 152 mg/dL High <130 [facility] Comment on above: Order Comment: Speci men Type: STOOL SPECIMEN [facility] Address: [address] [place] [address] Result Comment: <130 mg/dL, Optimal 130-159 mg/dL, Near optimal/above optimal 160-189 mg/dL, Borderline high 190-219 mg/dL, High >219 mg/dL, Very high Secondary prevention optimal non HDL Cholesterol levels are recommended to be <100 mg/dL Performed By: #### 2 9771-3 #### [facility] CLIA [id number] [address] [place] [address] [place] Cholesterol.total/Choles terol in HDL [Mass ratio] 2.52 {ratio} Normal <5.10 [facility] Comment on above: Order Comment: Speci men Type: STOOL SPECIMEN [facility] Address: [address] [place] [address] Performed By: #### 2 9771-3 #### [facility] CLIA [id number] [address] [place] [address] [place] FASTING TIME 12 hrs Normal [facility] Comment on above: Order Comment: Speci men Type: STOOL SPECIMEN [facility] Address: [address] [place] [address] Performed By: #### 2 9771-3 #### [facility] CLIA [id number] [address] [place] [address] [place] Triglyceride [Mass/Vol] 91 mg/dL Normal <150 [facility] Comment on above: Order Comment: Speci men Type: STOOL SPECIMEN [facility] Address: [address] [place] [address] Result Comment: <150 mg/dL, Normal 150-199 mg/dL, Borderline high 200-499 mg/dL, High >499 mg/dL, Very high Performed By: #### 2 9771-3 #### [facility] CLIA [id number] [address] [place] [address] [place] T4 Free SerPl-mCncon 024 Free T4 [Mass/Vol] 1.6 ng/dL Normal 0.9-1.7 [facility] Comment on above: Order Comment: Speci men Type: STOOL SPECIMEN [facility] Address: [address] [place] [address] Performed By: #### 2 9771-3 #### [facility] CLIA [id number] [address] [place] [address] [place] TSH SerPl-aCncon 02-19-2024 TSH Qn 0.880 m[IU]/L Normal 0.270-4.200 [facility] Comment on above: Order Comment: Speci men Type: STOOL SPECIMEN [facility] Address: [address] [place] [address] Performed By: #### 2 9771-3 #### [facility] CLIA [id number] [address] [place] [address] [place] Vit B12 SerPl-mCncon 024 Cobalamin (Vitamin B12) [Mass/Vol] 537 pg/mL Normal 232-1245 [facility] Comment on above: Order Comment: Speci men Type: BLOOD SPECIMENOrdering Facility: [facility] Address: [address] [place] [address] Performed By: #### 2 132-9 ####[facility] [id number] [place] [address] [place] CNPElizabeth 02-09-2024 CNPN Telephone (FAMPWS) HARJIT BRADSHAW Senia ([id number]) 1940 F Date Time Provider Department 02/09/24 [...] calling: self Call patient at: at home [phone] (home) Was an appointment scheduled: No Closing statement: Results or non-symptom based questions: Thank you for calling [facility], your call will be returned within the [...] Date Reviewed: 12/04/2023 Reviewed by: 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 APRN.DISTRICT MANAGER - Fully Assessed Reason for Visit: Lab Orders [1688] Primary Visit Diagnosis:Hypothyroid ism, acquired [E03.9] Other Visit Diagnoses:Dyslipidemi a [E78.5] Vitamin D deficiency [E55.9] Vitamin B12 deficiency [E53.8] Order(s):COMPREHENSIV E METABOLIC PANEL [SQCMP] Order #: [id number] FUTURE COMPLETE BLOOD COUNT AND DIFFERENTIAL [SQCBCDIF] Order #: [id number] FUTURE LIPID PANEL BASIC [SQLIPB] Order #: [id number] FUTURE THYROID STIMULATING HORMONE [SQTSH] Order #: [id number] FUTURE T4 FREE/FREE THYROXINE [SQFT4] Order #: [id number] FUTURE VITAMIN D 25 HYDROXY [SQVITD] Order #: [id number] FUTURE VITAMIN B12 [SQB12] Order #: [id number] FUTURE Prescriptions as of 02/12/2024 - losartan [...] Status:Closed by TALIA TORO on 02/12/24 Normal [facility] CBC W Auto Differential pane l (Bld)on 08-22-2023 Basophils (Bld) [#/Vol] 0.09 10*3/uL [facility] Basophils/100 WBC (Bld) 1.3 % [facility] Differential cell count method Nom (Bld) Auto [facility] Eosinophils (Bld) [#/Vol] 0.23 10*3/uL [facility] Eosinophils/100 WBC (Bld) 3.4 % [facility] Erythrocyte distribution width (RBC) [Ratio] 14.7 % 11.5 - 15.0 % [facility] Hematocrit (Bld) [Volume fraction] 38.5 % 36.0 - 46.0 % [facility] Hemoglobin (Bld) [Mass/Vol] 12.2 g/dL 11.5 - 15.5 g/dL [facility] Immature granulocytes (Bld) [#/Vol] 0.03 10*3/uL [facility] Immature granulocytes/100 WBC (Bld) 0.4 % [facility] Lymphocytes (Bld) [#/Vol] 1.35 10*3/uL [facility] Lymphocytes/100 WBC (Bld) 19.7 % [facility] MCH (RBC) [Entitic mass] 30.0 pg 26. 0 - 34.0 pg [facility] MCHC (RBC) [Mass/Vol] 31.7 g/dL 30.5 - 36.0 g/dL [facility] MCV (RBC) [Entitic vol] 94.8 fL 80.0 - 100.0 fL [facility] Monocytes (Bld) [#/Vol] 0.70 10*3/uL [facility] Monocytes/100 WBC (Bld) 10.2 % [facility] Neutrophils (Bld) [#/Vol] 4.46 10*3/uL [facility] Neutrophils/100 WBC (Bld) 65.0 % [facility] Nucleated RBC (Bld) [#/Vol] NINF [facility] Nucleated RBC/100 WBC (Bld) [Ratio] 0.0 % /100 WBC [facility] Platelet mean volume (Bld) [Entitic vol] 11.6 fL 9.0 - 12.7 fL [facility] Platelets (Bld) [#/Vol] 269 10*3/uL [facility] RBC (Bld) [#/Vol] 4.06 10*6/uL 3.90 - 5.2 0 m/uL [facility] WBC (Bld) [#/Vol] 6.86 10*3/uL [facility] Cobalamin (Vitamin B12) [Mas s/Vol]on 08-22-2023 Interpretation and review of laboratory results Normal [facility] Comprehensive metabolic 2000 panelon 08-22-2023 Albumin [Mass/Vol] 4.2 g/dL 3.9 - 4.9 g/dL [facility] ALP [Catalytic activity/Vol] 113 U/L 34 - 123 U/L [facility] ALT [Catalytic activity/Vol] 18 U/L 7 - 38 U/L [facility] Anion gap [Moles/Vol] 12 mmol/L 9 - 18 mmol/L [facility] AST [Catalytic activity/Vol] 28 U/L 13 - 35 U/L [facility] Bilirubin [Mass/Vol] 0.4 mg/dL 0.2 - 1 .3 mg/dL [facility] Calcium [Mass/Vol] 9.5 mg/dL 8.5 - 10. 2 mg/dL [facility] Chloride [Moles/Vol] 105 mmol/L 97 - 10 5 mmol/L [facility] CO2 [Moles/Vol] 23 mmol/L 22 - 30 mmol/L [facility] Creatinine [Mass/Vol] 0.76 mg/dL 0.58 - 0.96 mg/dL [facility] GFR/1.73 sq M.predicted among non-blacks MDRD (S/P/Bld) [Vol rate/Area] 78 mL/min/{1.73_m2} - PINF [facility] Comment on above: Estimated Glomerular Filtration Rate [...] [Mass/Vol] 94 mg/dL 74 - 99 mg/dL [facility] Comment on above: The [place] Diabete s Association (ADA) provides guidance for [...] Standards of Medical Care in Diabetes 2016, [place] Diabetes Association. Diabetes Care. 2016.39(Suppl 1). Interpretation and review of laboratory results Normal [facility] Potassium [Moles/Vol] 4.8 mmol/L 3.7 - 5.1 mmol/L [facility] Protein [Mass/Vol] 7.1 g/dL 6.3 - 8.0 g/dL [facility] Sodium [Moles/Vol] 140 mmol/L 136 - 144 mmol/L [facility] Urea nitrogen [Mass/Vol] 17 mg/dL 7 - 21 mg/d L [facility] Lipid 1996 panelon 4 Cholesterol [Mass/Vol] 204 mg/dL High NINF - 200 mg/dL [facility] Comment on above: <200 mg/dL, Desirabl e 200-239 mg/dL, Borderline high >239 mg/dL, High Cholesterol in HDL [Mass/Vol] 90 mg/dL 39 - PINF mg/dL [facility] Comment on above: 40-59 mg/dL, Accepta ble >59 mg/dL, High: Negative risk factor for coronary heart disease <40 mg/dL, Low: Positive risk factor for coronary heart disease Cholesterol in LDL [Mass/Vol] 97 mg/dL NINF - 100 mg/dL [facility] Comment on above: <100 mg/dL, Optimal 100-129 mg/dL, Near optimal/above optimal 130-159 mg/dL, Borderline high 160-189 mg/dL, High >189 mg/dL, Very high Secondary prevention optimal LDL Cholesterol levels are recommended to be < 70 mg/dL Cholesterol in LDL/Cholesterol in HDL [Mass ratio] 1.08 {ratio} NINF - 2.54 [facility] Comment on above: Reference: 1. National Cholesterol Education Program ATP III Guideline At-A-Glance Quick Desk Reference: National Heart, Lung, and Blood [place]. National Institutes of Health. 2001: NIH Publication No. 01-3305. 2. An International Atherosclerosis Society position paper: global recommendations for the management of dyslipidemia: executive summary, Atherosclerosis. 2014: 232(2):410-413. Cholesterol in VLDL [Mass/Vol] 17 mg/dL NINF - 30 mg/dL [facility] Cholesterol non HDL [Mass/Vol] 114 mg/dL NINF - 130 mg/dL [facility] Comment on above: <130 mg/dL, Optimal 130-159 mg/dL, Near optimal/above optimal 160-189 mg/dL, Borderline high 190-219 mg/dL, High >219 mg/dL, Very high Secondary prevention optimal non HDL Cholesterol levels are recommended to be <100 mg/dL Cholesterol.total/Choles terol in HDL [Mass ratio] 2.27 {ratio} NINF - 5.10 [facility] Fasting Time 17 hrs [facility] Interpretation and review of laboratory results Abnormal [facility] Triglyceride [Mass/Vol] 84 mg/dL NINF - 150 mg/dL [facility] Comment on above: <150 mg/dL, Normal 150-199 mg/dL, Borderline high 200-499 mg/dL, High >499 mg/dL, Very high No Panel Informationon 08-21 Interpretation and review of laboratory results Normal [facility] T4 FREE/FREE THYROXINEon Free T4 [Mass/Vol] 1.4 ng/dL 0.9 - 1.7 ng/dL [facility] THYROID STIMULATING HORMONEo n 08-22-2023 TSH Qn 0.747 m[IU]/L [facility] VITAMIN B12on 08-22-2023 Cobalamin (Vitamin B12) [Mass/Vol] 516 pg/mL 232 - 1245 pg/mL [facility] XR Chest PA and Lateralon IMPRESSION: Stable exam without acute findings. Agile Tester: PSCCarmen Transcribe Date/Time: Jan 09 2023 11:32A Dictated by : SHAVON DUMONT MD This examination was interpreted and the report reviewed and electronically signed by: SHAVON DUMONT MD on Jan 09 2023 11:34AM [facility] DIVISION OF RADIOLOGY * * *Final [...] shows degenerative changes. DIVISION OF RADIOLOGY Provider, [facility] Luana garcia [place] - 01/09/2023 * * *Final Report* * [...] IMPRESSION IMPRESSION: Stable exam without acute findings. Agile Tester: PSCB Transcribe Date/Time: Jan 09 2023 11:32A Dictated by : SHAVON DUMONT MD This examination was interpreted and the report reviewed and electronically signed by: SHAVON DUMONT MD on Jan 09 2023 11:34AM EST [facility] Radiology Study observation (narrative) Carlos dowling [facility] XR Chest PA and LateralOrder ed By: Ccf Provider on 01-09-2023 [facility] AMBROSE SCREENING W TOMOon 01-05 [facility] ED NOTEon 01-18-2022 ED NOTE HNO ID: [id number] Author: Lulu Hurtado RN Service: Emergency Medicine Author Type: Registered Nurse Type: ED Notes Filed: 01/18/2022 4:46 PM Note Text: Pt verbalizes understanding of discharge instructions. Denies further questions, comments, concerns at this time. Continues to report that she is feeling much better. [facility] ED NOTE HNO ID: [id number] Author: Lulu Hurtado RN Service: Emergency Medicine Author Type: Registered Nurse Type: ED Notes Filed: 01/18/2022 4:08 PM Note Text: Pt sleeping. Awakens to voice and states that she is feeling much better. [facility] ED NOTE HNO ID: [id number] Author: Lulu Hurtado RN Service: Emergency Medicine Author Type: Registered Nurse Type: ED Notes Filed: 01/18/2022 2:47 PM Note Text: Physician to bedside. [facility] ED NOTE HNO ID: [id number] Author: Lulu Hurtado RN Service: Emergency Medicine [...] or needs. Call light in reach. [facility] ED NOTE HNO ID: [id number] Author: Lulu Hurtado RN Service: Emergency Medicine [...] at bedside. Call light in reach. [facility] ED PROV NOTEon 01-18-2022 ED PROV NOTE HNO ID: [id number] Author: Juan Jaimes MD Service: Emergency Medicine [...] SHOULDER Left 01/09/2019 Dr. David Nieto @ [facility]; L reverse total shoulder replacement; L distal [...] no details, 85 Coronary Artery Disease Father ID, 94 Cancer Sister 57 liver Cancer Brother [...] and oriented (more content not included)... Normal [facility] Basic metabolic 2000 panelon 01-17-2022 Anion gap [Moles/Vol] 10 mmol/L Normal 9-18 [facility] Comment on above: Order Comment: Marychuy andrew Type: BLOOD SPECIMEN Ordering Facility: [facility] Address: [address] [place] [address] Performed By: #### 3 016-3, 31036-9 #### [facility] CLIA [id number] [address] [place] [address] [place] Calcium [Mass/Vol] 9.5 mg/dL Normal 8.5-10.2 [facility] Comment on above: Order Comment: Marychuy andrew Type: BLOOD SPECIMEN Ordering Facility: [facility] Address: [address] [place] [place] [address] Performed By: #### 3 016-3, 38104-7 #### [facility] CLIA [id number] [address] [place] Chloride [Moles/Vol] 104 mmol/L Normal 97-105 [facility] Comment on above: Order Comment: Speci men Type: BLOOD SPECIMEN Ordering Facility: [facility] Address: [address] [place] [address] Performed By: #### 3 016-3, 04648-7 #### [facility] CLIA [id number] [address] [id number] [place] CO2 [Moles/Vol] 28 mmol/L Normal 22-30 [facility] Comment on above: Order Comment: Speci men Type: BLOOD SPECIMEN Ordering Facility: [facility] Address: [address] [place] [address] Performed By: #### 3 016-3, 29930-0 #### [facility] CLIA [id number] [address] OF [facility] Creatinine [Mass/Vol] 0.76 mg/dL Normal 0.58-0.96 [facility] Comment on above: Order Comment: Speci men Type: BLOOD SPECIMEN Ordering Facility: [facility] Address: [address] [place] [address] Performed By: #### 3 016-3, 07050-7 #### [facility] CLIA [id number] [address] ESTIMATED GLOMERULAR FILTRATION RATE 79 mL/min/1.73m??? Normal >=60 [facility] Comment on above: Order Comment: Speci men Type: BLOOD SPECIMEN Ordering Facility: [facility] Address: [address] [place] [address] Result Comment: Halley mated Glomerular Filtration Rate [...] actual GFR. Performed By: #### 3 016-3, 98091-9 #### [facility] CLIA [id number] [address] [place] [address] [place] Glucose [Mass/Vol] 106 mg/dL High 74-99 [facility] Comment on above: Order Comment: Marychuy andrew Type: BLOOD SPECIMEN Ordering Facility: [facility] Address: [address] [place], [place] [address] Result Comment: The [place] Diabetes Association (ADA) provides guidance for cutoff [...] Standards of Medical Care in Diabetes 2016, [place] Diabetes Association. Diabetes Care. 2016.39(Suppl 1). Performed By: #### 3 016-3, 77524-7 #### [facility] CLIA [id number] [address] [place] [address] [place] Potassium [Moles/Vol] 4.1 mmol/L Normal 3.7-5.1 [facility] Comment on above: Order Comment: Marychuy andrew Type: BLOOD SPECIMEN Ordering Facility: [facility] Address: [address] [phone] Performed By: #### 3 016-3, 52196-8 #### [facility][1] [facility] CLIA [id number] [address] [place] [address] [place] Sodium [Moles/Vol] 142 mmol/L Normal 136-144 [facility] Comment on above: Order Comment: Marychuy andrew Type: BLOOD SPECIMEN Ordering Facility: [facility] Address: [address] [place] [address] Performed By: #### 3 016-3, 57801-6 #### [facility] CLIA [id number] [address] Urea nitrogen [Mass/Vol] 16 mg/dL Normal 7-21 [facility] Comment on above: Order Comment: Speci men Type: BLOOD SPECIMEN Ordering Facility: [facility] Address: [address] [place] [address] Performed By: #### 3 016-3, 33178-0 #### [facility] CLIA [id number] [address] CBC W Auto Differential pane l (Bld)on 01-17-2022 Basophils (Bld) [#/Vol] 0.04 10*3/uL Normal <0.11 [facility] Comment on above: Order Comment: Speci men Type: BLOOD SPECIMEN Ordering Facility: [facility] Address: [address] [place] [address] Performed By: #### 5 7021-8 #### [facility] CLIA [id number] [address] [place] [address] Basophils/100 WBC (Bld) 0.5 % Normal [facility] Comment on above: Order Comment: Speci men Type: BLOOD SPECIMEN Ordering Facility: [facility] Address: [address] [place] [address] Performed By: #### 5 7021-8 #### [facility] CLIA [id number] [address] Differential cell count method Nom (Bld) Auto Normal [facility] Comment on above: Order Comment: Speci men Type: BLOOD SPECIMEN Ordering Facility: [facility] Address: [address] [place] [address] Performed By: #### 5 7021-8 #### [facility] CLIA [id number] [address] [place] Eosinophils (Bld) [#/Vol] 0.27 10*3/uL Normal <0.46 [facility] Comment on above: Order Comment: Speci men Type: BLOOD SPECIMEN Ordering Facility: [facility] Address: [address] [place] [address] Performed By: #### 5 7021-8 #### [facility] CLIA [id number] [address] [place] Eosinophils/100 WBC (Bld) 3.3 % Normal [facility] Comment on above: Order Comment: Speci men Type: BLOOD SPECIMEN Ordering Facility: [facility] Address: [address] [place] [address] Performed By: #### 5 7021-8 #### [facility] CLIA [id number] [address] [place] Erythrocyte distribution width (RBC) [Ratio] 13.0 % Normal 11.5-15.0 [facility] Comment on above: Order Comment: Speci men Type: BLOOD SPECIMEN Ordering Facility: [facility] Address: [address] [place] [address] Performed By: #### 5 7021-8 #### [facility] CLIA [id number] [address] [place] Hematocrit (Bld) [Volume fraction] 38.1 % Normal 36.0-46.0 [facility] Comment on above: Order Comment: Speci men Type: BLOOD SPECIMEN Ordering Facility: [facility] Address: [address] [place] [address] Performed By: #### 5 7021-8 #### [facility] CLIA [id number] [address] [place] Hemoglobin (Bld) [Mass/Vol] 12.7 g/dL Normal 11.5-15.5 [facility] Comment on above: Order Comment: Speci men Type: BLOOD SPECIMEN Ordering Facility: [facility] Address: [address] [address] Performed By: #### 5 7021-8 #### [facility] CLIA [id number] [address] [place] [address] [place] Lymphocytes (Bld) [#/Vol] 1.63 10*3/uL Normal 1.00-4.00 [facility] Comment on above: Order Comment: Speci men Type: BLOOD SPECIMEN Ordering Facility: [facility] Address: [address] [place] [address] Performed By: #### 5 7021-8 #### [facility] CLIA [id number] [address] [place] [address] Lymphocytes/100 WBC (Bld) 20.0 % Normal [facility] Comment on above: Order Comment: Speci men Type: BLOOD SPECIMEN Ordering Facility: [facility] Address: [address] [place] [address] Performed By: #### 5 7021-8 #### [facility] CLIA [id number] [address] [place] [address] OF [facility] MCH (RBC) [Entitic mass] 30.7 pg Normal 26.0-34.0 [facility] Comment on above: Order Comment: Speci men Type: BLOOD SPECIMEN Ordering Facility: [facility] Address: [address] [place] [address] Performed By: #### 5 7021-8 #### [facility] CLIA [id number] [address] [place] [address] OF [facility] MCHC (RBC) [Mass/Vol] 33.3 g/dL Normal 30.5-36.0 [facility] Comment on above: Order Comment: Speci men Type: BLOOD SPECIMEN Ordering Facility: [facility] Address: [address] [place] [address] Performed By: #### 5 7021-8 #### [facility] CLIA [id number] [address] MCV (RBC) [Entitic vol] 92.0 fL Normal 80.0-100.0 A [facility] Comment on above: Order Comment: Speci men Type: BLOOD SPECIMEN Ordering Facility: [facility] Address: [address] [place] [address] Performed By: #### 5 7021-8 #### [facility] CLIA [id number] [address] [place] [address] [place] Monocytes (Bld) [#/Vol] 0.69 10*3/uL Normal <0.87 [facility] Comment on above: Order Comment: Speci men Type: BLOOD SPECIMEN Ordering Facility: [facility] Address: [address] [place] [address] Performed By: #### 5 7021-8 #### [facility] CLIA [id number] [address] [place], [place] [id number] [place] [address] [place] Monocytes/100 WBC (Bld) 8.5 % Normal A [facility] Comment on above: Order Comment: Speci men Type: BLOOD SPECIMEN Ordering Facility: [facility] Address: [address] [place] [address] Performed By: #### 5 7021-8 #### [facility] CLIA [id number] [address] [place] [address] [place] Neutrophils (Bld) [#/Vol] 5.52 10*3/uL Normal 1.45-7.50 [facility] Comment on above: Order Comment: Speci men Type: BLOOD SPECIMEN Ordering Facility: [facility] Address: [address] [place] [address] Performed By: #### 5 7021-8 #### [facility] CLIA [id number] [address] [place] Neutrophils/100 WBC (Bld) 67.7 % Normal [facility] Comment on above: Order Comment: Speci men Type: BLOOD SPECIMEN Ordering Facility: [facility] Address: [address] [place] [address] Performed By: #### 5 7021-8 #### [facility][1[facility] CLIA [id number] [address] [place] [address] [place] Platelet mean volume (Bld) [Entitic vol] 11.1 fL Normal 9.0-12.7 [facility] Comment on above: Order Comment: Speci men Type: BLOOD SPECIMEN Ordering Facility: [facility] Address: [address] [place] [address] Performed By: #### 5 7021-8 #### [facility] CLIA [id number] [address] [place] [address] [place] Platelets (Bld) [#/Vol] 261 10*3/uL Normal 150-400 [facility] Comment on above: Order Comment: Speci men Type: BLOOD SPECIMEN Ordering Facility: [facility] Address: [address] [place] [address] Performed By: #### 5 7021-8 #### [facility] CLIA [id number] [address] [place] [address] [place] RBC (Bld) [#/Vol] 4.14 10*6/uL Normal 3.90-5.20 [facility] Comment on above: Order Comment: Speci men Type: BLOOD SPECIMEN Ordering Facility: [facility] Address: [address] [place] [address] Performed By: #### 5 7021-8 #### [facility] CLIA [id number] [address] [place] [address] [place] WBC (Bld) [#/Vol] 8.15 10*3/uL Normal 3.70-11.00 [facility] Comment on above: Order Comment: Speci men Type: BLOOD SPECIMEN Ordering Facility: [facility] Address: [address] [place] [address] Performed By: #### 5 7021-8 #### [facility] CLIA [id number] [address] [place], [place] [address] [place] [address] [place] [address] [address] BRAIN WO IVCONon 01-18-[address] BRAIN WO IVCON * * *Final Report* * * DATE OF EXAM: Jan 17 2022 2:39PM [facility] 0504 - CT BRAIN WO IVCON [...] were required COMPARISON: MRI brain 10/15/2020 RESULT: Java Software Engineer (topogram) images: No additional findings. Post-operative change: [...] are unremarkable. IMPRESSION: No acute intracranial findings. Agile Tester: PSCB Transcribe Date/Time: Jan 17 2022 2:50P Dictated by : ELOY RICH MD This examination was interpreted and the report reviewed and electronically signed by: ELOY RICH MD on Jan 17 2022 2:53PM EST [id number] Normal [facility] ECG COMPLETEon 01-17-2022 ECG COMPLETE Ventricular Rate : 5 4 BPM Atrial Rate : 54 BPM P-R Interval : 144 ms QRS Duration : 92 ms Q-T Interval : 420 ms QTC Calculation(Bazett) : 398 ms Calculated P [place] : -3 degrees Calculated R [place] : 23 degrees Calculated T [place] : -23 degrees SINUS BRADYCARDIA INCOMPLETE RIGHT BUNDLE BRANCH BLOCK OTHERWISE NORMAL ECG NO PREVIOUS ECGS AVAILABLE Confirmed by MD ALYSSA, VI ([id number]) on 01/18/2022 11:15:05 PM NAME : HARJIT BRADSHAW PID : [id number] : 1940 Gender : Female Race : ORD : [id number] Procedure Date : Jan 17 2022 14:22:56 Edit Date : Jan 18 2022 23:15:05 Diagnosis: SINUS BRADYCARDIA INCOMPLETE RIGHT BUNDLE BRANCH BLOCK OTHERWISE NORMAL ECG NO PREVIOUS ECGS AVAILABLE Confirmed by MD SHAH VINAYAK ([id number]) on 01/18/2022 11:15:05 PM Test Reason : Hypertension Location : 150 : [facility] Overread By : MD SHAH VINAYAK Edited By : MD SHAH VINAYAK Referred By : , Acquired by : GRANT WAY [facility] ED NOTEon 01-17-2022 ED NOTE HNO ID: [id number] Author: Seth Muro RN Service: Emergency Medicine [...] anything else to help you? No Normal [facility] ED PROV NOTEon 01-17-2022 ED PROV NOTE HNO ID: [id number] Author: Gloria Brown DO Service: Emergency Medicine [...] SHOULDER Left 01/09/2019 Dr. David Nieto @ [facility]; L reverse total shoulder replacement; L distal [...] no details, 85 Coronary Artery Disease Father ID, 94 Cancer Sister 57 liver Cancer Brother [...] Extraocular m (more content not included)... Normal [facility] TSH SerPl-aCncon 01-17-2022 TSH Qn 0.124 m[IU]/L Low 0.270-4.200 [facility] Comment on above: Order Comment: Speci men Type: BLOOD SPECIMENOrdering Facility: [facility] Address: [address] [place] [phone] Performed By: #### 3 016-3, 58783-7 ####[facility] [id number] [place] [address] [place] Urinalysis complete panel (U )on 01-17-2022 Bacteria LM.HPF (Urine sed) [#/Area] Many Abnormal None Seen [facility] Comment on above: Order Comment: Speci men Type: URINE SPECIMEN Ordering Facility: [facility] Address: [address] [place] [address] Performed By: #### 2 4356-8 #### [facility] CLIA [id number] [address] Bilirubin Ql (U) Negative Normal Negative [facility] Comment on above: Order Comment: Speci men Type: URINE SPECIMEN Ordering Facility: [facility] Address: [address] [place] [address] Performed By: #### 2 4356-8 #### [facility] CLIA [id number] [address] Clarity (Unsp spec) Slightly Cloudy Abnormal Clear [facility] Comment on above: Order Comment: Speci men Type: URINE SPECIMEN Ordering Facility: [facility] Address: [address] [place] [address] Performed By: #### 2 4356-8 #### [facility] CLIA [id number] [address] Color (U) Yellow Normal Yellow [facility] Comment on above: Order Comment: Speci men Type: URINE SPECIMEN Ordering Facility: [facility] Address: [address] [place] [address] Performed By: #### 2 4356-8 #### [facility] CLIA [id number] [address] [place] [id number] [facility] Glucose Test strip (U) [Mass/Vol] Negative Normal Negative [facility] Comment on above: Order Comment: Speci men Type: URINE SPECIMEN Ordering Facility: [facility] Address: [address] [place] [address] Performed By: #### 2 4356-8 #### [facility] CLIA [id number] 225 [place] [address] [employer] [place] Hemoglobin Ql (U) Negative Normal Negative [facility] Comment on above: Order Comment: Speci men Type: URINE SPECIMEN Ordering Facility: [facility] Address: [address] [place] [address] Performed By: #### 2 4356-8 #### [facility] CLIA [id number] [address] [place], [place] [id number] [place] [address] [place] Ketones Ql (U) Negative Normal Negative [facility] Comment on above: Order Comment: Speci men Type: URINE SPECIMEN Ordering Facility: [facility] Address: [address] [place] [address] Performed By: #### 2 4356-8 #### [facility] CLIA [id number] [address] [place] Leukocyte esterase Test strip Ql (U) Negative Normal Negative [facility] Comment on above: Order Comment: Speci men Type: URINE SPECIMEN Ordering Facility: [facility] Address: [address] [place] [address] Performed By: #### 2 4356-8 #### [facility] CLIA [id number] [address] [place] Nitrite Ql (U) Negative Normal Negative [facility] Comment on above: Order Comment: Speci men Type: URINE SPECIMEN Ordering Facility: [facility] Address: [address] [place] [address] Performed By: #### 2 4356-8 #### [facility] CLIA [id number] [address] [place] [address] [employer] [place] pH (U) 7.0 [pH] Normal 5.0-8.0 [facility] Comment on above: Order Comment: Speci men Type: URINE SPECIMEN Ordering Facility: [facility] Address: [address] [place] [address] Performed By: #### 2 4356-8 #### [facility] CLIA [id number] [address] Protein (U) [Mass/Vol] Negative Normal Negative [facility] Comment on above: Order Comment: Speci men Type: URINE SPECIMEN Ordering Facility: [facility] Address: [address] [place] [address] Performed By: #### 2 4356-8 #### [facility] CLIA [id number] [address] RBC LM.HPF (Urine sed) [#/Area] 0-3 /HPF Normal 0-3 /HPF [facility] Comment on above: Order Comment: Speci men Type: URINE SPECIMEN Ordering Facility: [facility] Address: [address] [place] [address] Performed By: #### 2 4356-8 #### [facility] CLIA [id number] [address] Specific gravity (U) [Rel density] 1.015 Normal 1.005-1.030 [facility] Comment on above: Order Comment: Speci men Type: URINE SPECIMEN Ordering Facility: [facility] Address: [address] [place] [address] Performed By: #### 2 4356-8 #### [facility] CLIA [id number] [address] Urobilinogen Ql (U) 0.2 EU/dL Normal 0.2-1.0 EU/dL [facility] Comment on above: Order Comment: Speci men Type: URINE SPECIMEN Ordering Facility: [facility] Address: [address] [place] [address] Performed By: #### 2 4356-8 #### [facility] CLIA [id number] [address] WBC LM.HPF (Urine sed) [#/Area] 0-5 /HPF Normal 0-5 /HPF [facility] Comment on above: Order Comment: Speci men Type: URINE SPECIMEN Ordering Facility: [facility] Address: [address] [place] [address] Performed By: #### 2 4356-8 #### [facility] CLIA [id number] [address] [place] [address] [place] [facility] XR CHEST 1V FRONTALon 2021 XR CHEST [...] shoulder arthroplasty. IMPRESSION: No acute radiographic abnormality. Agile Tester: PSCB Transcribe Date/Time: Jan 17 2022 2:49P Dictated by : ELOY RICH MD This examination was interpreted and the report reviewed and electronically signed by: ELOY RICH MD on Jan 17 2022 2:50PM EST [id number] Normal [facility] AMBROSE SCREENING W Joshua 12-31 [facility] Vital Signs Date Time Vital Sign Value Performing Clinician Facility 01-16-2025 10:34-0400 Body height 154.[address] Vini Sparks DO Work Phone: [facility] 01-16-2025 10:34-0400 Body mass index (BMI) [Ratio] 30.4 kg/m2 Dr. Vini Sparks DO Work Phone: [facility] 01-16-2025 10:34-0400 Body weight 73.[address] Vini Sparks DO Work Phone: [facility] 01-16-2025 10:34-0400 Diastolic blood pressure 91 mm[Hg] Dr. Vini Sparks DO Work Phone: [facility] 01-16-2025 10:34-0400 Heart rate 93 /min Dr. Vini Sparks DO Work Phone: 1(834)119-120072 [place] [address] 01-16-2025 10:34-0400 Respiratory rate 18 /min Dr. Vini Sparks DO Work Phone: 6(056)631-620872 [place] [address] 01-16-2025 10:34-0400 SaO2% (BldA) [Mass fraction] 96 % Dr. Vini Sparks DO Work Phone: 7(670)002-392972 [place] [address] 01-16-2025 10:34-0400 Systolic blood pressure 133 mm[Hg] Dr. Vini Sparks DO Work Phone: 4(552)592-826972 [place] [address] 12-12-2024 08:30-0400 Body height 154.[address] Vini Sparks DO Work Phone: 5(678)128-051772 [place] [address] 12-12-2024 08:30-0400 Body mass index (BMI) [Ratio] 30.9 kg/m2 Dr. Vini Sparks DO Work Phone: 7(977)018-604672 [place] [address] 12-12-2024 08:30-0400 Body weight 74.[address] Vini Sparks DO Work Phone: 5(408)550-678472 [place] [address] 12-12-2024 08:30-0400 Diastolic blood pressure 90 mm[Hg] Dr. Vini Sparks DO Work Phone: 6(747)167-819772 [place] [address] 12-12-2024 08:30-0400 Heart rate 74 /min Dr. Vini Sparks DO Work Phone: 3(141)501-660072 [place] [address] 12-12-2024 08:30-0400 Respiratory rate 16 /min Dr. Vini Sparks DO Work Phone: 6(202)618-404172 [place] [address] 12-12-2024 08:30-0400 Systolic blood pressure 140 mm[Hg] Dr. Vini Sparks DO Work Phone: 5(553)202-261272 [place] [address] 10-15-2024 13:14-0400 Body height 154.[address] Vini Sparks DO Work Phone: 7(376)173-245272 [place] [address] 10-15-2024 13:14-0400 Body mass index (BMI) [Ratio] 30.6 kg/m2 Dr. Vini Sparks DO Work Phone: [facility] 10-15-2024 13:14-0400 Body weight 73.[address] Vini Sparks DO Work Phone: [facility] 10-15-2024 13:14-0400 Diastolic blood pressure 76 mm[Hg] Dr. Vini Sparks DO Work Phone: 1(462)760-906272 [place] [address] 10-15-2024 13:14-0400 Heart rate 86 /min Dr. Vini Sparks DO Work Phone: 3(111)144-492972 [place] [address] 10-15-2024 13:14-0400 Respiratory rate 18 /min Dr. Vini Sparks DO Work Phone: 0(376)488-381372 [place] [address] 10-15-2024 13:14-0400 SaO2% (BldA) [Mass fraction] 95 % Dr. Vini Sparks DO Work Phone: 4(377)509-096072 [place] [address] 10-15-2024 13:14-0400 Systolic blood pressure 114 mm[Hg] Dr. Vini Sparks DO Work Phone: 8(379)676-082372 [place] [address] 08-28-2024 11:47-0400 Body height 156 cm Vini Sparks DO Work Phone: [facility] 08-28-2024 11:47-0400 Body mass index (BMI) [Ratio] 30.75 kg/m2 Vini Sparks DO Work Phone: [facility] 08-28-2024 11:47-0400 Body temperature 97 [degF] Vini Sparks DO Work Phone: [facility] 08-28-2024 11:47-0400 Body weight 74.84 kg Vnii Sparks DO Work Phone: [facility] 08-28-2024 11:47-0400 Diastolic blood pressure 80 mm[Hg] Vini Sparks DO Work Phone: [facility] 08-28-2024 11:47-0400 Heart rate 76 /min Vini Sparks DO Work Phone: [facility] 08-28-2024 11:47-0400 Respiratory rate 16 /min Vini Sparks DO Work Phone: [facility] 08-28-2024 11:47-0400 Systolic blood pressure 120 mm[Hg] Vini Sparks DO Work Phone: [facility] 07-11-2024 14:31-0400 Body mass index (BMI) [Ratio] 30.7 kg/m2 Siva Knapp MD Work Phone: [facility] 07-11-2024 14:31-0400 Body weight 74.7 kg Siva Knapp MD Work Phone: [facility] 07-11-2024 14:31-0400 Diastolic blood pressure 84 mm[Hg] Siva Knapp MD Work Phone: [facility] 07-11-2024 14:31-0400 Heart rate 60 /min Siva Knapp MD Work Phone: [facility] 07-11-2024 14:31-0400 Respiratory rate 18 /min Siva Knapp MD Work Phone: [facility] 07-11-2024 14:31-0400 Systolic blood pressure 130 mm[Hg] Siva Knapp MD Work Phone: [facility] 02-26-2024 10:32-0500 Body mass index (BMI) [Ratio] 31.5 kg/m2 Vini Sparks DO Work Phone: [facility] 02-26-2024 10:32-0500 Body temperature 97 [degF] Vini Sparks DO Work Phone: [facility] 02-26-2024 10:32-0500 Body weight 76.66 kg Vini Sparks DO Work Phone: [facility] 02-26-2024 10:32-0500 Diastolic blood pressure 80 mm[Hg] Vini Sparks DO Work Phone: [facility] 02-26-2024 10:32-0500 Heart rate 60 /min Vini Sparks DO Work Phone: [facility] 02-26-2024 10:32-0500 Respiratory rate 16 /min Vini Sparks DO Work Phone: [facility] 02-26-2024 10:32-0500 Systolic blood pressure 120 mm[Hg] Vini Sparks DO Work Phone: [facility] 12-04-2023 11:24-0400 Body mass index (BMI) [Ratio] 31.81 kg/m2 [place] [employer] MANAGER Work Phone: [facility] 12-04-2023 11:24-0400 Body temperature 97.5 [degF] 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 [employer]RICT MANAGER Work Phone: [facility] 12-04-2023 11:24-0400 Body weight 77.4 kg 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 [employer]RICT MANAGER Work Phone: [facility] 12-04-2023 11:24-0400 Diastolic blood pressure 70 mm[Hg] [place] [employer]DISTRICT MANAGER Work Phone: [facility] 12-04-2023 11:24-0400 Heart rate 55 /min [place] [employer]DISTRICT MANAGER Work Phone: [facility] 12-04-2023 11:24-0400 Systolic blood pressure 143 mm[Hg] 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 [employer]RICT MANAGER Work Phone: [facility] 08-22-2023 10:37-0400 Body mass index (BMI) [Ratio] 32.25 kg/m2 Vini Sparks DO Work Phone: [facility] 08-22-2023 10:37-0400 Body temperature 97.2 [degF] Vini Sparks DO Work Phone: [facility] 08-22-2023 10:37-0400 Body weight 78.47 kg Vini Sparks DO Work Phone: [facility] 08-22-2023 10:37-0400 Diastolic blood pressure 80 mm[Hg] Vini Sparks DO Work Phone: [facility] 08-22-2023 10:37-0400 Heart rate 60 /min Vini Sparks DO Work Phone: [facility] 08-22-2023 10:37-0400 Respiratory rate 16 /min Vini Sparks DO Work Phone: [facility] 08-22-2023 10:37-0400 Systolic blood pressure 130 mm[Hg] Vini Sparks DO Work Phone: [facility] 06-29-2023 11:37-0400 Body temperature 97.9 [degF] Patience Praisler-Wood [employer] MANAGER Work Phone: [facility] 06-29-2023 11:37-0400 Body weight 78.2 kg Patience Praisler-[employer]RICT MANAGER Work Phone: [facility] 06-29-2023 11:37-0400 Diastolic blood pressure 72 mm[Hg] Patience Praisler-[employer]RICT MANAGER Work Phone: [facility] 06-29-2023 11:37-0400 Heart rate 63 /min Patience Praisler-Wood [employer]RICT MANAGER Work Phone: [facility] 06-29-2023 11:37-0400 Respiratory rate 16 /min Patience Praisler-[employer]RICT MANAGER Work Phone: [facility] 06-29-2023 11:37-0400 SaO2% (BldA) [Mass fraction] 96 % Patience Praisler-Wood [employer]DISTRICT MANAGER Work Phone: [facility] 06-29-2023 11:37-0400 Systolic blood pressure 128 mm[Hg] Patience P[employer]ler[employer] MANAGER Work Phone: [facility] 02-13-2023 13:00-0400 Body temperature 97.59 [degF] Susanna Older [employer]RICT MANAGER Work Phone: [facility] 12-02-2022 11:16-0400 Body height 156 cm [place] [employer]DISTRICT MANAGER Work Phone: [facility] 12-02-2022 11:16-0400 Body temperature 98.1 [degF] [place] [employer]RICT MANAGER Work Phone: [facility] 12-02-2022 11:16-0400 Body weight 78.93 kg 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 [employer]RICT MANAGER Work Phone: [facility] 12-02-2022 11:16-0400 Diastolic blood pressure 67 mm[Hg] [place] [employer]DISTRICT MANAGER Work Phone: [facility] 12-02-2022 11:16-0400 Heart rate 59 /min [place] [employer]DISTRICT MANAGER Work Phone: [facility] 12-02-2022 11:16-0400 SaO2% (BldA) [Mass fraction] 98 % 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 [employer]DISTRICT MANAGER Work Phone: [facility] 12-02-2022 11:16-0400 Systolic blood pressure 128 mm[Hg] [place] [employer]RICT MANAGER Work Phone: [facility] 08-15-2022 10:41-0400 Body temperature 96.6 [degF] Vini Sparks DO Work Phone: [facility] 08-15-2022 10:41-0400 Body weight 78.47 kg Vini Sparks DO Work Phone: [facility] 08-15-2022 10:41-0400 Diastolic blood pressure 84 mm[Hg] Vini Sparks DO Work Phone: [facility] 08-15-2022 10:41-0400 Heart rate 56 /min Vini Sparks DO Work Phone: [facility] 08-15-2022 10:41-0400 Respiratory rate 20 /min Vini Sparks DO Work Phone: [facility] 08-15-2022 10:41-0400 Systolic blood pressure 132 mm[Hg] Vini Sparks DO Work Phone: [facility] 06-13-2022 11:06-0500 Body weight 79.47 kg Radha Rhiannon [employer] MANAGER Work Phone: [facility] 06-13-2022 11:06-0500 Diastolic blood pressure 78 mm[Hg] Radha Rhiannon [employer] MANAGER Work Phone: [facility] 06-13-2022 11:06-0500 Heart rate 51 /min Radha Rhiannon [employer] MANAGER Work Phone: [facility] 06-13-2022 11:06-0500 SaO2% (BldA) [Mass fraction] 96 % Radha Rhiannon [employer]RICT MANAGER Work Phone: [facility] 06-13-2022 11:06-0500 Systolic blood pressure 124 mm[Hg] Radha Rhiannon [employer] MANAGER Work Phone: [facility] 01-21-2022 11:10-0400 Body weight 76.3 kg Ayesha Zurawick [employer]RICT MANAGER Work Phone: [facility] 01-21-2022 11:10-0400 Diastolic blood pressure 80 mm[Hg] Ayesha Zurawick [employer] MANAGER Work Phone: [facility] 01-21-2022 11:10-0400 Heart rate 53 /min Ayesha Zurawick [employer]RICT MANAGER Work Phone: [facility] 01-21-2022 11:10-0400 Respiratory rate 14 /min Ayesha Zurawick [employer]RICT MANAGER Work Phone: [facility] 01-21-2022 11:10-0400 SaO2% (BldA) [Mass fraction] 100 % Ayesha Zurawick [employer]DISTRICT MANAGER Work Phone: [facility] 01-21-2022 11:10-0400 Systolic blood pressure 170 mm[Hg] Ayesha Zurawick [employer] MANAGER Work Phone: [facility] 01-03-2022 14:16-0400 Body weight 76.66 kg Yamilexhof [employer]RICT MANAGER Work Phone: [facility] 01-03-2022 14:16-0400 Diastolic blood pressure 88 mm[Hg] Tannhof [employer] MANAGER Work Phone: [facility] 01-03-2022 14:16-0400 Heart rate 61 /min raquel Kaminskihof [employer]RICT MANAGER Work Phone: [facility] 01-03-2022 14:16-0400 Respiratory rate 16 /min Ashley Kaminskihof [employer]DISTRICT MANAGER Work Phone: [facility] 01-03-2022 14:16-0400 SaO2% (BldA) [Mass fraction] 98 % Ashley Kaminskihof [employer]DISTRICT MANAGER Work Phone: [facility] 01-03-2022 14:16-0400 Systolic blood pressure 138 mm[Hg] raquel Kaminskihof [employer]RICT MANAGER Work Phone: [facility] 12-14-2021 12:26-0400 Body temperature 97.5 [degF] Vini Sparks DO Work Phone: [facility] 12-14-2021 12:26-0400 Body weight 77.11 kg Vini Sparks DO Work Phone: [facility] 12-14-2021 12:26-0400 Diastolic blood pressure 70 mm[Hg] Vini Sparks DO Work Phone: [facility] 12-14-2021 12:26-0400 Heart rate 64 /min Vini Sparks DO Work Phone: [facility] 12-14-2021 12:26-0400 Respiratory rate 16 /min Vini Sparks DO Work Phone: [facility] 12-14-2021 12:26-0400 Systolic blood pressure 120 mm[Hg] Vini Sparks DO Work Phone: [facility] 12-02-2021 11:27-0400 Body height 157.5 cm 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 [employer] MANAGER Work Phone: [facility] 12-02-2021 11:27-0400 Body temperature 97.59 [degF] 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 [employer]RICT MANAGER Work Phone: [facility] 12-02-2021 11:27-0400 Body weight 77.56 kg [place] [employer]DISTRICT MANAGER Work Phone: [facility] 12-02-2021 11:27-0400 Diastolic blood pressure 76 mm[Hg] [place]o [employer]DISTRICT MANAGER Work Phone: [facility] 12-02-2021 11:27-0400 Heart rate 58 /min 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 [employer]DISTRICT MANAGER Work Phone: [facility] 12-02-2021 11:27-0400 Systolic blood pressure 149 mm[Hg] [place] [employer]RICT MANAGER Work Phone: [facility] 10-21-2021 13:07-0400 Body weight 77.29 kg Ayesha Zurawick [employer]RICT MANAGER Work Phone: [facility] 10-21-2021 13:07-0400 Diastolic blood pressure 64 mm[Hg] Ayesha Zurawick [employer]DISTRICT MANAGER Work Phone: [facility] 10-21-2021 13:07-0400 Heart rate 68 /min Ayesha Zurawick [employer]DISTRICT MANAGER Work Phone: [facility] 10-21-2021 13:07-0400 Respiratory rate 18 /min Ayesha Zurawick [employer]RICT MANAGER Work Phone: [facility] 10-21-2021 13:07-0400 Systolic blood pressure 124 mm[Hg] Ayesha Zurawick [employer] MANAGER Work Phone: [facility] 09-24-2021 12:51-0400 Body weight 77.11 kg Radha Rhiannon [employer] MANAGER Work Phone: [facility] 09-24-2021 12:51-0400 Diastolic blood pressure 86 mm[Hg] Radha Rhiannon [employer] MANAGER Work Phone: [facility] 09-24-2021 12:51-0400 Heart rate 54 /min Radha Jurado [employer] MANAGER Work Phone: [facility] 09-24-2021 12:51-0400 Respiratory rate 16 /min Radha Jurado [employer]RICT MANAGER Work Phone: [facility] 09-24-2021 12:51-0400 SaO2% (BldA) [Mass fraction] 97 % Radha Jurado [employer]DISTRICT MANAGER Work Phone: [facility] 09-24-2021 12:51-0400 Systolic blood pressure 142 mm[Hg] Radhazenobia Jurado [employer]DISTRICT MANAGER Work Phone: [facility] Encounters Encounter Date Encounter Type Care Provider Facility Start: 01-28-2025 ambulatory [facility] Start: 01-28-2025 End: 01-28-2025 ambulatory Srinath Bustos Facility:[facility] Start: 01-20-2025 End: 01-20-[address] Srinath Bustos MD -[facility] Work Phone: Start: 01-20-2025 End: 01-20-[address] Vini Sparks DO Work Phone: -[facility] Start: 01-20-2025 End: 01-20-2025 ambulatory [facility] Facility:[facility] Start: 01-16-2025 End: 01-16-[address] Srinath Bustos MD -[facility] Work Phone: Start: 01-16-2025 End: 01-16-[address] Vini Sparks DO Work Phone: -[facility] Start: 01-13-2025 ambulatory Vini Marin y:[facility] Start: 01-13-2025 Non-patient / Non-visit Dr. Felisha SIMMS -[facility] Start: 01-13-2025 End: 01-13-[address] Vini Sparks DO Work Phone: -[facility] Start: 01-13-2025 End: 01-13-2025 Patient encounter procedure Sarah Garcia PA -[facility] Work Phone: Start: 01-13-2025 End: 01-13-2025 ambulatory Sarah PEARCE Facility:[facility] Start: 01-10-2025 ambulatory ELISSA NEGRO Facilit y:[facility] Start: 12-17-2024 End: 12-17-2024 ambulatory Liane Mosher MA [facility] Start: 12-17-2024 End: 12-17-2024 Patient encounter procedure Liane Mosher MA [facility] Comment on above: Population Health Na vigation Outreach ([place] ) Start: 12-12-2024 End: 12-12-2024 Patient encounter procedure Sarah PEARCE -[facility] Work Phone: Start: 12-12-2024 End: 12-12-[address] Vini Sparks DO Work Phone: -[facility] Start: 11-05-2024 End: 11-05-2024 Refill Vini Sparks DO Work Phone: [facility] Comment on above: Refill Request Start: 10-15-2024 End: 10-15-[address] Srinath Bustos MD -[facility] Work Phone: Start: 10-15-2024 End: 10-15-[address] Vini Sparks DO Work Phone: -[facility] Start: 10-10-2024 End: 10-10-2024 ambulatory VINI SPARKS Facility:[facility] Start: 09-26-2024 End: 10-17-2024 Telephone encounter Vini Sparks DO Work Phone: [facility] Comment on above: Medication Request Start: 09-18-2024 End: 09-18-2024 Refill Vini Sparks DO Work Phone: [facility] Comment on above: Refill Request Start: 09-17-2024 End: 09-17-2024 Telephone encounter Vini Fuenteson DO Work Phone: [facility] Start: 09-16-2024 End: 09-16-2024 Follow-up encounter Ayesha Tran APRN.DISTRICT MANAGER Work Phone: [facility] Start: 09-16-2024 End: 09-16-2024 ambulatory VINI SPARKS Facility:[facility] Start: 09-14-2024 End: 09-14-2024 ambulatory AYESHA TRAN Facility:[facility] Start: 09-12-2024 End: 09-13-2024 Follow-up encounter Ayesha Tran [employer] MANAGER Work Phone: [facility] Comment on above: Results Start: 09-04-2024 End: 09-13-2024 Telephone encounter Vini Fuenteson DO Work Phone: [facility] Comment on above: Medication Problem; cost of Eliquis Start: 08-29-2024 End: 08-29-2024 ambulatory VINI MICHELRISON Facility:[facility] Start: 08-28-2024 End: 08-28-2024 Telephone encounter Vini Fuenteson DO Work Phone: [facility] Start: 08-28-2024 End: 08-28-2024 ambulatory VINI FUENTESON Facility:[facility] Start: 08-28-2024 End: 08-28-2024 Patient encounter procedure Vini Michelrison DO Work Phone: [facility] Comment on above: Medicare annual well ness visit, subsequent (Primary Dx); HYPERTENSION BENIGN; Carotid atherosclerosis, bilateral; Palpitations; PALMA (generalized anxiety disorder); Dysthymia; Other chest pain; Melena; Chronic pain of both knees; History of total knee arthroplasty, bilateral; Chronic atrial fibrillation (HCC); Atrial fibrillation, unspecified type (HCC) Start: 07-11-2024 End: 07-11-2024 ambulatory VINI SPARKS Facility:[facility] Start: 07-11-2024 End: 07-11-2024 Office outpatient visit 25 minutes Siva Knapp MD Work Phone: [facility] [place] Comment on above: PALMA (generalized anx iety disorder) (Primary Dx); Dysthymia Start: 07-10-2024 End: 07-10-2024 ambulatory Chikis Leone RN NURSE MACHINE MAINTENANCE SUPERVISOR Comment on above: Anxiety Start: 07-10-2024 End: 07-10-2024 Patient encounter procedure Dorita Hopkins MA [facility] [place] Comment on above: Population Health Na vigation Outreach ([facility] at [facility] - [facility] ) Start: 03-04-2024 End: 03-04-2024 ambulatory Owen Lopez RN Work Phone: [employer] In[employer] Management Start: 02-29-2024 End: 03-05-2024 Telephone encounter Vini Sparks DO Work Phone: [facility] [place] Comment on above: clarify directions o n Sertraline 100 mg rx Start: 02-28-2024 End: 02-28-2024 Telephone encounter Vini Sparks DO Work Phone: [facility] [place] Comment on above: Medication Problem Start: 02-26-2024 End: 02-26-2024 Refill Vini Fuenteson DO Work Phone: [facility] [place] Comment on above: Med Change Request Start: 02-26-2024 End: 02-26-2024 Patient encounter procedure Vini Fuenteson DO Work Phone: [facility] [place] Comment on above: Hypothyroidism, acqu ired (Primary Dx); HYPERTENSION BENIGN; Need for influenza vaccination; Dyslipidemia; Dysthymia; Need for COVID-19 vaccine; Depression, recurrent (HCC); Vitamin B12 deficiency; Vitamin D deficiency; Hyperglycemia; Fatigue, unspecified type Start: 02-26-2024 End: 02-26-2024 ambulatory VINI SPARKS Facility:[facility] Start: 02-19-2024 End: 02-19-2024 ambulatory VINI SPARKS Facility:[facility] Start: 02-09-2024 End: 02-12-2024 Refill Vini Fuenteson DO Work Phone: [facility] [place] Comment on above: Refill Request Lab Orders Start: 01-27-2024 End: 01-27-2024 ambulatory Owen Lopez RN Work Phone: [employer] In[employer] Management Comment on above: community monitoring outreach (CDM telephonic) Start: 01-11-2024 End: 01-12-2024 Telephone encounter 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 APRN.CNP Work Phone: Hematology/Oncology Start: 01-10-2024 End: 01-11-2024 Documentation procedure Mammography Coordinator [facility] Department Start: 01-10-2024 End: 01-11-2024 Letter encounter Mammography Coordinator [facility] Start: 01-08-2024 End: 01-08-2024 Subsequent hospital visit by physician Screen Mammo [facility] Comment on above: Personal history of breast cancer [Z85.3] Start: 12-29-2023 End: 12-29-2023 ambulatory Owen Lopez RN Work Phone: [employer] In[employer] Management Comment on above: community monitoring outreach (CDM telephonic) Start: 12-20-2023 End: 12-20-2023 ambulatory Owen Lopez RN Work Phone: [employer] In[employer] Management Comment on above: community monitoring outreach (CDM telephonic) Start: 12-04-2023 End: 12-04-2023 Telephone encounter Vini Eulalio Sparks Work Phone: [facility] Comment on above: Patient Update Start: 12-04-2023 End: 12-04-2023 ambulatory 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 APRN.CNP Work Phone: Hematology/Oncology Comment on above: Personal history of breast cancer (Primary Dx); Encounter for screening mammogram for high-risk patient Start: 12-04-2023 End: 12-04-2023 Patient encounter procedure 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 APRN.CNP Work Phone: Hematology/Oncology Start: 11-23-2023 ambulatory Owen Echavarria Work Phone: [employer] Comment on above: community monitoring outreach (CDM telephonic) Start: 11-17-2023 Refill Vini vicente DO Work Phone: [facility] [place] Comment on above: Refill Request Start: 10-26-2023 ambulatory Owen Garcia Piar R N Work Phone: [employer] In[employer] Management Comment on above: community monitoring outreach (CDM telephonic) Start: 10-20-2023 Refill Vini vicente DO Work Phone: [facility] [place] Comment on above: Refill Request Start: 10-11-2023 ambulatory Owen Garcia Piar R N Work Phone: [employer] In[employer] Management Comment on above: community monitoring outreach (CDM telephonic) Start: 09-13-2023 ambulatory Owen Garcia Piar R N Work Phone: [employer] In[employer] Management Comment on above: community monitoring outreach (CDM telephonic) Refill Request Start: 08-23-2023 Telephone encounter Ayesha vicente [employer]DISTRICT MANAGER Work Phone: [facility] Comment on above: Results Start: 08-22-2023 End: 08-22-2023 Patient encounter procedure Vini Sparks DO Work Phone: [facility] Comment on above: Dyslipidemia (Primar y Dx); Dysthymia; Essential hypertension, benign; Hypothyroidism, acquired; Vitamin D deficiency; Vitamin B12 deficiency; Hyperglycemia; Depression, recurrent (HCC); Personal history of alcoholism (HCC); 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 in female, estrogen receptor positive (HCC) Start: 08-16-2023 ambulatory Owen Garcia Chrissar R N Work Phone: [employer] Management Comment on above: community monitoring outreach (CDM telephonc) Start: 08-02-2023 ambulatory Owen G Chrissar R N Work Phone: [employer] In[employer] Management Comment on above: community monitoring outreach (CDM telephonic) Refill Request Start: 07-05-2023 ambulatory Owen Garcia Piar R N Work Phone: [employer] Instructor Management Comment on above: community monitoring outreach (CDM telephonic) Start: 06-30-2023 Telephone encounter Gray duran [employer]DISTRICT MANAGER Work Phone: [facility] Comment on above: Results Start: 06-29-2023 End: 06-29-2023 Patient encounter procedure Patience Winter [employer].DISTRICT MANAGER Work Phone: [facility] Comment on above: Viral URI with cough (Primary Dx); Exposure to COVID-19 virus Start: 05-23-2023 ambulatory Owen Lopez R N Work Phone: [employer] In[employer] Management Comment on above: community monitoring outreach (CD telephonic) Start: 03-21-2023 ambulatory Owen Lopez R N Work Phone: [employer] Instructor Management Comment on above: community monitoring outreach (CD telephonic) Start: 03-20-2023 Refill Radha Stnickishayla tess [employer].DISTRICT MANAGER Work Phone: [facility] [place] Comment on above: Refill Request Start: 02-14-2023 Telephone encounter Elissa Ja milian [employer].DISTRICT MANAGER Work Phone: Hematology/Oncology Comment on above: Refill Request Start: 02-13-2023 End: 02-13-2023 Patient encounter procedure Susanna Laguna [employer].DISTRICT MANAGER Work Phone: [facility] [place] Comment on above: Encounter for immuni zation (Primary Dx) Start: 02-07-2023 Refill Ava muñoz PA-C Work Phone: [facility] [place] Comment on above: Refill Request Start: 02-01-2023 Refill Vini Calderon son DO Work Phone: [facility] [place] Comment on above: Refill Request Start: 01-31-2023 ambulatory Owen Lopez R N Work Phone: [employer] Comment on above: community monitoring outreach (CD telephonic) Start: 01-10-2023 Telephone encounter Patience Andre [employer].DISTRICT MANAGER Work Phone: [place] [facility] Comment on above: Results Start: 01-09-2023 End: 01-09-2023 Subsequent hospital visit by physician Xr [facility] [place] Work Phone: Radiology Comment on above: Acute cough [R05.1] Start: 01-06-2023 Refill Vini vicente DO Work Phone: [facility] Comment on above: Refill Request Results Start: 01-05-2023 End: 01-05-2023 Subsequent hospital visit by physician Screen Mammo [facility] Comment on above: 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, estrogen receptor positive (HCC) [C50.112, Z17.0] Start: 01-03-2023 ambulatory Owen Lopez R N Work Phone: [employer] Comment on above: community monitoring outreach (CDM telephonic) Start: 12-06-2022 ambulatory Owen Lopez R N Work Phone: [employer] In[employer] Management Comment on above: community monitoring outreach (CDM telephonic) Start: 12-05-2022 Refill Vini vicente DO Work Phone: [facility] Comment on above: Refill Request Start: 12-02-2022 End: 12-02-2022 ambulatory 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 APRN.DISTRICT MANAGER Work Phone: Hematology/Oncology Comment on above: 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, estrogen receptor positive (HCC) (Primary Dx); Encounter for screening mammogram for high-risk patient; Depression, recurrent (HCC) Start: 12-02-2022 End: 12-02-2022 Patient encounter procedure 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 [employer]DISTRICT MANAGER Work Phone: [place] [facility] Start: 11-11-2022 ambulatory Owen Lopez R N Work Phone: Veter[employer] Technology Instructor Management Comment on above: community monitoring outreach (CDM telephonic) Start: 10-14-2022 ambulatory Owen Lopez R N Work Phone: [employer] Instructor Management Comment on above: community monitoring outreach (CDM telephonic) Start: 10-04-2022 Refill Vini vicente DO Work Phone: [facility] Comment on above: Refill Request Start: 09-28-2022 Refill Vini vicente DO Work Phone: [facility] Comment on above: Refill Request Start: 09-15-2022 ambulatory Owen Lopez R N Work Phone: [employer] Management Comment on above: community monitoring outreach (CDM telephonic) Start: 08-18-2022 ambulatory Owen Banerjeear R N Work Phone: [employer] Instructor Management Comment on above: community monitoring outreach (CDM telephonic) Start: 08-16-2022 Telephone encounter Vini jimenes DO Work Phone: [facility] Comment on above: Results Start: 08-15-2022 End: 08-15-2022 Patient encounter procedure Vini Sparks DO Work Phone: [facility] Comment on above: Essential hypertensi on, benign (Primary Dx); Dyslipidemia; Hypothyroidism, acquired; Hyperkalemia; Vitamin B12 deficiency; Vitamin D deficiency; Hyperglycemia; Personal history of alcoholism (HCC); PALMA (generalized anxiety disorder); 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 in female, estrogen receptor positive (HCC); Depression, recurrent (HCC) Start: 08-09-2022 Refill Vini vicente DO Work Phone: [facility] Comment on above: Refill Request Start: 08-03-2022 ambulatory Owen Lopez R N Work Phone: [employer] Instructor Management Comment on above: community monitoring outreach (CDM telephonic) Start: 07-27-2022 ambulatory Erik Smith RN NURSE MACHINE MAINTENANCE SUPERVISOR Comment on above: Patient Update Start: 07-18-2022 Refill Radha pulido APRN.CNP Work Phone: [facility] Comment on above: Refill Request Start: 07-06-2022 ambulatory Owen Lopez R N Work Phone: [employer] In[employer] Management Comment on above: community monitoring outreach (CDM telephonic) Start: 06-13-2022 End: 06-13-2022 Patient encounter procedure Radha Rhiannon [employer]DISTRICT MANAGER Work Phone: [facility] [place] Comment on above: Dysthymia Start: 05-19-2022 Telephone encounter Vini jimenes DO Work Phone: [facility] [place] Comment on above: Insurance Authorizat ion Start: 05-16-2022 Transcribe Orders Ciara Marcelo MA Patient Services Comment on above: Malignant neoplasm o f central portion of left breast (HCC) (Primary Dx) Start: 05-12-2022 ambulatory Liliana Love RN Work Phone: NURSE MACHINE MAINTENANCE SUPERVISOR Comment on above: Mood Swings Start: 05-03-2022 Telephone encounter Elissa milian [employer]DISTRICT MANAGER Work Phone: Hematology/Oncology Comment on above: Orders Start: 04-27-2022 ambulatory Peace Hylton RN Work Phone: Veterinary [employer] Instructor Management Comment on above: cdm (enrollment) Start: 04-25-2022 Refill Viin Calderon jules DO Work Phone: [facility] [place] Comment on above: Refill Request Start: 02-02-2022 Telephone encounter Vini jimenes DO Work Phone: [facility] [place] Comment on above: Results Start: 01-31-2022 Telephone encounter Ayesha honeycutt [employer]DISTRICT MANAGER Work Phone: [facility] [place] Comment on above: Results Start: 01-27-2022 Telephone encounter Ayesha honeycutt [employer]DISTRICT MANAGER Work Phone: [facility] [place] Comment on above: Results Start: 01-21-2022 End: 01-21-2022 Patient encounter procedure Ayesha Jefferson [employer].DISTRICT MANAGER Work Phone: [facility] [place] Comment on above: HYPERTENSION BENIGN (Primary Dx); Encounter for immunization; PALMA (generalized anxiety disorder); Headaches; Dyslipidemia; Hypothyroidism, acquired; Fatigue, unspecified type Start: 01-18-2022 End: 01-18-2022 Emergency department patient visit VINI Chrsitianson:[facility] Start: 01-18-2022 Telephone encounter Vini jimenes DO Work Phone: [facility] [place] Comment on above: Headache; Hypertensi on Start: 01-17-2022 End: 01-17-2022 Emergency department patient visit VINI SPARKS Facility:[facility] Start: 01-03-2022 End: 01-03-2022 Patient encounter procedure Ashley Flores APRN.DISTRICT MANAGER Work Phone: [facility] [place] Comment on above: HYPERTENSION BENIGN (Primary Dx); Ear foreign body, left, initial encounter Start: 01-03-2022 ambulatory Vini vicente DO Work Phone: [facility] [place] Comment on above: Hypertension Start: 12-31-2021 Documentation procedure Mammog arlin Coordinator [facility] Start: 12-31-2021 Letter encounter Mammography Coordinator [facility] Start: 12-31-2021 Telephone encounter Elissa milian APRN.DISTRICT MANAGER Work Phone: Hematology/Oncology Comment on above: Results Start: 12-31-2021 End: 12-31-2021 Subsequent hospital visit by physician Screen Mammo [facility] Comment on above: 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, estrogen receptor positive (HCC) [C50.112, Z17.0] Start: 12-14-2021 End: 12-14-2021 Patient encounter procedure Vini Sparks DO Work Phone: [facility] [place] Comment on above: Anxious mood (Primar y Dx); Osteopenia, senile; Disorder of bone and articular cartilage; Disorder of bone density and structure, unspecified; Other specified disorders of bone density and structure, multiple sites ; Dysthymia; Vitamin D deficiency; HYPERTENSION BENIGN; Dyslipidemia; Hypothyroidism, acquired; Fatigue, unspecified type Start: 12-02-2021 End: 12-02-2021 ambulatory 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 [employer].DISTRICT MANAGER Work Phone: Hematology/Oncology Comment on above: 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, estrogen receptor positive (HCC) (Primary Dx); Encounter for screening mammogram for high-risk patient Start: 12-02-2021 End: 12-02-2021 Patient encounter procedure 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 [employer]DISTRICT MANAGER [facility] Start: 10-22-2021 Telephone encounter Ayesha Reeder yinka [employer].DISTRICT MANAGER Work Phone: [facility] Comment on above: Results Start: 10-21-2021 End: 10-21-2021 Patient encounter procedure Ayesha Jefferson [employer].DISTRICT MANAGER Work Phone: [facility] Comment on above: Anxious mood (Primar y Dx); Excessive sweating; Dysthymia; Vitamin D deficiency Start: 10-11-2021 Refill Vini vicente DO Work Phone: [facility] Comment on above: Refill Request Start: 09-29-2021 Telephone encounter Ayesha honeycutt [employer]DISTRICT MANAGER Work Phone: [facility] Comment on above: Results Start: 09-24-2021 End: 09-24-2021 Patient encounter procedure [facility] Start: 09-24-2021 Telephone encounter Radha Machado [employer].DISTRICT MANAGER Work Phone: [facility] Comment on above: Results Start: 09-24-2021 End: 09-24-2021 Patient encounter procedure Radha Jurado [employer].DISTRICT MANAGER Work Phone: [facility] Comment on above: Transient cerebral i schemia, unspecified type (Primary Dx); Generalized weakness; Aphasia; Blurred vision Procedures Date Procedure Procedure Detail Performing Clinician Start: 01-13-2025 Cardiovascular stres s test using pharmacologic stress agent Dr. Vini Sparks DO Work Phone: Start: 08-28-2024 Ecg routine ecg w/le ast 12 lds i&r only Vini Sparks DO Work Phone: Start: 02-26-2024 [employer] COVI D-19 VACCINE AGE 12+ YR (COMIRNATY) Vini Sparks DO Work Phone: Start: 02-13-2023 [employer] COVI D-19 VACCINE ( SEASON) AGE 12+ YR Susanna Older [employer].DISTRICT MANAGER Work Phone: Start: 01-09-2023 Radiologic exam ches t 2 views Brendon Dong MD Work Phone: Start: 01-05-2023 Screening digital br east tomosynthesis bi 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 [employer].DISTRICT MANAGER Work Phone: Start: 01-21-2022 INFLUENZA SEASONAL QUADRIVALENT HIGH DOSE AGE 65+ Ayesha Li [employer].DISTRICT MANAGER Work Phone: Start: 12-31-2021 AMBROSE SCREENING W [facility] Da rbtavon Negro [employer].DISTRICT MANAGER Work Phone: Start: 09-24-2021 CT of head without contrast Plan of Treatment Date Care Activity Detail Author Start: 08-30-2027 [facility] Start: 02-18-2027 Diabetes Screening Diabetes Screenin g [facility] Start: 08-21-2026 Diabetes Screening Diabetes Screenin g [facility] Start: 02-13-2026 [facility] Start: 08-28-2025 Medicare Annual Well ness Visit Medicare Annual Wellness Visit [facility] Start: 08-15-2025 DIABETES SCREEN DIABETES SCREEN [facility] Start: 08-15-2025 Diabetes Screening Diabetes Screenin g [facility] Start: 02-28-2025 End: 02-28-2025 Patient encounter procedure 02/28/2025 12:40 PM EST Office Visit Family [facility] [place] [address] [facility] [place] [id number] Vnii Sparks DO [address] [facility] [place] [id number] Follow up 6 months [facility] Comment on above: Follow up 6 months Start: 01-28-2025 DIABETES SCREEN DIABETES SCREEN [facility] Start: 01-21-2025 DIABETES SCREEN DIABETES SCREEN [facility] Start: 01-20-2025 End: 01-20-2025 ambulatory 01/20/2025 11:00 AM EDT Visit (SP) Office Hematology/Oncology [address] [place] [address] 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 APRN.DISTRICT MANAGER [address] [place] [address] 1 YR OV/MAMM 01/10* Hematology/Oncology Comment on above: 1 YR OV/MAMM 01/10* Start: 01-20-2025 End: 01-20-2025 Evaluation of diagnostic study results [facility] Start: 01-17-2025 DIABETES SCREEN DIABETES SCREEN [facility] Start: 01-16-2025 Complete blood count [facility] Start: 01-16-2025 Evaluation of diagno stic study results [facility] Start: 01-16-2025 Thyroid stimulating hormone measurement [facility] Start: 01-16-2025 Thyroxine measurement [facility] Start: 01-10-2025 End: 02-09-2025 DBT Breast - bilateral screening AMBROSE SCREENING [facility] Radiology Routine 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 in female, estrogen receptor positive (HCC) Encounter for screening mammogram for high-risk patient Expected: 01/10/2025 (Approximate), Expires: 02/09/2025 [facility] Work Phone: Comment on above: Expected: 01/10/2025 (Approximate), Expires: 02/09/2025 Start: 01-10-2025 End: 01-10-2025 Patient encounter procedure 01/10/2025 11:10 AM EDT Appointment Mammogram [address] [place] [address] 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 in female, estrogen receptor positive (HCC) [C50.112, Z17.0]; Encounter for screening mammogram for high-risk patient [Z12.31] Mammogram Comment on above: 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, estrogen receptor positive (HCC) [C50.112, Z17.0]; Encounter for screening mammogram for high-risk patient [Z12.31] Start: 12-16-2024 Influenza vaccination Influenza Vacc ine (#1) [facility] Start: 10-21-2024 DIABETES SCREEN DIABETES SCREEN [facility] Start: 10-15-2024 Evaluation of diagno stic study results [facility] Start: 10-15-2024 Evaluation of diagno stic study results [facility] Start: 10-10-2024 End: 10-10-2024 Patient encounter procedure 10/10/2024 12:30 PM EDT Office Visit Vasculary Surgery [address] [place] [address] Carotid atherosclerosis, 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] Vasculary Surgery Comment on above: Carotid atherosclero sis, 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] Start: 09-16-2024 End: 09-16-2024 Patient encounter procedure 09/16/2024 1:00 PM EDT Office Visit Cardiology [address] [place] [address] Palpitations [R00.2] Cardiology Comment on above: Palpitations [R00.2] Start: 09-12-2024 End: 12-12-2024 Potassium [Moles/volume] in Serum or Plasma POTASSIUM Lab Routine Hyperkalemia Expected: 09/12/2024, Expires: 12/12/2024 [facility] Work Phone: Comment on above: Expected: 09/12/2024 , Expires: 12/12/2024 Start: 08-28-2024 End: 08-28-2024 Patient encounter procedure 08/28/2024 12:00 PM EDT Office Visit [facility] [place] [address] [place] [address] Vini Sparks DO [address] [place] [address] Medicare Wellness [facility] [place] Comment on above: Medicare Wellness Start: 08-25-2024 End: 11-24-2024 25-hydroxyvitamin D3 [Mass/volume] in Serum or Plasma VITAMIN D 25 HYDROXY Lab Routine Vitamin D deficiency Expected: 08/25/2024, Expires: 11/24/2024 [facility] Comment on above: Expected: 08/25/2024 , Expires: 11/24/2024 Start: 08-25-2024 End: 11-24-2024 CBC panel - Blood by Automated count COMPLETE BLOOD COUNT Lab Routine Hypothyroidism, acquired Expected: 08/25/2024, Expires: 11/24/2024 [facility] Comment on above: Expected: 08/25/2024 , Expires: 11/24/2024 Start: 08-25-2024 End: 11-24-2024 Cobalamin (Vitamin B12) [Mass/volume] in Serum or Plasma VITAMIN B12 Lab Routine Vitamin B12 deficiency Expected: 08/25/2024, Expires: 11/24/2024 [facility] Comment on above: Expected: 08/25/2024 , Expires: 11/24/2024 Start: 08-25-2024 End: 11-24-2024 Comprehensive metabolic 2000 panel - Serum or Plasma COMPREHENSIVE METABOLIC PANEL Lab Routine Hypothyroidism, acquired Expected: 08/25/2024, Expires: 11/24/2024 [facility] Comment on above: Expected: 08/25/2024 , Expires: 11/24/2024 Start: 08-25-2024 Covid-19 Vaccine () Covid-19 Vaccine () [facility] Start: 08-25-2024 End: 11-24-2024 Hemoglobin A1c in Blood HEMOGLOBIN A1C Lab Routine Hyperglycemia Expected: 08/25/2024, Expires: 11/24/2024 [facility] Comment on above: Expected: 08/25/2024 , Expires: 11/24/2024 Start: 08-25-2024 End: 11-24-2024 Lipid 1996 panel - Serum or Plasma LIPID PANEL BASIC Lab Routine Dyslipidemia Expected: 08/25/2024, Expires: 11/24/2024 [facility] Comment on above: Expected: 08/25/2024 , Expires: 11/24/2024 Start: 08-25-2024 End: 11-24-2024 Thyrotropin [Units/volume] in Serum or Plasma THYROID STIMULATING HORMONE Lab Routine Hypothyroidism, acquired Expected: 08/25/2024, Expires: 11/24/2024 [facility] Work Phone: Comment on above: Expected: 08/25/2024 , Expires: 11/24/2024 Start: 08-25-2024 End: 11-24-2024 Thyroxine (T4) free [Mass/volume] in Serum or Plasma T4 FREE/FREE THYROXINE Lab Routine Hypothyroidism, acquired Expected: 08/25/2024, Expires: 11/24/2024 [facility] Comment on above: Expected: 08/25/2024 , Expires: 11/24/2024 Start: 08-21-2024 Covid-19 Vaccine () Covid-19 Vaccine () [facility] Comment on above: Postponed from (Declined at this time) Start: 07-11-2024 End: 07-11-2024 Patient encounter procedure 07/11/2024 2:20 PM EDT Office Visit Family Mario [place] [address] [place] [address] Siva Knapp MD [address] [facility] [place], [place] [id number] [facility] Comment on above: Anxiety Start: 03-15-2024 DIABETES SCREEN DIABETES SCREEN [facility] Start: 02-26-2024 End: 02-26-2024 Patient encounter procedure 02/26/2024 10:40 AM EST Office Visit Family Mario [place] [address] [place] [address] Vini Sparks DO [address] [place] [address] 6 month follow up [facility] Mario [place] Comment on above: 6 month follow up Start: 02-10-2024 End: 05-11-2024 25-hydroxyvitamin D3 [Mass/volume] in Serum or Plasma VITAMIN D 25 HYDROXY Lab Routine Vitamin D deficiency Expected: 02/10/2024, Expires: 05/11/2024 [facility] Comment on above: Expected: 02/10/2024 , Expires: 05/11/2024 Start: 02-10-2024 End: 05-11-2024 CBC W Auto Differential panel - Blood COMPLETE BLOOD COUNT AND DIFFERENTIAL Lab Routine Dyslipidemia Expected: 02/10/2024, Expires: 05/11/2024 [facility] Comment on above: Expected: 02/10/2024 , Expires: 05/11/2024 Start: 02-10-2024 End: 05-11-2024 Cobalamin (Vitamin B12) [Mass/volume] in Serum or Plasma VITAMIN B12 Lab Routine Vitamin B12 deficiency Expected: 02/10/2024, Expires: 05/11/2024 [facility] Comment on above: Expected: 02/10/2024 , Expires: 05/11/2024 Start: 02-10-2024 End: 05-11-2024 Comprehensive metabolic 2000 panel - Serum or Plasma COMPREHENSIVE METABOLIC PANEL Lab Routine Dyslipidemia Expected: 02/10/2024, Expires: 05/11/2024 [facility] Work Phone: Comment on above: Expected: 02/10/2024 , Expires: 05/11/2024 Start: 02-10-2024 End: 05-11-2024 Lipid 1996 panel - Serum or Plasma LIPID PANEL BASIC Lab Routine Dyslipidemia Expected: 02/10/2024, Expires: 05/11/2024 [facility] Comment on above: Expected: 02/10/2024 , Expires: 05/11/2024 Start: 02-10-2024 End: 05-11-2024 Thyrotropin [Units/volume] in Serum or Plasma THYROID STIMULATING HORMONE Lab Routine Hypothyroidism, acquired Expected: 02/10/2024, Expires: 05/11/2024 [facility] Comment on above: Expected: 02/10/2024 , Expires: 05/11/2024 Start: 02-10-2024 End: 05-11-2024 Thyroxine (T4) free [Mass/volume] in Serum or Plasma T4 FREE/FREE THYROXINE Lab Routine Hypothyroidism, acquired Expected: 02/10/2024, Expires: 05/11/2024 [facility] Comment on above: Expected: 02/10/2024 , Expires: 05/11/2024 Start: 01-08-2024 End: 01-08-2024 Patient encounter procedure 01/08/2024 11:30 AM EDT Appointment Mammogram [address] [place] [address] Right- Personal history of breast cancer [Z85.3]; Encounter for screening mammogram for high-risk patient [Z12.31] Mammogram Comment on above: Right- Personal hist ory of breast cancer [Z85.3]; Encounter for screening mammogram for high-risk patient [Z12.31] Start: 12-17-2023 Covid-19 Vaccine ( season) Covid-19 Vaccine () [facility] Start: 12-17-2023 Covid-19 Vaccine () Covid-19 Vaccine () [facility] Start: 12-17-2023 Influenza vaccination Influenza Vacc ine (#1) [facility] Start: 12-04-2023 End: 12-04-2023 ambulatory 12/04/2023 11:30 AM EDT Visit (SP) Office Hematology/Oncology [address] [place] [id number] 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 APRN.DISTRICT MANAGER [address] [place] [id number] 1 YR OV/MAMM 01/05/23* Hematology/Oncology Comment on above: 1 YR OV/MAMM 01/05/23 * Start: 08-22-2023 End: 11-21-2023 25-hydroxyvitamin D3 [Mass/volume] in Serum or Plasma [facility] Work Phone: Comment on above: Expected: 08/22/2023 , Expires: 11/21/2023 Start: 08-22-2023 End: 11-21-2023 Hemoglobin A1c in Blood [facility] Comment on above: Expected: 08/22/2023 , Expires: 11/21/2023 Start: 08-22-2023 End: 08-22-2023 Patient encounter procedure 08/22/2023 10:40 AM EDT Office Visit [facility] [address] [place], [place] [phone] Vini Sparks DO [address] [place] [address] 6 month follow up [facility] Comment on above: 6 month follow up Start: 06-15-2023 Covid-19 Vaccine () Covid-19 Vaccine () [facility] Start: 02-15-2023 End: 04-17-2023 25-hydroxyvitamin D3 [Mass/volume] in Serum or Plasma VITAMIN D 25 HYDROXY Lab Routine Vitamin D deficiency Expected: 02/15/2023, Expires: 04/17/2023 [facility] Work Phone: Comment on above: Expected: 02/15/2023 , Expires: 04/17/2023 Start: 02-15-2023 End: 04-17-2023 CBC panel - Blood by Automated count CBC Lab Routine Essential hypertension, benign Dyslipidemia Expected: 02/15/2023, Expires: 04/17/2023 [facility] Work Phone: Comment on above: Expected: 02/15/2023 , Expires: 04/17/2023 Start: 02-15-2023 End: 04-17-2023 Comprehensive metabolic 2000 panel - Serum or Plasma COMP METABOLIC PANEL Lab Routine Essential hypertension, benign Dyslipidemia Expected: 02/15/2023, Expires: 04/17/2023 [facility] Work Phone: Comment on above: Expected: 02/15/2023 , Expires: 04/17/2023 Start: 02-15-2023 End: 04-17-2023 Hemoglobin A1c in Blood HGB A1C Lab Routine Hyperglycemia Expected: 02/15/2023, Expires: 04/17/2023 [facility] Work Phone: Comment on above: Expected: 02/15/2023 , Expires: 04/17/2023 Start: 02-15-2023 End: 04-17-2023 Lipid 1996 panel - Serum or Plasma LIPID PANEL BASIC Lab Routine Essential hypertension, benign Expected: 02/15/2023, Expires: 04/17/2023 [facility] Work Phone: Comment on above: Expected: 02/15/2023 , Expires: 04/17/2023 Start: 02-15-2023 End: 04-17-2023 Thyrotropin [Units/volume] in Serum or Plasma TSH BLD Lab Routine Hypothyroidism, acquired Expected: 02/15/2023, Expires: 04/17/2023 [facility] Work Phone: Comment on above: Expected: 02/15/2023 , Expires: 04/17/2023 Start: 02-15-2023 End: 04-17-2023 Thyroxine (T4) free [Mass/volume] in Serum or Plasma T4 FREE/FREE THYROX Lab Routine Hypothyroidism, acquired Expected: 02/15/2023, Expires: 04/17/2023 [facility] Work Phone: Comment on above: Expected: 02/15/2023 , Expires: 04/17/2023 Start: 01-21-2023 Urine microalbumin profile [facility] Comment on above: Postponed from 08/17 (Declined at this time) Start: 12-31-2022 Shingrix Vaccine (2 of 2) Cohn grix Vaccine (2 of 2) [facility] Start: 12-16-2022 Covid-19 Vaccine (2022- season) Covid-19 Vaccine (2022- season) [facility] Start: 12-16-2022 Influenza vaccination [facility] Start: 08-15-2022 End: 10-15-2022 CBC W Auto Differential panel - Blood [facility] Work Phone: Comment on above: Expected: 08/15/2022 , Expires: 10/15/2022 Start: 08-15-2022 End: 10-15-2022 Cobalamin (Vitamin B12) [Mass/volume] in Serum or Plasma [facility] Work Phone: Comment on above: Expected: 08/15/2022 , Expires: 10/15/2022 Start: 08-15-2022 End: 10-15-2022 Comprehensive metabolic 2000 panel - Serum or Plasma [facility] Work Phone: Comment on above: Expected: 08/15/2022 , Expires: 10/15/2022 Start: 08-15-2022 End: 10-15-2022 Thyrotropin [Units/volume] in Serum or Plasma [facility] Work Phone: Comment on above: Expected: 08/15/2022 , Expires: 10/15/2022 Start: 08-15-2022 End: 10-15-2022 Thyroxine (T4) free [Mass/volume] in Serum or Plasma [facility] Work Phone: Comment on above: Expected: 08/15/2022 , Expires: 10/15/2022 Start: 06-14-2022 End: 08-14-2022 25-hydroxyvitamin D3 [Mass/volume] in Serum or Plasma VITAMIN D 25 HYDROXY Lab Routine Vitamin D deficiency Fatigue, unspecified type Expected: 06/14/2022, Expires: 08/14/2022 [facility] Work Phone: Comment on above: Expected: 06/14/2022 , Expires: 08/14/2022 Start: 06-14-2022 End: 08-14-2022 CBC panel - Blood by Automated count CBC Lab Routine Dyslipidemia Expected: 06/14/2022, Expires: 08/14/2022 [facility] Work Phone: Comment on above: Expected: 06/14/2022 , Expires: 08/14/2022 Start: 06-14-2022 End: 08-14-2022 Cobalamin (Vitamin B12) [Mass/volume] in Serum or Plasma VITAMIN B12 BLOOD Lab Routine Fatigue, unspecified type Expected: 06/14/2022, Expires: 08/14/2022 [facility] Work Phone: Comment on above: Expected: 06/14/2022 , Expires: 08/14/2022 Start: 06-14-2022 End: 08-14-2022 Comprehensive metabolic 2000 panel - Serum or Plasma COMP METABOLIC PANEL Lab Routine Dyslipidemia Expected: 06/14/2022, Expires: 08/14/2022 [facility] Work Phone: Comment on above: Expected: 06/14/2022 , Expires: 08/14/2022 Start: 06-14-2022 End: 08-14-2022 Lipid 1996 panel - Serum or Plasma LIPID PANEL BASIC Lab Routine Dyslipidemia Expected: 06/14/2022, Expires: 08/14/2022 [facility] Work Phone: Comment on above: Expected: 06/14/2022 , Expires: 08/14/2022 Start: 06-14-2022 End: 08-14-2022 Thyrotropin [Units/volume] in Serum or Plasma TSH BLD Lab Routine Hypothyroidism, acquired Expected: 06/14/2022, Expires: 08/14/2022 [facility] Work Phone: Comment on above: Expected: 06/14/2022 , Expires: 08/14/2022 Start: 06-14-2022 End: 08-14-2022 Thyroxine (T4) free [Mass/volume] in Serum or Plasma T4 FREE/FREE THYROX Lab Routine Hypothyroidism, acquired Expected: 06/14/2022, Expires: 08/14/2022 [facility] Work Phone: Comment on above: Expected: 06/14/2022 , Expires: 08/14/2022 Start: 06-14-2022 End: 08-14-2022 Triiodothyronine (T3) Free [Mass/volume] in Serum or Plasma T3 FREE BLD Lab Routine Hypothyroidism, acquired Expected: 06/14/2022, Expires: 08/14/2022 [facility] Work Phone: Comment on above: Expected: 06/14/2022 , Expires: 08/14/2022 Start: 04-17-2022 ADVANCE DIRECTIVE DISCUSSION ADVANCE DIRECTIVE DISCUSSION [facility] Start: 03-23-2022 FECAL OCCULT BLOOD FECAL OCCULT BLOO D [facility] Start: 01-27-2022 End: 03-29-2022 Comprehensive metabolic 2000 panel - Serum or Plasma COMP METABOLIC PANEL Lab Routine Serum potassium elevated Expected: 01/27/2022, Expires: 03/29/2022 [facility] Work Phone: Comment on above: Expected: 01/27/2022 , Expires: 03/29/2022 Start: 01-03-2022 COVID-19 VACCINE (6 - Booster for Moderna series) COVID-19 VACCINE (6 - Booster for Moderna series) [facility] Start: 01-03-2022 COVID-19 VACCINE (6 - Moderna series) COVID-19 VACCINE (6 - Moderna series) [facility] Start: 12-16-2021 Influenza vaccination INFLUENZA (#1) [facility] Start: 10-21-2021 End: 12-21-2021 25-hydroxyvitamin D3 [Mass/volume] in Serum or Plasma [facility] Work Phone: Comment on above: Expected: 10/21/2021 , Expires: 12/21/2021 Start: 10-21-2021 End: 12-21-2021 CBC panel - Blood by Automated count [facility] Work Phone: Comment on above: Expected: 10/21/2021 , Expires: 12/21/2021 Start: 10-21-2021 End: 12-21-2021 Cobalamin (Vitamin B12) [Mass/volume] in Serum or Plasma [facility] Work Phone: Comment on above: Expected: 10/21/2021 , Expires: 12/21/2021 Start: 10-21-2021 End: 12-21-2021 Comprehensive metabolic 2000 panel - Serum or Plasma [facility] Work Phone: Comment on above: Expected: 10/21/2021 , Expires: 12/21/2021 Start: 10-21-2021 End: 12-21-2021 Thyrotropin [Units/volume] in Serum or Plasma [facility] Work Phone: Comment on above: Expected: 10/21/2021 , Expires: 12/21/2021 Start: 10-21-2021 End: 12-21-2021 Thyroxine (T4) free [Mass/volume] in Serum or Plasma [facility] Work Phone: Comment on above: Expected: 10/21/2021 , Expires: 12/21/2021 Start: 10-21-2021 End: 12-21-2021 Triiodothyronine (T3) [Mass/volume] in Serum or Plasma [facility] Work Phone: Comment on above: Expected: 10/21/2021 , Expires: 12/21/2021 Start: 09-24-2021 End: 11-24-2021 CREATININE BLD CREATININE BLD Lab Routine Transient cerebral ischemia, unspecified type Generalized weakness Aphasia Blurred vision Expected: 09/24/2021, Expires: 11/24/2021 [facility] Work Phone: Comment on above: Expected: 09/24/2021 , Expires: 11/24/2021 Start: 06-23-2021 COVID-19 VACCINE (5 - Booster for Moderna series) COVID-19 VACCINE (5 - Booster for Moderna series) [facility] Start: 04-17-2021 ADVANCE DIRECTIVE DISCUSSION ADVANCE DIRECTIVE DISCUSSION [facility] Start: 08-18-2015 RSV Vaccine (1 - 1-d ose 75+ series) RSV Vaccine (1 - 1-dose 75+ series) [facility] Start: 2000 RSV Vaccine (1 - 1-d ose 60+ series) RSV Vaccine (1 - 1-dose 60+ series) [facility] Start: 1990 SHINGRIX VACCINE (1 of 2) COHN GRIX VACCINE (1 of 2) [facility] Start: 08-18-1959 SHINGRIX VACCINE (1 of 2) COHN GRIX VACCINE (1 of 2) [facility] Start: 08-18-1959 Urine microalbumin profile [facility] Basic metabolic 2008 panel with ionized calcium - Serum or Plasma [facility] Cardioversion [facility] End: 10-24-2022 Ct head/brain w/o contrast material CT BRAIN WO IVCON Radiology STAT Transient cerebral ischemia, unspecified type Generalized weakness Aphasia Blurred vision 1 Occurrences starting 09/24/2021 until 10/24/2022 [facility] Work Phone: Comment on above: 1 Occurrences starti ng 09/24/2021 until 10/24/2022 End: 01-02-2025 DBT Breast - bilateral screening AMBROSE SCREENING W ORACIO Radiology Routine Personal history of breast cancer Encounter for screening mammogram for high-risk patient 1 Occurrences starting 12/04/2023 until 01/02/2025 [facility] Work Phone: Comment on above: 1 Occurrences starti ng 12/04/2023 until 01/02/2025 DBT Breast - bilater al screening AMBROSE SCREENING W ORACIO Radiology Routine Personal history of breast cancer Encounter for screening mammogram for high-risk patient 01/08/2024 1:08 PM EDT [facility] Work Phone: End: 10-24-2022 Duplex scan extracranial art compl bi study US CAROTID BILAT Radiology Routine Transient cerebral ischemia, unspecified type Generalized weakness Aphasia Blurred vision 1 Occurrences starting 09/24/2021 until 10/24/2022 [facility] Work Phone: Comment on above: 1 Occurrences starti ng 09/24/2021 until 10/24/2022 End: 01-13-2023 Dxa bone density study 1/> sites axial skel DXA-AXIAL SKELETON Radiology Routine Osteopenia, senile Disorder of bone and articular cartilage Disorder of bone density and structure, unspecified Other specified disorders of bone density and structure, multiple sites 1 Occurrences starting 12/14/2021 until 01/13/2023 [facility] Work Phone: Comment on above: 1 Occurrences starti ng 12/14/2021 until 01/13/2023 End: 09-24-2022 ECG COMPLETE ECG COMPLETE ECG Routine Transient cerebral ischemia, unspecified type Generalized weakness Aphasia Blurred vision 1 Occurrences starting 09/24/2021 until 09/24/2022 [facility] Work Phone: Comment on above: 1 Occurrences starti ng 09/24/2021 until 09/24/2022 ECG COMPLETE ECG COMPLETE ECG Routine Other chest pain 08/28/2024 12:47 PM EDT [facility] End: 08-28-2025 Echocardiography ECHO Cardiology Routine Palpitations 1 Occurrences starting 08/28/2024 until 08/28/2025 [facility] Comment on above: 1 Occurrences starti ng 08/28/2024 until 08/28/2025 Evaluation of diagno stic study results [facility] Hemoglobin.gastroint estina l.lower [Presence] in Stool by Immunoassay IMMUNOCHEMICAL FECAL OCCULT BLOOD TEST Lab Routine Melena Ordered: 08/28/2024 [facility] Comment on above: Ordered: 08/28/2024 End: 01-01-2023 AMBROSE SCREENING W ORACIO AMBROSE SCREENING W ORACIO Radiology Routine 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 in female, estrogen receptor positive (HCC) Encounter for screening mammogram for high-risk patient 1 Occurrences starting 12/02/2021 until 01/01/2023 [facility] Work Phone: Comment on above: 1 Occurrences starti ng 12/02/2021 until 01/01/2023 End: 01-01-2024 AMBROSE SCREENING W ORACIO AMBROSE SCREENING W ORACIO Radiology Routine 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 in female, estrogen receptor positive (HCC) Encounter for screening mammogram for high-risk patient 1 Occurrences starting 12/02/2022 until 01/01/2024 [facility] Work Phone: Comment on above: 1 Occurrences starti ng 12/02/2022 until 01/01/2024 NM Heart Views W str ess and W radionuclide IV [facility] SARS-CoV-2 (COVID-19 ) RNA [Presence] in Respiratory specimen by BLADE with probe detection COVID NAAT, UPPER RESPIRATORY, ROUTINE Microbiology Routine Viral URI with cough Exposure to COVID-19 virus 06/29/2023 1:10 PM EDT [facility] Work Phone: End: 08-28-2025 US Carotid arteries - bilateral US CAROTID ARTERIES [facility] Lab Routine Carotid atherosclerosis, bilateral 1 Occurrences starting 08/28/2024 until 08/28/2025 [facility] Work Phone: Comment on above: 1 Occurrences starti ng 08/28/2024 until 08/28/2025 End: 09-27-2025 XR Knee - bilateral 4 Views XR KNEE GENERAL 4V AP BOTH/PA BOTH/LAT/MERC BILATERAL Radiology Routine Chronic pain of both knees History of total knee arthroplasty, bilateral 1 Occurrences starting 08/28/2024 until 09/27/2025 [facility] Comment on above: 1 Occurrences starti ng 08/28/2024 until 09/27/2025 [facility] Immunizations Immunization Date Immunization Notes Care Provider Jamari maravilla 02-26-2024 COVID-19 vaccine, ag e 12+ yr (PFIZER-BIONTECH COMIRNATY) Vini Michelrison DO Work Phone: [facility] 02-26-2024 influenza, high dose seasonal, preservative-free Vini Michelrison DO Work Phone: [facility] 02-26-2024 influenza virus vacc ine, unspecified formulation Vini Michelrison DO Work Phone: [facility] 02-21-2023 influenza (HD-IIV4) vaccine, age 65+ yr, high dose, quadrivalent, PF (FLUZONE HIGH-DOSE) Radha Jurado [employer]DISTRICT MANAGER Work Phone: [facility] 02-21-2023 pneumococcal (PCV20) vaccine, 20 valent (PREVNAR 20) Radha Jurado [employer].DISTRICT MANAGER Work Phone: [facility] 02-21-2023 influenza virus vacc ine, unspecified formulation Vini Michelrison DO Work Phone: [facility] 02-13-2023 COVID-19 vaccine, ag e 12+ yr, 2022- season ([employer]) Susanna Laguna [employer].DISTRICT MANAGER Work Phone: [facility] Work Phone: 01-21-2022 influenza, high-dose , quadrivalent vaccine (FLUZONE HIGH DOSE QUADRIVALENT) Ayesha Jefferson [employer].DISTRICT MANAGER Work Phone: [facility] 01-21-2022 influenza virus vacc ine, unspecified formulation Owen Lopez RN Work Phone: [facility] 08-11-2020 COVID-19 vaccine, fu ll dose (MODERNA) Radha Jurado [employer]DISTRICT MANAGER Work Phone: [facility] 07-14-2020 COVID-19 vaccine, fu ll dose (MODERNA) Radha Jurado [employer]DISTRICT MANAGER Work Phone: [facility] 07-13-2020 Covid (Moderna) [facility] 06-15-2020 Covid (Moderna) [facility] 01-08-2020 influenza, high dose seasonal, preservative-free Radha Rhiannon [employer]DISTRICT MANAGER Work Phone: [facility] 02-01-2019 influenza, high dose seasonal, preservative-free Radha Rhiannon [employer]DISTRICT MANAGER Work Phone: [facility] 01-02-2018 influenza, high dose seasonal, preservative-free Radha Rhiannon [employer]DISTRICT MANAGER Work Phone: [facility] Work Phone: 01-16-2017 Influenza virus vaccine [facility] 01-16-2017 influenza, seasonal, injectable, preservative free Radha Rhiannon [employer]DISTRICT MANAGER Work Phone: [facility] 12-31-2016 influenza, high dose seasonal, preservative-free Radha Rhiannon [employer]DISTRICT MANAGER Work Phone: [facility] 08-24-2016 pneumococcal polysaccharide vaccine, 23 valent Radha Rhiannon [employer].DISTRICT MANAGER Work Phone: [facility] Work Phone: 12-30-2015 influenza, high dose seasonal, preservative-free Radha Rhiannon [employer].DISTRICT MANAGER Work Phone: [facility] Work Phone: 07-31-2015 pneumococcal conjuga te vaccine, 13 valent Radha Rhiannon [employer].DISTRICT MANAGER Work Phone: [facility] 02-18-2015 influenza, high dose seasonal, preservative-free Radha Rhiannon [employer]DISTRICT MANAGER Work Phone: [facility] 01-20-2014 influenza, high dose seasonal, preservative-free Radha Rhiannon [employer]DISTRICT MANAGER Work Phone: [facility] 01-29-2013 influenza virus vacc ine, unspecified formulation Radha Rhiannon [employer]DISTRICT MANAGER Work Phone: [facility] 01-25-2012 influenza virus vacc ine, unspecified formulation Radha Rhiannon [employer]DISTRICT MANAGER Work Phone: [facility] Work Phone: 01-10-2009 influenza virus vacc ine, unspecified formulation Radha Rhiannon [employer]DISTRICT MANAGER Work Phone: [facility] 02-19-2008 influenza virus vacc ine, whole virus Radha Rhiannon [employer].DISTRICT MANAGER Work Phone: [facility] 02-19-2008 pneumococcal conjuga te vaccine, 7 valent Radha Rhiannon [employer]DISTRICT MANAGER Work Phone: [facility] 02-19-2007 influenza virus vacc ine, unspecified formulation Radha Rhiannon [employer] Work Phone: [facility] Work Phone: 02-20-2006 influenza virus vacc ine, unspecified formulation Radha Rhiannon [employer]DISTRICT MANAGER Work Phone: [facility] 02-15-2005 influenza virus vacc ine, unspecified formulation Radha Rhiannon [employer] Work Phone: [facility] Work Phone: Payers Date Payer Category Payer Unknown [id number] 2024 Self-pay [id number] 2021 Unknown [employer] [id number] 2021-Present [phone] [address] [place] [address] Indemnity [id number] 2021 Unknown [employer] [id number] 2021-Present [phone] [address] [address] [place] [address] Indemnity [id number] 2010 Unknown [id number] 2005 Medicare MEDICARE MEDICAR E A AND B [id number] 2005-Present [phone] [address] [address] [place] [address] Medicare [id number] 2005 Medicare [id number] 2005 Medicare [id number] Unknown [id number] Unknown [id number] Unknown [id number] Unknown [id number] Unknown [id number] Unknown [id number] Unknown [id number] Unknown [id number] Unknown [id number] Unknown [id number] Social History Date Type Detail Facility Start: 03-03-2011 End: 10-15-2024 Tobacco smoking status NMIS Never smoked tobacco [facility] Start: 09-24-2021 End: 01-03-2022 Alcohol intake Current drinker of alcohol (finding) [facility] Start: 1940 Sex Assigned At Not on file [facility] Start: 09-14-2021 End: 01-18-2022 Exposure to SARS-CoV-2 (event) Not sure [facility] Start: 06-10-2019 Tobacco smoking stat us NMIS Unknown if ever smoked [facility] Work Phone: Start: 11-29-2017 Non-smoker [facility] Start: 1940 Sex Assigned At Female [facility] Start: 03-03-2011 End: 01-03-2022 Tobacco use and exposure Smokeless tobacco non-user [facility] Start: 01-18-2022 End: 08-28-2024 Alcohol intake Ex-drinker (finding) [facility] Start: 01-11-2022 End: 01-21-2022 Exposure to SARS-CoV-2 (event) Yes [facility] Start: 08-15-2022 End: 12-02-2022 History of Social function [facility] Work Phone: Start: 08-15-2022 End: 12-02-2022 Tobacco use panel [facility] Work Phone: (I/We) worried jodi er (my/our) food would run out before (I/we) got money to buy more. Never true [facility] Work Phone: Start: 03-18-2012 In the past 12 month s, has lack of transportation kept you from medical appointments or from getting medications? No [facility] Work Phone: How often to you hav e a drink containing alcohol? 2-4 times a month [facility] How many standard dr inks containing alcohol do you have on a typical day? 1 or 2 [facility] How often do you hav e 6 or more drinks on 1 occasion? Never [facility] Medical Equipment Procedure Code Equipment Code Equipment [...] lose 10-15 pounds this year.Stay away from Adhysteria, candies, and bread and will increase activity outside when the weather warms up Comment on above: Formatting of this n ote might be different from the original. To keep BP under 140/80 Functional Status Date Assessment Result Facility 08-28-2024 Total score [AUDIT-C] 2 08/29/19 11:50 AM EDT Randy Aguilera LPN [facility] 04-04-2014 Are you deaf, or do you have serious difficulty hearing No 04/04/2014 2:11 PM Sariah Dennis RN No [facility] 04-04-2014 Are you blind, or do you have serious difficulty seeing, even when wearing glasses No 04/04/2014 2:11 PM Sariah Dennis RN No [facility] 04-04-2014 Do you have serious difficulty walking or climbing stairs No 04/04/2014 2:11 PM Sariah Dennis RN No [facility] 04-04-2014 Do you have difficul ty dressing or bathing No 04/04/2014 2:11 PM Sariah Dennis RN No [facility] 04-04-2014 Because of a physica l, mental, or emotional condition, do you have difficulty doing errands alone such as visiting a physician's office or shopping No 04/04/2014 2:11 PM Sariah Dennis RN No [facility] Mental Status Date Assessment Result Facility 04-04-2014 Because of a physica l, mental, or emotional condition, do you have serious difficulty concentrating, remembering, or making decisions No 04/04/2014 2:11 PM Sariah Dennis RN No [facility] Clinical Notes 09-24-2021 to 01-20-2025 Liane Mosher MA - 12/17/2024 3:08 PM EDTTelephone Encounter - María Elena Brown - 11/05/2024 12:00 PM EDTTelephone Encounter - María Elena Brown - 11/05/2024 12:00 PM EDT Note Date & Type Note Facility 01-20-2025 Note HNO ID: [id number] Author: ELISSA NEGRO APRN.DISTRICT MANAGER Service: ? Author Type: Nurse Practitioner Type: [...] volume. 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 APRN.[facility] 01-10-2025 Note HNO ID: [id number] Author: TAYLER CAMPOS RT(R) Service: ? Author [...] PATIENT PRESENTS WITH AN IMPLANTABLE OR ATTACHED COLD HEADER: No RADIOLOGY DEPARTMENT: Mammography PERIPHERAL IV DATA: Not applicable SIGNED BY: RT Aleida(R) January 10, 2025 2:33 PM [facility] 12-17-2024 Note HNO ID: [id number] Author: LIANE MOSHER MA Service: ? Author Type: Admitting Representative Type: Progress Notes Filed: 12/17/2024 15:08 Note Text: POPULATION HEALTH NAVIGATION OUTREACH Action/FYI HCC gap closure added to upcoming appointment notes. No other Hm due. Reason for Outreach Care Gap/HCC or Scheduling Wellness Visits Care Gaps due: N/A Patient Contacted: Unable or unnecessary to reach patient: HCC related Updated appointment notes Navigation Signature: Liane Mosher MA December 17, 2024 3:08 PM [facility] 12-17-2024 History of Presen t illness Narrative [...] 2024 3:08 PM documented in this encounter [facility] 12-17-2024 Note Patient Outreach (NE TNAV) HARJIT BRADSHAW ([id number]) 1940 F Date Time Provider Department 12/17/24 [...] Encounter Status:Closed by LIANE MOSHER on 12/17/24 [facility] 11-05-2024 Telephone encounter Note Prescription Refill Information [...] Elena Brown November 05, 2024 12:01 PM [facility] 11-05-2024 Miscellaneous Notes Prescription Refill Information The [...] 2024 12:01 PM documented in this encounter [facility] 10-15-2024 Evaluation note Diagnosis Onset Date Resolution [...] 8:28am Hypertension chronic December 12, 2024 8:28am [facility] Work Phone: 1(589) 222-145007-01-2025 Evaluation note* Diagnosis Onset Date Resolution Status [...] atrial fibrillation acute January 16, 2025 10:32am [facility] Work Phone: 1(339) 323-493007-01-2025 Evaluation note* Diagnosis Onset Date Resolution Status [...] 10:32am Hypertension chronic January 16, 2025 10:32am [facility] Work Phone: 1(580) 647-396806-20-2025 Telephone encounter Note* Telephone Encounter - Jodie Dupont LPN - 10/04/2024 12:45 PM EDT Tried to call pt muliple times phone rings it appears someone picks up then hangs up . Not sure what is happening. Will try again in a bit. [facility]06-20-2025 Miscellaneous Notes* Telephone Encounter - Jodie Dupont [...] to get her to this appt with Insole Department Worker? Vini Sparks DO * Telephone Encounter - [...] 8:37 AM EDT Has she seen the Insole Department Worker yet? This is needed Vini Sparks DO * Telephone Encounter - Yaa Jordan RN - 09/26/2024 3:27 PM EDT Patient states she was ordered Eliquis but it is too costly for her to continue. Asking for provider to order an alternative medication that will cost less. Please call patient with reply. Yaa Jordan RN documented in this encounterHolzer Health System06-13-2025 Telephone encounter Note * Telephone Encounter - Randy Aguilera LPN - 09/27/2024 10:18 AM EDT Message left to return call. [facility]06-13-2025 Telephone encounter Note* Telephone Encounter - Vini Sparks DO - 09/27/2024 9:50 AM EDT Does she have enough Eliquis to get her to this appt with Insole Department Worker? Vini Sparks DO [facility]06-13-2025 Telephone encounter Note* Telephone Encounter - Dianna [...] the home phone number. Dianna Monroe RN [facility]06-13-2025 Telephone encounter Note* Telephone Encounter - Yaa Jordan RN - 09/27/2024 9:06 AM EDT Attempted to reach patient using two phone numbers, no answer. Unable to leave messages. Please try contacting patient again. Yaa Jordan RN [facility]06-13-2025 Telephone encounter Note* Telephone Encounter - Vini Sparks DO - 09/27/2024 8:37 AM EDT Has she seen the Insole Department Worker yet? This is needed Vini Sparks DO [facility]06-12-2025 Telephone encounter Note* Telephone Encounter - Yaa Jordan RN - 09/26/2024 3:27 PM EDT Patient states she was ordered Eliquis but it is too costly for her to continue. Asking for provider to order an alternative medication that will cost less. Please call patient with reply. Yaa Jordan RN [facility]06-04-2025 Telephone encounter Note* Telephone Encounter - Dianna [...] Monroe RN September 18, 2024 9:13 AM [facility]06-04-2025 Miscellaneous Notes* Telephone Encounter - Dianna Monroe [...] 18, 2024 9:13 AM documented in this encounterHolzer Health System06-03-2025 Telephone encounter Note * Telephone Encounter - Randy Aguilera LPN - 09/17/2024 1:08 PM EDT Pt. informed letter sent. [facility]06-03-2025 Miscellaneous Notes* Telephone Encounter - Randy Geiger [...] years Vini Sparks DO documented in this encounterHolzer Health System06-03-2025 Telephone encounter Note * Telephone Encounter - Vini Sparks DO - 09/17/2024 7:39 AM EDT Please inform patient that her ECHO shows mild tricuspid valve and mitral valve regurgitation only.Otherwise her ECHO is normal. Continue good exercise and BLOOD PRESSURE control Recommend repeat echo in 2-3 years Vini Sparks DO [facility]06-02-2025 Telephone encounter Note* Telephone Encounter - Neha Stuart MA - 09/16/2024 10:15 AM EDT Pt informed, verbalized understanding Neha Stuart MA [facility]06-02-2025 Miscellaneous Notes* Telephone Encounter - Neha Stuart MA - 09/16/2024 10:15 AM EDT Pt informed, verbalized understanding Neha Stuart MA * Telephone Encounter - Neha Stuart MA - 09/16/2024 10:14 AM EDT ----- Message from Ayesha Tran APRN.DISTRICT MANAGER sent at 09/16/2024 7:42 AM EDT ----- Please let patient know that potassium level is back to normal. No concerns. Take care, Ayesha Tran APRN.DISTRICT MANAGER documented in this encounterCleveland [id number] Telephone encounter Note * Telephone Encounter - Neha Stuart MA - 09/16/2024 10:14 AM EDT ----- Message from Ayesha Tran APRN.DISTRICT MANAGER sent at 09/16/2024 7:42 AM EDT ----- Please let patient know that potassium level is back to normal. No concerns. Take care, Ayesha Tran APRN.DISTRICT MANAGER [facility]05-30-2025 Telephone encounter Note* Telephone Encounter - Purnima Galvez LPN - 09/13/2024 4:26 PM EDT Patient returned call and went over results, notes from Ayesha Tran TOP LIFT COMPRESSOR with understanding. Patient may not get lab done until Monday that is when she is coming into [place] again, depends ifshe can do it Monday. [facility]05-30-2025 Miscellaneous Notes* Telephone Encounter - Purnima Galvez LPN - 09/13/2024 4:26 PM EDT Patient returned call and went over results, notes from Ayesha Tran TOP LIFT COMPRESSOR with understanding. Patient may not get lab done until Monday that is when she is coming into [place] again, depends ifshe can do it Monday. [...] you, Ayesha Tran APRN.MARYANA documented in this encounterHolzer Health System05-30-2025 Telephone encounter Note * Telephone Encounter - Ailin Alanis - 09/13/2024 3:44 PM EDT Order faxed to [facility] with the request that they reach out to the patient to schedule. [facility]05-30-2025 Miscellaneous Notes* Telephone Encounter - Ailin Alanis - 09/13/2024 3:44 PM EDT Order faxed to [facility] with the request that they reach out to the patient to schedule. * Telephone Encounter - Ayesha Tran APRN.MARYANA - 09/12/2024 1:15 PM EDT Ok with going with [facility]. Please assistance in scheduling/ provide her the number. Thank you, Ayesha Tran APRN.DISTRICT MANAGER * Telephone Encounter - Ailin Alanis - 09/12/2024 8:51 AM EDT Spoke with patient and she does not want to leave [place] for her cardiology appointment. First available at [facility] isn't until March 2025. Please advise if provider is ok with patient going to [facility]. * Telephone Encounter - Neha [...] wit pt states has not yet seen tool planer set up operator. * Telephone Encounter - Vini Sparks DO - 09/07/2024 7:28 AM EDT Please call and clarify if she has seen the Insole Department Worker yet? She was just recently diagnosed with [...] something else that is cheaper? Patient uses [facility] for her pharmacy. Please advise documented in this encounterHolzer Health System05-29-2025 Telephone encounter Note * Telephone Encounter - Jodie Dupont LPN - 09/12/2024 3:44 PM EDT Attempted to call pt rings. Then hear a clicking like someone picks up but no one there. [facility]05-29-2025 Telephone encounter Note* Telephone Encounter - Ayesha [...] labs look great. Thank you, Ayesha Tran APRN.DISTRICT MANAGER [facility]05-29-2025 Telephone encounter Note* Telephone Encounter - Ayesha Tran APRN.DISTRICT MANAGER - 09/12/2024 1:15 PM EDT Ok with going with [facility]. Please assistance in scheduling/ provide her the number. Thank you, Ayesha Tran APRN.DISTRICT MANAGER [facility]05-29-2025 Telephone encounter Note* Telephone Encounter - Ailin Alanis - 09/12/2024 8:51 AM EDT Spoke with patient and she does not want to leave [place] for her cardiology appointment. First available at [facility] isn't until March 2025. Please advise if provider is ok with patient going to [facility]. [facility]05-27-2025 Telephone encounter Note* Telephone Encounter - Neha Stuart MA - 09/10/2024 10:48 AM EDT Pt needs to see cardiology [facility]! Please schedule Neha Stuart MA [facility]05-24-2025 Telephone encounter Note* Telephone Encounter - Vini Sparks DO - 09/07/2024 11:17 AM EDT I need her to get an appt [facility], I don;t know if she is actually a candidate, until getting their opinion, to change to Warfarin instead of Eliquis Vini Sparks DO [facility]05-24-2025 Telephone encounter Note* Telephone Encounter - Jodie Dupont LPN - 09/07/2024 10:05 AM EDT Spoke wit pt states has not yet seen tool planer set up operator. [facility]05-24-2025 Telephone encounter Note* Telephone Encounter - Vini Sparks DO - 09/07/2024 7:28 AM EDT Please call and clarify if she has seen the Insole Department Worker yet? She was just recently diagnosed with atrial fibrillation on 08/28 in office Vini Sparks DO [facility]05-21-2025 Telephone encounter Note* Telephone Encounter - Purnima [...] something else that is cheaper? Patient uses [facility] for her pharmacy. Please advise [facility]05-14-2025 Telephone encounter Note* Telephone Encounter - Randy Aguilera LPN - 08/28/2024 1:59 PM EDT Medical records faxed to Dr. Can [facility]05-14-2025 Miscellaneous Notes* Telephone Encounter - Randy Geiger LPN - 08/28/2024 1:59 PM EDT Medical records faxed to Dr. Can * Telephone Encounter - Vini Sparks DO - 08/28/2024 1:15 PM EDT Please fax Insole Department Worker referral to [facility] per her request Also fax current ECG and office notes Vini Sparks DO documented in this encounterHolzer Health System05-14-2025 Telephone encounter Note * Telephone Encounter - Vini Sparks DO - 08/28/2024 1:15 PM EDT Please fax Insole Department Worker referral to [facility] per her request Also fax current ECG and office notes Vini Sparks DO [facility]05-14-2025 NoteHNO ID: [id number] Author: VINI SPARKS DO Service: ? Author [...] SHOULDER Left 01/09/2019 Dr. David Nieto @ [facility]; L reverse total shoulder replacement; L distal [...] LIPID MICROSPHERES 1.1 M (more content not included)...[facility]05-14-2025 NoteHNO ID: [id number] Author: VINI SPARKS, DO Service: ? Author [...] weight loss. BMI 30.75 kg/(m2) Vini Sparks [facility]05-14-2025 History of Present illness Narrative* Bridger Vini [...] SHOULDER Left 01/09/2019 Dr. David Nieto @ [facility]; L reverse total shoulder replacement; L distal [...] Check ECHO and carotid US F/u with Insole Department Worker for opinion if any further testing is needed 12. Atrial fibrillation, unspecified type (HCC) - ICD9: 427.31, ICD10: I48.91 See above Continue metoprolol Start on eliquis Check ECHO and carotid US F/u with Insole Department Worker for opinion if any further testing is needed - CONSULT TO CARDIOLOGY - APIXABAN 2.5 MG TABLET Vini Sparks DO I spent 45 minutes in the visit, with more than 50% of the total zfkj-fv-pocg time of the visit in counseling / coordination of care. Return if no improvement. Follow up with Vini Sparks DO. To ER if develops chest pain, shortness of breath. Discussed risks, benefits, alternatives, and potential side effects of medications. Patient/Guardian expressed understanding and agreed with the plan. See patient instructions. Vini Sparks DO [address] [place] [address] * Vini Sparks DO - 08/28/2024 12:40 [...] kg/(m^2) Vini Sparks DO documented in this encounterHolzer Health System03-27-2025 History of Present illness Narrative* Siva Knapp [...] SHOULDER Left 01/09/2019 Dr. David Nieto @ [facility]; L reverse total shoulder replacement; L distal [...] no details, 85 Coronary Artery Disease Father ID, 94 Cancer Sister 57 liver Cancer Brother [...] Moderate Siva Knapp MD documented in this encounterHolzer Health System03-27-2025 NoteHNO ID: [id number] Author: SIVA KNAPP MD Service: ? Author [...] SHOULDER Left 01/09/2019 Dr. David Nieto @ [facility]; L reverse total shoulder replacement; L distal [...] no details, 85 Coronary Artery Disease Father ID, 94 Cancer Sister 57 liver Cancer Brother [...] Discontinued Advance Directive Discussio (more content not included)...[facility]03-26-2025 Telephone encounter Note* Telephone Encounter - Vini Sparks DO - 07/10/2024 2:28 PM EDT See below Patient needs to be seen by DISTRICT MANAGER since I am not in tomorrow and don't have any option to see her Monday and am off next week Vini Sparks DO [facility]03-26-2025 Miscellaneous Notes* Telephone Encounter - Vini Sparks DO - 07/10/2024 2:28 PM EDT See below Patient needs to be seen by DISTRICT MANAGER since I am not in tomorrow and don't have any option to see her Monday and am off next week Vini Sparks DO * Telephone Encounter - Chikis Leone RN - 07/10/2024 12:34 PM EDT [facility] OUTREACH Provider Action/FYI: Advised patient to be seen within 24 hours due to anxiety symptoms. Patient would like to see Dr. Sparks. Lexx, you've reached [facility], my name is Chikis Leone RN, I'm a registered nurse, and we are on a recorded line. Patient identified by name and date of Spoke with patient Verify that the patient is a [facility] patient: Yes Are you having any [...] : N/A Protocols used: Anxiety and Panic [id number]-HN documented in this encounterHolzer Health System03-26-2025 NoteHNO ID: [id number] Author: DORITA TIJERINA MA Service: ? Author Type: Admitting Representative Type: Progress Notes Filed: 07/10/2024 13:27 Note [...] Patient scheduled/pended orders: Follow-up Appointment 07/11/2024 in [facility] with SIVA KNAPP - [facility] - Medicare Wellness 01/10/2025 in [facility] - 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 in female, estrogen receptor positive (HCC) [C50.112, Z17.0]; Encounter for screening mammogram for high-risk patient [Z12.31] , Comment: RIGHT 01/20/2025 in [facility] with ELISSA NEGRO - 1 YR OV/MAMM 01/10* Navigation Signature: Dorita Hopkins MA July 10, 2024 12:55 [facility]03-26-2025 History of Present illness Narrative* Dorita Tijerina [...] Patient scheduled/pended orders: Follow-up Appointment 07/11/2024 in [facility] with SIVA KNAPP - [facility] - Medicare Wellness 01/10/2025 in [facility] - 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 in female, estrogen receptor positive (HCC) [C50.112, Z17.0]; Encounter for screening mammogram for high-risk patient [Z12.31] , Comment: RIGHT 01/20/2025 in [facility] with ELISSA NEGRO - 1 YR OV/MAMM 01/10* Navigation Signature: Dorita Hopkins MA July 10, 2024 12:55 PM documented in this encounterHolzer Health System03-26-2025 Telephone encounter Note * Telephone Encounter - Chikis Leone RN - 07/10/2024 12:34 PM EDT [facility] OUTREACH Provider Action/FYI: Advised patient to be seen within 24 hours due to anxiety symptoms. Patient would like to see Dr. Sparks. Hello, you've reached [facility], my name is Chikis Leone RN, I'm a registered nurse, and we are on a recorded line. Patient identified by name and date of Spoke with patient Verify that the patient is a [facility] patient: Yes Are you having any [...] : N/A Protocols used: Anxiety and Panic [id number]-JP [facility]03-26-2025 NotePatient Outreach (NETNAV) HARJIT BRADSHAW ([id number]) 1940 F Date Time Provider Department 07/10/24 [...] Patient scheduled/pended orders: Follow-up Appointment 07/11/2024 in [facility] with SIVA KNAPP - Anxiety 08/28/2024 in [facility] with VINI SPARKS - Medicare Wellness 01/10/2025 in [facility] - 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 in female, estrogen receptor positive (HCC) [C50.112, Z17.0]; Encounter for screening mammogram for high-risk patient [Z12.31] , Comment: RIGHT 01/20/2025 in [facility] with ELISSA NEGRO - 1 YR OV/MAMM 01/10* Navigation Signature: Dorita LeivaLOULOU polanco July 10, 2024 12:55 PM Allergies As of Date: 07/10/2024 Noted Allergy Reaction MORPHINE 03/03/2014 1 - Mental Status Change 5 - Intolerance 8 - GI Upset Date Reviewed: 02/26/2024 Reviewed by: Randy Aguilera LPN - Fully Assessed Reason for Visit: Population Health Navigation Outreach [3910] Cmt: Healthy at Home - [facility] Prescriptions as of 07/10/2024 - sertraline [...] 08/15/2022 Encounter Status:Closed by DORITA TIJERINA on 07/10/24[facility]11-[facility]-2024 Telephone encounter Note* Telephone Encounter - Madison Sarah Kinney - 03/05/2024 4:49 PM EST Patient returned phone call. Please call her on her 's cell: [phone]. [facility]11-19-2024 Miscellaneous Notes* Telephone Encounter - Madison Sarah Kinney - 03/05/2024 4:49 PM EST Patient returned phone call. Please call her on her 's cell: [phone]. * Telephone Encounter - Randy Aguilera LPN [...] for 90 tablets with 1 refill. Called [facility] and spoke with pharmacist Camilla. Confirmed with [...] date is 07/09/23 and prescription number of [id number]. Pt states that sometimes she will empty [...] to speak with her daughter Lexy, Jesus, [id number] Owen and son Bravo. Nurse concerned about [...] Galvez LPN - 02/29/2024 9:14 AM EST [facility] pharmacy calling asking to clarify directions on Sertraline 100 mg rx please. Rx has2 sets of directions on the rx. Aware PCP is out of the office on and they will notify thepatient also. Please advise documented in this encounterHolzer Health System11-19-2024 Telephone encounter Note * Telephone Encounter - Randy Aguilera LPN - 03/05/2024 4:45 PM EST Tried to inform no answer or VM. [facility]11-19-2024 Telephone encounter Note* Telephone Encounter - Vini Sparks DO - 03/05/2024 4:22 PM EST The following approved medication requests have been transmitted electronically. Requested Prescriptions Signed Prescriptions Disp Refills sertraline (ZOLOFT) 100 mg tablet 135 tablet 1 Sig: Take 1.5 tablets daily at bedtime Authorizing Provider: VINI SPARKS DO [facility]11-19-2024 Telephone encounter Note* Telephone Encounter - Kiya [...] for 90 tablets with 1 refill. Called [facility] and spoke with pharmacist Camilla. Confirmed with [...] date is 07/09/23 and prescription number of [id number]. Pt states that sometimes she will empty [...] to speak with her daughter Lexy, Jesus, udnluxin-kc-ixy Owen and son Bravo. Nurse concerned about [...] she starts noticing more confusion. Verbalized understanding. [facility]11-18-2024 Telephone encounter Note* Telephone Encounter - Ava Roberts PA-C - 03/04/2024 10:45 AM EST Please confirm with patient her dose-it appears from last visit and refill that she is taking Zoloft 100 mg - 2 tabs at bedtime. [facility] Work Phone: [phone] NoteHNO ID: [id number] Author: OWEN LOPEZ RN Service: ? Author [...] Owen Lopez RN March 04, 2024 10:06 [facility]11-18-2024 History of Present illness Narrative* Owen [...] 04, 2024 10:06 AM documented in this encounterHolzer Health System11-18-2024 NotePatient Outreach ([facility]) HARJIT BRADSHAW ([id number]) 1940 F Date Time Provider Department 03/04/24 OWEN LOPEZ [facility] During your visit today, we recorded the following information about you: Owen Lopez, RN 03/04/2024 10:07 AM Signed [facility] Telephonic Outreach Provider Scooter/MISBAH HTN, depression, breast [...] 08/15/2022 Encounter Status:Closed by OWEN LOPEZ on 03/04/24[facility] 02-29-2024 Telephone encounter Note* Telephone Encounter - Purnima Galvez LPN - 02/29/2024 9:14 AM EST [facility] pharmacy calling asking to clarify directions on Sertraline 100 mg rx please. Rx has2 sets of directions on the rx. Aware PCP is out of the office on and they will notify thepatient also. Please advise [facility]11-13-2024 Telephone encounter Note* Telephone Encounter - Deana Ferreira MA - 02/28/2024 3:00 PM EST Called and spoke to [facility] in [place] they have both prescription on file and will get ready for picked edge sewing machine operator. Deana Ferreira MA [facility]11-13-2024 Miscellaneous Notes* Telephone Encounter - Deana Ferreira MA - 02/28/2024 3:00 PM EST Called and spoke to [facility] in [place] they have both prescription on file and will get ready for picked edge sewing machine operator. Deana Ferreira MA * Telephone Encounter - Tiarra Adler - 02/28/2024 2:47 PM EST [facility] is calling Vini Sparks DO today. Patient was at [facility] today and they have no record of receiving two of the medications sent on Monday sertraline (ZOLOFT) 100 mg tablet amLODIPine (NORVASC) 5 mg tablet Please contact pharmacy or send new scripts. documented in this encounterHolzer Health System11-13-2024 Telephone encounter Note * Telephone Encounter - Tiarra Adler - 02/28/2024 2:47 PM EST [facility] is calling Vini Sparks DO today. Patient was at [facility] today and they have no record of receiving two of the medications sent on Monday sertraline (ZOLOFT) 100 mg tablet amLODIPine (NORVASC) 5 mg tablet Please contact pharmacy or send new scripts. [facility]11-11-2024 NoteHNO ID: [id number] Author: VINI SPARKS DO Service: ? Author [...] SHOULDER Left 01/09/2019 Dr. David Nieto @ [facility]; L reverse total shoulder replacement; L distal [...] diet and regular exercise (more content not included)...[facility]11-11-2024 History of Present illness Narrative* Vini Sparks [...] SHOULDER Left 01/09/2019 Dr. David Nieto @ [facility]; L reverse total shoulder replacement; L distal [...] vaccine - ICD9: V04.89, ICD10: Z23 - PFIZER-BIONTMagento COVID-19 VACCINE AGE 12+ YR (COMIRNATY) 7. [...] See patient instructions. Vini Sparks DO [address] [place] [address] documented in this encounterHolzer Health System11-11-2024 Instructions* Patient Instructions* Vini Sparks DO - 02/26/2024 11:08 AM EST Magnesium glycinate or gluconate 400-500 mg in the evening to help symptoms Vitamin B12 once a day 1000 mcg a day in the AM documented in this encounterHolzer Health System10-28-2024 Telephone encounter Note * Telephone Encounter - Talia Toro RN - 02/12/2024 10:58 AM EDT Pt called and is notified of providers message and instructions. Pt voices understanding. Talia Toro RN [facility]10-28-2024 Miscellaneous Notes* Telephone Encounter - Talia Toro [...] calling: self Call patient at: at home [phone] (home) Was an appointment scheduled: No Closing statement: Results or non-symptom based questions: Thank you for calling [facility], your call will be returned within the next business day. Jyoti Kinney documented in this encounterHolzer Health System10-26-2024 Telephone encounter Note * Telephone Encounter - Vini Sparks DO - 02/10/2024 12:35 PM EDT Orders placed for fasting labs Please inform patient Vini Sparks DO [facility]10-25-2024 Telephone encounter Note* Telephone Encounter - Jyoti Santoyo - 02/09/2024 3:18 PM EDT Ica is calling Vini Sparks DO today with concern regarding Lab Orders Patient would like to do lab work prior to upcoming appointment. Thank you. Patient has been identified by name and birthdate. Duration of symptoms: N/A Person calling: self Call patient at: at home [phone] (home) Was an appointment scheduled: No Closing statement: Results or non-symptom based questions: Thank you for calling [facility], your call will be returned within the next business day. Jyoti Kinney [facility]10-25-2024 Telephone encounter Note* Telephone Encounter - Jyoti [...] Owenselizabeth Kinney February 09, 2024 3:17 PM [facility]10-25-2024 Miscellaneous Notes* Telephone Encounter - Jyoti Santoyo [...] 09, 2024 3:17 PM documented in this encounterHolzer Health System10-15-2024 NoteHNO ID: [id number] Author: OWEN LOPEZ RN Service: ? Author [...] 02/26/2024 10:40 AM Vini Sparks, [facility] [place] 6 month follow up Contacted for: Routine Telephonic Outreach Contact made with patient: No, unable to leave message. Will reattempt call Owen Lopez RN January 30, 2024 2:04 [facility]10-12-2024 NoteHNO ID: [id number] Author: OWEN LOPEZ RN Service: ? Author [...] 02/26/2024 10:40 AM Vini Sparks, Family [facility] [place] 6 month follow up Contacted for: Routine Telephonic Outreach Contact made with patient: No, unable to leave message. Will reattempt call Owen Lopez RN January 27, 2024 4:44 [facility] History of Present illness Narrative* Owen Lopez [...] 27, 2024 4:44 PM documented in this encounterHolzer Health System10-12-2024 NotePatient Outreach ([facility]) HARJIT BRADSHAW ([id number]) 1940 F Date Time Provider Department 01/27/24 [...] Owen Lopez RN 01/30/2024 2:05 PM Signed [facility] Telephonic Outreach Provider Action/MISBAH HTN, depression, breast [...] Date Reviewed: 12/04/2023 Reviewed by: 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 APRN.DISTRICT MANAGER - Fully Assessed Reason for Visit: community monitoring outreach [Other] Cmt: [facility] telephonic Prescriptions as of 01/30/2024 - sertraline [...] 08/15/2022 Encounter Status:Closed by OWEN LOPEZ on 01/27/24[facility] 01-12-2024 Telephone encounter Note* Telephone Encounter - Ailin Alanis - 01/12/2024 10:50 AM EDT Spoke with patient and scheduled. Printed and mailed schedule to patient. Ailin Alanis [facility]09-27-2024 Miscellaneous Notes* Telephone Encounter - Ailin Alanis [...] week after mammogram. Thank you. 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 APRN.DISTRICT MANAGER documented in this encounterHolzer Health System09-27-2024 Telephone encounter Note * Telephone Encounter - Fabiana De Los Santos LPN - 01/12/2024 9:16 AM EDT Patient still needs scheduled. Fabiana De Los Santos LPN [facility]09-27-2024 Telephone encounter Note* Telephone Encounter - Herminia Levin - 01/12/2024 8:52 AM EDT Pt called back and was given info about mammogram. Patient voiced understanding. [facility]09-27-2024 Telephone encounter Note* Telephone Encounter - Fabiana De Los Santos LPN - 01/12/2024 8:48 AM EDT Unable to get through to patient. Fabiana De Los Santos LPN [facility]09-26-2024 Telephone encounter Note* Telephone Encounter - Ailin Alanis - 01/11/2024 1:57 PM EDT Attempted twice to contact patient - phone rings once, then sounds like someone picks up, hear 2 clicks about 4 seconds apart and then the call disconnects. Ailin Alanis [facility]09-26-2024 Telephone encounter Note* Telephone Encounter - 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 APRN.CNP - 01/11/2024 1:51 PM EDT Please inform pt. that her R mammogram is fine. R mammogram due in one year-OV one week after mammogram. Thank you. 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 APRN.DISTRICT MANAGER [facility]09-25-2024 Note* Letter - Coordinator, Mammography - 01/10/2024 9:36 PM EDT January 11, 2024 PID: [id number] Harjit Bradshaw [address] [place] [phone] Dear Ms. Bradshaw, We are pleased to [...] report will be kept on file at [facility] as part of your permanent medical record and are available for your continuing care. Thank you for allowing us to help in meeting your health care needs. Sincerely, Dr. Whiteside Interpreting Radiologist [facility] [place] (Normal over 40) [facility]09-25-2024 Miscellaneous Notes* Letter - Coordinator, Mammography - 01/10/2024 9:36 PM EDT January 11, 2024 PID: [id number] Harjit Bradshaw [address] [place] [phone] Dear Ms. Bradshaw, We are pleased to [...] report will be kept on file at [facility] as part of your permanent medical record and are available for your continuing care. Thank you for allowing us to help in meeting your health care needs. Sincerely, Dr. Whiteside Interpreting Radiologist [facility] (Normal over 40) documented in this encounterHolzer Health System09-23-2024 History of Present illness Narrative* Anila Flynn [...] PATIENT PRESENTS WITH AN IMPLANTABLE OR ATTACHED COLD HEADER: No RADIOLOGY DEPARTMENT: Mammography PERIPHERAL IV DATA: Not applicable SIGNED BY: Patricia Rudolph January 08, 2024 11:10 AM documented in this encounterHolzer Health System09-13-2024 History of Present illness Narrative* Owen Lopez [...] message. Will reattempt call in two weeks Owne Lopez RN December 29, 2023 9:49 AM documented in this encounterHolzer Health System09-04-2024 History of Present illness Narrative* Owen Lopez RN - 12/20/2023 4:19 PM EDT [facility] Telephonic Outreach Provider Action/FYI Contacted for: Routine Telephonic Outreach Contact made with patient: No, unable to leave message. Will reattempt call Owen Lopez RN December 20, 2023 4:19 PM documented in this encounterHolzer Health System08-19-2024 Telephone encounter Note * Telephone Encounter - Ashley King - 12/04/2023 3:52 PM EDT Patient called requesting PCP to review today's OV notes from 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 CNP for a second opinion on plan of care. ASSESSMENT/PLAN: 1. 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 [facility]08-19-2024 Miscellaneous Notes* Telephone Encounter - Ashley King - 12/04/2023 3:52 PM EDT Patient called requesting PCP to review today's OV notes from 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 CNP for a second opinion on plan of care. ASSESSMENT/PLAN: 1. 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 documented in this encounterHolzer Health System08-19-2024 History of Present illness Narrative* 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 [...] volume. The malignancy was both ER and GA positive (both > 95%, strong) and HER-2 [...] [facility] 12/14/18. I get so upset. 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 Appetite:Good. Wt. 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 APRN.CNP documented in this encounterHolzer Health System08-08-2024 History of Present illness Narrative* Owen Lopez [...] 23, 2023 3:02 PM documented in this encounterHolzer Health System08-02-2024 Telephone encounter Note * Telephone Encounter - Laurie Johnson LPN - 11/17/2023 12:50 PM EDT Patient taking 2 at bedtime, please review. [facility]08-02-2024 Miscellaneous Notes* Telephone Encounter - Laurie Johnson [...] 17, 2023 12:18 PM documented in this encounterHolzer Health System08-02-2024 Telephone encounter Note * Telephone Encounter - [...] Amparo Kinney November 17, 2023 12:18 PM [facility]07-11-2024 History of Present illness Narrative* Owen Lopez [...] at home 12/04/2023 11:30 AM 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 APRN.DISTRICT MANAGER Hematology/Oncology 1 YR OV/MAMM 01/05/23* Contacted for: Routine Telephonic Outreach Contact made with patient: No, unable to leave message. Will reattempt call Owen Lopez RN October 26, 2023 11:47 AM documented in this encounterHolzer Health System07-05-2024 Telephone encounter Note * Telephone Encounter - [...] Jyoti Kinney October 20, 2023 2:46 PM [facility]07-05-2024 Miscellaneous Notes* Telephone Encounter - Jyoti Santoyo [...] 20, 2023 2:46 PM documented in this encounterHolzer Health System06-26-2024 History of Present illness Narrative* Owen Lopez RN - 10/11/2023 11:47 AM EDT [facility] Telephonic Outreach Provider Scooter/MISBAH LVM HTN, depression, [...] 11, 2023 11:48 AM documented in this encounterHolzer Health System05-29-2024 History of Present illness Narrative* Owen Lopez RN - 09/13/2023 1:47 PM EDT [facility] Telephonic Outreach Provider Scooter/MISBAH Spoke to pt, [...] daily weight at home? No Based on alternative energy technician, the following disposition is advised: No symptoms or symptoms present, not severe. Routed to: No Action Needed ABNER Education Provided this Outreach: No Owen Lopez RN September 13, 2023 1:53 PM documented in this encounterHolzer Health System05-29-2024 Telephone encounter Note * Telephone Encounter - [...] 02/26/2024 Please advise. Thank you. Tiarra Adler. [facility]05-29-2024 Miscellaneous Notes* Telephone Encounter - Tiarra Adler [...] Thank you. Tiarra Adler. documented in this encounterHolzer Health System05-08-2024 Telephone encounter Note * Telephone Encounter - Randy Aguilera LPN - 08/23/2023 6:19 PM EDT Pt. informed. [facility]05-08-2024 Miscellaneous Notes* Telephone Encounter - Randy Geiger LPN - 08/23/2023 6:19 PM EDT Pt. informed. * Telephone Encounter - Ayesha Tran APRN.CNP - 08/23/2023 6:13 PM EDT Please call patient and let her know that lab work results all look great and stable. No concerns or abnormalities. Thank you, Ayehsa Tran APRN.CNP documented in this encounterHolzer Health System05-08-2024 Telephone encounter Note * Telephone Encounter - Ayesha Tran APRN.CNP - 08/23/2023 6:13 PM EDT Please call patient and let her know that lab work results all look great and stable. No concerns or abnormalities. Thank you, Ayesha Tran APRN.DISTRICT MANAGER [facility]05-07-2024 History of Present illness Narrative* Vini Sparks, [...] ARTHROPLASTY TOTAL SHOULDER Left 01/09/2019 Dr. David Nieot @ [facility]; L reverse total shoulder replacement; L distal [...] plan. See patient instructions. Vini Sparks DO [address] [place] [address] [place] documented in this encounterHolzer Health System05-01-2024 History of Present illness Narrative* Owen Lopez [...] 16, 2023 12:15 PM documented in this encounterHolzer Health System04-17-2024 Miscellaneous Notes* Telephone Encounter - Jodie Dupont [...] you. María Elena Brown. documented in this encounterHolzer Health System04-17-2024 History of Present illness Narrative* Owen Lopez, [...] 02, 2023 12:37 PM documented in this encounterHolzer Health System03-20-2024 History of Present illness Narrative* Owen Lopez RN - 07/05/2023 11:36 AM EDT [facility] Telephonic Outreach Provider Action/ROSINAI LVM HTN, depression, breast cancer with mast 08/21 PCP appt Contacted for: Routine Telephonic Outreach Contact made with patient: No, left message. Owen Lopez RN July 05, 2023 11:40 AM documented in this encounterHolzer Health System03-15-2024 Miscellaneous Notes* Telephone Encounter - Zita Capps MA - 06/30/2023 8:30 AM EDT Patient notified of results and recommendations as listed below, verbalized understanding. Zita Capps MA * Telephone Encounter - Gray Cooper APRN.MARYANA - 06/30/2023 7:11 AM EDT Please notify patient positive for covid. Is past treatment window. Treat with otc cold/flu medication. F/u for new or worsening s/s. documented in this encounterHolzer Health System03-14-2024 History of Present illness Narrative* Patience Winter [...] SHOULDER Left 01/09/2019 Dr. David Nieto @ [facility]; L reverse total shoulder replacement; L distal [...] no details, 85 Coronary Artery Disease Father ID, 94 Cancer Sister 57 liver Cancer Brother [...] illness Patience Winter APRN.MARYANA documented in this encounterHolzer Health System03-14-2024 Instructions* Patient Instructions* Patience Winter APRN.CNP - [...] illness Patience Winter APRN.MARYANA documented in this encounterHolzer Health System02-06-2024 History of Present illness Narrative* Owen Lopez RN - 05/23/2023 2:15 PM EST [facility] Telephonic Outreach Provider Action/FYI Pt goal, adls [...] goal align with programs offered at the [facility]? Yes Chronic Disease Management patient goals yes: Weight loss Most people know what to do to become healthier, yet struggle to put it into action on their own, It can be hard to maintain a healthy lifestyle, especially when life is so stressful. Can we connect you with a [facility] Health Glass Edger to find a program that could help [...] of breath with activity? No Based on alternative energy technician, the following disposition is advised: No symptoms or symptoms present, not severe. Routed to: No Action Needed ABNER Education Provided this Outreach: No Owen Lopez RN May 23, 2023 2:13 PM documented in this encounterHolzer Health System12-05-2023 History of Present illness Narrative* Owen Lopez RN - 03/21/2023 1:21 PM EST CD Telephonic Outreach Provider Scooter/MISBAH LVM HTN, depression, breast cancer with mast Contacted for: Routine Telephonic Outreach Contact made with patient: No, left message. Owen Lopez RN March 21, 2023 1:25 PM documented in this encounterHolzer Health System12-04-2023 Miscellaneous Notes* Telephone Encounter - Katlin Sandoval [...] 08/2023 Last refill: 02/2022 documented in this encounterHolzer Health System11-01-2023 Miscellaneous Notes* Telephone Encounter - Karlene Rahman [...] Ligia- over my head toni at [facility] calling asking for prescription for pt Mastectomy bras and breast prosthetics. Stated pt needs 3 more [phone] Please assist documented in this encounterHolzer Health System10-24-2023 Miscellaneous Notes* Telephone Encounter - Laurie Johnson [...] you. Laurie Johnson LPN. documented in this encounterHolzer Health System10-18-2023 Miscellaneous Notes* Telephone Encounter - Randy Aburto [...] notify patient. Randy Kinney documented in this encounterHolzer Health System10-17-2023 History of Present illness Narrative* Owen Lopez RN - 01/31/2023 1:50 PM EDT [facility] Telephonic Outreach Provider Action/FYI Fasting labs prior to PCP appt LVM HTN, depression, breast cancer with mast 02/21 PCP appt Contacted for: Routine Telephonic Outreach Contact made with patient: No, left message. Owen Lopez RN January 31, 2023 1:52 PM documented in this encounterHolzer Health System09-26-2023 Miscellaneous Notes* Telephone Encounter - Lexy Garcia - 01/10/2023 7:32 AM EDT Patient given results and verbalized understanding of instructions given. Lexy Garcia * Telephone Encounter - Lexy Garcia - 01/10/2023 7:32 AM EDT ----- Message from Patience Winter APRN.DISTRICT MANAGER sent at 01/10/2023 7:23 AM EDT ----- Please advise patient the COVID test was negative. documented in this encounterHolzer Health System09-25-2023 History of Present illness Narrative* Grace Ramirez [...] 09, 2023 11:19 AM documented in this encounterHolzer Health System09-22-2023 Miscellaneous Notes* Telephone Encounter - Fabiana De Los Santos LPN - 01/06/2023 4:32 PM EDT Patient notified. Fabiana De Los Santos LPN * Telephone Encounter - 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 APRN.CNP - 01/06/2023 2:33 PM EDT Please inform pt. that her mammogram looks good. Follow up as scheduled. Thank you. 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 APRN.DISTRICT MANAGER documented in this encounterHolzer Health System09-22-2023 Miscellaneous Notes* Telephone Encounter - Jodie Dupont [...] and advise. Rama Kinney documented in this encounterHolzer Health System09-21-2023 History of Present illness Narrative* Kiya Dos [...] 05, 2023 11:01 AM documented in this encounterHolzer Health System09-19-2023 History of Present illness Narrative* Owen Lopez RN - 01/03/2023 1:36 PM EDT [facility] Telephonic Outreach Provider Action/MISBAH DURON HTN breast cancer depression 921 mammogram 02/21 PCP f/u Contacted for: Routine Telephonic Outreach Contact made with patient: No, left message. Owen Lopez RN January 03, 2023 1:44 PM documented in this encounterHolzer Health System08-22-2023 History of Present illness Narrative* Owen Lopez RN - 12/06/2022 2:57 PM EDT [facility] Telephonic Outreach Provider Action/FYI LVM HTN breast cancer depression 02/15 PCP f/u Contacted for: Routine Telephonic Outreach Contact made with patient: No, left message. Owen Lopez RN December 06, 2022 2:59 PM documented in this encounterHolzer Health System08-21-2023 Miscellaneous Notes* Telephone Encounter - Tiarra Adler [...] notify patient. Tiarra Adler documented in this encounterHolzer Health System08-18-2023 History of Present illness Narrative* 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 [...] volume. 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 APRN.DISTRICT MANAGER documented in this encounterHolzer Health System07-28-2023 History of Present illness Narrative* Owen Lopez [...] daily weight at home? No Based on alternative energy technician, the following disposition is advised: No symptoms or symptoms present, not severe. Routed to: No Action Needed ABNER Education Provided this Outreach: No Owen Lopez RN November 11, 2022 2:19 PM documented in this encounterHolzer Health System06-30-2023 History of Present illness Narrative* Owen Lopez RN - 10/14/2022 2:00 PM EDT [facility] Telephonic Outreach Provider Scooter/MISBAH LVM HTN depression Contacted for: Routine Telephonic Outreach Contact made with patient: No, left message. Owen Lopez RN October 14, 2022 2:02 PM documented in this encounterHolzer Health System06-20-2023 Miscellaneous Notes* Telephone Encounter - Irasema Henyr Ma - 10/04/2022 10:17 AM EDT Last [...] patient. Amparo Brown Pss documented in this encounterHolzer Health System06-14-2023 Miscellaneous Notes* Telephone Encounter - Silvia Aviles [...] notify patient. Silvia Aviles documented in this encounterHolzer Health System06-01-2023 History of Present illness Narrative* Owen Lopez RN - 09/15/2022 11:31 AM EDT [facility] Telephonic Outreach Provider Action/FYI LVM HTN depression Contacted for: Routine Telephonic Outreach Contact made with patient: No, left message. Owen Lopez RN September 15, 2022 11:32 AM documented in this encounterHolzer Health System05-04-2023 History of Present illness Narrative* Owen Lopez RN - 08/18/2022 9:30 AM EDT Care Coordination Deferred Outreach Provider Action / FYI: Pt seen by PCP in office on 08/15 therefore outreach deferred Deferred outreach to patient at this time due to: Visit with provider today Next Outreach date: 09/15/22 Owen Lopez RN August 18, 2022 9:30 AM documented in this encounterHolzer Health System05-03-2023 Miscellaneous Notes* Telephone Encounter - Shayla Jessica [...] stable Vini Sparks DO documented in this encounterHolzer Health System05-01-2023 Miscellaneous Notes* Addendum Note - Vini Sparks DO - 08/15/2022 11:59 AM EDTAddended by: VINI SPARKS on: 08/15/2022 11:59 AM Modules accepted: Orders documented in this encounterHolzer Health System05-01-2023 History of Present illness Narrative* Vini Sparks [...] SHOULDER Left 01/09/2019 Dr. David Nieto @ [facility]; L reverse total shoulder replacement; L distal [...] no details, 85 Coronary Artery Disease Father ID, 94 Cancer Sister 57 liver Cancer Brother [...] agreed with the plan. Vini Sparks DO [address] [place] [address] documented in this encounterHolzer Health System04-25-2023 Miscellaneous Notes* Telephone Encounter - Jenniferjignesh Haskins [facility] - 08/09/2022 10:39 AM EDT Patient has been identified by name and date of : Yes Requested Prescriptions Pending Prescriptions Disp Refills metoprolol tartrate, short acting, (LOPRESSOR) 50 mg tablet 180 tablet 3 Sig: Take 1 tablet by mouth twice daily. RX INSTRUCTIONS: Patient aware RX will be sent to pharmacy. No need to notify patient. [facility]ins [facility] documented in this encounterHolzer Health System04-19-2023 History of Present illness Narrative* Owen Lopez RN - 08/03/2022 2:38 PM EDT CDM Telephonic Outreach Provider Action/FYI LVM HTN depression 08/15 PCP appt Contacted for: Routine Telephonic Outreach Contact made with patient: No, left message. Owen Lopez RN August 03, 2022 2:39 PM documented in this encounterHolzer Health System04-12-2023 Miscellaneous Notes* Telephone Encounter - Erik Smith [...] triage and will callpharmacy. Hello, you've reached [facility], my name is Erik [...] care for new/worsening symptoms. documented in this encounterHolzer Health System04-03-2023 Miscellaneous Notes* Telephone Encounter - Kiya Jamison [...] advise. Kiya Jamison LPN documented in this encounterHolzer Health System03-22-2023 History of Present illness Narrative* Owen Lopez [...] like to speak with a social work steam and power supervisor to help give you support for any [...] you up for automated weekly questionnaires through [employer]. This is an easy way for us [...] PtOutreach and End outreach. documented in this encounterHolzer Health System02-27-2023 History of Present illness Narrative* Radha Jurado APRN.DISTRICT MANAGER - 06/13/2022 11:09 AM EST Chief Complaint [...] SHOULDER Left 01/09/2019 Dr. David Nieto @ [facility]; L reverse total shoulder replacement; L distal [...] no details, 85 Coronary Artery Disease Father ID, 94 Cancer Sister 57 liver Cancer Brother [...] TABLET Radha Jurado APRN.MARYANA documented in this encounterHolzer Health System02-02-2023 Miscellaneous Notes* Telephone Encounter - Zayda Spence LPN - 05/19/2022 9:50 AM EST Rec'd covermymed PA for sertraline 25 mg. Called the pharmacy pt paid al for this rx. The issue would be the dose and qty. Insurance would not this to be 50 mg one daily not 25 mg two daily for next refill. documented in this encounterHolzer Health System01-30-2023 Miscellaneous Notes* Telephone Encounter - Purnima Galvez LPN - 05/16/2022 9:35 AM EST Patient returned call and went over notes below from Dr Sparks with understanding.Patient had already picked up rx and stated medication. Scheduled appt with [facility] COMPRESS[facility] for 06/13/2022. * Telephone Encounter - Deana [...] would like it to go to [facility] in [place]. Talia Toro RN * Telephone Encounter - Vini Sparks DO - 05/13/2022 7:55 AM EST Patient would need to follow up with JOURNEY LINEMAN regarding the hormone concerns. I am okay [...] you can talk to? Spouse Protocols used: [id number] [facility] OUTREACH Provider Action/FYI: Patient feels angry at lot at spouse. States that she feels irritable and can cry at the drop of a hat. Feels that maybe she should go back on a hormone replacement to help stabilize her mood. She does not feel that she is a harm to herself or others. Helrge, you've reached [facility], my name is Liliana Love [...] please call us back. documented in this encounterHolzer Health System01-17-2023 Miscellaneous Notes* Telephone Encounter - Estee Alfonso LPN - 05/03/2022 11:32 AM EST Orders faxed. Estee Alfonso LPN * Telephone Encounter - 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 APRN.CNP - 05/03/2022 10:55 AM EST Rx done. 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 APRN.DISTRICT MANAGER * Telephone Encounter - Ashley King - 05/03/2022 10:17 AM EST [facility] is requesting a new prescription for the mastectomy bras [phone]. Ph. [phone]. The patient is eligible to receive 3 bras per year. documented in this encounterHolzer Health System01-11-2023 History of Present illness Narrative* Peace Hylton RN - 04/27/2022 9:12 AM EST [facility] CDM Enrollment Provider Action/FYI: Lexx this is Peace Hylton RN your nurse Sample Taker Operator. I am calling to provide you with a phonenumber to connect you with [facility] services. This number is available 7 days a week from 8am-8pm and provides you with one call access to nursing, appointments, and other valuable resources.I can also send this information to your Visiprisehart. Please take the time to write this number down . - AGREES TO MONTHLY OUTREACHES - DENIES NEEDS OR CONCERNS AT THIS TIME Patient referred by: [facility] Alissa Contact made with patient: Yes - Patient identified by name and . Discussed care with patient Lexx this is Peace Hylton RN and I am calling from Vini Sparks DO office at the [facility]. I am a RN Sample Taker Operator with our [facility] Chronic Disease Management program. [...] few questions once a week through your [employer] account. It will automatically show up for [...] stressful. Can we connect you with a [facility] Health Glass Edger to find a program that could help [...] from today s date) documented in this encounterHolzer Health System01-09-2023 Miscellaneous Notes* Telephone Encounter - Gloria eJrez Pss - 04/25/2022 8:53 AM EST Pharmacy verified in [facility] Patient has been identified by name and [...] advise. Gloria Jerez Pss documented in this encounterHolzer Health System10-20-2022 Miscellaneous Notes* Telephone Encounter - Neha Mcmahon Ma - 02/03/2022 9:17 AM EDT Pt informed, verbalized understanding Neah Mcmahon Ma * Telephone Encounter - Vini [...] density. Vini Sparks DO documented in this encounterHolzer Health System10-17-2022 Miscellaneous Notes* Telephone Encounter - Neha Mcmahon [...] you, Ayesha Jefferson APRN.MARYANA documented in this encounterHolzer Health System10-13-2022 Miscellaneous Notes* Telephone Encounter - Neha Mcmahon [...] in potassium. I would like a redraw [facility] tomorrow to reassess this and if still elevated we may need to change HTN regimen. Thank you, Ayesha Jefferson APRN.MARYANA * Telephone Encounter - Ailin Barrow RN - 01/27/2022 1:11 PM EDT Patient calls and is asking about labs results that were done on 01/21/2022. Please review and advise, Ailin Barrow RN documented in this encounterCleveland [phone] History of Present illness Narrative* Ayesha Jefferson, DIMITRIOS.DISTRICT MANAGER - 01/21/2022 11:19 AM EDT Chief Complaint Patient presents with: BP Check HPI Ica Senia Bradshaw is a 81 year old female who presents here today for Above Complaints. Ica is an established patient of Dr. Sparks, and myself. Concerns today... HTN --- 2 ED visits on 01/17 and 01/18 at [place] [facility] for high BP and headaches. Recent [...] was 200s systolic while in office cuff [id number] systolic. Pt does admit BP cuff to [...] SHOULDER Left 01/09/2019 Dr. David Nieto @ [facility]; L reverse total shoulder replacement; L distal [...] no details, 85 Coronary Artery Disease Father ID, 94 Cancer Sister 57 liver Cancer Brother [...] agreeable to treatment plan. Ayesha Jefferson APRN.CNP [address] [place] [address] documented in this encounterHolzer Health System10-05-2022 Miscellaneous Notes* Telephone Encounter - Ayesha Jefferson APRN.CNP - 01/19/2022 7:36 PM EDT Agree with below. Ayesha Jefferson APRN.CNP * Telephone Encounter - Brigitte Guerra LPN - 01/18/2022 2:09 PM EDT Pt's caregiver calls from [facility] stating this is the second day pt has been to the ER for high blood pressure and headache. Caregiver reports that today pt's bp was over 200 and pt said it felt like her head was going to explode. Spoke to Dr. Sparks who advised that pt should be admitted to the hospital. Caregiver notified ofsa. Brigitte Guerra LPN documented in this encounterHolzer Health System09-19-2022 Instructions* Patient Instructions* Ashley Flores APRN.CNP - 01/03/2022 2:32 PM EDT 1.) Recommend monitoring blood pressure at home, 1-2 times daily, write down numbers. 2.) Take Metoprolol 1.5 tablets twice daily. 3.) Get plenty of rest and stay hydrated 4.) foreign object removed from left ear. 5.) If symptoms do not improve please contact the office. documented in this encounterHolzer Health System09-19-2022 History of Present illness Narrative* Ashley Flores [...] Used tylenol and dramamine. The medication helped. [place] better today. Blood pressure was elevated at [...] SHOULDER Left 01/09/2019 Dr. David Nieto @ [facility]; L reverse total shoulder replacement; L distal [...] no details, 85 Coronary Artery Disease Father ID, 94 Cancer Sister 57 liver Cancer Brother [...] APRN.MARYANA This note was partially generated using [employer] voice recognition system. Note was reviewed for accuracy. There may be minor misspellings or grammar miscues with [employer] voice recognition. documented in this encounterHolzer Health System09-19-2022 Miscellaneous Notes* Telephone Encounter - Shayla Jessica [...] slurred speech. 10. : No Protocols used: [id number] documented in this encounterHolzer Health System09-16-2022 Miscellaneous Notes* Telephone Encounter - Fabiana De Los Santos LPN - 12/31/2021 3:19 PM EDT Patient notified. Fabiana De Los Santos LPN * Telephone Encounter - 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 APRN.CNP - 12/31/2021 3:01 PM EDT Please inform pt. that her mammogram looks good. Follow up as scheduled. Thank you. 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 APRN.MARYANA documented in this encounterHolzer Health System09-16-2022 Miscellaneous Notes* Letter - Mammography Coordinator - 12/31/2021 1:03 PM EDT December 31, 2021 PID: [id number] Harjit Bradshaw [address] [place] [id number] Dear Ms. Bradshaw, We are pleased to [...] report will be kept [facility] file at [facility] as part of your permanent medical record and are available for your continuing care. Thank you for allowing us to help in meeting your health care needs. Sincerely, Dr. Sloan Interpreting Radiologist [facility] (Normal over 40) documented in this encounterHolzer Health System09-16-2022 History of Present illness Narrative* RT Darryl(R) [...] 31, 2021 11:00 AM documented in this encounterHolzer Health System08-31-2022 History of Present illness Narrative* Vini Sparks [...] [facility] She was seen by Deana Du CNP. She was complaining of headaches and dizziness, found to have chronic changes without acute findingon MRI brain. She was started on Zoloft and this was titrated up. Her wellbut[facility] Mood, feels it is improved, [...] SHOULDER Left 01/09/2019 Dr. David Nieto @ [facility]; L reverse total shoulder replacement; L distal [...] plan. See patient instructions. Vini Sparks DO [address] [place] [address] documented in this encounterHolzer Health System08-18-2022 History of Present illness Narrative* 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 APRN.DISTRICT MANAGER - 12/02/2021 11:39 AM EDT Chief Complaint [...] volume. 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 APRN.MARYANA documented in this encounterHolzer Health System07-08-2022 Miscellaneous Notes* Telephone Encounter - Purnima Galevz LPN - 10/22/2021 2:24 PM EDT Patient returned call and went over results, notes from Ayesha Jefferson [facility] COMPRESS[facility] with understanding. * Telephone Encounter - Neha [...] you, Ayesha Jefferson APRN.CNP documented in this encounterHolzer Health System07-07-2022 Instructions* Patient Instructions* Ayesha Jefferson APRN.CNP - 10/21/2021 2:02 PM EDT Blood work today. Decreased zoloft to 100 mcg daily -- 1 tablet vs 1.5 tablets daily. Follow-up in 6 weeks. documented in this encounterHolzer Health System07-07-2022 History of Present illness Narrative* Ayesha Jefferson [...] SHOULDER Left 01/09/2019 Dr. David Nieto @ [facility]; L reverse total shoulder replacement; L distal [...] no details, 85 Coronary Artery Disease Father ID, 94 Cancer Sister 57 liver Cancer Brother [...] agreeable to treatment plan. Ayesha Jefferson APRN.MARYANA [address] [place] [address] documented in this encounterHolzer Health System06-27-2022 Miscellaneous Notes* Telephone Encounter - Danielito Terrell [...] patient. María Elena Brown documented in this encounterHolzer Health System06-15-2022 Miscellaneous Notes* Telephone Encounter - Shira Weaver [...] you, Ayesha Jefferson APRN.MARYANA documented in this encounterHolzer Health System06-11-2022 Miscellaneous Notes* Telephone Encounter - Randy Aguilera LPN - 09/25/2021 8:23 AM EDT Pt. informed. Randy Aguilera LPN * Telephone Encounter - Radha Jurado APRN.CNP - 09/24/2021 4:50 PM EDT Please let ICA know that the CT of her brain looks good, no concerns. Radha Jurado APRN.CNP documented in this encounterHolzer Health System06-10-2022 Instructions* Patient Instructions* Radha Jurado APRN.CNP - 09/24/2021 1:21 PM EDT Schedule your carotid ultrasound and CT scan. Go to the ED if this happens again! documented in this encounterHolzer Health System06-10-2022 History of Present illness Narrative* Radha Jurado [...] SHOULDER Left 01/09/2019 Dr. David Nieto @ [facility]; L reverse total shoulder replacement; L distal [...] no details, 85 Coronary Artery Disease Father ID, 94 Cancer Sister 57 liver Cancer Brother [...] BLD Radha Jurado APRN.CNP documented [facility] encounter[facility]* Diagnosis Transient cerebral ischemia, unspecified type- Primary Generalized weakness Other malaise and fatigue Aphasia Blurred vision Other specified visual disturbances documented in this encounter [facility] noteNo assessment information availableWPike Community Hospital Work Phone: Evaluation note* Diagnosis Anxious mood- Primary Anxiety state, unspecified Excessive sweating Generalized hyperhidrosis Dysthymia Dysthymic disorder Vitamin D deficiency Unspecified vitamin D deficiency documented in this encounter [facility]* Diagnosis 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 in female, estrogen receptor positive (HCC)- Primary Encounter for screening mammogram for high-risk patient documented in this encounter [facility]* Diagnosis Anxious mood- Primary Anxiety state, [...] Fatigue, unspecified type documented in this encounter [facility]* Diagnosis 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 in female, estrogen receptor positive (HCC) Encounter for screening mammogram for high-risk patient documented in this encounter [facility]* Diagnosis HYPERTENSION BENIGN- Primary Essential hypertension, benign Ear foreign body, left, initial encounter documented in this encounter [facility]* Diagnosis HYPERTENSION BENIGN- Primary Essential hypertension, benign Encounter for immunization Need for other specified prophylactic vaccination against single bacterial disease PALMA (generalized anxiety disorder) Generalized anxiety disorder Headaches Dyslipidemia Other and unspecified hyperlipidemia Hypothyroidism, acquired Unspecified hypothyroidism Fatigue, unspecified type documented in this encounter [facility]* Diagnosis Serum potassium elevated- Primary Hyperpotassemia documented in this encounter [facility]* Diagnosis HYPERTENSION BENIGN Essential hypertension, benign documented in this encounter [facility]* Diagnosis Vertigo- Primary Dizziness and giddiness documented in this encounter [facility]* Diagnosis 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 in female, estrogen receptor positive (HCC)- Primary documented in this encounter [facility]* Diagnosis Dysthymia- Primary Dysthymic disorder documented in this encounter [facility]* Diagnosis 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 (HCC)- Primary documented in this encounter [facility]* Diagnosis Dysthymia Dysthymic disorder documented in this encounter [facility]* Diagnosis HYPERTENSION BENIGN Essential hypertension, benign documented in this encounter [facility]* Diagnosis Essential hypertension, benign- Primary Dyslipidemia [...] recurrent episode, unspecified documented in this encounter [facility]* Diagnosis HYPERTENSION BENIGN Essential hypertension, benign documented in this encounter [facility]* Diagnosis Dysthymia Dysthymic disorder HYPERTENSION BENIGN Essential hypertension, benign documented in this encounter [facility]* Diagnosis 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 in female, estrogen receptor positive (HCC)- Primary Encounter for screening mammogram for high-risk patient Depression, recurrent (HCC) Major depressive disorder, recurrent episode, unspecified documented in this encounter [facility]* Diagnosis HYPERTENSION BENIGN Essential hypertension, benign documented in this encounter [facility]* Diagnosis Dysthymia Dysthymic disorder documented in this encounter [facility]* Diagnosis Encounter for immunization- Primary Need for other specified prophylactic vaccination against single bacterial disease documented in this encounter [facility]* Diagnosis 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 in female, estrogen receptor positive (HCC)- Primary H/O left mastectomy Acquired absence of breast and nipple documented in this encounter [facility]* Diagnosis 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 in female, estrogen receptor positive (HCC) Encounter for screening mammogram for high-risk patient documented in this encounter [facility]* Diagnosis Dyslipidemia Other and unspecified hyperlipidemia documented in this encounter [facility]* Diagnosis Viral URI with cough- Primary Acute upper respiratory infections of unspecified site Exposure to COVID-19 virus documented in this encounter [facility]* Diagnosis HYPERTENSION BENIGN Essential hypertension, benign Dysthymia Dysthymic disorder documented in this encounter [facility]* Diagnosis Dyslipidemia- Primary Other and unspecified [...] receptor positive (HCC) documented in this encounter [facility]* Diagnosis HYPERTENSION BENIGN Essential hypertension, benign documented in this encounter [facility]* Diagnosis Dysthymia Dysthymic disorder documented in this encounter [facility]* Diagnosis Personal history of breast cancer- Primary Personal history of malignant neoplasm of breast Encounter for screening mammogram for high-risk patient documented in this encounter [facility]* Diagnosis Acute cough [facility] Diagnosis Personal history of breast cancer Personal history of malignant neoplasm of breast Encounter for screening mammogram for high-risk patient documented in this encounter [facility]* Diagnosis 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 in female, estrogen receptor positive (HCC)- Primary Encounter for screening mammogram for high-risk patient [facility]* Diagnosis HYPERTENSION BENIGN Essential hypertension, benign documented in this encounter [facility]* Diagnosis Hypothyroidism, acquired- Primary Unspecified hypothyroidism Dyslipidemia Other and unspecified hyperlipidemia Vitamin D deficiency Unspecified vitamin D deficiency Vitamin B12 deficiency Other B-complex deficiencies documented in this encounter [facility]* Diagnosis Dysthymia Dysthymic disorder documented in this encounter [facility] note* Diagnosis Hypothyroidism, acquired- Primary Unspecified hypothyroidism [...] Fatigue, unspecified type documented in this encounter [facility]* Diagnosis Dysthymia Dysthymic disorder documented in this encounter [facility]* Diagnosis PALMA (generalized anxiety disorder)- Primary Generalized anxiety disorder Dysthymia Dysthymic disorder documented in this encounter [facility]* Diagnosis Medicare annual wellness visit, subsequent- [...] unspecified type (HCC) documented in this encounter [facility]* Diagnosis Hyperkalemia- Primary Hyperpotassemia documented in this encounter [facility]* Diagnosis HYPERTENSION BENIGN Essential hypertension, benign documented in this encounter [facility] note* Diagnosis Dyslipidemia Other and unspecified hyperlipidemia HYPERTENSION BENIGN Essential hypertension, benign documented in this encounter [facility] for referral (narrative)* Diagnostic Procedure Only (Routine) - Authorized Specialty Diagnoses / Procedures Referred By Ebenezer t Referred To Contact [facility] Diagnoses 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 in female, estrogen receptor positive (HCC) Encounter for screening mammogram for high-risk patient Procedures AMBROSE SCREENING W ORACIO SCREENING DIGITAL BREAST TOMOSYNTHESIS BI SCREENING MAMMOGRAPHY BI 2-VIEW BREAST INC Elissa Flores APRN.DISTRICT MANAGER [address] [place] [address] [facility] [address] [place] [address] Referral ID Status Reason Start Date Expiration Date Visits Requested Visits Authorized [id number] Authorized Auto-Generat ed Referral 12/02/2021 01/01/2023 1 1 T [facility] for referral (narrative)* Diagnostic Procedure Only (Routine) - Closed Specialty Diagnoses / Procedures Referred By Contac t Referred To Contact [facility] IMAGING Diagnoses 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 in female, estrogen receptor positive (HCC) Encounter for screening mammogram for high-risk patient Procedures AMBROSE SCREENING W ORACIO SCREENING DIGITAL BREAST TOMOSYNTHESIS BI SCREENING MAMMOGRAPHY BI 2-VIEW BREAST INC [facility] 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 APRN.DISTRICT MANAGER [address] [place] [address] [facility] [address] [place] [address] Referral ID Status Reason Start Date Expiration Date V isits Requested Visits Authorized [id number] Closed Auto-Generate d Referral 12/02/2021 01/01/2023 1 1 T [facility] for referral (narrative)* Diagnostic Procedure Only (Routine) - Authorized Specialty Diagnoses / Procedures Referred By Contac t Referred To Contact [facility] IMAGING Diagnoses 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 in female, estrogen receptor positive (HCC) Encounter for screening mammogram for high-risk patient Procedures AMBROSE SCREENING W ORACIO SCREENING DIGITAL BREAST TOMOSYNTHESIS BI SCREENING MAMMOGRAPHY BI 2-VIEW BREAST INC Elissa Flores APRN.DISTRICT MANAGER [address] [place] [address] [facility] [address] [place] [address] Referral ID Status Reason Start Date Expiration Date Visits Requested Visits Authorized [id number] Authorized Auto-Generat ed Referral 12/02/2022 01/01/2024 1 1 T [facility] for referral (narrative)* Diagnostic Procedure Only (Routine) - Closed Specialty Diagnoses / Procedures Referred By Contac t Referred To Contact [facility] IMAGING Diagnoses 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 in female, estrogen receptor positive (HCC) Encounter for screening mammogram for high-risk patient Procedures AMBROSE SCREENING W ORACIO SCREENING DIGITAL BREAST TOMOSYNTHESIS BI SCREENING MAMMOGRAPHY BI 2-VIEW BREAST INC [facility] 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 APRN.DISTRICT MANAGER [address] [place] [address] Br Imaging [address] [place] [address] Referral ID Status Reason Start Date Expiration Date V isits Requested Visits Authorized [id number] Closed Auto-Generate d Referral 12/02/2022 01/01/2024 1 1 [facility] for referral (narrative)* Diagnostic Procedure Only (Routine) - Authorized Specialty Diagnoses / Procedures Referred By Contac t Referred To Contact [facility] IMAGING Diagnoses Personal history of breast cancer Encounter for screening mammogram for high-risk patient Procedures AMBROSE SCREENING W ORACIO SCREENING DIGITAL BREAST TOMOSYNTHESIS BI SCREENING MAMMOGRAPHY BI 2-VIEW BREAST INC Elissa Flores APRN.DISTRICT MANAGER [address] [place] [address] [facility] [address] [place] [address] Referral ID Status Reason Start Date Expiration Date Visits Requested Visits Authorized [id number] Authorized Auto-Generat ed Referral 12/04/2023 01/02/2025 1 1 [facility] for referral (narrative)* Diagnostic Procedure Only (Routine) - Authorized Specialty Diagnoses / Procedures Referred By Contac t Referred To Contact [facility] IMAGING Diagnoses 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 in female, estrogen receptor positive (HCC) Encounter for screening mammogram for high-risk patient Procedures AMBROSE SCREENING W ORACIO SCREENING DIGITAL BREAST TOMOSYNTHESIS BI SCREENING MAMMOGRAPHY BI 2-VIEW BREAST INC [facility] 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 APRN.DISTRICT MANAGER [address] [place] [address] [facility] [address] [place] [address] Referral ID Status Reason Start Date Expiration Date Visits Requested Visits Authorized [id number] Authorized Auto-Generat ed Referral 01/10/2025 02/09/2025 1 1 [facility] for referral (narrative)No reason for referral information availableGood [facility] Work Phone: Reason for visit Narrative* Diagnostic [...] MAMMOGRAPHY BI 2-VIEW BREAST INC Elissa Flores APRN.DISTRICT MANAGER [address] [place] [address] [facility] [address] [place] [address] Referral ID Status Reason Start Date Expiration Date V isits Requested Visits Authorized [id number] Closed Auto-Generate d Referral 12/02/2021 01/01/2023 1 1 [facility] for visit Narrative* Diagnostic Procedure Only (Routine) - Closed Specialty Diagnoses / Procedures Referred By Ebenezer morgan Referred To Contact [facility] IMAGING Diagnoses 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 in female, estrogen receptor positive (HCC) Encounter for screening mammogram for high-risk patient Procedures AMBROSE SCREENING W ORACIO SCREENING DIGITAL BREAST TOMOSYNTHESIS BI SCREENING MAMMOGRAPHY BI 2-VIEW BREAST INC Elissa Flores APRN.DISTRICT MANAGER [address] [place] [address] [facility] [address] [place] [address] Referral ID Status Reason Start Date Expiration Date V isits Requested Visits Authorized [id number] Closed Auto-Generate d Referral 12/02/2022 01/01/2024 1 1 [facility] for visit Narrative* Diagnostic Procedure Only (Routine) - Closed Specialty Diagnoses / Procedures Referred By Ebenezer morgan Referred To Contact [facility] IMAGING Diagnoses Personal history of breast cancer Encounter for screening mammogram for high-risk patient Procedures AMBROSE SCREENING W ORACIO SCREENING DIGITAL BREAST TOMOSYNTHESIS BI SCREENING MAMMOGRAPHY BI 2-VIEW BREAST INC CAD 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, [employer].DISTRICT MANAGER [address] [place] [address] [facility] [address] [place] [address] Referral ID Status Reason Start Date Expiration Date V isits Requested Visits Authorized [id number] Closed Auto-Generate d Referral 12/04/2023 01/02/2025 1 1 [facility] Reason for Referral Specialty Diagnoses / Procedures Referred By Contac t Referred To Contact CT IMAGING Diagnoses Transient cerebral ischemia, unspecified type Generalized weakness Aphasia Blurred vision Procedures CT BRAIN WO IVCON CT HEAD/BRAIN W/O CONTRAST MATERIAL Radha Jurado, [employer].DISTRICT MANAGER [address] [place] [address] Ct Imaging Referral ID Status Reason Start Date Expiration Date Visits Requested Visits Authorized [id number] Pending Review Auto-Generat ed Referral 09/24/2021 10/24/2022 1 1 Specialty Diagnoses / Procedures Referred By Contac t [facility]erred To [facility] Diagnoses Transient cerebral ischemia, unspecified type Generalized weakness Aphasia Blurred vision Procedures ECG COMPLETE ECG ROUTINE ECG W/LEAST 12 LDS W/I&R Radha Jurado, [employer].DISTRICT MANAGER [address] [place] [address] [facility] [address] [place] [address] Referral ID Status Reason Start Date Expiration Date V isits Requested Visits Authorized [id number] Closed Auto-Generate d Referral 09/24/2021 09/24/2022 1 1 Specialty Diagnoses / Procedures Referred By Contac t Referred To Contact [facility] Diagnoses Transient cerebral ischemia, unspecified type Generalized weakness Aphasia Blurred vision Procedures US CAROTID BILAT Radha Jurado, [employer].DISTRICT MANAGER [address] [place] [address] Us Imaging Referral ID Status Reason Start Date Expiration Date Visits Requested Visits Authorized [id number] Authorized Auto-Generat ed Referral 09/24/2021 10/24/2022 1 1 Specialty Diagnoses / Procedures Referred By Contac t Referred To Contact Diagnoses 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 in female, estrogen receptor positive (HCC) Procedures BREAST PROSTHESIS, MASTECTOMY BRA 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, [employer].DISTRICT MANAGER [address] [place] [address] Referral ID Status Reason Start Date Expiration Date V isits Requested Visits Authorized [id number] Closed PCP Requested Referral 05/03/2022 08/01/2022 1 1 Specialty Diagnoses / Procedures Referred By Contac t Referred To Contact Diagnoses 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 (HCC) Procedures BREAST PROSTHESIS, MASTECTOMY BRA 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, [employer].DISTRICT MANAGER [address] [place] [address] Referral ID Status Reason Start Date Expiration Date V isits Requested Visits Authorized [id number] Closed PCP Requested Referral 05/16/2022 08/14/2022 1 1 Specialty Diagnoses / Procedures Referred By Contac t Referred To Contact Diagnoses 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 (HCC) Procedures BREAST PROSTHESIS, SILICONE 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, [employer].DISTRICT MANAGER [address] [place] [address] Referral ID Status Reason Start Date Expiration Date V isits Requested Visits Authorized [id number] Closed PCP Requested Referral 05/16/2022 08/14/2022 1 [...] Will Yes June 10 5:52pm Power of Cord Cutter Yes June 10, 2019 5:52pm Advance Directive [...] or prosecute any alcohol or drug abuse patient.[facility] System[facility] the event this information is protected by the Federal Confidentiality of Alcohol and Drug Abuse Patient Records regulations: The Federal rules restrict any use of the information to criminally investigate or prosecute any alcohol or drug abuse patient.[facility] SystemIn the event this information is protected by the Federal Confidentiality of Alcohol and Drug Abuse Patient Records regulations: The Federal rules restrict any use of the information to criminally investigate or prosecute any alcohol or drug abuse patient.[facility] SystemIn the event this information is protected by the Federal Confidentiality of Alcohol and Drug Abuse Patient Records regulations: The Federal rules restrict any use of the information to criminally investigate or prosecute any alcohol or drug abuse patient.[facility] SystemIn the event this information is protected by the Federal Confidentiality of Alcohol and Drug Abuse Patient Records regulations: The Federal rules restrict any use of the information to criminally investigate or prosecute any alcohol or drug abuse patient.[facility] SystemIn the event this information is protected by the Federal Confidentiality of Alcohol and Drug Abuse Patient Records regulations: The Federal rules restrict any use of the information to criminally investigate or prosecute any alcohol or drug abuse patient.[facility] SystemIn the event this information is protected by the Federal Confidentiality of Alcohol and Drug Abuse Patient Records regulations: The Federal rules restrict any use of the information to criminally investigate or prosecute any alcohol or drug abuse patient.[facility] SystemIn the event this information is protected by the Federal Confidentiality of Alcohol and Drug Abuse Patient Records regulations: The Federal rules restrict any use of the information to criminally investigate or prosecute any alcohol or drug abuse patient.[facility] SystemIn the event this information is protected by the Federal Confidentiality of Alcohol and Drug Abuse Patient Records regulations: The Federal rules restrict any use of the information to criminally investigate or prosecute any alcohol or drug abuse patient.[facility] SystemIn the event this information is protected by the Federal Confidentiality of Alcohol and Drug Abuse Patient Records regulations: The Federal rules restrict any use of the information to criminally investigate or prosecute any alcohol or drug abuse patient.[facility] SystemIn the event this information is protected by the Federal Confidentiality of Alcohol and Drug Abuse Patient Records regulations: The Federal rules restrict any use of the information to criminally investigate or prosecute any alcohol or drug abuse patient.[facility] SystemIn the event this information is protected by the Federal Confidentiality of Alcohol and Drug Abuse Patient Records regulations: The Federal rules restrict any use of the information to criminally investigate or prosecute any alcohol or drug abuse patient.[facility] SystemIn the event this information is protected by the Federal Confidentiality of Alcohol and Drug Abuse Patient Records regulations: The Federal rules restrict any use of the information to criminally investigate or prosecute any alcohol or drug abuse patient.[facility] SystemIn the event this information is protected by the Federal Confidentiality of Alcohol and Drug Abuse Patient Records regulations: The Federal rules restrict any use of the information to criminally investigate or prosecute any alcohol or drug abuse patient.[facility] SystemIn the event this information is protected by the Federal Confidentiality of Alcohol and Drug Abuse Patient Records regulations: The Federal rules restrict any use of the information to criminally investigate or prosecute any alcohol or drug abuse patient.[facility] SystemIn the event this information is protected by the Federal Confidentiality of Alcohol and Drug Abuse Patient Records regulations: The Federal rules restrict any use of the information to criminally investigate or prosecute any alcohol or drug abuse patient.[facility] SystemIn the event this information is protected by the Federal Confidentiality of Alcohol and Drug Abuse Patient Records regulations: The Federal rules restrict any use of the information to criminally investigate or prosecute any alcohol or drug abuse patient.[facility] SystemIn the event this information is protected by the Federal Confidentiality of Alcohol and Drug Abuse Patient Records regulations: The Federal rules restrict any use of the information to criminally investigate or prosecute any alcohol or drug abuse patient.[facility] SystemIn the event this information is protected by the Federal Confidentiality of Alcohol and Drug Abuse Patient Records regulations: The Federal rules restrict any use of the information to criminally investigate or prosecute any alcohol or drug abuse patient.[facility] SystemIn the event this information is protected by the Federal Confidentiality of Alcohol and Drug Abuse Patient Records regulations: The Federal rules restrict any use of the information to criminally investigate or prosecute any alcohol or drug abuse patient.[facility] SystemIn the event this information is protected by the Federal Confidentiality of Alcohol and Drug Abuse Patient Records regulations: The Federal rules restrict any use of the information to criminally investigate or prosecute any alcohol or drug abuse patient.[facility] SystemIn the event this information is protected by the Federal Confidentiality of Alcohol and Drug Abuse Patient Records regulations: The Federal rules restrict any use of the information to criminally investigate or prosecute any alcohol or drug abuse patient.[facility] SystemIn the event this information is protected by the Federal Confidentiality of Alcohol and Drug Abuse Patient Records regulations: The Federal rules restrict any use of the information to criminally investigate or prosecute any alcohol or drug abuse patient.[facility] SystemIn the event this information is protected by the Federal Confidentiality of Alcohol and Drug Abuse Patient Records regulations: The Federal rules restrict any use of the information to criminally investigate or prosecute any alcohol or drug abuse patient.[facility] SystemIn the event this information is protected by the Federal Confidentiality of Alcohol and Drug Abuse Patient Records regulations: The Federal rules restrict any use of the information to criminally investigate or prosecute any alcohol or drug abuse patient.[facility] SystemIn the event this information is protected by the Federal Confidentiality of Alcohol and Drug Abuse Patient Records regulations: The Federal rules restrict any use of the information to criminally investigate or prosecute any alcohol or drug abuse patient.[facility] SystemIn the event this information is protected by the Federal Confidentiality of Alcohol and Drug Abuse Patient Records regulations: The Federal rules restrict any use of the information to criminally investigate or prosecute any alcohol or drug abuse patient.[facility] SystemIn the event this information is protected by the Federal Confidentiality of Alcohol and Drug Abuse Patient Records regulations: The Federal rules restrict any use of the information to criminally investigate or prosecute any alcohol or drug abuse patient.[facility] SystemIn the event this information is protected by the Federal Confidentiality of Alcohol and Drug Abuse Patient Records regulations: The Federal rules restrict any use of the information to criminally investigate or prosecute any alcohol or drug abuse patient.[facility] SystemIn the event this information is protected by the Federal Confidentiality of Alcohol and Drug Abuse Patient Records regulations: The Federal rules restrict any use of the information to criminally investigate or prosecute any alcohol or drug abuse patient.[facility] SystemIn the event this information is protected by the Federal Confidentiality of Alcohol and Drug Abuse Patient Records regulations: The Federal rules restrict any use of the information to criminally investigate or prosecute any alcohol or drug abuse patient.[facility] SystemIn the event this information is protected by the Federal Confidentiality of Alcohol and Drug Abuse Patient Records regulations: The Federal rules restrict any use of the information to criminally investigate or prosecute any alcohol or drug abuse patient.[facility] SystemIn the event this information is protected by the Federal Confidentiality of Alcohol and Drug Abuse Patient Records regulations: The Federal rules restrict any use of the information to criminally investigate or prosecute any alcohol or drug abuse patient.[facility] SystemIn the event this information is protected by the Federal Confidentiality of Alcohol and Drug Abuse Patient Records regulations: The Federal rules restrict any use of the information to criminally investigate or prosecute any alcohol or drug abuse patient.[facility] SystemIn the event this information is protected by the Federal Confidentiality of Alcohol and Drug Abuse Patient Records regulations: The Federal rules restrict any use of the information to criminally investigate or prosecute any alcohol or drug abuse patient.[facility] SystemIn the event this information is protected by the Federal Confidentiality of Alcohol and Drug Abuse Patient Records regulations: The Federal rules restrict any use of the information to criminally investigate or prosecute any alcohol or drug abuse patient.[facility] SystemIn the event this information is protected by the Federal Confidentiality of Alcohol and Drug Abuse Patient Records regulations: The Federal rules restrict any use of the information to criminally investigate or prosecute any alcohol or drug abuse patient.[facility] SystemIn the event this information is protected by the Federal Confidentiality of Alcohol and Drug Abuse Patient Records regulations: The Federal rules restrict any use of the information to criminally investigate or prosecute any alcohol or drug abuse patient.[facility] SystemIn the event this information is protected by the Federal Confidentiality of Alcohol and Drug Abuse Patient Records regulations: The Federal rules restrict any use of the information to criminally investigate or prosecute any alcohol or drug abuse patient.[facility] SystemIn the event this information is protected by the Federal Confidentiality of Alcohol and Drug Abuse Patient Records regulations: The Federal rules restrict any use of the information to criminally investigate or prosecute any alcohol or drug abuse patient.[facility] SystemIn the event this information is protected by the Federal Confidentiality of Alcohol and Drug Abuse Patient Records regulations: The Federal rules restrict any use of the information to criminally investigate or prosecute any alcohol or drug abuse patient.[facility] SystemIn the event this information is protected by the Federal Confidentiality of Alcohol and Drug Abuse Patient Records regulations: The Federal rules restrict any use of the information to criminally investigate or prosecute any alcohol or drug abuse patient.[facility] SystemIn the event this information is protected by the Federal Confidentiality of Alcohol and Drug Abuse Patient Records regulations: The Federal rules restrict any use of the information to criminally investigate or prosecute any alcohol or drug abuse patient.[facility] SystemIn the event this information is protected by the Federal Confidentiality of Alcohol and Drug Abuse Patient Records regulations: The Federal rules restrict any use of the information to criminally investigate or prosecute any alcohol or drug abuse patient.[facility] SystemIn the event this information is protected by the Federal Confidentiality of Alcohol and Drug Abuse Patient Records regulations: The Federal rules restrict any use of the information to criminally investigate or prosecute any alcohol or drug abuse patient.[facility] SystemIn the event this information is protected by the Federal Confidentiality of Alcohol and Drug Abuse Patient Records regulations: The Federal rules restrict any use of the information to criminally investigate or prosecute any alcohol or drug abuse patient.[facility] SystemIn the event this information is protected by the Federal Confidentiality of Alcohol and Drug Abuse Patient Records regulations: The Federal rules restrict any use of the information to criminally investigate or prosecute any alcohol or drug abuse patient.[facility] SystemIn the event this information is protected by the Federal Confidentiality of Alcohol and Drug Abuse Patient Records regulations: The Federal rules restrict any use of the information to criminally investigate or prosecute any alcohol or drug abuse patient.[facility] SystemIn the event this information is protected by the Federal Confidentiality of Alcohol and Drug Abuse Patient Records regulations: The Federal rules restrict any use of the information to criminally investigate or prosecute any alcohol or drug abuse patient.[facility] SystemIn the event this information is protected by the Federal Confidentiality of Alcohol and Drug Abuse Patient Records regulations: The Federal rules restrict any use of the information to criminally investigate or prosecute any alcohol or drug abuse patient.[facility] SystemIn the event this information is protected by the Federal Confidentiality of Alcohol and Drug Abuse Patient Records regulations: The Federal rules restrict any use of the information to criminally investigate or prosecute any alcohol or drug abuse patient.[facility] SystemIn the event this information is protected by the Federal Confidentiality of Alcohol and Drug Abuse Patient Records regulations: The Federal rules restrict any use of the information to criminally investigate or prosecute any alcohol or drug abuse patient.[facility] SystemIn the event this information is protected by the Federal Confidentiality of Alcohol and Drug Abuse Patient Records regulations: The Federal rules restrict any use of the information to criminally investigate or prosecute any alcohol or drug abuse patient.[facility] SystemIn the event this information is protected by the Federal Confidentiality of Alcohol and Drug Abuse Patient Records regulations: The Federal rules restrict any use of the information to criminally investigate or prosecute any alcohol or drug abuse patient.[facility] SystemIn the event this information is protected by the Federal Confidentiality of Alcohol and Drug Abuse Patient Records regulations: The Federal rules restrict any use of the information to criminally investigate or prosecute any alcohol or drug abuse patient.[facility] SystemIn the event this information is protected by the Federal Confidentiality of Alcohol and Drug Abuse Patient Records regulations: The Federal rules restrict any use of the information to criminally investigate or prosecute any alcohol or drug abuse patient.[facility] SystemIn the event this information is protected by the Federal Confidentiality of Alcohol and Drug Abuse Patient Records regulations: The Federal rules restrict any use of the information to criminally investigate or prosecute any alcohol or drug abuse patient.[facility] SystemIn the event this information is protected by the Federal Confidentiality of Alcohol and Drug Abuse Patient Records regulations: The Federal rules restrict any use of the information to criminally investigate or prosecute any alcohol or drug abuse patient.[facility] SystemIn the event this information is protected by the Federal Confidentiality of Alcohol and Drug Abuse Patient Records regulations: The Federal rules restrict any use of the information to criminally investigate or prosecute any alcohol or drug abuse patient.[facility] SystemIn the event this information is protected by the Federal Confidentiality of Alcohol and Drug Abuse Patient Records regulations: The Federal rules restrict any use of the information to criminally investigate or prosecute any alcohol or drug abuse patient.[facility] SystemIn the event this information is protected by the Federal Confidentiality of Alcohol and Drug Abuse Patient Records regulations: The Federal rules restrict any use of the information to criminally investigate or prosecute any alcohol or drug abuse patient.[facility] SystemIn the event this information is protected by the Federal Confidentiality of Alcohol and Drug Abuse Patient Records regulations: The Federal rules restrict any use of the information to criminally investigate or prosecute any alcohol or drug abuse patient.[facility] SystemIn the event this information is protected by the Federal Confidentiality of Alcohol and Drug Abuse Patient Records regulations: The Federal rules restrict any use of the information to criminally investigate or prosecute any alcohol or drug abuse patient.[facility] SystemIn the event this information is protected by the Federal Confidentiality of Alcohol and Drug Abuse Patient Records regulations: The Federal rules restrict any use of the information to criminally investigate or prosecute any alcohol or drug abuse patient.[facility] SystemIn the event this information is protected by the Federal Confidentiality of Alcohol and Drug Abuse Patient Records regulations: The Federal rules restrict any use of the information to criminally investigate or prosecute any alcohol or drug abuse patient.[facility] SystemIn the event this information is protected by the Federal Confidentiality of Alcohol and Drug Abuse Patient Records regulations: The Federal rules restrict any use of the information to criminally investigate or prosecute any alcohol or drug abuse patient.[facility] SystemIn the event this information is protected by the Federal Confidentiality of Alcohol and Drug Abuse Patient Records regulations: The Federal rules restrict any use of the information to criminally investigate or prosecute any alcohol or drug abuse patient.[facility] SystemIn the event this information is protected by the Federal Confidentiality of Alcohol and Drug Abuse Patient Records regulations: The Federal rules restrict any use of the information to criminally investigate or prosecute any alcohol or drug abuse patient.[facility] SystemIn the event this information is protected by the Federal Confidentiality of Alcohol and Drug Abuse Patient Records regulations: The Federal rules restrict any use of the information to criminally investigate or prosecute any alcohol or drug abuse patient.[facility] SystemIn the event this information is protected by the Federal Confidentiality of Alcohol and Drug Abuse Patient Records regulations: The Federal rules restrict any use of the information to criminally investigate or prosecute any alcohol or drug abuse patient.[facility] SystemIn the event this information is protected by the Federal Confidentiality of Alcohol and Drug Abuse Patient Records regulations: The Federal rules restrict any use of the information to criminally investigate or prosecute any alcohol or drug abuse patient.[facility] SystemIn the event this information is protected by the Federal Confidentiality of Alcohol and Drug Abuse Patient Records regulations: The Federal rules restrict any use of the information to criminally investigate or prosecute any alcohol or drug abuse patient.[facility] SystemIn the event this information is protected by the Federal Confidentiality of Alcohol and Drug Abuse Patient Records regulations: The Federal rules restrict any use of the information to criminally investigate or prosecute any alcohol or drug abuse patient.[facility] SystemIn the event this information is protected by the Federal Confidentiality of Alcohol and Drug Abuse Patient Records regulations: The Federal rules restrict any use of the information to criminally investigate or prosecute any alcohol or drug abuse patient.[facility] SystemIn the event this information is protected by the Federal Confidentiality of Alcohol and Drug Abuse Patient Records regulations: The Federal rules restrict any use of the information to criminally investigate or prosecute any alcohol or drug abuse patient.[facility] SystemIn the event this information is protected by the Federal Confidentiality of Alcohol and Drug Abuse Patient Records regulations: The Federal rules restrict any use of the information to criminally investigate or prosecute any alcohol or drug abuse patient.[facility] SystemIn the event this information is protected by the Federal Confidentiality of Alcohol and Drug Abuse Patient Records regulations: The Federal rules restrict any use of the information to criminally investigate or prosecute any alcohol or drug abuse patient.[facility] SystemIn the event this information is protected by the Federal Confidentiality of Alcohol and Drug Abuse Patient Records regulations: The Federal rules restrict any use of the information to criminally investigate or prosecute any alcohol or drug abuse patient.[facility] SystemIn the event this information is protected by the Federal Confidentiality of Alcohol and Drug Abuse Patient Records regulations: The Federal rules restrict any use of the information to criminally investigate or prosecute any alcohol or drug abuse patient.[facility] SystemIn the event this information is protected by the Federal Confidentiality of Alcohol and Drug Abuse Patient Records regulations: The Federal rules restrict any use of the information to criminally investigate or prosecute any alcohol or drug abuse patient.[facility] SystemIn the event this information is protected by the Federal Confidentiality of Alcohol and Drug Abuse Patient Records regulations: The Federal rules restrict any use of the information to criminally investigate or prosecute any alcohol or drug abuse patient.[facility] SystemIn the event this information is protected by the Federal Confidentiality of Alcohol and Drug Abuse Patient Records regulations: The Federal rules restrict any use of the information to criminally investigate or prosecute any alcohol or drug abuse patient.[facility] SystemIn the event this information is protected by the Federal Confidentiality of Alcohol and Drug Abuse Patient Records regulations: The Federal rules restrict any use of the information to criminally investigate or prosecute any alcohol or drug abuse patient.[facility] SystemIn the event this information is protected by the Federal Confidentiality of Alcohol and Drug Abuse Patient Records regulations: The Federal rules restrict any use of the information to criminally investigate or prosecute any alcohol or drug abuse patient.[facility] SystemIn the event this information is protected by the Federal Confidentiality of Alcohol and Drug Abuse Patient Records regulations: The Federal rules restrict any use of the information to criminally investigate or prosecute any alcohol or drug abuse patient.[facility] SystemIn the event this information is protected by the Federal Confidentiality of Alcohol and Drug Abuse Patient Records regulations: The Federal rules restrict any use of the information to criminally investigate or prosecute any alcohol or drug abuse patient.[facility] SystemIn the event this information is protected by the Federal Confidentiality of Alcohol and Drug Abuse Patient Records regulations: The Federal rules restrict any use of the information to criminally investigate or prosecute any alcohol or drug abuse patient.[facility] SystemIn the event this information is protected by the Federal Confidentiality of Alcohol and Drug Abuse Patient Records regulations: The Federal rules restrict any use of the information to criminally investigate or prosecute any alcohol or drug abuse patient.[facility] SystemIn the event this information is protected by the Federal Confidentiality of Alcohol and Drug Abuse Patient Records regulations: The Federal rules restrict any use of the information to criminally investigate or prosecute any alcohol or drug abuse patient.[facility] SystemIn the event this information is protected by the Federal Confidentiality of Alcohol and Drug Abuse Patient Records regulations: The Federal rules restrict any use of the information to criminally investigate or prosecute any alcohol or drug abuse patient.[facility] SystemIn the event this information is protected by the Federal Confidentiality of Alcohol and Drug Abuse Patient Records regulations: The Federal rules restrict any use of the information to criminally investigate or prosecute any alcohol or drug abuse patient.[facility] SystemIn the event this information is protected by the Federal Confidentiality of Alcohol and Drug Abuse Patient Records regulations: The Federal rules restrict any use of the information to criminally investigate or prosecute any alcohol or drug abuse patient.[facility] SystemIn the event this information is protected by the Federal Confidentiality of Alcohol and Drug Abuse Patient Records regulations: The Federal rules restrict any use of the information to criminally investigate or prosecute any alcohol or drug abuse patient.[facility] SystemIn the event this information is protected by the Federal Confidentiality of Alcohol and Drug Abuse Patient Records regulations: The Federal rules restrict any use of the information to criminally investigate or prosecute any alcohol or drug abuse patient.[facility] SystemIn the event this information is protected by the Federal Confidentiality of Alcohol and Drug Abuse Patient Records regulations: The Federal rules restrict any use of the information to criminally investigate or prosecute any alcohol or drug abuse patient.[facility] SystemIn the event this information is protected by the Federal Confidentiality of Alcohol and Drug Abuse Patient Records regulations: The Federal rules restrict any use of the information to criminally investigate or prosecute any alcohol or drug abuse patient.[facility] SystemIn the event this information is protected by the Federal Confidentiality of Alcohol and Drug Abuse Patient Records regulations: The Federal rules restrict any use of the information to criminally investigate or prosecute any alcohol or drug abuse patient.[facility] SystemIn the event this information is protected by the Federal Confidentiality of Alcohol and Drug Abuse Patient Records regulations: The Federal rules restrict any use of the information to criminally investigate or prosecute any alcohol or drug abuse patient.[facility] Reason for Visit (unrecogniz ed section and [...] with + COVI D exposure spouse at [facility] Sunday 06/25 Reason Onset Date Comments [...] Navigation Outreach 07/10/2024 Healthy at Home - [facility] Reason Comments Medicare Wellness Exam Reason Comments Medication Problem cost of Eliquis Reason Onset Date Comments Results 09/12/2024 Reason Onset Date Comments Refill Request 09/18/2024 Reason Comments Medication Request Reason Onset Date Comments Refill Request 11/05/2024 Reason Onset Date Comments Population Health Navigation Outreach 12/17/2024 [facility] Care Teams (unrecognized sec tion and content) Acetone Button Paster Relationship Specialty Start Date End Date Vini Sparks DO [address] [place] [address] PCP - General Family Practice 08/24/16 Acetone Button Paster Relationship Specialty Start Date End Date Vini Sparks DO [address] [place] [address] PCP - General Family Practice 08/24/16 Acetone Button Paster Relationship Specialty Start Date End Date Vini Sparks DO [address] [place] [address] PCP - General Family Practice 08/24/16 Acetone Button Paster Relationship Specialty Start Date End Date Vini Sparks, DO [address] [place] [address] PCP - General Family Practice 08/24/16 Acetone Button Paster Relationship Specialty Start Date End Date Vini Sparks, DO [address] [place] [address] PCP - General Family Practice 08/24/16 Acetone Button Paster Relationship Specialty Start Date End Date Vini Sparks, DO [address] [place] [address] PCP - General Family Practice 08/24/16 Acetone Button Paster Relationship Specialty Start Date End Date Vini Sparks, DO [address] [place] [address] PCP - General Family Practice 08/24/16 Acetone Button Paster Relationship Specialty Start Date End Date Vini Sparks, DO [address] [place] [address] PCP - General Family Practice 08/24/16 Acetone Button Paster Relationship Specialty Start Date End Date Vini Sparks, DO [address] [place] [address] PCP - General Family Practice 08/24/16 Acetone Button Paster Relationship Specialty Start Date End Date Vini Sparks, DO [address] [place] [address] PCP - General Family Practice 08/24/16 Acetone Button Paster Relationship Specialty Start Date End Date Vini Sparks, DO [address] [place] [address] PCP - General Family Medicine 08/24/16 Acetone Button Paster Relationship Specialty Start Date End Date Vini Sparks, DO [address] [place] [address] PCP - General Family Medicine 08/24/16 Acetone Button Paster Relationship Specialty Start Date End Date Vini Sparks, DO [address] [place] [address] PCP - General Family Medicine 08/24/16 Acetone Button Paster Relationship Specialty Start Date End Date Vini Sparks, DO [address] [place] [address] PCP - General Family Medicine 08/24/16 Acetone Button Paster Relationship Specialty Start Date End Date Vini Sparks, DO [address] [place] [address] PCP - General Family Medicine 08/24/16 Acetone Button Paster Relationship Specialty Start Date End Date Vini Sparks, DO [address] [place] [address] PCP - General Family Medicine 08/24/16 Owen Lopez, RN [address] [place] [address] Tanning Drum Operator Internal Medicine 04/27/22 Acetone Button Paster Relationship Specialty Start Date End Date Vini Sparks, DO [address] [place] [address] PCP - General Family Medicine 08/24/16 Owen Lopez, RN [address] [place] [address] Tanning Drum Operator Internal Medicine 04/27/22 Acetone Button Paster Relationship Specialty Start Date End Date Vini Sparks, DO [address] [place] [address] PCP - General Family Medicine 08/24/16 Owen Lopez, RN [address] [place] [address] Tanning Drum Operator Internal Medicine 04/27/22 Acetone Button Paster Relationship Specialty Start Date End Date Vini Sparks, DO [address] [place] [address] PCP - General Family Medicine 08/24/16 Owen Lopez, RN [address] [place] [address] Tanning Drum Operator Internal Medicine 04/27/22 Acetone Button Paster Relationship Specialty Start Date End Date Vini Sparks, DO [address] [place] [address] PCP - General Family Medicine 08/24/16 Owen Lopez, RN [address] [place] [address] Tanning Drum Operator Internal Medicine 04/27/22 Acetone Button Paster Relationship Specialty Start Date End Date Vini Sparks, DO [address] [place] [address] PCP - General Family Medicine 08/24/16 Owen Lopez, RN [address] [place] [address] Tanning Drum Operator Internal Medicine 04/27/22 Acetone Button Paster Relationship Specialty Start Date End Date Vini Sparks, DO [address] [place] [address] PCP - General Family Medicine 08/24/16 Owen Lopez, RN [address] [place] [address] Tanning Drum Operator Internal Medicine 04/27/22 Acetone Button Paster Relationship Specialty Start Date End Date Vini Sparks, DO [address] [place] [address] PCP - General Family Medicine 08/24/16 Owen Lopez, RN [address] [place] [address] Tanning Drum Operator Internal Medicine 04/27/22 Acetone Button Paster Relationship Specialty Start Date End Date Vini Sparks, DO [address] [place] [address] PCP - General Family Medicine 08/24/16 Owen Lopez, RN [address] [place] [address] Tanning Drum Operator Internal Medicine 04/27/22 Acetone Button Paster Relationship Specialty Start Date End Date Vini Sparks, DO [address] [place] [address] PCP - General Family Medicine 08/24/16 Owen Lopez, RN [address] [place] [address] Tanning Drum Operator Internal Medicine 04/27/22 Acetone Button Paster Relationship Specialty Start Date End Date Vini Sparks, DO [address] [place] [address] PCP - General Family Medicine 08/24/16 Owen Lopez, RN [address] [place] [address] Tanning Drum Operator Internal Medicine 04/27/22 Acetone Button Paster Relationship Specialty Start Date End Date Vini Sparks, DO [address] [place] [address] PCP - General Family Medicine 08/24/16 Owen Lopez, RN [address] [place] [address] Tanning Drum Operator Internal Medicine 04/27/22 Acetone Button Paster Relationship Specialty Start Date End Date Vini Sparks DO [address] [place] [address] PCP - General Family Medicine 08/24/16 Owen Lopez, RN [address] [place] [address] Tanning Drum Operator Internal Medicine 04/27/22 Acetone Button Paster Relationship Specialty Start Date End Date Vini Sparks DO [address] [place] [address] PCP - General Family Medicine 08/24/16 Owen Lopez, RN [address] [place] [address] Tanning Drum Operator Internal Medicine 04/27/22 Acetone Button Paster Relationship Specialty Start Date End Date Vini Sparks DO [address] [place] [address] PCP - General Family Medicine 08/24/16 Owen Lopez, RN [address] [place] [address] Tanning Drum Operator Internal Medicine 04/27/22 Acetone Button Paster Relationship Specialty Start Date End Date Vini Sparks DO [address] [place] [address] PCP - General Family Medicine 08/24/16 Owen Lopez RN [address] [place] [address] Tanning Drum Operator Internal Medicine 04/27/22 Acetone Button Paster Relationship Specialty Start Date End Date Vini Sparks, [address] [place] [address] PCP - General Family Medicine 08/24/16 Owen Lopez, RN [address] [place] [address] Tanning Drum Operator Internal Medicine 04/27/22 Acetone Button Paster Relationship Specialty Start Date End Date Vini Sparks, [address] [place] [address] PCP - General Family Medicine 08/24/16 Owen Lopez, RN [address] [place] [address] Tanning Drum Operator Internal Medicine 04/27/22 Acetone Button Paster Relationship Specialty Start Date End Date Vini Sparks, [address] [place] [address] PCP - General Family Medicine 08/24/16 Owen Lopez, RN [address] [place] [address] Tanning Drum Operator Internal Medicine 04/27/22 Acetone Button Paster Relationship Specialty Start Date End Date Vini Sparks DO [address] [place] [address] PCP - General Family Medicine 08/24/16 Owen Lopez, RN [address] [place] [address] Tanning Drum Operator Internal Medicine 04/27/22 Acetone Button Paster Relationship Specialty Start Date End Date Vini Sparks DO [address] [place] [address] PCP - General Family Medicine 08/24/16 Owen Lopez, RN [address] [place] [address] Tanning Drum Operator Internal Medicine 04/27/22 Acetone Button Paster Relationship Specialty Start Date End Date Vini Sparks DO [address] [place] [address] PCP - General Family Medicine 08/24/16 Owen Lopez, RN [address] [place] [address] Tanning Drum Operator Internal Medicine 04/27/22 Acetone Button Paster Relationship Specialty Start Date End Date Vini Sparks, [address] [place] [address] PCP - General Family Medicine 08/24/16 Owen Lopez, RN [address] [place] [address] Tanning Drum Operator Internal Medicine 04/27/22 Acetone Button Paster Relationship Specialty Start Date End Date Vini Sparks DO [address] [place] [address] PCP - General Family Medicine 08/24/16 Owen Lopez, RN [address] [place] [address] Tanning Drum Operator Internal Medicine 04/27/22 Acetone Button Paster Relationship Specialty Start Date End Date Vini Sparks, [address] [place] [address] PCP - General Family Medicine 08/24/16 Owen Lopez, RN [address] [place] [address] Tanning Drum Operator Internal Medicine 04/27/22 Acetone Button Paster Relationship Specialty Start Date End Date Vini Sparks DO [address] [place] [address] PCP - General Family Medicine 08/24/16 Owen Lopez, RN [address] [place] [address] Tanning Drum Operator Internal Medicine 04/27/22 Acetone Button Paster Relationship Specialty Start Date End Date Vini Sparks, [address] [place] [address] PCP - General Family Medicine 08/24/16 Owen Lopez, RN [address] [place] [address] Tanning Drum Operator Internal Medicine 04/27/22 Acetone Button Paster Relationship Specialty Start Date End Date Vini Sparks, [address] [place] [address] PCP - General Family Medicine 08/24/16 Owen Lopez, RN [address] [place] [address] Tanning Drum Operator Internal Medicine 04/27/22 Acetone Button Paster Relationship Specialty Start Date End Date Vini Sparks, [address] [place] [address] PCP - General Family Medicine 08/24/16 Owen Lopez, RN [address] [place] [address] Tanning Drum Operator Internal Medicine 04/27/22 Acetone Button Paster Relationship Specialty Start Date End Date Vini Sparks DO [address] [place] [address] PCP - General Family Medicine 08/24/16 Owen Lopez, RN [address] [place] [address] Tanning Drum Operator Internal Medicine 04/27/22 Acetone Button Paster Relationship Specialty Start Date End Date Vini Sparks DO [address] [place] [address] PCP - General Family Medicine 08/24/16 Owen Lopez RN [address] [place] [address] Tanning Drum Operator Internal Medicine 04/27/22 Acetone Button Paster Relationship Specialty Start Date End Date Vini Sparks DO [address] [place] [address] PCP - General Family Medicine 08/24/16 Radha Jurado, [employer]DISTRICT MANAGER [address] [place] [address] Optical Engineering Manager Family Medicine 03/24/24 Acetone Button Paster Relationship Specialty Start Date End Date Vini Sparks DO [address] [place] [address] PCP - General Family Medicine 08/24/16 Radha Jurado, [employer].DISTRICT MANAGER [address] [place] [address] Optical Engineering Manager Family [facility] 03/24/24 Acetone Button Paster Relationship Specialty Start Date End Date Vini Sparks DO [address] [place] [address] PCP - General Family Medicine 08/24/16 Radha Jurado, [employer].DISTRICT MANAGER [address] [place] [address] Optical Engineering Manager Family [facility] 03/24/24 Acetone Button Paster Relationship Specialty Start Date End Date Vini Sparks DO [address] [place] [address] PCP - General Family Medicine 08/24/16 Radha Jurado, [employer].DISTRICT MANAGER [address] [place] [address] Optical Engineering Manager [facility] 03/24/24 Acetone Button Paster Relationship Specialty Start Date End Date Vini Sparks DO [address] [place] [address] PCP - General Family Medicine 08/24/16 Radha Jurado, [employer].DISTRICT MANAGER [address] [place] [address] [facility]24 Acetone Button Paster Relationship Specialty Start Date End Date Vini Sparks DO [address] [place] [address] PCP - General Family Medicine 08/24/16 Radha Jurado, [employer]DISTRICT MANAGER [address] [place] [address] [facility] 03/[facility]24 Acetone Button Paster Relationship Specialty Start Date End Date Vini Sparks DO [address] [place], [place] [id number] PCP - General Family Medicine 08/24/16 [facility]Ryanah, [employer].DISTRICT MANAGER [address] [place], [place] [address] [facility] 03/24/24 Team Status: Active Member Role/Relationship [...] October 15, 2024 End: October 15, 2024 Acetone Button Paster Relationship Specialty Start Date End Date Vini Sparks DO [address] [place], [place] [id number] PCP - General Family Medicine 08/24/16 [facility] Radha, [employer].DISTRICT MANAGER [address] [place] [address] [facility] 03/24/24 Marilyn Cummings, [employer]DISTRICT MANAGER [address] [place], [place] [id number] [facility] 09/30/24 Team Status: Inactive Member Role/Relationship Status Dates Dr. Vini Sparks DO Primary Care Provider Active Start: December 12, 2024 End: December 12, 2024 Dr. Vini Sparks DO Referring Provider Active Start: December 12, 2024 End: December 12, 2024 Sarah PEARCE, PA Attending Provider Active Start: December 12, 2024 End: December 12, 2024 Acetone Button Paster Relationship Specialty Start Date End Date Vini Sparks DO [address] [place] [address] PCP - General Family Medicine 08/24/16 Radha Jurado, [employer]DISTRICT MANAGER [address] [place] [address] Optical Engineering Manager Family Medicine 03/24/24 Marilyn Cummings, [employer]DISTRICT MANAGER [address] [place] [address] Optical Engineering Manager Family [facility] 09/30/24 Team Status: Active Member Role/Relationship Status [...] 12, 2024 End: December 12, 2024 Dr. Viin Sparks DO Referring Provider Active Start: December [...] content) DATE CREATED AUTHOR 01/19/2022 [facility] DATE CREATED AUTHOR AUTHOR'S ORGANIZ ATION 01/22/2025 [facility] DATE CREATED AUTHOR AUTHOR'S TIANA ATION 01/28/2025 [facility] FOR RECORDS PERTAINING TO PATIENTS WHO ARE [...] BE BASED ON THE PRIMARY CLINICAL RECORDS. [facility] [employer] [facility]. provides no warranty or guarantee of the accuracy or completeness of information in this document.
--- OUTSIDE RECORDS SUMMARY | 2025-01-30 22:22 | XMS RPT_ITS | CCD ---
Author Organization [facility] Care Team Providers Care Fender Mechanic Apprentice Name Role Phone Vini Sparks DO Primary Care Provider VINI SPARKS Primary Care Unavailable JUAN JAIMES Attending Unava ilable VINI SPARKS Primary Care Unavailable GLORIA BROWN Attending Unavaila ble Vini Sparks DO Primary Care Provider Vini Sparks DO Primary Care Provider Owen Lopez RN Unavailable Owen Lopez RN Unavailable Vini Sparks DO Primary Care Provider [facility] AGILE COACH.Radha MIJARES Unavailable Dr. Vini Sparks DO Primary Care Provider [phone] Dr. Vini Sparks DO Referring Provider Dr. Srinath Bustos MD Attending Provider [facility] AGILE COACH.Marilyn MIJARES Unavailable Sarah Charles Attending Provider Dr. [...] 4 Mental Status Change, Intolerance, GI Upset [facility] (1 source) Morphine Drug Allergy 5 [facility] Repository Medications Current Medications Medication Drug Class(es) [...] on above: Take 1 capsule by [facility] 8 hours as needed for cough [...] Range Facility Cardioversion Reporton 01-28 Cardioversion Report [facility] Cardi[facility] Services [address] [place] [address] MR#: [id number] Acct: [id number] Name: HARJIT BRADSHAW Rep #: [id number] : 1940 84 From: Srinath Bustos MD Primary Care: Dr. Vini Sparks, DO Status: [facility] Referring Dr: Srinath Bustos MD Sex: F C Cardioversion Cardioversion: The patient was brought to the [facility] recovery area in the fasting state. She [...] patient will be recovered in the cardiac [facility] recovery unit and discharged to home. The patient has an appointment for follow-up ECG in 1 week in the [place] [facility] office. The patient will be continued on amiodarone 200 mg daily will reevaluate long-term management at 4 to 6 weeks when she is reevaluated in the office. Procedures Coronary Therapeutic CF Procedures 92xxx-93xxx: 74113 Cardioversion electric ext 01/28/25 1233 Date Srinath Bustos MD CC: Dr. Vini Sparks, DO; Dr. Srinath Bustos MD Date Dictated: 01/28/251228 Date Transcribed: 01/28/251228 Manager Intensive Care Unit: Signed [facility] Procedure Reporton Procedure Report [facility] Medical Records Department [address] [place] [address] Procedure Report 01/28/25 1237 MR#: [id number] Acct: [id number] Name: HARJIT BRADSHAW Rep #: [id number] : 1940 84 From: Sarath Trivedi DO PCP: Dr. Vini Sparks DO Status:[facility] Location: [facility] Procedures Pulmonary Pulmonary Procedures /Diagnostic Testin Con Sedation Bedside Procedural Bedside Procedure Information Date of Procedure: 01/28/25 Description of procedure: CONSCIOUS SEDATION REPORT DATE OF SERVICE: January 28, 2025 BRIEF HISTORY OF PRESENT ILLNESS: The patient is an 84-year-old female who presented to [facility] to undergo an elective outpatient cardioversion due [...] DO; Dr. Srinath Bustos MD Signed [facility] CNOVSPon 01-20-2025 CNOVSP Visit (SP) Office (HEMAWS) HARJIT BRADSHAW ([id number]) 1940 F Date Time Provider Department 01/20/25 [...] volume. 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 APRN.CONSULAR OFFICER Referring Provider: ELISSA NEGRO [[id number]] Allergies As of Date: 01/20/2025 Noted Allergy Reaction MORPHINE 03/03/2014 1 - Mental Status Change 5 - Intolerance 8 - GI Upset Date Reviewed: 01/20/2025 Reviewed by: 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 APRN.CONSULAR OFFICER - Fully Assessed Reason for Visit: Established Patient [175] Primary Visit Diagnosis:Encounter for follow-up surveillance of breast cancer [Z08, Z85.3] Other Visit Diagnoses: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 in female, estrogen receptor positive (HCC) [C50.112, Z17.0] Encounter for screening mammogram for high-risk patient [Z12.31] Order(s):[facility] SCREENING W ORACIO [[id number]] Order #: [id number] FUTURE Follow-up and Disposition History for Encounter Date Provider Department Center 01/20/20[facility] [id number] Prescriptions as of 01/20/2025 - a (more content not included)... Normal [facility] Anion gap in Serum or Plasma Ordered By: Srinath Bustos on 01-16-2025 Anion gap [Moles/Vol] 12 mmol/L 08-29 [facility] BUN/creatinine ratioOrdered By: Srinath Bustos on 01-16-2025 Urea nitrogen/Creatinine [Mass ratio] 17.4 mg/mg 02-03 [facility] Basic Metabolic Profile (BMP )on 01-16-2025 BUN/CRE 17.4 RATIO Normal 10-20 [facility] Comment on above: Performed By: #### L 500.2500, L501.9310, L100.0500, L501.9520 #### [facility] [address] [place], [address] Calcium [Mass/Vol] 9.3 mg/dL Normal 7.6-11.0 [facility] Comment on above: Performed By: #### L 500.2500, L501.9310, L100.0500, L501.9520 #### [facility] [address] [place], [address] Chloride [Moles/Vol] 103 mmol/L Normal 98-108 [facility] Comment on above: Performed By: #### L 500.2500, L501.9310, L100.0500, L501.9520 #### [facility] [address] [place], [address] CO2 [Moles/Vol] 23.4 mmol/L Normal 21.0-32.0 [facility] Comment on above: Performed By: #### L 500.2500, L501.9310, L100.0500, L501.9520 #### [facility] [address] [place], [address] Creatinine [Mass/Vol] 0.90 mg/dL Normal 0.70-1.20 [facility] Comment on above: Performed By: #### L 500.2500, L501.9310, L100.0500, L501.9520 #### [facility] [address] [place], [address] GAP 12 Normal 5-15 [facility] Comment on above: Performed By: #### L 500.2500, L501.9310, L100.0500, L501.9520 #### [facility] [address] [place], [address] GFR/1.73 sq M.predicted among non-blacks MDRD (S/P/Bld) [Vol rate/Area] 63 mL/min/{1.73_m2} Normal >60 [facility] Comment on above: Result Comment: mL/m in/1.73m2 CKD-EPI Creatinine Equation (2020) Performed By: #### L 500.2500, L501.9310, L100.0500, L501.9520 #### [facility] [address] [place], [address] Glucose [Mass/Vol] 101 mg/dL High 70-99 [facility] Comment on above: Performed By: #### L 500.2500, L501.9310, L100.0500, L501.9520 #### [facility] [address] [place], [address] Potassium [Moles/Vol] 4.7 mmol/L Normal 3.3-5.1 [facility] Comment on above: Performed By: #### L 500.2500, L501.9310, L100.0500, L501.9520 #### [facility] [address] [place], [address] Sodium [Moles/Vol] 139 mmol/L Normal 133-145 [facility] Comment on above: Performed By: #### L 500.2500, L501.9310, L100.0500, L501.9520 #### [facility] [address] [place], [address] Urea nitrogen [Mass/Vol] 16 mg/dL Normal 4-19 [facility] Comment on above: Performed By: #### L 500.2500, L501.9310, L100.0500, L501.9520 #### [facility] [address] [place], [address] CBC-Complete Blood Cnt No Di ffon 01-16-2025 Erythrocyte distribution width (RBC) [Ratio] 14.1 % Normal 11.6-14.6 [facility] Comment on above: Performed By: #### L 500.2500, L501.9310, L100.0500, L501.9520 #### [facility] [address] [place], [address] Hematocrit (Bld) [Volume fraction] 41.5 % Normal 37-47 [facility] Comment on above: Performed By: #### L 500.2500, L501.9310, L100.0500, L501.9520 #### [facility] [address] [place], [address] Hemoglobin (Bld) [Mass/Vol] 13.4 g/dL Normal 12.0-15.0 [facility] Comment on above: Performed By: #### L 500.2500, L501.9310, L100.0500, L501.9520 #### [facility] [address] [place], [address] MCH (RBC) [Entitic mass] 29.8 pg Normal 27.0-32.0 [facility] Comment on above: Performed By: #### L 500.2500, L501.9310, L100.0500, L501.9520 #### [facility] [address] [place], [address] MCHC (RBC) [Mass/Vol] 32.3 g/dL Normal 32-36 [facility] Comment on above: Performed By: #### L 500.2500, L501.9310, L100.0500, L501.9520 #### [facility] [address] [place], [address] MCV (RBC) [Entitic vol] 92.2 fL Normal 81-99 [facility] Comment on above: Performed By: #### L 500.2500, L501.9310, L100.0500, L501.9520 #### [facility] [address] [place], [address] Platelet mean volume (Bld) [Entitic vol] 10.8 fL Normal 6.2-12.0 [facility] Comment on above: Performed By: #### L 500.2500, L501.9310, L100.0500, L501.9520 #### [facility] [address] [place], [address] Platelets (Bld) [#/Vol] 296 10*3/uL Normal 150-450 [facility] Comment on above: Performed By: #### L 500.2500, L501.9310, L100.0500, L501.9520 #### [facility] [address] [place], [address] RBC (Bld) [#/Vol] 4.50 10*6/uL Normal 4.2-5.4 [facility] Comment on above: Performed By: #### L 500.2500, L501.9310, L100.0500, L501.9520 #### [facility] [address] [place], [address] RDW SD 47.7 fl High 35.1-43.9 [facility] Comment on above: Performed By: #### L 500.2500, L501.9310, L100.0500, L501.9520 #### [facility] [address] [place], [address] WBC (Bld) [#/Vol] 9.6 10*3/uL Normal 4.4-11.0 [facility] Comment on above: Performed By: #### L 500.2500, L501.9310, L100.0500, L501.9520 #### [facility] [address] [place], [address] Carbon dioxide, total [Moles /volume] in Central venous bloodOrdered By: Srinath Bustos on 01-16-2025 CO2 [Moles/Vol] 23.4 mmol/L 21.0-32.0 [facility] Cardiology Visit Reporton Cardiology Visit Report [facility] [address] [place] [address] OFFICE VISIT Date of Service: 01/16/25 MR#: [id number] Acct: [id number] Name: HARJIT BRADSHAW Rep #: [id number] : 1940 Provider: Dr. Srinath styles MD Age/Sex: 84/F Location[facility] Status: Signed HPI HPI History of Present [...] 1+ TR. This was done at the [facility]. The patient also had a stress [...] air Intake Visit Reasons: 6 W FU Options Trader Required: No Accompanied by: Is patient in [...] Head: n (more content not included)... [facility] Chloride assayOrdered By: Ariadna Bustos on 01-16-2025 Chloride [Moles/Vol] 103 mmol/L 98-108 [facility] Erythrocyte distribution wid th ratioOrdered By: Srinath Bustos on 01-16-2025 Erythrocyte distribution width (RBC) [Ratio] 14.1 % 11.6-14.6 [facility] Erythrocyte distribution wid th standard deviationOrdered By: Srinath Bustos on 01-16-2025 Erythrocyte distribution width (RBC) [Ratio] 47.7 fl High 35.1-43.9 [facility] Glomerular filtration rate ( GFR) estimation/1.73 sq m using serum, plasma, or whole bOrdered By: Srinath Bustos on 01-16-2025 GFR/1.73 sq M.predicted among non-blacks MDRD (S/P/Bld) [Vol rate/Area] 63 mL/min/{1.73_m2} >60 [facility] Comment on above: mL/min/1.73m2 CKD-EP I Creatinine Equation (2020) Hematocrit Auto (Bld) [Volum e fraction]Ordered By: Srinath Bustos on 01-16-2025 Hematocrit (Bld) [Volume fraction] 41.5 % 37-47 [facility] Hemoglobin measurementOrdere d By: Srinath Bustos on 01-16-2025 Hemoglobin (Bld) [Mass/Vol] 13.4 g/dL 12.0-15.0 [facility] MCV (mean corpuscular volume ) determinationOrdered By: Srinath Bustos on 01-16-2025 MCV (RBC) [Entitic vol] 92.2 fL 81-99 [facility] Mean corpuscular hemoglobin (MCH) determinationOrdered By: Srinath Bustos on 01-16-2025 MCH (RBC) [Entitic mass] 29.8 pg 27.0-32.0 [facility] Mean corpuscular hemoglobin concentration (MCHC) determinationOrdered By: Srinath Bustos on 01-16-2025 MCHC (RBC) [Mass/Vol] 32.3 g/dL 32-36 [facility] Mean platelet volume determi nationOrdered By: Srinath Bustos on 01-16-2025 Platelet mean volume (Bld) [Entitic vol] 10.8 fL 6.2-12.0 [facility] Platelet countOrdered By: Ariadna Bustos on 01-16-2025 Platelets (Bld) [#/Vol] 296 10*3/uL 150-450 [facility] Potassium measurement (mass/ volume)Ordered By: Srinath Bustos on 01-16-2025 Potassium (Unsp spec) [Mass/Vol] 4.7 mmol/L 3.3-5.1 [facility] RBC Auto (Bld) [#/Vol]Ordere d By: Srinath Bustos on 01-16-2025 RBC (Bld) [#/Vol] 4.50 10*6/uL 4.2-5.4 [facility] Serum creatinine measurement (mass/volume)Ordered By: Srinath Bustos on 01-16-2025 Creatinine [Mass/Vol] 0.90 mg/dL 0.70-1.20 [facility] Serum glucose measurement (m ass/volume)Ordered By: Srinath Bustos on 01-16-2025 Glucose [Mass/Vol] 101 mg/dL High 70-99 [facility] Serum or plasma calcium bette urement (mass/volume)Ordered By: Srinath Bustos on 01-16-2025 Calcium [Mass/Vol] 9.3 mg/dL 7.6-11.0 [facility] Serum or plasma urea nitroge n measurement (mass/volume)Ordered By: Srinath Bustos on 01-16-2025 Urea nitrogen [Mass/Vol] 16 mg/dL 4-19 [facility] Sodium levelOrdered By: Angel Bustos on 01-16-2025 Sodium [Moles/Vol] 139 mmol/L 133-145 [facility] T4 Total, Thyroxinon 025 T4 [Mass/Vol] 7.0 ug/dL Normal 4.8-13.9 [facility] Comment on above: Performed By: #### L 500.2500, L501.9310, L100.0500, L501.9520 #### [facility] [address] [place], [address] TSH DL <= 0.005 mIU/L QnOrde red By: Srinath Bustos on 01-16-2025 TSH Qn 3.710 uIU/mL 0.300-4.200 [facility] Thyroid Stim Hormone (TSH)on 01-16-2025 TSH 3.710 uIU/mL Normal 0.300-4.200 [facility] Comment on above: Performed By: #### L 500.2500, L501.9310, L100.0500, L501.9520 #### [facility] [address] [facility] [place], [address] ThyroxineOrdered By: Srinath Bustos on 01-16-2025 T4 [Mass/Vol] 7.0 ug/dL 4.8-13.9 [facility] White blood cell (WBC) count Ordered By: Srinath Bustos on 01-16-2025 WBC (Bld) [#/Vol] 9.6 10*3/uL 4.4-11.0 [facility] Cardiovascular stress test r eportOrdered By: Dilip Can on 01-13-2025 Study report [facility] [address] [place] [address] MR#: [id number] Acct: [id number] Name: HARJIT BRADSHAW Rep #: [id number] : 1940 84 From: Dilip Can MD [...] ~ Date Dictated: 01/13/251846 Date Transcribed: 01/13/251846 Manager Intensive Care Unit: [place] Signed [facility] Work Phone: Stress Reporton 01-13-2025 Stress Report [facility] [address] [place] [address] MR#: [id number] Acct: [id number] Name: HARJIT BRADSHAW Senia Rep #: [id number] : 1940 84 From: Dilip Can MD [...] Bansal Date Dictated: 01/13/251846 Date Transcribed: 01/13/251846 Manager Intensive Care Unit: CO Signed [facility] AMBROSE SCREENING Rosana Lewis 01-10 AMBROSE SCREENING W ORACIO * * *Final Report* * * DATE OF EXAM: Jan 10 2025 11:05AM WRW 0582 - AMBROSE SCREENING W ORACIO / PROCEDURE REASON: multiple diagnoses * * * * Physician Interpretation * * * * RESULT: [address] [address] #[id number] - [facility] SCREENING W ORACIO HISTORY: 84 year-old patient [...] Silvia Story M.D. Electronically signed on: 01/11/2025 Manager Intensive Care Unit: HILDA Transcribe Date/Time: Jan 10 2025 10:50A Dictated by: SILVIA STORY MD This examination was interpreted and the report reviewed and electronically signed by: SILVIA STORY MD on Jan 11 2025 7:46AM EST [id number] Normal [facility] López 01-07-2025 [facility] HARJ[facility] BRADSHAW ([id number]) 1940 F Date Time Provider Department 01/07/25 [...] voices understanding. She states Sarah PEARCE from [facility] told her she needed to [...] rx from cardiology. Thank you, Ayseha Tran APRN.CONSULAR OFFICER Allergies As of Date: 01/07/2025 Noted Allergy [...] Sig: Take (more content not included)... Normal [facility] Cardiology Visit Reporton Cardiology Visit Report [facility] [address] [place], [place] [address]curly. [address] [place], [place] [address] OFFICE VISIT Date of Service: 12/12/24 MR#: [id number] Acct: [id number] Name: HARJIT BRADSHAW Senia Rep #: [id number] : 1940 Provider: RAMSES Da Silva Age/Sex: 84/F Location: [facility] Status: Signed HPI HPI History of Present [...] Visit Reasons: 2 WK FU/See Clinical Note Options Trader Required: No Accompanied by: Is patient in [...] is no (more content not included)... [facility] Cardiology Visit Reporton Cardiology Visit Report [facility] [address] [place] [address] OFFICE VISIT Date of Service: 10/15/24 MR#: [id number] Acct: [id number] Name: HARJIT BRADSHAW Rep #: [id number] : 1940 Provider: Dr. Srinath styles MD Age/Sex: 84/F Location: [facility] Status: Signed HPI HPI History of Present Illness Details: Patient is a very pleasant 84-year-old white female that comes in today with her who I actually took care of 25 years ago at [facility]. The patient is here for new patient [...] room air Intake Visit Reasons: AFIB (BRIDGER) Options Trader Required: No Accompanied by: Is patient in [...] to inspecti (more content not included)... [facility] US CAROTID ARTERIES [facility] LABon 10-10-2024 US CAROTID ARTERIES [facility] Non-Invasive Vascular Laboratory [facility] Carotid Duplex Bilateral/Complete Date of service/time: 10/10/2024 [...] physician: Juan Bernstein MD, LUDIVINA Final CC [facility] : [id number] amicsSISUID See Link below for Image Normal [facility] CNPElizabeth 09-26-2024 CNPN Telephone (FAMPWS) HARJIT BRADSHAW ([id number]) 1940 F Date Time Provider Department 09/26/24 [facility] During your visit today, we recorded the following information about you: Yaa Jordan RN 09/26/2024 3:30 PM Signed Patient states she was ordered Eliquis but it is too costly for her to continue. Asking for provider to order an alternative medication that will cost less. Please call patient with reply. SYLVIE Manjarrez Jordan L, DO 09/27/2024 8:37 AM Signed Has she seen the Wind Energy Engineer yet? This is needed DO Julian Díaz [...] to get her to this appt with Wind Energy Engineer? DO Arabella Díaz Susan LPN 09/27/2024 10:18 [...] Encounter Status:Closed by YAA JORDAN on 10/17/24 [facility] 09-17-2024 [facility] HARJIT BRADSHAW ([id number]) 1940 F Date Time Provider Department 09/17/24 VINI SPARKS [facility] During your visit today, we recorded [...] by RANDY AGUILERA LPN on 09/17/24 Normal [facility] ECHOon 09-16-2024 Echocardiography Echocardiography Report: Transthoracic Echo [facility] Date of service: 09/16/2024 1:00:21 PM OFFICER Ordering physician: VINI SPARKS Exam indication: Chest [...] * * Final * * * CC [facility] : [id number] amicsSISUID Normal [facility] POTASSIUMon 09-14-2024 Potassium [Moles/Vol] 5.0 mmol/L Normal 3.7-5.1 [facility] Comment on above: Order Comment: Speci men Type: BLOOD SPECIMEN Ordering Facility: [facility] Address: [address] [place] [address] Performed By: #### K 1 #### [facility] CLIA [id number] [address] [place], [place] [address] [address] [place] CNPNon 09-04-2024 CNPN Telephone (FAMPWS) HARJIT BRADSHAW ([id number]) 1940 F Date Time Provider Department 09/04/24 [facility] During your visit today, we recorded the following information about you: Quattrocchi, Purnima, [place] 09/04/2024 2:55 PM Signed Patient calling said pharmacy told her for a month of Eliquis is 460 dollars and she can not afford that. She said her is on the medication and has to pay that much for 90 days rx. Patient is asking if she could be put on something else that is cheaper? Patient uses [facility] for her pharmacy. Please advise Vini Sparks DO 09/07/2024 7:29 AM Signed Please call and clarify if she has seen the Wind Energy Engineer yet? 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 Vini Sparks DO 09/07/2024 11:17 AM Signed I need her to get an appt [facility], I don;t know if she is actually a candidate, until getting their opinion, to change to Warfarin instead of Eliquis DO Sade Díaz Jazzmin, MA 09/10/2024 10:49 AM Signed Pt needs to see cardiology [facility]! Please schedule LOULOU Semyour Stephanie 09/12/2024 8:52 AM Signed Spoke with patient and she does not want to leave [place] for her cardiology appointment. [facility] Please advise if provider is ok with patient going to [facility]. Ayesha Tran APRN.[place] 09/12/2024 1:16 PM Signed Ok with going with [facility]. Please assistance in scheduling/ provide her the number. Thank you, GODWIN Beth Stephanie 09/13/2024 3:45 PM Signed Order faxed to [facility] with the request that they reach out to the patient to schedule. Allergies As of Date: 09/04/2024 Noted Allergy Reaction MORPHINE 03/03/2014 1 - Mental Status Change 5 - Intolerance 8 - GI Upset Date Reviewed: 08/28/2024 Reviewed by: Liliana-Green, Randy [place] - Fully Assessed Reason for Visit: Medication [...] Status:Closed by AILIN ALANIS on 09/13/24 Normal [facility] Hemoccult Stl Ql IAon 2024 Lower GI hemoglobin IA Ql (Stl) Negative Normal Negative [facility] Comment on above: Order Comment: Speci men Type: STOOL SPECIMEN Ordering Facility: [facility] Address: [address] [place] [address] Performed By: #### 2 9771-3 #### [facility] CLIA [id number] [address] [place] [address] [place] 25(OH)D3 [facility] 2024 25-hydroxyvitamin D3 [Mass/Vol] 63.8 ng/mL Normal 31.0-80.0 [facility] Comment on above: Order Comment: Speci men Type: BLOOD SPECIMENOrdering Facility: [facility] Address: [address] [place] [address] Performed By: #### 1 989-3 ####[facility] [id number] [place] [address] [place] CBC panel Auto (Bld)on 05-15 -2025 Erythrocyte distribution width (RBC) [Ratio] 15.4 % High 11.5-15.0 [facility] Comment on above: Order Comment: Speci men Type: STOOL SPECIMEN Ordering Facility: [facility] Address: [address] [place] [address] Performed By: #### 2 9771-3 #### [facility] CLIA [id number] [address] [place] [address] [place] Hematocrit (Bld) [Volume fraction] 41.0 % Normal 36.0-46.0 [facility] Comment on above: Order Comment: Speci men Type: STOOL SPECIMEN Ordering Facility: [facility] Address: [address] [place] [address] Performed By: #### 2 9771-3 #### [facility] CLIA [id number] [address] [place] [address] [place] Hemoglobin (Bld) [Mass/Vol] 12.9 g/dL Normal 11.5-15.5 [facility] Comment on above: Order Comment: Speci men Type: STOOL SPECIMEN Ordering Facility: [facility] Address: [address] [place] [address] Performed By: #### 2 9771-3 #### [facility] CLIA [id number] [address] [place] [address] [place] MCH (RBC) [Entitic mass] 29.4 pg Normal 26.0-34.0 [facility] Comment on above: Order Comment: Speci men Type: STOOL SPECIMEN Ordering Facility: [facility] Address: [address] [place] [address] Performed By: #### 2 9771-3 #### [facility] CLIA [id number] [address] [place] [address] [place] MCHC (RBC) [Mass/Vol] 31.5 g/dL Normal 30.5-36.0 [facility] Comment on above: Order Comment: Speci men Type: STOOL SPECIMEN Ordering Facility: [facility] Address: [address] [place] [address] Performed By: #### 2 9771-3 #### [facility] CLIA [id number] [address] [place] [address] [place] MCV (RBC) [Entitic vol] 93.4 fL Normal 80.0-100.0 [facility] Comment on above: Order Comment: Speci men Type: STOOL SPECIMEN Ordering Facility: [facility] Address: [address] [place] [address] Performed By: #### 2 9771-3 #### [facility] CLIA [id number] [address] [place] [address] [place] Nucleated RBC (Bld) [#/Vol] 10*3/uL Normal <0.01 [facility] Comment on above: Order Comment: Speci men Type: STOOL SPECIMEN Ordering Facility: [facility] Address: [address] [place] [address] Performed By: #### 2 9771-3 #### [facility] CLIA [id number] [address] [place] [address] [place] Platelet mean volume (Bld) [Entitic vol] 11.5 fL Normal 9.0-12.7 [facility] Comment on above: Order Comment: Speci men Type: STOOL SPECIMEN Ordering Facility: [facility] Address: [address] [place] [address] Performed By: #### 2 9771-3 #### [facility] CLIA [id number] [address] [place] [address] [place] Platelets (Bld) [#/Vol] 268 10*3/uL Normal 150-400 [facility] Comment on above: Order Comment: Speci men Type: STOOL SPECIMEN Ordering Facility: [facility] Address: [address] [place] [address] Performed By: #### 2 9771-3 #### [facility] CLIA [id number] [address] [place] [address] [place] RBC (Bld) [#/Vol] 4.39 10*6/uL Normal 3.90-5.20 [facility] Comment on above: Order Comment: Speci men Type: STOOL SPECIMEN Ordering Facility: [facility] Address: [address] [place] [address] Performed By: #### 2 9771-3 #### [facility] CLIA [id number] [address] [place] [address] [place] WBC (Bld) [#/Vol] 9.35 10*3/uL Normal 3.70-11.00 [facility] Comment on above: Order Comment: Speci men Type: STOOL SPECIMEN Ordering Facility: [facility] Address: [address] [place] [address] Performed By: #### 2 9771-3 #### [facility] CLIA [id number] [address] [place] [address] [place] Comprehensive metabolic 2000 panelon 08-29-2024 Albumin [Mass/Vol] 4.5 g/dL Normal 3.9-4.9 [facility] Comment on above: Order Comment: Speci men Type: BLOOD SPECIMENOrdering Facility: [facility] Address: [address] [place] [address] Performed By: #### 3 016-3, 54781-3, 89158-6, 3024-7 ####[facility] [id number] [place] [address] [place] ALP [Catalytic activity/Vol] 119 U/L Normal 34-123 [facility] Comment on above: Order Comment: Speci men Type: BLOOD SPECIMENOrdering Facility: [facility] Address: [address] [place] [address] Performed By: #### 3 016-3, 37909-6, 38440-3, 3024-7 ####[facility] [id number] [address] [address] [place] ALT [Catalytic activity/Vol] 25 U/L Normal 7-38 [facility] Comment on above: Order Comment: Speci men Type: BLOOD SPECIMENOrdering Facility: [facility] Address: [address] [place] [address] Performed By: #### 3 016-3, 85316-1, 61810-3, 3023-7 ####[facility] [id number] [address] [address] [place] Anion gap [Moles/Vol] 14 mmol/L Normal 8-15 [facility] Comment on above: Order Comment: Speci men Type: BLOOD SPECIMENOrdering Facility: [facility] Address: [address] [place] [address] Performed By: #### 3 016-3, 24733-9, 95674-8, 3023-7 ####[facility] [id number] [place] [address] [place] AST [Catalytic activity/Vol] 31 U/L Normal 13-35 [facility] Comment on above: Order Comment: Speci men Type: BLOOD SPECIMENOrdering Facility: [facility] Address: [address] [place] [address] Performed By: #### 3 016-3, 82560-4, 42088-3, 3023-7 ####[facility] [id number] [address] [address] [place] Bilirubin [Mass/Vol] 0.5 mg/dL Normal 0.2-1.3 [facility] Comment on above: Order Comment: Speci men Type: BLOOD SPECIMENOrdering Facility: [facility] Address: [address] [place] [address] Performed By: #### 3 016-3, 59722-1, 02513-3, 302-7 ####[facility] [id number] [address] [address] [place] Calcium [Mass/Vol] 9.6 mg/dL Normal 8.5-10.2 [facility] Comment on above: Order Comment: Speci men Type: BLOOD SPECIMENOrdering Facility: [facility] Address: [address] [place] [address] Performed By: #### 3 016-3, 31761-9, 72435-7, 3023-7 ####[facility]IA [id number] [place] [address] [place] Chloride [Moles/Vol] 105 mmol/L Normal 98-107 [facility] Comment on above: Order Comment: Speci men Type: BLOOD SPECIMENOrdering Facility: [facility] Address: [address] [place] [address] Performed By: #### 3 016-3, 43460-3, 33136-6, 3027 ####[facility] [id number] [place] [address] [place] CO2 [Moles/Vol] 22 mmol/L Normal 22-30 [facility] Comment on above: Order Comment: Speci men Type: BLOOD SPECIMENOrdering Facility: [facility] Address: [address] [place] [address] Performed By: #### 3 016-3, 58626-4, 94207-3, 7 ####[facility]IA [id number] [address] [address] [place] Creatinine [Mass/Vol] 0.90 mg/dL Normal 0.58-0.96 [facility] Comment on above: Order Comment: Speci men Type: BLOOD SPECIMENOrdering Facility: [facility] Address: [address] [place] [address] Performed By: #### 3 016-3, 51583-9, 69620-2, 302-7 ####[facility]IA [id number] [address] [place] Creatinine and Glomerular filtration rate.predicted panel (S/P/Bld) 63 mL/min/1.73m??? Normal >=60 [facility] Comment on above: Order Comment: Marychuy andrew Type: BLOOD SPECIMENOrdering Facility: [facility] Address: [address] [place] [address] Result Comment: Halley mated Glomerular Filtration Rate [...] actual GFR. Performed By: #### 3 016-3, 66681-7, 46633-0, 3024-7 ####[facility]IA [id number] [place] [address] [place] Glucose [Mass/Vol] 95 mg/dL Normal 74-99 [facility] Comment on above: Order Comment: Marychuy andrew Type: BLOOD SPECIMENOrdering Facility: [facility] Address: [address] [place] [address] Result Comment: The [place] Diabetes Association (ADA) provides guidance for cutoff [...] Standards of Medical Care in Diabetes 2016, [place] Diabetes Association. Diabetes Care. 2016.39(Suppl 1). Performed By: #### 3 016-3, 95216-3, 62535-5, 3024-7 ####[facility]IA [id number] [address] [address] [place] Potassium [Moles/Vol] 5.5 mmol/L High 3.7-5.1 [facility] Comment on above: Order Comment: Speci men Type: BLOOD SPECIMENOrdering Facility: [facility] Address: [address] [place] [address] Performed By: #### 3 016-3, 08855-9, 60730-4, 3023-7 ####[facility]IA [id number] [facility] [address] [place] [address] [place] Protein [Mass/Vol] 7.4 g/dL Normal 6.3-8.0 [facility] Comment on above: Order Comment: Speci men Type: BLOOD SPECIMENOrdering Facility: [facility] Address: [address] [place] [address] Performed By: #### 3 016-3, 25632-3, 28341-2, 7 ####[facility]IA [id number] [facility] [address], [facility] [place] Sodium [Moles/Vol] 141 mmol/L Normal 136-144 [facility] Comment on above: Order Comment: Speci men Type: BLOOD SPECIMENOrdering Facility: [facility] Address: [address] [place] [address] Performed By: #### 3 016-3, 07029-9, 88116-7, 7 ####[facility]CLIA [id number] [facility] [address] [place] [address] [place] Urea nitrogen [Mass/Vol] 19 mg/dL Normal 7-21 [facility] Comment on above: Order Comment: Speci men Type: BLOOD SPECIMENOrdering Facility: [facility] Address: [address] [place] [address] Performed By: #### 3 016-3, 03825-2, 36211-6, 302-7 ####[facility]IA [id number] [facility] [address] [place] HbA1c (Bld)on 08-29-2024 Average glucose Estimated from glycated hemoglobin (Bld) [Mass/Vol] 120 mg/dL Normal [facility] Comment on above: Order Comment: Marychuy andrew Type: STOOL SPECIMEN Ordering Facility: [facility] Address: [address] [place] [address] Result Comment: eAG: (Estimated average glucose) is a calculated value from HgbA1c and is mortician supplies sales representative of the average blood glucose level in the last 2-3 month period. Performed By: #### 2 9771-3 #### [facility] CLIA [id number] [address] [place] [address] [place] HbA1c (Bld) [Mass fraction] 5.8 % High 4.3-5.6 [facility] Comment on above: Order Comment: Marychuy andrew Type: STOOL SPECIMEN Ordering Facility: [facility] Address: [address] [place] [address] Result Comment: Amer [place] Diabetes Association guidelines indicate that patients with HgbA1c in the range 5.7-6.4% are at increased risk for development of diabetes, and intervention by lifestyle modification may be beneficial. HgbA1c greater or equal to 6.5% is considered diagnostic of diabetes. Performed By: #### 2 9771-3 #### [facility] CLIA [id number] [address] [place] [address] [place] Lipid 1996 panelon 5 Cholesterol [Mass/Vol] 200 mg/dL High <200 [facility] Comment on above: Order Comment: Marychuy andrew Type: BLOOD SPECIMENOrdering Facility: [facility] Address: [address] [place] [address] Result Comment: <200 mg/dL, Desirable 200-239 mg/dL, Borderline high >239 mg/dL, High Performed By: #### 3 016-3, 46340-9, 65819-5, 3024-7 ####[facility]IA [id number] [place] [address] [place] Cholesterol in HDL [Mass/Vol] 89 mg/dL Normal >39 [facility] Comment on above: Order Comment: Elissai lorrie Type: BLOOD SPECIMENOrdering Facility: [facility] Address: [address] [place] [address] Result Comment: 40-5 9 mg/dL, Acceptable >59 mg/dL, High: Negative risk factor for coronary heart disease <40 mg/dL, Low: Positive risk factor for coronary heart disease Performed By: #### 3 016-3, 59739-6, 82509-8, 3024-7 ####[facility] [id number] [address] [address] [facility] Cholesterol in LDL [Mass/Vol] 89 mg/dL Normal <100 [facility] Comment on above: Order Comment: Marychuy lorrie Type: BLOOD SPECIMENOrdering Facility: [facility] Address: [address] [place] [address] Result Comment: <100 mg/dL, Optimal 100-129 mg/dL, Near optimal/above optimal 130-159 mg/dL, Borderline high 160-189 mg/dL, High >189 mg/dL, Very high Secondary prevention optimal LDL Cholesterol levels are recommended to be <70 mg/dL LDL cholesterol is calculated using the Butler-NIH equation. Performed By: #### 3 016-3, 42062-6, 53618-5, 3024-7 ####[facility] [id number] [place] [address] [facility] Cholesterol in LDL/Cholesterol in HDL [Mass ratio] 1.00 {ratio} Normal <2.54 [facility] Comment on above: Order Comment: Marychuy andrew Type: BLOOD SPECIMENOrdering Facility: [facility] Address: [address] [place] [address] Result Comment: [place]al [place]: 1. National Cholesterol Education Program ATP III Guideline At-A-Glance Quick Desk Reference: National Heart, Lung, and Blood Chamberlain. National Institutes of Health. 2001: NIH Publication No. 01-3305. 2. An International Atherosclerosis Society position paper: global recommendations for the management of dyslipidemia: executive summary, Atherosclerosis. 2014: 232(2):410-413. Performed By: #### 3 016-3, 56225-9, 17564-3, 7 ####[facility]CLIA [id number] [address] [address] [place] Cholesterol in VLDL [Mass/Vol] 21 mg/dL Normal <30 [facility] Comment on above: Order Comment: Speci men Type: BLOOD SPECIMENOrdering Facility: [facility] Address: [address] [place] [address] Performed By: #### 3 016-3, 05040-8, 85203-8, 3023-10 ####[facility] LABCLIA [id number] [place] [address] [place] Cholesterol non HDL [Mass/Vol] 111 mg/dL Normal <130 [facility] Comment on above: Order Comment: Speci men Type: BLOOD SPECIMENOrdering Facility: [facility] Address: [address] [place] [address] Result Comment: <130 mg/dL, Optimal 130-159 mg/dL, Near optimal/above optimal 160-189 mg/dL, Borderline high 190-219 mg/dL, High >219 mg/dL, Very high Secondary prevention optimal non HDL Cholesterol levels are recommended to be <100 mg/dL Performed By: #### 3 016-3, 81412-5, 88457-1, 7 ####[facility]CLIA [id number] [address] [place] [address] [place] Cholesterol.total/Choles terol in HDL [Mass ratio] 2.25 {ratio} Normal <5.10 [facility] Comment on above: Order Comment: Speci men Type: BLOOD SPECIMENOrdering Facility: [facility] Address: [address] [place] [address] Performed By: #### 3 016-3, 79646-6, 60143-3, 7 ####[facility]CLIA [id number] [address] [address] [place] FASTING TIME 12 hrs Normal [facility] Comment on above: Order Comment: Speci men Type: BLOOD SPECIMENOrdering Facility: [facility] Address: [address] [place] [address] Performed By: #### 3 016-3, 84476-2, 69458-5, 4-7 ####[facility]CLIA [id number] [place] [address] [place] Triglyceride [Mass/Vol] 131 mg/dL Normal <150 [facility] Comment on above: Order Comment: Speci men Type: BLOOD SPECIMENOrdering Facility: [facility] Address: [address] [place] [address] Result Comment: <150 mg/dL, Normal 150-199 mg/dL, Borderline high 200-499 mg/dL, High >499 mg/dL, Very high Performed By: #### 3 016-3, 28490-7, 96166-5, 3023-7 ####[facility]CLIA [id number] [place] [address] [place] T4 Free SerPl-mCncon 025 Free T4 [Mass/Vol] 1.4 ng/dL Normal 0.9-1.7 [facility] Comment on above: Order Comment: Speci men Type: BLOOD SPECIMENOrdering Facility: [facility] Address: [address] [place] [address] Performed By: #### 3 016-3, 68268-9, 03487-6, 3023-7 ####[facility]IA [id number] [place] [id number] [place] TSH SerPl-aCncon 08-29-2024 TSH Qn 1.370 m[IU]/L Normal 0.270-4.200 [facility] Comment on above: Order Comment: Speci men Type: BLOOD SPECIMENOrdering Facility: [facility] Address: [address] [place] [address] Performed By: #### 3 016-3, 16697-1, 40034-4, 3024-7 ####[facility]IA [id number] [place] [address] [place] Vit B12 Rosariol-Bobbincabigail 05-15-2 025 Cobalamin (Vitamin B12) [Mass/Vol] 661 pg/mL Normal 232-1245 [facility] Comment on above: Order Comment: Speci men Type: STOOL SPECIMEN [facility] Address: [address] [place] [address] Performed By: #### 2 9771-3 #### [facility] CLIA [id number] [address] [place] [address] [place] SHAWNAOVabigail 08-28-2024 CNOV Office Visit (FAMPWS ) HARJIT BRADSHAW ([id number]) 1940 Date Time Provider Department 08/28/24 12:00 [...] SHOULDER Left 01/09/2019 Dr. David Nieto @ [facility]; L reverse total shoulder replacement; L [...] (SYNTHROID) 112 (more content not included)... Normal [facility] 08-28-2024 [facility] Telephone (FAMPWS) HARJIT BRADSHAW ([id number]) 1940 F Date Time Provider Department 08/28/24 [facility] During your visit today, we recorded the following information about you: Vini Sparks, 08/28/2024 1:15 PM Signed Please fax Wind [employer] Engineer referral to [facility] per her request Also fax [...] by RANDY AGUILERA LPN on 08/28/24 Normal [facility] ECG COMPLETEon 08-28-2024 ECG COMPLETE Ventricular Rate : 9 3 BPM QRS Duration : 84 ms Q-T Interval : 364 ms QTC Calculation(Bazett) : 452 ms Calculated R Kelly : 7 degrees Calculated T Kelly : -57 degrees ATRIAL FIBRILLATION INFERIOR T WAVE ABNORMALITY ABNORMAL ECG Confirmed by MD SHALINI, DAVID ([id number]) on 09/02/2024 12:34:02 PM NAME : HARJIT BRADSHAW PID : [id number] : 1940 Gender : Female Race : ORD : [id number] Procedure Date : Aug 28 2024 12:47:38 Edit Date : Sep 02 2024 12:34:05 Diagnosis: ATRIAL FIBRILLATION INFERIOR T WAVE ABNORMALITY ABNORMAL ECG Confirmed by MD LOYA QARAB ([id number]) on 09/02/2024 12:34:02 PM Test Reason : R07.89 Other chest pain Location : 185 : [facility] Overread By : MD LOYA QARAB Edited By : MD LOYA QARAB Referred By : , Acquired by : Genaro MIN [facility] CNOVon 07-11-2024 CNOV Office Visit (FAMPWS ) HARJIT BRADSHAW ([id number]) 1940 F Date Time Provider Department 07/11/24 2:20 PM SIVA KNAPP [facility] During your visit today, we recorded [...] SHOULDER Left 01/09/2019 Dr. David Nieto @ [facility]; L reverse total shoulder replacement; L [...] no details, 85 Coronary Artery Disease Father [place], 94 Cancer Sister 57 liver Cancer Brother [...] due on (more content not included)... Normal [facility]29[facility]20[facility] HARJIT BRADSHAW ([id number]) 1940 F Date Time Provider Department 02/29/24 VINI SPARKS [facility] During your visit today, we recorded the following information about you: Purnima Galvez LPN 02/29/2024 9:18 AM Signed [facility] calling asking to clarify directions on [...] for 90 tablets with 1 refill. Called [facility] and spoke with pharmacist Camilla. Confirmed with [...] date is 07/09/23 and prescription number of [id number]. Pt states that sometimes she will empty [...] to speak with her daughter Lexy, Jesus, [id number] Owen and son Bravo. Nurse concerned about [...] Tried to inform no answer or VM. [place] Sarah Kinney 03/05/2024 4:49 PM Signed Patient returned phone call. Please call her on her 's cell: [phone]. Randy Aguilera LPN 03/06/2024 5:57 PM Signed Detailed message left on husbands VM. Allergies As of Date: 02/29/2024 Noted Allergy Reaction MORPHINE 03/03/2014 1 - Mental Status Change 5 - Intolerance 8 - GI Upset D (more content not included)... [facility] HARJIT BRADSHAW ([id number]) 1940 F Date Time Provider Department 02/28/24 VINI SPARKSWS During your visit today, we recorded the following information about you: Nayely, Deanna 02/28/2024 2:49 PM Signed Harjit is calling Vini Sparks DO today. Patient was at [facility] today and they have no record of receiving two of the medications sent on Monday sertraline (ZOLOFT) 100 mg tablet amLODIPine (NORVASC) 5 mg tablet Please contact pharmacy or send new scripts. Deana Ferreira MA 02/28/2024 3:01 PM Signed Called and spoke to 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] 01/20/2021 Tremor [R25.1] 01/20/2021 PALAM (generalized anxiety disorder) [F41.1] 01/20/2021 Osteopenia, senile [M85.80] 12/15/2021 Anxious mood [F41.9] 12/15/2021 Hyperkalemia [E87.5] 08/15/2022 Vitamin B12 deficiency [E53.8] 08/15/2022 Hyperglycemia [R73.9] 08/15/2022 Personal history of alcoholism (HCC) [F10.21] 08/15/2022 Depression, recurrent (HCC) [F33.9] 08/15/2022 Encounter Status:Closed by DEANA FERREIRA on 02/28/24 [facility] CNOVon 02-26-2024 CNOV Office Visit (FAMPWS ) AUGUSTINEHARJIT Senia ([id number]) 1940 F Date Time Provider Department 02/26/24 10:40 AM [facility] During your visit today, we recorded the [...] SHOULDER Left 01/09/2019 Dr. David Nieto @ [facility]; L reverse total shoulder replacement; L [...] Encouraged so (more content not included)... Normal [facility] 25(OH)D3 [facility] 2023 25-hydroxyvitamin D3 [Mass/Vol] 51.5 ng/mL Normal 31.0-80.0 [facility] Comment on above: Order Comment: Speci men Type: BLOOD SPECIMENOrdering Facility: [facility] Address: [address] [place] [address] Performed By: #### 1 989-3 ####[facility] [id number] [place] [address] [place] CBC W Auto Differential pane l (Bld)on 02-19-2024 Basophils (Bld) [#/Vol] 0.07 10*3/uL Normal <0.11 [facility] Comment on above: Order Comment: Elissai men Type: STOOL SPECIMEN Ordering Facility: [facility] Address: [address] [place] [address] Performed By: #### 2 9771-3 #### [facility] CLIA [id number] [address] [place] [address] [place] Basophils/100 WBC (Bld) 1.0 % Normal [facility] Comment on above: Order Comment: Speci men Type: STOOL SPECIMEN Ordering Facility: [facility] Address: [address] [place] [address] Performed By: #### 2 9771-3 #### [facility] CLIA [id number] [address] [place] [address] [place] Differential cell count method Nom (Bld) Auto Normal [facility] Comment on above: Order Comment: Speci men Type: STOOL SPECIMEN Ordering Facility: [facility] Address: [address] [place] [address] Performed By: #### 2 9771-3 #### [facility] CLIA [id number] [address] [place] [address] [place] Eosinophils (Bld) [#/Vol] 0.33 10*3/uL Normal <0.46 [facility] Comment on above: Order Comment: Speci men Type: STOOL SPECIMEN [facility] Address: [address] [place] [address] Performed By: #### 2 9771-3 #### [facility] CLIA [id number] [address] [place] [address] [place] Eosinophils/100 WBC (Bld) 4.6 % Normal [facility] Comment on above: Order Comment: Speci men Type: STOOL SPECIMEN Ordering Facility: [facility] Address: [address] [place] [address] Performed By: #### 2 9771-3 #### [facility] CLIA [id number] [address] [place] [address] [place] Erythrocyte distribution width (RBC) [Ratio] 13.8 % Normal 11.5-15.0 [facility] Comment on above: Order Comment: Speci men Type: STOOL SPECIMEN Ordering Facility: [facility] Address: [address] [place] [address] Performed By: #### 2 9771-3 #### [facility] CLIA [id number] [address] [place] [address] [place] Hematocrit (Bld) [Volume fraction] 39.5 % Normal 36.0-46.0 [facility] Comment on above: Order Comment: Speci men Type: STOOL SPECIMEN Ordering Facility: [facility] Address: [address] [place] [address] Performed By: #### 2 9771-3 #### [facility] CLIA [id number] [address] [place] [address] [place] Hemoglobin (Bld) [Mass/Vol] 12.8 g/dL Normal 11.5-15.5 [facility] Comment on above: Order Comment: Speci men Type: STOOL SPECIMEN Ordering Facility: [facility] Address: [address] [place] [address] Performed By: #### 2 9771-3 #### [facility] CLIA [id number] [address] [place] [address] [place] Immature granulocytes (Bld) [#/Vol] 0.03 10*3/uL Normal <0.10 [facility] Comment on above: Order Comment: Speci men Type: STOOL SPECIMEN Ordering Facility: [facility] Address: [address] [place] [address] Performed By: #### 2 9771-3 #### [facility] CLIA [id number] [address] [place] [address] [place] Immature granulocytes/100 WBC (Bld) 0.4 % Normal [facility] Comment on above: Order Comment: Speci men Type: STOOL SPECIMEN Ordering Facility: [facility] Address: [address] [place] [address] Performed By: #### 2 9771-3 #### [facility] CLIA [id number] [address] [place] [address] [place] Lymphocytes (Bld) [#/Vol] 1.52 10*3/uL Normal 1.00-4.00 [facility] Comment on above: Order Comment: Speci men Type: STOOL SPECIMEN Ordering Facility: [facility] Address: [address] [place] [address] Performed By: #### 2 9771-3 #### [facility] CLIA [id number] [address] [place] [address] [place] Lymphocytes/100 WBC (Bld) 21.3 % Normal [facility] Comment on above: Order Comment: Speci men Type: STOOL SPECIMEN Ordering Facility: [facility] Address: [address] [place] [address] Performed By: #### 2 9771-3 #### [facility] CLIA [id number] [address] [place] [address] [place] MCH (RBC) [Entitic mass] 31.0 pg Normal 26.0-34.0 [facility] Comment on above: Order Comment: Speci men Type: STOOL SPECIMEN Ordering Facility: [facility] Address: [address] [place] [address] Performed By: #### 2 9771-3 #### [facility] CLIA [id number] [address] [place] [address] [place] MCHC (RBC) [Mass/Vol] 32.4 g/dL Normal 30.5-36.0 [facility] Comment on above: Order Comment: Speci men Type: STOOL SPECIMEN Ordering Facility: [facility] Address: [address] [place] [address] Performed By: #### 2 9771-3 #### [facility] CLIA [id number] [address] [place] [address] [place] MCV (RBC) [Entitic vol] 95.6 fL Normal 80.0-100.0 [facility] Comment on above: Order Comment: Speci men Type: STOOL SPECIMEN Ordering Facility: [facility] Address: [address] [place] [address] Performed By: #### 2 9771-3 #### [facility] CLIA [id number] [address] [place] [address] [place] Monocytes (Bld) [#/Vol] 0.68 10*3/uL Normal <0.87 [facility] Comment on above: Order Comment: Speci men Type: STOOL SPECIMEN Ordering Facility: [facility] Address: [address] [place] [address] Performed By: #### 2 9771-3 #### [facility] CLIA [id number] [address] [place] [address] [place] Monocytes/100 WBC (Bld) 9.5 % Normal [facility] Comment on above: Order Comment: Speci men Type: STOOL SPECIMEN Ordering Facility: [facility] Address: [address] [place] [address] Performed By: #### 2 9771-3 #### [facility] CLIA [id number] [address] [place] [address] [place] Neutrophils (Bld) [#/Vol] 4.50 10*3/uL Normal 1.45-7.50 [facility] Comment on above: Order Comment: Speci men Type: STOOL SPECIMEN Ordering Facility: [facility] Address: [address] [place] [address] Performed By: #### 2 9771-3 #### [facility] CLIA [id number] [address] [place] [address] [place] Neutrophils/100 WBC (Bld) 63.2 % Normal [facility] Comment on above: Order Comment: Speci men Type: STOOL SPECIMEN Ordering Facility: [facility] Address: [address] [place] [address] Performed By: #### 2 9771-3 #### [facility] CLIA [id number] [address] [place] [address] [place] Nucleated RBC (Bld) [#/Vol] 10*3/uL Normal <0.01 [facility] Comment on above: Order Comment: Speci men Type: STOOL SPECIMEN Ordering Facility: [facility] Address: [address] [place] [address] Performed By: #### 2 9771-3 #### [facility] CLIA [id number] [address] [place] [address] [place] Nucleated RBC/100 WBC (Bld) [Ratio] 0.0 /100 WBC Normal [facility] Comment on above: Order Comment: Speci men Type: STOOL SPECIMEN Ordering Facility: [facility] Address: [address] [place] [address] Performed By: #### 2 9771-3 #### [facility] CLIA [id number] [address] [place] [address] [place] Platelet mean volume (Bld) [Entitic vol] 11.0 fL Normal 9.0-12.7 [facility] Comment on above: Order Comment: Speci men Type: STOOL SPECIMEN Ordering Facility: [facility] Address: [address] [place] [address] Performed By: #### 2 9771-3 #### [facility] CLIA [id number] [address] [place] [address] [place] Platelets (Bld) [#/Vol] 262 10*3/uL Normal 150-400 [facility] Comment on above: Order Comment: Speci men Type: STOOL SPECIMEN Ordering Facility: [facility] Address: [address] [place] [address] Performed By: #### 2 9771-3 #### [facility] CLIA [id number] [address] [place] [address] [place] RBC (Bld) [#/Vol] 4.13 10*6/uL Normal 3.90-5.20 [facility] Comment on above: Order Comment: Speci men Type: STOOL SPECIMEN Ordering Facility: [facility] Address: [address] [place] [address] Performed By: #### 2 9771-3 #### [facility] CLIA [id number] [address] [place] [address] [place] WBC (Bld) [#/Vol] 7.13 10*3/uL Normal 3.70-11.00 [facility] Comment on above: Order Comment: Speci men Type: STOOL SPECIMEN Ordering Facility: [facility] Address: [address] [place] [address] Performed By: #### 2 9771-3 #### [facility] CLIA [id number] [address] [place] [address] [place] Comprehensive metabolic 2000 panelon 02-19-2024 Albumin [Mass/Vol] 4.4 g/dL Normal 3.9-4.9 [facility] Comment on above: Order Comment: Speci men Type: STOOL SPECIMEN Ordering Facility: [facility] Address: [address] [place] [address] Performed By: #### 2 9771-3 #### [facility] CLIA [id number] [address] [place] [address] [place] ALP [Catalytic activity/Vol] 116 U/L Normal 34-123 [facility] Comment on above: Order Comment: Speci men Type: STOOL SPECIMEN Ordering Facility: [facility] Address: [address] [place] [address] Performed By: #### 2 9771-3 #### [facility] CLIA [id number] [address] [place] [address] [place] ALT [Catalytic activity/Vol] 15 U/L Normal 7-38 [facility] Comment on above: Order Comment: Speci men Type: STOOL SPECIMEN Ordering Facility: [facility] Address: [address] [place] [address] Performed By: #### 2 9771-3 #### [facility] CLIA [id number] [address] [place], [place] [address] [place] Anion gap [Moles/Vol] 12 mmol/L Normal 8-15 [facility] Comment on above: Order Comment: Speci men Type: STOOL SPECIMEN Ordering Facility: [facility] Address: [address] [place] [address] Performed By: #### 2 9771-3 #### [facility] CLIA [id number] [address] [place] [address] [place] AST [Catalytic activity/Vol] 21 U/L Normal 13-35 [facility] Comment on above: Order Comment: Speci men Type: STOOL SPECIMEN Ordering Facility: [facility] Address: [address] [place] [address] Performed By: #### 2 9771-3 #### [facility] CLIA [id number] [address] [place] [address] [place] Bilirubin [Mass/Vol] 0.5 mg/dL Normal 0.2-1.3 [facility] Comment on above: Order Comment: Speci men Type: STOOL SPECIMEN Ordering Facility: [facility] Address: [address] [place] [address] Performed By: #### 2 9771-3 #### [facility] CLIA [id number] [address] [place] [address] [place] Calcium [Mass/Vol] 9.3 mg/dL Normal 8.5-10.2 [facility] Comment on above: Order Comment: Speci men Type: STOOL SPECIMEN Ordering Facility: [facility] Address: [address] [place] [address] Performed By: #### 2 9771-3 #### [facility] CLIA [id number] [address] [place] [address] [place] Chloride [Moles/Vol] 102 mmol/L Normal 98-107 [facility] Comment on above: Order Comment: Speci men Type: STOOL SPECIMEN Ordering Facility: [facility] Address: [address] [place] [address] Performed By: #### 2 9771-3 #### [facility] CLIA [id number] [address] [place] [address] [place] CO2 [Moles/Vol] 25 mmol/L Normal 22-30 [facility] Comment on above: Order Comment: Speci men Type: STOOL SPECIMEN Ordering Facility: [facility] Address: [address] [place] [address] Performed By: #### 2 9771-3 #### [facility] CLIA [id number] [address] [place] [address] [place] Creatinine [Mass/Vol] 0.82 mg/dL Normal 0.58-0.96 [facility] Comment on above: Order Comment: Speci men Type: STOOL SPECIMEN Ordering Facility: [facility] Address: [address] [place] [address] Performed By: #### 2 9771-3 #### [facility] CLIA [id number] [address] [place] [address] [place] Creatinine and Glomerular filtration rate.predicted panel (S/P/Bld) 71 mL/min/1.73m??? Normal >=60 [facility] Comment on above: Order Comment: Speci men Type: STOOL SPECIMEN Ordering Facility: [facility] Address: [address] [place] [address] Result Comment: Halley mated Glomerular Filtration Rate [...] GFR. Performed By: #### 2 9771-3 #### [facility] CLIA [id number] [address] [place] [address] [place] Glucose [Mass/Vol] 94 mg/dL Normal 74-99 [facility] Comment on above: Order Comment: Speci men Type: STOOL SPECIMEN Ordering Facility: [facility] Address: [address] [place] [address] Result Comment: The [place] Diabetes Association (ADA) provides guidance for cutoff [...] Standards of Medical Care in Diabetes 2016, [place] Diabetes Association. Diabetes Care. 2016.39(Suppl 1). Performed By: #### 2 9771-3 #### [facility] CLIA [id number] [address] [place] [address] [place] Potassium [Moles/Vol] 4.4 mmol/L Normal 3.7-5.1 [facility] Comment on above: Order Comment: Speci men Type: STOOL SPECIMEN Ordering Facility: [facility] Address: [address] [place], [place] [address] Performed By: #### 2 9771-3 #### [facility] CLIA [id number] [address] [place] [address] [place] Protein [Mass/Vol] 6.8 g/dL Normal 6.3-8.0 [facility] Comment on above: Order Comment: Speci men Type: STOOL SPECIMEN Ordering Facility: [facility] Address: [address] [place] [address] Performed By: #### 2 9771-3 #### [facility] CLIA [id number] [address] [place] [address] [place] Sodium [Moles/Vol] 139 mmol/L Normal 136-144 [facility] Comment on above: Order Comment: Speci men Type: STOOL SPECIMEN Ordering Facility: [facility] Address: [address] [place] [address] Performed By: #### 2 9771-3 #### [facility] CLIA [id number] [address] [place] [address] [place] Urea nitrogen [Mass/Vol] 17 mg/dL Normal 7-21 [facility] Comment on above: Order Comment: Speci men Type: STOOL SPECIMEN Ordering Facility: [facility] Address: [address] [place] [address] Performed By: #### 2 9771-3 #### [facility] CLIA [id number] [address] [place] [address] [place] Lipid 1996 panelon 4 Cholesterol [Mass/Vol] 252 mg/dL High <200 [facility] Comment on above: Order Comment: Speci men Type: STOOL SPECIMEN Ordering Facility: [facility] Address: [address] [place] [address] Result Comment: <200 mg/dL, Desirable 200-239 mg/dL, Borderline high >239 mg/dL, High Performed By: #### 2 9771-3 #### [facility] CLIA [id number] [address] [place] [address] [place] Cholesterol in HDL [Mass/Vol] 100 mg/dL Normal >39 [facility] Comment on above: Order Comment: Speci men Type: STOOL SPECIMEN Ordering Facility: [facility] Address: [address] [place] [address] Result Comment: 40-5 9 mg/dL, Acceptable >59 mg/dL, High: Negative risk factor for coronary heart disease <40 mg/dL, Low: Positive risk factor for coronary heart disease Performed By: #### 2 9771-3 #### [facility] CLIA [id number] [address] [place] [address] [place] Cholesterol in LDL [Mass/Vol] 134 mg/dL High <100 [facility] Comment on above: Order Comment: Speci men Type: STOOL SPECIMEN Ordering Facility: [facility] Address: [address] [place] [address] Result Comment: <100 mg/dL, Optimal 100-129 mg/dL, Near optimal/above optimal 130-159 mg/dL, Borderline high 160-189 mg/dL, High >189 mg/dL, Very high Secondary prevention optimal LDL Cholesterol levels are recommended to be < 70 mg/dL Performed By: #### 2 9771-3 #### [facility] CLIA [id number] [address] [place] [address] [place] [facility] Cholesterol in LDL/Cholesterol in HDL [Mass ratio] 1.34 {ratio} Normal <2.54 [facility] Comment on above: Order Comment: Speci men Type: STOOL SPECIMEN Ordering Facility: [facility] Address: [address] [place] [address] Result Comment: Refe rence: 1. National Cholesterol Education Program ATP III Guideline At-A-Glance Quick Desk Reference: National Heart, Lung, and Blood [place]. National Institutes of Health. 2001: NIH Publication No. 01-3305. 2. An International Atherosclerosis Society position paper: global recommendations for the management of dyslipidemia: executive summary, Atherosclerosis. 2014: 232(2):410-413. Performed By: #### 2 9771-3 #### [facility] CLIA [id number] [address] [place] [address] [place] Cholesterol in VLDL [Mass/Vol] 18 mg/dL Normal <30 [facility] Comment on above: Order Comment: Speci men Type: STOOL SPECIMEN Ordering Facility: [facility] Address: [address] [place] [address] Performed By: #### 2 9771-3 #### [facility] CLIA [id number] [address] [place] [address] [place] Cholesterol non HDL [Mass/Vol] 152 mg/dL High <130 [facility] Comment on above: Order Comment: Speci men Type: STOOL SPECIMEN Ordering Facility: [facility] Address: [address] [place] [address] Result Comment: <130 mg/dL, Optimal 130-159 mg/dL, Near optimal/above optimal 160-189 mg/dL, Borderline high 190-219 mg/dL, High >219 mg/dL, Very high Secondary prevention optimal non HDL Cholesterol levels are recommended to be <100 mg/dL Performed By: #### 2 9771-3 #### [facility] CLIA [id number] [address] [place] [address] [place] Cholesterol.total/Choles terol in HDL [Mass ratio] 2.52 {ratio} Normal <5.10 [facility] Comment on above: Order Comment: Speci men Type: STOOL SPECIMEN Ordering Facility: [facility] Address: [address] [place] [address] Performed By: #### 2 9771-3 #### [facility] CLIA [id number] [address] [place] [address] [place] FASTING TIME 12 hrs Normal [facility] Comment on above: Order Comment: Speci men Type: STOOL SPECIMEN Ordering Facility: [facility] Address: [address] [place] [address] Performed By: #### 2 9771-3 #### [facility] CLIA [id number] [address] [place] [address] [place] Triglyceride [Mass/Vol] 91 mg/dL Normal <150 [facility] Comment on above: Order Comment: Speci men Type: STOOL SPECIMEN Ordering Facility: [facility] Address: [address] [place] [address] Result Comment: <150 mg/dL, Normal 150-199 mg/dL, Borderline high 200-499 mg/dL, High >499 mg/dL, Very high Performed By: #### 2 9771-3 #### [facility] CLIA [id number] [address] [place] [address] [place] T4 Free SerPl-mCncon 024 Free T4 [Mass/Vol] 1.6 ng/dL Normal 0.9-1.7 [facility] Comment on above: Order Comment: Speci men Type: STOOL SPECIMEN Ordering Facility: [facility] Address: [address] [place] [address] Performed By: #### 2 9771-3 #### [facility] CLIA [id number] [address] [place] [address] [place] TSH SerPl-aCncon 02-19-2024 TSH Qn 0.880 m[IU]/L Normal 0.270-4.200 [facility] Comment on above: Order Comment: Speci men Type: STOOL SPECIMEN Ordering Facility: [facility] Address: [address] [place] [address] Performed By: #### 2 9771-3 #### [facility] CLIA [id number] [address] [place] [address] [place] Vit B12 SerPl-mCncon 024 Cobalamin (Vitamin B12) [Mass/Vol] 537 pg/mL Normal 232-1245 [facility] Comment on above: Order Comment: Speci men Type: BLOOD SPECIMENOrdering Facility: [facility] Address: [address] [place] [address] Performed By: #### 2 132-9 ####[facility] [id number] [place] [address] [place] CNPElizabeth 02-09-2024 CNPN Telephone (FAMPWS) HARJIT BRADSHAW Senia ([id number]) 1940 F Date Time Provider Department 02/09/24 [...] calling: self Call patient at: at home [phone] (home) Was an appointment scheduled: No Closing statement: Results or non-symptom based questions: Thank you for calling [facility], your call will be returned within [...] Date Reviewed: 12/04/2023 Reviewed by: 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 APRN.CONSULAR OFFICER - Fully Assessed Reason for Visit: Lab Orders [1688] Primary Visit Diagnosis:Hypothyroid ism, acquired [E03.9] Other Visit Diagnoses:Dyslipidemi a [E78.5] Vitamin D deficiency [E55.9] Vitamin B12 deficiency [E53.8] Order(s):COMPREHENSIV E METABOLIC PANEL [SQCMP] Order #: [id number] FUTURE COMPLETE BLOOD COUNT AND DIFFERENTIAL [SQCBCDIF] Order #: [id number] FUTURE LIPID PANEL BASIC [SQLIPB] Order #: [id number] FUTURE THYROID STIMULATING HORMONE [SQTSH] Order #: [id number] FUTURE T4 FREE/FREE THYROXINE [SQFT4] Order #: [id number] FUTURE VITAMIN D 25 HYDROXY [SQVITD] Order #: [id number] FUTURE VITAMIN B12 [SQB12] Order #: [id number] FUTURE Prescriptions as of 02/12/2024 - losartan [...] Status:Closed by TALIA TORO on 02/12/24 Normal [facility] CBC W Auto Differential pane l (Bld)on 08-22-2023 Basophils (Bld) [#/Vol] 0.09 10*3/uL [facility] Basophils/100 WBC (Bld) 1.3 % [facility] Differential cell count method Nom (Bld) Auto [facility] Eosinophils (Bld) [#/Vol] 0.23 10*3/uL [facility] Eosinophils/100 WBC (Bld) 3.4 % [facility] Erythrocyte distribution width (RBC) [Ratio] 14.7 % 11.5 - 15.0 % [facility] Hematocrit (Bld) [Volume fraction] 38.5 % 36.0 - 46.0 % [facility] Hemoglobin (Bld) [Mass/Vol] 12.2 g/dL 11.5 - 15.5 g/dL [facility] Immature granulocytes (Bld) [#/Vol] 0.03 10*3/uL [facility] Immature granulocytes/100 WBC (Bld) 0.4 % [facility] Lymphocytes (Bld) [#/Vol] 1.35 10*3/uL [facility] Lymphocytes/100 WBC (Bld) 19.7 % [facility] MCH (RBC) [Entitic mass] 30.0 pg 26. 0 - 34.0 pg [facility] MCHC (RBC) [Mass/Vol] 31.7 g/dL 30.5 - 36.0 g/dL [facility] MCV (RBC) [Entitic vol] 94.8 fL 80.0 - 100.0 fL [facility] Monocytes (Bld) [#/Vol] 0.70 10*3/uL [facility] Monocytes/100 WBC (Bld) 10.2 % [facility] Neutrophils (Bld) [#/Vol] 4.46 10*3/uL [facility] Neutrophils/100 WBC (Bld) 65.0 % [facility] Nucleated RBC (Bld) [#/Vol] NINF [facility] Nucleated RBC/100 WBC (Bld) [Ratio] 0.0 % /100 WBC [facility] Platelet mean volume (Bld) [Entitic vol] 11.6 fL 9.0 - 12.7 fL [facility] Platelets (Bld) [#/Vol] 269 10*3/uL [facility] RBC (Bld) [#/Vol] 4.06 10*6/uL 3.90 - 5.2 0 m/uL [facility] WBC (Bld) [#/Vol] 6.86 10*3/uL [facility] Cobalamin (Vitamin B12) [Mas s/Vol]on 08-22-2023 Interpretation and review of laboratory results Normal [facility] Comprehensive metabolic 2000 panelon 08-22-2023 Albumin [Mass/Vol] 4.2 g/dL 3.9 - 4.9 g/dL [facility] ALP [Catalytic activity/Vol] 113 U/L 34 - 123 U/L [facility] [facility] ALT [Catalytic activity/Vol] 18 U/L 7 - 38 U/L [facility] Anion gap [Moles/Vol] 12 mmol/L 9 - 18 mmol/L [facility] AST [Catalytic activity/Vol] 28 U/L 13 - 35 U/L [facility] Bilirubin [Mass/Vol] 0.4 mg/dL 0.2 - 1 .3 mg/dL [facility] Calcium [Mass/Vol] 9.5 mg/dL 8.5 - 10. 2 mg/dL [facility] Chloride [Moles/Vol] 105 mmol/L 97 - 10 5 mmol/L [facility] CO2 [Moles/Vol] 23 mmol/L 22 - 30 mmol/L [facility] Creatinine [Mass/Vol] 0.76 mg/dL 0.58 - 0.96 mg/dL [facility] GFR/1.73 sq M.predicted among non-blacks MDRD (S/P/Bld) [Vol rate/Area] 78 mL/min/{1.73_m2} - PINF [facility] Comment on above: Estimated Glomerular Filtration [...] [Mass/Vol] 94 mg/dL 74 - 99 mg/dL [facility] Comment on above: The [place] Diabete s Association (ADA) provides guidance for [...] Standards of Medical Care in Diabetes 2016, [place] Diabetes Association. Diabetes Care. 2016.39(Suppl 1). Interpretation and review of laboratory results Normal [facility] Potassium [Moles/Vol] 4.8 mmol/L 3.7 - 5.1 mmol/L [facility] Protein [Mass/Vol] 7.1 g/dL 6.3 - 8.0 g/dL [facility] Sodium [Moles/Vol] 140 mmol/L 136 - 144 mmol/L [facility] Urea nitrogen [Mass/Vol] 17 mg/dL 7 - 21 mg/d L [facility] Lipid 1996 panelon 4 Cholesterol [Mass/Vol] 204 mg/dL High NINF - 200 mg/dL [facility] Comment on above: <200 mg/dL, Desirabl e 200-239 mg/dL, Borderline high >239 mg/dL, High Cholesterol in HDL [Mass/Vol] 90 mg/dL 39 - PINF mg/dL [facility] Comment on above: 40-59 mg/dL, Accepta ble >59 mg/dL, High: Negative risk factor for coronary heart disease <40 mg/dL, Low: Positive risk factor for coronary heart disease Cholesterol in LDL [Mass/Vol] 97 mg/dL NINF - 100 mg/dL [facility] Comment on above: <100 mg/dL, Optimal 100-129 mg/dL, Near optimal/above optimal 130-159 mg/dL, Borderline high 160-189 mg/dL, High >189 mg/dL, Very high Secondary prevention optimal LDL Cholesterol levels are recommended to be < 70 mg/dL Cholesterol in LDL/Cholesterol in HDL [Mass ratio] 1.08 {ratio} NINF - 2.54 [facility] Comment on above: Reference: 1. National Cholesterol Education Program ATP III Guideline At-A-Glance Quick Desk Reference: National Heart, Lung, and Blood [place]. National Institutes of Health. 2001: NIH Publication No. 01-3305. 2. An International Atherosclerosis Society position paper: global recommendations for the management of dyslipidemia: executive summary, Atherosclerosis. 2014: 232(2):410-413. Cholesterol in VLDL [Mass/Vol] 17 mg/dL NINF - 30 mg/dL [facility] Cholesterol non HDL [Mass/Vol] 114 mg/dL NINF - 130 mg/dL [facility] Comment on above: <130 mg/dL, Optimal 130-159 mg/dL, Near optimal/above optimal 160-189 mg/dL, Borderline high 190-219 mg/dL, High >219 mg/dL, Very high Secondary prevention optimal non HDL Cholesterol levels are recommended to be <100 mg/dL Cholesterol.total/Choles terol in HDL [Mass ratio] 2.27 {ratio} NINF - 5.10 [facility] Fasting Time 17 hrs [facility] Interpretation and review of laboratory results Abnormal [facility] Triglyceride [Mass/Vol] 84 mg/dL NINF - 150 mg/dL [facility] Comment on above: <150 mg/dL, Normal 150-199 mg/dL, Borderline high 200-499 mg/dL, High >499 mg/dL, Very high No Panel Informationon 08-21 Interpretation and review of laboratory results Normal [facility] T4 FREE/FREE THYROXINEon Free T4 [Mass/Vol] 1.4 ng/dL 0.9 - 1.7 ng/dL [facility] THYROID STIMULATING HORMONEo n 08-22-2023 TSH Qn 0.747 m[IU]/L [facility] VITAMIN B12on 08-22-2023 Cobalamin (Vitamin B12) [Mass/Vol] 516 pg/mL 232 - 1245 pg/mL [facility] XR Chest PA and Lateralon IMPRESSION: Stable exam without acute findings. Manager Intensive Care Unit: PSCCarmen Transcribe Date/Time: Jan 09 2023 11:32A Dictated by : SHAVON DUMONT MD This examination was interpreted and the report reviewed and electronically signed by: SHAVON DUMONT MD on Jan 09 2023 11:34AM [facility] DIVISION OF RADIOLOGY * * *Final [...] shows degenerative changes. DIVISION OF RADIOLOGY Provider, [facility] Luana garcia Chamberlain - 01/09/2023 * * *Final Report* * [...] IMPRESSION IMPRESSION: Stable exam without acute findings. Manager Intensive Care Unit: PSCB Transcribe Date/Time: Jan 09 2023 11:32A Dictated by : SHAVON DUMONT MD This examination was interpreted and the report reviewed and electronically signed by: SHAVON DUMONT MD on Jan 09 2023 11:34AM EST [facility] Radiology Study observation (narrative) Carlos [facility] XR Chest PA and LateralOrder ed By: Ccf Provider on 01-09-2023 [facility] AMBROSE SCREENING W TOMOon 01-05 [facility] ED NOTEon 01-18-2022 ED NOTE HNO ID: [id number] Author: Lulu Hurtado RN Service: Emergency Medicine Author Type: Registered Nurse Type: ED Notes Filed: 01/18/2022 4:46 PM Note Text: Pt verbalizes understanding of discharge instructions. Denies further questions, comments, concerns at this time. Continues to report that she is feeling much better. [facility] ED NOTE HNO ID: [id number] Author: Lulu Hurtado RN Service: Emergency Medicine Author Type: Registered Nurse Type: ED Notes Filed: 01/18/2022 4:08 PM Note Text: Pt sleeping. Awakens to voice and states that she is feeling much better. [facility] ED NOTE HNO ID: [id number] Author: Lulu Hurtado RN Service: Emergency Medicine Author Type: Registered Nurse Type: ED Notes Filed: 01/18/2022 2:47 PM Note Text: Physician to bedside. [facility] ED NOTE HNO ID: [id number] Author: Lulu Hurtado RN Service: Emergency Medicine [...] condition or needs. Call light in reach. [facility] ED NOTE HNO ID: [id number] Author: Lulu Hurtado RN Service: Emergency Medicine [...] Family at bedside. Call light in reach. 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 David Nieto @ [facility]; L reverse total shoulder replacement; L [...] no details, 85 Coronary Artery Disease Father [place], 94 Cancer Sister 57 liver Cancer Brother [...] and oriented (more content not included)... Normal [facility] Basic metabolic 2000 panelon 01-17-2022 Anion gap [Moles/Vol] 10 mmol/L Normal 9-18 [facility] Comment on above: Order Comment: Marychuy andrew Type: BLOOD SPECIMEN Ordering Facility: [facility] Address: [address] [place] [address] Performed By: #### 3 016-3, 61608-7 #### [facility] CLIA [id number] [address] [place] [address] [place] Calcium [Mass/Vol] 9.5 mg/dL Normal 8.5-10.2 [facility] Comment on above: Order Comment: Marychuy andrew Type: BLOOD SPECIMEN Ordering Facility: [facility] Address: [address] [place] [address] Performed By: #### 3 016-3, 78336-8 #### [facility] CLIA [id number] [address] [place] Chloride [Moles/Vol] 104 mmol/L Normal 97-105 [facility] Comment on above: Order Comment: Speci men Type: BLOOD SPECIMEN Ordering Facility: [facility] Address: [address] [place] [address] Performed By: #### 3 016-3, 17985-8 #### [facility] CLIA [id number] [address] [id number] [place] CO2 [Moles/Vol] 28 mmol/L Normal 22-30 [facility] Comment on above: Order Comment: Speci men Type: BLOOD SPECIMEN Ordering Facility: [facility] Address: [address] [place] [address] Performed By: #### 3 016-3, 87850-7 #### [facility] CLIA [id number] [address] OF [facility] Creatinine [Mass/Vol] 0.76 mg/dL Normal 0.58-0.96 [facility] Comment on above: Order Comment: Speci men Type: BLOOD SPECIMEN Ordering Facility: [facility] Address: [address] [place] [address] Performed By: #### 3 016-3, 65759-4 #### [facility] CLIA [id number] [address] ESTIMATED GLOMERULAR FILTRATION RATE 79 mL/min/1.73m??? Normal >=60 [facility] Comment on above: Order Comment: Speci men Type: BLOOD SPECIMEN Ordering Facility: [facility] Address: [address] [place] [address] Result Comment: Halley mated Glomerular Filtration Rate [...] actual GFR. Performed By: #### 3 016-3, 23326-2 #### [facility] CLIA [id number] [address] [place] [address] [place] Glucose [Mass/Vol] 106 mg/dL High 74-99 [facility] Comment on above: Order Comment: Marychuy andrew Type: BLOOD SPECIMEN Ordering Facility: [facility] Address: [address] [place], [place] [phone] Result Comment: The [place] Diabetes Association (ADA) provides guidance for cutoff [...] Standards of Medical Care in Diabetes 2016, [place] Diabetes Association. Diabetes Care. 2016.39(Suppl 1). Performed By: #### 3 016-3, 24785-2 #### [facility] CLIA [id number] [address] [place] [address] [place] Potassium [Moles/Vol] 4.1 mmol/L Normal 3.7-5.1 [facility] Comment on above: Order Comment: Marychuy andrew Type: BLOOD SPECIMEN Ordering Facility: [facility] Address: [address] [id number] Performed By: #### 3 016-3, 64118-7 #### [facility] CLIA [id number] [address] [place] [address] [place] Sodium [Moles/Vol] 142 mmol/L Normal 136-144 [facility] Comment on above: Order Comment: Marychuy andrew Type: BLOOD SPECIMEN Ordering Facility: [facility] Address: [address] [place] [address] Performed By: #### 3 016-3, 31119-9 #### [facility] CLIA [id number] [address] Urea nitrogen [Mass/Vol] 16 mg/dL Normal 7-21 [facility] Comment on above: Order Comment: Speci men Type: BLOOD SPECIMEN Ordering Facility: [facility] Address: [address] [place] [address] Performed By: #### 3 016-3, 04962-5 #### [facility] CLIA [id number] [address] CBC W Auto Differential pane l (Bld)on 01-17-2022 Basophils (Bld) [#/Vol] 0.04 10*3/uL Normal <0.11 [facility] Comment on above: Order Comment: Speci men Type: BLOOD SPECIMEN Ordering Facility: [facility] Address: [address] [place] [address] Performed By: #### 5 7021-8 #### [facility] CLIA [id number] [address] [place] [address] Basophils/100 WBC (Bld) 0.5 % Normal [facility] Comment on above: Order Comment: Speci men Type: BLOOD SPECIMEN Ordering Facility: [facility] Address: [address] [place] [address] Performed By: #### 5 7021-8 #### [facility] CLIA [id number] [address] Differential cell count method Nom (Bld) Auto Normal [facility] Comment on above: Order Comment: Speci men Type: BLOOD SPECIMEN Ordering Facility: [facility] Address: [address] [place] [address] Performed By: #### 5 7021-8 #### [facility] CLIA [id number] [address] [place] Eosinophils (Bld) [#/Vol] 0.27 10*3/uL Normal <0.46 [facility] Comment on above: Order Comment: Speci men Type: BLOOD SPECIMEN Ordering Facility: [facility] Address: [address] [place] [address] Performed By: #### 5 7021-8 #### [facility] CLIA [id number] [address] [place] Eosinophils/100 WBC (Bld) 3.3 % Normal [facility] Comment on above: Order Comment: Speci men Type: BLOOD SPECIMEN Ordering Facility: [facility] Address: [address] [place] [address] Performed By: #### 5 7021-8 #### [facility] CLIA [id number] [address] [place] Erythrocyte distribution width (RBC) [Ratio] 13.0 % Normal 11.5-15.0 [facility] Comment on above: Order Comment: Speci men Type: BLOOD SPECIMEN Ordering Facility: [facility] Address: [address] [place] [address] Performed By: #### 5 7021-8 #### [facility] CLIA [id number] [address] [place] Hematocrit (Bld) [Volume fraction] 38.1 % Normal 36.0-46.0 [facility] Comment on above: Order Comment: Speci men Type: BLOOD SPECIMEN Ordering Facility: [facility] Address: [address] [place] [address] Performed By: #### 5 7021-8 #### [facility] CLIA [id number] [address] [place] Hemoglobin (Bld) [Mass/Vol] 12.7 g/dL Normal 11.5-15.5 [facility] Comment on above: Order Comment: Speci men Type: BLOOD SPECIMEN Ordering Facility: [facility] Address: [address] [address] Performed By: #### 5 7021-8 #### [facility] CLIA [id number] [address] [place] [address] [place] Lymphocytes (Bld) [#/Vol] 1.63 10*3/uL Normal 1.00-4.00 [facility] Comment on above: Order Comment: Speci men Type: BLOOD SPECIMEN Ordering Facility: [facility] Address: [address] [place] [address] Performed By: #### 5 7021-8 #### [facility] CLIA [id number] [address] [place] [address] Lymphocytes/100 WBC (Bld) 20.0 % Normal [facility] Comment on above: Order Comment: Speci men Type: BLOOD SPECIMEN Ordering Facility: [facility] Address: [address] [place] [address] Performed By: #### 5 7021-8 #### [facility] CLIA [id number] [address] [place] [address] OF [facility] MCH (RBC) [Entitic mass] 30.7 pg Normal 26.0-34.0 [facility] Comment on above: Order Comment: Speci men Type: BLOOD SPECIMEN Ordering Facility: [facility] Address: [address] [place] [address] Performed By: #### 5 7021-8 #### [facility] CLIA [id number] [address] [place] [address] OF [facility] MCHC (RBC) [Mass/Vol] 33.3 g/dL Normal 30.5-36.0 [facility] Comment on above: Order Comment: Speci men Type: BLOOD SPECIMEN Ordering Facility: [facility] Address: [address] [place] [address] Performed By: #### 5 7021-8 #### [facility] CLIA [id number] [address] MCV (RBC) [Entitic vol] 92.0 fL Normal 80.0-100.0 [facility] Comment on above: Order Comment: Speci men Type: BLOOD SPECIMEN Ordering Facility: [facility] Address: [address] [place] [address] Performed By: #### 5 7021-8 #### [facility] CLIA [id number] [address] [place] [address] [place] Monocytes (Bld) [#/Vol] 0.69 10*3/uL Normal <0.87 [facility] Comment on above: Order Comment: Speci men Type: BLOOD SPECIMEN Ordering Facility: [facility] Address: [address] [place] [address] Performed By: #### 5 7021-8 #### [facility] CLIA [id number] [address] [place], [place] [address] [place] [address] [place] Monocytes/100 WBC (Bld) 8.5 % Normal [facility] Comment on above: Order Comment: Speci men Type: BLOOD SPECIMEN Ordering Facility: [facility] Address: [address] [place] [address] Performed By: #### 5 7021-8 #### [facility] CLIA [id number] [address] [place] [address] [place] Neutrophils (Bld) [#/Vol] 5.52 10*3/uL Normal 1.45-7.50 [facility] Comment on above: Order Comment: Speci men Type: BLOOD SPECIMEN Ordering Facility: [facility] Address: [address] [place] [address] Performed By: #### 5 7021-8 #### [facility] CLIA [id number] [address] [place] Neutrophils/100 WBC (Bld) 67.7 % Normal [facility] Comment on above: Order Comment: Speci men Type: BLOOD SPECIMEN Ordering Facility: [facility] Address: [address] [place] [address] Performed By: #### 5 7021-8 #### [facility] CLIA [id number] [address] [place] [address] [place] Platelet mean volume (Bld) [Entitic vol] 11.1 fL Normal 9.0-12.7 [facility] Comment on above: Order Comment: Speci men Type: BLOOD SPECIMEN Ordering Facility: [facility] Address: [address] [place] [address] Performed By: #### 5 7021-8 #### [facility] CLIA [id number] [address] [place] [address] [place] Platelets (Bld) [#/Vol] 261 10*3/uL Normal 150-400 [facility] Comment on above: Order Comment: Speci men Type: BLOOD SPECIMEN Ordering Facility: [facility] Address: [address] [place] [address] Performed By: #### 5 7021-8 #### [facility] CLIA [id number] [address] [place] [address] [place] RBC (Bld) [#/Vol] 4.14 10*6/uL Normal 3.90-5.20 [facility] Comment on above: Order Comment: Speci men Type: BLOOD SPECIMEN Ordering Facility: [facility] Address: [address] [place] [address] Performed By: #### 5 7021-8 #### [facility] CLIA [id number] [address] [place] [address] [place] WBC (Bld) [#/Vol] 8.15 10*3/uL Normal 3.70-11.00 [facility] Comment on above: Order Comment: Speci men Type: BLOOD SPECIMEN Ordering Facility: [facility] Address: [address] [place] [address] Performed By: #### 5 7021-8 #### [facility] CLIA [id number] [address] [place], [place] [address] [place] [address] [place] [address] BRAIN WO IVCONon 01-18-[address] BRAIN WO IVCON * * *Final Report* * * DATE OF EXAM: Jan 17 2022 2:39PM [facility] 0504 - CT BRAIN WO IVCON [...] were required COMPARISON: MRI brain 10/15/2020 RESULT: Smt Operator (topogram) images: No additional findings. Post-operative change: [...] are unremarkable. IMPRESSION: No acute intracranial findings. Manager Intensive Care Unit: PSCB Transcribe Date/Time: Jan 17 2022 2:50P Dictated by : ELOY RICH MD This examination was interpreted and the report reviewed and electronically signed by: ELOY RICH MD on Jan 17 2022 2:53PM EST [id number] N Normal [facility] ECG COMPLETEon 01-17-2022 ECG COMPLETE Ventricular Rate : 5 4 BPM Atrial Rate : 54 BPM P-R Interval : 144 ms QRS Duration : 92 ms Q-T Interval : 420 ms QTC Calculation(Bazett) : 398 ms Calculated P Kelly : -3 degrees Calculated R Kelly : 23 degrees Calculated T Kelly : -23 degrees SINUS BRADYCARDIA INCOMPLETE RIGHT BUNDLE BRANCH BLOCK OTHERWISE NORMAL ECG NO PREVIOUS ECGS AVAILABLE Confirmed by MD ALYSSA, VI ([id number]) on 01/18/2022 11:15:05 PM NAME : HARJIT BRADSHAW PID : [id number] : 1940 Gender : Female Race : ORD : [id number] Procedure Date : Jan 17 2022 14:22:56 Edit Date : Jan 18 2022 23:15:05 Diagnosis: SINUS BRADYCARDIA INCOMPLETE RIGHT BUNDLE BRANCH BLOCK OTHERWISE NORMAL ECG NO PREVIOUS ECGS AVAILABLE Confirmed by MD SHAH VINAYAK ([id number]) on 01/18/2022 11:15:05 PM Test Reason : Hypertension Location : 150 : [place] 12 Overread By : MD SHAH VINAYAK Edited By : MD SHAH VINAYAK Referred By : , Acquired by : GRANT WAY [facility] ED NOTEon 01-17-2022 ED NOTE HNO ID: [id number] Author: Seth Muro RN Service: Emergency Medicine [...] anything else to help you? No Normal [facility] ED PROV NOTEon 01-17-2022 ED PROV NOTE HNO ID: [id number] Author: Gloria Brown DO Service: Emergency Medicine [...] SHOULDER Left 01/09/2019 Dr. David Nieto @ [facility]; L reverse total shoulder replacement; L [...] no details, 85 Coronary Artery Disease Father [place], 94 Cancer Sister 57 liver Cancer Brother [...] Extraocular m (more content not included)... Normal [facility] TSH SerPl-aCncon 01-17-2022 TSH Qn 0.124 m[IU]/L Low 0.270-4.200 [facility] Comment on above: Order Comment: Speci men Type: BLOOD SPECIMENOrdering Facility: [facility] Address: [address] [place] [address] Performed By: #### 3 016-3, 61434-6 ####[facility] [id number] [place] [address] [place] Urinalysis complete panel (U )on 01-17-2022 Bacteria LM.HPF (Urine sed) [#/Area] Many Abnormal None Seen [facility] Comment on above: Order Comment: Speci men Type: URINE SPECIMEN Ordering Facility: [facility] Address: [address] [place] [address] Performed By: #### 2 4356-8 #### [facility] CLIA [id number] [address] Bilirubin Ql (U) Negative Normal Negative [facility] Comment on above: Order Comment: Speci men Type: URINE SPECIMEN Ordering Facility: [facility] Address: [address] [place] [address] Performed By: #### 2 4356-8 #### [facility] CLIA [id number] [address] Clarity (Unsp spec) Slightly Cloudy Abnormal Clear [facility] Comment on above: Order Comment: Speci men Type: URINE SPECIMEN Ordering Facility: [facility] Address: [address] [place] [address] Performed By: #### 2 4356-8 #### [facility] CLIA [id number] [address] Color (U) Yellow Normal Yellow [facility] Comment on above: Order Comment: Speci men Type: URINE SPECIMEN Ordering Facility: [facility] Address: [address] [place] [address] Performed By: #### 2 4356-8 #### [facility] CLIA [id number] [address] [place] [id number] [facility] Glucose Test strip (U) [Mass/Vol] Negative Normal Negative [facility] Comment on above: Order Comment: Speci men Type: URINE SPECIMEN Ordering Facility: [facility] Address: [address] [place] [address] Performed By: #### 2 4356-8 #### [facility] CLIA [id number] [address] [place] [address] [facility] Hemoglobin Ql (U) Negative Normal Negative [facility] Comment on above: Order Comment: Speci men Type: URINE SPECIMEN Ordering Facility: [facility] Address: [address] [place] [address] Performed By: #### 2 4356-8 #### [facility] CLIA [id number] [address] [place], [place] [id number] [place] [address] [place] Ketones Ql (U) Negative Normal Negative [facility] Comment on above: Order Comment: Speci men Type: URINE SPECIMEN Ordering Facility: [facility] Address: [address] [place] [address] Performed By: #### 2 4356-8 #### [facility] CLIA [id number] [address] [place] Leukocyte esterase Test strip Ql (U) Negative Normal Negative [facility] Comment on above: Order Comment: Speci men Type: URINE SPECIMEN Ordering Facility: [facility] Address: [address] [place] [address] Performed By: #### 2 4356-8 #### [facility] CLIA [id number] [address] [place] Nitrite Ql (U) Negative Normal Negative [facility] Comment on above: Order Comment: Speci men Type: URINE SPECIMEN Ordering Facility: [facility] Address: [address] [place] [address] Performed By: #### 2 4356-8 #### [facility] CLIA [id number] 225 [place] [address] [facility] pH (U) 7.0 [pH] Normal 5.0-8.0 [facility] Comment on above: Order Comment: Speci men Type: URINE SPECIMEN Ordering Facility: [facility] Address: [address] [place] [address] Performed By: #### 2 4356-8 #### [facility] CLIA [id number] [address] Protein (U) [Mass/Vol] Negative Normal Negative [facility] Comment on above: Order Comment: Speci men Type: URINE SPECIMEN Ordering Facility: [facility] Address: [address] [place] [address] Performed By: #### 2 4356-8 #### [facility] CLIA [id number] [address] RBC LM.HPF (Urine sed) [#/Area] 0-3 /HPF Normal 0-3 /HPF [facility] Comment on above: Order Comment: Speci men Type: URINE SPECIMEN Ordering Facility: [facility] Address: [address] [place] [address] Performed By: #### 2 4356-8 #### [facility] CLIA [id number] [address] Specific gravity (U) [Rel density] 1.015 Normal 1.005-1.030 [facility] Comment on above: Order Comment: Speci men Type: URINE SPECIMEN Ordering Facility: [facility] Address: [address] [place] [address] Performed By: #### 2 4356-8 #### [facility] CLIA [id number] [address] Urobilinogen Ql (U) 0.2 EU/dL Normal 0.2-1.0 EU/dL [facility] Comment on above: Order Comment: Speci men Type: URINE SPECIMEN Ordering Facility: [facility] Address: [address] [place] [address] Performed By: #### 2 4356-8 #### [facility] CLIA [id number] [address] WBC LM.HPF (Urine sed) [#/Area] 0-5 /HPF Normal 0-5 /HPF [facility] Comment on above: Order Comment: Speci men Type: URINE SPECIMEN Ordering Facility: [facility] Address: [address] [place] [address] Performed By: #### 2 4356-8 #### [facility] CLIA [id number] [address] [place] [address] [address] [place] [facility] XR CHEST 1V FRONTALon 2021 XR CHEST [...] shoulder arthroplasty. IMPRESSION: No acute radiographic abnormality. Manager Intensive Care Unit: PSCB Transcribe Date/Time: Jan 17 2022 2:49P Dictated by : ELOY RICH MD This examination was interpreted and the report reviewed and electronically signed by: ELOY RICH MD on Jan 17 2022 2:50PM EST [id number] N Normal [facility] AMBROSE SCREENING W Joshua 12-31 [facility] Vital Signs Date Time Vital Sign Value Performing Clinician Facility 01-16-2025 10:34-0400 Body height 154.[address] Vini Sparks DO Work Phone: [facility] 01-16-2025 10:34-0400 Body mass index (BMI) [Ratio] 30.4 kg/m2 Dr. Vini Sparks DO Work Phone: [facility] 01-16-2025 10:34-0400 Body weight 73.[address] Vini Sparks DO Work Phone: [facility] 01-16-2025 10:34-0400 Diastolic blood pressure 91 mm[Hg] Dr. Vini Sparks DO Work Phone: [facility] 01-16-2025 10:34-0400 Heart rate 93 /min Dr. Vini Sparks DO Work Phone: 7(649)069-420140 [place] [address] 01-16-2025 10:34-0400 Respiratory rate 18 /min Dr. Vini Sparks DO Work Phone: 0(186)149-025940 [place] [address] 01-16-2025 10:34-0400 SaO2% (BldA) [Mass fraction] 96 % Dr. Vini Sparks DO Work Phone: 9(706)945-342840 [place] [address] 01-16-2025 10:34-0400 Systolic blood pressure 133 mm[Hg] Dr. Vini Sparks DO Work Phone: 5(993)599-392140 [place] [address] 12-12-2024 08:30-0400 Body height 154.[address] Vini Sparks DO Work Phone: 5(154)489-372240 [place] [address] 12-12-2024 08:30-0400 Body mass index (BMI) [Ratio] 30.9 kg/m2 Dr. Vini Sparks DO Work Phone: 1(889)262-662740 [place] [address] 12-12-2024 08:30-0400 Body weight 74.[address] Vini Sparks DO Work Phone: 7(381)205-015240 [place] [address] 12-12-2024 08:30-0400 Diastolic blood pressure 90 mm[Hg] Dr. Vini Sparks DO Work Phone: 3(026)078-376640 [place] [address] 12-12-2024 08:30-0400 Heart rate 74 /min Dr. Vini Sparks DO Work Phone: 7(061)415-750640 [place] [address] 12-12-2024 08:30-0400 Respiratory rate 16 /min Dr. Vini Sparks DO Work Phone: 1(966)374-447740 [place] [address] 12-12-2024 08:30-0400 Systolic blood pressure 140 mm[Hg] Dr. Vini Sparks DO Work Phone: 9(382)487-924940 [place] [address] 10-15-2024 13:14-0400 Body height 154.[address] Vini Sparks DO Work Phone: 9(975)245-445540 [place] [address] 10-15-2024 13:14-0400 Body mass index (BMI) [Ratio] 30.6 kg/m2 Dr. Vini Sparks DO Work Phone: [facility] 10-15-2024 13:14-0400 Body weight 73.[address] Vini Sparks DO Work Phone: [facility] 10-15-2024 13:14-0400 Diastolic blood pressure 76 mm[Hg] Dr. Vini Sparks DO Work Phone: 5(643)803-995140 [place] [address] 10-15-2024 13:14-0400 Heart rate 86 /min Dr. Vini Sparks DO Work Phone: 2(581)783-734940 [place] [address] 10-15-2024 13:14-0400 Respiratory rate 18 /min Dr. Vini Sparks DO Work Phone: 0(477)226-735040 [place] [address] 10-15-2024 13:14-0400 SaO2% (BldA) [Mass fraction] 95 % Dr. Vini Sparks DO Work Phone: 0(020)121-883840 [place] [address] 10-15-2024 13:14-0400 Systolic blood pressure 114 mm[Hg] Dr. Vini Sparks DO Work Phone: 2(160)678-888140 [place] [address] 08-28-2024 11:47-0400 Body height 156 cm Vini Sparks DO Work Phone: [facility] 08-28-2024 11:47-0400 Body mass index (BMI) [Ratio] 30.75 kg/m2 Vini Sparks DO Work Phone: [facility] 08-28-2024 11:47-0400 Body temperature 97 [degF] Vini Sparks DO Work Phone: [facility] 08-28-2024 11:47-0400 Body weight 74.84 kg Vini Sparks DO Work Phone: [facility] 08-28-2024 11:47-0400 Diastolic blood pressure 80 mm[Hg] Vini Sparks DO Work Phone: [facility] 08-28-2024 11:47-0400 Heart rate 76 /min Vini Sparks DO Work Phone: [facility] 08-28-2024 11:47-0400 Respiratory rate 16 /min Vini Sparks DO Work Phone: [facility] 08-28-2024 11:47-0400 Systolic blood pressure 120 mm[Hg] Vini Sparks DO Work Phone: [facility] 07-11-2024 14:31-0400 Body mass index (BMI) [Ratio] 30.7 kg/m2 Siva Knapp MD Work Phone: [facility] 07-11-2024 14:31-0400 Body weight 74.7 kg Siva Knapp MD Work Phone: [facility] 07-11-2024 14:31-0400 Diastolic blood pressure 84 mm[Hg] Siva Knapp MD Work Phone: [facility] 07-11-2024 14:31-0400 Heart rate 60 /min Siva Knapp MD Work Phone: [facility] 07-11-2024 14:31-0400 Respiratory rate 18 /min Siva Knapp MD Work Phone: [facility] 07-11-2024 14:31-0400 Systolic blood pressure 130 mm[Hg] Siva Knapp MD Work Phone: [facility] 02-26-2024 10:32-0500 Body mass index (BMI) [Ratio] 31.5 kg/m2 Vini Sparks DO Work Phone: [facility] 02-26-2024 10:32-0500 Body temperature 97 [degF] Vini Sparks DO Work Phone: [facility] 02-26-2024 10:32-0500 Body weight 76.66 kg Vini Sparks DO Work Phone: [facility] 02-26-2024 10:32-0500 Diastolic blood pressure 80 mm[Hg] Vini Sparks DO Work Phone: [facility] 02-26-2024 10:32-0500 Heart rate 60 /min Vini Sparks DO Work Phone: [facility] 02-26-2024 10:32-0500 Respiratory rate 16 /min Vini Sparks DO Work Phone: [facility] 02-26-2024 10:32-0500 Systolic blood pressure 120 mm[Hg] Vini Sparks DO Work Phone: [facility] 12-04-2023 11:24-0400 Body mass index (BMI) [Ratio] 31.81 kg/m2 Hastings Negro AGILE COACH.CONSULAR OFFICER Work Phone: [facility] 12-04-2023 11:24-0400 Body temperature 97.5 [degF] 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 AGILE COACH.CONSULAR OFFICER Work Phone: [facility] 12-04-2023 11:24-0400 Body weight 77.4 kg 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 AGILE COACH.CONSULAR OFFICER Work Phone: [facility] 12-04-2023 11:24-0400 Diastolic blood pressure 70 mm[Hg] Hastings Negro AGILE COACH.CONSULAR OFFICER Work Phone: [facility] 12-04-2023 11:24-0400 Heart rate 55 /min Hastings Negro AGILE COACH.CONSULAR OFFICER Work Phone: [facility] 12-04-2023 11:24-0400 Systolic blood pressure 143 mm[Hg] 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 AGILE COACH.CONSULAR OFFICER Work Phone: [facility] 08-22-2023 10:37-0400 Body mass index (BMI) [Ratio] 32.25 kg/m2 Vini Sparks DO Work Phone: [facility] 08-22-2023 10:37-0400 Body temperature 97.2 [degF] Vini Sparks DO Work Phone: [facility] 08-22-2023 10:37-0400 Body weight 78.47 kg Vini Sparks DO Work Phone: [facility] 08-22-2023 10:37-0400 Diastolic blood pressure 80 mm[Hg] Vini Sparks DO Work Phone: [facility] 08-22-2023 10:37-0400 Heart rate 60 /min Vini Sparks DO Work Phone: [facility] 08-22-2023 10:37-0400 Respiratory rate 16 /min Vini Sparks DO Work Phone: [facility] 08-22-2023 10:37-0400 Systolic blood pressure 130 mm[Hg] Vini Sparks DO Work Phone: [facility] 06-29-2023 11:37-0400 Body temperature 97.9 [degF] Patience Praisler-Wood AGILE COACH.CONSULAR OFFICER Work Phone: [facility] 06-29-2023 11:37-0400 Body weight 78.2 kg Patience Praisler-Wood AGILE COACH.CONSULAR OFFICER Work Phone: [facility] 06-29-2023 11:37-0400 Diastolic blood pressure 72 mm[Hg] Patience Praisler-Wood AGILE COACH.CONSULAR OFFICER Work Phone: [facility] 06-29-2023 11:37-0400 Heart rate 63 /min Patience Praisler-Wood AGILE COACH.CONSULAR OFFICER Work Phone: [facility] 06-29-2023 11:37-0400 Respiratory rate 16 /min Patience Praisler-Wood AGILE COACH.CONSULAR OFFICER Work Phone: [facility] 06-29-2023 11:37-0400 SaO2% (BldA) [Mass fraction] 96 % Patience Praisler-Wood AGILE COACH.CONSULAR OFFICER Work Phone: [facility] 06-29-2023 11:37-0400 Systolic blood pressure 128 mm[Hg] Patience Praisler-Wood AGILE COACH.CONSULAR OFFICER Work Phone: [facility] 02-13-2023 13:00-0400 Body temperature 97.59 [degF] Susanna Older AGILE COACH.CONSULAR OFFICER Work Phone: [facility] 12-02-2022 11:16-0400 Body height 156 cm Hastings Negro AGILE COACH.CONSULAR OFFICER Work Phone: [facility] 12-02-2022 11:16-0400 Body temperature 98.1 [degF] Hastings Negro AGILE COACH.CONSULAR OFFICER Work Phone: [facility] 12-02-2022 11:16-0400 Body weight 78.93 kg 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 AGILE COACH.CONSULAR OFFICER Work Phone: [facility] 12-02-2022 11:16-0400 Diastolic blood pressure 67 mm[Hg] Hastings Negro AGILE COACH.CONSULAR OFFICER Work Phone: [facility] 12-02-2022 11:16-0400 Heart rate 59 /min Hastings Negro AGILE COACH.CONSULAR OFFICER Work Phone: [facility] 12-02-2022 11:16-0400 SaO2% (BldA) [Mass fraction] 98 % 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 AGILE COACH.CONSULAR OFFICER Work Phone: [facility] 12-02-2022 11:16-0400 Systolic blood pressure 128 mm[Hg] Hastings Negro AGILE COACH.CONSULAR OFFICER Work Phone: [facility] 08-15-2022 10:41-0400 Body temperature 96.6 [degF] Vini Sparks DO Work Phone: [facility] 08-15-2022 10:41-0400 Body weight 78.47 kg Vini Sparks DO Work Phone: [facility] 08-15-2022 10:41-0400 Diastolic blood pressure 84 mm[Hg] Vini Sparks DO Work Phone: [facility] 08-15-2022 10:41-0400 Heart rate 56 /min Vini Sparks DO Work Phone: [facility] 08-15-2022 10:41-0400 Respiratory rate 20 /min Vini Sparks DO Work Phone: [facility] 08-15-2022 10:41-0400 Systolic blood pressure 132 mm[Hg] Vini Sparks DO Work Phone: [facility] 06-13-2022 11:06-0500 Body weight 79.47 kg Radha Rhiannon AGILE COACH.CONSULAR OFFICER Work Phone: [facility] 06-13-2022 11:06-0500 Diastolic blood pressure 78 mm[Hg] Radha Rhiannon AGILE COACH.CONSULAR OFFICER Work Phone: [facility] 06-13-2022 11:06-0500 Heart rate 51 /min Radha Rhiannon AGILE COACH.CONSULAR OFFICER Work Phone: [facility] 06-13-2022 11:06-0500 SaO2% (BldA) [Mass fraction] 96 % Radha Rhiannon AGILE COACH.CONSULAR OFFICER Work Phone: [facility] 06-13-2022 11:06-0500 Systolic blood pressure 124 mm[Hg] Radha Rhiannon AGILE COACH.CONSULAR OFFICER Work Phone: [facility] 01-21-2022 11:10-0400 Body weight 76.3 kg Ayesha Zurawick AGILE COACH.CONSULAR OFFICER Work Phone: [facility] 01-21-2022 11:10-0400 Diastolic blood pressure 80 mm[Hg] Ayesha Zurawick AGILE COACH.CONSULAR OFFICER Work Phone: [facility] 01-21-2022 11:10-0400 Heart rate 53 /min Ayesha Zurawick AGILE COACH.CONSULAR OFFICER Work Phone: [facility] 01-21-2022 11:10-0400 Respiratory rate 14 /min Ayesha Zurawick AGILE COACH.CONSULAR OFFICER Work Phone: [facility] 01-21-2022 11:10-0400 SaO2% (BldA) [Mass fraction] 100 % Ayesha Zurawick AGILE COACH.CONSULAR OFFICER Work Phone: [facility] 01-21-2022 11:10-0400 Systolic blood pressure 170 mm[Hg] Ayesha Zurawick AGILE COACH.CONSULAR OFFICER Work Phone: [facility] 01-03-2022 14:16-0400 Body weight 76.66 kg Yamilexhof AGILE COACH.CONSULAR OFFICER Work Phone: [facility] 01-03-2022 14:16-0400 Diastolic blood pressure 88 mm[Hg] Tannhof AGILE COACH.CONSULAR OFFICER Work Phone: [facility] 01-03-2022 14:16-0400 Heart rate 61 /min raquel Kaminskihof AGILE COACH.CONSULAR OFFICER Work Phone: [facility] 01-03-2022 14:16-0400 Respiratory rate 16 /min Ashley Kaminskihof AGILE COACH.CONSULAR OFFICER Work Phone: [facility] 01-03-2022 14:16-0400 SaO2% (BldA) [Mass fraction] 98 % Ashley Kaminskihof AGILE COACH.CONSULAR OFFICER Work Phone: [facility] 01-03-2022 14:16-0400 Systolic blood pressure 138 mm[Hg] raquel Kaminskihof AGILE COACH.CONSULAR OFFICER Work Phone: [facility] 12-14-2021 12:26-0400 Body temperature 97.5 [degF] Vini Sparks DO Work Phone: [facility] 12-14-2021 12:26-0400 Body weight 77.11 kg Vini Sparks DO Work Phone: [facility] 12-14-2021 12:26-0400 Diastolic blood pressure 70 mm[Hg] Vini Sparks DO Work Phone: [facility] 12-14-2021 12:26-0400 Heart rate 64 /min Vini Sparks DO Work Phone: [facility] 12-14-2021 12:26-0400 Respiratory rate 16 /min Vini Sparks DO Work Phone: [facility] 12-14-2021 12:26-0400 Systolic blood pressure 120 mm[Hg] Vini Sparks DO Work Phone: [facility] 12-02-2021 11:27-0400 Body height 157.5 cm 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 AGILE COACH.CONSULAR OFFICER Work Phone: [facility] 12-02-2021 11:27-0400 Body temperature 97.59 [degF] 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 AGILE COACH.CONSULAR OFFICER Work Phone: [facility] 12-02-2021 11:27-0400 Body weight 77.56 kg Hastings Negro AGILE COACH.CONSULAR OFFICER Work Phone: [facility] 12-02-2021 11:27-0400 Diastolic blood pressure 76 mm[Hg] Hastings Negro AGILE COACH.CONSULAR OFFICER Work Phone: [facility] 12-02-2021 11:27-0400 Heart rate 58 /min 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 AGILE COACH.CONSULAR OFFICER Work Phone: [facility] 12-02-2021 11:27-0400 Systolic blood pressure 149 mm[Hg] Hastings Negro AGILE COACH.CONSULAR OFFICER Work Phone: [facility] 10-21-2021 13:07-0400 Body weight 77.29 kg Ayesha Zurawick AGILE COACH.CONSULAR OFFICER Work Phone: [facility] 10-21-2021 13:07-0400 Diastolic blood pressure 64 mm[Hg] Ayesha Zurawick AGILE COACH.CONSULAR OFFICER Work Phone: [facility] 10-21-2021 13:07-0400 Heart rate 68 /min Ayesha Zurawick AGILE COACH.CONSULAR OFFICER Work Phone: [facility] 10-21-2021 13:07-0400 Respiratory rate 18 /min Ayesah Zurawick AGILE COACH.CONSULAR OFFICER Work Phone: [facility] 10-21-2021 13:07-0400 Systolic blood pressure 124 mm[Hg] Ayesha Zurawick AGILE COACH.CONSULAR OFFICER Work Phone: [facility] 09-24-2021 12:51-0400 Body weight 77.11 kg Radha Rhiannon AGILE COACH.CONSULAR OFFICER Work Phone: [facility] 09-24-2021 12:51-0400 Diastolic blood pressure 86 mm[Hg] Radha Rhiannon AGILE COACH.CONSULAR OFFICER Work Phone: [facility] 09-24-2021 12:51-0400 Heart rate 54 /min Radha Jurado AGILE COACH.CONSULAR OFFICER Work Phone: [facility] 09-24-2021 12:51-0400 Respiratory rate 16 /min Radha Jurado AGILE COACH.CONSULAR OFFICER Work Phone: [facility] 09-24-2021 12:51-0400 SaO2% (BldA) [Mass fraction] 97 % Radha Jurado AGILE COACH.CONSULAR OFFICER Work Phone: [facility] 09-24-2021 12:51-0400 Systolic blood pressure 142 mm[Hg] Radhazenobia Jurado AGILE COACH.CONSULAR OFFICER Work Phone: [facility] Encounters Encounter Date Encounter Type Care Provider Facility Start: 01-28-2025 ambulatory Sar[facility] Facility:[facility] Start: 01-28-2025 End: 01-28-2025 ambulatory Srinath Bustos Facility:[facility] Start: 01-20-2025 End: 01-20-[address] Srinath Bustos MD -[facility] Work Phone: Start: 01-20-2025 End: 01-20-[address] Vini Sparks DO Work Phone: -[facility] Start: 01-20-2025 End: 01-20-2025 ambulatory [facility] Facility:[facility] Start: 01-16-2025 End: 01-16-[address] Srinath Bustos MD -[facility] Work Phone: Start: 01-16-2025 End: 01-16-[address] Vini Sparks DO Work Phone: -[facility] Start: 01-13-2025 ambulatory Vini Marin y:[facility] Start: 01-13-2025 Non-patient / Non-visit Dr. Felisha SIMMS -[facility] Start: 01-13-2025 End: 01-13-[address] iVni Sparks DO Work Phone: -[facility] Start: 01-13-2025 End: 01-13-2025 Patient encounter procedure Sarah Garcia PA -[facility] Work Phone: Start: 01-13-2025 End: 01-13-2025 ambulatory Sarah PEARCE Facility:[facility] Start: 01-10-2025 ambulatory ELISSA NEGRO Facilit y:[facility] Start: 12-17-2024 End: 12-17-2024 ambulatory Liane Mosher MA [facility] Start: 12-17-2024 End: 12-17-2024 Patient encounter procedure Liane Mosher MA [facility] Comment on above: Population Health Na vigation Outreach ([place] ) Start: 12-12-2024 End: 12-12-2024 Patient encounter procedure Sarah PEARCE -[facility] Work Phone: Start: 12-12-2024 End: 12-12-[address] Vini Sparks DO Work Phone: -[facility] Start: 11-05-2024 End: 11-05-2024 Refill Vini Sparks DO Work Phone: [facility] Comment on above: Refill Request Start: 10-15-2024 End: 10-15-[address] Srinath Bustos MD -[facility] Work Phone: Start: 10-15-2024 End: 10-15-[address] Vini Sparks DO Work Phone: -[facility] Start: 10-10-2024 End: 10-10-2024 ambulatory VINI SPARKS Facility:[facility] Start: 09-26-2024 End: 10-17-2024 Telephone encounter Vini Sparks DO Work Phone: [facility] Comment on above: Medication Request Start: 09-18-2024 End: 09-18-2024 Refill Vini Sparks DO Work Phone: [facility] Comment on above: Refill Request Start: 09-17-2024 End: 09-17-2024 Telephone encounter Vini Fuenteson DO Work Phone: [facility] Start: 09-16-2024 End: 09-16-2024 Follow-up encounter Ayesha Tran APRN.CONSULAR OFFICER Work Phone: [facility] Start: 09-16-2024 End: 09-16-2024 ambulatory VINI SPARKS Facility:[facility] Start: 09-14-2024 End: 09-14-2024 ambulatory AYESHA TRAN Facility:[facility] Start: 09-12-2024 End: 09-13-2024 Follow-up encounter Ayesha Tran AGILE COACH.CONSULAR OFFICER Work Phone: [facility] Comment on above: Results Start: 09-04-2024 End: 09-13-2024 Telephone encounter Vini Fuenteson DO Work Phone: [facility] Comment on above: Medication Problem; cost of Eliquis Start: 08-29-2024 End: 08-29-2024 ambulatory VINI MICHELRISON Facility:[facility] Start: 08-28-2024 End: 08-28-2024 Telephone encounter Vini Fuenteson DO Work Phone: [facility] Start: 08-28-2024 End: 08-28-2024 ambulatory VINI FUENTESON Facility:[facility] Start: 08-28-2024 End: 08-28-2024 Patient encounter procedure Vini Michelrison DO Work Phone: [facility] Comment on above: Medicare annual well ness visit, subsequent (Primary Dx); HYPERTENSION BENIGN; Carotid atherosclerosis, bilateral; Palpitations; PALMA (generalized anxiety disorder); Dysthymia; Other chest pain; Melena; Chronic pain of both knees; History of total knee arthroplasty, bilateral; Chronic atrial fibrillation (HCC); Atrial fibrillation, unspecified type (HCC) Start: 07-11-2024 End: 07-11-2024 ambulatory VINI SPARKS Facility:[facility] Start: 07-11-2024 End: 07-11-2024 Office outpatient visit 25 minutes Siva Knapp MD Work Phone: [facility] [place] Comment on above: PALMA (generalized anx iety disorder) (Primary Dx); Dysthymia Start: 07-10-2024 End: 07-10-2024 ambulatory Chikis Leone RN NURSE SOFTWARE DEVELOPMENT ANALYST Comment on above: Anxiety Start: 07-10-2024 End: 07-10-2024 Patient encounter procedure Dorita Hopkins MA [facility] Comment on above: Population Health Na vigation Outreach ([facility] ) Start: 03-04-2024 End: 03-04-2024 ambulatory Owen Lopez RN Work Phone: [employer] Start: 02-29-2024 End: 03-05-2024 Telephone encounter Vini Sparks DO Work Phone: [facility] Comment on above: clarify directions o n Sertraline 100 mg rx Start: 02-28-2024 End: 02-28-2024 Telephone encounter Vini Sparks DO Work Phone: [facility] Comment on above: Medication Problem Start: 02-26-2024 End: 02-26-2024 Refill Vini Fuenteson DO Work Phone: [facility] [place] Comment on above: Med Change Request Start: 02-26-2024 End: 02-26-2024 Patient encounter procedure Vini Fuenteson DO Work Phone: [facility] [place] Comment on above: Hypothyroidism, acqu ired (Primary Dx); HYPERTENSION BENIGN; Need for influenza vaccination; Dyslipidemia; Dysthymia; Need for COVID-19 vaccine; Depression, recurrent (HCC); Vitamin B12 deficiency; Vitamin D deficiency; Hyperglycemia; Fatigue, unspecified type Start: 02-26-2024 End: 02-26-2024 ambulatory VINI SPARKS Facility:[facility] Start: 02-19-2024 End: 02-19-2024 ambulatory VINI SPARKS Facility:[facility] Start: 02-09-2024 End: 02-12-2024 Refill Vini Fuenteson DO Work Phone: [facility] [place] Comment on above: Refill Request Lab Orders Start: 01-27-2024 End: 01-27-2024 ambulatory Owen Lopez RN Work Phone: [employer] Comment on above: community monitoring outreach (CDM telephonic) Start: 01-11-2024 End: 01-12-2024 Telephone encounter 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 APRN.CNP Work Phone: Hematology/Oncology Start: 01-10-2024 End: 01-11-2024 Documentation procedure Mammography Coordinator [facility] Department Start: 01-10-2024 End: 01-11-2024 Letter encounter Mammography Coordinator [facility] Start: 01-08-2024 End: 01-08-2024 Subsequent hospital visit by physician Screen Mammo [facility] Mamm[facility] Comment on above: Personal history of breast cancer [Z85.3] Start: 12-29-2023 End: 12-29-2023 ambulatory Owen Lopez RN Work Phone: [employer] Comment on above: community monitoring outreach (CDM telephonic) Start: 12-20-2023 End: 12-20-2023 ambulatory Owen Lopez RN Work Phone: [employer] Comment on above: community monitoring outreach (CDM telephonic) Start: 12-04-2023 End: 12-04-2023 Telephone encounter Vini Eulalio Sparks Work Phone: [facility] Comment on above: Patient Update Start: 12-04-2023 End: 12-04-2023 ambulatory 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 APRN.CNP Work Phone: Hematology/Oncology Comment on above: Personal history of breast cancer (Primary Dx); Encounter for screening mammogram for high-risk patient Start: 12-04-2023 End: 12-04-2023 Patient encounter procedure Elisas Negro APRN.CNP Work Phone: Hematology/Oncology Start: 11-23-2023 ambulatory Owen Echavarria Work Phone: [employer] Comment on above: community monitoring outreach (CDM telephonic) Start: 11-17-2023 Refill Vini vicente DO Work Phone: [facility] [place] Comment on above: Refill Request Start: 10-26-2023 ambulatory Owen Garcia Piar R N Work Phone: [employer] Comment on above: community monitoring outreach (CDM telephonic) Start: 10-20-2023 Refill Vini vicente DO Work Phone: [facility] [place] Comment on above: Refill Request Start: 10-11-2023 ambulatory Owen Garcia Piar R N Work Phone: [employer] Comment on above: community monitoring outreach (CDM telephonic) Start: 09-13-2023 ambulatory Owen Garcia Piar R N Work Phone: [employer] Comment on above: community monitoring outreach (CDM telephonic) Refill Request Start: 08-23-2023 Telephone encounter Ayesha vicente AGILE COACH.CONSULAR OFFICER Work Phone: [facility] Comment on above: Results Start: 08-22-2023 End: 08-22-2023 Patient encounter procedure Vini Sparks DO Work Phone: [facility] Comment on above: Dyslipidemia (Primar y Dx); Dysthymia; Essential hypertension, benign; Hypothyroidism, acquired; Vitamin D deficiency; Vitamin B12 deficiency; Hyperglycemia; Depression, recurrent (HCC); Personal history of alcoholism (HCC); 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 in female, estrogen receptor positive (HCC) Start: 08-16-2023 ambulatory Owen Garcia Chrissar R N Work Phone: [employer] Comment on above: community monitoring outreach (CDM telephonc) Start: 08-02-2023 ambulatory Owen G Chrissar R N Work Phone: [employer] Comment on above: community monitoring outreach (CDM telephonic) Refill Request Start: 07-05-2023 ambulatory Owen Garcia Piar R N Work Phone: [employer] Comment on above: community monitoring outreach (CDM telephonic) Start: 06-30-2023 Telephone encounter Gray duran AGILE COACH.CONSULAR OFFICER Work Phone: [facility] Comment on above: Results Start: 06-29-2023 End: 06-29-2023 Patient encounter procedure Patience Winter AGILE COACH.CONSULAR OFFICER Work Phone: [facility] Comment on above: Viral URI with cough (Primary Dx); Exposure to COVID-19 virus Start: 05-23-2023 ambulatory Owen Lopez R N Work Phone: [employer] Comment on above: community monitoring outreach (CD telephonic) Start: 03-21-2023 ambulatory Owen Lopez R N Work Phone: [employer] Comment on above: community monitoring outreach (CD telephonic) Start: 03-20-2023 Refill Radha Stnickishayla tess AGILE COACH.CONSULAR OFFICER Work Phone: [facility] [place] Comment on above: Refill Request Start: 02-14-2023 Telephone encounter Elissa Ja milian AGILE COACH.CONSULAR OFFICER Work Phone: Hematology/Oncology Comment on above: Refill Request Start: 02-13-2023 End: 02-13-2023 Patient encounter procedure Susanna Laguna AGILE COACH.CONSULAR OFFICER Work Phone: [facility] [place] Comment on above: Encounter for immuni zation (Primary Dx) Start: 02-07-2023 Refill Ava muñoz PA-C Work Phone: [facility] [place] Comment on above: Refill Request Start: 02-01-2023 Refill Vini Calderon son DO Work Phone: [facility] [place] Comment on above: Refill Request Start: 01-31-2023 ambulatory Owen Lopez R N Work Phone: [employer] Comment on above: community monitoring outreach (CD telephonic) Start: 01-10-2023 Telephone encounter Patience Andre AGILE COACH.CONSULAR OFFICER Work Phone: [facility] Comment on above: Results Start: 01-09-2023 End: 01-09-2023 Subsequent hospital visit by physician Xr [facility] [place] Work Phone: Radiology Comment on above: Acute cough [R05.1] Start: 01-06-2023 Refill Vini vicente DO Work Phone: [facility] Comment on above: Refill Request Results Start: 01-05-2023 End: 01-05-2023 Subsequent hospital visit by physician Screen Mammo [facility] Mamm[facility] Comment on above: 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, estrogen receptor positive (HCC) [C50.112, Z17.0] Start: 01-03-2023 ambulatory Owen Lopez R N Work Phone: [employer] Comment on above: community monitoring outreach (CDM telephonic) Start: 12-06-2022 ambulatory Owen Lopez R N Work Phone: [employer] Comment on above: community monitoring outreach (CDM telephonic) Start: 12-05-2022 Refill Vini vicente DO Work Phone: [facility] Comment on above: Refill Request Start: 12-02-2022 End: 12-02-2022 ambulatory 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 APRN.CONSULAR OFFICER Work Phone: Hematology/Oncology Comment on above: 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, estrogen receptor positive (HCC) (Primary Dx); Encounter for screening mammogram for high-risk patient; Depression, recurrent (HCC) Start: 12-02-2022 End: 12-02-2022 Patient encounter procedure 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 AGILE COACH.CONSULAR OFFICER Work Phone: [place] [facility] Start: 11-11-2022 ambulatory Owen Lopez R N Work Phone: [employer] Comment on above: community monitoring outreach (CDM telephonic) Start: 10-14-2022 ambulatory Owen Lopez R N Work Phone: [employer] Comment on above: community monitoring outreach (CDM telephonic) Start: 10-04-2022 Refill Vini vicente DO Work Phone: [facility] Comment on above: Refill Request Start: 09-28-2022 Refill Vini vicente DO Work Phone: [facility] Comment on above: Refill Request Start: 09-15-2022 ambulatory Owen Lopez R N Work Phone: [employer] Comment on above: community monitoring outreach (CDM telephonic) Start: 08-18-2022 ambulatory Owen Banerjeear R N Work Phone: [employer] Comment on above: community monitoring outreach (CDM telephonic) Start: 08-16-2022 Telephone encounter Vini jimenes DO Work Phone: [facility] Comment on above: Results Start: 08-15-2022 End: 08-15-2022 Patient encounter procedure Vini Sparks DO Work Phone: [facility] Comment on above: Essential hypertensi on, benign (Primary Dx); Dyslipidemia; Hypothyroidism, acquired; Hyperkalemia; Vitamin B12 deficiency; Vitamin D deficiency; Hyperglycemia; Personal history of alcoholism (HCC); PALMA (generalized anxiety disorder); 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 in female, estrogen receptor positive (HCC); Depression, recurrent (HCC) Start: 08-09-2022 Refill Vini vicente DO Work Phone: [facility] Comment on above: Refill Request Start: 08-03-2022 ambulatory Owen Lopez R N Work Phone: [employer] Comment on above: community monitoring outreach (CDM telephonic) Start: 07-27-2022 ambulatory rEik Smith RN NURSE SOFTWARE DEVELOPMENT ANALYST Comment on above: Patient Update Start: 07-18-2022 Refill Radha pulido APRN.CNP Work Phone: [facility] Comment on above: Refill Request Start: 07-06-2022 ambulatory Owen Lopez R N Work Phone: [employer] Comment on above: community monitoring outreach (CDM telephonic) Start: 06-13-2022 End: 06-13-2022 Patient encounter procedure Radha Rhiannon AGILE COACH.CONSULAR OFFICER Work Phone: [facility] [place] Comment on above: Dysthymia Start: 05-19-2022 Telephone encounter Vini jimenes DO Work Phone: Internal [facility] [place] Comment on above: Insurance Authorizat ion Start: 05-16-2022 Transcribe Orders Ciara Marcelo MA Patient Services Comment on above: Malignant neoplasm o f central portion of left breast (HCC) (Primary Dx) Start: 05-12-2022 ambulatory Liliana Love RN Work Phone: NURSE SOFTWARE DEVELOPMENT ANALYST Comment on above: [employer]ings Start: 05-03-2022 Telephone encounter Elissa milian AGILE COACH.CONSULAR OFFICER Work Phone: Hematology/Oncology Comment on above: Orders Start: 04-27-2022 ambulatory Peace Hylton RN Work Phone: [employer] Comment on above: cdm (enrollment) Start: 04-25-2022 Refill Vini Calderon jules DO Work Phone: [facility] [place] Comment on above: Refill Request Start: 02-02-2022 Telephone encounter Vini jimenes DO Work Phone: [facility] [place] Comment on above: Results Start: 01-31-2022 Telephone encounter Ayesha honeycutt AGILE COACH.CONSULAR OFFICER Work Phone: Family [facility] [place] Comment on above: Results Start: 01-27-2022 Telephone encounter Ayesha honeycutt AGILE COACH.CONSULAR OFFICER Work Phone: [facility] [place] Comment on above: Results Start: 01-21-2022 End: 01-21-2022 Patient encounter procedure Ayesha Jfeferson AGILE COACH.CONSULAR OFFICER Work Phone: [facility] [place] Comment on above: HYPERTENSION BENIGN (Primary Dx); Encounter for immunization; PALMA (generalized anxiety disorder); Headaches; Dyslipidemia; Hypothyroidism, acquired; Fatigue, unspecified type Start: 01-18-2022 End: 01-18-2022 Emergency department patient visit VINI Christianson:[facility] Start: 01-18-2022 Telephone encounter Vini jimenes DO Work Phone: [facility] [place] Comment on above: Headache; Hypertensi on Start: 01-17-2022 End: 01-17-2022 Emergency department patient visit VINI SPARKS Facility:[facility] Start: 01-03-2022 End: 01-03-2022 Patient encounter procedure Ashley Flores APRN.CONSULAR OFFICER Work Phone: [facility] [place] Comment on above: HYPERTENSION BENIGN (Primary Dx); Ear foreign body, left, initial encounter Start: 01-03-2022 ambulatory Vini vicente DO Work Phone: [facility] [place] Comment on above: Hypertension Start: 12-31-2021 Documentation procedure Mammog arlin Coordinator [facility] Start: 12-31-2021 Letter encounter Mammography Coordinator [facility] Start: 12-31-2021 Telephone encounter Elissa milian APRN.CONSULAR OFFICER Work Phone: Hematology/Oncology Comment on above: Results Start: 12-31-2021 End: 12-31-2021 Subsequent hospital visit by physician Screen Mammo [facility] Mamm[facility] Comment on above: 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, estrogen receptor positive (HCC) [C50.112, Z17.0] Start: 12-14-2021 End: 12-14-2021 Patient encounter procedure Vini Sparks DO Work Phone: [facility] [place] Comment on above: Anxious mood (Primar y Dx); Osteopenia, senile; Disorder of bone and articular cartilage; Disorder of bone density and structure, unspecified; Other specified disorders of bone density and structure, multiple sites ; Dysthymia; Vitamin D deficiency; HYPERTENSION BENIGN; Dyslipidemia; Hypothyroidism, acquired; Fatigue, unspecified type Start: 12-02-2021 End: 12-02-2021 ambulatory 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 AGILE COACH.CONSULAR OFFICER Work Phone: Hematology/Oncology Comment on above: 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, estrogen receptor positive (HCC) (Primary Dx); Encounter for screening mammogram for high-risk patient Start: 12-02-2021 End: 12-02-2021 Patient encounter procedure 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 AGILE COACH.CONSULAR OFFICER [facility] Start: 10-22-2021 Telephone encounter Ayesha Reeder yinka AGILE COACH.CONSULAR OFFICER Work Phone: [facility] Comment on above: Results Start: 10-21-2021 End: 10-21-2021 Patient encounter procedure Ayesha Jefferson AGILE COACH.CONSULAR OFFICER Work Phone: [facility] Comment on above: Anxious mood (Primar y Dx); Excessive sweating; Dysthymia; Vitamin D deficiency Start: 10-11-2021 Refill Vini vicente DO Work Phone: [facility] Comment on above: Refill Request Start: 09-29-2021 Telephone encounter Ayesha honeycutt AGILE COACH.CONSULAR OFFICER Work Phone: [facility] Comment on above: Results Start: 09-24-2021 End: 09-24-2021 Patient encounter procedure [facility] Start: 09-24-2021 Telephone encounter Radha Machado AGILE COACH.CONSULAR OFFICER Work Phone: [facility] Comment on above: Results Start: 09-24-2021 End: 09-24-2021 Patient encounter procedure Radha Jurado AGILE COACH.CONSULAR OFFICER Work Phone: [facility] Comment on above: Transient cerebral i schemia, unspecified type (Primary Dx); Generalized weakness; Aphasia; Blurred vision Procedures Date Procedure Procedure Detail Performing Clinician Start: 01-13-2025 Cardiovascular stres s test using pharmacologic stress agent Dr. Vini Sparks DO Work Phone: Start: 08-28-2024 Ecg routine ecg w/le ast 12 lds i&r only Vini Sparks DO Work Phone: Start: 02-26-2024 [email or web address] COVI D-19 VACCINE AGE 12+ YR (COMIRNATY) Vini Sparks DO Work Phone: Start: 02-13-2023 [email or web address] COVI D-19 VACCINE ( SEASON) AGE 12+ YR Susanna Older AGILE COACH.CONSULAR OFFICER Work Phone: Start: 01-09-2023 Radiologic exam ches t 2 views Brendon Dong MD Work Phone: Start: 01-05-2023 Screening digital br east tomosynthesis bi 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 AGILE COACH.CONSULAR OFFICER Work Phone: Start: 01-21-2022 INFLUENZA SEASONAL QUADRIVALENT HIGH DOSE AGE 65+ Ayesha Li AGILE COACH.CONSULAR OFFICER Work Phone: Start: 12-31-2021 AMBROSE SCREENING W [facility]ACIO Da rbtavon Negro AGILE COACH.CONSULAR OFFICER Work Phone: Start: 09-24-2021 CT of head without contrast Plan of Treatment Date Care Activity Detail Author Start: 08-30-2027 [facility] Start: 02-18-2027 Diabetes Screening Diabetes Screenin g [facility] Start: 08-21-2026 Diabetes Screening Diabetes Screenin g [facility] Start: 02-13-2026 [facility] Start: 08-28-2025 Medicare Annual Well ness Visit Medicare Annual Wellness Visit [facility] Start: 08-15-2025 DIABETES SCREEN DIABETES SCREEN [facility] Start: 08-15-2025 Diabetes Screening Diabetes Screenin g [facility] Start: 02-28-2025 End: 02-28-2025 Patient encounter procedure 02/28/2025 12:40 PM EST Office Visit Family [facility] [place] [address] [facility] [place] [id number] Vini Sparks DO [address] [facility] [place] [address] Follow up 6 months Family [facility] [place] Comment on above: Follow up 6 months Start: 01-28-2025 DIABETES SCREEN DIABETES SCREEN [facility] Start: 01-21-2025 DIABETES SCREEN DIABETES SCREEN [facility] Start: 01-20-2025 End: 01-20-2025 ambulatory 01/20/2025 11:00 AM EDT Visit (SP) Office Hematology/Oncology [address] [place] [address] 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 APRN.CONSULAR OFFICER [address] [place] [address] 1 YR OV/MAMM 01/10* Hematology/Oncology Comment on above: 1 YR OV/MAMM 01/10* Start: 01-20-2025 End: 01-20-2025 Evaluation of diagnostic study results [facility] Start: 01-17-2025 DIABETES SCREEN DIABETES SCREEN [facility] Start: 01-16-2025 Complete blood count [facility] Start: 01-16-2025 Evaluation of diagno stic study results [facility] Start: 01-16-2025 Thyroid stimulating hormone measurement [facility] Start: 01-16-2025 Thyroxine measurement [facility] Start: 01-10-2025 End: 02-09-2025 DBT Breast - bilateral screening AMBROSE SCREENING W [facility] Radiology Routine 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 in female, estrogen receptor positive (HCC) Encounter for screening mammogram for high-risk patient Expected: 01/10/2025 (Approximate), Expires: 02/09/2025 [facility] Work Phone: Comment on above: Expected: 01/10/2025 (Approximate), Expires: 02/09/2025 Start: 01-10-2025 End: 01-10-2025 Patient encounter procedure 01/10/2025 11:10 AM EDT Appointment Mammogram [address] [place] [address] 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 in female, estrogen receptor positive (HCC) [C50.112, Z17.0]; Encounter for screening mammogram for high-risk patient [Z12.31] Mammogram Comment on above: 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, estrogen receptor positive (HCC) [C50.112, Z17.0]; Encounter for screening mammogram for high-risk patient [Z12.31] Start: 12-16-2024 Influenza vaccination Influenza Vacc ine (#1) [facility] Start: 10-21-2024 DIABETES SCREEN DIABETES SCREEN [facility] Start: 10-15-2024 Evaluation of diagno stic study results [facility] Start: 10-15-2024 Evaluation of diagno stic study results [facility] Start: 10-10-2024 End: 10-10-2024 Patient encounter procedure 10/10/2024 12:30 PM EDT Office Visit Vasculary Surgery [address] [place] [address] Carotid atherosclerosis, 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] Vasculary Surgery Comment on above: Carotid atherosclero sis, 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] Start: 09-16-2024 End: 09-16-2024 Patient encounter procedure 09/16/2024 1:00 PM EDT Office Visit Cardiology [address] [place] [address] Palpitations [R00.2] Cardiology Comment on above: Palpitations [R00.2] Start: 09-12-2024 End: 12-12-2024 Potassium [Moles/volume] in Serum or Plasma POTASSIUM Lab Routine Hyperkalemia Expected: 09/12/2024, Expires: 12/12/2024 [facility] Work Phone: Comment on above: Expected: 09/12/2024 , Expires: 12/12/2024 Start: 08-28-2024 End: 08-28-2024 Patient encounter procedure 08/28/2024 12:00 PM EDT Office Visit [facility] [place] [address] [place] [address] Vini Sparks DO [address] [facility] [place] [address] Medicare Wellness [facility] [place] Comment on above: Medicare Wellness Start: 08-25-2024 End: 11-24-2024 25-hydroxyvitamin D3 [Mass/volume] in Serum or Plasma VITAMIN D 25 HYDROXY Lab Routine Vitamin D deficiency Expected: 08/25/2024, Expires: 11/24/2024 [facility] Comment on above: Expected: 08/25/2024 , Expires: 11/24/2024 Start: 08-25-2024 End: 11-24-2024 CBC panel - Blood by Automated count COMPLETE BLOOD COUNT Lab Routine Hypothyroidism, acquired Expected: 08/25/2024, Expires: 11/24/2024 [facility] Comment on above: Expected: 08/25/2024 , Expires: 11/24/2024 Start: 08-25-2024 End: 11-24-2024 Cobalamin (Vitamin B12) [Mass/volume] in Serum or Plasma VITAMIN B12 Lab Routine Vitamin B12 deficiency Expected: 08/25/2024, Expires: 11/24/2024 [facility] Comment on above: Expected: 08/25/2024 , Expires: 11/24/2024 Start: 08-25-2024 End: 11-24-2024 Comprehensive metabolic 2000 panel - Serum or Plasma COMPREHENSIVE METABOLIC PANEL Lab Routine Hypothyroidism, acquired Expected: 08/25/2024, Expires: 11/24/2024 [facility] Comment on above: Expected: 08/25/2024 , Expires: 11/24/2024 Start: 08-25-2024 Covid-19 Vaccine () Covid-19 Vaccine () [facility] Start: 08-25-2024 End: 11-24-2024 Hemoglobin A1c in Blood HEMOGLOBIN A1C Lab Routine Hyperglycemia Expected: 08/25/2024, Expires: 11/24/2024 [facility] Comment on above: Expected: 08/25/2024 , Expires: 11/24/2024 Start: 08-25-2024 End: 11-24-2024 Lipid 1996 panel - Serum or Plasma LIPID PANEL BASIC Lab Routine Dyslipidemia Expected: 08/25/2024, Expires: 11/24/2024 [facility] Comment on above: Expected: 08/25/2024 , Expires: 11/24/2024 Start: 08-25-2024 End: 11-24-2024 Thyrotropin [Units/volume] in Serum or Plasma THYROID STIMULATING HORMONE Lab Routine Hypothyroidism, acquired Expected: 08/25/2024, Expires: 11/24/2024 [facility] Work Phone: Comment on above: Expected: 08/25/2024 , Expires: 11/24/2024 Start: 08-25-2024 End: 11-24-2024 Thyroxine (T4) free [Mass/volume] in Serum or Plasma T4 FREE/FREE THYROXINE Lab Routine Hypothyroidism, acquired Expected: 08/25/2024, Expires: 11/24/2024 [facility] Comment on above: Expected: 08/25/2024 , Expires: 11/24/2024 Start: 08-21-2024 Covid-19 Vaccine () Covid-19 Vaccine () [facility] Comment on above: Postponed from (Declined at this time) Start: 07-11-2024 End: 07-11-2024 Patient encounter procedure 07/11/2024 2:20 PM EDT Office Visit [facility] [place] [address] [place] [id number] Siva Knapp MD [address] [facility] [place], [place] [id number] Anxiety [facility] [place] Comment on above: Anxiety Start: 03-15-2024 DIABETES SCREEN DIABETES SCREEN [facility] Start: 02-26-2024 End: 02-26-2024 Patient encounter procedure 02/26/2024 10:40 AM EST Office Visit [facility] [place] [address] [place] [address] Vini Sparks DO [address] [facility] [place] [address] 6 month follow up [facility] [place] Comment on above: 6 month follow up Start: 02-10-2024 End: 05-11-2024 25-hydroxyvitamin D3 [Mass/volume] in Serum or Plasma VITAMIN D 25 HYDROXY Lab Routine Vitamin D deficiency Expected: 02/10/2024, Expires: 05/11/2024 [facility] Comment on above: Expected: 02/10/2024 , Expires: 05/11/2024 Start: 02-10-2024 End: 05-11-2024 CBC W Auto Differential panel - Blood COMPLETE BLOOD COUNT AND DIFFERENTIAL Lab Routine Dyslipidemia Expected: 02/10/2024, Expires: 05/11/2024 [facility] Comment on above: Expected: 02/10/2024 , Expires: 05/11/2024 Start: 02-10-2024 End: 05-11-2024 Cobalamin (Vitamin B12) [Mass/volume] in Serum or Plasma VITAMIN B12 Lab Routine Vitamin B12 deficiency Expected: 02/10/2024, Expires: 05/11/2024 [facility] Comment on above: Expected: 02/10/2024 , Expires: 05/11/2024 Start: 02-10-2024 End: 05-11-2024 Comprehensive metabolic 2000 panel - Serum or Plasma COMPREHENSIVE METABOLIC PANEL Lab Routine Dyslipidemia Expected: 02/10/2024, Expires: 05/11/2024 [facility] Work Phone: Comment on above: Expected: 02/10/2024 , Expires: 05/11/2024 Start: 02-10-2024 End: 05-11-2024 Lipid 1996 panel - Serum or Plasma LIPID PANEL BASIC Lab Routine Dyslipidemia Expected: 02/10/2024, Expires: 05/11/2024 [facility] Comment on above: Expected: 02/10/2024 , Expires: 05/11/2024 Start: 02-10-2024 End: 05-11-2024 Thyrotropin [Units/volume] in Serum or Plasma THYROID STIMULATING HORMONE Lab Routine Hypothyroidism, acquired Expected: 02/10/2024, Expires: 05/11/2024 [facility] Comment on above: Expected: 02/10/2024 , Expires: 05/11/2024 Start: 02-10-2024 End: 05-11-2024 Thyroxine (T4) free [Mass/volume] in Serum or Plasma T4 FREE/FREE THYROXINE Lab Routine Hypothyroidism, acquired Expected: 02/10/2024, Expires: 05/11/2024 [facility] Comment on above: Expected: 02/10/2024 , Expires: 05/11/2024 Start: 01-08-2024 End: 01-08-2024 Patient encounter procedure 01/08/2024 11:30 AM EDT Appointment Mammogram [address] [place] [address] Right- Personal history of breast cancer [Z85.3]; Encounter for screening mammogram for high-risk patient [Z12.31] Mammogram Comment on above: Right- Personal hist ory of breast cancer [Z85.3]; Encounter for screening mammogram for high-risk patient [Z12.31] Start: 12-17-2023 Covid-19 Vaccine ( season) Covid-19 Vaccine () [facility] Start: 12-17-2023 Covid-19 Vaccine () Covid-19 Vaccine () [facility] Start: 12-17-2023 Influenza vaccination Influenza Vacc ine (#1) [facility] Start: 12-04-2023 End: 12-04-2023 ambulatory 12/04/2023 11:30 AM EDT Visit (SP) Office Hematology/Oncology [address] [place] [id number] 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 APRN.CONSULAR OFFICER [address] [place] [id number] 1 YR OV/MAMM 01/05/23* Hematology/Oncology Comment on above: 1 YR OV/MAMM 01/05/23 * Start: 08-22-2023 End: 11-21-2023 25-hydroxyvitamin D3 [Mass/volume] in Serum or Plasma [facility] Work Phone: Comment on above: Expected: 08/22/2023 , Expires: 11/21/2023 Start: 08-22-2023 End: 11-21-2023 Hemoglobin A1c in Blood [facility] Comment on above: Expected: 08/22/2023 , Expires: 11/21/2023 Start: 08-22-2023 End: 08-22-2023 Patient encounter procedure 08/22/2023 10:40 AM EDT Office Visit [facility] [address] [place], [place] [id number] Vini Sparks DO [address] [place] [address] 6 month follow up [facility] Comment on above: 6 month follow up Start: 06-15-2023 Covid-19 Vaccine () Covid-19 Vaccine () [facility] Start: 02-15-2023 End: 04-17-2023 25-hydroxyvitamin D3 [Mass/volume] in Serum or Plasma VITAMIN D 25 HYDROXY Lab Routine Vitamin D deficiency Expected: 02/15/2023, Expires: 04/17/2023 [facility] Work Phone: Comment on above: Expected: 02/15/2023 , Expires: 04/17/2023 Start: 02-15-2023 End: 04-17-2023 CBC panel - Blood by Automated count CBC Lab Routine Essential hypertension, benign Dyslipidemia Expected: 02/15/2023, Expires: 04/17/2023 [facility] Work Phone: Comment on above: Expected: 02/15/2023 , Expires: 04/17/2023 Start: 02-15-2023 End: 04-17-2023 Comprehensive metabolic 2000 panel - Serum or Plasma COMP METABOLIC PANEL Lab Routine Essential hypertension, benign Dyslipidemia Expected: 02/15/2023, Expires: 04/17/2023 [facility] Work Phone: Comment on above: Expected: 02/15/2023 , Expires: 04/17/2023 Start: 02-15-2023 End: 04-17-2023 Hemoglobin A1c in Blood HGB A1C Lab Routine Hyperglycemia Expected: 02/15/2023, Expires: 04/17/2023 [facility] Work Phone: Comment on above: Expected: 02/15/2023 , Expires: 04/17/2023 Start: 02-15-2023 End: 04-17-2023 Lipid 1996 panel - Serum or Plasma LIPID PANEL BASIC Lab Routine Essential hypertension, benign Expected: 02/15/2023, Expires: 04/17/2023 [facility] Work Phone: Comment on above: Expected: 02/15/2023 , Expires: 04/17/2023 Start: 02-15-2023 End: 04-17-2023 Thyrotropin [Units/volume] in Serum or Plasma TSH BLD Lab Routine Hypothyroidism, acquired Expected: 02/15/2023, Expires: 04/17/2023 [facility] Work Phone: Comment on above: Expected: 02/15/2023 , Expires: 04/17/2023 Start: 02-15-2023 End: 04-17-2023 Thyroxine (T4) free [Mass/volume] in Serum or Plasma T4 FREE/FREE THYROX Lab Routine Hypothyroidism, acquired Expected: 02/15/2023, Expires: 04/17/2023 [facility] Work Phone: Comment on above: Expected: 02/15/2023 , Expires: 04/17/2023 Start: 01-21-2023 Urine microalbumin profile [facility] Comment on above: Postponed from 08/17 (Declined at this time) Start: 12-31-2022 Shingrix Vaccine (2 of 2) Cohn grix Vaccine (2 of 2) [facility] Start: 12-16-2022 Covid-19 Vaccine (2022- season) Covid-19 Vaccine (2022- season) [facility] Start: 12-16-2022 Influenza vaccination C [facility] Start: 08-15-2022 End: 10-15-2022 CBC W Auto Differential panel - Blood [facility] Work Phone: Comment on above: Expected: 08/15/2022 , Expires: 10/15/2022 Start: 08-15-2022 End: 10-15-2022 Cobalamin (Vitamin B12) [Mass/volume] in Serum or Plasma [facility] Work Phone: Comment on above: Expected: 08/15/2022 , Expires: 10/15/2022 Start: 08-15-2022 End: 10-15-2022 Comprehensive metabolic 2000 panel - Serum or Plasma [facility] Work Phone: Comment on above: Expected: 08/15/2022 , Expires: 10/15/2022 Start: 08-15-2022 End: 10-15-2022 Thyrotropin [Units/volume] in Serum or Plasma [facility] Work Phone: Comment on above: Expected: 08/15/2022 , Expires: 10/15/2022 Start: 08-15-2022 End: 10-15-2022 Thyroxine (T4) free [Mass/volume] in Serum or Plasma [facility] Work Phone: Comment on above: Expected: 08/15/2022 , Expires: 10/15/2022 Start: 06-14-2022 End: 08-14-2022 25-hydroxyvitamin D3 [Mass/volume] in Serum or Plasma VITAMIN D 25 HYDROXY Lab Routine Vitamin D deficiency Fatigue, unspecified type Expected: 06/14/2022, Expires: 08/14/2022 [facility] Work Phone: Comment on above: Expected: 06/14/2022 , Expires: 08/14/2022 Start: 06-14-2022 End: 08-14-2022 CBC panel - Blood by Automated count CBC Lab Routine Dyslipidemia Expected: 06/14/2022, Expires: 08/14/2022 [facility] Work Phone: Comment on above: Expected: 06/14/2022 , Expires: 08/14/2022 Start: 06-14-2022 End: 08-14-2022 Cobalamin (Vitamin B12) [Mass/volume] in Serum or Plasma VITAMIN B12 BLOOD Lab Routine Fatigue, unspecified type Expected: 06/14/2022, Expires: 08/14/2022 [facility] Work Phone: Comment on above: Expected: 06/14/2022 , Expires: 08/14/2022 Start: 06-14-2022 End: 08-14-2022 Comprehensive metabolic 2000 panel - Serum or Plasma COMP METABOLIC PANEL Lab Routine Dyslipidemia Expected: 06/14/2022, Expires: 08/14/2022 [facility] Work Phone: Comment on above: Expected: 06/14/2022 , Expires: 08/14/2022 Start: 06-14-2022 End: 08-14-2022 Lipid 1996 panel - Serum or Plasma LIPID PANEL BASIC Lab Routine Dyslipidemia Expected: 06/14/2022, Expires: 08/14/2022 [facility] Work Phone: Comment on above: Expected: 06/14/2022 , Expires: 08/14/2022 Start: 06-14-2022 End: 08-14-2022 Thyrotropin [Units/volume] in Serum or Plasma TSH BLD Lab Routine Hypothyroidism, acquired Expected: 06/14/2022, Expires: 08/14/2022 [facility] Work Phone: Comment on above: Expected: 06/14/2022 , Expires: 08/14/2022 Start: 06-14-2022 End: 08-14-2022 Thyroxine (T4) free [Mass/volume] in Serum or Plasma T4 FREE/FREE THYROX Lab Routine Hypothyroidism, acquired Expected: 06/14/2022, Expires: 08/14/2022 [facility] Work Phone: Comment on above: Expected: 06/14/2022 , Expires: 08/14/2022 Start: 06-14-2022 End: 08-14-2022 Triiodothyronine (T3) Free [Mass/volume] in Serum or Plasma T3 FREE BLD Lab Routine Hypothyroidism, acquired Expected: 06/14/2022, Expires: 08/14/2022 [facility] Work Phone: Comment on above: Expected: 06/14/2022 , Expires: 08/14/2022 Start: 04-17-2022 ADVANCE DIRECTIVE DISCUSSION ADVANCE DIRECTIVE DISCUSSION [facility] Start: 03-23-2022 FECAL OCCULT BLOOD FECAL OCCULT BLOO D [facility] Start: 01-27-2022 End: 03-29-2022 Comprehensive metabolic 2000 panel - Serum or Plasma COMP METABOLIC PANEL Lab Routine Serum potassium elevated Expected: 01/27/2022, Expires: 03/29/2022 [facility] Work Phone: Comment on above: Expected: 01/27/2022 , Expires: 03/29/2022 Start: 01-03-2022 COVID-19 VACCINE (6 - Booster for Moderna series) COVID-19 VACCINE (6 - Booster for Moderna series) [facility] Start: 01-03-2022 COVID-19 VACCINE (6 - Moderna series) COVID-19 VACCINE (6 - Moderna series) [facility] Start: 12-16-2021 Influenza vaccination INFLUENZA (#1) [facility] Start: 10-21-2021 End: 12-21-2021 25-hydroxyvitamin D3 [Mass/volume] in Serum or Plasma [facility] Work Phone: Comment on above: Expected: 10/21/2021 , Expires: 12/21/2021 Start: 10-21-2021 End: 12-21-2021 CBC panel - Blood by Automated count [facility] Work Phone: Comment on above: Expected: 10/21/2021 , Expires: 12/21/2021 Start: 10-21-2021 End: 12-21-2021 Cobalamin (Vitamin B12) [Mass/volume] in Serum or Plasma [facility] Work Phone: Comment on above: Expected: 10/21/2021 , Expires: 12/21/2021 Start: 10-21-2021 End: 12-21-2021 Comprehensive metabolic 2000 panel - Serum or Plasma [facility] Work Phone: Comment on above: Expected: 10/21/2021 , Expires: 12/21/2021 Start: 10-21-2021 End: 12-21-2021 Thyrotropin [Units/volume] in Serum or Plasma [facility] Work Phone: Comment on above: Expected: 10/21/2021 , Expires: 12/21/2021 Start: 10-21-2021 End: 12-21-2021 Thyroxine (T4) free [Mass/volume] in Serum or Plasma [facility] Work Phone: Comment on above: Expected: 10/21/2021 , Expires: 12/21/2021 Start: 10-21-2021 End: 12-21-2021 Triiodothyronine (T3) [Mass/volume] in Serum or Plasma [facility] Work Phone: Comment on above: Expected: 10/21/2021 , Expires: 12/21/2021 Start: 09-24-2021 End: 11-24-2021 CREATININE BLD CREATININE BLD Lab Routine Transient cerebral ischemia, unspecified type Generalized weakness Aphasia Blurred vision Expected: 09/24/2021, Expires: 11/24/2021 [facility] Work Phone: Comment on above: Expected: 09/24/2021 , Expires: 11/24/2021 Start: 06-23-2021 COVID-19 VACCINE (5 - Booster for Moderna series) COVID-19 VACCINE (5 - Booster for Moderna series) [facility] Start: 04-17-2021 ADVANCE DIRECTIVE DISCUSSION ADVANCE DIRECTIVE DISCUSSION [facility] Start: 08-18-2015 RSV Vaccine (1 - 1-d ose 75+ series) RSV Vaccine (1 - 1-dose 75+ series) [facility] Start: 2000 RSV Vaccine (1 - 1-d ose 60+ series) RSV Vaccine (1 - 1-dose 60+ series) [facility] Start: 1990 SHINGRIX VACCINE (1 of 2) COHN GRIX VACCINE (1 of 2) [facility] Start: 08-18-1959 SHINGRIX VACCINE (1 of 2) COHN GRIX VACCINE (1 of 2) [facility] Start: 08-18-1959 Urine microalbumin profile [facility] Basic metabolic 2008 panel with ionized calcium - Serum or Plasma [facility] End: 10-24-2022 Ct head/brain w/o contrast material CT BRAIN WO IVCON Radiology STAT Transient cerebral ischemia, unspecified type Generalized weakness Aphasia Blurred vision 1 Occurrences starting 09/24/2021 until 10/24/2022 [facility] Work Phone: Comment on above: 1 Occurrences starti ng 09/24/2021 until 10/24/2022 End: 01-02-2025 DBT Breast - bilateral screening AMBROSE SCREENING W ORACIO Radiology Routine Personal history of breast cancer Encounter for screening mammogram for high-risk patient 1 Occurrences starting 12/04/2023 until 01/02/2025 [facility] Work Phone: Comment on above: 1 Occurrences starti ng 12/04/2023 until 01/02/2025 DBT Breast - bilater al screening AMBROSE SCREENING W ORACIO Radiology Routine Personal history of breast cancer Encounter for screening mammogram for high-risk patient 01/08/2024 1:08 PM EDT [facility] Work Phone: End: 10-24-2022 Duplex scan extracranial art compl bi study US CAROTID BILAT Radiology Routine Transient cerebral ischemia, unspecified type Generalized weakness Aphasia Blurred vision 1 Occurrences starting 09/24/2021 until 10/24/2022 [facility] Work Phone: Comment on above: 1 Occurrences starti ng 09/24/2021 until 10/24/2022 End: 01-13-2023 Dxa bone density study 1/> sites axial skel DXA-AXIAL SKELETON Radiology Routine Osteopenia, senile Disorder of bone and articular cartilage Disorder of bone density and structure, unspecified Other specified disorders of bone density and structure, multiple sites 1 Occurrences starting 12/14/2021 until 01/13/2023 [facility] Work Phone: Comment on above: 1 Occurrences starti ng 12/14/2021 until 01/13/2023 End: 09-24-2022 ECG COMPLETE ECG COMPLETE ECG Routine Transient cerebral ischemia, unspecified type Generalized weakness Aphasia Blurred vision 1 Occurrences starting 09/24/2021 until 09/24/2022 [facility] Work Phone: Comment on above: 1 Occurrences starti ng 09/24/2021 until 09/24/2022 ECG COMPLETE ECG COMPLETE ECG Routine Other chest pain 08/28/2024 12:47 PM EDT [facility] End: 08-28-2025 Echocardiography ECHO Cardiology Routine Palpitations 1 Occurrences starting 08/28/2024 until 08/28/2025 [facility] Comment on above: 1 Occurrences starti ng 08/28/2024 until 08/28/2025 Evaluation of diagno stic study results [facility] Hemoglobin.gastroint estina l.lower [Presence] in Stool by Immunoassay IMMUNOCHEMICAL FECAL OCCULT BLOOD TEST Lab Routine Melena Ordered: 08/28/2024 [facility] Comment on above: Ordered: 08/28/2024 End: 01-01-2023 AMBROSE SCREENING W ORACIO AMBROSE SCREENING W ORACIO Radiology Routine 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 in female, estrogen receptor positive (HCC) Encounter for screening mammogram for high-risk patient 1 Occurrences starting 12/02/2021 until 01/01/2023 [facility] Work Phone: Comment on above: 1 Occurrences starti ng 12/02/2021 until 01/01/2023 End: 01-01-2024 AMBROSE SCREENING W ORACIO AMBROSE SCREENING W ORACIO Radiology Routine 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 in female, estrogen receptor positive (HCC) Encounter for screening mammogram for high-risk patient 1 Occurrences starting 12/02/2022 until 01/01/2024 [facility] Work Phone: Comment on above: 1 Occurrences starti ng 12/02/2022 until 01/01/2024 NM Heart Views W str ess and W radionuclide IV [facility] SARS-CoV-2 (COVID-19 ) RNA [Presence] in Respiratory specimen by BLADE with probe detection COVID NAAT, UPPER RESPIRATORY, ROUTINE Microbiology Routine Viral URI with cough Exposure to COVID-19 virus 06/29/2023 1:10 PM EDT [facility] Work Phone: End: 08-28-2025 US Carotid arteries - bilateral US CAROTID ARTERIES [facility] Lab Routine Carotid atherosclerosis, bilateral 1 Occurrences starting 08/28/2024 until 08/28/2025 [facility] Work Phone: Comment on above: 1 Occurrences starti ng 08/28/2024 until 08/28/2025 End: 09-27-2025 XR Knee - bilateral 4 Views XR KNEE GENERAL 4V AP BOTH/PA BOTH/LAT/MERC BILATERAL Radiology Routine Chronic pain of both knees History of total knee arthroplasty, bilateral 1 Occurrences starting 08/28/2024 until 09/27/2025 [facility] Comment on above: 1 Occurrences starti ng 08/28/2024 until 09/27/2025 [facility] Immunizations Immunization Date Immunization Notes Care Provider Jamari maravilla 02-26-2024 COVID-19 vaccine, ag e 12+ yr (PFIZER-BIONTECH COMIRNATY) Vini Michlerison DO Work Phone: [facility] 02-26-2024 influenza, high dose seasonal, preservative-free Vini Micehlrison DO Work Phone: [facility] 02-26-2024 influenza virus vacc ine, unspecified formulation Vini Michelrison DO Work Phone: [facility] 02-21-2023 influenza (HD-IIV4) vaccine, age 65+ yr, high dose, quadrivalent, PF (FLUZONE HIGH-DOSE) Radha Jurado AGILE COACH.CONSULAR OFFICER Work Phone: [facility] 02-21-2023 pneumococcal (PCV20) vaccine, 20 valent (PREVNAR 20) Radha Jurado AGILE COACH.CONSULAR OFFICER Work Phone: [facility] 02-21-2023 influenza virus vacc ine, unspecified formulation Vini Michelrison DO Work Phone: [facility] 02-13-2023 COVID-19 vaccine, ag e 12+ yr, 2022- season (Novopyxis) Susanna Laguna AGILE COACH.CONSULAR OFFICER Work Phone: [facility] Work Phone: 01-21-2022 influenza, high-dose , quadrivalent vaccine (FLUZONE HIGH DOSE QUADRIVALENT) Ayesha Jefferson AGILE COACH.CONSULAR OFFICER Work Phone: [facility] 01-21-2022 influenza virus vacc ine, unspecified formulation Owen Lopez RN Work Phone: [facility] 08-11-2020 COVID-19 vaccine, fu ll dose (MODERNA) Radha Jurado AGILE COACH.CONSULAR OFFICER Work Phone: [facility] 07-14-2020 COVID-19 vaccine, fu ll dose (MODERNA) Radha Jurado AGILE COACH.CONSULAR OFFICER Work Phone: [facility] 07-13-2020 Covid (Moderna) [facility] 06-15-2020 Covid (Moderna) [facility] 01-08-2020 influenza, high dose seasonal, preservative-free Radha Rhiannon AGILE COACH.CONSULAR OFFICER Work Phone: [facility] 02-01-2019 influenza, high dose seasonal, preservative-free Radha Rhiannon AGILE COACH.CONSULAR OFFICER Work Phone: [facility] 01-02-2018 influenza, high dose seasonal, preservative-free Radha Rhiannon AGILE COACH.CONSULAR OFFICER Work Phone: [facility] Work Phone: 01-16-2017 Influenza virus vaccine [facility] 01-16-2017 influenza, seasonal, injectable, preservative free Radha Rhiannon AGILE COACH.CONSULAR OFFICER Work Phone: [facility] 12-31-2016 influenza, high dose seasonal, preservative-free Radha Rhiannon AGILE COACH.CONSULAR OFFICER Work Phone: [facility] 08-24-2016 pneumococcal polysaccharide vaccine, 23 valent Radha Rhiannon AGILE COACH.CONSULAR OFFICER Work Phone: [facility] Work Phone: 12-30-2015 influenza, high dose seasonal, preservative-free Radha Rhiannon AGILE COACH.CONSULAR OFFICER Work Phone: [facility] Work Phone: 07-31-2015 pneumococcal conjuga te vaccine, 13 valent Radha Rhiannon AGILE COACH.CONSULAR OFFICER Work Phone: [facility] 02-18-2015 influenza, high dose seasonal, preservative-free Radha Rhiannon AGILE COACH.CONSULAR OFFICER Work Phone: [facility] 01-20-2014 influenza, high dose seasonal, preservative-free Radha Rhiannon AGILE COACH.CONSULAR OFFICER Work Phone: [facility] 01-29-2013 influenza virus vacc ine, unspecified formulation Radha Rhiannon AGILE COACH.CONSULAR OFFICER Work Phone: [facility] 01-25-2012 influenza virus vacc ine, unspecified formulation Radha Rhiannon AGILE COACH.CONSULAR OFFICER Work Phone: [facility] Work Phone: 01-10-2009 influenza virus vacc ine, unspecified formulation Radha Rhiannon AGILE COACH.CONSULAR OFFICER Work Phone: [facility] 02-19-2008 influenza virus vacc ine, whole virus Radha Rhiannon AGILE COACH.CONSULAR OFFICER Work Phone: [facility] 02-19-2008 pneumococcal conjuga te vaccine, 7 valent Radha Rhiannon AGILE COACH.CONSULAR OFFICER Work Phone: [facility] 02-19-2007 influenza virus vacc ine, unspecified formulation Radha Rhiannon AGILE COACH.[facility] Work Phone: [facility] Work Phone: 02-20-2006 influenza virus vacc ine, unspecified formulation Radha Rhiannon AGILE COACH.CONSULAR OFFICER Work Phone: [facility] 02-15-2005 influenza virus vacc ine, unspecified formulation Radha Rhiannon AGILE COACH.[facility] Work Phone: [facility] Work Phone: Payers Date Payer Category Payer Unknown [id number] 2024 Self-pay [id number] 2021 Unknown [employer] [id number] 2021-Present [phone] [id number] [place] [id number] Indemnity [id number] 2021 Unknown [employer] [id number] 2021-Present [phone] [address] [address] [place] [address] Indemnity [id number] 2010 Unknown [id number] 2005 Medicare MEDICARE MEDICAR E A AND B [id number] 2005-Present [phone] [address] [address] [place] [address] Medicare [id number] 2005 Medicare [id number] 2005 Medicare [id number] Unknown [id number] Unknown [id number] Unknown [id number] Unknown [id number] Unknown [id number] Unknown [id number] Unknown [id number] Unknown [id number] Unknown [id number] Unknown [id number] Social History Date Type Detail Facility Start: 03-03-2011 End: 10-15-2024 Tobacco smoking status NCIS Never smoked tobacco [facility] Start: 09-24-2021 End: 01-03-2022 Alcohol intake Current drinker of alcohol (finding) [facility] Start: 1940 Sex Assigned At Not on file [facility] Start: 09-14-2021 End: 01-18-2022 Exposure to SARS-CoV-2 (event) Not sure [facility] Start: 06-10-2019 Tobacco smoking stat us NCIS Unknown if ever smoked [facility] Work Phone: Start: 11-29-2017 Non-smoker [facility] Start: 1940 Sex Assigned At Female W [facility] Start: 03-03-2011 End: 01-03-2022 Tobacco use and exposure Smokeless tobacco non-user [facility] Start: 01-18-2022 End: 08-28-2024 Alcohol intake Ex-drinker (finding) [facility] Start: 01-11-2022 End: 01-21-2022 Exposure to SARS-CoV-2 (event) Yes [facility] Start: 08-15-2022 End: 12-02-2022 History of Social function [facility] Work Phone: Start: 08-15-2022 End: 12-02-2022 Tobacco use panel [facility] Work Phone: (I/We) worried jodi er (my/our) food would run out before (I/we) got money to buy more. Never true [facility] Work Phone: Start: 03-18-2012 In the past 12 month s, has lack of transportation kept you from medical appointments or from getting medications? No [facility] Work Phone: How often to you hav e a drink containing alcohol? 2-4 times a month [facility] How many standard dr inks containing alcohol do you have on a typical day? 1 or 2 [facility] How often do you hav e 6 or more drinks on 1 occasion? Never [facility] Medical Equipment Procedure Code Equipment Code [...] lose 10-15 pounds this year.Stay away from [employer], candies, and bread and will increase activity outside when the weather warms up Comment on above: Formatting of this n ote might be different from the original. To keep BP under 140/80 Functional Status Date Assessment Result Facility 08-28-2024 Total score [AUDIT-C] 2 08/29/19 11:50 AM EDT Randy Aguilera LPN [facility] 04-04-2014 Are you deaf, or do you have serious difficulty hearing No 04/04/2014 2:11 PM Sariah Dennis RN No [facility] 04-04-2014 Are you blind, or do you have serious difficulty seeing, even when wearing glasses No 04/04/2014 2:11 PM Sariah Dennis RN No [facility] 04-04-2014 Do you have serious difficulty walking or climbing stairs No 04/04/2014 2:11 PM Sariah Dennis RN No [facility] 04-04-2014 Do you have difficul ty dressing or bathing No 04/04/2014 2:11 PM Sariah Dennis RN No [facility] 04-04-2014 Because of a physica l, mental, or emotional condition, do you have difficulty doing errands alone such as visiting a physician's office or shopping No 04/04/2014 2:11 PM Sariah Dennis RN No [facility] Mental Status Date Assessment Result Facility 04-04-2014 Because of a physica l, mental, or emotional condition, do you have serious difficulty concentrating, remembering, or making decisions No 04/04/2014 2:11 PM Sariah Dennis RN No [facility] Clinical Notes 09-24-2021 to 01-20-2025 Liane Mosher MA - 12/17/2024 3:08 PM EDTTelephone Encounter - María Elena Brown - 11/05/2024 12:00 PM EDTTelephone Encounter - María Elena Brown - 11/05/2024 12:00 PM EDT Note Date & Type Note Facility 01-20-2025 Note HNO ID: [id number] Author: ELISSA NEGRO APRN.CONSULAR OFFICER Service: ? Author Type: Nurse Practitioner Type: [...] volume. 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 APRN.[facility] 01-10-2025 Note HNO ID: [id number] Author: TAYLER CAMPOS RT(R) Service: ? Author [...] PATIENT PRESENTS WITH AN IMPLANTABLE OR ATTACHED SALES AND SERVICE CHANGE LEADER: No RADIOLOGY DEPARTMENT: Mammography PERIPHERAL IV DATA: Not applicable SIGNED BY: RT Aleida(R) January 10, 2025 2:33 PM [facility] 12-17-2024 Note HNO ID: [id number] Author: LIANE MOSHER MA Service: ? Author Type: [employer] Certified Network Associate Type: Progress Notes Filed: 12/17/2024 15:08 Note Text: POPULATION HEALTH NAVIGATION OUTREACH Action/FYI HCC gap closure added to upcoming appointment notes. No other Hm due. Reason for Outreach Care Gap/HCC or Scheduling Wellness Visits Care Gaps due: N/A Patient Contacted: Unable or unnecessary to reach patient: HCC related Updated appointment notes Navigation Signature: Liane Mosher MA December 17, 2024 3:08 PM [facility] 12-17-2024 History of Presen t illness Narrative [...] 2024 3:08 PM documented in this encounter [facility] 12-17-2024 Note Patient Outreach (NE TNAV) HARJIT BRADSHAW ([id number]) 1940 F Date Time Provider Department 12/17/24 [...] Encounter Status:Closed by LIANE MOSHER on 12/17/24 [facility] 11-05-2024 Telephone encounter Note Prescription Refill Information [...] Elena Brown November 05, 2024 12:01 PM [facility] 11-05-2024 Miscellaneous Notes Prescription Refill Information [...] 2024 12:01 PM documented in this encounter [facility] 10-15-2024 Evaluation note Diagnosis Onset Date [...] 8:28am Hypertension chronic December 12, 2024 8:28am [facility] Work Phone: 1(589) 643-516207-01-2025 Evaluation note* Diagnosis Onset Date Resolution Status [...] atrial fibrillation acute January 16, 2025 10:32am [facility] Work Phone: 1(796) 185-998007-01-2025 Evaluation note* Diagnosis Onset Date Resolution Status [...] 10:32am Hypertension chronic January 16, 2025 10:32am [facility] Work Phone: 1(365) 595-791106-20-2025 Telephone encounter Note* Telephone Encounter - Jodie Dupont LPN - 10/04/2024 12:45 PM EDT Tried to call pt muliple times phone rings it appears someone picks up then hangs up . Not sure what is happening. Will try again in a bit. [facility]06-20-2025 Miscellaneous Notes* Telephone Encounter - Jodie [...] to get her to this appt with Wind Energy Engineer? Vini Sparks DO * Telephone Encounter - [...] 8:37 AM EDT Has she seen the Wind Energy Engineer yet? This is needed Vini Sparks DO * Telephone Encounter - Yaa Jordan RN - 09/26/2024 3:27 PM EDT Patient states she was ordered Eliquis but it is too costly for her to continue. Asking for provider to order an alternative medication that will cost less. Please call patient with reply. Yaa Jordan RN documented in this encounterC[facility]06-13-2025 Telephone encounter Note * Telephone Encounter - Randy Aguilera LPN - 09/27/2024 10:18 AM EDT Message left to return call. [facility]06-13-2025 Telephone encounter Note* Telephone Encounter - Vini Spraks DO - 09/27/2024 9:50 AM EDT Does she have enough Eliquis to get her to this appt with Wind Energy Engineer? Vini Sparks DO [facility]06-13-2025 Telephone encounter Note* Telephone Encounter - [...] the home phone number. Dianna Monroe RN [facility]06-13-2025 Telephone encounter Note* Telephone Encounter - Yaa Jordan RN - 09/27/2024 9:06 AM EDT Attempted to reach patient using two phone numbers, no answer. Unable to leave messages. Please try contacting patient again. Yaa Jordan RN [facility]06-13-2025 Telephone encounter Note* Telephone Encounter - Vini Sparks DO - 09/27/2024 8:37 AM EDT Has she seen the Wind Energy Engineer yet? This is needed Vini Sparks DO [facility]06-12-2025 Telephone encounter Note* Telephone Encounter - Yaa Jordan RN - 09/26/2024 3:27 PM EDT Patient states she was ordered Eliquis but it is too costly for her to continue. Asking for provider to order an alternative medication that will cost less. Please call patient with reply. Yaa Jordan RN [facility]06-04-2025 Telephone encounter Note* Telephone Encounter - [...] Monroe RN September 18, 2024 9:13 AM [facility]06-04-2025 Miscellaneous Notes* Telephone Encounter - Dianna [...] 18, 2024 9:13 AM documented in this encounterCleveland [facility]06-03-2025 Telephone encounter Note * Telephone Encounter - Randy Aguilera LPN - 09/17/2024 1:08 PM EDT Pt. informed letter sent. [facility]06-03-2025 Miscellaneous Notes* Telephone Encounter - Randy [...] years Vini Sparks DO documented in this encounterCleveland [facility]06-03-2025 Telephone encounter Note * Telephone Encounter - Vini Sparks DO - 09/17/2024 7:39 AM EDT Please inform patient that her ECHO shows mild tricuspid valve and mitral valve regurgitation only.Otherwise her ECHO is normal. Continue good exercise and BLOOD PRESSURE control Recommend repeat echo in 2-3 years Vini Sparks DO [facility]06-02-2025 Telephone encounter Note* Telephone Encounter - Neha Stuart MA - 09/16/2024 10:15 AM EDT Pt informed, verbalized understanding Neha Stuart MA [facility]06-02-2025 Miscellaneous Notes* Telephone Encounter - Neha Stuart MA - 09/16/2024 10:15 AM EDT Pt informed, verbalized understanding Neha Stuart MA * Telephone Encounter - Neha Stuart MA - 09/16/2024 10:14 AM EDT ----- Message from Ayesha Tran APRN.CONSULAR OFFICER sent at 09/16/2024 7:42 AM EDT ----- Please let patient know that potassium level is back to normal. No concerns. Take care, Ayesha Tran APRN.CONSULAR OFFICER documented in this encounterCleveland [facility]31-27-0280 Telephone encounter Note * Telephone Encounter - Neha Stuart MA - 09/16/2024 10:14 AM EDT ----- Message from Ayesha Tran APRN.CONSULAR OFFICER sent at 09/16/2024 7:42 AM EDT ----- Please let patient know that potassium level is back to normal. No concerns. Take care, Ayesha Tran APRN.CONSULAR OFFICER [facility]05-30-2025 Telephone encounter Note* Telephone Encounter - Purnima Galvez LPN - 09/13/2024 4:26 PM EDT Patient returned call and went over results, notes from Ayesha Tran PROPOSAL LEAD WRITER with understanding. Patient may not get lab done until Monday that is when she is coming into [place] again, depends ifshe can do it Monday. [facility]05-30-2025 Miscellaneous Notes* Telephone Encounter - Purnima Galvez LPN - 09/13/2024 4:26 PM EDT Patient returned call and went over results, notes from Ayesha Tran PROPOSAL LEAD WRITER with understanding. Patient may not get lab done until Monday that is when she is coming into [place] again, depends ifshe can do it Monday. [...] you, Ayesha Tran APRN.MARYANA documented in this encounterCleveland Clinic [facility]05-30-2025 Telephone encounter Note * Telephone Encounter - Ailin Alanis - 09/13/2024 3:44 PM EDT Order faxed to [facility] with the request that they reach out to the patient to schedule. [facility]05-30-2025 Miscellaneous Notes* Telephone Encounter - Ailin Alanis - 09/13/2024 3:44 PM EDT Order faxed to [facility] with the request that they reach out to the patient to schedule. * Telephone Encounter - Ayesha Tran APRN.MARYANA - 09/12/2024 1:15 PM EDT Ok with going with [facility]. Please assistance in scheduling/ provide her the number. Thank you, Ayesha Tran APRN.CONSULAR OFFICER * Telephone Encounter - Ailin Alanis - 09/12/2024 8:51 AM EDT Spoke with patient and she does not want to leave [place] for her cardiology appointment. First available at [facility] isn't until March 2025. Please advise if provider is ok with patient going to [facility]. * Telephone Encounter - Neha [...] wit pt states has not yet seen assembler truck trailer. * Telephone Encounter - Vini Sparks DO - 09/07/2024 7:28 AM EDT Please call and clarify if she has seen the Wind Energy Engineer yet? She was just recently diagnosed with [...] something else that is cheaper? Patient uses [facility] for her pharmacy. Please advise documented in this encounterCleveland [facility]05-29-2025 Telephone encounter Note * Telephone Encounter - Jodie Dupont LPN - 09/12/2024 3:44 PM EDT Attempted to call pt rings. Then hear a clicking like someone picks up but no one there. [facility]05-29-2025 Telephone encounter Note* Telephone Encounter - [...] labs look great. Thank you, Ayesha Tran APRN.CONSULAR OFFICER [facility]05-29-2025 Telephone encounter Note* Telephone Encounter - Ayesha Tran APRN.CONSULAR OFFICER - 09/12/2024 1:15 PM EDT Ok with going with [facility]. Please assistance in scheduling/ provide her the number. Thank you, Ayesha Tran APRN.CONSULAR OFFICER [facility]05-29-2025 Telephone encounter Note* Telephone Encounter - Ailin Alanis - 09/12/2024 8:51 AM EDT Spoke with patient and she does not want to leave [place] for her cardiology appointment. First available at [facility] isn't until March 2025. Please advise if provider is ok with patient going to [facility]. [facility]05-27-2025 Telephone encounter Note* Telephone Encounter - Neha Stuart MA - 09/10/2024 10:48 AM EDT Pt needs to see cardiology [facility]! Please schedule Neha Stuart MA [facility]05-24-2025 Telephone encounter Note* Telephone Encounter - Vini Sparks DO - 09/07/2024 11:17 AM EDT I need her to get an appt [facility], I don;t know if she is actually a candidate, until getting their opinion, to change to Warfarin instead of Eliquis Vini Sparks DO [facility]05-24-2025 Telephone encounter Note* Telephone Encounter - Jodie Dpuont LPN - 09/07/2024 10:05 AM EDT Spoke wit pt states has not yet seen assembler truck trailer. [facility]05-24-2025 Telephone encounter Note* Telephone Encounter - Vini Sparks DO - 09/07/2024 7:28 AM EDT Please call and clarify if she has seen the Wind Energy Engineer yet? She was just recently diagnosed with atrial fibrillation on 08/28 in office Vini Sparks DO [facility]05-21-2025 Telephone encounter Note* Telephone Encounter - [...] something else that is cheaper? Patient uses [facility] for her pharmacy. Please advise [facility]05-14-2025 Telephone encounter Note* Telephone Encounter - Randy Aguilera LPN - 08/28/2024 1:59 PM EDT Medical records faxed to Dr. Can [facility]05-14-2025 Miscellaneous Notes* Telephone Encounter - Randy Geiger LPN - 08/28/2024 1:59 PM EDT Medical records faxed to Dr. Can * Telephone Encounter - Vini Sparks DO - 08/28/2024 1:15 PM EDT Please fax Wind Energy Engineer referral to [facility] per her request Also fax current ECG and office notes Vini Sparks DO documented in this encounterCleveland [facility]05-14-2025 Telephone encounter Note * Telephone Encounter - Vini Sparks DO - 08/28/2024 1:15 PM EDT Please fax Wind Energy Engineer referral to [facility] per her request Also fax current ECG and office notes Vini Sparks DO [facility]05-14-2025 NoteHNO ID: [id number] Author: VINI SPARKS DO Service: ? Author [...] SHOULDER Left 01/09/2019 Dr. David Nieto @ [facility]; L reverse total shoulder replacement; L [...] LIPID MICROSPHERES 1.1 M (more content not included)...[facility]05-14-2025 NoteHNO ID: [id number] Author: VINI SPARKS, DO Service: ? Author [...] weight loss. BMI 30.75 kg/(m2) Vini Sparks [facility]05-14-2025 History of Present illness Narrative* Bridger [...] SHOULDER Left 01/09/2019 Dr. David Nieto @ [facility]; L reverse total shoulder replacement; L [...] Check ECHO and carotid US F/u with Wind Energy Engineer for opinion if any further testing is needed 12. Atrial fibrillation, unspecified type (HCC) - ICD9: 427.31, ICD10: I48.91 See above Continue metoprolol Start on eliquis Check ECHO and carotid US F/u with Wind Energy Engineer for opinion if any further testing is needed - CONSULT TO CARDIOLOGY - APIXABAN 2.5 MG TABLET Vini Sparks DO I spent 45 minutes in the visit, with more than 50% of the total cgjf-uv-xyps time of the visit in counseling / coordination of care. Return if no improvement. Follow up with Vini Sparks DO. To ER if develops chest pain, shortness of breath. Discussed risks, benefits, alternatives, and potential side effects of medications. Patient/Guardian expressed understanding and agreed with the plan. See patient instructions. Vini Sparks DO [address] [place] [address] * Vini Sparks DO - 08/28/2024 12:40 [...] benefit of weight loss. BMI 30.75 kg/(m^2) Vnii Sparks DO documented in this encounterCleveland [facility]03-27-2025 History of Present illness Narrative* Siva [...] replacment ARTHROPLASTY TOTAL SHOULDER Left 01/09/2019 Dr. Davdi Nieto @ [facility]; L reverse total shoulder replacement; L [...] no details, 85 Coronary Artery Disease Father [place], 94 Cancer Sister 57 liver Cancer Brother [...] Moderate Siva Knapp MD documented in this encounterCleveland [facility]03-27-2025 NoteHNO ID: [id number] Author: SIVA KNAPP MD Service: ? Author [...] SHOULDER Left 01/09/2019 Dr. David Nieto @ [facility]; L reverse total shoulder replacement; L [...] no details, 85 Coronary Artery Disease Father [place], 94 Cancer Sister 57 liver Cancer Brother [...] Discontinued Advance Directive Discussio (more content not included)...[facility]03-26-2025 Telephone encounter Note* Telephone Encounter - Vini Sparks DO - 07/10/2024 2:28 PM EDT See below Patient needs to be seen by CONSULAR OFFICER since I am not in tomorrow and don't have any option to see her Monday and am off next week Vini Sparks DO [facility]03-26-2025 Miscellaneous Notes* Telephone Encounter - Vini Sparks DO - 07/10/2024 2:28 PM EDT See below Patient needs to be seen by CONSULAR OFFICER since I am not in tomorrow and don't have any option to see her Monday and am off next week Vini Sparks DO * Telephone Encounter - Chikis Leone RN - 07/10/2024 12:34 PM EDT HEALTHY AT HOME OUTREACH Provider Action/FYI: Advised patient to be seen within 24 hours due to anxiety symptoms. Patient would like to see Dr. Sparks. Lexx, you've reached [facility] at Home, my name is Chikis Leone RN, I'm a registered nurse, and we are on a recorded line. Patient identified by name and date of Spoke with patient Verify that the patient is a [facility] patient: Yes Are you having any [...] : N/A Protocols used: Anxiety and Panic [id number] documented in this encounterCleveland Clinic [facility]03-26-2025 NoteHNO ID: [id number] Author: DORITA TIJERINA MA Service: ? Author Type: [employer] Certified Network Associate Type: Progress Notes Filed: 07/10/2024 13:27 Note [...] Patient scheduled/pended orders: Follow-up Appointment 07/11/2024 in [facility] with SIVA KNAPP - [facility] - Medicare Wellness 01/10/2025 in [facility] with SCREEN [facility] - 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 in female, estrogen receptor positive (HCC) [C50.112, Z17.0]; Encounter for screening mammogram for high-risk patient [Z12.31] , Comment: RIGHT 01/20/2025 in [facility] with ELISSA NEGRO - 1 YR OV/MAMM 01/10* Navigation Signature: Dorita Hopkins MA July 10, 2024 12:55 [facility]03-26-2025 History of Present illness Narrative* Dorita [...] Patient scheduled/pended orders: Follow-up Appointment 07/11/2024 in [facility] with SIVA KNAPP - An[facility] - Medicare Wellness 01/10/2025 in [facility] with [facility]CREEN [facility]MO [facility] - 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 in female, estrogen receptor positive (HCC) [C50.112, Z17.0]; Encounter for screening mammogram for high-risk patient [Z12.31] , Comment: RIGHT 01/20/2025 in [facility] with ELISSA NEGRO - 1 YR OV/MAMM 01/10* Navigation Signature: Dorita Hopkins MA July 10, 2024 12:55 PM documented in this encounterCleveland [facility]03-26-2025 Telephone encounter Note * Telephone Encounter - Chikis Leone RN - 07/10/2024 12:34 PM EDT HEALTHY AT HOME OUTREACH Provider Action/FYI: Advised patient to be seen within 24 hours due to anxiety symptoms. Patient would like to see Dr. Sparks. Hello, you've reached [facility], my name is Chikis Leone RN, I'm a registered nurse, and we are on a recorded line. Patient identified by name and date of Spoke with patient Verify that the patient is a [facility] patient: Yes Are you having any [...] : N/A Protocols used: Anxiety and Panic Xagkoi-[id number]-VO [facility]03-26-2025 NotePatient Outreach (NETNAV) HARJIT BRADSHAW ([id number]) 1940 F Date Time Provider Department 07/10/24 [...] Patient scheduled/pended orders: Follow-up Appointment 07/11/2024 in [facility] with SIVA KNAPP - Anxiety 08/28/2024 in [facility] with VINI SPARKS - Medicare Wellness 01/10/2025 in [facility] with [facility]CREEN [facility]MO [facility] - 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 in female, estrogen receptor positive (HCC) [C50.112, Z17.0]; Encounter for screening mammogram for high-risk patient [Z12.31] , Comment: RIGHT 01/20/2025 in [facility] with ELISSA NEGRO - 1 [...] Outreach [[id number]] Cmt: Healthy at Home - [facility] Prescriptions as of 07/10/2024 - sertraline [...] 08/15/2022 Encounter Status:Closed by DORITA TIJERINA on 07/10/24[facility]11-19-2024 Telephone encounter Note* Telephone Encounter - [place] Sarah Kinney - 03/05/2024 4:49 PM EST Patient returned phone call. Please call her on her 's cell: [phone]. [facility]11-19-2024 Miscellaneous Notes* Telephone Encounter - [place] Sarah Kinney - 03/05/2024 4:49 PM EST Patient returned phone call. Please call her on her 's cell: [phone]. * Telephone Encounter - Randy Aguilera LPN [...] for 90 tablets with 1 refill. Called [facility] and spoke with pharmacist Camilla. Confirmed with [...] date is 07/09/23 and prescription number of [id number]. Pt states that sometimes she will empty [...] to speak with her daughter Lexy, Jesus, emnmpxgv-xq-stn Owen and son Bravo. Nurse concerned about [...] Galvez LPN - 02/29/2024 9:14 AM EST [facility] pharmacy calling asking to clarify directions on Sertraline 100 mg rx please. Rx has2 sets of directions on the rx. Aware PCP is out of the office on and they will notify thepatient also. Please advise documented in this encounterCleveland Clinic [facility] Hospital11-19-2024 Telephone encounter Note * Telephone Encounter - Randy Aguilera LPN - 03/05/2024 4:45 PM EST Tried to inform no answer or VM. [facility]11-19-2024 Telephone encounter Note* Telephone Encounter - Vini Sparks DO - 03/05/2024 4:22 PM EST The following approved medication requests have been transmitted electronically. Requested Prescriptions Signed Prescriptions Disp Refills sertraline (ZOLOFT) 100 mg tablet 135 tablet 1 Sig: Take 1.5 tablets daily at bedtime Authorizing Provider: VINI SPARKS DO [facility]11-19-2024 Telephone encounter Note* Telephone Encounter - [...] for 90 tablets with 1 refill. Called [facility] and spoke with pharmacist Camilla. Confirmed with [...] date is 07/09/23 and prescription number of [id number]. Pt states that sometimes she will empty [...] to speak with her daughter Lexy, Jesus, aoghqpla-cw-sby Owen and son Bravo. Nurse concerned about [...] she starts noticing more confusion. Verbalized understanding. [facility]11-18-2024 Telephone encounter Note* Telephone Encounter - Ava Roberts PA-C - 03/04/2024 10:45 AM EST Please confirm with patient her dose-it appears from last visit and refill that she is taking Zoloft 100 mg - 2 tabs at bedtime. [facility] Work Phone: 1(964) 276-254011-18-2024 NoteHNO ID: [id number] Author: OWEN LOPEZ RN Service: ? Author [...] Owen Lopez RN March 04, 2024 10:06 [facility]11-18-2024 History of Present illness Narrative* Owen [...] 04, 2024 10:06 AM documented in this encounterCleveland Clinic [facility]11-18-2024 NotePatient Outreach ([facility]) HARJIT BRADSHAW ([id number]) 1940 F Date Time Provider Department 03/04/24 OWEN LOPEZ [facility] During your visit today, we recorded the following information about you: Owen Lopez, RN 03/04/2024 10:07 AM Signed [facility] Telephonic Outreach Provider Scooter/MISBAH HTN, depression, breast [...] 08/15/2022 Encounter Status:Closed by OWEN LOPEZ on 03/04/24[facility] 02-29-2024 Telephone encounter Note* Telephone Encounter - Purnima Galvez LPN - 02/29/2024 9:14 AM EST [facility] pharmacy calling asking to clarify directions on Sertraline 100 mg rx please. Rx has2 sets of directions on the rx. Aware PCP is out of the office on and they will notify thepatient also. Please advise [facility]11-13-2024 Telephone encounter Note* Telephone Encounter - Deana Ferreira MA - 02/28/2024 3:00 PM EST Called and spoke to 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 Deana Ferreira MA [facility]11-13-2024 Miscellaneous Notes* Telephone Encounter - Deana Ferreria MA - 02/28/2024 3:00 PM EST Called and spoke to 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 Deana Ferreira MA * Telephone Encounter - Tiarra Adler - 02/28/2024 2:47 PM EST [facility] is calling Vini Sparks DO today. Patient was at [facility] today and they have no record of receiving two of the medications sent on Monday sertraline (ZOLOFT) 100 mg tablet amLODIPine (NORVASC) 5 mg tablet Please contact pharmacy or send new scripts. documented in this encounterCleveland Clinic [facility]11-13-2024 Telephone encounter Note * Telephone Encounter - Tiarra Adler - 02/28/2024 2:47 PM EST [facility] is calling Vini Sparks DO today. Patient was at [facility] today and they have no record of receiving two of the medications sent on Monday sertraline (ZOLOFT) 100 mg tablet amLODIPine (NORVASC) 5 mg tablet Please contact pharmacy or send new scripts. [facility]11-11-2024 NoteHNO ID: [id number] Author: VINI SPARKS DO Service: ? Author [...] SHOULDER Left 01/09/2019 Dr. David Nieto @ [facility]; L reverse total shoulder replacement; L [...] diet and regular exercise (more content not included)...[facility]11-11-2024 History of Present illness Narrative* Vini Sparks [...] SHOULDER Left 01/09/2019 Dr. David Nieto @ [facility]; L reverse total shoulder replacement; L [...] vaccine - ICD9: V04.89, ICD10: Z23 - PFIZER-BIONTNewsummitbio COVID-19 VACCINE AGE 12+ YR (COMIRNATY) 7. [...] See patient instructions. Vini Sparks DO [address] [place] [address] documented in this encounterCleveland Clinic [facility]11-11-2024 Instructions* Patient Instructions* Vini Sparks DO - 02/26/2024 11:08 AM EST Magnesium glycinate or gluconate 400-500 mg in the evening to help symptoms Vitamin B12 once a day 1000 mcg a day in the AM documented in this encounterCleveland Clinic [facility]10-28-2024 Telephone encounter Note * Telephone Encounter - Talia Toro RN - 02/12/2024 10:58 AM EDT Pt called and is notified of providers message and instructions. Pt voices understanding. Talia Toro RN [facility]10-28-2024 Miscellaneous Notes* Telephone Encounter - Talia [...] calling: self Call patient at: at home [phone] (home) Was an appointment scheduled: No Closing statement: Results or non-symptom based questions: Thank you for calling [facility], your call will be returned within the next business day. Jyoti Kinney documented in this encounterC[facility] Clinic [facility]10-26-2024 Telephone encounter Note * Telephone Encounter - Vini Sparks DO - 02/10/2024 12:35 PM EDT Orders placed for fasting labs Please inform patient Vini Sparks DO [facility]10-25-2024 Telephone encounter Note* Telephone Encounter - Jyoti Santoyo - 02/09/2024 3:18 PM EDT [facility] is calling Vini Sparks DO today with concern regarding Lab Orders Patient would like to do lab work prior to upcoming appointment. Thank you. Patient has been identified by name and birthdate. Duration of symptoms: N/A Person calling: self Call patient at: at home [phone] (home) Was an appointment scheduled: No Closing statement: Results or non-symptom based questions: Thank you for calling [facility], your call will be returned within the next business day. Jyoti Kinney [facility]10-25-2024 Telephone encounter Note* Telephone Encounter - [...] Owenselizabeth Kinney February 09, 2024 3:17 PM [facility]10-25-2024 Miscellaneous Notes* Telephone Encounter - Jyoti [...] 09, 2024 3:17 PM documented in this encounterCleveland Clinic [facility] Hospital10-15-2024 NoteHNO ID: [id number] Author: OWEN LOPEZ RN Service: ? Author [...] 02/26/2024 10:40 AM Vini Sparks, [facility] [place] 6 month follow up Contacted for: Routine Telephonic Outreach Contact made with patient: No, unable to leave message. Will reattempt call Owen Lopez RN January 30, 2024 2:04 [facility]10-12-2024 NoteHNO ID: [id number] Author: OWEN LOPEZ RN Service: ? Author [...] 02/26/2024 10:40 AM Vini Sparks, Family Medicine [place] 6 month follow up Contacted for: Routine Telephonic Outreach Contact made with patient: No, unable to leave message. Will reattempt call Owen Lopez RN January 27, 2024 4:44 [facility] History of Present illness Narrative* Owen [...] 27, 2024 4:44 PM documented in this encounterCleveland Clinic [facility]10-12-2024 NotePatient Outreach ([facility]) HARJIT BRADSHAW ([id number]) 1940 F Date Time Provider Department 01/27/24 [...] Owen Lopez RN 01/30/2024 2:05 PM Signed [facility] Telephonic Outreach Provider Action/MISBAH HTN, depression, breast [...] Date Reviewed: 12/04/2023 Reviewed by: 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 APRN.CONSULAR OFFICER - Fully Assessed Reason for Visit: community monitoring outreach [Other] Cmt: [facility] telephonic Prescriptions as of 01/30/2024 - sertraline [...] 08/15/2022 Encounter Status:Closed by OWEN LOPEZ on 01/27/24[facility] 01-12-2024 Telephone encounter Note* Telephone Encounter - Ailin Alanis - 01/12/2024 10:50 AM EDT Spoke with patient and scheduled. Printed and mailed schedule to patient. Ailin Alanis [facility]09-27-2024 Miscellaneous Notes* Telephone Encounter - Ailin Alanis - 01/12/2024 10:50 AM EDT Spoke with patient and scheduled. Printed and mailed schedule to patient. Aliin Alanis * Telephone Encounter - Fabiana De [...] week after mammogram. Thank you. 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 APRN.CONSULAR OFFICER documented in this encounterCleveland Clinic [facility]09-27-2024 Telephone encounter Note * Telephone Encounter - Fabiana De Los Santos LPN - 01/12/2024 9:16 AM EDT Patient still needs scheduled. Fabiana De Los Santos LPN [facility]09-27-2024 Telephone encounter Note* Telephone Encounter - Herminia Levin - 01/12/2024 8:52 AM EDT Pt called back and was given info about mammogram. Patient voiced understanding. [facility]09-27-2024 Telephone encounter Note* Telephone Encounter - Fabiana De Los Santos LPN - 01/12/2024 8:48 AM EDT Unable to get through to patient. Faibana De Los Santos LPN [facility]09-26-2024 Telephone encounter Note* Telephone Encounter - Ailin Alanis - 01/11/2024 1:57 PM EDT Attempted twice to contact patient - phone rings once, then sounds like someone picks up, hear 2 clicks about 4 seconds apart and then the call disconnects. Ailin Alanis [facility]09-26-2024 Telephone encounter Note* Telephone Encounter - 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 APRN.CNP - 01/11/2024 1:51 PM EDT Please inform pt. that her R mammogram is fine. R mammogram due in one year-OV one week after mammogram. Thank you. 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 APRN.CONSULAR OFFICER [facility]09-25-2024 Note* Letter - Coordinator, Mammography - 01/10/2024 9:36 PM EDT January 11, 2024 PID: [id number] Harjit Bradshaw [address] [place] [id number] Dear Ms. Bradshaw, We are pleased to [...] report will be kept on file at [facility] as part of your permanent medical record and are available for your continuing care. Thank you for allowing us to help in meeting your health care needs. Sincerely, Dr. Whiteside Interpreting Radiologist [facility] (Normal over 40) [facility]09-25-2024 Miscellaneous Notes* Letter - Coordinator, Mammography - 01/10/2024 9:36 PM EDT January 11, 2024 PID: [id number] Harjit Bradshaw [address] [place] [address] Dear Ms. Bradshaw, We are pleased to [...] report will be kept on file at [facility] as part of your permanent medical record and are available for your continuing care. Thank you for allowing us to help in meeting your health care needs. Sincerely, Dr. Whiteside Interpreting Radiologist [facility] (Normal over 40) documented in this encounterC[facility] Clinic [facility]09-23-2024 History of Present illness Narrative* Anila [...] PATIENT PRESENTS WITH AN IMPLANTABLE OR ATTACHED SALES AND SERVICE CHANGE LEADER: No RADIOLOGY DEPARTMENT: Mammography PERIPHERAL IV DATA: Not applicable SIGNED BY: Patricia Rudolph January 08, 2024 11:10 AM documented in this encounterC[facility] Clinic [facility]09-13-2024 History of Present illness Narrative* Owen [...] 29, 2023 9:49 AM documented in this encounterC[facility] Clinic [facility]09-04-2024 History of Present illness Narrative* Owen Lopez RN - 12/20/2023 4:19 PM EDT [facility] Telephonic Outreach Provider Action/FYI Contacted for: Routine Telephonic Outreach Contact made with patient: No, unable to leave message. Will reattempt call Owen Lopez RN December 20, 2023 4:19 PM documented in this encounterC[facility]08-19-2024 Telephone encounter Note * Telephone Encounter - Ashley King - 12/04/2023 3:52 PM EDT Patient called requesting PCP to review today's OV notes from 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 CNP for a second opinion on plan of care. ASSESSMENT/PLAN: 1. 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 [facility]08-19-2024 Miscellaneous Notes* Telephone Encounter - Ashley King - 12/04/2023 3:52 PM EDT Patient called requesting PCP to review today's OV notes from 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 CNP for a second opinion on plan of care. ASSESSMENT/PLAN: 1. 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 documented in this encounterC[facility]08-19-2024 History of Present illness Narrative* Elissa [...] volume. The malignancy was both ER and SD positive (both > 95%, strong) and HER-2 [...] femara 12/14/18. I get so upset. 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 I'm overwhelmed. Appetite:Good. Wt. 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 APRN.CNP documented in this encounterC[facility]08-08-2024 History of Present illness Narrative* Owen [...] 23, 2023 3:02 PM documented in this encounterC[facility]08-02-2024 Telephone encounter Note * Telephone Encounter - Laurie Johnson LPN - 11/17/2023 12:50 PM EDT Patient taking 2 at bedtime, please review. [facility]08-02-2024 Miscellaneous Notes* Telephone Encounter - Laurie [...] 17, 2023 12:18 PM documented in this encounterC[facility]08-02-2024 Telephone encounter Note * Telephone Encounter [...] Amparo Kinney November 17, 2023 12:18 PM [facility]07-11-2024 History of Present illness Narrative* Owen [...] at home 12/04/2023 11:30 AM 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 APRN.CONSULAR OFFICER Hematology/Oncology 1 YR OV/MAMM 01/05/23* Contacted for: Routine Telephonic Outreach Contact made with patient: No, unable to leave message. Will reattempt call Owen Lopez RN October 26, 2023 11:47 AM documented in this encounterC[facility]07-05-2024 Telephone encounter Note * Telephone Encounter [...] Jyoti Kinney October 20, 2023 2:46 PM [facility]07-05-2024 Miscellaneous Notes* Telephone Encounter - Jyoti [...] 20, 2023 2:46 PM documented in this encounterC[facility] Clinic [facility]06-26-2024 History of Present illness Narrative* Owen Lopez RN - 10/11/2023 11:47 AM EDT [facility] Telephonic Outreach Provider Scooter/MISBAH LVM HTN, depression, [...] 11, 2023 11:48 AM documented in this encounterC[facility]05-29-2024 History of Present illness Narrative* Owen Lopez RN - 09/13/2023 1:47 PM EDT [facility] Telephonic Outreach Provider Scooter/MISBAH Spoke to pt, [...] daily weight at home? No Based on otr driver, the following disposition is advised: No symptoms or symptoms present, not severe. Routed to: No Action Needed ABNER Education Provided this Outreach: No Owen Lopez RN September 13, 2023 1:53 PM documented in this encounterC[facility]05-29-2024 Telephone encounter Note * Telephone Encounter [...] 02/26/2024 Please advise. Thank you. Tiarra Adler. [facility]05-29-2024 Miscellaneous Notes* Telephone Encounter - Tiarra [...] Thank you. Tiarra Adler. documented in this encounterC[facility]05-08-2024 Telephone encounter Note * Telephone Encounter - Randy Aguilera LPN - 08/23/2023 6:19 PM EDT Pt. informed. [facility]05-08-2024 Miscellaneous Notes* Telephone Encounter - Randy Geiger LPN - 08/23/2023 6:19 PM EDT Pt. informed. * Telephone Encounter - Ayesha Tran APRN.CNP - 08/23/2023 6:13 PM EDT Please call patient and let her know that lab work results all look great and stable. No concerns or abnormalities. Thank you, Ayesha Tran APRN.CNP documented in this encounterC[facility]05-08-2024 Telephone encounter Note * Telephone Encounter - Ayesha Tran APRN.CNP - 08/23/2023 6:13 PM EDT Please call patient and let her know that lab work results all look great and stable. No concerns or abnormalities. Thank you, Ayesha Tran APRN.CONSULAR OFFICER [facility]05-07-2024 History of Present illness Narrative* Vini [...] SHOULDER Left 01/09/2019 Dr. David Nieto @ [facility]; L reverse total shoulder replacement; L [...] plan. See patient instructions. Vini Sparks DO [address] [place] [address] [place] documented in this encounterC[facility]05-01-2024 History of Present illness Narrative* Owen [...] 16, 2023 12:15 PM documented in this encounterC[facility]04-17-2024 Miscellaneous Notes* Telephone Encounter - Jodie [...] you. María Elena Brown. documented in this encounterC[facility]04-17-2024 History of Present illness Narrative* Owen [...] 02, 2023 12:37 PM documented in this encounterC[facility]03-20-2024 History of Present illness Narrative* Owen Lopez RN - 07/05/2023 11:36 AM EDT [facility] Telephonic Outreach Provider Action/ROSINAI LVM HTN, depression, breast cancer with mast 08/21 PCP appt Contacted for: Routine Telephonic Outreach Contact made with patient: No, left message. Owen Lopez RN July 05, 2023 11:40 AM documented in this encounterC[facility]03-15-2024 Miscellaneous Notes* Telephone Encounter - Zita [...] new or worsening s/s. documented in this encounterC[facility]03-14-2024 History of Present illness Narrative* Patience [...] SHOULDER Left 01/09/2019 Dr. David Nieto @ [facility]; L reverse total shoulder replacement; L [...] no details, 85 Coronary Artery Disease Father [place], 94 Cancer Sister 57 liver Cancer Brother [...] illness Patience Winter APRN.MARYANA documented in this encounterC[facility]03-14-2024 Instructions* Patient Instructions* Patience Winter APRN.CNP [...] illness Patience Winter APRN.MARYANA documented in this encounterC[facility]02-06-2024 History of Present illness Narrative* Owen Lopez RN - 05/23/2023 2:15 PM EST [facility] Telephonic Outreach Provider Action/FYI Pt goal, adls [...] goal align with programs offered at the [facility]? Yes Chronic Disease Management patient goals yes: Weight loss Most people know what to do to become healthier, yet struggle to put it into action on their own, It can be hard to maintain a healthy lifestyle, especially when life is so stressful. Can we connect you with a [facility] Quail Farmer to find a program that could help [...] of breath with activity? No Based on otr driver, the following disposition is advised: No symptoms or symptoms present, not severe. Routed to: No Action Needed ABNER Education Provided this Outreach: No Owen Lopez RN May 23, 2023 2:13 PM documented in this encounterC[facility]12-05-2023 History of Present illness Narrative* Owen Lopez RN - 03/21/2023 1:21 PM EST [facility] Telephonic Outreach Provider Scooter/MISBAH LVM HTN, depression, breast cancer with mast Contacted for: Routine Telephonic Outreach Contact made with patient: No, left message. Owen Lopez RN March 21, 2023 1:25 PM documented in this encounterC[facility]12-04-2023 Miscellaneous Notes* Telephone Encounter - Katlin [...] 08/2023 Last refill: 02/2022 documented in this encounterC[facility]11-01-2023 Miscellaneous Notes* Telephone Encounter - Karlene [...] Ligia- over my head toni at the [facility] calling asking for prescription for pt Mastectomy bras and breast prosthetics. Stated pt needs 3 more [phone] Please assist documented in this encounterC[facility]10-24-2023 Miscellaneous Notes* Telephone Encounter - Laurie [...] you. Laurie Johnson LPN. documented in this encounterC[facility]10-18-2023 Miscellaneous Notes* Telephone Encounter - Randy [...] notify patient. Randy Kinney documented in this encounterC[facility]10-17-2023 History of Present illness Narrative* Owen Lopez RN - 01/31/2023 1:50 PM EDT [facility] Telephonic Outreach Provider Action/FYI Fasting labs prior to PCP appt LVM HTN, depression, breast cancer with mast 02/21 PCP appt Contacted for: Routine Telephonic Outreach Contact made with patient: No, left message. Owen Lopez RN January 31, 2023 1:52 PM documented in this encounterC[facility]09-26-2023 Miscellaneous Notes* Telephone Encounter - Lexy Garcia - 01/10/2023 7:32 AM EDT Patient given results and verbalized understanding of instructions given. Lexy Garcia * Telephone Encounter - Lexy Garcia - 01/10/2023 7:32 AM EDT ----- Message from Patience Winter APRN.CONSULAR OFFICER sent at 01/10/2023 7:23 AM EDT ----- Please advise patient the COVID test was negative. documented in this encounterC[facility] Clinic [facility]09-25-2023 History of Present illness Narrative* Grace [...] 09, 2023 11:19 AM documented in this encounterC[facility]09-22-2023 Miscellaneous Notes* Telephone Encounter - Fabiana De Los Santos LPN - 01/06/2023 4:32 PM EDT Patient notified. Fabiana De Los Santos LPN * Telephone Encounter - 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 APRN.CNP - 01/06/2023 2:33 PM EDT Please inform pt. that her mammogram looks good. Follow up as scheduled. Thank you. 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 APRN.CONSULAR OFFICER documented in this encounterC[facility]09-22-2023 Miscellaneous Notes* Telephone Encounter - Jodie [...] and advise. Rama Kinney documented in this encounterC[facility]09-21-2023 History of Present illness Narrative* Kiya [...] IV DATA: Not applicable SIGNED BY: RT Allne(R) January 05, 2023 11:01 AM documented in this encounterC[facility]09-19-2023 History of Present illness Narrative* Owen Lopez RN - 01/03/2023 1:36 PM EDT [facility] Telephonic Outreach Provider Action/MISBAH DURON HTN breast cancer depression 921 mammogram 02/21 PCP f/u Contacted for: Routine Telephonic Outreach Contact made with patient: No, left message. Owen Lopez RN January 03, 2023 1:44 PM documented in this encounterC[facility]08-22-2023 History of Present illness Narrative* Owen Lopez RN - 12/06/2022 2:57 PM EDT [facility] Telephonic Outreach Provider Action/FYI LVM HTN breast cancer depression 02/15 PCP f/u Contacted for: Routine Telephonic Outreach Contact made with patient: No, left message. Owen Lopez RN December 06, 2022 2:59 PM documented in this encounterC[facility]08-21-2023 Miscellaneous Notes* Telephone Encounter - Tiarra [...] notify patient. Tiarra Adler documented in this encounterC[facility] Clinic [facility]08-18-2023 History of Present illness Narrative* Elissa [...] volume. 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 APRN.CONSULAR OFFICER documented in this encounterC[facility]07-28-2023 History of Present illness Narrative* Owen [...] daily weight at home? No Based on otr driver, the following disposition is advised: No symptoms or symptoms present, not severe. Routed to: No Action Needed ABNER Education Provided this Outreach: No Owen Lopez RN November 11, 2022 2:19 PM documented in this encounterC[facility]06-30-2023 History of Present illness Narrative* Owen Lopez RN - 10/14/2022 2:00 PM EDT [facility] Telephonic Outreach Provider Scooter/MISBAH LVM HTN depression Contacted for: Routine Telephonic Outreach Contact made with patient: No, left message. Owen Lopez RN October 14, 2022 2:02 PM documented in this encounterC[facility]06-20-2023 Miscellaneous Notes* Telephone Encounter - Irasema [...] patient. Amparo Brown Pss documented in this encounterC[facility]06-14-2023 Miscellaneous Notes* Telephone Encounter - Silvia [...] notify patient. Silvia Aviles documented in this encounterC[facility]06-01-2023 History of Present illness Narrative* Owen Lopez RN - 09/15/2022 11:31 AM EDT [facility] Telephonic Outreach Provider Action/FYI LVM HTN depression Contacted for: Routine Telephonic Outreach Contact made with patient: No, left message. Owen Lopez RN September 15, 2022 11:32 AM documented in this encounterC[facility]05-04-2023 History of Present illness Narrative* Owen Lopez RN - 08/18/2022 9:30 AM EDT Care Coordination Deferred Outreach Provider Action / FYI: Pt seen by PCP in office on 08/15 therefore outreach deferred Deferred outreach to patient at this time due to: Visit with provider today Next Outreach date: 09/15/22 Owen Lopez RN August 18, 2022 9:30 AM documented in this encounterC[facility]05-03-2023 Miscellaneous Notes* Telephone Encounter - Shayla [...] stable Vini Sparks DO documented in this encounterCleveland Clinic [facility] Hospital05-01-2023 Miscellaneous Notes* Addendum Note - Vini Sparks DO - 08/15/2022 11:59 AM EDTAddended by: VINI SPARKS on: 08/15/2022 11:59 AM Modules accepted: Orders documented in this encounterC[facility] Clinic [facility]05-01-2023 History of Present illness Narrative* Vini [...] SHOULDER Left 01/09/2019 Dr. David Nieto @ [facility]; L reverse total shoulder replacement; L [...] no details, 85 Coronary Artery Disease Father [place], 94 Cancer Sister 57 liver Cancer Brother [...] agreed with the plan. Vini Sparks DO [address] [place] [address] documented in this encounterC[facility]04-25-2023 Miscellaneous Notes* Telephone Encounter - Jenniferjignesh Haskins [facility] - 08/09/2022 10:39 AM EDT Patient has been identified by name and date of : Yes Requested Prescriptions Pending Prescriptions Disp Refills metoprolol tartrate, short acting, (LOPRESSOR) 50 mg tablet 180 tablet 3 Sig: Take 1 tablet by mouth twice daily. RX INSTRUCTIONS: Patient aware RX will be sent to pharmacy. No need to notify patient. Jennifer Haskins [facility] documented in this encounterCleveland [facility]04-19-[facility] History of Present illness Narrative* Owen Lopez RN - 08/03/2022 2:38 PM EDT CDM Telephonic Outreach Provider Action/FYI LVM HTN depression 08/15 PCP appt Contacted for: Routine Telephonic Outreach Contact made with patient: No, left message. Owen Lopez RN August 03, 2022 2:39 PM documented in this encounterCleveland Clinic [facility]04-12-2023 Miscellaneous Notes* Telephone Encounter - Erik [...] triage and will callpharmacy. Hello, you've reached [facility], my name is [...] care for new/worsening symptoms. documented in this encounterCleveland Clinic [facility]04-03-2023 Miscellaneous Notes* Telephone Encounter - Kiya [...] advise. Kiya Jamison LPN documented in this encounterCleveland Clinic [facility]03-22-2023 History of Present illness Narrative* Owen [...] like to speak with a social work seafood service team member to help give you support for any [...] you up for automated weekly questionnaires through [employer]. This is an easy way for us [...] PtOutreach and End outreach. documented in this encounterCleveland Clinic [facility]view Hospital02-27-2023 History of Present illness Narrative* Radha Jurado APRN.CONSULAR OFFICER - 06/13/2022 11:09 AM EST Chief Complaint [...] SHOULDER Left 01/09/2019 Dr. David Nieto @ [facility]; L reverse total shoulder replacement; L [...] no details, 85 Coronary Artery Disease Father [place], 94 Cancer Sister 57 liver Cancer Brother [...] TABLET Radha Jurado APRN.MARYANA documented in this encounterCleveland Clinic [facility]02-02-2023 Miscellaneous Notes* Telephone Encounter - Zayda Spence LPN - 05/19/2022 9:50 AM EST Rec'd covermymed PA for sertraline 25 mg. Called the pharmacy pt paid al for this rx. The issue would be the dose and qty. Insurance would not this to be 50 mg one daily not 25 mg two daily for next refill. documented in this encounterCleveland Clinic [facility]01-30-2023 Miscellaneous Notes* Telephone Encounter - Purnima Galvez LPN - 05/16/2022 9:35 AM EST Patient returned call and went over notes below from Dr Sparks with understanding.Patient had already picked up rx and stated medication. Scheduled appt with PROPOSAL LEAD WRITER for 06/13/2022. * Telephone Encounter - Deana [...] would like it to go to [facility] [place]. Talia Toro RN * Telephone Encounter - Vini Sparks DO - 05/13/2022 7:55 AM EST Patient would need to follow up with [employer] regarding the hormone concerns. I am okay [...] you can talk to? Spouse Protocols used: [id number] HEALTH[facility] AT HOME OUTREACH Provider Action/FYI: Patient feels angry at lot at spouse. States that she feels irritable and can cry at the drop of a hat. Feels that maybe she should go back on a hormone replacement to help stabilize her mood. She does not feel that she is a harm to herself or others. Helreg, you've reached [facility] at Home, my name is Liliana Love [...] please call us back. documented in this encounterCleveland Clinic [facility]view Hospital01-17-2023 Miscellaneous Notes* Telephone Encounter - Estee Alfonso LPN - 05/03/2022 11:32 AM EST Orders faxed. Estee Alfonso LPN * Telephone Encounter - 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 APRN.CNP - 05/03/2022 10:55 AM EST Rx done. 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 APRN.CONSULAR OFFICER * Telephone Encounter - Ashley King - 05/03/2022 10:17 AM EST [facility] is requesting a new prescription for the mastectomy bras [phone]. Ph. [phone]. The patient is eligible to receive 3 bras per year. documented in this encounterCleveland Clinic [facility] Hospital01-11-2023 History of Present illness Narrative* Peace Hylton RN - 04/27/2022 9:12 AM EST [employer] CDM Enrollment Provider Action/FYI: Lexx this is Peace Hylton RN your nurse Screen Door Maker. I am calling to provide you with a phonenumber to connect you with [facility] services. This number is available 7 days a week from 8am-8pm and provides you with one call access to nursing, appointments, and other valuable resources.I can also send this information to your [employer]. Please take the time to write this number down . - AGREES TO MONTHLY OUTREACHES - DENIES NEEDS OR CONCERNS AT THIS TIME Patient referred by: [facility] Alissa Contact made with patient: Yes - Patient identified by name and . Discussed care with patient Lexx this is Peace Hylton RN and I am calling from Vini Sparks DO office at the [facility]. I am a RN Screen Door Maker with our [employer] Chronic Disease Management program. [...] few questions once a week through your [employer] account. It will automatically show up for [...] stressful. Can we connect you with a [facility] Quail Farmer to find a program that could help [...] from today s date) documented in this encounterCleveland Clinic [facility] Hospital01-09-2023 Miscellaneous Notes* Telephone Encounter - Gloria Jerez Pss - 04/25/2022 8:53 AM EST Pharmacy verified in [facility] Patient has been identified by name [...] advise. Gloria Jerez Pss documented in this encounterCleveland Clinic [facility] Hospital10-20-2022 Miscellaneous Notes* Telephone Encounter - Neha [...] density. Vini Sparks DO documented in this encounterCleveland Clinic Fairview Hospital10-17-2022 Miscellaneous Notes* Telephone Encounter - Neha [...] you, Ayesha Jefferson APRN.MARYANA documented in this encounterCleveland Clinic [facility]view Hospital10-13-2022 Miscellaneous Notes* Telephone Encounter - Neha [...] in potassium. I would like a redraw [facility] tomorrow to reassess this and if still elevated we may need to change HTN regimen. Thank you, Ayesha Jefferson APRN.MARYANA * Telephone Encounter - Ailin Barrow RN - 01/27/2022 1:11 PM EDT Patient calls and is asking about labs results that were done on 01/21/2022. Please review and advise, Ailin Barrow RN documented in this encounterCleveland [id number] History of Present illness Narrative* Ayesha Jefferson, DIMITRIOS.CONSULAR OFFICER - 01/21/2022 11:19 AM EDT Chief Complaint Patient presents with: BP Check HPI Ica Senia Bradshaw is a 81 year old female who presents here today for Above Complaints. Ica is an established patient of Dr. Sparks, and myself. Concerns today... HTN --- 2 ED visits on 01/17 and 01/18 at [place] [facility] for high BP and headaches. Recent [...] was 200s systolic while in office cuff [id number] systolic. Pt does admit BP cuff to [...] SHOULDER Left 01/09/2019 Dr. David Nieto @ [facility]; L reverse total shoulder replacement; L [...] no details, 85 Coronary Artery Disease Father [place], 94 Cancer Sister 57 liver Cancer Brother [...] agreeable to treatment plan. Ayesha Jefferson APRN.CNP [address] [place] [address] documented in this encounterCleveland Clinic [facility] Hospital10-05-2022 Miscellaneous Notes* Telephone Encounter - Ayesha Jefferson APRN.CNP - 01/19/2022 7:36 PM EDT Agree with below. Ayesha Jefferson APRN.CNP * Telephone Encounter - Brigitte Guerra LPN - 01/18/2022 2:09 PM EDT Pt's caregiver calls from [facility] stating this is the second day pt has been to the ER for high blood pressure and headache. Caregiver reports that today pt's bp was over 200 and pt said it felt like her head was going to explode. Spoke to Dr. Sparks who advised that pt should be admitted to the hospital. Caregiver notified ofsa. Brigitte Guerra LPN documented in this encounterCleveland Clinic [facility]view Hospital09-19-2022 Instructions* Patient Instructions* Ashley Flores APRN.CNP - 01/03/2022 2:32 PM EDT 1.) Recommend monitoring blood pressure at home, 1-2 times daily, write down numbers. 2.) Take Metoprolol 1.5 tablets twice daily. 3.) Get plenty of rest and stay hydrated 4.) foreign object removed from left ear. 5.) If symptoms do not improve please contact the office. documented in this encounterCleveland Clinic [facility] Hospital09-19-2022 History of Present illness Narrative* Ashley [...] Used tylenol and dramamine. The medication helped. Roland better today. Blood pressure was elevated at [...] SHOULDER Left 01/09/2019 Dr. David Nieto @ [facility]; L reverse total shoulder replacement; L [...] no details, 85 Coronary Artery Disease [place], 94 Cancer Sister 57 liver Cancer Brother [...] APRN.MARYANA This note was partially generated using [employer] voice recognition system. Note was reviewed for accuracy. There may be minor misspellings or grammar miscues with [employer] voice recognition. documented in this encounterCleveland Clinic [facility]view Hospital09-19-2022 Miscellaneous Notes* Telephone Encounter - Shayla [...] slurred speech. 10. : No Protocols used: [id number] documented in this encounterCleveland Clinic [facility]view Hospital09-16-2022 Miscellaneous Notes* Telephone Encounter - Fabiana De Los Santos LPN - 12/31/2021 3:19 PM EDT Patient notified. Fabiana De Los Santos LPN * Telephone Encounter - 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 APRN.CNP - 12/31/2021 3:01 PM EDT Please inform pt. that her mammogram looks good. Follow up as scheduled. Thank you. 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 APRN.MARYANA documented in this encounterCleveland Clinic [facility] Hospital09-16-2022 Miscellaneous Notes* Letter - Mammography Coordinator - 12/31/2021 1:03 PM EDT December 31, 2021 PID: [id number] Harjit Bradshaw [address] [place] [id number] Dear Ms. Bradshaw, We are pleased to [...] report will be kept on file at [facility] as part of your permanent medical record and are available for your continuing care. Thank you for allowing us to help in meeting your health care needs. Sincerely, Dr. Sloan Interpreting Radiologist [facility] (Normal over 40) documented in this encounterCleveland Clinic [facility]09-16-2022 History of Present illness Narrative* RT [...] 31, 2021 11:00 AM documented in this encounterCleveland Clinic [facility] Hospital08-31-2022 History of Present illness Narrative* Vini [...] months in [facility] She was seen by Deana Du CNP. She was complaining of headaches and dizziness, found to have chronic changes without acute findingon MRI brain. She was started on Zoloft and this was titrated up. Her wellbutrin was stopped. [facility] Mood, feels it is improved, [...] SHOULDER Left 01/09/2019 Dr. David Nieto @ [facility]; L reverse total shoulder replacement; L [...] plan. See patient instructions. Vini Sparks DO [address] [place] [address] documented in this encounterCleveland Clinic [facility] Hospital08-18-2022 History of Present illness Narrative* 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 APRN.CONSULAR OFFICER - 12/02/2021 11:39 AM EDT Chief Complaint [...] volume. 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 APRN.MARYANA documented in this encounterCleveland Clinic [facility] Hospital07-08-2022 Miscellaneous Notes* Telephone Encounter - Purnima Galvez LPN - 10/22/2021 2:24 PM EDT Patient returned call and went over results, notes from Ayesha Jefferson PROPOSAL LEAD WRITER with understanding. * Telephone Encounter - Neha [...] you, Ayesha Jefferson APRN.CNP documented in this encounterCleveland Clinic [facility] Hospital07-07-2022 Instructions* Patient Instructions* Ayesha Jefferson APRN.CNP - 10/21/2021 2:02 PM EDT Blood work today. Decreased zoloft to 100 mcg daily -- 1 tablet vs 1.5 tablets daily. Follow-up in 6 weeks. documented in this encounterCleveland Clinic [facility] Hospital07-07-2022 History of Present illness Narrative* Ayesha [...] SHOULDER Left 01/09/2019 Dr. David Nieto @ [facility]; L reverse total shoulder replacement; L [...] no details, 85 Coronary Artery Disease [place], 94 Cancer Sister 57 liver Cancer Brother [...] agreeable to treatment plan. Ayesha Jefferson APRN.MARYANA [address] [place] [address] documented in this encounterCleveland Clinic [facility] Hospital06-27-2022 Miscellaneous Notes* Telephone Encounter - Danielito [...] patient. María Elena Brown documented in this encounterCleveland Clinic [facility] Hospital06-15-2022 Miscellaneous Notes* Telephone Encounter - Shira [...] you, Ayesha Jefferson APRN.MARYANA documented in this encounterCleveland Clinic [facility] Hospital06-11-2022 Miscellaneous Notes* Telephone Encounter - Randy Aguilera LPN - 09/25/2021 8:23 AM EDT Pt. informed. Randy Aguilera LPN * Telephone Encounter - Radha Jurado APRN.CNP - 09/24/2021 4:50 PM EDT Please let ICA know that the CT of her brain looks good, no concerns. Radha Jurado APRN.CNP documented in this encounterCleveland Clinic [facility] Hospital06-10-2022 Instructions* Patient Instructions* Radha Jurado APRN.CNP - 09/24/2021 1:21 PM EDT Schedule your carotid ultrasound and CT scan. Go to the ED if this happens again! documented in this encounterCleveland Clinic [facility] Hospital06-10-2022 History of Present illness Narrative* Radha [...] SHOULDER Left 01/09/2019 Dr. David Nieto @ [facility]; L reverse total shoulder replacement; L [...] no details, 85 Coronary Artery Disease Father [place], 94 Cancer Sister 57 liver Cancer Brother [...] BLD Radha Jurado APRN.CNP documented in this encounterSam[facility]* Diagnosis Transient cerebral ischemia, unspecified type- Primary Generalized weakness Other malaise and fatigue Aphasia Blurred vision Other specified visual disturbances documented in this encounter [facility] noteNo assessment information availableWOhio State University [facility] Work Phone: Evaluation note* Diagnosis Anxious mood- Primary Anxiety state, unspecified Excessive sweating Generalized hyperhidrosis Dysthymia Dysthymic disorder Vitamin D deficiency Unspecified vitamin D deficiency documented in this encounter [facility]* Diagnosis 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 in female, estrogen receptor positive (HCC)- Primary Encounter for screening mammogram for high-risk patient documented in this encounter [facility]* Diagnosis Anxious mood- Primary Anxiety state, [...] Fatigue, unspecified type documented [facility] this encounter [facility]* Diagnosis 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 in female, estrogen receptor positive (HCC) Encounter for screening mammogram for high-risk patient documented in this encounter [facility]* Diagnosis HYPERTENSION BENIGN- Primary Essential hypertension, benign Ear foreign body, left, initial encounter documented in this encounter [facility]* Diagnosis HYPERTENSION BENIGN- Primary Essential hypertension, benign Encounter for immunization Need for other specified prophylactic vaccination against single bacterial disease PALMA (generalized anxiety disorder) Generalized anxiety disorder Headaches Dyslipidemia Other and unspecified hyperlipidemia Hypothyroidism, acquired Unspecified hypothyroidism Fatigue, unspecified type documented in this encounter [facility]* Diagnosis Serum potassium elevated- Primary Hyperpotassemia documented in this encounter [facility]* Diagnosis HYPERTENSION BENIGN Essential hypertension, benign documented in this encounter [facility]* Diagnosis Vertigo- Primary Dizziness and giddiness documented in this encounter [facility]* Diagnosis 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 in female, estrogen receptor positive (HCC)- Primary documented in this encounter [facility]* Diagnosis Dysthymia- Primary Dysthymic disorder documented in this encounter [facility]* Diagnosis 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 (HCC)- Primary documented in this encounter [facility]* Diagnosis Dysthymia Dysthymic disorder documented in this encounter [facility]* Diagnosis HYPERTENSION BENIGN Essential hypertension, benign documented in this encounter [facility]* Diagnosis Essential hypertension, benign- Primary Dyslipidemia [...] recurrent episode, unspecified documented in this encounter [facility]* Diagnosis HYPERTENSION BENIGN Essential hypertension, benign documented in this encounter [facility]* Diagnosis Dysthymia Dysthymic disorder HYPERTENSION BENIGN Essential hypertension, benign documented in this encounter [facility]* Diagnosis 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 in female, estrogen receptor positive (HCC)- Primary Encounter for screening mammogram for high-risk patient Depression, recurrent (HCC) Major depressive disorder, recurrent episode, unspecified documented in this encounter [facility]* Diagnosis HYPERTENSION BENIGN Essential hypertension, benign documented in this encounter [facility]* Diagnosis Dysthymia Dysthymic disorder documented in this encounter [facility]* Diagnosis Encounter for immunization- Primary Need for other specified prophylactic vaccination against single bacterial disease documented in this encounter [facility]* Diagnosis 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 in female, estrogen receptor positive (HCC)- Primary H/O left mastectomy Acquired absence of breast and nipple documented in this encounter [facility]* Diagnosis 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 in female, estrogen receptor positive (HCC) Encounter for screening mammogram for high-risk patient documented in this encounter [facility]* Diagnosis Dyslipidemia Other and unspecified hyperlipidemia documented in this encounter [facility]* Diagnosis Viral URI with cough- Primary Acute upper respiratory infections of unspecified site Exposure to COVID-19 virus documented in this encounter [facility]* Diagnosis HYPERTENSION BENIGN Essential hypertension, benign Dysthymia Dysthymic disorder documented in this encounter [facility]* Diagnosis Dyslipidemia- Primary Other and unspecified [...] receptor positive (HCC) documented in this encounter [facility]* Diagnosis HYPERTENSION BENIGN Essential hypertension, benign documented in this encounter [facility]* Diagnosis Dysthymia Dysthymic disorder documented in this encounter [facility]* Diagnosis Personal history of breast cancer- Primary Personal history of malignant neoplasm of breast Encounter for screening mammogram for high-risk patient documented in this encounter [facility]* Diagnosis Acute cough [facility] Diagnosis Personal history of breast cancer Personal history of malignant neoplasm of breast Encounter for screening mammogram for high-risk patient documented in this encounter [facility]* Diagnosis 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 in female, estrogen receptor positive (HCC)- Primary Encounter for screening mammogram for high-risk patient [facility]* Diagnosis HYPERTENSION BENIGN Essential hypertension, benign documented in this encounter [facility]* Diagnosis Hypothyroidism, acquired- Primary Unspecified hypothyroidism Dyslipidemia Other and unspecified hyperlipidemia Vitamin D deficiency Unspecified vitamin D deficiency Vitamin B12 deficiency Other B-complex deficiencies documented in this encounter [facility]* Diagnosis Dysthymia Dysthymic disorder documented in this encounter [facility] note* Diagnosis Hypothyroidism, acquired- Primary Unspecified hypothyroidism [...] Fatigue, unspecified type documented [facility]* Diagnosis Dysthymia Dysthymic disorder documented [facility]* Diagnosis PALMA (generalized anxiety disorder)- Primary Generalized anxiety disorder Dysthymia Dysthymic disorder documented [facility]* Diagnosis Medicare annual wellness visit, subsequent- [...] unspecified type (HCC) documented [facility] this [facility]* Diagnosis Hyperkalemia- Primary Hyperpotassemia documented in this encounter [facility]* Diagnosis HYPERTENSION BENIGN Essential hypertension, benign documented in this encounter [facility] note* Diagnosis Dyslipidemia Other and unspecified hyperlipidemia HYPERTENSION BENIGN Essential hypertension, benign documented in this encounter [facility] for referral (narrative)* Diagnostic Procedure Only (Routine) - Authorized Specialty Diagnoses / Procedures Referred By Ebenezer t Referred To Contact [facility] Diagnoses 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 in female, estrogen receptor positive (HCC) Encounter for screening mammogram for high-risk patient Procedures AMBROSE SCREENING W ORACIO SCREENING DIGITAL BREAST TOMOSYNTHESIS BI SCREENING MAMMOGRAPHY BI 2-VIEW BREAST INC Elissa Flores APRN.CONSULAR OFFICER [address] [place] [address] [facility] [address] [place] [address] Referral ID Status Reason Start Date Expiration Date Visits Requested Visits Authorized [id number] Authorized Auto-Generat ed Referral 12/02/2021 01/01/2023 1 1 T [facility] for referral (narrative)* Diagnostic Procedure Only (Routine) - Closed Specialty Diagnoses / Procedures Referred By Contac t Referred To Contact [facility] Diagnoses 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 in female, estrogen receptor positive (HCC) Encounter for screening mammogram for high-risk patient Procedures AMBROSE SCREENING W ORACIO SCREENING DIGITAL BREAST TOMOSYNTHESIS BI SCREENING MAMMOGRAPHY BI 2-VIEW BREAST INC [facility] 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 APRN.CONSULAR OFFICER [address] [place] [address] [facility] [address] [place] [address] Referral ID Status Reason Start Date Expiration Date V isits Requested Visits Authorized [id number] Closed Auto-Generate d Referral 12/02/2021 01/01/2023 1 1 T [facility] for referral (narrative)* Diagnostic Procedure Only (Routine) - Authorized Specialty Diagnoses / Procedures Referred By Contac t Referred To Contact [facility] Diagnoses 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 in female, estrogen receptor positive (HCC) Encounter for screening mammogram for high-risk patient Procedures AMBROSE SCREENING W ORACIO SCREENING DIGITAL BREAST TOMOSYNTHESIS BI SCREENING MAMMOGRAPHY BI 2-VIEW BREAST INC Elissa Flores APRN.CONSULAR OFFICER [address] [place] [address] [facility] [address] [place] [address] Referral ID Status Reason Start Date Expiration Date Visits Requested Visits Authorized [id number] Authorized Auto-Generat ed Referral 12/02/2022 01/01/2024 1 1 T [facility] for referral (narrative)* Diagnostic Procedure Only (Routine) - Closed Specialty Diagnoses / Procedures Referred By Contac t Referred To Contact [facility] Diagnoses 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 in female, estrogen receptor positive (HCC) Encounter for screening mammogram for high-risk patient Procedures AMBROSE SCREENING W ORACIO SCREENING DIGITAL BREAST TOMOSYNTHESIS BI SCREENING MAMMOGRAPHY BI 2-VIEW BREAST INC [facility] 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 APRN.CONSULAR OFFICER [address] [place] [address] [facility] [address] [place] [address] Referral ID Status Reason Start Date Expiration Date V isits Requested Visits Authorized [id number] Closed Auto-Generate d Referral 12/02/2022 01/01/2024 1 1 [facility] for referral (narrative)* Diagnostic Procedure Only (Routine) - Authorized Specialty Diagnoses / Procedures Referred By Contac t Referred To Contact [facility] Diagnoses Personal history of breast cancer Encounter for screening mammogram for high-risk patient Procedures AMBROSE SCREENING W ORACIO SCREENING DIGITAL BREAST TOMOSYNTHESIS BI SCREENING MAMMOGRAPHY BI 2-VIEW BREAST INC Elissa Flores APRN.CONSULAR OFFICER [address] [place] [address] [facility] [address] [place] [address] Referral ID Status Reason Start Date Expiration Date Visits Requested Visits Authorized [id number] Authorized Auto-Generat ed Referral 12/04/2023 01/02/2025 1 1 [facility] for referral (narrative)* Diagnostic Procedure Only (Routine) - Authorized Specialty Diagnoses / Procedures Referred By Contac t Referred To Contact [facility] Diagnoses 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 in female, estrogen receptor positive (HCC) Encounter for screening mammogram for high-risk patient Procedures AMBROSE SCREENING W ORACIO SCREENING DIGITAL BREAST TOMOSYNTHESIS BI SCREENING MAMMOGRAPHY BI 2-VIEW BREAST INC [facility] 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 APRN.CONSULAR OFFICER [address] [place] [address] [facility] [address] [place] [address] Referral ID Status Reason Start Date Expiration Date Visits Requested Visits Authorized [id number] Authorized Auto-Generat ed Referral 01/10/2025 02/09/2025 1 1 [facility] for referral (narrative)No reason for referral information [facility]: Reason for visit Narrative* [...] MAMMOGRAPHY BI 2-VIEW BREAST INC Elissa Flores APRN.CONSULAR OFFICER [address] [place] [address] [facility] [address] [place] [address] Referral ID Status Reason Start Date Expiration Date V isits Requested Visits Authorized [id number] Closed Auto-Generate d Referral 12/02/2021 01/01/2023 1 1 [facility] for visit Narrative* Diagnostic Procedure Only (Routine) - Closed Specialty Diagnoses / Procedures Referred By Ebenezer morgan Referred To Contact [facility] Diagnoses 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 in female, estrogen receptor positive (HCC) Encounter for screening mammogram for high-risk patient Procedures AMBROSE SCREENING W ORACIO SCREENING DIGITAL BREAST TOMOSYNTHESIS BI SCREENING MAMMOGRAPHY BI 2-VIEW BREAST INC Elissa Flores APRN.CONSULAR OFFICER [address] [place] [address] [facility] [address] [place] [address] Referral ID Status Reason Start Date Expiration Date V isits Requested Visits Authorized [id number] Closed Auto-Generate d Referral 12/02/2022 01/01/2024 1 1 [facility] for visit Narrative* Diagnostic Procedure Only (Routine) - Closed Specialty Diagnoses / Procedures Referred By Ebenezer morgan Referred To Contact [facility] Diagnoses Personal history of breast cancer Encounter for screening mammogram for high-risk patient Procedures AMBROSE SCREENING W ORACIO SCREENING DIGITAL BREAST TOMOSYNTHESIS BI SCREENING MAMMOGRAPHY BI 2-VIEW BREAST INC CAD 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, AGILE COACH.CONSULAR OFFICER [address] [place] [address] [facility] [address] [place] [address] Referral ID Status Reason Start Date Expiration Date V isits Requested Visits Authorized [id number] Closed Auto-Generate d Referral 12/04/2023 01/02/2025 1 1 [facility] Reason for Referral Specialty Diagnoses / Procedures Referred By Contac t Referred To Contact CT IMAGING Diagnoses Transient cerebral ischemia, unspecified type Generalized weakness Aphasia Blurred vision Procedures CT BRAIN WO IVCON CT HEAD/BRAIN W/O CONTRAST MATERIAL Radha Jurado, AGILE COACH.CONSULAR OFFICER [address] [place] [address] Ct Imaging Referral ID Status Reason Start Date Expiration Date Visits Requested Visits Authorized [id number] Pending Review Auto-Generat ed Referral 09/24/2021 10/24/2022 1 1 Specialty Diagnoses / Procedures Referred By Contac t [facility]erred [facility] Diagnoses Transient cerebral ischemia, unspecified type Generalized weakness Aphasia Blurred vision Procedures ECG COMPLETE ECG ROUTINE ECG W/LEAST 12 LDS W/I&R Radha Jurado, AGILE COACH.CONSULAR OFFICER [address] [place] [address] [facility] [address] [place] [address] Referral ID Status Reason Start Date Expiration Date V isits Requested Visits Authorized [id number] Closed Auto-Generate d Referral 09/24/2021 09/24/2022 1 1 Specialty Diagnoses / Procedures Referred By Contac t Referred To Contact [facility] Diagnoses Transient cerebral ischemia, unspecified type Generalized weakness Aphasia Blurred vision Procedures US CAROTID BILAT Radha Jurado, AGILE COACH.CONSULAR OFFICER [address] [place] [address] [facility] Referral ID Status Reason Start Date Expiration Date Visits Requested Visits Authorized [id number] Authorized Auto-Generat ed Referral 09/24/2021 10/24/2022 1 1 Specialty Diagnoses / Procedures Referred By Contac t Referred To Contact Diagnoses 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 in female, estrogen receptor positive (HCC) Procedures BREAST PROSTHESIS, MASTECTOMY BRA 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, AGILE COACH.CONSULAR OFFICER [address] [place] [address] Referral ID Status Reason Start Date Expiration Date V isits Requested Visits Authorized [id number] Closed PCP Requested Referral 05/03/2022 08/01/2022 1 1 Specialty Diagnoses / Procedures Referred By Contac t Referred To Contact Diagnoses 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 (HCC) Procedures BREAST PROSTHESIS, MASTECTOMY BRA 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, AGILE COACH.CONSULAR OFFICER [address] [place] [address] Referral ID Status Reason Start Date Expiration Date V isits Requested Visits Authorized [id number] Closed PCP Requested Referral 05/16/2022 08/14/2022 1 1 Specialty Diagnoses / Procedures Referred By Contac t Referred To Contact Diagnoses 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 (HCC) Procedures BREAST PROSTHESIS, SILICONE 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, AGILE COACH.CONSULAR OFFICER [address] [place] [address] Referral ID Status Reason Start Date Expiration Date V isits Requested Visits Authorized [id number] Closed PCP Requested Referral 05/16/2022 08/14/2022 1 [...] Will Yes June 10 5:52pm Power of Cherry Cutter Yes June 10, 2019 5:52pm Advance [...] or prosecute any alcohol or drug abuse patient.[facility] the event this information is protected by the Federal Confidentiality of Alcohol and Drug Abuse Patient Records regulations: The Federal rules restrict any use of the information to criminally investigate or prosecute any alcohol or drug abuse patient.[facility] the event this information is protected by the Federal Confidentiality of Alcohol and Drug Abuse Patient Records regulations: The Federal rules restrict any use of the information to criminally investigate or prosecute any alcohol or drug abuse patient.[facility] the event this information is protected by the Federal Confidentiality of Alcohol and Drug Abuse Patient Records regulations: The Federal rules restrict any use of the information to criminally investigate or prosecute any alcohol or drug abuse patient.[facility] HospitalIn the event this information is protected by the Federal Confidentiality of Alcohol and Drug Abuse Patient Records regulations: The Federal rules restrict any use of the information to criminally investigate or prosecute any alcohol or drug abuse patient.[facility] HospitalIn the event this information is protected by the Federal Confidentiality of Alcohol and Drug Abuse Patient Records regulations: The Federal rules restrict any use of the information to criminally investigate or prosecute any alcohol or drug abuse patient.[facility] HospitalIn the event this information is protected by the Federal Confidentiality of Alcohol and Drug Abuse Patient Records regulations: The Federal rules restrict any use of the information to criminally investigate or prosecute any alcohol or drug abuse patient.[facility] HospitalIn the event this information is protected by the Federal Confidentiality of Alcohol and Drug Abuse Patient Records regulations: The Federal rules restrict any use of the information to criminally investigate or prosecute any alcohol or drug abuse patient.[facility] HospitalIn the event this information is protected by the Federal Confidentiality of Alcohol and Drug Abuse Patient Records regulations: The Federal rules restrict any use of the information to criminally investigate or prosecute any alcohol or drug abuse patient.[facility] HospitalIn the event this information is protected by the Federal Confidentiality of Alcohol and Drug Abuse Patient Records regulations: The Federal rules restrict any use of the information to criminally investigate or prosecute any alcohol or drug abuse patient.[facility] Hospital[facility] the event this information is protected by the Federal Confidentiality of Alcohol and Drug Abuse Patient Records regulations: The Federal rules restrict any use of the information to criminally investigate or prosecute any alcohol or drug abuse patient.[facility] HospitalIn the event this information is protected by the Federal Confidentiality of Alcohol and Drug Abuse Patient Records regulations: The Federal rules restrict any use of the information to criminally investigate or prosecute any alcohol or drug abuse patient.[facility] HospitalIn the event this information is protected by the Federal Confidentiality of Alcohol and Drug Abuse Patient Records regulations: The Federal rules restrict any use of the information to criminally investigate or prosecute any alcohol or drug abuse patient.[facility] HospitalIn the event this information is protected by the Federal Confidentiality of Alcohol and Drug Abuse Patient Records regulations: The Federal rules restrict any use of the information to criminally investigate or prosecute any alcohol or drug abuse patient.[facility] HospitalIn the event this information is protected by the Federal Confidentiality of Alcohol and Drug Abuse Patient Records regulations: The Federal rules restrict any use of the information to criminally investigate or prosecute any alcohol or drug abuse patient.[facility] HospitalIn the event this information is protected by the Federal Confidentiality of Alcohol and Drug Abuse Patient Records regulations: The Federal rules restrict any use of the information to criminally investigate or prosecute any alcohol or drug abuse patient.[facility] HospitalIn the event this information is protected by the Federal Confidentiality of Alcohol and Drug Abuse Patient Records regulations: The Federal rules restrict any use of the information to criminally investigate or prosecute any alcohol or drug abuse patient.[facility] HospitalIn the event this information is protected by the Federal Confidentiality of Alcohol and Drug Abuse Patient Records regulations: The Federal rules restrict any use of the information to criminally investigate or prosecute any alcohol or drug abuse patient.[facility] HospitalIn the event this information is protected by the Federal Confidentiality of Alcohol and Drug Abuse Patient Records regulations: The Federal rules restrict any use of the information to criminally investigate or prosecute any alcohol or drug abuse patient.[facility] HospitalIn the event this information is protected by the Federal Confidentiality of Alcohol and Drug Abuse Patient Records regulations: The Federal rules restrict any use of the information to criminally investigate or prosecute any alcohol or drug abuse patient.[facility] HospitalIn the event this information is protected by the Federal Confidentiality of Alcohol and Drug Abuse Patient Records regulations: The Federal rules restrict any use of the information to criminally investigate or prosecute any alcohol or drug abuse patient.[facility] HospitalIn the event this information is protected by the Federal Confidentiality of Alcohol and Drug Abuse Patient Records regulations: The Federal rules restrict any use of the information to criminally investigate or prosecute any alcohol or drug abuse patient.[facility] HospitalIn the event this information is protected by the Federal Confidentiality of Alcohol and Drug Abuse Patient Records regulations: The Federal rules restrict any use of the information to criminally investigate or prosecute any alcohol or drug abuse patient.[facility] HospitalIn the event this information is protected by the Federal Confidentiality of Alcohol and Drug Abuse Patient Records regulations: The Federal rules restrict any use of the information to criminally investigate or prosecute any alcohol or drug abuse patient.[facility] HospitalIn the event this information is protected by the Federal Confidentiality of Alcohol and Drug Abuse Patient Records regulations: The Federal rules restrict any use of the information to criminally investigate or prosecute any alcohol or drug abuse patient.[facility] HospitalIn the event this information is protected by the Federal Confidentiality of Alcohol and Drug Abuse Patient Records regulations: The Federal rules restrict any use of the information to criminally investigate or prosecute any alcohol or drug abuse patient.[facility] HospitalIn the event this information is protected by the Federal Confidentiality of Alcohol and Drug Abuse Patient Records regulations: The Federal rules restrict any use of the information to criminally investigate or prosecute any alcohol or drug abuse patient.[facility] HospitalIn the event this information is protected by the Federal Confidentiality of Alcohol and Drug Abuse Patient Records regulations: The Federal rules restrict any use of the information to criminally investigate or prosecute any alcohol or drug abuse patient.[facility] HospitalIn the event this information is protected by the Federal Confidentiality of Alcohol and Drug Abuse Patient Records regulations: The Federal rules restrict any use of the information to criminally investigate or prosecute any alcohol or drug abuse patient.[facility] HospitalIn the event this information is protected by the Federal Confidentiality of Alcohol and Drug Abuse Patient Records regulations: The Federal rules restrict any use of the information to criminally investigate or prosecute any alcohol or drug abuse patient.[facility] HospitalIn the event this information is protected by the Federal Confidentiality of Alcohol and Drug Abuse Patient Records regulations: The Federal rules restrict any use of the information to criminally investigate or prosecute any alcohol or drug abuse patient.[facility] HospitalIn the event this information is protected by the Federal Confidentiality of Alcohol and Drug Abuse Patient Records regulations: The Federal rules restrict any use of the information to criminally investigate or prosecute any alcohol or drug abuse patient.[facility] HospitalIn the event this information is protected by the Federal Confidentiality of Alcohol and Drug Abuse Patient Records regulations: The Federal rules restrict any use of the information to criminally investigate or prosecute any alcohol or drug abuse patient.[facility] HospitalIn the event this information is protected by the Federal Confidentiality of Alcohol and Drug Abuse Patient Records regulations: The Federal rules restrict any use of the information to criminally investigate or prosecute any alcohol or drug abuse patient.[facility] HospitalIn the event this information is protected by the Federal Confidentiality of Alcohol and Drug Abuse Patient Records regulations: The Federal rules restrict any use of the information to criminally investigate or prosecute any alcohol or drug abuse patient.[facility] HospitalIn the event this information is protected by the Federal Confidentiality of Alcohol and Drug Abuse Patient Records regulations: The Federal rules restrict any use of the information to criminally investigate or prosecute any alcohol or drug abuse patient.[facility] HospitalIn the event this information is protected by the Federal Confidentiality of Alcohol and Drug Abuse Patient Records regulations: The Federal rules restrict any use of the information to criminally investigate or prosecute any alcohol or drug abuse patient.[facility] HospitalIn the event this information is protected by the Federal Confidentiality of Alcohol and Drug Abuse Patient Records regulations: The Federal rules restrict any use of the information to criminally investigate or prosecute any alcohol or drug abuse patient.[facility] HospitalIn the event this information is protected by the Federal Confidentiality of Alcohol and Drug Abuse Patient Records regulations: The Federal rules restrict any use of the information to criminally investigate or prosecute any alcohol or drug abuse patient.[facility] HospitalIn the event this information is protected by the Federal Confidentiality of Alcohol and Drug Abuse Patient Records regulations: The Federal rules restrict any use of the information to criminally investigate or prosecute any alcohol or drug abuse patient.[facility] HospitalIn the event this information is protected by the Federal Confidentiality of Alcohol and Drug Abuse Patient Records regulations: The Federal rules restrict any use of the information to criminally investigate or prosecute any alcohol or drug abuse patient.[facility] HospitalIn the event this information is protected by the Federal Confidentiality of Alcohol and Drug Abuse Patient Records regulations: The Federal rules restrict any use of the information to criminally investigate or prosecute any alcohol or drug abuse patient.[facility] HospitalIn the event this information is protected by the Federal Confidentiality of Alcohol and Drug Abuse Patient Records regulations: The Federal rules restrict any use of the information to criminally investigate or prosecute any alcohol or drug abuse patient.[facility] HospitalIn the event this information is protected by the Federal Confidentiality of Alcohol and Drug Abuse Patient Records regulations: The Federal rules restrict any use of the information to criminally investigate or prosecute any alcohol or drug abuse patient.[facility] HospitalIn the event this information is protected by the Federal Confidentiality of Alcohol and Drug Abuse Patient Records regulations: The Federal rules restrict any use of the information to criminally investigate or prosecute any alcohol or drug abuse patient.[facility] HospitalIn the event this information is protected by the Federal Confidentiality of Alcohol and Drug Abuse Patient Records regulations: The Federal rules restrict any use of the information to criminally investigate or prosecute any alcohol or drug abuse patient.[facility] HospitalIn the event this information is protected by the Federal Confidentiality of Alcohol and Drug Abuse Patient Records regulations: The Federal rules restrict any use of the information to criminally investigate or prosecute any alcohol or drug abuse patient.[facility] HospitalIn the event this information is protected by the Federal Confidentiality of Alcohol and Drug Abuse Patient Records regulations: The Federal rules restrict any use of the information to criminally investigate or prosecute any alcohol or drug abuse patient.[facility] HospitalIn the event this information is protected by the Federal Confidentiality of Alcohol and Drug Abuse Patient Records regulations: The Federal rules restrict any use of the information to criminally investigate or prosecute any alcohol or drug abuse patient.[facility] HospitalIn the event this information is protected by the Federal Confidentiality of Alcohol and Drug Abuse Patient Records regulations: The Federal rules restrict any use of the information to criminally investigate or prosecute any alcohol or drug abuse patient.[facility] HospitalIn the event this information is protected by the Federal Confidentiality of Alcohol and Drug Abuse Patient Records regulations: The Federal rules restrict any use of the information to criminally investigate or prosecute any alcohol or drug abuse patient.[facility] HospitalIn the event this information is protected by the Federal Confidentiality of Alcohol and Drug Abuse Patient Records regulations: The Federal rules restrict any use of the information to criminally investigate or prosecute any alcohol or drug abuse patient.[facility] HospitalIn the event this information is protected by the Federal Confidentiality of Alcohol and Drug Abuse Patient Records regulations: The Federal rules restrict any use of the information to criminally investigate or prosecute any alcohol or drug abuse patient.[facility] HospitalIn the event this information is protected by the Federal Confidentiality of Alcohol and Drug Abuse Patient Records regulations: The Federal rules restrict any use of the information to criminally investigate or prosecute any alcohol or drug abuse patient.[facility] HospitalIn the event this information is protected by the Federal Confidentiality of Alcohol and Drug Abuse Patient Records regulations: The Federal rules restrict any use of the information to criminally investigate or prosecute any alcohol or drug abuse patient.[facility] HospitalIn the event this information is protected by the Federal Confidentiality of Alcohol and Drug Abuse Patient Records regulations: The Federal rules restrict any use of the information to criminally investigate or prosecute any alcohol or drug abuse patient.[facility] HospitalIn the event this information is protected by the Federal Confidentiality of Alcohol and Drug Abuse Patient Records regulations: The Federal rules restrict any use of the information to criminally investigate or prosecute any alcohol or drug abuse patient.[facility] HospitalIn the event this information is protected by the Federal Confidentiality of Alcohol and Drug Abuse Patient Records regulations: The Federal rules restrict any use of the information to criminally investigate or prosecute any alcohol or drug abuse patient.[facility] HospitalIn the event this information is protected by the Federal Confidentiality of Alcohol and Drug Abuse Patient Records regulations: The Federal rules restrict any use of the information to criminally investigate or prosecute any alcohol or drug abuse patient.[facility] HospitalIn the event this information is protected by the Federal Confidentiality of Alcohol and Drug Abuse Patient Records regulations: The Federal rules restrict any use of the information to criminally investigate or prosecute any alcohol or drug abuse patient.[facility] HospitalIn the event this information is protected by the Federal Confidentiality of Alcohol and Drug Abuse Patient Records regulations: The Federal rules restrict any use of the information to criminally investigate or prosecute any alcohol or drug abuse patient.[facility] HospitalIn the event this information is protected by the Federal Confidentiality of Alcohol and Drug Abuse Patient Records regulations: The Federal rules restrict any use of the information to criminally investigate or prosecute any alcohol or drug abuse patient.[facility] HospitalIn the event this information is protected by the Federal Confidentiality of Alcohol and Drug Abuse Patient Records regulations: The Federal rules restrict any use of the information to criminally investigate or prosecute any alcohol or drug abuse patient.[facility] HospitalIn the event this information is protected by the Federal Confidentiality of Alcohol and Drug Abuse Patient Records regulations: The Federal rules restrict any use of the information to criminally investigate or prosecute any alcohol or drug abuse patient.[facility] HospitalIn the event this information is protected by the Federal Confidentiality of Alcohol and Drug Abuse Patient Records regulations: The Federal rules restrict any use of the information to criminally investigate or prosecute any alcohol or drug abuse patient.[facility] HospitalIn the event this information is protected by the Federal Confidentiality of Alcohol and Drug Abuse Patient Records regulations: The Federal rules restrict any use of the information to criminally investigate or prosecute any alcohol or drug abuse patient.[facility] HospitalIn the event this information is protected by the Federal Confidentiality of Alcohol and Drug Abuse Patient Records regulations: The Federal rules restrict any use of the information to criminally investigate or prosecute any alcohol or drug abuse patient.[facility] HospitalIn the event this information is protected by the Federal Confidentiality of Alcohol and Drug Abuse Patient Records regulations: The Federal rules restrict any use of the information to criminally investigate or prosecute any alcohol or drug abuse patient.[facility] HospitalIn the event this information is protected by the Federal Confidentiality of Alcohol and Drug Abuse Patient Records regulations: The Federal rules restrict any use of the information to criminally investigate or prosecute any alcohol or drug abuse patient.[facility] HospitalIn the event this information is protected by the Federal Confidentiality of Alcohol and Drug Abuse Patient Records regulations: The Federal rules restrict any use of the information to criminally investigate or prosecute any alcohol or drug abuse patient.[facility] HospitalIn the event this information is protected by the Federal Confidentiality of Alcohol and Drug Abuse Patient Records regulations: The Federal rules restrict any use of the information to criminally investigate or prosecute any alcohol or drug abuse patient.[facility] HospitalIn the event this information is protected by the Federal Confidentiality of Alcohol and Drug Abuse Patient Records regulations: The Federal rules restrict any use of the information to criminally investigate or prosecute any alcohol or drug abuse patient.[facility] HospitalIn the event this information is protected by the Federal Confidentiality of Alcohol and Drug Abuse Patient Records regulations: The Federal rules restrict any use of the information to criminally investigate or prosecute any alcohol or drug abuse patient.[facility] HospitalIn the event this information is protected by the Federal Confidentiality of Alcohol and Drug Abuse Patient Records regulations: The Federal rules restrict any use of the information to criminally investigate or prosecute any alcohol or drug abuse patient.[facility] HospitalIn the event this information is protected by the Federal Confidentiality of Alcohol and Drug Abuse Patient Records regulations: The Federal rules restrict any use of the information to criminally investigate or prosecute any alcohol or drug abuse patient.[facility] HospitalIn the event this information is protected by the Federal Confidentiality of Alcohol and Drug Abuse Patient Records regulations: The Federal rules restrict any use of the information to criminally investigate or prosecute any alcohol or drug abuse patient.[facility] HospitalIn the event this information is protected by the Federal Confidentiality of Alcohol and Drug Abuse Patient Records regulations: The Federal rules restrict any use of the information to criminally investigate or prosecute any alcohol or drug abuse patient.[facility] HospitalIn the event this information is protected by the Federal Confidentiality of Alcohol and Drug Abuse Patient Records regulations: The Federal rules restrict any use of the information to criminally investigate or prosecute any alcohol or drug abuse patient.[facility] HospitalIn the event this information is protected by the Federal Confidentiality of Alcohol and Drug Abuse Patient Records regulations: The Federal rules restrict any use of the information to criminally investigate or prosecute any alcohol or drug abuse patient.[facility] HospitalIn the event this information is protected by the Federal Confidentiality of Alcohol and Drug Abuse Patient Records regulations: The Federal rules restrict any use of the information to criminally investigate or prosecute any alcohol or drug abuse patient.[facility] HospitalIn the event this information is protected by the Federal Confidentiality of Alcohol and Drug Abuse Patient Records regulations: The Federal rules restrict any use of the information to criminally investigate or prosecute any alcohol or drug abuse patient.[facility] HospitalIn the event this information is protected by the Federal Confidentiality of Alcohol and Drug Abuse Patient Records regulations: The Federal rules restrict any use of the information to criminally investigate or prosecute any alcohol or drug abuse patient.[facility] HospitalIn the event this information is protected by the Federal Confidentiality of Alcohol and Drug Abuse Patient Records regulations: The Federal rules restrict any use of the information to criminally investigate or prosecute any alcohol or drug abuse patient.[facility] HospitalIn the event this information is protected by the Federal Confidentiality of Alcohol and Drug Abuse Patient Records regulations: The Federal rules restrict any use of the information to criminally investigate or prosecute any alcohol or drug abuse patient.[facility] HospitalIn the event this information is protected by the Federal Confidentiality of Alcohol and Drug Abuse Patient Records regulations: The Federal rules restrict any use of the information to criminally investigate or prosecute any alcohol or drug abuse patient.[facility] HospitalIn the event this information is protected by the Federal Confidentiality of Alcohol and Drug Abuse Patient Records regulations: The Federal rules restrict any use of the information to criminally investigate or prosecute any alcohol or drug abuse patient.[facility] HospitalIn the event this information is protected by the Federal Confidentiality of Alcohol and Drug Abuse Patient Records regulations: The Federal rules restrict any use of the information to criminally investigate or prosecute any alcohol or drug abuse patient.[facility] HospitalIn the event this information is protected by the Federal Confidentiality of Alcohol and Drug Abuse Patient Records regulations: The Federal rules restrict any use of the information to criminally investigate or prosecute any alcohol or drug abuse patient.[facility] HospitalIn the event this information is protected by the Federal Confidentiality of Alcohol and Drug Abuse Patient Records regulations: The Federal rules restrict any use of the information to criminally investigate or prosecute any alcohol or drug abuse patient.[facility] HospitalIn the event this information is protected by the Federal Confidentiality of Alcohol and Drug Abuse Patient Records regulations: The Federal rules restrict any use of the information to criminally investigate or prosecute any alcohol or drug abuse patient.[facility] HospitalIn the event this information is protected by the Federal Confidentiality of Alcohol and Drug Abuse Patient Records regulations: The Federal rules restrict any use of the information to criminally investigate or prosecute any alcohol or drug abuse patient.[facility] HospitalIn the event this information is protected by the Federal Confidentiality of Alcohol and Drug Abuse Patient Records regulations: The Federal rules restrict any use of the information to criminally investigate or prosecute any alcohol or drug abuse patient.[facility] HospitalIn the event this information is protected by the Federal Confidentiality of Alcohol and Drug Abuse Patient Records regulations: The Federal rules restrict any use of the information to criminally investigate or prosecute any alcohol or drug abuse patient.[facility] HospitalIn the event this information is protected by the Federal Confidentiality of Alcohol and Drug Abuse Patient Records regulations: The Federal rules restrict any use of the information to criminally investigate or prosecute any alcohol or drug abuse patient.[facility] HospitalIn the event this information is protected by the Federal Confidentiality of Alcohol and Drug Abuse Patient Records regulations: The Federal rules restrict any use of the information to criminally investigate or prosecute any alcohol or drug abuse patient.[facility] HospitalIn the event this information is protected by the Federal Confidentiality of Alcohol and Drug Abuse Patient Records regulations: The Federal rules restrict any use of the information to criminally investigate or prosecute any alcohol or drug abuse patient.[facility] HospitalIn the event this information is protected by the Federal Confidentiality of Alcohol and Drug Abuse Patient Records regulations: The Federal rules restrict any use of the information to criminally investigate or prosecute any alcohol or drug abuse patient.[facility] HospitalIn the event this information is protected by the Federal Confidentiality of Alcohol and Drug Abuse Patient Records regulations: The Federal rules restrict any use of the information to criminally investigate or prosecute any alcohol or drug abuse patient.[facility] Reason for Visit (unrecogniz ed section [...] with + COVI D exposure spouse at [facility] ED Sunday 06/25 Reason Onset Date [...] Navigation Outreach 07/10/2024 Healthy at Home - [facility] Reason Comments Medicare Wellness Exam Reason Comments Medication Problem cost of Eliquis Reason Onset Date Comments Results 09/12/2024 Reason Onset Date Comments Refill Request 09/18/2024 Reason Comments Medication Request Reason Onset Date Comments Refill Request 11/05/2024 Reason Onset Date Comments Population Health Navigation Outreach 12/17/2024 [facility] Care Teams (unrecognized sec tion and content) Fender Mechanic Apprentice Relationship Specialty Start Date End Date Vini Sparks DO [address] [place] [address] PCP - General Family Practice 08/24/16 Fender Mechanic Apprentice Relationship Specialty Start Date End Date Vini Sparks DO [address] [place] [address] PCP - General Family Practice 08/24/16 Fender Mechanic Apprentice Relationship Specialty Start Date End Date Vini Sparks DO [address] [place] [address] PCP - General Family Practice 08/24/16 Fender Mechanic Apprentice Relationship Specialty Start Date End Date Vini Sparks, DO [address] [place] [address] PCP - General Family Practice 08/24/16 Fender Mechanic Apprentice Relationship Specialty Start Date End Date Vini Sparks, DO [address] [place] [address] PCP - General Family Practice 08/24/16 Fender Mechanic Apprentice Relationship Specialty Start Date End Date Vini Sparks, DO [address] [place] [address] PCP - General Family Practice 08/24/16 Fender Mechanic Apprentice Relationship Specialty Start Date End Date Vini Sparks, DO [address] [place] [address] PCP - General Family Practice 08/24/16 Fender Mechanic Apprentice Relationship Specialty Start Date End Date Vini Sparks, DO [address] [place] [address] PCP - General Family Practice 08/24/16 Fender Mechanic Apprentice Relationship Specialty Start Date End Date Vini Sparks, DO [address] [place] [address] PCP - General Family Practice 08/24/16 Fender Mechanic Apprentice Relationship Specialty Start Date End Date Vini Sparks, DO [address] [place] [address] PCP - General Family Practice 08/24/16 Fender Mechanic Apprentice Relationship Specialty Start Date End Date Vini Sparks, DO [address] [place] [address] PCP - General Family Medicine 08/24/16 Fender Mechanic Apprentice Relationship Specialty Start Date End Date Vini Sparks, DO [address] [place] [address] PCP - General Family Medicine 08/24/16 Fender Mechanic Apprentice Relationship Specialty Start Date End Date Vini Sparks, DO [address] [facility] [place] [address] PCP - General Family Medicine 08/24/16 Fender Mechanic Apprentice Relationship Specialty Start Date End Date Vini Sparks, DO [address] [facility] [place] [address] PCP - General Family Medicine 08/24/16 Fender Mechanic Apprentice Relationship Specialty Start Date End Date Vini Sparks, DO [address] [facility] [place] [address] PCP - General Family Medicine 08/24/16 Fender Mechanic Apprentice Relationship Specialty Start Date End Date Vini Sparks, DO [address] [facility] [place] [address] PCP - General Family Medicine 08/24/16 Owen Lopez, RN [address] [place] [address] Materials Planning Manager Internal Medicine 04/27/22 Fender Mechanic Apprentice Relationship Specialty Start Date End Date Vini Sparks, DO [address] [facility] [place] [address] PCP - General Family Medicine 08/24/16 Owen Lopez, RN [address] [place] [address] Materials Planning Manager Internal Medicine 04/27/22 Fender Mechanic Apprentice Relationship Specialty Start Date End Date Vini Sparks, DO [address] [facility] [place] [address] PCP - General Family Medicine 08/24/16 Owen Lopez, RN [address] [place] [address] Materials Planning Manager Internal Medicine 04/27/22 Fender Mechanic Apprentice Relationship Specialty Start Date End Date Vini Sparks, DO [address] [place] [address] PCP - General Family Medicine 08/24/16 Owen Lopez, RN [address] [place] [address] Materials Planning Manager Internal Medicine 04/27/22 Fender Mechanic Apprentice Relationship Specialty Start Date End Date Vini Sparks, DO [address] [place] [address] PCP - General Family Medicine 08/24/16 Owen Lopez, RN [address] [place] [address] Materials Planning Manager Internal Medicine 04/27/22 Fender Mechanic Apprentice Relationship Specialty Start Date End Date Vini Sparks, DO [address] [place] [address] PCP - General Family Medicine 08/24/16 Owen Lopez, RN [address] [place] [address] Materials Planning Manager Internal Medicine 04/27/22 Fender Mechanic Apprentice Relationship Specialty Start Date End Date Vini Sparks, DO [address] [place] [address] PCP - General Family Medicine 08/24/16 Owen Lopez, RN [address] [place] [address] Materials Planning Manager Internal Medicine 04/27/22 Fender Mechanic Apprentice Relationship Specialty Start Date End Date Vini Sparks, DO [address] [place] [address] PCP - General Family Medicine 08/24/16 Owen Lopez, RN [address] [place] [address] Materials Planning Manager Internal Medicine 04/27/22 Fender Mechanic Apprentice Relationship Specialty Start Date End Date Vini Sparks, DO [address] [place] [address] PCP - General Family Medicine 08/24/16 Owen Lopez, RN [address] [place] [address] Materials Planning Manager Internal Medicine 04/27/22 Fender Mechanic Apprentice Relationship Specialty Start Date End Date Vini Sparks, DO [address] [facility] [place] [address] PCP - General Family Medicine 08/24/16 Owen Lopez, RN [address] [place] [address] Materials Planning Manager Internal Medicine 04/27/22 Fender Mechanic Apprentice Relationship Specialty Start Date End Date Vini Sparks, DO [address] [facility] [place] [address] PCP - General Family Medicine 08/24/16 Owen Lopez, RN [address] [place] [address] Materials Planning Manager Internal Medicine 04/27/22 Fender Mechanic Apprentice Relationship Specialty Start Date End Date Vini Sparks, DO [address] [facility] [place] [address] PCP - General Family Medicine 08/24/16 Owen Lopez, RN [address] [place] [address] Materials Planning Manager Internal Medicine 04/27/22 Fender Mechanic Apprentice Relationship Specialty Start Date End Date Vini Sparks DO [address] [facility] [place] [address] PCP - General Family Medicine 08/24/16 Owen Lopez, RN [address] [place] [address] Materials Planning Manager Internal Medicine 04/27/22 Fender Mechanic Apprentice Relationship Specialty Start Date End Date Vini Sparks DO [address] [facility] [place] [address] PCP - General Family Medicine 08/24/16 Owen Lopez, RN [address] [place] [address] Materials Planning Manager Internal Medicine 04/27/22 Fender Mechanic Apprentice Relationship Specialty Start Date End Date Vini Sparks DO [address] [facility] [place] [address] PCP - General Family Medicine 08/24/16 Owen Lopez, RN [address] [place] [address] Materials Planning Manager Internal Medicine 04/27/22 Fender Mechanic Apprentice Relationship Specialty Start Date End Date Vini Sparks DO [address] [facility] [place] [address] PCP - General Family Medicine 08/24/16 Owen Lopez RN [address] [place] [address] Materials Planning Manager Internal Medicine 04/27/22 Fender Mechanic Apprentice Relationship Specialty Start Date End Date Vini Sparks, [address] [facility] [place] [address] PCP - General Family Medicine 08/24/16 Owen Lopez, RN [address] [place] [address] Materials Planning Manager Internal Medicine 04/27/22 Fender Mechanic Apprentice Relationship Specialty Start Date End Date Vini Sparks, [address] [facility] [place] [address] PCP - General Family Medicine 08/24/16 Owen Lopez, RN [address] [place] [address] Materials Planning Manager Internal Medicine 04/27/22 Fender Mechanic Apprentice Relationship Specialty Start Date End Date Vini Sparks, [address] [facility] [place] [address] PCP - General Family Medicine 08/24/16 Owen Lopez, RN [address] [place] [address] Materials Planning Manager Internal Medicine 04/27/22 Fender Mechanic Apprentice Relationship Specialty Start Date End Date Vini Sparks DO [address] [facility] [place] [address] PCP - General Family Medicine 08/24/16 Owen Lopez, RN [address] [place] [address] Materials Planning Manager Internal Medicine 04/27/22 Fender Mechanic Apprentice Relationship Specialty Start Date End Date Vini Sparks DO [address] [facility] [place] [address] PCP - General Family Medicine 08/24/16 Owen Lopez, RN [address] [place] [address] Materials Planning Manager Internal Medicine 04/27/22 Fender Mechanic Apprentice Relationship Specialty Start Date End Date Vini Sparks DO [address] [facility] [place] [address] PCP - General Family Medicine 08/24/16 Owen Lopez, RN [address] [place] [address] Materials Planning Manager Internal Medicine 04/27/22 Fender Mechanic Apprentice Relationship Specialty Start Date End Date Vini Sparks, [address] [facility] [place] [address] PCP - General Family Medicine 08/24/16 Owen Lopez, RN [address] [place] [address] Materials Planning Manager Internal Medicine 04/27/22 Fender Mechanic Apprentice Relationship Specialty Start Date End Date Vini Sparks DO [address] [facility] [place] [address] PCP - General Family Medicine 08/24/16 Owen Lopez, RN [address] [place] [address] Materials Planning Manager Internal Medicine 04/27/22 Fender Mechanic Apprentice Relationship Specialty Start Date End Date Vini Sparks, [address] [facility] [place] [address] PCP - General Family Medicine 08/24/16 Owen Lopez, RN [address] [place] [address] Materials Planning Manager Internal Medicine 04/27/22 Fender Mechanic Apprentice Relationship Specialty Start Date End Date Vini Sparks DO [address] [facility] [place] [address] PCP - General Family Medicine 08/24/16 Owen Lopez, RN [address] [place] [address] Materials Planning Manager Internal Medicine 04/27/22 Fender Mechanic Apprentice Relationship Specialty Start Date End Date Vini Sparks, [address] [facility] [place] [address] PCP - General Family Medicine 08/24/16 Owen Lopez, RN [address] [place] [address] Materials Planning Manager Internal Medicine 04/27/22 Fender Mechanic Apprentice Relationship Specialty Start Date End Date Vini Sparks, [address] [facility] [place] [address] PCP - General Family Medicine 08/24/16 Owen Lopez, RN [address] [place] [address] Materials Planning Manager Internal Medicine 04/27/22 Fender Mechanic Apprentice Relationship Specialty Start Date End Date Vini Sparks, [address] [facility] [place] [address] PCP - General Family Medicine 08/24/16 Owen Lopez, RN [address] [place] [address] Materials Planning Manager Internal Medicine 04/27/22 Fender Mechanic Apprentice Relationship Specialty Start Date End Date Vini Sparks DO [address] [facility] [place] [address] PCP - General Family Medicine 08/24/16 Owen Lopez, RN [address] [place] [address] Materials Planning Manager Internal Medicine 04/27/22 Fender Mechanic Apprentice Relationship Specialty Start Date End Date Vini Sparks DO [address] [place] [address] PCP - General Family Medicine 08/24/16 Owen Lopez RN [address] [place] [address] Materials Planning Manager Internal Medicine 04/27/22 Fender Mechanic Apprentice Relationship Specialty Start Date End Date Vini Sparks DO [address] [place] [address] PCP - General Family Medicine 08/24/16 Radha Jurado, AGILE COACH.CONSULAR OFFICER [address] [facility] [place] [address] Utility Helicopter Repairer Family Medicine 03/24/24 Fender Mechanic Apprentice Relationship Specialty Start Date End Date Vini Sparks DO [address] [facility] [place] [address] PCP - General Family Medicine 08/24/16 Radha Jurado, AGILE COACH.CONSULAR OFFICER [address] [facility] [place] [address] Utility Helicopter Repairer Family [facility] 03/24/24 Fender Mechanic Apprentice Relationship Specialty Start Date End Date Vini Sparks DO [address] [place] [address] PCP - General Family Medicine 08/24/16 Radha Jurado, AGILE COACH.CONSULAR OFFICER [address] [place] [address] Utility Helicopter Repairer Family [facility] 03/24/24 Fender Mechanic Apprentice Relationship Specialty Start Date End Date Vini Sparks DO [address] [place] [address] PCP - General Family Medicine 08/24/16 Radha Jurado, AGILE COACH.CONSULAR OFFICER [address] [place] [address] Utility Helicopter Repairer [facility] 03/24/24 Fender Mechanic Apprentice Relationship Specialty Start Date End Date Vini Sparks DO [address] [place] [address] PCP - General Family Medicine 08/24/16 Radha Jurado, AGILE COACH.CONSULAR OFFICER [address] [place] [address] [facility] 03/[facility]24 Fender Mechanic Apprentice Relationship Specialty Start Date End Date Vini Sparks DO [address] [place] [address] PCP - General Family Medicine 08/24/16 Radha Jurado, AGILE COACH.CONSULAR OFFICER [address] [place] [address] [facility] 03/24/24 Fender Mechanic Apprentice Relationship Specialty Start Date End Date Vini Sparks DO [address] [place], [place] [id number] PCP - General Family Medicine 08/24/16 [facility] AGILE COACH.CONSULAR OFFICER [address] [place], [place] [address] [facility] 03/24/24 Team Status: Active Member Role/Relationship Status [...] October 15, 2024 End: October 15, 2024 Fender Mechanic Apprentice Relationship Specialty Start Date End Date Vini Sparks DO [address] [place], [place] [address] PCP - General Family Medicine 08/24/16 [facility] Radha, AGILE COACH.CONSULAR OFFICER [address] [place] [address] [facility] 03/24/24 Marilyn Cummings, AGILE COACH.CONSULAR OFFICER [address] [place], [place] [id number] [facility] 09/30/24 Team Status: Inactive Member Role/Relationship Status Dates Dr. Vini Sparks DO Primary Care Provider Active Start: December 12, 2024 End: December 12, 2024 Dr. Vini Sparks DO Referring Provider Active Start: December 12, 2024 End: December 12, 2024 Sarah PEARCE, PA Attending Provider Active Start: December 12, 2024 End: December 12, 2024 Fender Mechanic Apprentice Relationship Specialty Start Date End Date Vini Sparks DO [address] [place] [address] PCP - General Family Medicine 08/24/16 Radha Jurado, AGILE COACH.CONSULAR OFFICER [address] [place] [address] Utility Helicopter Repairer Family Medicine 03/24/24 Marilyn Cummings, AGILE COACH.CONSULAR OFFICER [address] [place] [address] Utility Helicopter Repairer Family [facility] 09/30/24 Team Status: Active Member Role/Relationship Status [...] section and content) DATE CREATED AUTHOR 01/19/2022 [facility] DATE CREATED AUTHOR AUTHOR'S ORGANIZ ATION 01/22/2025 [facility] DATE CREATED AUTHOR AUTHOR'S TIANA ATION 01/28/2025 [facility] FOR RECORDS PERTAINING TO PATIENTS WHO ARE [...] BE BASED ON THE PRIMARY CLINICAL RECORDS. [facility] [employer] [facility]. provides no warranty or guarantee of the accuracy or completeness of information in this document.
[2025-01-31] VITALS (10 sets, daily range): BP systolic 121–136; BP diastolic 70–81; PULSE 61–77; RESP 14–18; TEMP 35.7–36.8; O2SAT 88–99
[2025-01-31 05:58] LABS: Hematocrit 41.2 % (37-47); Hemoglobin 13.0 g/dL (12.0-15.0); Immature Granulocytes Count 0.090 X10^3/uL (0.0-0.0); Mean Corp Hgb Conc 31.6 g/dL (32-36); Mean Corpuscular Volume 93.2 fL (81-99); Mean Platelet Vol. 11.2 fl (6.2-12.0); NRBC Flagged by Analyzer 0 % (0-5); Platelet Count 200 K/mm3 (150-450); RBC Distribution Width CV 14.4 % (11.6-14.6); RBC Distribution Width SD 49.2 fl (35.1-43.9); Red Blood Count 4.42 M/mm3 (4.2-5.4); White Blood Count 11.3 K/mm3 (4.4-11.0)
[2025-01-31 06:47] LABS: Anion Gap 13 (5-15); BUN 18 mg/dL (4-19); BUN/Creat Ratio 21.6 RATIO (10-20); Calcium,Total 8.9 mg/dL (7.6-11.0); Carbon Dioxide 22.6 mmol/L (21.0-32.0); Chloride 102 mmol/L (98-108); Estimated Creatinine Clearance 47.55 ml/min (50-250); Glucose 89 mg/dL (70-99); Potassium 3.6 mmol/L (3.3-5.1)
--- NOTE | 2025-01-31 08:24 | RAD_ITS ---
PROCEDURE: CHEST PA AND LATERAL 01/31/2025 REASON FOR EXAM: CHF TECHNIQUE: Procedure Code: RADCXR Modality: DX Procedure: CHEST PA AND LATERAL COMPARISON: None FINDINGS: Hardware: EKG electrodes are seen. Bilateral reverse shoulder replacements. Heart: Heart size is mildly enlarged. Mediastinum: The mediastinal contour is unremarkable. Lungs: Blunting of the left costophrenic angle with increased markings at the left lung base suggestive of atelectasis and/or scarring. No evidence of CHF. Bones: Degenerative changes are identified within the thoracic spine. Surgical clips are seen in the right upper quadrant most likely secondary to prior cholecystectomy. RAD/Chest PA and Lateral IMPRESSION: Blunting of the left costophrenic angle with increased markings at the left azar g base suggestive of linear atelectasis and/or scarring. Reading Location: [place] [address]
[2025-01-31] MEDS: APIXABAN 5 MG TABLET PO ×2 (09:49→22:08)
--- NOTE | 2025-01-31 10:40 | CASEMGMT ---
SYLVIE LOPEZ Assessment Face to Face with patient for initial transition planning/care coordination assessment. SYLVIE LOPEZ introduced self and role at [facility], pt voices understanding. Pt is A&Ox4 and is resting comfortably in bed and is calm. Care providers, pharmacy, and demographics verified. Admitting dx: Hypoxia due to Acute HF Exacerbation LACE Strata: 2 PCP: Vini Sparks Specialists: RAMIRO Preferred Pharmacy: [facility] Insurance: [facility] A/B, [facility] Supplement Prescription Benefit: Yes LNOK: Jesus (H) Living Arrangements: Pt lives with her in a 2 story home with a FFSU and 3 steps to enter ADLs/IADLs: Indep, 6-Click=24 Transportation: Self, son DME: [employer]. Noted the pt had a recent fall at home. Medical alert resources provided. Pt is currently requiring additional oxygen and may qualify for home oxygen use. A verbal list of local in-network DME companies were provided to the pt at this time. Pt prefers [facility] HHC/SNF: Reports HH hx 10 years ago. Denies SNF Pt?s goal: Home Plan: Home with with the support of the pt's children. Follow for oxygen needs. Noted that the pt is also on Eliquis at home. Pt states that she has never used the once per lifetime savings card and would like this. Resource provided. Pt denies any further concerns at this time and denies the need for HH or OP Tx. Pt states that she feels safe going home with her family's support once medically ready and denies further questions or concerns at this time. Green sheet placed on the chart to facilitate weekend DC if pt were to qualify for oxygen. Carmen Antony RN, CM
[2025-01-31] MEDS: 0.9% Saline Lock 10 ML Syringe IV (16:43)
--- NOTE | 2025-01-31 19:25 | PCM.PN.HOSP ---
Reason for Visit Chief Complaint: shortness of breath Subjective Subjective Patient was seen and examined today, she is currently on 2 L of nasal cannula oxygen, I talked with her daughter who is in the room at the time my examination. Patient's echocardiogram from 09/16/2024 showed a normal ejection fraction at 56. Objective Data Objective Data Vital Signs: Vital Signs Temp Pulse Resp BP Pulse Ox O2 Del Method O2 Flow Rate 98.3 F 77 18 124/76 H 98 Nasal Cannula 2 01/31/25 15:10 01/31/25 15:10 01/31/25 15:10 01/31/25 15:10 01/31/25 15:10 01/31/25 15:10 01/31/25 15:10 Oxygen Flow Rate (L/min) 2 Oxygen Delivery Method Nasal Cannula Weight: 72.3 kg Body Mass Index (BMI) 29.1 Intake & Output: Intake and Output for Last 24 Hours 01/29/25 01/30/25 01/31/25 23:59 23:59 23:59 Intake Total 800 / 800 Output Total 400 / 400 Balance 400 / 400 Lab / Micro Data 01/31/25 05:31 02/01/25 06:16 Labs: Laboratory Results - last 24 hr 01/31/25 05:31: WBC 11.3 H, RBC 4.42, Hgb 13.0, Hct 41.2, MCV 93.2, MCH 29.4, MCHC 31.6 L, RDW Std Deviation 49.2 H, RDW Coeff of Beni 14.4, Plt Count 200, MPV 11.2, Immature Gran % (Auto) 0.800, Neut % (Auto) 73.4 H, Lymph % (Auto) 9.9 L, Guthrie % (Auto) 9.8, Eos % (Auto) 5.2 H, Baso % (Auto) 0.9, Absolute Neuts (auto) 8.3 H, Absolute Lymphs (auto) 1.11, Nucleated RBC % 0, Sodium 138, Potassium 3.6, Chloride 102, Carbon Dioxide 22.6, Anion Gap 13, BUN 18, Creatinine 0.82, Estim Creat Clear Calc 47.55 L, Est GFR (MDRD) Non-Af 71, BUN/Creatinine Ratio 21.6 H, Glucose 89, Calcium 8.9 Radiography Diagnostic Testing: Radiology Impression Chest X-Ray 01/31/25 08:24 IMPRESSION: Blunting of the left costophrenic angle with increased markings at the left lung base suggestive of linear atelectasis and/or scarring. Reading Location: [place] [address] Physical Exam Const alert, oriented x3 and no apparent distress General Appearance: cooperative, well kempt and well developed Orientation / Consciousness: awake, oriented to person, oriented to place and oriented to time HEENT normocephalic, head/scalp atraumatic and moist oral mucous membranes Eyes PERRL, EOMs intact bilaterally and conjunctivae normal Neck supple, no JVD, thyroid normal and no carotid bruits General: trachea midline Resp normal respiratory effort, no retractions, no use of accessory muscles and clear to auscultation bilaterally Auscultation: Negative for rales, rhonchi or wheezes Cardio regular rate, regular rhythm, S1 normal heart sound, S2 normal heart sound, no murmurs, no rub and no gallops GI normal to inspection, nondistended, normoactive bowel sounds, soft to palpation, non-tender and non-distended Extremity no clubbing, cyanosis or edema Skin no rashes or lesions noted General Skin Exam: no breakdown Neuro oriented x3, CN's II-XII intact bilaterally, moves all extremities, no focal motor deficits and no sensory deficits noted Sensorium / Orientation: awake and alert Speech: speech normal Psych affect normal Assessment & Plan Assessment/Plan (1) Acute heart failure: PLAN: Plan 1. Acute diastolic congestive heart failure-patient will continue on IV diuresis #2 hypoxia due to acute diastolic congestive heart failure-pulse ox will be monitored patient is on low-flow oxygen presently #3 hypothyroidism-patient is on Synthroid #4 essential hypertension-patient remains on her home medications, they will be adjusted if necessary #5 chronic depression-patient is on Zoloft #6 chronic use of anticoagulation due to history of atrial fibrillation-patient will remain on Eliquis Total clinical time spent by myself addressing the patient's medical issues, reviewing all of her data, and collaborating with patient's care team: 35-minute Charges/Coding Visit Charges Inpatient E&M: 79342 Subs Hosp L2
[2025-02-01 04:23] VITALS: BMI 28.9
[2025-02-01 04:30] VITALS: BP 127/78; PULSE 81; RESP 16; TEMP 36.2; O2SAT 98
[2025-02-01 07:12] LABS: Anion Gap 11 (5-15); BUN 20 mg/dL (4-19); BUN/Creat Ratio 22.6 RATIO (10-20); Calcium,Total 9.2 mg/dL (7.6-11.0); Carbon Dioxide 28.5 mmol/L (21.0-32.0); Chloride 100 mmol/L (98-108); Estimated Creatinine Clearance 43.66 ml/min (50-250); Glucose 99 mg/dL (70-99); Potassium 3.6 mmol/L (3.3-5.1)
[2025-02-01 08:38] VITALS: O2SAT 84; O2SAT 92; O2SAT 96
[2025-02-01] MEDS: APIXABAN 5 MG TABLET PO (09:20)
[2025-02-01 09:21] VITALS: BP 111/59; PULSE 80; RESP 18; TEMP 36.4; O2SAT 96
[2025-02-01 11:26] VITALS: BP 109/76; PULSE 74
[2025-02-01 12:11] VITALS: BP 109/76; PULSE 74; RESP 18; O2SAT 92
--- NOTE | 2025-02-01 13:21 | DCINST_ITS ---
Discharge Instructions DC O2, CPAP, BIPAP needs Home O2 Discharge instructions: No Dressing / Incision Discharge Activity: Return to Normal Activity Follow Up Care Test Results: Test results from this visit will be discussed in further detail at your follow- up appointment, if applicable. Discharge Plan Admission Admit Date/Time: 01/30/25 22:11 Primary Reason for Your Visit: Congestive heart failure, hypoxia Attending Provider: Luis Miguel Layne Primary Care Provider: Vini Sparks Consulting Providers: Iva Johns Discharge Orders/Prescriptions Prescriptions: New furosemide [Lasix] 40 mg tablet 40 mg PO BID Qty: 60 0RF potassium chloride [Klor-Con 10] 10 mEq tablet extended release 20 meq PO DAILY Qty: 60 0RF Continued amlodipine 5 mg tablet 5 mg PO QDAY pravastatin 40 mg tablet 40 mg PO QHS losartan 50 mg tablet 50 mg PO QDAY vitamin B complex Tablet 1 tab PO QDAY sertraline 50 mg tablet 50 mg PO QHS levothyroxine 112 mcg tablet 112 mcg PO QDAY apixaban 5 mg tablet 5 mg PO BID Qty: 200 3RF amiodarone 200 mg tablet 200 mg PO QDAY Qty: 60 1RF Rx Instructions: Take 400mg (2 tabs) twice daily for 10 days. Then one 200mg (1 tab) daily calcium carbonate 500 MG tablet 1,500 mg PO QHS metoprolol tartrate 50 mg tablet 50 mg PO BID Referrals / Follow Up: Vini Sparks DO [Primary Care Provider, Medical] - See Referral Note Referral Note: At your next scheduled visit Srinath Bustos MD [Med Staff - Active Staff, Cardiology] - See Referral Note Referral Note: As scheduled, have Dr. Bustos perform a walking pulse oxygen test on you when you are seen Disposition Disposition (needs filled in before D/C Order can be placed): Home, Self Care
--- NOTE | 2025-02-01 13:25 | DS.PCM_ITS ---
Providers Date of Admission: 01/30/25 Date of Discharge: 02/01/25 Primary Care Physician: Dr. Vini Sparks, Reason For Visit: HYPOXIA DUE TO ACUTE HEART FAILURE EXACERBATION Diagnosis Discharge Diagnosis (1) Paroxysmal atrial fibrillation: Status: Acute Code(s): I48.0 - Paroxysmal atrial fibrillation (2) Hypoxia: Status: Acute Code(s): R09.02 - Hypoxemia (3) Acute heart failure: Status: Acute Code(s): I50.9 - Heart failure, unspecified Plan 1. Acute diastolic congestive heart failure-patient will continue on IV diuresis #2 hypoxia due to acute diastolic congestive heart failure-pulse ox will be monitored patient is on low-flow oxygen presently #3 hypothyroidism-patient is on Synthroid #4 essential hypertension-patient remains on her home medications, they will be adjusted if necessary #5 chronic depression-patient is on Zoloft #6 chronic use of anticoagulation due to history of atrial fibrillation-patient will remain on Eliquis #7 acute T12 compression fracture present on admission secondary to osteoporosis Patient did not have recurrent congestive heart failure Medications at Discharge Home Medications calcium carbonate 1,500 mg PO QHS SUPPLEMENT 11/13/17 amlodipine 5 mg tablet 5 mg PO QDAY blood pressure 09/30/24 losartan 50 mg tablet 50 mg PO QDAY blood pressure 09/30/24 pravastatin 40 mg tablet 40 mg PO QHS cholesterol 09/30/24 vitamin B complex 1 tab PO QDAY vitamin 09/30/24 levothyroxine 112 mcg tablet 112 mcg PO QDAY thyroid 12/12/24 apixaban 5 mg tablet 5 mg PO BID blood thinner #200 tabs 12/13/24 amiodarone 200 mg tablet 200 mg PO QDAY heart rate #60 tabs 01/16/25 sertraline 50 mg tablet 50 mg PO QHS mental health 01/16/25 metoprolol tartrate 50 mg tablet 50 mg PO BID blood pressure 01/30/25 furosemide 40 mg tablet (Lasix) 40 mg PO BID #60 tabs 02/01/25 potassium chloride 10 mEq tablet,extended release (Klor-Con) 20 meq (2 x 10 mEq) PO DAILY #60 tabs 02/01/25 Hospital Course Operations None Procedures None Summary of Care Provided Minutes Spent on Discharge: 32 Hospital Course: This 84-year-old white female was transferred to [facility] PCU from [facility] ER where she went for evaluation after having a fall, she was noted to be hypoxic in the emergency room, she was noted to have a mild acute T12 compression fracture but no other significant orthopedic findings. Patient was noted to be hypoxic at rest on room air with a saturation of 87% and hypoxic with exertion on room air at 83%. CT of the chest showed no evidence of PE but showed interstitial edema with small bilateral pleural effusions and bibasilar subsegmental parenchymal consolidation adjacent to pleural effusions. Beta natruretic peptide was more than 3000. Patient was admitted to PCU and placed on IV diuretics, on 02/01/2025, patient underwent a walking oxygen home qualification test which showed her pulse ox on room air to be adequate but her oxygen saturation when she walked on room air was 84%. I had a discussion with the patient concerning home oxygen usage and because she was not symptomatic walking without oxygen and she chose not to go home with oxygen. She had an upcoming appoint with cardiology and I asked her to have cardiology do a repeat pulse ox on room air walking when she was seen. On 02/01/2025, patient was seen and examined: On examination she appeared in good health and spirits, she does not appear to be in any distress. Vital signs as documented. Skin warm and dry and without overt rashes. Neck without JVD, thyroid appears normal, trachea is midline, neck is supple. Lungs clear, normal air movement was noted. Heart exam notable for regular rhythm, normal sounds and absence of murmurs, rubs or gallops. Abdomen unremarkable and without evidence of organomegaly, masses, or abdominal aortic enlargement, bowel sounds are present in all 4 quadrants, no abdominal tenderness was noted. Extremities nonedematous, no cyanosis was noted, no clubbing was noted. Neuro: Cranial nerves II through XII are grossly intact, no focal motor deficits were noted, sensation to light touch and pinprick is intact, motor exam 5/5 throughout. Psych: Patient is alert and oriented x3, she does not appear anxious or depressed, she does not appear agitated. As a further note, patient has never had congestive heart failure before this admission. Patient was discharged home in stable condition on 02/01/2025 Weight / BMI Weight Weight: 71.8 kg Body Mass Index (BMI) 28.9 ABG / Lab / Microbiology Data 01/31/25 05:31 02/01/25 06:16 Laboratory: Laboratory Results - last 24 hr 02/01/25 06:16: Sodium 139, Potassium 3.6, Chloride 100, Carbon Dioxide 28.5, Anion Gap 11, BUN 20 H, Creatinine 0.89, Estim Creat Clear Calc 43.66 L, Est GFR (MDRD) Non-Af 64, BUN/Creatinine Ratio 22.6 H, Glucose 99, Calcium 9.2 D/C Instructions DC O2, CPAP, BIPAP Needs Home O2 Discharge instructions: No Meaningful Use Info Meaningful Use Meaningful Use Diagnoses (Choose all that apply): CHF CHF SINDY/ARB ordered at discharge?: Yes Reason SINDY/ARB not ordered?: Not indicated Documented LVEF (%): 55 Discharge Plan Admission Admit Date/Time: 01/30/25 22:11 Primary Reason for Your Visit: Congestive heart failure, hypoxia Attending Provider: Luis Miguel Layne Primary Care Provider: Vini Sparks Consulting Providers: Iva Johns Discharge Orders/Prescriptions Prescriptions: New furosemide [Lasix] 40 mg tablet 40 mg PO BID Qty: 60 0RF potassium chloride [Klor-Con 10] 10 mEq tablet extended release 20 meq PO DAILY Qty: 60 0RF Continued amlodipine 5 mg tablet 5 mg PO QDAY pravastatin 40 mg tablet 40 mg PO QHS losartan 50 mg tablet 50 mg PO QDAY vitamin B complex Tablet 1 tab PO QDAY sertraline 50 mg tablet 50 mg PO QHS levothyroxine 112 mcg tablet 112 mcg PO QDAY apixaban 5 mg tablet 5 mg PO BID Qty: 200 3RF amiodarone 200 mg tablet 200 mg PO QDAY Qty: 60 1RF Rx Instructions: Take 400mg (2 tabs) twice daily for 10 days. Then one 200mg (1 tab) daily calcium carbonate 500 MG tablet 1,500 mg PO QHS metoprolol tartrate 50 mg tablet 50 mg PO BID Referrals / Follow Up: Vini Sparks DO [Primary Care Provider, Medical] - See Referral Note Referral Note: At your next scheduled visit Srinath Bustos MD [Med Staff - Active Staff, Cardiology] - See Referral Note Referral Note: As scheduled, have Dr. Bustos perform a walking pulse oxygen test on you when you are seen Disposition Disposition (needs filled in before D/C Order can be placed): Home, Self Care Charges/Coding Visit Charges Inpatient E&M: 88602 Disch Hosp >30min
--- NOTE | 2025-02-01 13:31 | NURSING ---
Qualifies for oxygen. Refuses home oxygen set up.
--- NOTE | 2025-02-01 14:27 | NURSING ---
Pt and family given discharge instructions including medications, follow up appointments and all other discharge instructions. telemetry removed and placed at nurses station, Iv's removed with catheter intact, clean dry dressing applied, pt tolerated well. pt denies any further questions or needs at this time. Pt being wheeled out to daughters waiting vehicle.
== END 2025-02-01 14:25 | disposition home or self-care (01) | DRG 291 ==
PROVIDERS: Admitting Provider Student in an Organized Health Care Education/Training Program; PCP Student in an Organized Health Care Education/Training Program; Referring Provider Student in an Organized Health Care Education/Training Program; Visit Provider Internal Medicine
DX: I11.0 Hypertensive heart disease with heart failure (principal); I50.31 Acute diastolic (congestive) heart failure; M80.08XA Age-related osteoporosis with current pathological fracture, vertebra(e), initial encounter for fracture; I48.20 Chronic atrial fibrillation, unspecified; E03.9 Hypothyroidism, unspecified; Z79.01 Long term (current) use of anticoagulants; F32.A Depression, unspecified; I48.0 Paroxysmal atrial fibrillation; F41.9 Anxiety disorder, unspecified; I25.10 Atherosclerotic heart disease of native coronary artery without angina pectoris; E78.00 Pure hypercholesterolemia, unspecified; R09.02 Hypoxemia; Z79.890 Hormone replacement therapy; Z79.899 Other long term (current) drug therapy; Z96.659 Presence of unspecified artificial knee joint; Z90.10 Acquired absence of unspecified breast and nipple; Z90.49 Acquired absence of other specified parts of digestive tract; Z85.3 Personal history of malignant neoplasm of breast
CPT/HCPCS: 36415; 71046; 80048; 85025; 92960; 93005; 97116; 97162; 97166; 97530; 97802; A4216; J1938

== ENCOUNTER → 2025-02-25 | Outpatient (CLI) | payer MEDICARE, OTHER, SELFPAY | END | disposition home or self-care (01) | LOC: PSN 10:43 | PROVIDERS: PCP Student in an Organized Health Care Education/Training Program; Referring Provider Student in an Organized Health Care Education/Training Program; Visit Provider Student in an Organized Health Care Education/Training Program | DX: I48.91 Unspecified atrial fibrillation (principal); R00.1 Bradycardia, unspecified | CPT/HCPCS: 93225; 93226 ==

== ENCOUNTER → 2025-03-06 | Outpatient (CLI) | payer MEDICARE, OTHER, SELFPAY ==
[2025-03-06 13:37] LABS: Anion Gap 10 (5-15); BUN 19 mg/dL (4-19); BUN/Creat Ratio 18.2 RATIO (10-20); Calcium,Total 9.2 mg/dL (7.6-11.0); Carbon Dioxide 25.4 mmol/L (21.0-32.0); Chloride 107 mmol/L (98-108); Glucose 86 mg/dL (70-99); Potassium 5.4 mmol/L (3.3-5.1)
== END | disposition home or self-care (01) ==
LOC: LAB 12:13
PROVIDERS: PCP Student in an Organized Health Care Education/Training Program; Referring Provider Student in an Organized Health Care Education/Training Program; Visit Provider Student in an Organized Health Care Education/Training Program
DX: I50.9 Heart failure, unspecified (principal)
CPT/HCPCS: 36415; 80048